=== PATIENT | female | born 1955 | race Hispanic/Latino ===

== ENCOUNTER → 2022-06-14 | Outpatient (CLI) | payer OTHER | END | disposition home or self-care (01) | LOC: RAH 14:08 | PROVIDERS: ATTEND Internal Medicine Critical Care Medicine | DX: I70.213 Atherosclerosis of native arteries of extremities with intermittent claudication, bilateral legs (principal) | CPT/HCPCS: 93925 ==

== ENCOUNTER 2025-01-22 08:07 | Inpatient (IN) | payer OTHER ==
[2025-01-22] VITALS (61 sets, daily range): BP systolic 58–136; BP diastolic 32–78; PULSE 91–140; RESP 5–20; TEMP 97.3; O2SAT 98–100
[~2025-01-22] VITALS: Ht 400 cm; Wt 95.7 kg
[2025-01-22 08:57] LABS: IMMATURE GRANULOCYTE ABSOLUTE 0.06 K/uL (0-1); NUCLEATED RED BLOOD CELLS 0.0 % (0.0-0.19); PLATELET COUNT (AUTO) 456 K/uL (130-400); RED BLOOD CELL COUNT(AUTO) 3.15 MIL/uL (4.00-5.50); RED CELL DISTRIBUTION WIDTH 16.6 % (11.0-15.5); WHITE BLOOD COUNT (AUTO) 9.1 K/uL (4.8-10.8)
[2025-01-22 09:10] LABS: CREATININE 1.7 mg/dL (0.5-1.0); GLOMERULAR FILTR. RATE CALC 32.0 mL/min (>90); GLUCOSE,RANDOM 234.0 mg/dL (70-105); SODIUM SERUM 138.0 mmol/L (136-145); UREA NITROGEN, BLOOD 33.0 mg/dL (7-18)
[2025-01-22 09:14] LABS: ASPARTATE AMINOTRANSFERASE 42.0 U/L (10-37); TOTAL PROTEIN, SERUM 5.0 g/dL (6.0-8.3)
--- NOTE | 2025-01-22 10:00 | HMCIMG ---
EXAM: Chest radiograph 1 view HISTORY: Chest pain COMPARISON: None FINDINGS: No pulmonary consolidations. No pleural effusion or pneumothorax. Enlarged cardiac silhouette. Tortuous calcified aorta. No overt congestion. Degenerative changes. IMPRESSION: No acute cardiopulmonary disease. /[place]ell
--- NOTE | 2025-01-22 10:51 | HMCIMG ---
CT ABDOMEN/PELVIS W/O CONTRAST REASON: gi bleed COMPARISON: None. FINDINGS: Lung bases are clear. There is a small left-sided pleural effusion. There is coronary calcifications suggesting coronary artery disease. There is suggestion of small pericardial effusion. There is a moderate size hiatal hernia. . There are no focal liver lesions. There are normal-appearing kidneys.. Spleen and pancreas appear unremarkable. The gallbladder appears normal as well. There is a feeding gastrostomy tube in place. Bowel loops appear unremarkable. This includes normal appearance of the appendix . There is fecal stasis in the rectal vault. Abutting the right lobe of the bowel in the right lower quadrant and abutting the right psoas muscle there is a a cystic structure measuring 5.9 x 3.9 cm. There is no evidence of free fluid or intraperitoneal air. There are no focal fluid collections. The retroperitoneum appear normal as do pelvic soft tissue structures. Aorta and iliac vessels demonstrate diffuse atherosclerotic changes. The anterior abdominal wall is intact. Osseous structures appear unremarkable. The uterus is surgically absent. IMPRESSION: 1. No acute process seen in CT of abdomen and pelvis without intravenous contrast 2. In the right adnexal region there is a cystic structure measuring 5.9 x 3.9 cm 3. Fecal stasis impaction seen in the rectal vault CT was performed with one or more following dose reduction techniques: automated exposure control, adjustment of the mA and kv according to patient's size, or use of a iterative reconstruction technique.
[2025-01-22] MEDS: NOREPINEPHRIN 4MG/NS 250ML 250 ML IV SCH (11:06)
--- NOTE | 2025-01-22 11:11 | ERN ---
General Chief Complaint: Hematemesis/Vomiting Blood Stated Complaint: COFFEE GROUND EMESIS Time Seen by MD: 08:09 Source: patient History of Present Illness Initial Comments Patient is a 70-year-old female went in to be evaluated for GI bleed. Per has been patient had been evaluated in the past for a similar episode was diagnosed with peptic/gastric ulcers. Patient does has a PEG tube in place but has been states he does not use it. PEG tube was placed two weeks ago. Allergies: Coded Allergies: No Known Drug Allergies (Unverified Allergy, Unknown, 01/22/25) Past Medical History Past Medical History: Anemia, CVA, Diabetes-Type II, Hypertension, Seizure, Vascular Disease Past Surgical History: Unknown ROS Dictation CONSTITUTIONAL: No chills, no fever, no weakness, no diaphoresis, no malaise. HEAD/FACE: No signs of trauma. EENT: No eye pain, no blurred vision, no tearing, no double vision, no ear pain, no ear discharge, no nose pain, no nasal congestion, no throat pain, no throat swelling, no mouth pain. RESPIRATORY: No cough, no orthopnea, no SOB, no stridor, no wheezing. CARDIOVASCULAR: No chest pain, no edema, no palpitations, no syncope. GASTROINTESTINAL/ABDOMINAL: abdominal pain, constipation, no diarrhea, no nausea, no vomiting. GENITOURINARY: No abnormal discharge, no dysuria, no frequent urination, no hematuria. No complaints of pain in the genitals. MUSCULOSKELETAL: No back pain, no gout, no joint pain, no joint swelling, no muscle pain, no muscle stiffness, no neck pain. INTEGUMENTARY: No change in color, no change in hair/nails, no dryness, no lesion, no lumps, no rash. NEUROLOGICAL/PSYCH: No anxiety, not depressed, no emotional problem, no headache, no numbness, no pre-existing deficit, no history of seizures, no tremors, no weakness. HEMATOLOGIC/LYMPHATIC: Not anemic, no history of blood clots, no apparent bleeding, no bruising, glands not swollen. All Systems Negative, Except as Noted. Physical Exam Physical Exam Dictation VITAL SIGNS: Reviewed. GENERAL APPEARANCE: Alert, oriented x3, no acute distress, obese. HEAD AND FACE: Non-traumatic. EYES: PERRL, pink conjunctivas, eyelid no trauma, anterior chamber clear. EARS: Pinnas intact and no signs of trauma or erythema. Ear canals clear and no discharge. TMs no erythema. NOSE: No discharge, no bleeding. OROPHARYNX: Mouth normal, teeth no caries, tongue pink. Pharynx clear, no erythema. Tonsils no exudates, no abscesses noted. Mucous membrane moist. NECK: Supple, non-tender, no thyromegaly, no masses, no JVD, no bruits. BREAST: Deferred. CHEST: No tenderness, no crepitus, no paradoxical movement, no retractions. LUNGS: Clear, well-ventilated, symmetric, no rales, no wheezing, no rhonchi, no stridor, good breath sounds bilaterally. HEART: Regular rate, regular rhythm, no murmur, no gallops. VASCULAR: No peripheral edema. ABDOMEN: Soft, positive bowel sounds, nondistended, no guarding, nontender, no rebound, no masses no hepatomegaly, no splenomegaly, no Hunt's sign, no hernias. PEG tube in place RECTAL: Deferred. GENITAL: Deferred. NEUROLOGICAL: Normal speech, gross motor function intact, gross sensory function intact. MUSCULOSKELETAL: Neck nontender, full range of motion, back nontender, full range of motion. EXTREMITIES: Nontender, full range of motion. SKIN: Color pink, dry, no turgor, no rash, no lacerations, no abrasions, no contusions. LYMPHATICS: Deferred. Results Laboratory and Microbiology Lab and Micro Result Laboratory Tests Test 01/22/25 08:53 White Blood Count 9.1 K/uL (4.8-10.8) Red Blood Count 3.15 MIL/uL (4.00-5.50) L Hemoglobin 9.1 g/dL (12.0-16.0) L Hematocrit 27.3 % (36-48) L Mean Corpuscular Volume 86.7 fL (79-99) Mean Corpuscular Hemoglobin 28.9 pg (27.0-33.0) Mean Corpuscular Hemoglobin Concent 33.3 g/dL (32.0-36.0) Red Cell Distribution Width 16.6 % (11.0-15.5) H Platelet Count 456 K/uL (130-400) H Mean Platelet Volume 10.2 fL (7.5-10.5) Immature Granulocyte % (Auto) 0.7 % (0-1) Neutrophils (%) (Auto) 67.8 % (40.0-77.0) Lymphocytes (%) (Auto) 22.7 % (21.0-51.0) Monocytes (%) (Auto) 7.1 % (3.0-13.0) Eosinophils (%) (Auto) 0.9 % (0.0-8.0) Basophils (%) (Auto) 0.8 % (0.0-5.0) Neutrophils # (Auto) 6.2 K/uL (1.8-7.7) Lymphocytes # (Auto) 2.1 K/uL (1.0-4.8) Monocytes # (Auto) 0.6 K/uL (0.1-1.0) Eosinophils # (Auto) 0.08 K/uL (0.00-0.70) Basophils # (Auto) 0.07 K/uL (0.00-0.20) Absolute Immature Granulocyte (auto 0.06 K/uL (0-1) Nucleated Red Blood Cells 0.0 % (0.0-0.19) Sodium Level 138 mmol/L (136-145) Potassium Level 3.1 mmol/L (3.5-5.1) L Chloride Level 102 mmol/L (101-111) Carbon Dioxide Level 33 mmol/L (21-32) H Blood Urea Nitrogen 33 mg/dL (7-18) H Creatinine 1.7 mg/dL (0.5-1.0) H Glomerular Filtration Rate Calc 32 mL/min (>90) Random Glucose 234 mg/dL (70-105) H Total Calcium 7.6 mg/dL (8.5-10.1) L Total Bilirubin 0.5 mg/dL (0.2-1.0) Aspartate Amino Transf (AST/SGOT) 42 U/L (10-37) H Alanine Aminotransferase (ALT/SGPT) 15 U/L (12-78) Alkaline Phosphatase 153 U/L (50-136) H Total Protein 5.0 g/dL (6.0-8.3) L Albumin 0.9 g/dL (3.5-5.0) L Lipase 16 U/L (16-77) Labs Reviewed?: Yes MDM MDM: Differential diagnosis: GI bleed, peptic ulcer disease, constipation, hypotension, Rationale: Tests considered and ordered secondary to shared decision making include: Previous outside records reviewed: Old ER visits. Risk of complication and/or morbidity or mortality of patient management: None Medications-Per medication reconciliation Need for hospitalization: Patient does meet criteria for hospitalization. Need for emergency major/minor surgery: No There are no social concerns with this patient. Prescription drug management Prescriptions will include symptomatic care Patient's prior external medical records from other ER visits were reviewed by me as indicated. Prior testing and results from previous visits were reviewed. Prior tests were taken into account with medical decision making and resource utilization, independent historian/historians were used to obtain complete medical history. I independently interpreted the test that were performed, results were reviewed by me and considered findings on radiology if ordered. Medical management and examination interpretation discussions were had by me with other qualified healthcare professionals as indicated for the patient's care. Consulted tube room supervisor on the case, patient will be admitted under the care of hospitalist group. ED Course Orders Procedure Category Date Status Time Cbc With Differential LAB 01/22/25 Complete 08:18 Comprehensive LAB 01/22/25 Complete Metabolic Panel 08:18 Urinalysis Profile LAB 01/22/25 Logged 08:18 Occult Blood Stool LAB 01/22/25 Logged Single Only 08:18 Chest 1vw RAD 01/22/25 Resulted 08:18 Lipase LAB 01/22/25 Complete 08:18 Pantoprazole 40mg Inj PHA 01/22/25 Complete (Protonix 40mg Inj 09:00 Pantoprazole 40mg Inj PHA 01/22/25 In Process (Protonix 40mg Inj 09:00 Norepinephrin 4mg/Ns PHA 01/22/25 In Process 250ml (Levophed 4mg 10:00 Ct Abdomen/Pelvis W/O CT 01/22/25 Resulted Contrast 09:48 Potassium Chloride PHA 01/22/25 In Process 10meq/100ml (Potassiu 10:30 Type And Screen BBK 01/22/25 Logged 11:13 Current Medications Medications (Trade) Dose Ordered Sig/Arik Route PRN Reason Start Time Stop Time Status Last Admin Dose Admin Norepinephrine 250 ml @ 0 mls/hr PROTOCOL IV 01/22/25 10:00 02/21/25 09:59 01/22/25 11:06 Pantoprazole Sodium (PROTonix 40MG INJ) 80 mg ONCE ONCE IVP 01/22/25 09:00 01/22/25 09:01 DC 01/22/25 09:02 Pantoprazole Sodium 80 mg/ Sodium Chloride 100 ml @ 10 mls/hr Q10H IV 01/22/25 09:00 02/21/25 08:59 01/22/25 09:35 Potassium Chloride 100 ml @ 100 mls/hr ONCE ONCE IV 01/22/25 10:30 01/22/25 11:29 Vital Signs Date Time Temp Pulse Resp B/P (MAP) Pulse Ox O2 Delivery O2 Flow Rate FiO2 01/22/25 11:06 86/47 01/22/25 10:04 97.7 106 16 91/52 96 Room Air* 0 21 01/22/25 09:20 97.7 109 16 86/42 97 Room Air* 0 21 01/22/25 08:09 97.5 74 16 169/108 96 Room Air 0 Critical Care Note Comments Critical Care Procedure Note Authorized and Performed by: me Total critical care time: Approximately 36 minutes Due to a high probability of clinically significant, life threatening deterioration, the patient required my highest level of preparedness to intervene emergently and I personally spent this critical care time directly and personally managing the patient. This critical care time included obtaining a history; examining the patient; pulse oximetry; ordering and review of studies; arranging urgent treatment with development of a management plan; evaluation of patient's response to treatment; frequent reassessment; and, discussions with other providers. This critical care time was performed to assess and manage the high probability of imminent, life-threatening deterioration that could result in multi-organ failure. It was exclusive of separately billable procedures and treating other patients and teaching time. Please see MDM section and the rest of the note for further information on patient assessment and treatment. DX & DISP Disposition: Inpatient Decision to Admit Time: 11:22 Departure Impression: Primary Impression: GI bleed Additional Impressions: Peptic ulcer disease, Impaction of colon, Hypotension Condition: Stable Referrals: WILLIAMS COLLIER (PCP) JULISA PETERSON MD Jan 22, 2025 11:11
--- NOTE | 2025-01-22 11:35 | NUR ---
RSI DONE AT THIS TIME ON PATIENT DUE TO HEMATEMESIS EPISODE AND LETHARGY NOTED. 11:36 100 MG KETAMINE GIVEN IV PUSH FOLLOWED WITH 10 CC FLUSH AND 50 MG ROCURONIUM GIVEN IV PUSH AND FOLLOWED WITH 10 CC FLUSH. 11:37 PATIENT INTUBATED WITH 7.5 SIZE TUBE AND 25 AT THE LIP. 11:39 PATIENT NOTED TO HAVE PRESSURE WOUNDS TO THE GLUTEAL AREA, PICTURES TAKEN AND WOUND CENTER NOTIFIED.
--- NOTE | 2025-01-22 11:35 | NUR ---
transferred pt care to pedor luis martinez. pt is going to intubated.
--- NOTE | 2025-01-22 11:49 | HP ---
[facility] HISTORY AND PHYSICAL Date of Service: Jan 22, 2025 Time of Service: 11:48 HISTORY OF PRESENT ILLNESS: 70-year-old female with past medical history of diabetes mellitus type 2, hypertension, anemia, history of CVA, history of right below-knee amputation who presented to the hospital secondary to hematemesis. Patient is currently intubated and sedated. The patient's history is mostly obtained from patient's who is present at bedside and from ED provider. The patient was noted to have black colored vomit at home which started yesterday. She has a history of peptic ulcer disease. She also has a PEG tube placed around two weeks ago. Peg tube was placed in [facility]. Per patient is able to swallow better now. denied any fever, chills, shortness for breath, chest pain. History is fairly limited at this time as patient is not able to participate in conversation. Labs were Notable for white count of 9.1, hemoglobin was 9.1, MCV was 86.7, platelet count was 456 K, sodium was 138, potassium was 3.1, bicarb was , creatinine was 1.7, glucose was 234, alk-phos was 153, total protein was 5.0, albumin was 0.9, lipase was negative normal Underwent a CT abdomen pelvis which showed no acute process in the CT abdomen without IV contrast. Patient was noted to have cystic structure in the right adrenal region measuring 5.9 x 3.9 cm. The patient also had fecal impaction noted. In the ED patient had episode of hematemesis and she was intubated for airway protection by ED provider. REVIEW OF SYSTEMS CONSTITUTIONAL: Denies fevers, chills, or night sweats. No unintentional weight loss reported. NEUROLOGICAL: Denies headache, amaurosis fugax, motor weakness, sensory deficit, vertigo/spinning sensation, gait abnormalities, or tremors. ENT: No hearing loss, otalgia, otorrhea, rhinitis, rhinorrhea, hoarseness, or sore throat. CARDIOVASCULAR: Denies any exertional angina, dyspnea on exertion, orthopnea, paroxysmal nocturnal dyspnea, palpitations, life-threatening arrhythmias, claudication. PULMONARY: Denies any shortness of breath, cough, phlegm/sputum, hemoptysis, pleuritic chest pain. GASTROINTESTINAL: Positive for nausea, vomiting, hematemesis. Denied hematochezia, melena GENITOURINARY: Denies frequency, urgency, nocturia, hematuria or incontinence (Storage/Irritative symptoms.) Low urinary stream, straining to void, urinary intermittency or hesitancy, splitting of the voiding stream, terminal dribbling. ENDOCRINOLOGIC: Denies polyuria, polydipsia, polyphagia or heat/cold intolerances. HEMATOLOGIC: Denies thrombophilia/previous clots, or coagulopathy/bleeding disorders. ONCOLOGIC: Denies personal history of malignancy. DERMATOLOGIC: Denies rashes or pruritus. PSYCHIATRIC: Denies any suicidal or homicidal ideation. Denies hallucinations. PAST MEDICAL HISTORY: Diabetes mellitus type 2, hypertension, anemia, history of CVA history of right below-knee amputation PAST SURGICAL HISTORY: Right below-knee amputation History of PEG tube placement PAST SOCIAL HISTORY: Unable to obtain FAMILY HISTORY: Unable to obtain Coded Allergies: No Known Drug Allergies (Unverified Allergy, Unknown, 01/22/25) PHYSICAL EXAM GENERAL APPEARANCE: He is currently intubated and sedated NEUROLOGICAL: Cranial nerves II-XII grossly intact. Motor is 5/5 in bilateral upper and lower extremities proximal to distal. No sensory deficits. HEENT: Face is symmetric. Pupils are equal and reactive. Extraocular movements are intact. NECK: Supple. No JVD. No thyromegaly. No submental, submandibular, pre- /postauricular, occipital or supraclavicular lymphadenopathy. CHEST: Normal chest expansion. No Telemetry. LUNGS: Absence of any rales, rhonchi or any wheezing. CARDIOVASCULAR: Regular. S1 and S2 normal. No appreciable rubs, murmurs or gallops. ABDOMEN: Soft, nontender, and nondistended. There is no rebound, voluntary guarding, or rigidity. Patient has a PEG tube in place : Deferred. No Kamara. EXTREMITIES: Below-knee amputation of the right lower extremity SKIN: No skin breakdown. Vital Sign (Last 24 Hours) 01/22/25 01/22/25 10:04 11:06 Temp 97.7 Pulse 106 Resp 16 B/P (MAP) 86/47 Pulse Ox 96 O2 Delivery Room Air* O2 Flow Rate 0 FiO2 21 LABS: Laboratory: Test 01/22/25 08:53 Range/Units White Blood Count 9.1 4.8-10.8 K/uL Red Blood Count 3.15 L 4.00-5.50 MIL/uL Hemoglobin 9.1 L 12.0-16.0 g/dL Hematocrit 27.3 L 36-48 % Mean Corpuscular Volume 86.7 79-99 fL Mean Corpuscular Hemoglobin 28.9 27.0-33.0 pg Mean Corpuscular Hemoglobin Concent 33.3 32.0-36.0 g/dL Red Cell Distribution Width 16.6 H 11.0-15.5 % Platelet Count 456 H 130-400 K/uL Mean Platelet Volume 10.2 7.5-10.5 fL Immature Granulocyte % (Auto) 0.7 0-1 % Neutrophils (%) (Auto) 67.8 40.0-77.0 % Lymphocytes (%) (Auto) 22.7 21.0-51.0 % Monocytes (%) (Auto) 7.1 3.0-13.0 % Eosinophils (%) (Auto) 0.9 0.0-8.0 % Basophils (%) (Auto) 0.8 0.0-5.0 % Neutrophils # (Auto) 6.2 1.8-7.7 K/uL Lymphocytes # (Auto) 2.1 1.0-4.8 K/uL Monocytes # (Auto) 0.6 0.1-1.0 K/uL Eosinophils # (Auto) 0.08 0.00-0.70 K/uL Basophils # (Auto) 0.07 0.00-0.20 K/uL Absolute Immature Granulocyte (auto 0.06 0-1 K/uL Nucleated Red Blood Cells 0.0 0.0-0.19 % Sodium Level 138 136-145 mmol/L Potassium Level 3.1 L 3.5-5.1 mmol/L Chloride Level 102 101-111 mmol/L Carbon Dioxide Level 33 H 21-32 mmol/L Blood Urea Nitrogen 33 H 7-18 mg/dL Creatinine 1.7 H 0.5-1.0 mg/dL Glomerular Filtration Rate Calc 32 >90 mL/min Random Glucose 234 H 70-105 mg/dL Total Calcium 7.6 L 8.5-10.1 mg/dL Total Bilirubin 0.5 0.2-1.0 mg/dL Aspartate Amino Transf (AST/SGOT) 42 H 10-37 U/L Alanine Aminotransferase (ALT/SGPT) 15 12-78 U/L Alkaline Phosphatase 153 H 50-136 U/L Total Protein 5.0 L 6.0-8.3 g/dL Albumin 0.9 L 3.5-5.0 g/dL Lipase 16 16-77 U/L Current Medications Medications (Trade) Dose Ordered Sig/Arik Route PRN Reason Start Time Stop Time Status Last Admin Dose Admin Norepinephrine 250 ml @ 0 mls/hr PROTOCOL IV 01/22/25 10:00 02/21/25 09:59 01/22/25 11:06 30 MLS/HR Pantoprazole Sodium 80 mg/ Sodium Chloride 100 ml @ 10 mls/hr Q10H IV 01/22/25 09:00 02/21/25 08:59 01/22/25 09:35 10 MLS/HR Pharmacy Profile Note (Pharmacy Communication) 1 each ONCE MISC 01/22/25 12:00 01/29/25 11:59 [facility] / RADIOLOGY: [ ] ASSESSMENT: Hematemesis POA Hemorrhagic shock Acute hypoxic respiratory failure status post intubation for airway protection Peg tube placement Peptic ulcer disease Fecal impaction Obesity BMI 36.6 fecal impaction Knee injury versus underlying CKD Diabetes mellitus type 2 with associated hyperglycemia Severe hypoalbuminemia Hypertension Debility Small pericardial Effusion Left-sided pleural effusion PLAN: - patient to be admitted to ICU -in reference to hematemesis. We will check H&H q.4 hours. Patient to have type and screen. If hemoglobin is less than seven. Patient will be receiving blood transfusion. The patient will continue on Protonix drip and start patient on octreotide drip. Obtain GI consultation - will request critical care consultation. Will follow critical care recommendations regarding ventilator and sedation protocol -patient to be started on NS for gentle hydration -obtain urine sodium, urine creatinine. Assess for proteinuria obtain nephrology consultation -start patient on Rocephin - echocardiogram to assess for pericardial effusion -further orders per hospitalization course. Plan of care was discussed with patient's at bedside. The patient's condition is critical. Prognosis remains guarded. Advanced Care Planning Which of the following were discussed: Hospice care: Yes __ No _x_ Therapeutic options: Yes __ No __ Advance directives: Yes __ No __ Other discussions: Pt is full code Discussed with who?: patient (Patient, family or surrogates) Voluntary nature of this service was explained to the patient? Yes _x_ No __ Amount of time spent: 35 minutes KENA Ibarra MD, MD Jan 22, 2025 11:48
[2025-01-22] MEDS ORDERED: PHARMACY COMMUNICATION MISC SCH ×2 (12:00)
--- NOTE | 2025-01-22 12:11 | HMCIMG ---
EXAM: CR Chest, 2 View. CLINICAL HISTORY: S/P INTUBATION. ET tube position COMPARISON: Radiograph from January 22 at 8:53 AM FINDINGS: Endotracheal tube terminates 1.4 cm above the arminda. LUNGS: There is no mass, infiltrate, or acute pulmonary abnormality. PLEURAL SPACES: No pleural effusion or pneumothorax. MEDIASTINUM: Cardiac size and mediastinal contours within normal limits. Atherosclerosis of the thoracic aorta. BONES: No acute osseous abnormality. IMPRESSION: 1. Endotracheal tube positioned 1.4 cm above the arminda. 2. No acute cardiopulmonary abnormality. /[place]
[2025-01-22] MEDS: MIDAZOLAM 50MG-0.9% NS 50ML 50 ML IV SCH (12:19)
[2025-01-22 12:23] LABS: ABG BASE EXCESS 2.2 mmol/L (-2.0-3.0); ABG HCO3 22.9 mmol/L (21.0-28.0); ABG OXYGEN SATURATION 99.3 % (94.0-98.0); ABG PCO2 23 mmHg (32-45); CARBON MONOXIDE 0.2 % (0.5-1.5); TEMPERATURE, CELSIUS BG 37.0 CELSIUS (35.5-37.0); VENT MODE, BG AC (ROOM AIR)
[2025-01-22 12:29] LABS: GLUCOSE, URINE (UA) 30 mg/dL (NEGATIVE); LEUKOCYTE ESTERASE ,URINE 500 Leu/uL (NEGATIVE); NITRATE,URINE NEGATIVE (NEGATIVE); OCCULT BLOOD,URINE MODERATE (NEGATIVE)
[2025-01-22] MEDS ORDERED: [UNRECOGNIZED DRUG - OTHER] IV SCH (12:30)
[2025-01-22] MEDS ORDERED: OCTREOTIDE ACETATE IV SCH (12:30)
[2025-01-22 12:31] LABS: ADD UA MICROSCOPIC YES; APPEARANCE,URINE CLOUDY (CLEAR)
[2025-01-22 12:32] LABS: CREATININE,URINE RANDOM 70.4 mg/dL (30-135)
--- NOTE | 2025-01-22 12:34 | NUR ---
12:26 CENTRAL LINE INSERTED TO THE RIGHT FEMORAL SIZE 18, [address] PETERSON, POSITIVE BLOOD RETURN TO ALL 3 LUMENS PRESENT. 12:35 ORAL GASTRIC TUBE PLACED SIZE 16F AND 45 AT THE LIP, POSITIVE AUSCULATATION PRESENT TO CHECK PLACEMENT.
[2025-01-22 12:37] LABS: SQUAMOUS EPITHELIAL CELL,UR MOD /HPF (0-2); YEAST,URINE BUDDING MANY /HPF (None Seen)
[2025-01-22] MEDS: 0.9%NACL 1000ML 1,000 ML IV ONE (12:40)
[2025-01-22] MEDS ORDERED: CLOP75TA32 PO (13:23)
[2025-01-22] MEDS ORDERED: LEVE-21 PO (13:23)
[2025-01-22] MEDS ORDERED: ROPI0.2535 PO (13:23)
[2025-01-22] MEDS ORDERED: LISI5TAB21 PO (13:23)
[2025-01-22 13:53] LABS: ABG PH 7.614 (7.350-7.450)
[2025-01-22 13:54] LABS: PO2, ARTERIAL BG 362.1 mmHg (83.0-108.0)
[2025-01-22] MEDS: 0.9%NACL 1000ML 2,000 ML IV ONE (14:22)
[2025-01-22] MEDS ORDERED: VANCOMYCIN PROTOCOL PER PHARMACY IV SCH (15:00)
[2025-01-22] MEDS ORDERED: GLUCAGON 1MG KIT 1 MG ML IM PRN (15:30)
--- NOTE | 2025-01-22 15:39 | CONS ---
[facility] CONSULTATION NOTE Date Patient Seen: Jan 22, 2025 Time of Visit: 14:50 Supervising Physician: JOE RAMOS MD Reason for Consultation: [facility] Primary Care Physician: NANDO HUYNH Outpatient Specialists: [ ] Inpatient Consults: DR RAMOS, DR HEAD, DR SIMENTAL PROBLEM LIST: Septic shock requiring pressors, POA Acute metabolic encephalopathy POA Acute Hypoxic rep failure requiring intubation for airway protection POA Acute complicated cystitis POA Acute on chronic anemia 2/ GI Bleed (Hematemesis) POA Hyperglycemia in the presence of type 2 diabetes mellitus, POA right adnexal region there is a cystic structure measuring 5.9 x 3.9 cm Normocytic anemia Thrombocytosis Hypokalemia Electrolyte derangement (hypokalemia, hypocalcemia) DAVID severe Hypoalbuminemia Malnutrition Transaminitis Elevated TSH suspected myxedema Comorbidities: Uncontrolled type 2 diabetes mellitus Essential hypertension Anemia Prior history of CVA Right lsbph-ybt-ptxs amputation G-tube in situ Bed ridden Recent hospitalization [facility] for hematemesis HPI: This is a 70-year-old chronically ill female with a past medical history of type 2 diabetes mellitus, essential hypertension, anemia, history of prior CVA, right sfvtm-qmm-fwxm amputation, bed ridden, who presented to the ED for evaluation of coffee brown hematemesis. On arrival to the ED patient has a temperature 97.5 heart rate in the 70s respiratory rate of 16 blood pressure 169/108 saturating 96% on room air. Laboratory shows white count of 9.1 hemoglobin of 9.1 hematocrit of 27.3 and platelet count of 456 K. chemistries sodium was 138 potassium of 3.1 chloride of 102 carbon dioxide three three BUN 33 creatinine 1.7 GFR of 32 and glucose of 234 mg/dL. Hemoglobin A1c of 6.4. Procalcitonin of 2.13, TSH is 25.66 alkaline phosphatase of 153 AST 42 total calcium 7.6 albumin of 0.9. For primary RN patient was lethargic and had an episode of hematemesis in the ED. Patient was intubated in ED for airway protection. Chest x-ray shows no acute pulmonary disease. CT abdomen and pelvis without contrast shows no acute process seen CT of the abdomen and pelvis without intravenous contrast. In the right adnexal region there is a cystic structure measuring 5.9 x 3.9 cm. Fecal stasis impaction seen in the rectal vault. PAST MEDICAL HX: see above PAST SURGICAL HX: noncontributory SOCIAL HISTORY: No tobacco, ETOH, or illicit drug use Coded Allergies: No Known Drug Allergies (Unverified Allergy, Unknown, 01/22/25) REVIEW OF SYSTEMS: Unable to obtain due to patient's intubated PHYSICAL EXAM: GENERAL: Critically ill intubated and sedated. HEENT: Sclera non icteric, dry mucosa NECK: Supple, no JVD, trachea midline LUNGS: Clear breath sounds bilaterally. No wheezes HEART: Regular rate and rhythm. Normal S1 and S2, without murmurs ABD: Abdomen soft, nontender. Bowel sounds present EXT: No clubbing cyanosis or edema, history of right BKA NEURO: Intubated and sedated Vital Signs (last 8hr) Date Time Temp Pulse Resp B/P (MAP) Pulse Ox O2 Delivery O2 Flow Rate FiO2 01/22/25 14:24 113/76 01/22/25 14:05 97.9 115 12 113/65 100 Ventilator+ 50 01/22/25 13:15 97.7 123 22 117/83 100 Ventilator+ 50 01/22/25 12:48 50 01/22/25 12:30 97.7 125 20 99/52 96 Room Air* 0 40 Ventilator+ 01/22/25 12:06 97.7 114 20 147/92 99 Ventilator+ 40 01/22/25 11:41 123 100 01/22/25 11:15 97.7 110 16 86/47 96 Room Air* 0 21 01/22/25 11:06 86/47 01/22/25 10:04 97.7 106 16 91/52 96 Room Air* 0 21 01/22/25 09:20 97.7 109 16 86/42 97 Room Air* 0 21 01/22/25 08:09 97.5 74 16 169/108 96 Room Air 0 LABS: Hematology Labs: Test 01/22/25 12:11 01/22/25 08:53 Range/Units Hemoglobin 9.2 L 12.0-16.0 g/dL Hematocrit 27.2 L 36-48 % White Blood Count 9.1 4.8-10.8 K/uL Red Blood Count 3.15 L 4.00-5.50 MIL/uL Mean Corpuscular Volume 86.7 79-99 fL Mean Corpuscular Hemoglobin 28.9 27.0-33.0 pg Mean Corpuscular Hemoglobin Concent 33.3 32.0-36.0 g/dL Red Cell Distribution Width 16.6 H 11.0-15.5 % Platelet Count 456 H 130-400 K/uL Mean Platelet Volume 10.2 7.5-10.5 fL Immature Granulocyte % (Auto) 0.7 0-1 % Neutrophils (%) (Auto) 67.8 40.0-77.0 % Lymphocytes (%) (Auto) 22.7 21.0-51.0 % Monocytes (%) (Auto) 7.1 3.0-13.0 % Eosinophils (%) (Auto) 0.9 0.0-8.0 % Basophils (%) (Auto) 0.8 0.0-5.0 % Neutrophils # (Auto) 6.2 1.8-7.7 K/uL Lymphocytes # (Auto) 2.1 1.0-4.8 K/uL Monocytes # (Auto) 0.6 0.1-1.0 K/uL Eosinophils # (Auto) 0.08 0.00-0.70 K/uL Basophils # (Auto) 0.07 0.00-0.20 K/uL Absolute Immature Granulocyte (auto 0.06 0-1 K/uL Nucleated Red Blood Cells 0.0 0.0-0.19 % Chemistry Labs: Test 01/22/25 12:44 01/22/25 12:11 01/22/25 08:53 Range/Units Ammonia 13 11-32 umol/L Hemoglobin A1c 6.4 H 4.0-6.0 % Estimated Average Glucose (eAG) 137 H 70-126 mg/dL Procalcitonin 2.13 H 0.05-0.5 ng/mL Thyroid Stimulating Hormone (TSH) 25.66 H 0.36-3.74 uIU/mL Sodium Level 138 136-145 mmol/L Potassium Level 3.1 L 3.5-5.1 mmol/L Chloride Level 102 101-111 mmol/L Carbon Dioxide Level 33 H 21-32 mmol/L Blood Urea Nitrogen 33 H 7-18 mg/dL Creatinine 1.7 H 0.5-1.0 mg/dL Glomerular Filtration Rate Calc 32 >90 mL/min Random Glucose 234 H 70-105 mg/dL Total Calcium 7.6 L 8.5-10.1 mg/dL Total Bilirubin 0.5 0.2-1.0 mg/dL Aspartate Amino Transf (AST/SGOT) 42 H 10-37 U/L Alanine Aminotransferase (ALT/SGPT) 15 12-78 U/L Alkaline Phosphatase 153 H 50-136 U/L Total Protein 5.0 L 6.0-8.3 g/dL Albumin 0.9 L 3.5-5.0 g/dL Lipase 16 16-77 U/L DIAGNOSTICS / RADIOLOGY RESULTS: [facility] [address] [place] [address] IMAGING REPORT Signed PATIENT: JUSTIN KLINE MR#: [id number] : 1955 SEX: F AGE: 70 LOCATION: [facility] ORDER 9 STATUS: [facility] REPORT#: [id number] SERVICE 7 REASON: cp ORDERING PHYSICIAN: JULISA PETERSON MD PROCEDURE: CXR1VW - CHEST 1VW EXAM: Chest radiograph 1 view HISTORY: Chest pain COMPARISON: None FINDINGS: No pulmonary consolidations. No pleural effusion or pneumothorax. Enlarged cardiac silhouette. Tortuous calcified aorta. No overt congestion. Degenerative changes. IMPRESSION: No acute cardiopulmonary disease. /[place] DICTATED BY: DESTINY CASTELLANOS MD DATE: 01/22/251058 ELECTRONICALLY SIGNED BY: DESTINY CASTELLANOS MD DATE: 01/22/251058 PLAN CBC CMP Chest x-ray Panculture Flu and COVID Trend lactic acid Protocol CRP Blood cultures Broad-spectrum antibiotic Crystalloids 30 mL/kilogram and 1st 3 hours bolus Target map 65 Consider hydrocortisone 50 mg q.6 hours IV for vasopressor dependent NEURO: Minimize central acting medications as possible. Fall Precautions. Well lighted room through the day and minimize interruptions through the night to prevent acute delirium. PULMONARY: Supplemental 02 as needed Titrate Fio2 to keep Spo2 > or = 90% DuoNebs and CPT as needed IS hourly while awake for pulmonary hygiene Out of bed to chair as tolerated VAP Bundle Vent/BIPAP Settings: Assist-control volume control tidal volume of 400 respiratory rate of 18 FiO2 of 50% and PEEP of five. Maintain plateau pressure less than 30 CARDIOVASCULAR: Follow hemodynamics. Titrate vasopressor to keep MAP >65 or systolic blood pressure >95mmHg Drips: Fentanyl Versed Levophed Vasopressin Protonix Sandostatin LINES: Right femoral central line PICC line pending GI & NUTRITION: Continue nutritional support Aspirations precautions Prokinetic agents and laxatives as needed KIDNEYS & ELECTROLYTES: Strict monitoring of intake and output Daily weights Avoid nephrotoxic agents Monitor electrolytes and replace as needed Goal urine output of 30mL/hr or 0.5mL/kg/hr Urine output: [ ] Fluid Balance: [ ] ENDOCRINE: Maintain blood glucose between 100-180 at all times. Insulin sliding scale for blood glucose management INFECTIOUS DISEASE: Trend temperature. Leonard-culture if febrile. Micro: [ ] Antibiotics: [ ] HEMATOLOGY & COAGULATION: Monitor H&H. Keep Hgb > 7 Transfuse 1 unit of PRBC for Hgb < 7 Transfuse 1 pack of platelets of platelets < 20, 000 Watch for any signs and symptoms of bleeding SKIN: Pressure ulcer prevention per facility protocol Rehab: PT/OT Prophylaxis: GI: Protonix 40 mg b.i.d. DVT: SCDs avoid anticoagulants due to hematemesis Code Status: Full Resuscitation Disposition: [ ICU Other: Total patient care time exceeds 35 minutes excluding all procedures. Case was discussed and seen with my supervising physician. The above plan was formulated and agreed upon. ATTESTATION BY PHYSICIAN I reviewed the documentation, medical decision making, and treatment plan as noted by the mid-level provider above. I agree with the findings and plan of care. Joe Ramos MD, [facility] Jan 22, 2025 15:39
[2025-01-22 16:14] LABS: IMMATURE GRANULOCYTE ABSOLUTE 0.19 K/uL (0-1); NUCLEATED RED BLOOD CELLS 0.0 % (0.0-0.19); PLATELET COUNT (AUTO) 486 K/uL (130-400); RED BLOOD CELL COUNT(AUTO) 2.92 MIL/uL (4.00-5.50); RED CELL DISTRIBUTION WIDTH 16.8 % (11.0-15.5); WHITE BLOOD COUNT (AUTO) 13.8 K/uL (4.8-10.8)
[2025-01-22 16:34] LABS: ASPARTATE AMINOTRANSFERASE 29.0 U/L (10-37); CREATININE 1.8 mg/dL (0.5-1.0); GLOMERULAR FILTR. RATE CALC 30.0 mL/min (>90); GLUCOSE,RANDOM 286.0 mg/dL (70-105); SODIUM SERUM 145.0 mmol/L (136-145); TOTAL PROTEIN, SERUM 4.9 g/dL (6.0-8.3); UREA NITROGEN, BLOOD 34.0 mg/dL (7-18)
[2025-01-22 16:49] LABS: ABG BASE EXCESS -6.0 mmol/L (-2.0-3.0); ABG HCO3 18.0 mmol/L (21.0-28.0); ABG OXYGEN SATURATION 98.6 % (94.0-98.0); ABG PCO2 31 mmHg (32-45); ABG PH 7.390 (7.350-7.450); CARBON MONOXIDE 0.3 % (0.5-1.5); DEVICE COMMENT LR NELLY; PO2, ARTERIAL BG 188.4 mmHg (83.0-108.0); TEMPERATURE, CELSIUS BG 37.0 CELSIUS (35.5-37.0); VENT MODE, BG AC (ROOM AIR)
--- NOTE | 2025-01-22 17:23 | HMCIMG ---
EXAM: CR Chest, 2 View. CLINICAL HISTORY: post intubation CXR COMPARISON: None provided. FINDINGS: LUNGS: Endotracheal tube appears midline above arminda PLEURAL SPACES: No pleural effusion or pneumothorax. MEDIASTINUM: The cardiomediastinal silhouette is within normal limits. BONES: No acute osseous abnormality. MISCELLANEOUS: Question nasogastric tube in the thoracic inlet. IMPRESSION: 1. Endotracheal tube appears midline above arminda 2. Question nasogastric tube in the thoracic inlet. /[place]
[2025-01-22] MEDS: VANCOMYCIN 2GM/500 ML BAG 500 ML IV ONE (17:26)
[2025-01-22] MEDS: NOREPINEPHRINE 16MG/NS 250ML 250 ML IV ONE (17:51)
[2025-01-22] MEDS: 0.9%NACL 1000ML 1,000 ML IV SCH (20:43)
--- NOTE | 2025-01-22 21:02 | HMCIMG ---
EXAM: CR Abdomen, 1 View. CLINICAL HISTORY: NG tube location COMPARISON: None provided. FINDINGS: BOWEL: The bowel gas pattern is within normal limits. PERITONEUM/SOFT TISSUES: No free air evident. No pathologic appearing calcification. BONES: No acute osseous abnormality. MISCELLANEOUS: No nasogastric tube identified. Gastrostomy tube left upper IMPRESSION: 1. No nasogastric tube identified. 2. Gastrostomy tube left upper quadrant /[place]
[2025-01-22] MEDS: MAGNESIUM 2GM PREMIX 50ML 50 ML IV PRN (22:17)
[2025-01-22] MEDS: leveTIRACEtam 500 MG/5 ML SD V 500 MG in 0.9%NACL 100ML 100 ML IV SCH (22:43)
[2025-01-23] VITALS (117 sets, daily range): BP systolic 69–180; BP diastolic 36–117; PULSE 68–101; RESP 4–24; TEMP 97.6–98.5; O2SAT 98–100
[2025-01-23] MEDS: levoTHYROxine VIAL 100MCG IV SCH (06:01)
[2025-01-23 06:34] LABS: CREATININE 2.1 mg/dL (0.5-1.0); GLOMERULAR FILTR. RATE CALC 25.0 mL/min (>90); GLUCOSE,RANDOM 233.0 mg/dL (70-105); SODIUM SERUM 144.0 mmol/L (136-145); UREA NITROGEN, BLOOD 36.0 mg/dL (7-18)
--- NOTE | 2025-01-23 07:43 | HMCSR ---
APPROVED REPORT EXAM: Two-dimensional and M-mode echocardiogram with Doppler and color Doppler. INDICATION ICD: Assess pericardial effusion and ejection fraction 2D Dimensions RVDd3.0 cmLVEF(%)49.3 (>50%)LVED Vol(simp.)20.0 mL IVSd1.9 (0.7-1.1cm)FS(%)23 %LVES Vol(simp.)9.0 mL LVDd2.4 (3.8-5.6cm)LA (2D)2.6 (1.6-4.0cm)LVEF(%, simp.)55 % PWd2.0 (0.7-1.1cm)Ao Root(2D)2.7 (2.0-3.7cm)LA ESV INDEX (BP)22.00 mL/m2 IVSs2.0 cmLVOT diam2.0 (1.8-2.4cm) LVDs1.8 (2.5-4.0cm)IVC diam1.2 cm PWs1.7 cm Deformation Strain Apical 4-7.1 % Apical 2-6.9 % Apical 3-10.1 % Global Strain-8.0 % M-Mode Dimensions EPSS0.8 cm LA (MM)2.3 (1.6-4.0cm) Ao Root(MM)2.9 (2.0-3.7cm) Aortic Valve AoV Vmax2.1 m/Trice Peak GR17.0 mmHgLVOT Vmax2.1 m/s AoV VTI0.2 mAo Mean GR8.4 mmHgLVOT VTI0.22 m YASMEEN (VMAX)3.02 cm2AVA (VTI) 3.6 cm2 Mitral Valve MV E Vmax51.6 cm/sDECEL Time82 ms MV A Vmax69.0 cm/sP 1/2 T19 ms E/A ratio0.7MVA (PHT)11.9 cm2 TDI E/E' Medial6.8E/E' Lateral9.3 Medial E' Peak V7.57 cm/sLateral E' Peak V5.54 cm/s Pulmonary Valve PV Vmax1.3 m/sPV VTI0.14 mPV Mean GR3.5 mmHg PV Peak GR6.5 mmHg Tricuspid Valve TR Vmax1.5 m/sRAP (EST) 3 caRmKFIW09.4 mmHg TR Peak GR9.4 mmHg Left Ventricle Left ventricular cavity is small. GLS -8.0% Severe concentric left ventricular hypertrophy. LVEF is 5 0-55%. The left ventricular diastolic function is normal. Right Ventricle The right ventricle is normal size. The right ventricular systolic function is normal. Atria The left atrium size is normal. The right atrium is small in size. Aortic Valve The aortic valve is normal in structure. No aortic regurgitation is present. There is no aortic valvu lar stenosis. Mitral Valve The mitral valve is normal in structure. There is trace of mitral valve regurgitation noted. There is no mitral valve stenosis. Tricuspid Valve The tricuspid valve is normal in structure. There is trace of tricuspid valve regurgitation noted. Pulmonic Valve Pulmonic valve is not well visualized. There is no pulmonic valvular regurgitation. Great Vessels The aortic root is normal in size. The IVC is normal in size and collapses >50% with inspiration. Pericardium There is no pericardial effusion. Other Information Quality : Technically difficult study due to body habitus, pt intubatedRhythm : Tachycardia Conclusion LVEF is 50-55%. Severe concentric left ventricular hypertrophy. The left ventricular diastolic function is normal. There is no pericardial effusion.
--- NOTE | 2025-01-23 07:58 | HMCIMG ---
EXAMINATION: ULTRASOUND OF THE ABDOMEN (LIMITED) WITH COLOR DOPPLER. CLINICAL HISTORY: Transaminitis. To rule out CBD obstruction. COMPARISON: CT abdomen and pelvis without contrast from the same day. TECHNIQUE: Real-time grayscale ultrasound images of the abdomen. In addition, color Doppler is medically necessary to perform in order to evaluate vascularity and blood flow. FINDINGS: Liver: Normal in caliber, the right hepatic lobe measures 15.4 cm in the craniocaudal dimension. There is increased echogenicity of the hepatic parenchyma. There is no focal hepatic abnormality or intrahepatic biliary ductal dilatation. There is normal spectral Doppler of the main portal vein. Gallbladder: Within normal limits with normal wall thickness (0.22 cm). No hyperemia or pericholecystic free fluid. There are few calculi, the largest measure 1.5 cm. Common bile duct is normal in caliber, measuring 0.28 cm. Pancreas: Obscured by overlying bowel gas. The right kidney is normal in caliber, the right kidney measures 8.2 x 3.3 x 2.9 cm in craniocaudal, AP, and transverse dimensions respectively. There is normal renal cortical thickness, and cortical echogenicity. There is no renal calculus or hydronephrosis. IMPRESSION: Hepatic steatosis. Cholelithiasis. No cholecystitis. /[place]
--- NOTE | 2025-01-23 08:10 | NUR ---
Dr. Calhoun in , patient was prepared for EGD procedure. signed the consent.
--- NOTE | 2025-01-23 09:11 | HMCIMG ---
EXAM: CR Chest, 1 View. CLINICAL HISTORY: intubated,congestion COMPARISON: 01/22 16:55 EDT CR - CHEST 1VW FINDINGS: ET tube 3.7 cm above the arminda. LUNGS: The lungs show no infiltrate or other acute finding. PLEURAL SPACES: No pleural effusion or pneumothorax. MEDIASTINUM: Cardiac size and mediastinal contours within normal limits. BONES: No acute osseous abnormality. IMPRESSION: No acute cardiopulmonary pathology is evident. ET tube 3.7 cm above the arminda. /[place]
[2025-01-23] MEDS ORDERED: COMPOUND IV MISC 1 EACH IVSOLN MISC PRN (10:00)
--- NOTE | 2025-01-23 11:19 | PN ---
[facility] PROGRESS NOTE Date Patient Seen: Jan 23, 2025 Time of Visit: 11:18 Supervising Physician:Rivera RAMOS MD Primary Care Physician: NANDO HUYNH Outpatient Specialists: [ ] Inpatient Consults: DR RAMOS, DR HEAD, DR SIMENTAL PROBLEM LIST: Septic shock requiring pressors, POA Acute metabolic encephalopathy POA Acute Hypoxic rep failure requiring intubation for airway protection POA Acute complicated cystitis POA Acute on chronic anemia 2/ GI Bleed (Hematemesis) POA S/P EGD on 01/23/25 with findings of: Tear in lower 3rd of esophagus Erythematous mucosa in the stomach A gastric tube was found in the stomach Normal duodenal bulb and 2nd portion of the duodenum No specimens collected Hyperglycemia in the presence of type 2 diabetes mellitus, POA right adnexal region there is a cystic structure measuring 5.9 x 3.9 cm Normocytic anemia Thrombocytosis Hypokalemia Electrolyte derangement (hypokalemia, hypocalcemia) DAVID severe Hypoalbuminemia Malnutrition Transaminitis Elevated TSH suspected myxedema Dysphagia Gastrostomy Status POA Comorbidities: Uncontrolled type 2 diabetes mellitus Essential hypertension Anemia Prior history of CVA Right ecswm-joy-aqsm amputation G-tube in situ Bed ridden Recent hospitalization [facility] for hematemesis INTERVAL HISTORY: Patient is off sedation opening her eyes to voice. She is status post EGD with findings of esophageal tear in the lower 3rd of the esophagus with no bleeding. Large clot. No active bleeding. Associated severe esophagitis. LA grade D. Patient continues on IV drips with Omega-Synephrine weaning and Levophed at 0.04 mcg/kg per minute. Currently continues on ventilator. We will start spontaneous breathing trial once patient is more awake. Urine output only 50 mL in the last 24 hours. We will follow Nephrology recommendations. Hemoglobin of 8 0.2/24.1 platelet count of 489 K. Chemistries shows a BUN of 34 creatinine of 2.1 GFR of 25 glucose of 200 mg/dL. ISS adjusted with insulin sliding scale and Lantus subQ. Lactic acid trending down 2.9 this morning. Total calcium of 6.8 with a albumin of 1.01 total protein of 5.1 troponin initially 574.6 and on repeat 6 hours later 407 likely NSTEMI type 2 from demand ischemia given in the presence of septic shock and hypoxemic respiratory failure. ABGs show a pH of 7.38 pCO2 of 35 PO2 of 135.5 and bicarb 20.5 on FiO2 of 30%. I have communicated with the primary RN Alpa and RT of plans for spontaneous breathing trials once patient is more awake. REVIEW OF SYSTEMS: Unable to obtain due to patient's intubated PHYSICAL EXAM: GENERAL: Critically ill intubated and sedated. HEENT: Sclera non icteric, dry mucosa NECK: Supple, no JVD, trachea midline LUNGS: Clear breath sounds bilaterally. No wheezes HEART: Regular rate and rhythm. Normal S1 and S2, without murmurs ABD: Abdomen soft, nontender. Bowel sounds present EXT: No clubbing cyanosis or edema, history of right BKA NEURO: Intubated and sedated Vital Signs (last 8hr) Date Time Temp Pulse Resp B/P (MAP) Pulse Ox O2 Delivery O2 Flow Rate FiO2 01/23/25 09:45 81 30 01/23/25 09:30 111/69 01/23/25 08:14 Mask 10.0 01/23/25 08:14 68 16 102/62 100 Room Air 01/23/25 08:14 Mask 01/23/25 07:53 97.7 01/23/25 07:30 76 127/68 (87) 100 01/23/25 07:15 73 118/65 (82) 100 01/23/25 07:00 78 7 100/60 (73) 100 01/23/25 06:45 79 100 01/23/25 06:40 80 103/59 (74) 100 01/23/25 06:34 79 30 01/23/25 06:25 76 101/59 (73) 100 01/23/25 06:10 80 106/59 (75) 100 01/23/25 05:55 80 5 104/62 (76) 100 01/23/25 05:40 80 14 107/61 (76) 100 01/23/25 05:25 78 14 96/64 (75) 100 01/23/25 05:00 78 14 101/58 (72) 100 01/23/25 04:55 76 14 99/51 (67) 100 01/23/25 04:40 81 14 93/61 (72) 100 01/23/25 04:25 77 14 99/51 (67) 100 01/23/25 04:10 84 17 93/50 (64) 100 01/23/25 04:00 98 Ventilator+ 30 01/23/25 04:00 97.5 83 14 101/59 (73) 100 01/23/25 03:52 80 14 96/43 (60) 100 01/23/25 03:43 74 30 LABS: Hematology Labs: Test 01/23/25 07:36 01/22/25 16:00 Range/Units Hemoglobin 8.4 L 12.0-16.0 g/dL Hematocrit 24.9 L 36-48 % White Blood Count 13.8 #H 4.8-10.8 K/uL Red Blood Count 2.92 L 4.00-5.50 MIL/uL Mean Corpuscular Volume 86.3 79-99 fL Mean Corpuscular Hemoglobin 29.1 27.0-33.0 pg Mean Corpuscular Hemoglobin Concent 33.7 32.0-36.0 g/dL Red Cell Distribution Width 16.8 H 11.0-15.5 % Platelet Count 486 H 130-400 K/uL Mean Platelet Volume 10.6 H 7.5-10.5 fL Immature Granulocyte % (Auto) 1.4 H 0-1 % Neutrophils (%) (Auto) 78.0 H 40.0-77.0 % Lymphocytes (%) (Auto) 14.7 L 21.0-51.0 % Monocytes (%) (Auto) 5.7 3.0-13.0 % Eosinophils (%) (Auto) 0.0 0.0-8.0 % Basophils (%) (Auto) 0.2 0.0-5.0 % Neutrophils # (Auto) 10.7 H 1.8-7.7 K/uL Lymphocytes # (Auto) 2.0 1.0-4.8 K/uL Monocytes # (Auto) 0.8 0.1-1.0 K/uL Eosinophils # (Auto) 0.00 0.00-0.70 K/uL Basophils # (Auto) 0.03 0.00-0.20 K/uL Absolute Immature Granulocyte (auto 0.19 0-1 K/uL Nucleated Red Blood Cells 0.0 0.0-0.19 % Chemistry Labs: Test 01/23/25 06:13 01/23/25 05:50 01/22/25 19:53 01/22/25 16:00 Range/Units Whole Blood Glucose 221 H 70-110 MG/DL Sodium Level 144 136-145 mmol/L Potassium Level 3.4 L 3.5-5.1 mmol/L Chloride Level 110 101-111 mmol/L Carbon Dioxide Level 24 21-32 mmol/L Blood Urea Nitrogen 36 H 7-18 mg/dL Creatinine 2.1 H 0.5-1.0 mg/dL Glomerular Filtration Rate Calc 25 >90 mL/min Random Glucose 233 H 70-105 mg/dL Total Calcium 6.8 L 8.5-10.1 mg/dL Magnesium Level 1.60 L 1.80-2.40 mg/dL Thyroid Stimulating Hormone (TSH) 11.67 #H 0.36-3.74 uIU/mL Free Thyroxine (T4) Direct 0.67 L 0.76-1.46 ng/dL Free Triiodothyronine (T3) pg/mL 0.76 L 2.18-3.98 pg/mL Lactic Acid Level 5.7 H 0.8-2.5 mmol/L Total Bilirubin 0.3 # 0.2-1.0 mg/dL Aspartate Amino Transf (AST/SGOT) 29 10-37 U/L Alanine Aminotransferase (ALT/SGPT) 14 12-78 U/L Alkaline Phosphatase 147 H 50-136 U/L C-Reactive Protein, Quantitative 56.50 H 0.5-3.0 mg/L Total Protein 4.9 L 6.0-8.3 g/dL Albumin 0.9 L 3.5-5.0 g/dL Test 01/22/25 12:44 01/22/25 12:11 01/22/25 08:53 Range/Units Ammonia 13 11-32 umol/L Hemoglobin A1c 6.4 H 4.0-6.0 % Estimated Average Glucose (eAG) 137 H 70-126 mg/dL Procalcitonin 2.13 H 0.05-0.5 ng/mL Lipase 16 16-77 U/L DIAGNOSTICS / RADIOLOGY RESULTS: [[facility] [address] [place] [address] IMAGING REPORT Signed PATIENT: JUSTIN KLINE MR#: [id number] : 1955 SEX: F AGE: 70 LOCATION: 2CH ORDER STATUS: ADM IN REPORT#: [id number] SERVICE REASON: intubated,congestion ORDERING PHYSICIAN: KARL RODRIGUEZ PROCEDURE: CXR1VW - CHEST 1VW EXAM: CR Chest, 1 View. CLINICAL HISTORY: intubated,congestion COMPARISON: 01/22 16:55 EDT CR - CHEST 1VW FINDINGS: ET tube 3.7 cm above the arminda. LUNGS: The lungs show no infiltrate or other acute finding. PLEURAL SPACES: No pleural effusion or pneumothorax. MEDIASTINUM: Cardiac size and mediastinal contours within normal limits. BONES: No acute osseous abnormality. IMPRESSION: No acute cardiopulmonary pathology is evident. ET tube 3.7 cm above the arminda. /[place] DICTATED BY: RADHA BECERRA Jr., MD DATE: 01/23/25 101 ELECTRONICALLY SIGNED BY: RADHA BECERRA Jr., MD DATE: 01/23/25 1010 ] PLAN Daily Sedation vacation and SBT's CBC CMP Chest x-ray Panculture Flu and COVID Trend lactic acid Protocol CRP Blood cultures Broad-spectrum antibiotic Crystalloids 30 mL/kilogram and 1st 3 hours bolus Target map 65 Consider hydrocortisone 50 mg q.6 hours IV for vasopressor dependent NEURO: Minimize central acting medications as possible. Fall Precautions. Well lighted room through the day and minimize interruptions through the night t o prevent acute delirium. PULMONARY: Supplemental 02 as needed Titrate Fio2 to keep Spo2 > or = 90% DuoNebs and CPT as needed IS hourly while awake for pulmonary hygiene Out of bed to chair as tolerated VAP Bundle Vent/BIPAP Settings: Assist-control volume control tidal volume of 400 respiratory rate of 18 FiO2 of 50% and PEEP of five. Maintain plateau pressure less than 30 CARDIOVASCULAR: Follow hemodynamics. Titrate vasopressor to keep MAP >65 or systolic blood pressure >95mmHg Drips: Fentanyl Versed Levophed Vasopressin Protonix Sandostatin LINES: Right femoral central line PICC line pending GI & NUTRITION: Continue nutritional support Aspirations precautions Prokinetic agents and laxatives as needed KIDNEYS & ELECTROLYTES: Strict monitoring of intake and output Daily weights Avoid nephrotoxic agents Monitor electrolytes and replace as needed Goal urine output of 30mL/hr or 0.5mL/kg/hr Urine output: [ ] Fluid Balance: [ ] ENDOCRINE: Maintain blood glucose between 100-180 at all times. Insulin sliding scale for blood glucose management INFECTIOUS DISEASE: Trend temperature. Leonard-culture if febrile. Micro: [ ] Antibiotics: [ ] HEMATOLOGY & COAGULATION: Monitor H&H. Keep Hgb > 7 Transfuse 1 unit of PRBC for Hgb < 7 Transfuse 1 pack of platelets of platelets < 20, 000 Watch for any signs and symptoms of bleeding SKIN: Pressure ulcer prevention per facility protocol Rehab: PT/OT Prophylaxis: GI: Protonix 40 mg b.i.d. DVT: SCDs avoid anticoagulants due to hematemesis Code Status: Full Resuscitation Disposition: [ ICU Other: Total patient care time exceeds 35 minutes excluding all procedures. Case was discussed and seen with my supervising physician. The above plan was formulated and agreed upon. ATTESTATION BY PHYSICIAN I reviewed the documentation, medical decision making, and treatment plan as noted by the mid-level provider above. I agree with the findings and plan of care. Rivera Ramos MD, [facility] Jan 23, 2025 11:19
[2025-01-23] MEDS ORDERED: COMPOUND IV REFRIGERATED 1 EACH IVSOLN MISC PRN ×2 (11:30→14:30)
[2025-01-23 11:35] LABS: IMMATURE GRANULOCYTE ABSOLUTE 0.11 K/uL (0-1); NUCLEATED RED BLOOD CELLS 0.0 % (0.0-0.19); PLATELET COUNT (AUTO) 489 K/uL (130-400); RED BLOOD CELL COUNT(AUTO) 2.75 MIL/uL (4.00-5.50); RED CELL DISTRIBUTION WIDTH 17.6 % (11.0-15.5); WHITE BLOOD COUNT (AUTO) 10.3 K/uL (4.8-10.8)
[2025-01-23 11:55] LABS: ABG BASE EXCESS -4.1 mmol/L (-2.0-3.0); ABG HCO3 20.5 mmol/L (21.0-28.0); ABG OXYGEN SATURATION 98.2 % (94.0-98.0); ABG PCO2 35 mmHg (32-45); ABG PH 7.380 (7.350-7.450); CARBON MONOXIDE 0.1 % (0.5-1.5); DEVICE COMMENT LR RN JEMMA; PO2, ARTERIAL BG 135.5 mmHg (83.0-108.0); TEMPERATURE, CELSIUS BG 37.0 CELSIUS (35.5-37.0)
[2025-01-23 11:55] LABS: ASPARTATE AMINOTRANSFERASE 31.0 U/L (10-37); CREATINE KINASE, TOTAL 57.0 U/L (21-232); CREATININE 2.1 mg/dL (0.5-1.0); GLOMERULAR FILTR. RATE CALC 25.0 mL/min (>90); GLUCOSE,RANDOM 200.0 mg/dL (70-105); SODIUM SERUM 143.0 mmol/L (136-145); TOTAL PROTEIN, SERUM 5.1 g/dL (6.0-8.3); UREA NITROGEN, BLOOD 34.0 mg/dL (7-18)
--- NOTE | 2025-01-23 12:58 | CONS ---
NEPHROLOGY CONSULTATION NOTE Date/Time Patient Seen: Jan 23, 2025 1200 Reason for Consultation: Renal failure, hematemesis HISTORY OF PRESENT ILLNESS: This is a 70-year-old female with past medical history of diabetes mellitus type 2, hypertension, anemia, history of CVA, history of right below-knee amputation She presented to the hospital secondary to hematemesis. Patient is currently intubated and sedated. Most information was obtained from chart review. bedside nurse, and family due to patient's condition The patient was noted to have black colored vomit at home which started yesterday. She has a history of peptic ulcer disease. She also has a PEG tube placed around two weeks ago. Peg tube was placed in [facility]. She was noted to have elevated BUN/creatinine. We are consulted for renal failure Renal function remains elevated Electrolytes are stable. Imaging studies were noted She continues on antibiotics Pending culture results She was seen in the ICU, intubated and sedated Family at the bedside Condition is critical and guarded REVIEW OF SYSTEMS: Difficult to obtain given status of the patient who remains intubated mechanically ventilated PAST MEDICAL HISTORY: Diabetes mellitus type 2, hypertension, anemia, history of CVA PAST SURGICAL HISTORY: Right below-knee amputation Peg tube placement PAST SOCIAL HISTORY: Unable to obtain FAMILY HISTORY: Unable to obtain PHYSICAL EXAM: General: acutely ill, sedated, intubated, and mechanically ventilated HEENT: head is atraumatic, pupils equal and reactive, ET tube in place Neck: supple, no masses, no lymphadenopathy, no thyromegaly, no JVD Lungs: decreased breath sounds bilaterally, symmetrical chest movement Cardio: regular rate, S1 and S2 normal, no rub or gallop Abdomen: soft, non tender, no distension, no organomegaly Extremities: trace edema bilateral lower extremities, no cyanosis or clubbing Skin: no rashes or suspicious lesions Neuro: sedated MEDICATIONS: [ ] Current Medications Medications (Trade) Dose Ordered Sig/Arik Route PRN Reason Start Time Stop Time Status Last Admin Dose Admin Cefepime HCl (MAXipime 2 gm vial) 2 gm Q24H IVPB 01/23/25 12:00 02/02/25 11:59 01/23/25 12:20 2 GM Ceftriaxone Sodium (ROCEphine 1G INJ) 1 gm Q24H IVPB 01/22/25 12:00 01/22/25 16:25 DC 01/22/25 14:18 1 GM Dextrose (D50w) 50 ml AD PRN IV HYPOGLYCEMIA PROTOCOL 01/22/25 15:30 02/21/25 15:29 Fentanyl Citrate 100 ml @ 2.5 mls/hr PROTOCOL IV 01/22/25 12:00 01/22/25 11:55 DC Fentanyl Citrate 100 ml @ 2.5 mls/hr PROTOCOL IV 01/22/25 12:00 01/29/25 11:59 01/23/25 08:49 2.5 MLS/HR Glucagon (Glucagon 1mg Kit) 1 mg AD PRN IM HYPOGLYCEMIA PROTOCOL 01/22/25 15:30 02/21/25 15:29 Insulin Human Regular (humuLIN R 100 UNIT/ML 3ML) INSULIN SLIDING SCAL... ACHS SQ 01/22/25 21:00 02/21/25 20:59 01/23/25 12:20 2 UNIT Levetiracetam (kepPRA 500 MG TABLET) 500 mg BID PO 01/22/25 21:00 01/22/25 22:13 DC Levetiracetam 500 mg/Sodium Chloride 100 ml @ 400 mls/hr Q12H9 IV 01/22/25 22:00 02/21/25 21:59 01/23/25 09:52 400 MLS/HR Levothyroxine Sodium (SYNTHroid VIAL 100MCG) 100 mcg SYN IV 01/23/25 06:30 02/22/25 06:29 Magnesium Sulfate 50 ml @ 0 mls/hr PROTOCOL PRN IV Hypomagnesemia 01/22/25 15:30 02/21/25 15:29 01/23/25 09:56 0 MLS/HR Metronidazole/ Sodium Chloride 100 ml @ 100 mls/hr Q8H6 IVPB 01/22/25 22:00 02/01/25 21:59 01/23/25 06:00 100 MLS/HR Midazolam HCl 50 ml @ 0 mls/hr PROTOCOL IV 01/22/25 12:00 01/29/25 11:59 01/22/25 20:51 1 MLS/HR Norepinephrine 250 ml @ 0 mls/hr PROTOCOL IV 01/22/25 10:00 01/23/25 09:52 DC 01/22/25 14:24 60 MLS/HR Norepinephrine Bitartrate (Norepineph 16 Mg/250ml NS Premix) per protocol PROTOCOL IV 01/23/25 10:00 02/22/25 09:59 Octreotide Acetate 1250 mcg/ Sodium Chloride 250 ml @ 0 mls/hr PROTOCOL IV 01/22/25 12:30 01/22/25 12:17 DC Octreotide Acetate 1250 mcg/ Sodium Chloride 250 ml @ 0 mls/hr PROTOCOL IV 01/22/25 12:30 02/21/25 12:29 01/22/25 12:41 5 MLS/HR Pantoprazole Sodium 80 mg/ Sodium Chloride 100 ml @ 10 mls/hr Q10H IV 01/22/25 09:00 02/21/25 08:59 01/23/25 06:00 10 MLS/HR Pharmacy Profile Note (Pharmacy Communication) 1 each ONCE MISC 01/22/25 12:00 01/22/25 11:53 DC Pharmacy Profile Note (Pharmacy Communication) 1 each ONCE MISC 01/22/25 12:00 01/22/25 11:53 DC Phenylephrine HCl 100 mg/Sodium Chloride 250 ml @ 0 mls/hr AD PRN IV TITRATE 01/22/25 17:00 02/21/25 16:59 01/23/25 09:30 0 MLS/HR Potassium Chloride 100 ml @ 50 mls/hr AD PRN IV POTASSIUM PROTOCOL 01/22/25 15:30 02/21/25 15:29 Potassium Chloride 100 ml @ 100 mls/hr AD PRN IV POTASSIUM PROTOCOL 01/22/25 15:30 02/21/25 15:29 01/23/25 08:18 100 MLS/HR Potassium Chloride (K-Dur/Klor-Con 20meq) 20 meq AD PRN PO POTASSIUM PROTOCOL 01/22/25 15:30 02/21/25 15:29 Potassium Chloride (KCl 10% Elixir 20meq/15ml) 20 meq AD PRN PO POTASSIUM PROTOCOL 01/22/25 15:30 02/21/25 15:29 Propofol (DIPRivan 1000MG/ 100ML) 1,000 mg PROTOCOL PRN IV SEDATION 01/22/25 12:00 01/22/25 11:55 DC Sodium Chloride 1,000 ml @ 150 mls/hr Q6H40M IV 01/22/25 12:00 01/23/25 10:56 DC 01/23/25 02:45 150 MLS/HR Sucralfate (Carafate) 1 gm BID PO 01/23/25 21:00 01/23/25 11:41 DC Sucralfate (Carafate) 1 gm TID PO 01/23/25 14:00 02/22/25 20:59 Vancomycin HCl (Vancomycin 750mg) 750 mg Q24H IVPB 01/23/25 17:00 01/23/25 10:56 DC Vancomycin HCl (Vancomycin Protocol) 1 each AD IV 01/22/25 15:00 01/23/25 10:56 DC Vital Signs (last 8hr) Date Time Temp Pulse Resp B/P (MAP) Pulse Ox O2 Delivery O2 Flow Rate FiO2 01/23/25 11:55 85 154/98 (116) 100 01/23/25 11:45 83 151/102 (118) 100 01/23/25 11:40 83 151/102 (118) 100 01/23/25 11:39 97.5 01/23/25 11:30 83 30 01/23/25 11:30 83 154/105 (121) 100 01/23/25 11:30 98 Ventilator+ 30 01/23/25 11:25 83 154/105 (121) 100 01/23/25 11:15 83 135/83 (100) 100 01/23/25 11:00 82 100 01/23/25 10:45 82 114/67 (83) 98 01/23/25 10:30 82 7 100 01/23/25 10:15 81 11 117/62 (80) 100 01/23/25 10:00 78 7 110/61 (77) 100 01/23/25 09:45 83 110/62 (78) 100 01/23/25 09:45 81 30 01/23/25 09:30 78 8 114/68 (83) 100 01/23/25 09:30 111/69 01/23/25 09:15 81 14 107/68 (81) 100 01/23/25 09:00 80 12 111/69 (83) 100 01/23/25 08:45 86 14 108/70 (83) 100 01/23/25 08:30 78 113/62 (79) 100 01/23/25 08:15 71 106/60 (75) 100 01/23/25 08:14 Mask 10.0 01/23/25 08:14 68 16 102/62 100 Room Air 01/23/25 08:14 Mask 01/23/25 08:00 73 15 102/62 (75) 100 01/23/25 07:53 97.7 01/23/25 07:45 73 12 116/67 (83) 100 01/23/25 07:30 98 Ventilator+ 30 01/23/25 07:30 76 127/68 (87) 100 01/23/25 07:15 73 118/65 (82) 100 01/23/25 07:00 78 7 100/60 (73) 100 01/23/25 06:45 79 100 01/23/25 06:40 80 103/59 (74) 100 01/23/25 06:34 79 30 01/23/25 06:25 76 101/59 (73) 100 01/23/25 06:10 80 106/59 (75) 100 01/23/25 05:55 80 5 104/62 (76) 100 01/23/25 05:40 80 14 107/61 (76) 100 01/23/25 05:25 78 14 96/64 (75) 100 01/23/25 05:00 78 14 101/58 (72) 100 01/23/25 04:55 76 14 99/51 (67) 100 DIAGNOSTICS / RADIOLOGY: [address] [address] [place] [address] IMAGING REPORT Signed PATIENT: JUSTIN KLINE MR#: [id number] : 1955 SEX: F AGE: 70 LOCATION: [facility] ORDER 4 STATUS: ADM IN REPORT#: [id number] SERVICE REASON: intubated,congestion ORDERING PHYSICIAN: KARL RODRIGUEZ PROCEDURE: CXR1VW - CHEST 1VW EXAM: CR Chest, 1 View. CLINICAL HISTORY: intubated,congestion COMPARISON: 01/22 16:55 EDT CR - CHEST 1VW FINDINGS: ET tube 3.7 cm above the arminda. LUNGS: The lungs show no infiltrate or other acute finding. PLEURAL SPACES: No pleural effusion or pneumothorax. MEDIASTINUM: Cardiac size and mediastinal contours within normal limits. BONES: No acute osseous abnormality. IMPRESSION: No acute cardiopulmonary pathology is evident. ET tube 3.7 cm above the arminda. /[place] DICTATED BY: RADHA BECERRA Jr., MD DATE: 01/23/25 1010 ELECTRONICALLY SIGNED BY: RADHA BECERRA Jr., MD DATE: 01/23/25 1010 PATIENT: JUSTIN KLINE MR#: [id number] : 1955 SEX: F AGE: 70 LOCATION: [facility] ORDER 23 STATUS: ADM IN REPORT#: [id number] SERVICE 22 REASON: NG tube location ORDERING PHYSICIAN: KENA HAWLEY MD PROCEDURE: ABD 1VW - ABD 1VW ADDENDUM REPORT ADDENDUM: Results were shared by telephone at 10:10 pm on 01-22-25 and acknowledged by KENA Rivas. /[place] EXAM: CR Abdomen, 1 View. CLINICAL HISTORY: NG tube location COMPARISON: None provided. FINDINGS: BOWEL: The bowel gas pattern is within normal limits. PERITONEUM/SOFT TISSUES: No free air evident. No pathologic appearing calcification. BONES: No acute osseous abnormality. MISCELLANEOUS: No nasogastric tube identified. Gastrostomy tube left upper IMPRESSION: 1. No nasogastric tube identified. 2. Gastrostomy tube left upper quadrant /[place] DICTATED BY: ANA ALSTON MD DATE: 01/22/252210 ELECTRONICALLY SIGNED BY: DATE: EXAM: CR Abdomen, 1 View. CLINICAL HISTORY: NG tube location COMPARISON: None provided. FINDINGS: BOWEL: The bowel gas pattern is within normal limits. PERITONEUM/SOFT TISSUES: No free air evident. No pathologic appearing calcification. BONES: No acute osseous abnormality. MISCELLANEOUS: No nasogastric tube identified. Gastrostomy tube left upper IMPRESSION: 1. No nasogastric tube identified. 2. Gastrostomy tube left upper quadrant /[place] DICTATED BY: ANA ALSTON MD DATE: 01/22/252200 ELECTRONICALLY SIGNED BY: ANA ALSTON MD DATE: 01/22/252200 PATIENT: JUSTIN KLINE MR#: [id number] : 1955 SEX: F AGE: 70 LOCATION: [facility] ORDER 50 STATUS: ADM IN REPORT#: [id number] SERVICE 49 REASON: post intubation CXR ORDERING PHYSICIAN: KARL RODRIGUEZ PROCEDURE: CXR1VW - CHEST 1VW ADDENDUM REPORT ADDENDUM: Results were shared by telephone at 6:33 pm on 01-22-25 and acknowledged by patient's nurse JESSICA Mas. /[place] EXAM: CR Chest, 2 View. CLINICAL HISTORY: post intubation CXR COMPARISON: None provided. FINDINGS: LUNGS: Endotracheal tube appears midline above arminda PLEURAL SPACES: No pleural effusion or pneumothorax. MEDIASTINUM: The cardiomediastinal silhouette is within normal limits. BONES: No acute osseous abnormality. MISCELLANEOUS: Question nasogastric tube in the thoracic inlet. IMPRESSION: 1. Endotracheal tube appears midline above arminda 2. Question nasogastric tube in the thoracic inlet. /[place] DICTATED BY: ANA ALSTON MD DATE: 01/22/251835 ELECTRONICALLY SIGNED BY: DATE: EXAM: CR Chest, 2 View. CLINICAL HISTORY: post intubation CXR COMPARISON: None provided. FINDINGS: LUNGS: Endotracheal tube appears midline above arminda PLEURAL SPACES: No pleural effusion or pneumothorax. MEDIASTINUM: The cardiomediastinal silhouette is within normal limits. BONES: No acute osseous abnormality. MISCELLANEOUS: Question nasogastric tube in the thoracic inlet. IMPRESSION: 1. Endotracheal tube appears midline above arminda 2. Question nasogastric tube in the thoracic inlet. /[place] DICTATED BY: ANA ALSTON MD DATE: 01/22/251821 ELECTRONICALLY SIGNED BY: ANA ALSTON MD DATE: 01/22/251821 PATIENT: JUSTIN KLINE MR#: [id number] : 1955 SEX: F AGE: 70 LOCATION: [facility] ORDER 151 STATUS: ADM IN REPORT#: [id number] SERVICE 150 REASON: transaminitis rule out CBD dilation/obstruction cholangitis ORDERING PHYSICIAN: KARL RODRIGUEZ PROCEDURE: ABDRUQLTD - US ABDOMINAL RUQ\LTD EXAMINATION: ULTRASOUND OF THE ABDOMEN (LIMITED) WITH COLOR DOPPLER. CLINICAL HISTORY: Transaminitis. To rule out CBD obstruction. COMPARISON: CT abdomen and pelvis without contrast from the same day. TECHNIQUE: Real-time grayscale ultrasound images of the abdomen. In addition, color Doppler is medically necessary to perform in order to evaluate vascularity and blood flow. FINDINGS: Liver: Normal in caliber, the right hepatic lobe measures 15.4 cm in the craniocaudal dimension. There is increased echogenicity of the hepatic parenchyma. There is no focal hepatic abnormality or intrahepatic biliary ductal dilatation. There is normal spectral Doppler of the main portal vein. Gallbladder: Within normal limits with normal wall thickness (0.22 cm). No hyperemia or pericholecystic free fluid. There are few calculi, the largest measure 1.5 cm. Common bile duct is normal in caliber, measuring 0.28 cm. Pancreas: Obscured by overlying bowel gas. The right kidney is normal in caliber, the right kidney measures 8.2 x 3.3 x 2.9 cm in craniocaudal, AP, and transverse dimensions respectively. There is normal renal cortical thickness, and cortical echogenicity. There is no renal calculus or hydronephrosis. IMPRESSION: Hepatic steatosis. Cholelithiasis. No cholecystitis. /[place] DICTATED BY: GOVIND HAYES MD DATE: 01/23/25856 ELECTRONICALLY SIGNED BY: GOVIND HAYES MD DATE: 01/23/25856 PATIENT: JUSTIN KLINE MR#: [id number] : 1955 SEX: F AGE: 70 LOCATION: [facility] ORDER 26 STATUS: ADM IN REPORT#: [id number] SERVICE 25 REASON: PERICARDIAL EFFUSION. Please also assess EF ORDERING PHYSICIAN: KENA HAWLEY MD PROCEDURE: ECHO CMP - ECHO 2-D COMPLETE APPROVED REPORT EXAM: Two-dimensional and M-mode echocardiogram with Doppler and color Doppler. INDICATION ICD: Assess pericardial effusion and ejection fraction 2D Dimensions RVDd 3.0 cm LVEF(%) 49.3 (>50%) LVED Vol(simp.) 20.0 mL IVSd 1.9 (0.7-1.1cm) FS(%) 23 % LVES Vol(simp.) 9.0 mL LVDd 2.4 (3.8-5.6cm) LA (2D) 2.6 (1.6-4.0cm) LVEF(%, simp.) 55 % PWd 2.0 (0.7-1.1cm) Ao Root(2D) 2.7 (2.0-3.7cm) LA ESV INDEX (BP) 22.00 mL/m2 IVSs 2.0 cm LVOT diam 2.0 (1.8-2.4cm) LVDs 1.8 (2.5-4.0cm) IVC diam 1.2 cm PWs 1.7 cm Deformation Strain Apical 4 -7.1 % Apical 2 -6.9 % Apical 3 -10.1 % Global Strain -8.0 % M-Mode Dimensions EPSS 0.8 cm LA (MM) 2.3 (1.6-4.0cm) Ao Root(MM) 2.9 (2.0-3.7cm) Aortic Valve AoV Vmax 2.1 m/s Ao Peak GR 17.0 mmHg LVOT Vmax 2.1 m/s AoV VTI 0.2 m Ao Mean GR 8.4 mmHg LVOT VTI 0.22 m YASMEEN (VMAX) 3.02 cm2 YASMEEN (VTI) 3.6 cm2 Mitral Valve MV E Vmax 51.6 cm/s DECEL Time 82 ms MV A Vmax 69.0 cm/s P 1/2 T 19 ms E/A ratio 0.7 MVA (PHT) 11.9 cm2 TDI E/E' Medial 6.8 E/E' Lateral 9.3 Medial E' Peak V 7.57 cm/s Lateral E' Peak V 5.54 cm/s Pulmonary Valve PV Vmax 1.3 m/s PV VTI 0.14 m PV Mean GR 3.5 mmHg PV Peak GR 6.5 mmHg Tricuspid Valve TR Vmax 1.5 m/s RAP (EST) 3 mmHg RVSP 12.4 mmHg TR Peak GR 9.4 mmHg Left Ventricle Left ventricular cavity is small. GLS -8.0% Severe concentric left ventricular hypertrophy. LVEF is 50-55%. The left ventricular diastolic function is normal. Right Ventricle The right ventricle is normal size. The right ventricular systolic function is normal. Atria The left atrium size is normal. The right atrium is small in size. Aortic Valve The aortic valve is normal in structure. No aortic regurgitation is present. There is no aortic valvular stenosis. Mitral Valve The mitral valve is normal in structure. There is trace of mitral valve regurgitation noted. There is no mitral valve stenosis. Tricuspid Valve The tricuspid valve is normal in structure. There is trace of tricuspid valve regurgitation noted. Pulmonic Valve Pulmonic valve is not well visualized. There is no pulmonic valvular regurgit ation. Great Vessels The aortic root is normal in size. The IVC is normal in size and collapses >50% with inspiration. Pericardium There is no pericardial effusion. Other Information Quality : Technically difficult study due to body habitus, pt intubated Rhythm : Tachycardia Conclusion LVEF is 50-55%. Severe concentric left ventricular hypertrophy. The left ventricular diastolic function is normal. There is no pericardial effusion. DICTATED BY: GIULIANA AWAN DO DATE: 01/22/25 1318 ELECTRONICALLY SIGNED BY: GIULIANA AWAN DO DATE: 01/23/25 0743 PATIENT: JUSTIN KLINE MR#: [id number] : 1955 SEX: F AGE: 70 [facility] 1152 STATUS: ADM IN REPORT#: [id number] SERVICE 1151 REASON: S/P INTUBATION. ET tube position ORDERING PHYSICIAN: KENA HAWLEY MD PROCEDURE: CXR1VW - CHEST 1VW EXAM: CR Chest, 2 View. CLINICAL HISTORY: S/P INTUBATION. ET tube position COMPARISON: Radiograph from January 22 at 8:53 AM FINDINGS: Endotracheal tube terminates 1.4 cm above the arminda. LUNGS: There is no mass, infiltrate, or acute pulmonary abnormality. PLEURAL SPACES: No pleural effusion or pneumothorax. MEDIASTINUM: Cardiac size and mediastinal contours within normal limits. Atherosclerosis of the thoracic aorta. BONES: No acute osseous abnormality. IMPRESSION: 1. Endotracheal tube positioned 1.4 cm above the arminda. 2. No acute cardiopulmonary abnormality. /[place] DICTATED BY: RADHA BECERRA Jr., MD DATE: 01/22/251309 ELECTRONICALLY SIGNED BY: RADHA BECERRA Jr., MD DATE: 01/22/251309 PATIENT: JUSTIN KLINE MR#: [id number] : 1955 SEX: F AGE: 70 LOCATION: [facility] ORDER 0949 STATUS: REG ER REPORT#: [id number] SERVICE 0948 REASON: gi bleed ORDERING PHYSICIAN: JULISA PETERSON MD PROCEDURE: ABD PEL WO - CT ABDOMEN/PELVIS W/O CONTRAST CT ABDOMEN/PELVIS W/O CONTRAST REASON: gi bleed COMPARISON: None. FINDINGS: Lung bases are clear. There is a small left-sided pleural effusion. There is coronary calcifications suggesting coronary artery disease. There is suggestion of small pericardial effusion. There is a moderate size hiatal hernia. . There are no focal liver lesions. There are normal-appearing kidneys.. Spleen and pancreas appear unremarkable. The gallbladder appears normal as well. There is a feeding gastrostomy tube in place. Bowel loops appear unremarkable. This includes normal appearance of the appendix . There is fecal stasis in the rectal vault. Abutting the right lobe of the bowel in the right lower quadrant and abutting the right psoas muscle there is a a cystic structure measuring 5.9 x 3.9 cm. There is no evidence of free fluid or intraperitoneal air. There are no focal fluid collections. The retroperitoneum appear normal as do pelvic soft tissue structures. Aorta and iliac vessels demonstrate diffuse atherosclerotic changes. The anterior abdominal wall is intact. Osseous structures appear unremarkable. The uterus is surgically absent. IMPRESSION: 1. No acute process seen in CT of abdomen and pelvis without intravenous contrast 2. In the right adnexal region there is a cystic structure measuring 5.9 x 3.9 cm 3. Fecal stasis impaction seen in the rectal vault CT was performed with one or more following dose reduction techniques: automated exposure control, adjustment of the mA and kv according to patient's size, or use of a iterative reconstruction technique. DICTATED BY: RENA MADDOX MD DATE: 01/22/25 1044 ELECTRONICALLY SIGNED BY: RENA MADDOX MD DATE: 01/22/25 1051 PATIENT: JUSTIN KLINE MR#: [id number] : 1955 SEX: F AGE: 70 LOCATION: [facility] ORDER 8 STATUS: [facility] REPORT#: [id number] SERVICE REASON: gi bleed ORDERING PHYSICIAN: JULISA PETERSON MD PROCEDURE: ABD PEL WO - CT ABDOMEN/PELVIS W/O CONTRAST CT ABDOMEN/PELVIS W/O CONTRAST REASON: gi bleed COMPARISON: None. FINDINGS: Lung bases are clear. There is a small left-sided pleural effusion. There is coronary calcifications suggesting coronary artery disease. There is suggestion of small pericardial effusion. There is a moderate size hiatal hernia. . There are no focal liver lesions. There are normal-appearing kidneys.. Spleen and pancreas appear unremarkable. The gallbladder appears normal as well. There is a feeding gastrostomy tube in place. Bowel loops appear unremarkable. This includes normal appearance of the appendix . There is fecal stasis in the rectal vault. Abutting the right lobe of the bowel in the right lower quadrant and abutting the right psoas muscle there is a a cystic structure measuring 5.9 x 3.9 cm. There is no evidence of free fluid or intraperitoneal air. There are no focal fluid collections. The retroperitoneum appear normal as do pelvic soft tissue structures. Aorta and iliac vessels demonstrate diffuse atherosclerotic changes. The anterior abdominal wall is intact. Osseous structures appear unremarkable. The uterus is surgically absent. IMPRESSION: 1. No acute process seen in CT of abdomen and pelvis without intravenous contrast 2. In the right adnexal region there is a cystic structure measuring 5.9 x 3.9 cm 3. Fecal stasis impaction seen in the rectal vault CT was performed with one or more following dose reduction techniques: automated exposure control, adjustment of the mA and kv according to patient's size, or use of a iterative reconstruction technique. DICTATED BY: RENA MADDOX MD DATE: 01/22/25 1044 ELECTRONICALLY SIGNED BY: RENA MADDOX MD DATE: 01/22/25 105 PATIENT: JUSTIN KLINE MR#: [id number] : 1955 SEX: F AGE: 70 LOCATION: [facility] ORDER 9 STATUS: [facility] REPORT#: [id number] SERVICE 7 REASON: cp ORDERING PHYSICIAN: JULISA PETERSON MD PROCEDURE: CXR1VW - CHEST 1VW EXAM: Chest radiograph 1 view HISTORY: Chest pain COMPARISON: None FINDINGS: No pulmonary consolidations. No pleural effusion or pneumothorax. Enlarged cardiac silhouette. Tortuous calcified aorta. No overt congestion. Degenerative changes. IMPRESSION: No acute cardiopulmonary disease. /[place] DICTATED BY: DESTINY CASTELLANOS MD DATE: 01/22/25 105 ELECTRONICALLY SIGNED BY: DESTINY CASTELLANOS MD DATE: 01/22/25 105 LABORATORY: [ ] Hematology Labs: Test 01/23/25 11:27 Range/Units White Blood Count 10.3 # 4.8-10.8 K/uL Red Blood Count 2.75 L 4.00-5.50 MIL/uL Hemoglobin 8.2 L 12.0-16.0 g/dL Hematocrit 24.1 L 36-48 % Mean Corpuscular Volume 87.6 79-99 fL Mean Corpuscular Hemoglobin 29.8 27.0-33.0 pg Mean Corpuscular Hemoglobin Concent 34.0 32.0-36.0 g/dL Red Cell Distribution Width 17.6 H 11.0-15.5 % Platelet Count 489 H 130-400 K/uL Mean Platelet Volume 10.2 7.5-10.5 fL Immature Granulocyte % (Auto) 1.1 H 0-1 % Neutrophils (%) (Auto) 60.9 40.0-77.0 % Lymphocytes (%) (Auto) 27.3 21.0-51.0 % Monocytes (%) (Auto) 7.8 3.0-13.0 % Eosinophils (%) (Auto) 0.8 0.0-8.0 % Basophils (%) (Auto) 2.1 0.0-5.0 % Neutrophils # (Auto) 6.3 1.8-7.7 K/uL Lymphocytes # (Auto) 2.8 1.0-4.8 K/uL Monocytes # (Auto) 0.8 0.1-1.0 K/uL Eosinophils # (Auto) 0.08 0.00-0.70 K/uL Basophils # (Auto) 0.22 H 0.00-0.20 K/uL Absolute Immature Granulocyte (auto 0.11 0-1 K/uL Nucleated Red Blood Cells 0.0 0.0-0.19 % Chemistry Labs: Test 01/23/25 12:09 01/23/25 11:27 01/23/25 05:50 01/22/25 16:00 Range/Units Whole Blood Glucose 184 H 70-110 MG/DL Sodium Level 143 136-145 mmol/L Potassium Level 3.7 3.5-5.1 mmol/L Chloride Level 111 101-111 mmol/L Carbon Dioxide Level 25 21-32 mmol/L Blood Urea Nitrogen 34 H 7-18 mg/dL Creatinine 2.1 H 0.5-1.0 mg/dL Glomerular Filtration Rate Calc 25 >90 mL/min Random Glucose 200 H 70-105 mg/dL Lactic Acid Level 2.9 H 0.8-2.5 mmol/L Total Calcium 6.8 L 8.5-10.1 mg/dL Total Bilirubin 0.3 0.2-1.0 mg/dL Aspartate Amino Transf (AST/SGOT) 31 10-37 U/L Alanine Aminotransferase (ALT/SGPT) 16 12-78 U/L Alkaline Phosphatase 141 H 50-136 U/L Total Creatine Kinase 57 21-232 U/L Troponin I High Sensitivity 574.6 *H 4-50 ng/L Total Protein 5.1 L 6.0-8.3 g/dL Albumin 1.0 L 3.5-5.0 g/dL Magnesium Level 1.60 L 1.80-2.40 mg/dL Thyroid Stimulating Hormone (TSH) 11.67 #H 0.36-3.74 uIU/mL Free Thyroxine (T4) Direct 0.67 L 0.76-1.46 ng/dL Free Triiodothyronine (T3) pg/mL 0.76 L 2.18-3.98 pg/mL C-Reactive Protein, Quantitative 56.50 H 0.5-3.0 mg/L Test 01/22/25 12:44 01/22/25 12:11 01/22/25 08:53 Range/Units Ammonia 13 11-32 umol/L Hemoglobin A1c 6.4 H 4.0-6.0 % Estimated Average Glucose (eAG) 137 H 70-126 mg/dL Procalcitonin 2.13 H 0.05-0.5 ng/mL Lipase 16 16-77 U/L ASSESSMENT: Acute renal failure Anemia Septic shock requiring pressors, POA Acute metabolic encephalopathy POA Acute Hypoxic rep failure requiring intubation for airway protection POA Acute complicated cystitis POA Acute on chronic anemia 2/ GI Bleed (Hematemesis) POA Hyperglycemia in the presence of type 2 diabetes mellitus, POA right adnexal region there is a cystic structure measuring 5.9 x 3.9 cm Thrombocytosis Hypokalemia Electrolyte derangement (hypokalemia, hypocalcemia) severe Hypoalbuminemia Malnutrition Transaminitis Elevated TSH suspected myxedema Uncontrolled type 2 diabetes mellitus Essential hypertension Anemia Prior history of CVA Right [id number] amputation G-tube in situ Bed ridden Recent hospitalization [facility] for hematemesis PLAN: Labs, diagnostic, radiologic exams reviewed and interpreted by myself and supervising physician. We have reviewed external records in detail Discontinue Vancomycin due to worsening renal function, use alternative antibiotic. Obtain UA and complete renal ultrasound Start thiamine daily Require close monitoring of renal function and electrolytes Order CBC, CMP, complete iron panel, ferritin and electrolytes in am IV iron as needed Continue with antibiotics Renal diabetic diet BiPAP as necessary, for respiratory distress IV pressors as needed Monitor blood pressure adjust medication doses as needed Avoid hypotensive episodes May use Dilaudid 0.5 mg IV every 6 hours as needed for severe pain Monitor blood sugars Strict intake, output, and daily weight should be monitored Please renally adjust medications Avoid nephrotoxic and nonsteroidal drugs Avoid contrast if possible Will continue to monitor renal function, anemia, electrolytes Treatment plan discussed with patient Questions were answered We have discussed with the other team physicians in detail about the care plan We will continue to monitor the patient closely Thank you for allowing us to participate in the care of this patient Total critical care time spent with patient, nursing staff, critical care team over 35 minutes ATTESTATION BY PHYSICIAN I have seen and examined the patient. I reviewed the documentation, medical decision making, and treatment plan as noted by the mid-level provider above. I agree with the findings and plan of care. CHRISTELLE SIMENTAL MD, ELIZABETH FNP Jan 23, 2025 12:58 CHRISTELLE SIMENTAL MD Jan 23, 2025 20:56
[2025-01-23] MEDS ORDERED: PHARMACY COMMUNICATION MISC SCH (13:00)
[2025-01-23] MEDS: SUCRALFATE 1 GM TABLET PO SCH (13:53)
[2025-01-23] MEDS: [UNRECOGNIZED DRUG - OTHER] IV SCH (14:05)
[2025-01-23] MEDS: THIAMINE HCL IV SCH (14:05)
--- NOTE | 2025-01-23 14:20 | NUR ---
pATIENT WASA WAKING UP, MOVING BUT NOT FOLLOWING COMMANDS. pLACED ON cpap AND WILL CONTINUE TO MONITOR.
--- NOTE | 2025-01-23 15:25 | PN ---
[facility] PROGRESS NOTE Date of Service: Jan 23, 2025 Time of Service: 14:48 SUBJECTIVE: 70-year-old female with past medical history of diabetes mellitus type 2, hypertension, anemia, history of CVA, history of right below-knee amputation who presented to the hospital secondary to hematemesis. Patient is currently intubated and sedated. The patient's history is mostly obtained from patient's who is present at bedside and from ED provider. The patient was noted to have black colored vomit at home which started yesterday. She has a history of peptic ulcer disease. She also has a PEG tube placed around two weeks ago. Peg tube was placed in [facility]. Per patient is able to swallow better now. denied any fever, chills, shortness for breath, chest pain. History is fairly limited at this time as patient is not able to participate in conversation. Labs were Notable for white count of 9.1, hemoglobin was 9.1, MCV was 86.7, platelet count was 456 K, sodium was 138, potassium was 3.1, bicarb was , creatinine was 1.7, glucose was 234, alk-phos was 153, total protein was 5.0, albumin was 0.9, lipase was negative normal Underwent a CT abdomen pelvis which showed no acute process in the CT abdomen without IV contrast. Patient was noted to have cystic structure in the right adrenal region measuring 5.9 x 3.9 cm. The patient also had fecal impaction noted. In the ED patient had episode of hematemesis and she was intubated for airway protection by ED provider. 01/23/2025: The patient is examined at the bedside. She was sedated and not responsive during my visit. GI performed EGD in the morning and they have observed no active bleeding. Nurse notified an unstageable wound on sacrum for which Wound consult is placed today. We will be manage as per critical Care recommendations. REVIEW OF SYSTEMS Unable to obtain as patient is sedated PHYSICAL EXAM GENERAL APPEARANCE: He is currently intubated and sedated NEUROLOGICAL: Cranial nerves II-XII grossly intact. Motor is 5/5 in bilateral upper and lower extremities proximal to distal. No sensory deficits. HEENT: Face is symmetric. Pupils are equal and reactive. Extraocular movements are intact. NECK: Supple. No JVD. No thyromegaly. No submental, submandibular, pre- /postauricular, occipital or supraclavicular lymphadenopathy. CHEST: Normal chest expansion. No Telemetry. LUNGS: Absence of any rales, rhonchi or any wheezing. CARDIOVASCULAR: Regular. S1 and S2 normal. No appreciable rubs, murmurs or gallops. ABDOMEN: Soft, nontender, and nondistended. There is no rebound, voluntary guarding, or rigidity. Patient has a PEG tube in place : Deferred. No Kamara. EXTREMITIES: Below-knee amputation of the right lower extremity SKIN: No skin breakdown. Vital Signs (last 8hr) Date Time Temp Pulse Resp B/P (MAP) Pulse Ox O2 Delivery O2 Flow Rate FiO2 01/23/25 14:17 88 30 01/23/25 11:55 85 154/98 (116) 100 01/23/25 11:45 83 151/102 (118) 100 01/23/25 11:40 83 151/102 (118) 100 01/23/25 11:39 97.5 01/23/25 11:30 83 30 01/23/25 11:30 83 154/105 (121) 100 01/23/25 11:30 98 Ventilator+ 30 01/23/25 11:25 83 154/105 (121) 100 01/23/25 11:15 83 135/83 (100) 100 01/23/25 11:00 82 100 01/23/25 10:45 82 114/67 (83) 98 01/23/25 10:30 82 7 100 01/23/25 10:15 81 11 117/62 (80) 100 01/23/25 10:00 78 7 110/61 (77) 100 01/23/25 09:45 83 110/62 (78) 100 01/23/25 09:45 81 30 01/23/25 09:30 78 8 114/68 (83) 100 01/23/25 09:30 111/69 01/23/25 09:15 81 14 107/68 (81) 100 01/23/25 09:00 80 12 111/69 (83) 100 01/23/25 08:45 86 14 108/70 (83) 100 01/23/25 08:30 78 113/62 (79) 100 01/23/25 08:15 71 106/60 (75) 100 01/23/25 08:14 Mask 10.0 01/23/25 08:14 68 16 102/62 100 Room Air 01/23/25 08:14 Mask 01/23/25 08:00 73 15 102/62 (75) 100 01/23/25 07:53 97.7 01/23/25 07:45 73 12 116/67 (83) 100 01/23/25 07:30 98 Ventilator+ 30 01/23/25 07:30 76 127/68 (87) 100 01/23/25 07:15 73 118/65 (82) 100 01/23/25 07:00 78 7 100/60 (73) 100 LABS: Laboratory: Test 01/23/25 12:09 01/23/25 11:53 01/23/25 11:27 01/23/25 05:50 Range/Units Whole Blood Glucose 184 H 70-110 MG/DL Blood Gas Specimen Type Arterial Arterial Blood pH 7.380 7.350-7.450 Arterial Blood Partial Pressure CO2 35 32-45 mmHg Arterial Blood Partial Pressure O2 135.5 H 83.0-108.0 mmHg Arterial Blood HCO3 20.5 L 21.0-28.0 mmol/L Arterial Blood Oxygen Saturation 98.2 H 94.0-98.0 % Arterial Blood Base Excess -4.1 L -2.0-3.0 mmol/L Hemoglobin (Blood Gas) 9.0 L 12.0-16.0 g/dL Sodium (Blood Gas) 139 136-145 MMOL/L Bedside Potassium (Blood Gas) 3.6 3.4-4.5 MMOL/L Bedside Chloride (Blood Gas) 111 H 98-107 MMOL/L Bedside Glucose (Blood Gas) 193 H 65-95 MG/DL Bedside Ionized Calcium (Blood Gas) 1.06 L 1.15-1.33 MMOL/L Bedside Lactic Acid (Blood Gas) 2.14 H 0.36-0.75 MMOL/L Blood Gas Temperature 37.0 35.5-37.0 CELSIUS Blood Gas Respiration Rate 14.0 min. FiO2 30.0 % Blood Gas Tidal Volume 400 ml Blood Gas PEEP 5 cm H2O Blood Gas Specimen Comment LR RN JOJO White Blood Count 10.3 # 4.8-10.8 K/uL Red Blood Count 2.75 L 4.00-5.50 MIL/uL Hemoglobin 8.2 L 12.0-16.0 g/dL Hematocrit 24.1 L 36-48 % Mean Corpuscular Volume 87.6 79-99 fL Mean Corpuscular Hemoglobin 29.8 27.0-33.0 pg Mean Corpuscular Hemoglobin Concent 34.0 32.0-36.0 g/dL Red Cell Distribution Width 17.6 H 11.0-15.5 % Platelet Count 489 H 130-400 K/uL Mean Platelet Volume 10.2 7.5-10.5 fL Immature Granulocyte % (Auto) 1.1 H 0-1 % Neutrophils (%) (Auto) 60.9 40.0-77.0 % Lymphocytes (%) (Auto) 27.3 21.0-51.0 % Monocytes (%) (Auto) 7.8 3.0-13.0 % Eosinophils (%) (Auto) 0.8 0.0-8.0 % Basophils (%) (Auto) 2.1 0.0-5.0 % Neutrophils # (Auto) 6.3 1.8-7.7 K/uL Lymphocytes # (Auto) 2.8 1.0-4.8 K/uL Monocytes # (Auto) 0.8 0.1-1.0 K/uL Eosinophils # (Auto) 0.08 0.00-0.70 K/uL Basophils # (Auto) 0.22 H 0.00-0.20 K/uL Absolute Immature Granulocyte (auto 0.11 0-1 K/uL Nucleated Red Blood Cells 0.0 0.0-0.19 % Sodium Level 143 136-145 mmol/L Potassium Level 3.7 3.5-5.1 mmol/L Chloride Level 111 101-111 mmol/L Carbon Dioxide Level 25 21-32 mmol/L Blood Urea Nitrogen 34 H 7-18 mg/dL Creatinine 2.1 H 0.5-1.0 mg/dL Glomerular Filtration Rate Calc 25 >90 mL/min Random Glucose 200 H 70-105 mg/dL Lactic Acid Level 2.9 H 0.8-2.5 mmol/L Total Calcium 6.8 L 8.5-10.1 mg/dL Total Bilirubin 0.3 0.2-1.0 mg/dL Aspartate Amino Transf (AST/SGOT) 31 10-37 U/L Alanine Aminotransferase (ALT/SGPT) 16 12-78 U/L Alkaline Phosphatase 141 H 50-136 U/L Total Creatine Kinase 57 21-232 U/L Troponin I High Sensitivity 574.6 *H 4-50 ng/L Total Protein 5.1 L 6.0-8.3 g/dL Albumin 1.0 L 3.5-5.0 g/dL Procalcitonin 3.72 H 0.05-0.5 ng/mL Magnesium Level 1.60 L 1.80-2.40 mg/dL Thyroid Stimulating Hormone (TSH) 11.67 #H 0.36-3.74 uIU/mL Free Thyroxine (T4) Direct 0.67 L 0.76-1.46 ng/dL Free Triiodothyronine (T3) pg/mL 0.76 L 2.18-3.98 pg/mL Test 01/22/25 16:48 01/22/25 16:00 01/22/25 12:44 01/22/25 12:11 Range/Units Blood Gas Vent Mode AC ROOM AIR C-Reactive Protein, Quantitative 56.50 H 0.5-3.0 mg/L Ammonia 13 11-32 umol/L Hemoglobin A1c 6.4 H 4.0-6.0 % Estimated Average Glucose (eAG) 137 H 70-126 mg/dL Test 01/22/25 12:01 01/22/25 08:53 Range/Units Urine Color LIGHT-YELLOW YELLOW Urine Appearance CLOUDY H CLEAR Urine pH 6.5 5.0-8.0 Urine Specific [place] 1.017 1.001-1.031 Urine Protein 200 H NEGATIVE mg/dL Urine Glucose (UA) 30 H NEGATIVE mg/dL Urine Ketones NEGATIVE NEGATIVE mg/dL Urine Occult Blood MODERATE H NEGATIVE Urine Nitrate NEGATIVE NEGATIVE Urine Bilirubin NEGATIVE NEGATIVE mg/dL Urine Urobilinogen 0.2 0.2-1.0 mg/dL Urine Leukocyte Esterase 500 H NEGATIVE Sunitha/uL Urine RBC 51-100 H 0-1 /HPF Urine WBC TNTC H 0-1 /HPF Urine Squamous Epithelial Cells MOD 0-2 /HPF Urine Bacteria FEW None Seen /HPF Urine Yeast MANY None Seen /HPF Urine Random Creatinine 70.40 30-135 mg/dL Urine Random Total Protein 410.9 H 0-11.9 mg/dL Urine Random Sodium 53 40-220 mmol/l Lipase 16 16-77 U/L Current Medications Medications (Trade) Dose Ordered Sig/Arik Route PRN Reason Start Time Stop Time Status Last Admin Dose Admin Cefepime HCl (MAXipime 2 gm vial) 2 gm Q24H IVPB 01/23/25 12:00 02/02/25 11:59 01/23/25 12:20 2 GM Ceftriaxone Sodium (ROCEphine 1G INJ) 1 gm Q24H IVPB 01/22/25 12:00 01/22/25 16:25 DC 01/22/25 14:18 1 GM Dextrose (D50w) 50 ml AD PRN IV HYPOGLYCEMIA PROTOCOL 01/22/25 15:30 02/21/25 15:29 Fentanyl Citrate 100 ml @ 2.5 mls/hr PROTOCOL IV 01/22/25 12:00 01/22/25 11:55 DC Fentanyl Citrate 100 ml @ 2.5 mls/hr PROTOCOL IV 01/22/25 12:00 01/29/25 11:59 01/23/25 08:49 2.5 MLS/HR Glucagon (Glucagon 1mg Kit) 1 mg AD PRN IM HYPOGLYCEMIA PROTOCOL 01/22/25 15:30 02/21/25 15:29 Insulin Human Regular (humuLIN R 100 UNIT/ML 3ML) INSULIN SLIDING SCAL... ACHS SQ 01/22/25 21:00 02/21/25 20:59 01/23/25 12:20 2 UNIT Levetiracetam (kepPRA 500 MG TABLET) 500 mg BID PO 01/22/25 21:00 01/22/25 22:13 DC Levetiracetam 500 mg/Sodium Chloride 100 ml @ 400 mls/hr Q12H9 IV 01/22/25 22:00 02/21/25 21:59 01/23/25 09:52 400 MLS/HR Levothyroxine Sodium (SYNTHroid VIAL 100MCG) 100 mcg SYN IV 01/23/25 06:30 02/22/25 06:29 Magnesium Sulfate 50 ml @ 0 mls/hr PROTOCOL PRN IV Hypomagnesemia 01/22/25 15:30 02/21/25 15:29 01/23/25 09:56 0 MLS/HR Metronidazole/ Sodium Chloride 100 ml @ 100 mls/hr Q8H6 IVPB 01/22/25 22:00 02/01/25 21:59 01/23/25 13:52 100 MLS/HR Midazolam HCl 50 ml @ 0 mls/hr PROTOCOL IV 01/22/25 12:00 01/29/25 11:59 01/22/25 20:51 1 MLS/HR Norepinephrine 250 ml @ 0 mls/hr PROTOCOL IV 01/22/25 10:00 01/23/25 09:52 DC 01/22/25 14:24 60 MLS/HR Norepinephrine Bitartrate (Norepineph 16 Mg/250ml NS Premix) per protocol PROTOCOL IV 01/23/25 10:00 02/22/25 09:59 Octreotide Acetate 1250 mcg/ Sodium Chloride 250 ml @ 0 mls/hr PROTOCOL IV 01/22/25 12:30 01/22/25 12:17 DC Octreotide Acetate 1250 mcg/ Sodium Chloride 250 ml @ 0 mls/hr PROTOCOL IV 01/22/25 12:30 02/21/25 12:29 01/22/25 12:41 5 MLS/HR Pantoprazole Sodium 80 mg/ Sodium Chloride 100 ml @ 10 mls/hr Q10H IV 01/22/25 09:00 02/21/25 08:59 01/23/25 06:00 10 MLS/HR Pharmacy Profile Note (Pharmacy Communication) 1 each ONCE MISC 01/22/25 12:00 01/22/25 11:53 DC Pharmacy Profile Note (Pharmacy Communication) 1 each ONCE MISC 01/22/25 12:00 01/22/25 11:53 DC Pharmacy Profile Note (Pharmacy Communication) 1 each ONCE MISC 01/23/25 13:00 01/23/25 13:09 DC Phenylephrine HCl 100 mg/Sodium Chloride 250 ml @ 0 mls/hr AD PRN IV TITRATE 01/22/25 17:00 02/21/25 16:59 01/23/25 09:30 0 MLS/HR Potassium Chloride 100 ml @ 50 mls/hr AD PRN IV POTASSIUM PROTOCOL 01/22/25 15:30 02/21/25 15:29 Potassium Chloride 100 ml @ 100 mls/hr AD PRN IV POTASSIUM PROTOCOL 01/22/25 15:30 02/21/25 15:29 01/23/25 08:18 100 MLS/HR Potassium Chloride (K-Dur/Klor-Con 20meq) 20 meq AD PRN PO POTASSIUM PROTOCOL 01/22/25 15:30 02/21/25 15:29 Potassium Chloride (KCl 10% Elixir 20meq/15ml) 20 meq AD PRN PO POTASSIUM PROTOCOL 01/22/25 15:30 02/21/25 15:29 Propofol (DIPRivan 1000MG/ 100ML) 1,000 mg PROTOCOL PRN IV SEDATION 01/22/25 12:00 01/22/25 11:55 DC Sodium Chloride 1,000 ml @ 150 mls/hr Q6H40M IV 01/22/25 12:00 01/23/25 10:56 DC 01/23/25 02:45 150 MLS/HR Sucralfate (Carafate) 1 gm BID PO 01/23/25 21:00 01/23/25 11:41 DC Sucralfate (Carafate) 1 gm TID PO 01/23/25 14:00 02/22/25 20:59 01/23/25 13:53 1 GM Thiamine HCl 100 mg/Sodium Chloride 50 ml @ 100 mls/hr Q24H IV 01/23/25 14:00 01/25/25 14:29 01/23/25 14:05 100 MLS/HR Vancomycin HCl (Vancomycin 750mg) 750 mg Q24H IVPB 01/23/25 17:00 01/23/25 10:56 DC Vancomycin HCl (Vancomycin Protocol) 1 each AD IV 01/22/25 15:00 01/23/25 10:56 DC DIAGNOSTICS / RADIOLOGY: [ ] ASSESSMENT: Hematemesis POA Hemorrhagic shock Acute hypoxic respiratory failure status post intubation for airway protection Peg tube placement Peptic ulcer disease Unstageable wound on sacrum Fecal impaction Obesity BMI 36.6 fecal impaction Knee injury versus underlying CKD Diabetes mellitus type 2 with associated hyperglycemia Severe hypoalbuminemia Hypertension Debility Small pericardial Effusion Left-sided pleural effusion PLAN: Hematemesis, peptic ulcer disease, POA - patient to be admitted to ICU -in reference to hematemesis. We will check H&H q.4 hours. Patient to have type and screen. If hemoglobin is less than seven. Patient will be receiving blood transfusion. - The patient will continue on Protonix drip and octreotide drip. - EGD done by Gastroenterology and have reported no active bleeding and clots in esophagus. Acute hypoxic respiratory failure status post intubation for airway protection - critical care is on board and we will follow critical care recommendations regarding ventilator and sedation protocol - currently on ACVC, TV 400, RR 18, Fio2 50%, PEEP 5. Hemorrhagic shock - patient currently on phenylephrine drip - weaned off Levophed - continuing midazolam, fentanyl currently. - we will follow critical Care recommendations in managing hemorrhagic shock Unstageable wound on sacrum - we will request wound care Diabetes mellitus type 2 with associated hyperglycemia, Severe hypoalbuminemia, Hypertension, Debility, Small pericardial Effusion, Left-sided pleural effusion - echo showed no pericardial effusion, LVEF of 50-55% - continue insulin sliding scale - continue thiamine supplementation - Continue patient on cefepime, metronidazole for broad coverage - monitor vitals Q8 - monitor a.m. labs - nephrology was consulted and they have recommended to discontinue vancomycin, obtain urine analysis and complete renal ultrasound. GI prophylaxis: Pantoprazole ATTESTATION BY PHYSICIAN I have seen and examined the patient. I reviewed the documentation, medical decision making, and treatment plan as noted by the resident provider above. I agree with the findings and plan of care. Mason Hauser MD, BHAVANI MD Jan 23, 2025 15:25
[2025-01-23] MEDS ORDERED: VANCOMYCIN 750MG VIAL IVPB SCH (17:00)
--- NOTE | 2025-01-23 17:31 | EKG ---
[facility] Test Date: 2025-01-23 Test Time: 17:32:21 Pat Name: JUSTIN KLINE Department: [facility] Room: 217 1 Gender: F Independent Marketing Consultant: JOJO : 1955 Requested By: KARL RODRIGUEZ Order Number: [id number] Reading MD: Jose Landis Measurements Intervals [place] Rate: 99 P: 46 NV: 136 QRS: -9 QRSD: 70 T: 90 QT: 386 QTc: 495 Interpretive Statements Normal sinus rhythm No previous ECG available for comparison Electronically Signed On 01-24-2025 12:53:56 CDT by Jose Landis Please click the below link to view image of tracing.
[2025-01-23] MEDS ORDERED: SUCRALFATE 1 GM TABLET PO SCH (21:00)
[2025-01-23] MEDS: CHLORHEXIDINE GLUCONATE 15 ML MOUTHWASH MM SCH (21:12)
--- NOTE | 2025-01-23 22:02 | HMCIMG ---
EXAMINATION: ULTRASOUND OF THE RETROPERITONEUM. CLINICAL HISTORY: Decreased renal function. COMPARISON: CT abdomen and pelvis without contrast dated 01/22/2025. TECHNIQUE: Real-time grayscale ultrasound images of the kidneys. FINDINGS: The right kidney is smaller in caliber, and the left kidney is normal in caliber, the right kidney measures 7.4 x 3.9 x 3.1 cm and the left kidney measures 8.2 x 3.0 x 3.3 cm in its craniocaudal, AP, and transverse dimensions respectively. There is normal renal cortical thickness and increased cortical echogenicity. There is no renal calculus or hydronephrosis. The urinary bladder is empty. There is Kamara???s bulb. IMPRESSION: Relatively small right kidney. Increased echogenicity of both the kidneys may reflect renal parenchymal disease. Recommend clinical correlation and with laboratory parameters. Kamara???s bulb is in situ. /[place]
[2025-01-23] MEDS: NOREPINEPHRINE 16MG/NS 250ML PREMIX IV SCH (23:50)
[2025-01-24] VITALS (96 sets, daily range): BP systolic 79–132; BP diastolic 37–75; PULSE 87–103; RESP 5–18; TEMP 98.1–98.7; O2SAT 99–100
[2025-01-24] MEDS: ARTIFICAL TEARS SOL 15 ML OU SCH (00:05)
[2025-01-24 04:07] LABS: ABG BASE EXCESS -3.3 mmol/L (-2.0-3.0); ABG HCO3 20.7 mmol/L (21.0-28.0); ABG OXYGEN SATURATION 98.3 % (94.0-98.0); ABG PCO2 32 mmHg (32-45); ABG PH 7.425 (7.350-7.450); CARBON MONOXIDE 0.2 % (0.5-1.5); DEVICE COMMENT LR,RN JAMES; PO2, ARTERIAL BG 129.8 mmHg (83.0-108.0); TEMPERATURE, CELSIUS BG 37.0 CELSIUS (35.5-37.0); VENT MODE, BG AC (ROOM AIR)
[2025-01-24 06:29] LABS: % IRON SATURATION 63.6 % (22-44); IRON, SERUM 28.0 mcg/dL (50-170)
[2025-01-24 07:06] LABS: ASPARTATE AMINOTRANSFERASE 33.0 U/L (10-37); CREATININE 2.4 mg/dL (0.5-1.0); GLOMERULAR FILTR. RATE CALC 21.0 mL/min (>90); GLUCOSE,RANDOM 153.0 mg/dL (70-105); PHOSPHORUS 4.1 mg/dL (2.5-4.9); SODIUM SERUM 144.0 mmol/L (136-145); TOTAL PROTEIN, SERUM 4.6 g/dL (6.0-8.3); UREA NITROGEN, BLOOD 39.0 mg/dL (7-18)
[2025-01-24 07:09] LABS: IMMATURE GRANULOCYTE ABSOLUTE 0.14 K/uL (0-1); NUCLEATED RED BLOOD CELLS 0.0 % (0.0-0.19); PLATELET COUNT (AUTO) 367 K/uL (130-400); RED BLOOD CELL COUNT(AUTO) 2.25 MIL/uL (4.00-5.50); RED CELL DISTRIBUTION WIDTH 17.7 % (11.0-15.5); WHITE BLOOD COUNT (AUTO) 14.4 K/uL (4.8-10.8)
--- NOTE | 2025-01-24 07:52 | PN ---
[facility] PROGRESS NOTE Date Patient Seen: Jan 24, 2025 Time of Visit: 07:52 Supervising Physician: Kartik Suárez MD Primary Care Physician: NANDO HUYNH Outpatient Specialists: [ ] Inpatient Consults: DR RAMOS, DR HEAD, DR SIMENTAL PROBLEM LIST: Septic shock requiring pressors, POA Acute metabolic encephalopathy POA Acute Hypoxic rep failure requiring intubation for airway protection POA Acute complicated cystitis POA Acute on chronic anemia 2/ GI Bleed (Hematemesis) POA S/P EGD on 01/23/25 with findings of: Tear in lower 3rd of esophagus Erythematous mucosa in the stomach A gastric tube was found in the stomach Normal duodenal bulb and 2nd portion of the duodenum No specimens collected Hyperglycemia in the presence of type 2 diabetes mellitus, POA right adnexal region there is a cystic structure measuring 5.9 x 3.9 cm Normocytic anemia Thrombocytosis Hypokalemia Electrolyte derangement (hypokalemia, hypocalcemia) DAVID severe Hypoalbuminemia Malnutrition Transaminitis Elevated TSH suspected myxedema Dysphagia Gastrostomy Status POA Comorbidities: Uncontrolled type 2 diabetes mellitus Essential hypertension Anemia Prior history of CVA Right [id number] amputation G-tube in situ Bed ridden Recent hospitalization [facility] for hematemesis INTERVAL HISTORY: Pt continues intubated on low dose Levophed drip for blood pressure support. HGb 6.6 this morning. 1 unit of PRBC administered, no obvious bleeding from stool or gtube site. we will keep pt intubated today and transfuse 1 unit of PRBC. Poor urine output 140 m in the last 24 hours. Neprhology is following and we will follow their recommendations. ,CR 2.4 and GFR 21, slighty worsened. glucose is improved 153mg/dl. albumin 0.9. Blood cultures no growth x 48 hours. Urine culture COLONY COUNT: >100,000 CFU/ML. on chest XR left lower lobe infiltrate and et tube appears in good position. She continues on broad spectrum ABX coverage. Pt was found to have a rt axillary DVT- No recommendations for heparin gtt given acute anemia from blood loss. Plans for daily sedation vacation and SBT's. REVIEW OF SYSTEMS: Unable to obtain due to patient's intubated PHYSICAL EXAM: GENERAL: Critically ill intubated and sedated. HEENT: Sclera non icteric, dry mucosa NECK: Supple, no JVD, trachea midline LUNGS: Clear breath sounds bilaterally. No wheezes HEART: Regular rate and rhythm. Normal S1 and S2, without murmurs ABD: Abdomen soft, nontender. Bowel sounds present EXT: No clubbing cyanosis or edema, history of right BKA NEURO: Intubated and sedated Vital Signs (last 8hr) Date Time Temp Pulse Resp B/P (MAP) Pulse Ox O2 Delivery O2 Flow Rate FiO2 01/24/25 06:16 99 30 01/24/25 04:10 96 14 110/47 (68) 100 01/24/25 03:55 95 8 99/48 (65) 100 01/24/25 03:45 100 30 01/24/25 03:40 98 14 105/37 (59) 100 01/24/25 03:34 100 Ventilator+ 30 01/24/25 03:25 97 14 95/45 (62) 100 01/24/25 03:10 98.8 97 14 95/52 (66) 100 01/24/25 02:55 95 13 100/50 (67) 100 01/24/25 02:40 97 9 131/48 (75) 100 01/24/25 02:25 94 8 126/55 (78) 100 01/24/25 02:10 92 7 126/57 (80) 100 01/24/25 01:55 94 8 131/52 (78) 100 01/24/25 01:40 96 11 132/53 (79) 100 01/24/25 01:25 100 17 121/75 (90) 100 01/24/25 01:10 97 14 109/67 (81) 100 01/24/25 00:55 97 14 110/51 (70) 100 01/24/25 00:40 98 14 111/60 (77) 100 01/24/25 00:25 98 15 104/49 (67) 100 01/24/25 00:16 103 15 108/58 (75) 100 01/23/25 23:55 101 14 132/61 (84) 100 LABS: Hematology Labs: Test 01/24/25 07:01 Range/Units White Blood Count 14.4 #H 4.8-10.8 K/uL Red Blood Count 2.25 L 4.00-5.50 MIL/uL Hemoglobin 6.6 *L 12.0-16.0 g/dL Hematocrit 19.7 *L 36-48 % Mean Corpuscular Volume 87.6 79-99 fL Mean Corpuscular Hemoglobin 29.3 27.0-33.0 pg Mean Corpuscular Hemoglobin Concent 33.5 32.0-36.0 g/dL Red Cell Distribution Width 17.7 H 11.0-15.5 % Platelet Count 367 130-400 K/uL Mean Platelet Volume 10.5 7.5-10.5 fL Immature Granulocyte % (Auto) 1.0 0-1 % Neutrophils (%) (Auto) 77.1 H 40.0-77.0 % Lymphocytes (%) (Auto) 13.8 L 21.0-51.0 % Monocytes (%) (Auto) 7.1 3.0-13.0 % Eosinophils (%) (Auto) 0.2 0.0-8.0 % Basophils (%) (Auto) 0.8 0.0-5.0 % Neutrophils # (Auto) 11.1 H 1.8-7.7 K/uL Lymphocytes # (Auto) 2.0 1.0-4.8 K/uL Monocytes # (Auto) 1.0 0.1-1.0 K/uL Eosinophils # (Auto) 0.03 0.00-0.70 K/uL Basophils # (Auto) 0.11 0.00-0.20 K/uL Absolute Immature Granulocyte (auto 0.14 0-1 K/uL Nucleated Red Blood Cells 0.0 0.0-0.19 % Chemistry Labs: Test 01/24/25 05:50 01/23/25 17:51 01/23/25 17:01 01/23/25 11:27 Range/Units Sodium Level 144 136-145 mmol/L Potassium Level 3.5 3.5-5.1 mmol/L Chloride Level 113 H 101-111 mmol/L Carbon Dioxide Level 23 21-32 mmol/L Blood Urea Nitrogen 39 H 7-18 mg/dL Creatinine 2.4 H 0.5-1.0 mg/dL Glomerular Filtration Rate Calc 21 >90 mL/min Random Glucose 153 H 70-105 mg/dL Uric Acid 6.8 2.6-7.2 mg/dL Total Calcium 7.0 L 8.5-10.1 mg/dL Phosphorus Level 4.1 2.5-4.9 mg/dL Magnesium Level 2.20 1.80-2.40 mg/dL Iron Level 28 L 50-170 mcg/dL Total Iron Binding Capacity 44 L 250-450 mcg/dL Percent Iron Saturation 63.6 H 22-44 % Ferritin 1612 H 15-150 ng/mL Total Bilirubin 0.3 0.2-1.0 mg/dL Aspartate Amino Transf (AST/SGOT) 33 10-37 U/L Alanine Aminotransferase (ALT/SGPT) 13 12-78 U/L Alkaline Phosphatase 128 50-136 U/L Total Protein 4.6 L 6.0-8.3 g/dL Albumin 0.9 L 3.5-5.0 g/dL Thyroid Stimulating Hormone (TSH) 7.62 #H 0.36-3.74 uIU/mL Troponin I High Sensitivity 507 *H 4-50 ng/L Whole Blood Glucose 149 H 70-110 MG/DL Lactic Acid Level 2.9 H 0.8-2.5 mmol/L Total Creatine Kinase 57 21-232 U/L Procalcitonin 3.72 H 0.05-0.5 ng/mL Test 01/23/25 05:50 01/22/25 16:00 01/22/25 12:44 01/22/25 12:11 Range/Units Free Thyroxine (T4) Direct 0.67 L 0.76-1.46 ng/dL Free Triiodothyronine (T3) pg/mL 0.76 L 2.18-3.98 pg/mL C-Reactive Protein, Quantitative 56.50 H 0.5-3.0 mg/L Ammonia 13 11-32 umol/L Hemoglobin A1c 6.4 H 4.0-6.0 % Estimated Average Glucose (eAG) 137 H 70-126 mg/dL Test 01/22/25 08:53 Range/Units Lipase 16 16-77 U/L DIAGNOSTICS / RADIOLOGY RESULTS: [ ] [place] [id number] [address] IMAGING REPORT Signed PATIENT: JUSTIN KLINE MR#: [id number] : 1955 SEX: F AGE: 70 LOCATION: [facility] ORDER 99 STATUS: ADM IN REPORT#: [id number] SERVICE 0600 REASON: vented pt ORDERING PHYSICIAN: KARL RODRIGUEZ PROCEDURE: CXR1VW - CHEST 1VW EXAM: CR Chest, 1 View. CLINICAL HISTORY: vented pt COMPARISON: None provided. FINDINGS: LUNGS: Endotracheal tube midline above arminda Slight worsening left lower lobe infiltrate PLEURAL SPACES: No evidence of pleural effusion or pneumothorax. MEDIASTINUM: Cardiac size and mediastinal contours within normal limits. BONES: No acute osseous abnormality. IMPRESSION: 1. Endotracheal tube midline above arminda 2. Slight worsening left lower lobe infiltrate /[place] DICTATED BY: ANA ALSTON MD DATE: 01/24/252109 ELECTRONICALLY SIGNED BY: ANA ALSTON MD DATE: 01/24/252109 PLAN avoid anticoagulants due to acute anemia Daily Sedation vacation and SBT's CBC CMP Chest x-ray Panculture Flu and COVID Trend lactic acid Protocol CRP Blood cultures Broad-spectrum antibiotic Crystalloids 30 mL/kilogram and 1st 3 hours bolus Target map 65 Consider hydrocortisone 50 mg q.6 hours IV for vasopressor dependent NEURO: Minimize central acting medications as possible. Fall Precautions. Well lighted room through the day and minimize interruptions through the night to prevent acute delirium. PULMONARY: Supplemental 02 as needed Titrate Fio2 to keep Spo2 > or = 90% DuoNebs and CPT as needed IS hourly while awake for pulmonary hygiene Out of bed to chair as tolerated VAP Bundle Vent/BIPAP Settings: Assist-control volume control tidal volume of 400 respiratory rate of 18 FiO2 of 50% and PEEP of five. Maintain plateau pressure less than 30 CARDIOVASCULAR: Follow hemodynamics. Titrate vasopressor to keep MAP >65 or systolic blood pressure >95mmHg Drips: Fentanyl Versed Levophed Vasopressin Protonix Sandostatin LINES: Right femoral central line PICC line pending GI & NUTRITION: Continue nutritional support Aspirations precautions Prokinetic agents and laxatives as needed KIDNEYS & ELECTROLYTES: Strict monitoring of intake and output Daily weights Avoid nephrotoxic agents Monitor electrolytes and replace as needed Goal urine output of 30mL/hr or 0.5mL/kg/hr Urine output: [ ] Fluid Balance: [ ] ENDOCRINE: Maintain blood glucose between 100-180 at all times. Insulin sliding scale for blood glucose management INFECTIOUS DISEASE: Trend temperature. Leonard-culture if febrile. Micro: [ ] follow urine culture blood culture neg Antibiotics: [ ] cefepime flagyl zyvox HEMATOLOGY & COAGULATION: Monitor H&H. Keep Hgb > 7 Transfuse 1 unit of PRBC for Hgb < 7 Transfuse 1 pack of platelets of platelets < 20, 000 Watch for any signs and symptoms of bleeding SKIN: Pressure ulcer prevention per facility protocol Rehab: PT/OT Prophylaxis: GI: Protonix 40 mg b.i.d. DVT: SCDs avoid anticoagulants due to hematemesis Code Status: Full Resuscitation Disposition: [ ICU Other: Total patient care time exceeds 35 minutes excluding all procedures. Case was discussed and seen with my supervising physician. The above plan was formulated and agreed upon. ATTESTATION BY PHYSICIAN The patient has been seen and evaluated, the case has been discussed with the INSURANCE BILLER, I agree with the clinical findings and plan of care. Kartik Suárez MD, [facility] Jan 24, 2025 07:52
[2025-01-24] MEDS ORDERED: PHARMACY COMMUNICATION MISC SCH (08:00)
[2025-01-24] MEDS ORDERED: BUMETANIDE 1MG/4ML VIAL IVP PRN (08:00)
[2025-01-24] MEDS: LINEZOLID 600 MG/ISO-OSM 300 ML IV SCH (09:15)
[2025-01-24 12:22] LABS: GLUCOSE, URINE (UA) NEGATIVE (NEGATIVE); LEUKOCYTE ESTERASE ,URINE MODERATE Leu/uL (NEGATIVE); NITRATE,URINE NEGATIVE (NEGATIVE); OCCULT BLOOD,URINE MODERATE (NEGATIVE)
[2025-01-24 12:36] LABS: ADD UA MICROSCOPIC YES
[2025-01-24 12:48] LABS: APPEARANCE,URINE TURBID (CLEAR)
[2025-01-24 12:49] LABS: SQUAMOUS EPITHELIAL CELL,UR Few /HPF (0-2); YEAST,URINE BUDDING Few /HPF (None Seen)
--- NOTE | 2025-01-24 13:03 | PN ---
NEPHROLOGY PROGRESS NOTE Date/Time Patient Seen: Jan 24, 2025 SUBJECTIVE: This is a 70-year-old female with past medical history of diabetes mellitus type 2, hypertension, anemia, history of CVA, history of right below-knee amputation She presented to the hospital secondary to hematemesis. Patient is currently intubated and sedated. Most information was obtained from chart review. bedside nurse, and family due to patient's condition The patient was noted to have black colored vomit at home which started yesterday. She has a history of peptic ulcer disease. She also has a PEG tube placed around two weeks ago. Peg tube was placed in [facility]. She was noted to have elevated BUN/creatinine. Continues to require vasopressors to maintain blood pressure. She received one dose of Bumex. Continues on antibiotics We are consulted for renal failure Renal function remains elevated Electrolytes are stable. Iron panel was noted, she received PRBC transfusion earlier today. Imaging studies were noted She continues on antibiotics She was seen in the ICU, intubated and sedated Family at the bedside Condition is critical and guarded REVIEW OF SYSTEMS: Difficult to obtain given status of the patient who remains intubated mechanically ventilated Vital Signs (last 8hr) Date Time Temp Pulse Resp B/P (MAP) Pulse Ox O2 Delivery O2 Flow Rate FiO2 01/24/25 12:00 91 30 01/24/25 10:30 95 14 109/55 (73) 100 01/24/25 10:15 93 14 98/55 (69) 100 01/24/25 10:00 97 14 110/56 (74) 100 01/24/25 09:45 96 14 103/57 (72) 100 01/24/25 09:30 94 10 106/54 (71) 100 01/24/25 09:24 97 30 01/24/25 09:15 99 14 87/43 (58) 100 01/24/25 09:00 93 18 106/55 (72) 100 01/24/25 08:45 93 10 93/46 (62) 100 01/24/25 08:30 93 10 98/55 (69) 100 01/24/25 08:30 93 12 106/53 (70) 100 01/24/25 08:15 95 12 97/50 (66) 100 01/24/25 08:05 94 12 103/55 (71) 100 01/24/25 08:00 94 12 105/54 (71) 100 01/24/25 08:00 98.4 01/24/25 08:00 100 Ventilator+ 30 01/24/25 07:45 94 12 92/52 (65) 100 01/24/25 07:30 96 14 96/51 (66) 100 01/24/25 07:15 98 14 107/55 (72) 100 01/24/25 07:00 95 14 99/55 (70) 99 01/24/25 06:55 94 97/51 (66) 100 01/24/25 06:50 94 5 97/52 (67) 100 01/24/25 06:45 96 96/54 (68) 100 01/24/25 06:40 98 15 90/52 (65) 100 01/24/25 06:25 99 9 82/45 (57) 100 01/24/25 06:23 99 10 86/44 (58) 100 01/24/25 06:16 99 30 01/24/25 05:40 96 16 100/48 (65) 100 01/24/25 05:10 96 14 116/58 (77) 100 PHYSICAL EXAM: General: acutely ill, sedated, intubated, and mechanically ventilated HEENT: head is atraumatic, pupils equal and reactive, ET tube in place Neck: supple, no masses, no lymphadenopathy, no thyromegaly, no JVD Lungs: decreased breath sounds bilaterally, symmetrical chest movement Cardio: regular rate, S1 and S2 normal, no rub or gallop Abdomen: soft, non tender, no distension, no organomegaly Extremities: trace edema bilateral lower extremities, no cyanosis or clubbing Skin: no rashes or suspicious lesions Neuro: sedated Current Medications Medications (Trade) Dose Ordered Sig/Arik Route Start Time Stop Time Status Last Admin Dose Admin Albumin Human 50 ml @ 0 mls/hr Q8H6 IV 01/24/25 14:00 01/24/25 22:00 Artificial Tears (Artificial Tears) 1 DROP OR AD Q8H OU 01/23/25 19:30 02/22/25 19:29 01/24/25 12:13 1 DROP Cefepime HCl (MAXipime 2 gm vial) 2 gm Q24H IVPB 01/23/25 12:00 02/02/25 11:59 01/24/25 12:13 2 GM Ceftriaxone Sodium (ROCEphine 1G INJ) 1 gm Q24H IVPB 01/22/25 12:00 01/22/25 16:25 DC 01/22/25 14:18 1 GM Chlorhexidine Gluconate (Peridex) 15 ml TID MM 01/23/25 21:00 02/06/25 20:59 01/24/25 09:15 15 ML Fentanyl Citrate 100 ml @ 2.5 mls/hr PROTOCOL IV 01/22/25 12:00 01/22/25 11:55 DC Fentanyl Citrate 100 ml @ 2.5 mls/hr PROTOCOL IV 01/22/25 12:00 01/29/25 11:59 01/24/25 06:59 2.5 MLS/HR Insulin Human Regular (humuLIN R 100 UNIT/ML 3ML) INSULIN SLIDING SCAL... ACHS SQ 01/22/25 21:00 02/21/25 20:59 01/23/25 12:20 2 UNIT Levetiracetam (kepPRA 500 MG TABLET) 500 mg BID PO 01/22/25 21:00 01/22/25 22:13 DC Levetiracetam 500 mg/Sodium Chloride 100 ml @ 400 mls/hr Q12H9 IV 01/22/25 22:00 02/21/25 21:59 01/24/25 09:17 400 MLS/HR Levothyroxine Sodium (SYNTHroid VIAL 100MCG) 100 mcg SYN IV 01/23/25 06:30 02/22/25 06:29 01/24/25 05:34 100 MCG Linezolid 300 ml @ 150 mls/hr Q12H IV 01/24/25 08:00 02/03/25 07:59 01/24/25 09:15 150 MLS/HR Metronidazole/ Sodium Chloride 100 ml @ 100 mls/hr Q8H6 IVPB 01/22/25 22:00 02/01/25 21:59 01/24/25 05:34 100 MLS/HR Midazolam HCl 50 ml @ 0 mls/hr PROTOCOL IV 01/22/25 12:00 01/29/25 11:59 01/22/25 20:51 1 MLS/HR Norepinephrine 250 ml @ 0 mls/hr PROTOCOL IV 01/22/25 10:00 01/23/25 09:52 DC 01/22/25 14:24 60 MLS/HR Norepinephrine Bitartrate (Norepineph 16 Mg/250ml NS Premix) per protocol PROTOCOL IV 01/23/25 10:00 02/22/25 09:59 01/23/25 23:50 16 MG Octreotide Acetate 1250 mcg/ Sodium Chloride 250 ml @ 0 mls/hr PROTOCOL IV 01/22/25 12:30 01/22/25 12:17 DC Octreotide Acetate 1250 mcg/ Sodium Chloride 250 ml @ 0 mls/hr PROTOCOL IV 01/22/25 12:30 01/24/25 09:23 DC 01/22/25 12:41 5 MLS/HR Pantoprazole Sodium (PROTonix 40MG INJ) 40 mg BID IVP 01/24/25 21:00 02/23/25 20:59 Pantoprazole Sodium 80 mg/ Sodium Chloride 100 ml @ 10 mls/hr Q10H IV 01/22/25 09:00 01/24/25 09:23 DC 01/24/25 09:17 10 MLS/HR Pharmacy Profile Note (Pharmacy Communication) 1 each ONCE MISC 01/22/25 12:00 01/22/25 11:53 DC Pharmacy Profile Note (Pharmacy Communication) 1 each ONCE MISC 01/22/25 12:00 01/22/25 11:53 DC Pharmacy Profile Note (Pharmacy Communication) 1 each ONCE MISC 01/23/25 13:00 01/23/25 13:09 DC Pharmacy Profile Note (Pharmacy Communication) 1 each ONCE MISC 01/24/25 08:00 01/24/25 07:51 DC Sodium Chloride 1,000 ml @ 150 mls/hr Q6H40M IV 01/22/25 12:00 01/23/25 10:56 DC 01/23/25 02:45 150 MLS/HR Sucralfate (Carafate) 1 gm BID PO 01/23/25 21:00 01/23/25 11:41 DC Sucralfate (Carafate) 1 gm TID PO 01/23/25 14:00 02/22/25 20:59 01/24/25 09:15 1 GM Thiamine HCl 100 mg/Sodium Chloride 50 ml @ 100 mls/hr Q24H IV 01/23/25 14:00 01/25/25 14:29 01/23/25 14:05 100 MLS/HR Vancomycin HCl (Vancomycin 750mg) 750 mg Q24H IVPB 01/23/25 17:00 01/23/25 10:56 DC Vancomycin HCl (Vancomycin Protocol) 1 each AD IV 01/22/25 15:00 01/23/25 10:56 DC LABORATORY: [ ] Hematology Labs: Test 01/24/25 07:01 Range/Units White Blood Count 14.4 #H 4.8-10.8 K/uL Red Blood Count 2.25 L 4.00-5.50 MIL/uL Hemoglobin 6.6 *L 12.0-16.0 g/dL Hematocrit 19.7 *L 36-48 % Mean Corpuscular Volume 87.6 79-99 fL Mean Corpuscular Hemoglobin 29.3 27.0-33.0 pg Mean Corpuscular Hemoglobin Concent 33.5 32.0-36.0 g/dL Red Cell Distribution Width 17.7 H 11.0-15.5 % Platelet Count 367 130-400 K/uL Mean Platelet Volume 10.5 7.5-10.5 fL Immature Granulocyte % (Auto) 1.0 0-1 % Neutrophils (%) (Auto) 77.1 H 40.0-77.0 % Lymphocytes (%) (Auto) 13.8 L 21.0-51.0 % Monocytes (%) (Auto) 7.1 3.0-13.0 % Eosinophils (%) (Auto) 0.2 0.0-8.0 % Basophils (%) (Auto) 0.8 0.0-5.0 % Neutrophils # (Auto) 11.1 H 1.8-7.7 K/uL Lymphocytes # (Auto) 2.0 1.0-4.8 K/uL Monocytes # (Auto) 1.0 0.1-1.0 K/uL Eosinophils # (Auto) 0.03 0.00-0.70 K/uL Basophils # (Auto) 0.11 0.00-0.20 K/uL Absolute Immature Granulocyte (auto 0.14 0-1 K/uL Nucleated Red Blood Cells 0.0 0.0-0.19 % Chemistry Labs: Test 01/24/25 12:10 01/24/25 07:36 01/24/25 05:50 01/23/25 17:51 Range/Units Whole Blood Glucose 154 H 70-110 MG/DL Lactic Acid Level 1.4 0.8-2.5 mmol/L Sodium Level 144 136-145 mmol/L Potassium Level 3.5 3.5-5.1 mmol/L Chloride Level 113 H 101-111 mmol/L Carbon Dioxide Level 23 21-32 mmol/L Blood Urea Nitrogen 39 H 7-18 mg/dL Creatinine 2.4 H 0.5-1.0 mg/dL Glomerular Filtration Rate Calc 21 >90 mL/min Random Glucose 153 H 70-105 mg/dL Uric Acid 6.8 2.6-7.2 mg/dL Total Calcium 7.0 L 8.5-10.1 mg/dL Phosphorus Level 4.1 2.5-4.9 mg/dL Magnesium Level 2.20 1.80-2.40 mg/dL Iron Level 28 L 50-170 mcg/dL Total Iron Binding Capacity 44 L 250-450 mcg/dL Percent Iron Saturation 63.6 H 22-44 % Ferritin 1612 H 15-150 ng/mL Total Bilirubin 0.3 0.2-1.0 mg/dL Aspartate Amino Transf (AST/SGOT) 33 10-37 U/L Alanine Aminotransferase (ALT/SGPT) 13 12-78 U/L Alkaline Phosphatase 128 50-136 U/L Total Protein 4.6 L 6.0-8.3 g/dL Albumin 0.9 L 3.5-5.0 g/dL Thyroid Stimulating Hormone (TSH) 7.62 #H 0.36-3.74 uIU/mL Troponin I High Sensitivity 507 *H 4-50 ng/L Test 01/23/25 11:27 01/23/25 05:50 01/22/25 16:00 Range/Units Total Creatine Kinase 57 21-232 U/L Procalcitonin 3.72 H 0.05-0.5 ng/mL Free Thyroxine (T4) Direct 0.67 L 0.76-1.46 ng/dL Free Triiodothyronine (T3) pg/mL 0.76 L 2.18-3.98 pg/mL C-Reactive Protein, Quantitative 56.50 H 0.5-3.0 mg/L DIAGNOSTICS / RADIOLOGY: [place] [id number] [address] IMAGING REPORT Signed PATIENT: JUSTIN KLINE MR#: [id number] : 1955 SEX: F AGE: 70 LOCATION: 2CH ORDER 1301 STATUS: ADM IN REPORT#: [id number] SERVICE 1258 REASON: Decreased renal function ORDERING PHYSICIAN: SAUMYA ANTONIO PROCEDURE: RENAL - US RENAL SONOGRAM EXAMINATION: ULTRASOUND OF THE RETROPERITONEUM. CLINICAL HISTORY: Decreased renal function. COMPARISON: CT abdomen and pelvis without contrast dated 01/22/2025. TECHNIQUE: Real-time grayscale ultrasound images of the kidneys. FINDINGS: The right kidney is smaller in caliber, and the left kidney is normal in caliber, the right kidney measures 7.4 x 3.9 x 3.1 cm and the left kidney measures 8.2 x 3.0 x 3.3 cm in its craniocaudal, AP, and transverse dimensions respectively. There is normal renal cortical thickness and increased cortical echogenicity. There is no renal calculus or hydronephrosis. The urinary bladder is empty. There is Kamara???s bulb. IMPRESSION: Relatively small right kidney. Increased echogenicity of both the kidneys may reflect renal parenchymal disease. Recommend clinical correlation and with laboratory parameters. Kamara???s bulb is in situ. /[place] DICTATED BY: RADHA BECERRA Jr., MD DATE: 01/23/252300 ELECTRONICALLY SIGNED BY: RADHA BECERRA Jr., MD DATE: 01/23/252300 PATIENT: JUSTIN KLINE MR#: [id number] : 1955 SEX: F AGE: 70 LOCATION: 2CH ORDER 0745 STATUS: ADM IN REPORT#: [id number] SERVICE 0743 REASON: intubated,congestion ORDERING PHYSICIAN: KARL RODRIGUEZ PROCEDURE: CXR1VW - CHEST 1VW EXAM: CR Chest, 1 View. CLINICAL HISTORY: intubated,congestion COMPARISON: 01/22 16:55 EDT CR - CHEST 1VW FINDINGS: ET tube 3.7 cm above the arminda. LUNGS: The lungs show no infiltrate or other acute finding. PLEURAL SPACES: No pleural effusion or pneumothorax. MEDIASTINUM: Cardiac size and mediastinal contours within normal limits. BONES: No acute osseous abnormality. IMPRESSION: No acute cardiopulmonary pathology is evident. ET tube 3.7 cm above the arminda. /[place] DICTATED BY: RADHA BECERRA Jr., MD DATE: 01/23/25 1010 ELECTRONICALLY SIGNED BY: RADHA BECERRA Jr., MD DATE: 01/23/25 101 PATIENT: JUSTIN KLINE MR#: [id number] : 1955 SEX: F AGE: 70 LOCATION: [facility] ORDER 23 STATUS: ADM IN REPORT#: [id number] SERVICE 22 REASON: NG tube location ORDERING PHYSICIAN: KENA HAWLEY MD PROCEDURE: ABD 1VW - ABD 1VW ADDENDUM REPORT ADDENDUM: Results were shared by telephone at 10:10 pm on 01-22-25 and acknowledged by KENA Rivas. /[place] EXAM: CR Abdomen, 1 View. CLINICAL HISTORY: NG tube location COMPARISON: None provided. FINDINGS: BOWEL: The bowel gas pattern is within normal limits. PERITONEUM/SOFT TISSUES: No free air evident. No pathologic appearing calcification. BONES: No acute osseous abnormality. MISCELLANEOUS: No nasogastric tube identified. Gastrostomy tube left upper IMPRESSION: 1. No nasogastric tube identified. 2. Gastrostomy tube left upper quadrant /[place] DICTATED BY: ANA ALSTON MD DATE: 09/27/25 2211 ELECTRONICALLY SIGNED BY: DATE: EXAM: CR Abdomen, 1 View. CLINICAL HISTORY: NG tube location COMPARISON: None provided. FINDINGS: BOWEL: The bowel gas pattern is within normal limits. PERITONEUM/SOFT TISSUES: No free air evident. No pathologic appearing calcification. BONES: No acute osseous abnormality. MISCELLANEOUS: No nasogastric tube identified. Gastrostomy tube left upper IMPRESSION: 1. No nasogastric tube identified. 2. Gastrostomy tube left upper quadrant /[place] DICTATED BY: ANA ALSTON MD DATE: 01/22/252200 ELECTRONICALLY SIGNED BY: ANA ALSTON MD DATE: 01/22/252200 PATIENT: JUSTIN KLINE MR#: [id number] : 1955 SEX: F AGE: 70 LOCATION: [facility] ORDER 50 STATUS: ADM IN REPORT#: [id number] SERVICE 49 REASON: post intubation CXR ORDERING PHYSICIAN: KARL RODRIGUEZ PROCEDURE: CXR1VW - CHEST 1VW ADDENDUM REPORT ADDENDUM: Results were shared by telephone at 6:33 pm on 01-22-25 and acknowledged by patient's nurse JESSICA Mas. /[place] EXAM: CR Chest, 2 View. CLINICAL HISTORY: post intubation CXR COMPARISON: None provided. FINDINGS: LUNGS: Endotracheal tube appears midline above arminda PLEURAL SPACES: No pleural effusion or pneumothorax. MEDIASTINUM: The cardiomediastinal silhouette is within normal limits. BONES: No acute osseous abnormality. MISCELLANEOUS: Question nasogastric tube in the thoracic inlet. IMPRESSION: 1. Endotracheal tube appears midline above arminda 2. Question nasogastric tube in the thoracic inlet. /[place] DICTATED BY: ANA ALSTON MD DATE: 01/22/251835 ELECTRONICALLY SIGNED BY: DATE: EXAM: CR Chest, 2 View. CLINICAL HISTORY: post intubation CXR COMPARISON: None provided. FINDINGS: LUNGS: Endotracheal tube appears midline above arminda PLEURAL SPACES: No pleural effusion or pneumothorax. MEDIASTINUM: The cardiomediastinal silhouette is within normal limits. BONES: No acute osseous abnormality. MISCELLANEOUS: Question nasogastric tube in the thoracic inlet. IMPRESSION: 1. Endotracheal tube appears midline above arminda 2. Question nasogastric tube in the thoracic inlet. /[place] DICTATED BY: ANA ALSTON MD DATE: 01/22/251821 ELECTRONICALLY SIGNED BY: ANA ALSTON MD DATE: 01/22/251821 PATIENT: JUSTIN KLINE MR#: [id number] : 1955 SEX: F AGE: 70 LOCATION: [facility] ORDER 151 STATUS: ADM IN REPORT#: [id number] SERVICE 1509 REASON: transaminitis rule out CBD dilation/obstruction cholangitis ORDERING PHYSICIAN: KARL RODRIGUEZ PROCEDURE: ABDRUQLTD - US ABDOMINAL RUQ\LTD EXAMINATION: ULTRASOUND OF THE ABDOMEN (LIMITED) WITH COLOR DOPPLER. CLINICAL HISTORY: Transaminitis. To rule out CBD obstruction. COMPARISON: CT abdomen and pelvis without contrast from the same day. TECHNIQUE: Real-time grayscale ultrasound images of the abdomen. In addition, color Doppler is medically necessary to perform in order to evaluate vascularity and blood flow. FINDINGS: Liver: Normal in caliber, the right hepatic lobe measures 15.4 cm in the craniocaudal dimension. There is increased echogenicity of the hepatic parenchyma. There is no focal hepatic abnormality or intrahepatic biliary ductal dilatation. There is normal spectral Doppler of the main portal vein. Gallbladder: Within normal limits with normal wall thickness (0.22 cm). No hyperemia or pericholecystic free fluid. There are few calculi, the largest measure 1.5 cm. Common bile duct is normal in caliber, measuring 0.28 cm. Pancreas: Obscured by overlying bowel gas. The right kidney is normal in caliber, the right kidney measures 8.2 x 3.3 x 2.9 cm in craniocaudal, AP, and transverse dimensions respectively. There is normal renal cortical thickness, and cortical echogenicity. There is no renal calculus or hydronephrosis. IMPRESSION: Hepatic steatosis. Cholelithiasis. No cholecystitis. /[place] DICTATED BY: GOVIND HAYES MD DATE: 01/23/25856 ELECTRONICALLY SIGNED BY: GOVIND HAYES MD DATE: 01/23/25856 PATIENT: JUSTIN KLINE MR#: [id number] : 1955 SEX: F AGE: 70 LOCATION: [facility] ORDER 26 STATUS: ADM IN REPORT#: [id number] SERVICE 25 REASON: PERICARDIAL EFFUSION. Please also assess EF ORDERING PHYSICIAN: KENA HAWLEY MD PROCEDURE: ECHO [facility] - ECHO 2-D COMPLETE APPROVED REPORT EXAM: Two-dimensional and M-mode echocardiogram with Doppler and color Doppler. INDICATION ICD: Assess pericardial effusion and ejection fraction 2D Dimensions RVDd 3.0 cm LVEF(%) 49.3 (>50%) LVED Vol(simp.) 20.0 mL IVSd 1.9 (0.7-1.1cm) FS(%) 23 % LVES Vol(simp.) 9.0 mL LVDd 2.4 (3.8-5.6cm) LA (2D) 2.6 (1.6-4.0cm) LVEF(%, simp.) 55 % PWd 2.0 (0.7-1.1cm) Ao Root(2D) 2.7 (2.0-3.7cm) LA ESV INDEX (BP) 22.00 mL/m2 IVSs 2.0 cm LVOT diam 2.0 (1.8-2.4cm) LVDs 1.8 (2.5-4.0cm) IVC diam 1.2 cm PWs 1.7 cm Deformation Strain Apical 4 -7.1 % Apical 2 -6.9 % Apical 3 -10.1 % Global Strain -8.0 % M-Mode Dimensions EPSS 0.8 cm LA (MM) 2.3 (1.6-4.0cm) Ao Root(MM) 2.9 (2.0-3.7cm) Aortic Valve AoV Vmax 2.1 m/s Ao Peak GR 17.0 mmHg LVOT Vmax 2.1 m/s AoV VTI 0.2 m Ao Mean GR 8.4 mmHg LVOT VTI 0.22 m YASMEEN (VMAX) 3.02 cm2 YASMEEN (VTI) 3.6 cm2 Mitral Valve MV E Vmax 51.6 cm/s DECEL Time 82 ms MV A Vmax 69.0 cm/s P 1/2 T 19 ms E/A ratio 0.7 MVA (PHT) 11.9 cm2 TDI E/E' Medial 6.8 E/E' Lateral 9.3 Medial E' Peak V 7.57 cm/s Lateral E' Peak V 5.54 cm/s Pulmonary Valve PV Vmax 1.3 m/s PV VTI 0.14 m PV Mean GR 3.5 mmHg PV Peak GR 6.5 mmHg Tricuspid Valve TR Vmax 1.5 m/s RAP (EST) 3 mmHg RVSP 12.4 mmHg TR Peak GR 9.4 mmHg Left Ventricle Left ventricular cavity is small. GLS -8.0% Severe concentric left ventricular hypertrophy. LVEF is 50-55%. The left ventricular diastolic function is normal. Right Ventricle The right ventricle is normal size. The right ventricular systolic function is normal. Atria The left atrium size is normal. The right atrium is small in size. Aortic Valve The aortic valve is normal in structure. No aortic regurgitation is present. There is no aortic valvular stenosis. Mitral Valve The mitral valve is normal in structure. There is trace of mitral valve regurgitation noted. There is no mitral valve stenosis. Tricuspid Valve The tricuspid valve is normal in structure. There is trace of tricuspid valve regurgitation noted. Pulmonic Valve Pulmonic valve is not well visualized. There is no pulmonic valvular regurgitation. Great Vessels The aortic root is normal in size. The IVC is normal in size and collapses >50% with inspiration. Pericardium There is no pericardial effusion. Other Information Quality : Technically difficult study due to body habitus, pt intubated Rhythm : Tachycardia Conclusion LVEF is 50-55%. Severe concentric left ventricular hypertrophy. The left ventricular diastolic function is normal. There is no pericardial effusion. DICTATED BY: GIULIANA AWAN DO DATE: 01/22/251317 ELECTRONICALLY SIGNED BY: GIULIANA AWAN DO DATE: 01/23/25 0743 PATIENT: JUSTIN KLINE MR#: [id number] : 1955 SEX: F AGE: 70 [facility] 115 STATUS: ADM IN REPORT#: [id number] SERVICE 115 REASON: S/P INTUBATION. ET tube position ORDERING PHYSICIAN: KENA HAWLEY MD PROCEDURE: CXR1VW - CHEST 1VW EXAM: CR Chest, 2 View. CLINICAL HISTORY: S/P INTUBATION. ET tube position COMPARISON: Radiograph from January 22 at 8:53 AM FINDINGS: Endotracheal tube terminates 1.4 cm above the arminda. LUNGS: There is no mass, infiltrate, or acute pulmonary abnormality. PLEURAL SPACES: No pleural effusion or pneumothorax. MEDIASTINUM: Cardiac size and mediastinal contours within normal limits. Atherosclerosis of the thoracic aorta. BONES: No acute osseous abnormality. IMPRESSION: 1. Endotracheal tube positioned 1.4 cm above the arminda. 2. No acute cardiopulmonary abnormality. /[place] DICTATED BY: RADHA BECERRA Jr., MD DATE: 01/22/251309 ELECTRONICALLY SIGNED BY: RADHA BECERRA Jr., MD DATE: 01/22/251309 PATIENT: JUSTIN KLINE MR#: [id number] : 1955 SEX: F AGE: 70 LOCATION: [facility] ORDER 8 STATUS: REG ER REPORT#: [id number] SERVICE 0948 REASON: gi bleed ORDERING PHYSICIAN: JULISA PETERSON MD PROCEDURE: ABD PEL WO - CT ABDOMEN/PELVIS W/O CONTRAST CT ABDOMEN/PELVIS W/O CONTRAST REASON: gi bleed COMPARISON: None. FINDINGS: Lung bases are clear. There is a small left-sided pleural effusion. There is coronary calcifications suggesting coronary artery disease. There is suggestion of small pericardial effusion. There is a moderate size hiatal hernia. . There are no focal liver lesions. There are normal-appearing kidneys.. Spleen and pancreas appear unremarkable. The gallbladder appears normal as well. There is a feeding gastrostomy tube in place. Bowel loops appear unremarkable. This includes normal appearance of the appendix . There is fecal stasis in the rectal vault. Abutting the right lobe of the bowel in the right lower quadrant and abutting the right psoas muscle there is a a cystic structure measuring 5.9 x 3.9 cm. There is no evidence of free fluid or intraperitoneal air. There are no focal fluid collections. The retroperitoneum appear normal as do pelvic soft tissue structures. Aorta and iliac vessels demonstrate diffuse atherosclerotic changes. The anterior abdominal wall is intact. Osseous structures appear unremarkable. The uterus is surgically absent. IMPRESSION: 1. No acute process seen in CT of abdomen and pelvis without intravenous contrast 2. In the right adnexal region there is a cystic structure measuring 5.9 x 3.9 cm 3. Fecal stasis impaction seen in the rectal vault CT was performed with one or more following dose reduction techniques: automated exposure control, adjustment of the mA and kv according to patient's size, or use of a iterative reconstruction technique. DICTATED BY: RENA MADDOX MD DATE: 01/22/25 1044 ELECTRONICALLY SIGNED BY: RENA MADDOX MD DATE: 01/22/25 1051 PATIENT: JUSTIN KLINE MR#: [id number] : 1955 SEX: F AGE: 70 LOCATION: [facility] ORDER 8 STATUS: REG REPORT#: [id number] SERVICE REASON: gi bleed ORDERING PHYSICIAN: JULISA PETERSON MD PROCEDURE: ABD PEL WO - CT ABDOMEN/PELVIS W/O CONTRAST CT ABDOMEN/PELVIS W/O CONTRAST REASON: gi bleed COMPARISON: None. FINDINGS: Lung bases are clear. There is a small left-sided pleural effusion. There is coronary calcifications suggesting coronary artery disease. There is suggestion of small pericardial effusion. There is a moderate size hiatal hernia. . There are no focal liver lesions. There are normal-appearing kidneys.. Spleen and pancreas appear unremarkable. The gallbladder appears normal as well. There is a feeding gastrostomy tube in place. Bowel loops appear unremarkable. This includes normal appearance of the appendix . There is fecal stasis in the rectal vault. Abutting the right lobe of the bowel in the right lower quadrant and abutting the right psoas muscle there is a a cystic structure measuring 5.9 x 3.9 cm. There is no evidence of free fluid or intraperitoneal air. There are no focal fluid collections. The retroperitoneum appear normal as do pelvic soft tissue structures. Aorta and iliac vessels demonstrate diffuse atherosclerotic changes. The anterior abdominal wall is intact. Osseous structures appear unremarkable. The uterus is surgically absent. IMPRESSION: 1. No acute process seen in CT of abdomen and pelvis without intravenous contrast 2. In the right adnexal region there is a cystic structure measuring 5.9 x 3.9 cm 3. Fecal stasis impaction seen in the rectal vault CT was performed with one or more following dose reduction techniques: automated exposure control, adjustment of the mA and kv according to patient's size, or use of a iterative reconstruction technique. DICTATED BY: RENA MADDOX MD DATE: 01/22/25 104 ELECTRONICALLY SIGNED BY: RENA MADDOX MD DATE: 01/22/25 105 PATIENT: JUSTIN KLINE MR#: [id number] : 1955 SEX: F AGE: 70 LOCATION: [facility] ORDER 9 STATUS: [facility] REPORT#: [id number] SERVICE 7 REASON: cp ORDERING PHYSICIAN: JULISA PETERSON MD PROCEDURE: CXR1VW - CHEST 1VW EXAM: Chest radiograph 1 view HISTORY: Chest pain COMPARISON: None FINDINGS: No pulmonary consolidations. No pleural effusion or pneumothorax. Enlarged cardiac silhouette. Tortuous calcified aorta. No overt congestion. Degenerative changes. IMPRESSION: No acute cardiopulmonary disease. /[place] DICTATED BY: DESTINY CASTELLANOS MD DATE: 01/22/251058 ELECTRONICALLY SIGNED BY: DESTINY CASTELLANOS MD DATE: 01/22/25 105 ASSESSMENT: Acute renal failure Anemia Septic shock requiring pressors, POA Acute metabolic encephalopathy POA Acute Hypoxic rep failure requiring intubation for airway protection POA Acute complicated cystitis POA Acute on chronic anemia 2/ GI Bleed (Hematemesis) POA Hyperglycemia in the presence of type 2 diabetes mellitus, POA right adnexal region there is a cystic structure measuring 5.9 x 3.9 cm Thrombocytosis Hypokalemia Electrolyte derangement (hypokalemia, hypocalcemia) severe Hypoalbuminemia Malnutrition Transaminitis Elevated TSH suspected myxedema Uncontrolled type 2 diabetes mellitus Essential hypertension Anemia Prior history of CVA Right [id number] amputation G-tube in situ Bed ridden Recent hospitalization [facility] for hematemesis PLAN: Labs, diagnostic, radiologic exams reviewed and interpreted by myself and supervising physician. We have reviewed external records in detail Require close monitoring of renal function and electrolytes Order CBC, CMP, and electrolytes in am Continue with antibiotics Renal diabetic diet BiPAP as necessary, for respiratory distress IV pressors as needed Monitor blood pressure adjust medication doses as needed Avoid hypotensive episodes May use Dilaudid 0.5 mg IV every 6 hours as needed for severe pain Monitor blood sugars Strict intake, output, and daily weight should be monitored Please renally adjust medications Avoid nephrotoxic and nonsteroidal drugs Avoid contrast if possible Will continue to monitor renal function, anemia, electrolytes Treatment plan discussed with patient Questions were answered We have discussed with the other team physicians in detail about the care plan We will continue to monitor the patient closely Total critical care time spent with patient, nursing staff, critical care team over 35 minutes ATTESTATION BY PHYSICIAN I have seen and examined the patient. I reviewed the documentation, medical decision making, and treatment plan as noted by the mid-level provider above. I agree with the findings and plan of care. CHRISTELLE SIMENTAL MD, [facility] Jan 24, 2025 13:03
[2025-01-24] MEDS: ALBUMIN (HUMAN) 25% 50 ML IV SCH (13:27)
[2025-01-24] MEDS: BUMETANIDE 1MG/4ML VIAL IVP PRN (13:28)
--- NOTE | 2025-01-24 15:03 | NUR ---
SPEECH TRIGGER COMPLETED / INTUBATION Pt IS A 70 Y.O. FEMALE ADMITTED SECONDARY TO HEMATEMESIS AND HEMORRHAGIC SHOCK. Pt HAS A PAST MEDICAL HISTORY SIGNIFICANT FOR CVA; DM TYPE 2; HTN; ANEMIA; R BELOW KNEE AMPUTATION; PEG TUBE PLACEMENT 2 WEEKS AGO AT [facility]. PER H&P REPORT, PATIENT/FAMILY REPORTING PATIENT ABLE TO SWALLOW BETTER NOW. HIGHLY RECOMMEND REPEATING MBSS PRIOR TO ANY ORAL INTAKE. Pt CURRENTLY INTUBATED AND ON PEG TUBE FEEDINGS. PLEASE REQUEST SPEECH THERAPY SERVICES FOR SKILLED BEDSIDE SWALLOW EVALUATION 24 HOURS POST EXTUBATION IF PATIENT/FAMILY WANT TO FEED PATIENT BY MOUTH. SUPERVISOR BRAKE REPAIR COORDINATED WITH NURSE MADDEN. ALL QUESTIONS ANSWERED AT THIS TIME. Addendum: 01/24/[address] [facility]ALF RIVERA Amended: Links added.
--- NOTE | 2025-01-24 15:54 | NUR ---
NURSING NOTE 1420: DR. ZAMORA MADE AWARE OF PRELIMINARY REPORT RELAYED BY [facility], PATIENT APPEARS TO HAVE SUBCLAVIAN, AXILLARY, AND BASILLIC VEIN DVT. ORDERED TO INQUIRE WITH GI FOR CLEARANCE ON ANTICOAGULATION . 1445: PER GI SERVICE DR. DIEHL / ELECTRICAL SUPERVISOR RACHID; WAIT 48 HOURS BEFORE STARTING ANY ANTICOAGULATION CONTINUE TO MONITOR H&H AND PROTONIX DRIP. INCREASE CARAFATE TO 1GRAM QID. 1530: KARL RODRIGUEZ NP WITH [facility] UPDATED ON PATIENT CONDITION. RESPIRATORY... CPAP TRIALS ATTEMPTED FROM [id number] PATIENT DID NOT TOLERATE.
--- NOTE | 2025-01-24 16:01 | NUR ---
DCP:HOME SW spoke with Marcial Wilhelm [phone]. Pt does have a hospital bed, lift, walker, and wheelchair at home. As per she previously had a nurse from [facility] however when she started to go into the hospitals the services "stopped". Pt does require assistance in completing ADLs and or daughter have been the ones to assist. PCP is Antony Boyer and uses [facility] for any RX needs. At [place] pt will want to go home and family can assist with transportation. Addendum: 01/24/25 at 1606 by PATTI SHORE SS Amended: Links added.
--- NOTE | 2025-01-24 16:13 | CONS ---
GASTROENTEROLOGY CONSULTATION NOTE Date of Consultation: Jan 24, 2025 Time of Consultation: 16:03 History of Present Illness: [70 yo female patient with past medical history for seizures, hypertension, CVA, BKA, who presented to ER with hematemesis. Patient had [facility] and had had an EGD in December [facility] d/t hematemesis where she was found to have Grade D esophagitis. We were consulted for Hematemesis. Patient underwent an EGD on 01/23/25 and was found to have a non-bleeding tear was found in the lower third of esophagus. Large clot. No active bleeding. LA Grade D esophagitis. Diffuse moderately erythematous mucosa without bleeding in the stomach. A gastric tube was found in gastric body. Patient's WBC of 14.4, hemoglobin of 6.6, patient received 1 unit of PRBC and hemoglobin trended up to 7.1, hematocrit 21.7, platelets 367. Chemistry significant for chloride of 113, BUN 39, creatinine 2.4, glucose 153, calcium 7.0, iron 28, TIBC 44, 63.6% saturation, ferritin 1612. Total bilirubin, AST, ALT, alkaline phosphatase are normal. Total protein of 4.6, albumin 0.9. TSH 7.62. Troponin 507. Patient was found to have DVTs of the upper extremities. We were consulted for anticoagulant recommendations. Review of Systems: Unable to completed d/t patient's status Past Medical History: Diabetes mellitus type 2, hypertension, anemia, history of CVA history of right below-knee amputation PAST SURGICAL HISTORY: Right below-knee amputation History of PEG tube placement PAST SOCIAL HISTORY: Unable to obtain FAMILY HISTORY: Unable to obtain Coded Allergies: No Known Drug Allergies (Unverified Allergy, Unknown, 01/22/25) Coded Allergies: No Known Drug Allergies (Unverified Allergy, Unknown, 01/22/25) Physical Exam: GEN: Intubated and sedated HEENT:Oral pharyngeal mucosa is moist and within normal limits. CHEST: Lung auscultation revealed normal breath sounds bilaterally. CARDIAC:Heart sounds are regular. ABD: Soft, non-tender and not distended. Peg tube in place. EXT: Right BKA NEURO: Intubated and sedated. Vital Sign (Last 24 Hours) 01/23/25 01/24/25 01/24/25 01/24/25 08:14 12:00 12:45 15:38 Pulse 95 Resp 14 B/P (MAP) 106/56 (73) Pulse Ox 100 O2 Delivery Ventilator+ O2 Flow Rate 10.0 FiO2 30 Intake & Output (last 24hrs) 01/23/25 01/23/25 01/24/25 15:00 23:00 07:00 Intake Total 628.3 ml 609.5 ml 272.9 ml Output Total 100 ml 20 ml 20 ml Balance 528.3 ml 589.5 ml 252.9 ml Laboratory: [ ] Laboratory: Test 01/24/25 14:43 01/24/25 12:10 01/24/25 11:50 01/24/25 07:36 Range/Units Hemoglobin 7.1 L 12.0-16.0 g/dL Hematocrit 21.7 L 36-48 % Whole Blood Glucose 154 H 70-110 MG/DL Urine Color YELLOW YELLOW Urine Appearance TURBID H CLEAR Urine pH 5.5 5.0-8.0 Urine Specific [place] 1.024 1.001-1.031 Urine Protein >=300 H NEGATIVE mg/dL Urine Glucose (UA) NEGATIVE NEGATIVE mg/dL Urine Ketones 5 H NEGATIVE mg/dL Urine Occult Blood MODERATE H NEGATIVE Urine Nitrate NEGATIVE NEGATIVE Urine Bilirubin NEGATIVE NEGATIVE mg/dL Urine Urobilinogen 0.2 0.2-1.0 mg/dL Urine Leukocyte Esterase MODERATE H NEGATIVE Sunitha/uL Urine RBC 6-10 H 0-1 /HPF Urine WBC TNTC H 0-1 /HPF Urine Squamous Epithelial Cells Few 0-2 /HPF Urine Bacteria Rare None Seen /HPF Urine Yeast Few H None Seen /HPF Urine Random Sodium 43 40-220 mmol/l Urine Random Potassium 36 25-125 mmol/L Urine Random Chloride 40 L 110-250 mmol/L Lactic Acid Level 1.4 0.8-2.5 mmol/L Test 01/24/25 07:01 01/24/25 05:50 01/24/25 04:05 01/23/25 17:51 Range/Units White Blood Count 14.4 #H 4.8-10.8 K/uL Red Blood Count 2.25 L 4.00-5.50 MIL/uL Mean Corpuscular Volume 87.6 79-99 fL Mean Corpuscular Hemoglobin 29.3 27.0-33.0 pg Mean Corpuscular Hemoglobin Concent 33.5 32.0-36.0 g/dL Red Cell Distribution Width 17.7 H 11.0-15.5 % Platelet Count 367 130-400 K/uL Mean Platelet Volume 10.5 7.5-10.5 fL Immature Granulocyte % (Auto) 1.0 0-1 % Neutrophils (%) (Auto) 77.1 H 40.0-77.0 % Lymphocytes (%) (Auto) 13.8 L 21.0-51.0 % Monocytes (%) (Auto) 7.1 3.0-13.0 % Eosinophils (%) (Auto) 0.2 0.0-8.0 % Basophils (%) (Auto) 0.8 0.0-5.0 % Neutrophils # (Auto) 11.1 H 1.8-7.7 K/uL Lymphocytes # (Auto) 2.0 1.0-4.8 K/uL Monocytes # (Auto) 1.0 0.1-1.0 K/uL Eosinophils # (Auto) 0.03 0.00-0.70 K/uL Basophils # (Auto) 0.11 0.00-0.20 K/uL Absolute Immature Granulocyte (auto 0.14 0-1 K/uL Nucleated Red Blood Cells 0.0 0.0-0.19 % Sodium Level 144 136-145 mmol/L Potassium Level 3.5 3.5-5.1 mmol/L Chloride Level 113 H 101-111 mmol/L Carbon Dioxide Level 23 21-32 mmol/L Blood Urea Nitrogen 39 H 7-18 mg/dL Creatinine 2.4 H 0.5-1.0 mg/dL Glomerular Filtration Rate Calc 21 >90 mL/min Random Glucose 153 H 70-105 mg/dL Uric Acid 6.8 2.6-7.2 mg/dL Total Calcium 7.0 L 8.5-10.1 mg/dL Phosphorus Level 4.1 2.5-4.9 mg/dL Magnesium Level 2.20 1.80-2.40 mg/dL Iron Level 28 L 50-170 mcg/dL Total Iron Binding Capacity 44 L 250-450 mcg/dL Percent Iron Saturation 63.6 H 22-44 % Ferritin 1612 H 15-150 ng/mL Total Bilirubin 0.3 0.2-1.0 mg/dL Aspartate Amino Transf (AST/SGOT) 33 10-37 U/L Alanine Aminotransferase (ALT/SGPT) 13 12-78 U/L Alkaline Phosphatase 128 50-136 U/L Total Protein 4.6 L 6.0-8.3 g/dL Albumin 0.9 L 3.5-5.0 g/dL Thyroid Stimulating Hormone (TSH) 7.62 #H 0.36-3.74 uIU/mL Blood Gas Specimen Type Arterial Arterial Blood pH 7.425 7.350-7.450 Arterial Blood Partial Pressure CO2 32 32-45 mmHg Arterial Blood Partial Pressure O2 129.8 H 83.0-108.0 mmHg Arterial Blood HCO3 20.7 L 21.0-28.0 mmol/L Arterial Blood Oxygen Saturation 98.3 H 94.0-98.0 % Arterial Blood Base Excess -3.3 L -2.0-3.0 mmol/L Hemoglobin (Blood Gas) 7.6 L 12.0-16.0 g/dL Sodium (Blood Gas) 140 136-145 MMOL/L Bedside Potassium (Blood Gas) 3.4 3.4-4.5 MMOL/L Bedside Chloride (Blood Gas) 113 H 98-107 MMOL/L Bedside Glucose (Blood Gas) 154 H 65-95 MG/DL Bedside Ionized Calcium (Blood Gas) 1.10 L 1.15-1.33 MMOL/L Bedside Lactic Acid (Blood Gas) 1.41 H 0.36-0.75 MMOL/L Blood Gas Temperature 37.0 35.5-37.0 CELSIUS Blood Gas Respiration Rate 14.0 min. Blood Gas Vent Mode AC ROOM AIR FiO2 30.0 % Blood Gas Tidal Volume 400 ml Blood Gas PEEP 5 cm H2O Blood Gas Specimen Comment LR,TONY PEREZ Troponin I High Sensitivity 507 *H 4-50 ng/L Test 01/23/25 11:27 01/23/25 05:50 Range/Units Total Creatine Kinase 57 21-232 U/L Procalcitonin 3.72 H 0.05-0.5 ng/mL Free Thyroxine (T4) Direct 0.67 L 0.76-1.46 ng/dL Free Triiodothyronine (T3) pg/mL 0.76 L 2.18-3.98 pg/mL Current Medications Medications (Trade) Dose Ordered Sig/Arik Route PRN Reason Start Time Stop Time Status Last Admin Dose Admin Albumin Human 50 ml @ 0 mls/hr Q8H6 IV 01/24/25 14:00 01/24/25 22:00 01/24/25 13:27 50 MLS/HR Artificial Tears (Artificial Tears) 1 DROP OR AD Q8H OU 01/23/25 19:30 02/22/25 19:29 01/24/25 12:13 1 DROP Bumetanide (Bumex 1mg Vial) 1 mg ONCE PRN IVP AFTER TRANSFUSION 01/24/25 08:00 01/24/25 09:23 DC Bumetanide (Bumex 1mg Vial) 2 mg ONCE PRN IVP AFTER TRANSFUSION 01/24/25 14:00 01/24/25 14:00 DC 01/24/25 13:28 2 MG Cefepime HCl (MAXipime 2 gm vial) 2 gm Q24H IVPB 01/23/25 12:00 02/02/25 11:59 01/24/25 12:13 2 GM Ceftriaxone Sodium (ROCEphine 1G INJ) 1 gm Q24H IVPB 01/22/25 12:00 01/22/25 16:25 DC 01/22/25 14:18 1 GM Chlorhexidine Gluconate (Peridex) 15 ml TID MM 01/23/25 21:00 02/06/25 20:59 01/24/25 13:28 15 ML Dextrose (D50w) 50 ml AD PRN IV HYPOGLYCEMIA PROTOCOL 01/22/25 15:30 02/21/25 15:29 Fentanyl Citrate 100 ml @ 2.5 mls/hr PROTOCOL IV 01/22/25 12:00 01/22/25 11:55 DC Fentanyl Citrate 100 ml @ 2.5 mls/hr PROTOCOL IV 01/22/25 12:00 01/29/25 11:59 01/24/25 06:59 2.5 MLS/HR Glucagon (Glucagon 1mg Kit) 1 mg AD PRN IM HYPOGLYCEMIA PROTOCOL 01/22/25 15:30 02/21/25 15:29 Insulin Human Regular (humuLIN R 100 UNIT/ML 3ML) INSULIN SLIDING SCAL... ACHS SQ 01/22/25 21:00 02/21/25 20:59 01/23/25 12:20 2 UNIT Levetiracetam (kepPRA 500 MG TABLET) 500 mg BID PO 01/22/25 21:00 01/22/25 22:13 DC Levetiracetam 500 mg/Sodium Chloride 100 ml @ 400 mls/hr Q12H9 IV 01/22/25 22:00 02/21/25 21:59 01/24/25 09:17 400 MLS/HR Levothyroxine Sodium (SYNTHroid VIAL 100MCG) 100 mcg SYN IV 01/23/25 06:30 02/22/25 06:29 01/24/25 05:34 100 MCG Linezolid 300 ml @ 150 mls/hr Q12H IV 01/24/25 08:00 02/03/25 07:59 01/24/25 09:15 150 MLS/HR Magnesium Sulfate 50 ml @ 0 mls/hr PROTOCOL PRN IV Hypomagnesemia 01/22/25 15:30 02/21/25 15:29 01/23/25 09:56 0 MLS/HR Metronidazole/ Sodium Chloride 100 ml @ 100 mls/hr Q8H6 IVPB 01/22/25 22:00 02/01/25 21:59 01/24/25 13:27 100 MLS/HR Midazolam HCl 50 ml @ 0 mls/hr PROTOCOL IV 01/22/25 12:00 01/29/25 11:59 01/22/25 20:51 1 MLS/HR Norepinephrine 250 ml @ 0 mls/hr PROTOCOL IV 01/22/25 10:00 01/23/25 09:52 DC 01/22/25 14:24 60 MLS/HR Norepinephrine Bitartrate (Norepineph 16 Mg/250ml NS Premix) per protocol PROTOCOL IV 01/23/25 10:00 02/22/25 09:59 01/23/25 23:50 16 MG Octreotide Acetate 1250 mcg/ Sodium Chloride 250 ml @ 0 mls/hr PROTOCOL IV 01/22/25 12:30 01/22/25 12:17 DC Octreotide Acetate 1250 mcg/ Sodium Chloride 250 ml @ 0 mls/hr PROTOCOL IV 01/22/25 12:30 01/24/25 09:23 DC 01/22/25 12:41 5 MLS/HR Pantoprazole Sodium (PROTonix 40MG INJ) 40 mg BID IVP 01/24/25 21:00 01/24/25 15:02 DC Pantoprazole Sodium 80 mg/ Sodium Chloride 100 ml @ 10 mls/hr Q10H IV 01/22/25 09:00 01/24/25 09:23 DC 01/24/25 09:17 10 MLS/HR Pantoprazole Sodium 80 mg/ Sodium Chloride 100 ml @ 10 mls/hr Q10H IV 01/24/25 15:00 02/23/25 14:59 01/24/25 15:30 10 MLS/HR Pharmacy Profile Note (Pharmacy Communication) 1 each ONCE MISC 01/22/25 12:00 01/22/25 11:53 DC Pharmacy Profile Note (Pharmacy Communication) 1 each ONCE MISC 01/22/25 12:00 01/22/25 11:53 DC Pharmacy Profile Note (Pharmacy Communication) 1 each ONCE MISC 01/23/25 13:00 01/23/25 13:09 DC Pharmacy Profile Note (Pharmacy Communication) 1 each ONCE MISC 01/24/25 08:00 01/24/25 07:51 DC Phenylephrine HCl 100 mg/Sodium Chloride 250 ml @ 0 mls/hr AD PRN IV TITRATE 01/22/25 17:00 02/21/25 16:59 01/23/25 09:30 0 MLS/HR Potassium Chloride 100 ml @ 50 mls/hr AD PRN IV POTASSIUM PROTOCOL 01/22/25 15:30 01/24/25 07:50 DC Potassium Chloride 100 ml @ 100 mls/hr AD PRN IV POTASSIUM PROTOCOL 01/22/25 15:30 02/21/25 15:29 01/23/25 08:18 100 MLS/HR Potassium Chloride (K-Dur/Klor-Con 20meq) 20 meq AD PRN PO POTASSIUM PROTOCOL 01/22/25 15:30 02/21/25 15:29 Potassium Chloride (KCl 10% Elixir 20meq/15ml) 20 meq AD PRN PO POTASSIUM PROTOCOL 01/22/25 15:30 02/21/25 15:29 Propofol (DIPRivan 1000MG/ 100ML) 1,000 mg PROTOCOL PRN IV SEDATION 01/22/25 12:00 01/22/25 11:55 DC Sodium Chloride 1,000 ml @ 150 mls/hr Q6H40M IV 01/22/25 12:00 01/23/25 10:56 DC 01/23/25 02:45 150 MLS/HR Sucralfate (Carafate) 1 gm BID PO 01/23/25 21:00 01/23/25 11:41 DC Sucralfate (Carafate) 1 gm QID PO 01/24/25 17:00 02/23/25 16:59 Sucralfate (Carafate) 1 gm TID PO 01/23/25 14:00 01/24/25 15:02 DC 01/24/25 13:28 1 GM Thiamine HCl 100 mg/Sodium Chloride 50 ml @ 100 mls/hr Q24H IV 01/23/25 14:00 01/25/25 14:29 01/24/25 13:28 100 MLS/HR Vancomycin HCl (Vancomycin 750mg) 750 mg Q24H IVPB 01/23/25 17:00 01/23/25 10:56 DC Vancomycin HCl (Vancomycin Protocol) 1 each AD IV 01/22/25 15:00 01/23/25 10:56 DC Diagnostics / Radiology: [COPY/PASTE HERE IF NO REPORTS PLEASE DELETE SECTION] Assessment: [Acute blood loss anemia LA grade D esophageal varices Esophageal tear ] Plan: Case discussed with Dr. Branch [Recommend trending hgb every 6 hours and transfuse as needed to goal HGB>7 Protonix drip for the next 48 hours, then protonix 40mg IV bid. Carafate 1 gram po qid. Recommend anticoagulant therapy after 48 hours of PPI. Please call with questions, concerns, and change in clinical status and any s/s of any overt GI bleeding. Thank you for this consult. ] HORACIO RASHID NP Jan 24, 2025 16:13
--- NOTE | 2025-01-24 16:42 | NUR ---
NURSING NOTE DR. JAVIER BENSON ROUND ON PATIENT. NO HEPARIN DRIP.
[2025-01-24] MEDS: SUCRALFATE 1 GM TABLET PO SCH (17:20)
--- NOTE | 2025-01-24 17:30 | NUR ---
NURSING NOTE PER ASSISTANT LIBRARIAN, PENDING ARRIVAL OF [facility] FOR GI BLEED SCAN. WILL CALL WHEN AVAILABLE.
--- NOTE | 2025-01-24 18:04 | PN ---
[facility] PROGRESS NOTE Date of Service: Jan 24, 2025 Time of Service: 17:42 SUBJECTIVE: 70-year-old female with past medical history of diabetes mellitus type 2, hypertension, anemia, history of CVA, history of right below-knee amputation who presented to the hospital secondary to hematemesis. Patient is currently intubated and sedated. The patient's history is mostly obtained from patient's who is present at bedside and from ED provider. The patient was noted to have black colored vomit at home which started yesterday. She has a history of peptic ulcer disease. She also has a PEG tube placed around two weeks ago. Peg tube was placed in [facility]. Per patient is able to swallow better now. denied any fever, chills, shortness for breath, chest pain. History is fairly limited at this time as patient is not able to participate in conversation. Labs were Notable for white count of 9.1, hemoglobin was 9.1, MCV was 86.7, platelet count was 456 K, sodium was 138, potassium was 3.1, bicarb was , creatinine was 1.7, glucose was 234, alk-phos was 153, total protein was 5.0, albumin was 0.9, lipase was negative normal Underwent a CT abdomen pelvis which showed no acute process in the CT abdomen without IV contrast. Patient was noted to have cystic structure in the right adrenal region measuring 5.9 x 3.9 cm. The patient also had fecal impaction noted. In the ED patient had episode of hematemesis and she was intubated for airway protection by ED provider. 01/23/2025: The patient is examined at the bedside. She was sedated and not responsive during my visit. GI performed EGD in the morning and they have observed no active bleeding. Nurse notified an unstageable wound on sacrum for which Wound consult is placed today. We will be manage as per critical Care recommendations. 01/24/2025: The patient is examined at the bedside. She was sedated and not responsive during my visit. Her arms are swollen. Her vitals are normal except for blood pressure is 97/51. Her labs are in the normal range except for Hb is 6.6, chloride is 113, BUN is 39, creatinine is 2.4, iron is 28, TIBC is 44, % saturation is 63.6, TSH is 7.62. Her urine culture grew 10,000-50,000 CFU. Identification and susceptibility are in process. Blood culture show no growth after 48 hours. Renal ultrasound show renal parenchymal disease. As her hemoglobin is low she received a blood transfusion. After the transfusion her hemoglobin is 7.1. We ordered a bilateral upper limb doppler which showed evidence of DVT. Gastroenterology was consulted to give recommendations on starting anticoagulation. GI recommended high dose Protonix drip for 48 hours and carafate 1gm PO QID, after 48 hours start heparin drip. IR was called to ask about the option of placing an SVC filter, and they recommended mechanical thrombectomy. The patient is not a good candidate for an SVC filter. A urinalysis, urine electrolytes, urine protein were ordered today. Urinalysis showed turbid urine, protein >300, ketones 5, moderate occult blood, moderate leukocyte esterase, RBC 6 to 10, WBC is TNTC, protein 410.9, sodium is 43, potassium is 36, chloride is 40. REVIEW OF SYSTEMS Unable to obtain as patient is sedated PHYSICAL EXAM GENERAL APPEARANCE: He is currently intubated and sedated NEUROLOGICAL: Cranial nerves II-XII grossly intact. Motor is 5/5 in bilateral upper and lower extremities proximal to distal. No sensory deficits. HEENT: Face is symmetric. Pupils are equal and reactive. Extraocular movements are intact. NECK: Supple. No JVD. No thyromegaly. No submental, submandibular, pre- /postauricular, occipital or supraclavicular lymphadenopathy. CHEST: Normal chest expansion. No Telemetry. LUNGS: Absence of any rales, rhonchi or any wheezing. CARDIOVASCULAR: Regular. S1 and S2 normal. No appreciable rubs, murmurs or gallops. ABDOMEN: Soft, nontender, and nondistended. There is no rebound, voluntary g uarding, or rigidity. Patient has a PEG tube in place : Deferred. No Kamara. EXTREMITIES: Below-knee amputation of the right lower extremity SKIN: No skin breakdown. Vital Signs (last 8hr) Date Time Temp Pulse Resp B/P (MAP) Pulse Ox O2 Delivery O2 Flow Rate FiO2 01/24/25 16:15 94 14 97/51 (66) 100 01/24/25 16:00 98.2 01/24/25 16:00 94 12 96/51 (66) 100 01/24/25 16:00 100 Ventilator+ 30 01/24/25 15:45 94 12 85/47 (60) 100 01/24/25 15:38 95 30 01/24/25 15:30 94 12 79/49 (59) 100 01/24/25 15:15 96 14 100/53 (69) 100 01/24/25 15:00 96 14 119/60 (79) 100 01/24/25 14:45 96 30 01/24/25 14:45 100 14 130/64 (86) 100 01/24/25 14:30 95 14 107/57 (74) 100 01/24/25 14:15 95 14 100/55 (70) 100 01/24/25 14:00 97 14 113/65 (81) 100 01/24/25 13:45 97 14 123/56 (78) 100 01/24/25 13:30 96 14 121/60 (80) 100 01/24/25 13:15 93 14 111/55 (73) 100 01/24/25 13:00 93 14 107/53 (71) 100 01/24/25 12:45 94 14 106/56 (73) 100 01/24/25 12:30 95 14 113/54 (73) 100 01/24/25 12:15 93 14 106/56 (73) 100 01/24/25 12:00 91 30 01/24/25 12:00 98.4 01/24/25 12:00 93 14 112/63 (79) 100 01/24/25 12:00 100 Ventilator+ 30 01/24/25 11:45 92 14 115/58 (77) 100 01/24/25 11:30 91 14 110/54 (72) 100 01/24/25 11:15 93 14 106/55 (72) 100 01/24/25 11:00 94 14 112/57 (75) 100 01/24/25 10:45 93 14 96/53 (67) 100 01/24/25 10:30 95 14 109/55 (73) 100 01/24/25 10:15 93 14 98/55 (69) 100 01/24/25 10:00 97 14 110/56 (74) 100 01/24/25 09:45 96 14 103/57 (72) 100 LABS: Laboratory: Test 01/24/25 16:02 01/24/25 14:43 01/24/25 11:50 01/24/25 07:36 Range/Units Whole Blood Glucose 169 H 70-110 MG/DL Hemoglobin 7.1 L 12.0-16.0 g/dL Hematocrit 21.7 L 36-48 % Urine Color YELLOW YELLOW Urine Appearance TURBID H CLEAR Urine pH 5.5 5.0-8.0 Urine Specific [place] 1.024 1.001-1.031 Urine Protein >=300 H NEGATIVE mg/dL Urine Glucose (UA) NEGATIVE NEGATIVE mg/dL Urine Ketones 5 H NEGATIVE mg/dL Urine Occult Blood MODERATE H NEGATIVE Urine Nitrate NEGATIVE NEGATIVE Urine Bilirubin NEGATIVE NEGATIVE mg/dL Urine Urobilinogen 0.2 0.2-1.0 mg/dL Urine Leukocyte Esterase MODERATE H NEGATIVE Sunitha/uL Urine RBC 6-10 H 0-1 /HPF Urine WBC TNTC H 0-1 /HPF Urine Squamous Epithelial Cells Few 0-2 /HPF Urine Bacteria Rare None Seen /HPF Urine Yeast Few H None Seen /HPF Urine Random Sodium 43 40-220 mmol/l Urine Random Potassium 36 25-125 mmol/L Urine Random Chloride 40 L 110-250 mmol/L Lactic Acid Level 1.4 0.8-2.5 mmol/L Test 01/24/25 07:01 01/24/25 05:50 01/24/25 04:05 01/23/25 17:51 Range/Units White Blood Count 14.4 #H 4.8-10.8 K/uL Red Blood Count 2.25 L 4.00-5.50 MIL/uL Mean Corpuscular Volume 87.6 79-99 fL Mean Corpuscular Hemoglobin 29.3 27.0-33.0 pg Mean Corpuscular Hemoglobin Concent 33.5 32.0-36.0 g/dL Red Cell Distribution Width 17.7 H 11.0-15.5 % Platelet Count 367 130-400 K/uL Mean Platelet Volume 10.5 7.5-10.5 fL Immature Granulocyte % (Auto) 1.0 0-1 % Neutrophils (%) (Auto) 77.1 H 40.0-77.0 % Lymphocytes (%) (Auto) 13.8 L 21.0-51.0 % Monocytes (%) (Auto) 7.1 3.0-13.0 % Eosinophils (%) (Auto) 0.2 0.0-8.0 % Basophils (%) (Auto) 0.8 0.0-5.0 % Neutrophils # (Auto) 11.1 H 1.8-7.7 K/uL Lymphocytes # (Auto) 2.0 1.0-4.8 K/uL Monocytes # (Auto) 1.0 0.1-1.0 K/uL Eosinophils # (Auto) 0.03 0.00-0.70 K/uL Basophils # (Auto) 0.11 0.00-0.20 K/uL Absolute Immature Granulocyte (auto 0.14 0-1 K/uL Nucleated Red Blood Cells 0.0 0.0-0.19 % Sodium Level 144 136-145 mmol/L Potassium Level 3.5 3.5-5.1 mmol/L Chloride Level 113 H 101-111 mmol/L Carbon Dioxide Level 23 21-32 mmol/L Blood Urea Nitrogen 39 H 7-18 mg/dL Creatinine 2.4 H 0.5-1.0 mg/dL Glomerular Filtration Rate Calc 21 >90 mL/min Random Glucose 153 H 70-105 mg/dL Uric Acid 6.8 2.6-7.2 mg/dL Total Calcium 7.0 L 8.5-10.1 mg/dL Phosphorus Level 4.1 2.5-4.9 mg/dL Magnesium Level 2.20 1.80-2.40 mg/dL Iron Level 28 L 50-170 mcg/dL Total Iron Binding Capacity 44 L 250-450 mcg/dL Percent Iron Saturation 63.6 H 22-44 % Ferritin 1612 H 15-150 ng/mL Total Bilirubin 0.3 0.2-1.0 mg/dL Aspartate Amino Transf (AST/SGOT) 33 10-37 U/L Alanine Aminotransferase (ALT/SGPT) 13 12-78 U/L Alkaline Phosphatase 128 50-136 U/L Total Protein 4.6 L 6.0-8.3 g/dL Albumin 0.9 L 3.5-5.0 g/dL Thyroid Stimulating Hormone (TSH) 7.62 #H 0.36-3.74 uIU/mL Blood Gas Specimen Type Arterial Arterial Blood pH 7.425 7.350-7.450 Arterial Blood Partial Pressure CO2 32 32-45 mmHg Arterial Blood Partial Pressure O2 129.8 H 83.0-108.0 mmHg Arterial Blood HCO3 20.7 L 21.0-28.0 mmol/L Arterial Blood Oxygen Saturation 98.3 H 94.0-98.0 % Arterial Blood Base Excess -3.3 L -2.0-3.0 mmol/L Hemoglobin (Blood Gas) 7.6 L 12.0-16.0 g/dL Sodium (Blood Gas) 140 136-145 MMOL/L Bedside Potassium (Blood Gas) 3.4 3.4-4.5 MMOL/L Bedside Chloride (Blood Gas) 113 H 98-107 MMOL/L Bedside Glucose (Blood Gas) 154 H 65-95 MG/DL Bedside Ionized Calcium (Blood Gas) 1.10 L 1.15-1.33 MMOL/L Bedside Lactic Acid (Blood Gas) 1.41 H 0.36-0.75 MMOL/L Blood Gas Temperature 37.0 35.5-37.0 CELSIUS Blood Gas Respiration Rate 14.0 min. Blood Gas Vent Mode AC ROOM AIR FiO2 30.0 % Blood Gas Tidal Volume 400 ml Blood Gas PEEP 5 cm H2O Blood Gas Specimen Comment LR,RN ANA Troponin I High Sensitivity 507 *H 4-50 ng/L Test 01/23/25 11:27 01/23/25 05:50 Range/Units Total Creatine Kinase 57 21-232 U/L Procalcitonin 3.72 H 0.05-0.5 ng/mL Free Thyroxine (T4) Direct 0.67 L 0.76-1.46 ng/dL Free Triiodothyronine (T3) pg/mL 0.76 L 2.18-3.98 pg/mL Current Medications Medications (Trade) Dose Ordered Sig/Arik Route PRN Reason Start Time Stop Time Status Last Admin Dose Admin Albumin Human 50 ml @ 0 mls/hr Q8H6 IV 01/24/25 14:00 01/24/25 22:00 01/24/25 13:27 50 MLS/HR Artificial Tears (Artificial Tears) 1 DROP OR AD Q8H OU 01/23/25 19:30 02/22/25 19:29 01/24/25 12:13 1 DROP Bumetanide (Bumex 1mg Vial) 1 mg ONCE PRN IVP AFTER TRANSFUSION 01/24/25 08:00 01/24/25 09:23 DC Bumetanide (Bumex 1mg Vial) 2 mg ONCE PRN IVP AFTER TRANSFUSION 01/24/25 14:00 01/24/25 14:00 DC 01/24/25 13:28 2 MG Cefepime HCl (MAXipime 2 gm vial) 2 gm Q24H IVPB 01/23/25 12:00 02/02/25 11:59 01/24/25 12:13 2 GM Ceftriaxone Sodium (ROCEphine 1G INJ) 1 gm Q24H IVPB 01/22/25 12:00 01/22/25 16:25 DC 01/22/25 14:18 1 GM Chlorhexidine Gluconate (Peridex) 15 ml TID MM 01/23/25 21:00 02/06/25 20:59 01/24/25 13:28 15 ML Dextrose (D50w) 50 ml AD PRN IV HYPOGLYCEMIA PROTOCOL 01/22/25 15:30 02/21/25 15:29 Fentanyl Citrate 100 ml @ 2.5 mls/hr PROTOCOL IV 01/22/25 12:00 01/22/25 11:55 DC Fentanyl Citrate 100 ml @ 2.5 mls/hr PROTOCOL IV 01/22/25 12:00 01/29/25 11:59 01/24/25 06:59 2.5 MLS/HR Glucagon (Glucagon 1mg Kit) 1 mg AD PRN IM HYPOGLYCEMIA PROTOCOL 01/22/25 15:30 02/21/25 15:29 Insulin Human Regular (humuLIN R 100 UNIT/ML 3ML) INSULIN SLIDING SCAL... ACHS SQ 01/22/25 21:00 02/21/25 20:59 01/23/25 12:20 2 UNIT Levetiracetam (kepPRA 500 MG TABLET) 500 mg BID PO 01/22/25 21:00 01/22/25 22:13 DC Levetiracetam 500 mg/Sodium Chloride 100 ml @ 400 mls/hr Q12H9 IV 01/22/25 22:00 02/21/25 21:59 01/24/25 09:17 400 MLS/HR Levothyroxine Sodium (SYNTHroid VIAL 100MCG) 100 mcg SYN IV 01/23/25 06:30 02/22/25 06:29 01/24/25 05:34 100 MCG Linezolid 300 ml @ 150 mls/hr Q12H IV 01/24/25 08:00 02/03/25 07:59 01/24/25 09:15 150 MLS/HR Magnesium Sulfate 50 ml @ 0 mls/hr PROTOCOL PRN IV Hypomagnesemia 01/22/25 15:30 02/21/25 15:29 01/23/25 09:56 0 MLS/HR Metronidazole/ Sodium Chloride 100 ml @ 100 mls/hr Q8H6 IVPB 01/22/25 22:00 02/01/25 21:59 01/24/25 13:27 100 MLS/HR Midazolam HCl 50 ml @ 0 mls/hr PROTOCOL IV 01/22/25 12:00 01/29/25 11:59 01/22/25 20:51 1 MLS/HR Norepinephrine 250 ml @ 0 mls/hr PROTOCOL IV 01/22/25 10:00 01/23/25 09:52 DC 01/22/25 14:24 60 MLS/HR Norepinephrine Bitartrate (Norepineph 16 Mg/250ml NS Premix) per protocol PROTOCOL IV 01/23/25 10:00 02/22/25 09:59 01/23/25 23:50 16 MG Octreotide Acetate 1250 mcg/ Sodium Chloride 250 ml @ 0 mls/hr PROTOCOL IV 01/22/25 12:30 01/22/25 12:17 DC Octreotide Acetate 1250 mcg/ Sodium Chloride 250 ml @ 0 mls/hr PROTOCOL IV 01/22/25 12:30 01/24/25 09:23 DC 01/22/25 12:41 5 MLS/HR Pantoprazole Sodium (PROTonix 40MG INJ) 40 mg BID IVP 01/24/25 21:00 01/24/25 15:02 DC Pantoprazole Sodium 80 mg/ Sodium Chloride 100 ml @ 10 mls/hr Q10H IV 01/22/25 09:00 01/24/25 09:23 DC 01/24/25 09:17 10 MLS/HR Pantoprazole Sodium 80 mg/ Sodium Chloride 100 ml @ 10 mls/hr Q10H IV 01/24/25 15:00 02/23/25 14:59 01/24/25 15:30 10 MLS/HR Pharmacy Profile Note (Pharmacy Communication) 1 each ONCE MISC 01/22/25 12:00 01/22/25 11:53 DC Pharmacy Profile Note (Pharmacy Communication) 1 each ONCE MISC 01/22/25 12:00 01/22/25 11:53 DC Pharmacy Profile Note (Pharmacy Communication) 1 each ONCE MISC 01/23/25 13:00 01/23/25 13:09 DC Pharmacy Profile Note (Pharmacy Communication) 1 each ONCE MISC 01/24/25 08:00 01/24/25 07:51 DC Phenylephrine HCl 100 mg/Sodium Chloride 250 ml @ 0 mls/hr AD PRN IV TITRATE 01/22/25 17:00 02/21/25 16:59 01/23/25 09:30 0 MLS/HR Potassium Chloride 100 ml @ 50 mls/hr AD PRN IV POTASSIUM PROTOCOL 01/22/25 15:30 01/24/25 07:50 DC Potassium Chloride 100 ml @ 100 mls/hr AD PRN IV POTASSIUM PROTOCOL 01/22/25 15:30 02/21/25 15:29 01/23/25 08:18 100 MLS/HR Potassium Chloride (K-Dur/Klor-Con 20meq) 20 meq AD PRN PO POTASSIUM PROTOCOL 01/22/25 15:30 02/21/25 15:29 Potassium Chloride (KCl 10% Elixir 20meq/15ml) 20 meq AD PRN PO POTASSIUM PROTOCOL 01/22/25 15:30 02/21/25 15:29 Propofol (DIPRivan 1000MG/ 100ML) 1,000 mg PROTOCOL PRN IV SEDATION 01/22/25 12:00 01/22/25 11:55 DC Sodium Bicarbonate (Sodium Bicarbonate) 650 mg BID PO 01/24/25 21:00 02/23/25 20:59 Sodium Chloride 1,000 ml @ 150 mls/hr Q6H40M IV 01/22/25 12:00 01/23/25 10:56 DC 01/23/25 02:45 150 MLS/HR Sucralfate (Carafate) 1 gm BID PO 01/23/25 21:00 01/23/25 11:41 DC Sucralfate (Carafate) 1 gm QID PO 01/24/25 17:00 02/23/25 16:59 01/24/25 17:20 1 GM Sucralfate (Carafate) 1 gm TID PO 01/23/25 14:00 01/24/25 15:02 DC 01/24/25 13:28 1 GM Thiamine HCl 100 mg/Sodium Chloride 50 ml @ 100 mls/hr Q24H IV 01/23/25 14:00 01/25/25 14:29 01/24/25 13:28 100 MLS/HR Vancomycin HCl (Vancomycin 750mg) 750 mg Q24H IVPB 01/23/25 17:00 01/23/25 10:56 DC Vancomycin HCl (Vancomycin Protocol) 1 each AD IV 01/22/25 15:00 01/23/25 10:56 DC DIAGNOSTICS / RADIOLOGY: [ ] ASSESSMENT: Hematemesis POA Hemorrhagic shock Acute hypoxic respiratory failure status post intubation for airway protection Peg tube placement Peptic ulcer disease DVT of bilateral upper limbs Unstageable wound on sacrum Fecal impaction Obesity BMI 36.6 fecal impaction Knee injury versus underlying CKD Diabetes mellitus type 2 with associated hyperglycemia Severe hypoalbuminemia Hypertension Debility Small pericardial Effusion Left-sided pleural effusion PLAN: Hematemesis, peptic ulcer disease, POA - patient to be admitted to ICU -in reference to hematemesis. We will check H&H q.4 hours. Patient to have type and screen. If hemoglobin is less than seven. Patient will be receiving blood transfusion. - The patient will continue on Protonix drip and octreotide drip. - EGD done by Gastroenterology and have reported no active bleeding and clots in esophagus. Acute hypoxic respiratory failure status post intubation for airway protection - critical care is on board and we will follow critical care recommendations regarding ventilator and sedation protocol - currently on ACVC, TV 400, RR 18, Fio2 50%, PEEP 5. Hemorrhagic shock - patient currently on phenylephrine drip - weaned off Levophed - continuing midazolam, fentanyl currently. - we will follow critical Care recommendations in managing hemorrhagic shock DVT of bilateral upper limbs -US doppler of both upper limbs, results howed evidence of DVT. -Consulted gastroenterology for anticoagulation recommendations. They r ecommended to give high dose Protonix drip for 48 hours and carafate 1gm PO QID and after 48 hours start heparin drip. -Patient is not a candidate for SVC filter. Unstageable wound on sacrum - we will request wound care Diabetes mellitus type 2 with associated hyperglycemia, Severe hypoalbuminemia, Hypertension, Debility, Small pericardial Effusion, Left-sided pleural effusion - echo showed no pericardial effusion, LVEF of 50-55% - continue insulin sliding scale - continue thiamine supplementation - Continue patient on cefepime, metronidazole for broad coverage - monitor vitals Q8 - monitor a.m. labs - nephrology was consulted and they have recommended to discontinue vancomycin, obtain urine analysis and complete renal ultrasound. -Repeated urinalysis, urine electrolytes, urine protein today. Urinalysis showed turbid urine, protein >300, ketones 5, moderate occult blood, moderate leukocyte esterase, RBC 6 to 10, WBC is TNTC, protein 410.9, sodium is 43, potassium is 36, chloride is 40. - We also albumin. GI prophylaxis: Pantoprazole ATTESTATION BY PHYSICIAN I have seen and examined the patient. I reviewed the documentation, medical decision making, and treatment plan as noted by the resident provider above. I agree with the findings and plan of care. Mason Hauser MD, AKSHAY MD Jan 24, 2025 18:04 KIRSTEN KRUSE MD Jan 24, 2025 18:39
--- NOTE | 2025-01-24 20:10 | HMCIMG ---
EXAM: CR Chest, 1 View. CLINICAL HISTORY: vented pt COMPARISON: None provided. FINDINGS: LUNGS: Endotracheal tube midline above arminda Slight worsening left lower lobe infiltrate PLEURAL SPACES: No evidence of pleural effusion or pneumothorax. MEDIASTINUM: Cardiac size and mediastinal contours within normal limits. BONES: No acute osseous abnormality. IMPRESSION: 1. Endotracheal tube midline above arminda 2. Slight worsening left lower lobe infiltrate /Jai
[2025-01-24] MEDS: SODIUM BICARBONATE 650 MG TAB PO SCH (20:34)
[2025-01-25] VITALS (91 sets, daily range): BP systolic 74–165; BP diastolic 44–77; PULSE 58–128; RESP 8–24; TEMP 97.2–98.1; O2SAT 100
[2025-01-25 03:38] LABS: ABG BASE EXCESS -4.4 mmol/L (-2.0-3.0); ABG HCO3 19.7 mmol/L (21.0-28.0); ABG OXYGEN SATURATION 98.1 % (94.0-98.0); ABG PCO2 32 mmHg (32-45); ABG PH 7.412 (7.350-7.450); CARBON MONOXIDE 0.3 % (0.5-1.5); DEVICE COMMENT JAMES RN ,RR; PO2, ARTERIAL BG 134.3 mmHg (83.0-108.0); TEMPERATURE, CELSIUS BG 37.0 CELSIUS (35.5-37.0); VENT MODE, BG AC VC (ROOM AIR)
[2025-01-25 04:58] LABS: ASPARTATE AMINOTRANSFERASE 25.0 U/L (10-37); CREATININE 2.6 mg/dL (0.5-1.0); GLOMERULAR FILTR. RATE CALC 20.0 mL/min (>90); GLUCOSE,RANDOM 263.0 mg/dL (70-105); PHOSPHORUS 4.4 mg/dL (2.5-4.9); SODIUM SERUM 144.0 mmol/L (136-145); TOTAL PROTEIN, SERUM 4.4 g/dL (6.0-8.3); UREA NITROGEN, BLOOD 40.0 mg/dL (7-18)
[2025-01-25 05:44] LABS: IMMATURE GRANULOCYTE ABSOLUTE 0.15 K/uL (0-1); NUCLEATED RED BLOOD CELLS 0.2 % (0.0-0.19); PLATELET COUNT (AUTO) 273 K/uL (130-400); RED BLOOD CELL COUNT(AUTO) 1.95 MIL/uL (4.00-5.50); RED CELL DISTRIBUTION WIDTH 17.1 % (11.0-15.5); WHITE BLOOD COUNT (AUTO) 11.2 K/uL (4.8-10.8)
--- NOTE | 2025-01-25 06:23 | HMCIMG ---
EXAMINATION: SPECTRAL DOPPLER ULTRASOUND EXAMINATION OF THE BILATERAL UPPER EXTREMITY VEINS. CLINICAL HISTORY: Swelling. COMPARISON: None. TECHNIQUE: Grayscale, color, and spectral Doppler images of the bilateral upper extremity veins are submitted. FINDINGS: Right: The cephalic and brachial veins are patent. These veins show normal flow with physiological changes of phasicity and augmentation. There is thrombosis in the subclavian, axillary, and basilic veins. Left: The internal jugular, subclavian, axillary, basilic, brachial veins are patent. These veins show normal flow with physiological changes of phasicity and augmentation. IMPRESSION: Deep vein thrombosis in the right subclavian and axillary veins. Right basilic vein thrombosis. The sales facilitator informed the patient's nurse at the time of the exam. /Jai
--- NOTE | 2025-01-25 07:04 | NUR ---
NURSING NOTE: DR. KRUSE MADE AWARE OF H&H LEVEL TRANSFUSE 1 PRBC.
--- NOTE | 2025-01-25 07:08 | NUR ---
[employer] INQUIRED ABOUT PENDING GI BLEED SCAN, THEY WILL CALL WHEN READY FOR PATIENT.
[2025-01-25 08:04] LABS: INR 1.24 (0.85-1.15)
--- NOTE | 2025-01-25 08:05 | PN ---
GASTROENTEROLOGY PROGRESS NOTE Date of Visit: Jan 25, 2025 Time of Visit: 08:05 Events / Notes: [v[70 yo female patient with past medical history for seizures, hypertension, CVA, BKA, who presented to ER with hematemesis. Patient had had EGD with peg tube placement in November 2024 at [facility] and had had an EGD in December at [facility] d/t hematemesis where she was found to have Grade D esophagitis. We were consulted for Hematemesis. Patient underwent an EGD on 01/23/25 and was found to have a non-bleeding tear was found in the lower third of esophagus. Large clot. No active bleeding. LA Grade D esophagitis. Diffuse moderately erythematous mucosa without bleeding in the stomach. A gastric tube was found in gastric body. Patient's WBC of 14.4, hemoglobin of 6.6, patient received 1 unit of PRBC and hemoglobin trended up to 7.1, hematocrit 21.7, platelets 367. Chemistry significant for chloride of 113, BUN 39, creatinine 2.4, glucose 153, calcium 7.0, iron 28, TIBC 44, 63.6% saturation, ferritin 1612. Total bilirubin, AST, ALT, alkaline phosphatase are normal. Total protein of 4.6, albumin 0.9. TSH 7.62. Troponin 507. Patient was found to have DVTs of the upper extremities. We were consulted for anticoagulant recommendations. 01/25/25: HGB trending down to 5.9 this am. Patient's nurse reports patient is having hematochezia. Hemoglobin trended up to 7.4 after 1 unit of RBCs transfused. WBCs at 11.2, platelets 273. Potassium 3.2, chloride 112, carbon dioxide 19, BUN 40, creatinine 2.6. Calcium 7.3, glucose 263, albumin 1.2, total protein 4.4. GI bleed scan showed no evidence of gastrointestinal hemorrhage during the examination acquisition. Plan for EGD and colonoscopy in am. Patient remains intubated. Review of Systems: Unable to completed d/t patient's status Physical Exam: GEN: Intubated and sedated HEENT:Oral pharyngeal mucosa is moist and within normal limits. CHEST: Lung auscultation revealed normal breath sounds bilaterally. CARDIAC:Heart sounds are regular. ABD: Soft, non-tender and not distended. Peg tube in place. EXT: Right BKA NEURO: Intubated and sedated. Vital Signs (last 8hr) Date Time Temp Pulse Resp B/P (MAP) Pulse Ox O2 Delivery O2 Flow Rate FiO2 01/25/25 06:24 80 30 01/25/25 03:38 80 30 01/25/25 00:24 85 30 Laboratory: [ ] Laboratory: Test 01/25/25 07:45 01/25/25 05:20 01/25/25 04:16 01/25/25 03:37 Range/Units Prothrombin Time 12.9 H 9.6-11.6 SEC Prothromb Time International Ratio 1.24 H 0.85-1.15 White Blood Count 11.2 H 4.8-10.8 K/uL Red Blood Count 1.95 L 4.00-5.50 MIL/uL Hemoglobin 5.9 *L 12.0-16.0 g/dL Hematocrit 17.0 #*L 36-48 % Mean Corpuscular Volume 87.2 79-99 fL Mean Corpuscular Hemoglobin 30.3 27.0-33.0 pg Mean Corpuscular Hemoglobin Concent 34.7 32.0-36.0 g/dL Red Cell Distribution Width 17.1 H 11.0-15.5 % Platelet Count 273 # 130-400 K/uL Mean Platelet Volume 10.5 7.5-10.5 fL Immature Granulocyte % (Auto) 1.3 H 0-1 % Neutrophils (%) (Auto) 70.9 40.0-77.0 % Lymphocytes (%) (Auto) 18.3 L 21.0-51.0 % Monocytes (%) (Auto) 7.4 3.0-13.0 % Eosinophils (%) (Auto) 1.3 0.0-8.0 % Basophils (%) (Auto) 0.8 0.0-5.0 % Neutrophils # (Auto) 7.9 H 1.8-7.7 K/uL Lymphocytes # (Auto) 2.1 1.0-4.8 K/uL Monocytes # (Auto) 0.8 0.1-1.0 K/uL Eosinophils # (Auto) 0.15 0.00-0.70 K/uL Basophils # (Auto) 0.09 0.00-0.20 K/uL Absolute Immature Granulocyte (auto 0.15 0-1 K/uL Nucleated Red Blood Cells 0.2 H 0.0-0.19 % Sodium Level 144 136-145 mmol/L Potassium Level 3.2 L 3.5-5.1 mmol/L Chloride Level 112 H 101-111 mmol/L Carbon Dioxide Level 19 L 21-32 mmol/L Blood Urea Nitrogen 40 H 7-18 mg/dL Creatinine 2.6 H 0.5-1.0 mg/dL Glomerular Filtration Rate Calc 20 >90 mL/min Random Glucose 263 #H 70-105 mg/dL Total Calcium 7.3 L 8.5-10.1 mg/dL Phosphorus Level 4.4 2.5-4.9 mg/dL Magnesium Level 2.20 1.80-2.40 mg/dL Total Bilirubin 0.3 0.2-1.0 mg/dL Aspartate Amino Transf (AST/SGOT) 25 10-37 U/L Alanine Aminotransferase (ALT/SGPT) 9 L 12-78 U/L Alkaline Phosphatase 96 50-136 U/L Total Protein 4.4 L 6.0-8.3 g/dL Albumin 1.2 #L 3.5-5.0 g/dL Thyroid Stimulating Hormone (TSH) 5.06 #H 0.36-3.74 uIU/mL Blood Gas Specimen Type Arterial Arterial Blood pH 7.412 7.350-7.450 Arterial Blood Partial Pressure CO2 32 32-45 mmHg Arterial Blood Partial Pressure O2 134.3 H 83.0-108.0 mmHg Arterial Blood HCO3 19.7 L 21.0-28.0 mmol/L Arterial Blood Oxygen Saturation 98.1 H 94.0-98.0 % Arterial Blood Base Excess -4.4 L -2.0-3.0 mmol/L Hemoglobin (Blood Gas) 6.9 *L 12.0-16.0 g/dL Sodium (Blood Gas) 139 136-145 MMOL/L Bedside Potassium (Blood Gas) 3.1 L 3.4-4.5 MMOL/L Bedside Chloride (Blood Gas) 112 H 98-107 MMOL/L Bedside Glucose (Blood Gas) 256 H 65-95 MG/DL Bedside Ionized Calcium (Blood Gas) 1.13 L 1.15-1.33 MMOL/L Bedside Lactic Acid (Blood Gas) 1.22 H 0.36-0.75 MMOL/L Blood Gas Temperature 37.0 35.5-37.0 CELSIUS Blood Gas Respiration Rate 14.0 min. Blood Gas Vent Mode AC VC ROOM AIR FiO2 30.0 % Blood Gas Tidal Volume 400 ml Blood Gas PEEP 5 cm H2O Blood Gas Specimen Comment ANA RN ,RR Test 01/24/25 22:25 01/24/25 11:50 01/24/25 07:36 01/24/25 05:50 Range/Units Whole Blood Glucose 231 H 70-110 MG/DL Urine Color YELLOW YELLOW Urine Appearance TURBID H CLEAR Urine pH 5.5 5.0-8.0 Urine Specific [place] 1.024 1.001-1.031 Urine Protein >=300 H NEGATIVE mg/dL Urine Glucose (UA) NEGATIVE NEGATIVE mg/dL Urine Ketones 5 H NEGATIVE mg/dL Urine Occult Blood MODERATE H NEGATIVE Urine Nitrate NEGATIVE NEGATIVE Urine Bilirubin NEGATIVE NEGATIVE mg/dL Urine Urobilinogen 0.2 0.2-1.0 mg/dL Urine Leukocyte Esterase MODERATE H NEGATIVE Sunitha/uL Urine RBC 6-10 H 0-1 /HPF Urine WBC TNTC H 0-1 /HPF Urine Squamous Epithelial Cells Few 0-2 /HPF Urine Bacteria Rare None Seen /HPF Urine Yeast Few H None Seen /HPF Urine Random Sodium 43 40-220 mmol/l Urine Random Potassium 36 25-125 mmol/L Urine Random Chloride 40 L 110-250 mmol/L Lactic Acid Level 1.4 0.8-2.5 mmol/L Uric Acid 6.8 2.6-7.2 mg/dL Iron Level 28 L 50-170 mcg/dL Total Iron Binding Capacity 44 L 250-450 mcg/dL Percent Iron Saturation 63.6 H 22-44 % Ferritin 1612 H 15-150 ng/mL Test 01/23/25 17:51 01/23/25 11:27 Range/Units Troponin I High Sensitivity 507 *H 4-50 ng/L Total Creatine Kinase 57 21-232 U/L Procalcitonin 3.72 H 0.05-0.5 ng/mL Current Medications Medications (Trade) Dose Ordered Sig/Arik Route PRN Reason Start Time Stop Time Status Last Admin Dose Admin Albumin Human 50 ml @ 0 mls/hr Q8H6 IV 01/24/25 14:00 01/24/25 22:00 DC 01/24/25 20:45 1,200 MLS/HR Artificial Tears (Artificial Tears) 1 DROP OR AD Q8H OU 01/23/25 19:30 02/22/25 19:29 01/25/25 04:27 1 DROP Bumetanide (Bumex 1mg Vial) 1 mg ONCE PRN IVP AFTER TRANSFUSION 01/24/25 08:00 01/24/25 09:23 DC Bumetanide (Bumex 1mg Vial) 2 mg ONCE PRN IVP AFTER TRANSFUSION 01/24/25 14:00 01/24/25 14:00 DC 01/24/25 13:28 2 MG Cefepime HCl (MAXipime 2 gm vial) 2 gm Q24H IVPB 01/23/25 12:00 02/02/25 11:59 01/24/25 12:13 2 GM Ceftriaxone Sodium (ROCEphine 1G INJ) 1 gm Q24H IVPB 01/22/25 12:00 01/22/25 16:25 DC 01/22/25 14:18 1 GM Chlorhexidine Gluconate (Peridex) 15 ml TID MM 01/23/25 21:00 02/06/25 20:59 01/24/25 20:34 15 ML Dextrose (D50w) 50 ml AD PRN IV HYPOGLYCEMIA PROTOCOL 01/22/25 15:30 02/21/25 15:29 Fentanyl Citrate 100 ml @ 2.5 mls/hr PROTOCOL IV 01/22/25 12:00 01/22/25 11:55 DC Fentanyl Citrate 100 ml @ 2.5 mls/hr PROTOCOL IV 01/22/25 12:00 01/29/25 11:59 01/25/25 07:15 2.5 MLS/HR Glucagon (Glucagon 1mg Kit) 1 mg AD PRN IM HYPOGLYCEMIA PROTOCOL 01/22/25 15:30 02/21/25 15:29 Insulin Human Regular (humuLIN R 100 UNIT/ML 3ML) INSULIN SLIDING SCAL... ACHS SQ 01/22/25 21:00 02/21/25 20:59 01/24/25 23:13 4 UNIT Levetiracetam (kepPRA 500 MG TABLET) 500 mg BID PO 01/22/25 21:00 01/22/25 22:13 DC Levetiracetam 500 mg/Sodium Chloride 100 ml @ 400 mls/hr Q12H9 IV 01/22/25 22:00 02/21/25 21:59 01/24/25 20:45 400 MLS/HR Levothyroxine Sodium (SYNTHroid VIAL 100MCG) 100 mcg SYN IV 01/23/25 06:30 02/22/25 06:29 01/25/25 07:14 100 MCG Linezolid 300 ml @ 150 mls/hr Q12H IV 01/24/25 08:00 02/03/25 07:59 01/24/25 20:34 150 MLS/HR Magnesium Sulfate 50 ml @ 0 mls/hr PROTOCOL PRN IV Hypomagnesemia 01/22/25 15:30 02/21/25 15:29 01/23/25 09:56 0 MLS/HR Metronidazole/ Sodium Chloride 100 ml @ 100 mls/hr Q8H6 IVPB 01/22/25 22:00 02/01/25 21:59 01/25/25 07:14 100 MLS/HR Midazolam HCl 50 ml @ 0 mls/hr PROTOCOL IV 01/22/25 12:00 01/29/25 11:59 01/24/25 20:38 2 MLS/HR Norepinephrine 250 ml @ 0 mls/hr PROTOCOL IV 01/22/25 10:00 01/23/25 09:52 DC 01/22/25 14:24 60 MLS/HR Norepinephrine Bitartrate (Norepineph 16 Mg/250ml NS Premix) per protocol PROTOCOL IV 01/23/25 10:00 02/22/25 09:59 01/23/25 23:50 16 MG Octreotide Acetate 1250 mcg/ Sodium Chloride 250 ml @ 0 mls/hr PROTOCOL IV 01/22/25 12:30 01/22/25 12:17 DC Octreotide Acetate 1250 mcg/ Sodium Chloride 250 ml @ 0 mls/hr PROTOCOL IV 01/22/25 12:30 01/24/25 09:23 DC 01/22/25 12:41 5 MLS/HR Pantoprazole Sodium (PROTonix 40MG INJ) 40 mg BID IVP 01/24/25 21:00 01/24/25 15:02 DC Pantoprazole Sodium 80 mg/ Sodium Chloride 100 ml @ 10 mls/hr Q10H IV 01/22/25 09:00 01/24/25 09:23 DC 01/24/25 09:17 10 MLS/HR Pantoprazole Sodium 80 mg/ Sodium Chloride 100 ml @ 10 mls/hr Q10H IV 01/24/25 15:00 02/23/25 14:59 01/25/25 02:03 10 MLS/HR Pharmacy Profile Note (Pharmacy Communication) 1 each ONCE MISC 01/22/25 12:00 01/22/25 11:53 DC Pharmacy Profile Note (Pharmacy Communication) 1 each ONCE MISC 01/22/25 12:00 01/22/25 11:53 DC Pharmacy Profile Note (Pharmacy Communication) 1 each ONCE MISC 01/23/25 13:00 01/23/25 13:09 DC Pharmacy Profile Note (Pharmacy Communication) 1 each ONCE MISC 01/24/25 08:00 01/24/25 07:51 DC Phenylephrine HCl 100 mg/Sodium Chloride 250 ml @ 0 mls/hr AD PRN IV TITRATE 01/22/25 17:00 02/21/25 16:59 01/23/25 09:30 0 MLS/HR Potassium Chloride 100 ml @ 50 mls/hr AD PRN IV POTASSIUM PROTOCOL 01/22/25 15:30 01/24/25 07:50 DC Potassium Chloride 100 ml @ 100 mls/hr AD PRN IV POTASSIUM PROTOCOL 01/22/25 15:30 02/21/25 15:29 01/23/25 08:18 100 MLS/HR Potassium Chloride (K-Dur/Klor-Con 20meq) 20 meq AD PRN PO POTASSIUM PROTOCOL 01/22/25 15:30 02/21/25 15:29 Potassium Chloride (KCl 10% Elixir 20meq/15ml) 20 meq AD PRN PO POTASSIUM PROTOCOL 01/22/25 15:30 02/21/25 15:29 Propofol (DIPRivan 1000MG/ 100ML) 1,000 mg PROTOCOL PRN IV SEDATION 01/22/25 12:00 01/22/25 11:55 DC Sodium Bicarbonate (Sodium Bicarbonate) 650 mg BID PO 01/24/25 21:00 02/23/25 20:59 01/24/25 20:34 650 MG Sodium Chloride 1,000 ml @ 150 mls/hr Q6H40M IV 01/22/25 12:00 01/23/25 10:56 DC 01/23/25 02:45 150 MLS/HR Sucralfate (Carafate) 1 gm BID PO 01/23/25 21:00 01/23/25 11:41 DC Sucralfate (Carafate) 1 gm QID PO 01/24/25 17:00 02/23/25 16:59 01/24/25 20:34 1 GM Sucralfate (Carafate) 1 gm TID PO 01/23/25 14:00 01/24/25 15:02 DC 01/24/25 13:28 1 GM Thiamine HCl 100 mg/Sodium Chloride 50 ml @ 100 mls/hr Q24H IV 01/23/25 14:00 01/25/25 14:29 01/24/25 13:28 100 MLS/HR Vancomycin HCl (Vancomycin 750mg) 750 mg Q24H IVPB 01/23/25 17:00 01/23/25 10:56 DC Vancomycin HCl (Vancomycin Protocol) 1 each AD IV 01/22/25 15:00 01/23/25 10:56 DC Diagnostics / Radiology: [COPY/PASTE HERE IF NO REPORTS PLEASE DELETE SECTION] Assessment: [Acute blood loss anemia LA grade D esophageal varices Esophageal tear ] Plan: Case discussed with Dr. Branch [Recommend trending hgb every 6 hours and transfuse as needed to goal HGB>7 Protonix drip for the next 48 hours, then protonix 40mg IV bid. Carafate 1 gram po qid. Hold anticoagulant therapy for now. Plan for EGD and Colonoscopy in AM. Please call with questions, concerns, and change in clinical status and any s/s of any overt GI bleeding. Thank you for this consult. ] HORACIO RASHID NP Jan 25, 2025 08:05
--- NOTE | 2025-01-25 12:58 | CONS ---
CONSULT REASON FOR CONSULT: Acute blood loss anemia, DVT HISTORY HPI: Patient is a 70 year old female with a past medical history of diabetes mellitus type II, HTN, anemia, and hx of CVA, hx of right BKA who preseted tot [facility] secondary to hematemesis. Patient has a history of peptic ulcer disease. She had a PEG tube placed around two weeks ago at [facility]. CT abdomen demonstrates no acute process. In the ED patient was intubated for airway protection after an episode of hematemesis. Endoscopy from 01/23/25 demonstrates a non-bleeding tear and large clot with Grade D esophageal varices. Bilateral upper limb Doppler demonstrates deep vein thrombosis in the right subclavian and axillary veins. Right basilic vein thrombosis. 01/24: Patient was seen with at bedside. and daughter (over phone) stated the patient's baseline has deteriorated past few months and mention history of seizures well controlled on Levetiracetam. When asked about why PEG tube was placed, family stated the patient was unable to swallow and was no longer speaking. Currently, patient is continued on sedation, low dose norepinephrine, and mechanical ventilation with TV 394, RR 14, FiO2 29. Hgb has dropped to 5.9 from 7.1 and had received one unit yesterday. Iron low at 28, TIBC at 44. Patient is not a good candidate for SVC filter. Bleeding scan demonstrates no GI hemorrhage. Patient is currently on Protonix and Carafate. Blood smear demonstrates microcytic hypochromic anemia. We will transfuse one unit PRBC and start IV Iron. After iron patient can receive Procrit. PMH: Diabetes mellitus type 2, hypertension, anemia, history of CVA history of right below-knee amputation, seizures. PSH: Right below-knee amputation History of PEG tube placement SH: Unable to obtain FH: Unable to obtain ALLERGIES: Coded Allergies: No Known Drug Allergies (Unverified Allergy, Unknown, 01/22/25) CURRENT MEDS: Current Medications Medications (Trade) Dose Ordered Sig/Arik Route PRN Reason Start Time Stop Time Status Last Admin Sucralfate (Carafate) 1 gm QID PO 01/24/25 17:00 02/23/25 16:59 01/25/25 09:26 Pantoprazole Sodium 80 mg/ Sodium Chloride 100 ml @ 10 mls/hr Q10H IV 01/24/25 15:00 02/23/25 14:59 01/25/25 02:03 Sodium Bicarbonate (Sodium Bicarbonate) 650 mg BID PO 01/24/25 21:00 02/23/25 20:59 01/25/25 09:26 Vasopressin 40 units/Sodium Chloride 40 ml @ 0 mls/hr PROTOCOL IV 01/25/25 09:30 02/24/25 09:29 Polyethylene Glycol/ Electrolytes (Golytely/Colyte Soln) 4,000 ml ONCE ONCE PO 01/25/25 14:00 01/25/25 14:01 PHYSICAL EXAM VITALS: Vital Signs Date Time Temp Pulse Resp B/P (MAP) Pulse Ox O2 Delivery O2 Flow Rate FiO2 01/25/25 09:45 71 30 01/25/25 08:00 97.9 01/25/25 06:55 14 132/60 (84) 100 01/25/25 03:26 Ventilator+ 01/23/25 08:14 10.0 GENERAL: No ALERT, No ORIENTED, No APPEARS-NO ACUTE DISTRESS CARDIOVASCULAR: REGULAR RATE, REGULAR RHYTHM DIAGNOSTIC STUDIES PATIENT: JUSTIN KLINE MR#: [id number] : 1955 SEX: F AGE: 70 LOCATION: 2CH ORDER 1510 STATUS: ADM IN REPORT#: [id number] SERVICE 1508 REASON: HGB drop, assess for possible GI bleed ORDERING PHYSICIAN: KIRSTEN KRUSE MD PROCEDURE: GIBLEED - NM GI BLOOD LOSS IMAG Examination NM radiolabeled red blood cell study History Gastrointestinal bleeding Technique After IV administration of Tc-99m labeled red autologous blood cells, anterior projection images of the abdomen and pelvis were obtained dynamically for one hour. Findings Following administration of radiolabeled red blood cells, there is normal activity seen in cardiovascular and genitourinary structures, the liver and spleen. There is no evidence for extravasation of radiolabeled red blood cells during the examination. IMPRESSION: No evidence of gastrointestinal hemorrhage during the course of examination acquisition. /[place] DICTATED BY: RADHA BECERRA Jr., MD DATE: 01/25/255 ELECTRONICALLY SIGNED BY: RADHA BECERRA Jr., MD DATE: 01/25/25 1458 PATIENT: JUSTIN KLINE MR#: [id number] : 1955 SEX: F AGE: 70 LOCATION: 2[facility] ORDER 1143 STATUS: ADM IN REPORT#: [id number] SERVICE 1131 REASON: new onset swelling in her arms ORDERING PHYSICIAN: KIRSTEN KRUSE MD PROCEDURE: VENOUS ALCIDES - US VENOUS DOPPLER BILATERAL EXAMINATION: SPECTRAL DOPPLER ULTRASOUND EXAMINATION OF THE BILATERAL UPPER EXTREMITY VEINS. CLINICAL HISTORY: Swelling. COMPARISON: None. TECHNIQUE: Grayscale, color, and spectral Doppler images of the bilateral upper extremity veins are submitted. FINDINGS: Right: The cephalic and brachial veins are patent. These veins show normal flow with physiological changes of phasicity and augmentation. There is thrombosis in the subclavian, axillary, and basilic veins. Left: The internal jugular, subclavian, axillary, basilic, brachial veins are patent. These veins show normal flow with physiological changes of phasicity and augmentation. IMPRESSION: Deep vein thrombosis in the right subclavian and axillary veins. Right basilic vein thrombosis. The inspector structural bonding informed the patient's nurse at the time of the exam. /[place] DICTATED BY: GOVIND HAYES MD DATE: 01/25/25722 ELECTRONICALLY SIGNED BY: GOVIND HAYES MD DATE: 01/25/25722 PATIENT: JUSTIN KLINE MR#: [id number] : 1955 SEX: F AGE: 70 LOCATION: 2[facility] ORDER 2300 STATUS: ADM IN REPORT#: [id number] SERVICE 0600 REASON: vented pt ORDERING PHYSICIAN: KARL RODRIGUEZ PROCEDURE: CXR1VW - CHEST 1VW EXAM: CR Chest, 1 View. CLINICAL HISTORY: vented pt COMPARISON: None provided. FINDINGS: LUNGS: Endotracheal tube midline above arminda Slight worsening left lower lobe infiltrate PLEURAL SPACES: No evidence of pleural effusion or pneumothorax. MEDIASTINUM: Cardiac size and mediastinal contours within normal limits. BONES: No acute osseous abnormality. IMPRESSION: 1. Endotracheal tube midline above arminda 2. Slight worsening left lower lobe infiltrate /[place] DICTATED BY: ANA ALSTON MD DATE: 01/24/252109 ELECTRONICALLY SIGNED BY: ANA ALSTON MD DATE: 01/24/252109 PATIENT: JUSTIN KLINE MR#: [id number] : 1955 SEX: F AGE: 70 LOCATION: [facility] ORDER 1301 STATUS: ADM IN REPORT#: [id number] SERVICE 1258 REASON: Decreased renal function ORDERING PHYSICIAN: SAUMYA ANTONIO PROCEDURE: RENAL - US RENAL SONOGRAM EXAMINATION: ULTRASOUND OF THE RETROPERITONEUM. CLINICAL HISTORY: Decreased renal function. COMPARISON: CT abdomen and pelvis without contrast dated 01/22/2025. TECHNIQUE: Real-time grayscale ultrasound images of the kidneys. FINDINGS: The right kidney is smaller in caliber, and the left kidney is normal in caliber, the right kidney measures 7.4 x 3.9 x 3.1 cm and the left kidney measures 8.2 x 3.0 x 3.3 cm in its craniocaudal, AP, and transverse dimensions respectively. There is normal renal cortical thickness and increased cortical echogenicity. There is no renal calculus or hydronephrosis. The urinary bladder is empty. There is Kamara???s bulb. IMPRESSION: Relatively small right kidney. Increased echogenicity of both the kidneys may reflect renal parenchymal disease. Recommend clinical correlation and with laboratory parameters. Kamara???s bulb is in situ. /[place] DICTATED BY: RADHA BECERRA Jr., MD DATE: 01/23/252300 ELECTRONICALLY SIGNED BY: RADHA BECERRA Jr., MD DATE: 01/23/252300 PATIENT: JUSTIN KLINE MR#: [id number] : 1955 SEX: F AGE: 70 LOCATION: 2[facility] ORDER 23 STATUS: ADM IN REPORT#: [id number] SERVICE 22 REASON: NG tube location ORDERING PHYSICIAN: KENA HAWLEY MD PROCEDURE: ABD 1VW - ABD 1VW ADDENDUM REPORT ADDENDUM: Results were shared by telephone at 10:10 pm on 01-22-25 and acknowledged by KENA Rivas. /[place] EXAM: CR Abdomen, 1 View. CLINICAL HISTORY: NG tube location COMPARISON: None provided. FINDINGS: BOWEL: The bowel gas pattern is within normal limits. PERITONEUM/SOFT TISSUES: No free air evident. No pathologic appearing calcification. BONES: No acute osseous abnormality. MISCELLANEOUS: No nasogastric tube identified. Gastrostomy tube left upper IMPRESSION: 1. No nasogastric tube identified. 2. Gastrostomy tube left upper quadrant /[place] DICTATED BY: ANA ALSTON MD DATE: 01/22/252210 ELECTRONICALLY SIGNED BY: DATE: EXAM: CR Abdomen, 1 View. CLINICAL HISTORY: NG tube location COMPARISON: None provided. FINDINGS: BOWEL: The bowel gas pattern is within normal limits. PERITONEUM/SOFT TISSUES: No free air evident. No pathologic appearing calcification. BONES: No acute osseous abnormality. MISCELLANEOUS: No nasogastric tube identified. Gastrostomy tube left upper IMPRESSION: 1. No nasogastric tube identified. 2. Gastrostomy tube left upper quadrant /[place] DICTATED BY: ANA ALSTON MD DATE: 01/22/252200 ELECTRONICALLY SIGNED BY: ANA ALSTON MD DATE: 01/22/252200 PATIENT: JUSTIN KLINE MR#: [id number] : 1955 SEX: F AGE: 70 LOCATION: 2CH ORDER 1512 STATUS: ADM IN REPORT#: [id number] SERVICE 1509 REASON: transaminitis rule out CBD dilation/obstruction cholangitis ORDERING PHYSICIAN: KARL RODRIGUEZ PROCEDURE: ABDRUQLTD - US ABDOMINAL RUQ\LTD EXAMINATION: ULTRASOUND OF THE ABDOMEN (LIMITED) WITH COLOR DOPPLER. CLINICAL HISTORY: Transaminitis. To rule out CBD obstruction. COMPARISON: CT abdomen and pelvis without contrast from the same day. TECHNIQUE: Real-time grayscale ultrasound images of the abdomen. In addition, color Doppler is medically necessary to perform in order to evaluate vascularity and blood flow. FINDINGS: Liver: Normal in caliber, the right hepatic lobe measures 15.4 cm in the craniocaudal dimension. There is increased echogenicity of the hepatic parenchyma. There is no focal hepatic abnormality or intrahepatic biliary ductal dilatation. There is normal spectral Doppler of the main portal vein. Gallbladder: Within normal limits with normal wall thickness (0.22 cm). No hyperemia or pericholecystic free fluid. There are few calculi, the largest measure 1.5 cm. Common bile duct is normal in caliber, measuring 0.28 cm. Pancreas: Obscured by overlying bowel gas. The right kidney is normal in caliber, the right kidney measures 8.2 x 3.3 x 2.9 cm in craniocaudal, AP, and transverse dimensions respectively. There is normal renal cortical thickness, and cortical echogenicity. There is no renal calculus or hydronephrosis. IMPRESSION: Hepatic steatosis. Cholelithiasis. No cholecystitis. /[place] DICTATED BY: GOVIND HAYES MD DATE: 01/23/25856 ELECTRONICALLY SIGNED BY: GOVIND HAYES MD DATE: 01/23/25856 PATIENT: JUSTIN KLINE MR#: [id number] : 1955 SEX: F AGE: 70 LOCATION: 2CH ORDER 1227 STATUS: ADM IN REPORT#: [id number] SERVICE 1226 REASON: PERICARDIAL EFFUSION. Please also assess EF ORDERING PHYSICIAN: KENA HAWLEY MD PROCEDURE: ECHO [facility] - ECHO 2-D COMPLETE APPROVED REPORT EXAM: Two-dimensional and M-mode echocardiogram with Doppler and color Doppler. INDICATION ICD: Assess pericardial effusion and ejection fraction 2D Dimensions RVDd 3.0 cm LVEF(%) 49.3 (>50%) LVED Vol(simp.) 20.0 mL IVSd 1.9 (0.7-1.1cm) FS(%) 23 % LVES Vol(simp.) 9.0 mL LVDd 2.4 (3.8-5.6cm) LA (2D) 2.6 (1.6-4.0cm) LVEF(%, simp.) 55 % PWd 2.0 (0.7-1.1cm) Ao Root(2D) 2.7 (2.0-3.7cm) LA ESV INDEX (BP) 22.00 mL/m2 IVSs 2.0 cm LVOT diam 2.0 (1.8-2.4cm) LVDs 1.8 (2.5-4.0cm) IVC diam 1.2 cm PWs 1.7 cm Deformation Strain Apical 4 -7.1 % Apical 2 -6.9 % Apical 3 -10.1 % Global Strain -8.0 % M-Mode Dimensions EPSS 0.8 cm LA (MM) 2.3 (1.6-4.0cm) Ao Root(MM) 2.9 (2.0-3.7cm) Aortic Valve AoV Vmax 2.1 m/s Ao Peak GR 17.0 mmHg LVOT Vmax 2.1 m/s AoV VTI 0.2 m Ao Mean GR 8.4 mmHg LVOT VTI 0.22 m YASMEEN (VMAX) 3.02 cm2 YASMEEN (VTI) 3.6 cm2 Mitral Valve MV E Vmax 51.6 cm/s DECEL Time 82 ms MV A Vmax 69.0 cm/s P 1/2 T 19 ms E/A ratio 0.7 MVA (PHT) 11.9 cm2 TDI E/E' Medial 6.8 E/E' Lateral 9.3 Medial E' Peak V 7.57 cm/s Lateral E' Peak V 5.54 cm/s Pulmonary Valve PV Vmax 1.3 m/s PV VTI 0.14 m PV Mean GR 3.5 mmHg PV Peak GR 6.5 mmHg Tricuspid Valve TR Vmax 1.5 m/s RAP (EST) 3 mmHg RVSP 12.4 mmHg TR Peak GR 9.4 mmHg Left Ventricle Left ventricular cavity is small. GLS -8.0% Severe concentric left ventricular hypertrophy. LVEF is 50-55%. The left ventricular diastolic function is normal. Right Ventricle The right ventricle is normal size. The right ventricular systolic function is normal. Atria The left atrium size is normal. The right atrium is small in size. Aortic Valve The aortic valve is normal in structure. No aortic regurgitation is present. There is no aortic valvular stenosis. Mitral Valve The mitral valve is normal in structure. There is trace of mitral valve regurgitation noted. There is no mitral valve stenosis. Tricuspid Valve The tricuspid valve is normal in structure. There is trace of tricuspid valve regurgitation noted. Pulmonic Valve Pulmonic valve is not well visualized. There is no pulmonic valvular regurgitation. Great Vessels The aortic root is normal in size. The IVC is normal in size and collapses >50% with inspiration. Pericardium There is no pericardial effusion. Other Information Quality : Technically difficult study due to body habitus, pt intubated Rhythm : Tachycardia Conclusion LVEF is 50-55%. Severe concentric left ventricular hypertrophy. The left ventricular diastolic function is normal. There is no pericardial effusion. DICTATED BY: GIULIANA AWAN DO DATE: 01/22/25 1318 ELECTRONICALLY SIGNED BY: GIULIANA AWAN DO DATE: 01/23/25 0743 PATIENT: JUSTIN KLINE MR#: [id number] : 1955 SEX: F AGE: 70 LOCATION: [facility] ORDER 8 STATUS: REG ER REPORT#: [id number] SERVICE REASON: gi bleed ORDERING PHYSICIAN: JULISA PETERSON MD PROCEDURE: ABD PEL WO - CT ABDOMEN/PELVIS W/O CONTRAST CT ABDOMEN/PELVIS W/O CONTRAST REASON: gi bleed COMPARISON: None. FINDINGS: Lung bases are clear. There is a small left-sided pleural effusion. There is coronary calcifications suggesting coronary artery disease. There is suggestion of small pericardial effusion. There is a moderate size hiatal hernia. . There are no focal liver lesions. There are normal-appearing kidneys.. Spleen and pancreas appear unremarkable. The gallbladder appears normal as well. There is a feeding gastrostomy tube in place. Bowel loops appear unremarkable. This includes normal appearance of the appendix . There is fecal stasis in the rectal vault. Abutting the right lobe of the bowel in the right lower quadrant and abutting the right psoas muscle there is a a cystic structure measuring 5.9 x 3.9 cm. There is no evidence of free fluid or intraperitoneal air. There are no focal fluid collections. The retroperitoneum appear normal as do pelvic soft tissue structures. Aorta and iliac vessels demonstrate diffuse atherosclerotic changes. The anterior abdominal wall is intact. Osseous structures appear unremarkable. The uterus is surgically absent. IMPRESSION: 1. No acute process seen in CT of abdomen and pelvis without intravenous contrast 2. In the right adnexal region there is a cystic structure measuring 5.9 x 3.9 cm 3. Fecal stasis impaction seen in the rectal vault CT was performed with one or more following dose reduction techniques: automated exposure control, adjustment of the mA and kv according to patient's size, or use of a iterative reconstruction technique. DICTATED BY: RENA MADDOX MD DATE: 01/22/25 1044 ELECTRONICALLY SIGNED BY: RENA MADDOX MD DATE: 01/22/25 1051 IMPRESSION Acute blood loss anemia LA grade D esophageal varices Esophageal tear Deep vein thrombosis in the right subclavian and axillary veins. Right basilic v ein thrombosis. PLAN Recommend trending hgb every 6 hours and transfuse as needed to goal HGB>7 Protonix drip for the next 48 hours, then Protonix 40mg IV bid. Carafate 1 gram p.o. qid. Hold anticoagulant therapy for now Not a candidate for SVC filter Transfuse 1 unit PRBC Start on IV iron FLACA GERARD MD Jan 25, 2025 12:57
--- NOTE | 2025-01-25 13:59 | HMCIMG ---
Examination NM radiolabeled red blood cell study History Gastrointestinal bleeding Technique After IV administration of Tc-99m labeled red autologous blood cells, anterior projection images of the abdomen and pelvis were obtained dynamically for one hour. Findings Following administration of radiolabeled red blood cells, there is normal activity seen in cardiovascular and genitourinary structures, the liver and spleen. There is no evidence for extravasation of radiolabeled red blood cells during the examination. IMPRESSION: No evidence of gastrointestinal hemorrhage during the course of examination acquisition. /[place]
--- NOTE | 2025-01-25 14:02 | PN ---
NEPHROLOGY PROGRESS NOTE Date/Time Patient Seen: Jan 25, 2025 SUBJECTIVE: This is a 70-year-old female with past medical history of diabetes mellitus type 2, hypertension, anemia, history of CVA, history of right below-knee amputation She presented to the hospital secondary to hematemesis. Patient is currently intubated and sedated. Most information was obtained from chart review. bedside nurse, and family due to patient's condition The patient was noted to have black colored vomit at home which started yesterday. She has a history of peptic ulcer disease. She also has a PEG tube placed around two weeks ago. Peg tube was placed in [facility]. She was noted to have elevated BUN/creatinine. Continues to require vasopressors to maintain blood pressure. Continues on antibiotics We are consulted for renal failure Renal function remains elevated Electrolytes are stable. Iron panel was noted,S/p PRBC Pending NM bleeding scan Imaging studies were noted She continues on antibiotics She was seen in the ICU, intubated and sedated Family at the bedside Condition is critical and guarded REVIEW OF SYSTEMS: Difficult to obtain given status of the patient who remains intubated mechanically ventilated Vital Signs (last 8hr) Date Time Temp Pulse Resp B/P (MAP) Pulse Ox O2 Delivery O2 Flow Rate FiO2 01/25/25 09:45 71 30 01/25/25 08:00 97.9 01/25/25 06:55 74 14 132/60 (84) 100 01/25/25 06:40 74 15 121/67 (85) 100 01/25/25 06:25 76 14 122/52 (75) 100 01/25/25 06:24 80 30 01/25/25 06:18 78 15 131/61 (84) 100 PHYSICAL EXAM: General: acutely ill, sedated, intubated, and mechanically ventilated HEENT: head is atraumatic, pupils equal and reactive, ET tube in place Neck: supple, no masses, no lymphadenopathy, no thyromegaly, no JVD Lungs: decreased breath sounds bilaterally, symmetrical chest movement Cardio: regular rate, S1 and S2 normal, no rub or gallop Abdomen: soft, non tender, no distension, no organomegaly Extremities: trace edema bilateral lower extremities, no cyanosis or clubbing Skin: no rashes or suspicious lesions Neuro: sedated Current Medications Medications (Trade) Dose Ordered Sig/Arik Route Start Time Stop Time Status Last Admin Dose Admin Albumin Human 50 ml @ 0 mls/hr Q8H6 IV 01/24/25 14:00 01/24/25 22:00 Artificial Tears (Artificial Tears) 1 DROP OR AD Q8H OU 01/23/25 19:30 02/22/25 19:29 01/24/25 12:13 1 DROP Cefepime HCl (MAXipime 2 gm vial) 2 gm Q24H IVPB 01/23/25 12:00 02/02/25 11:59 01/24/25 12:13 2 GM Ceftriaxone Sodium (ROCEphine 1G INJ) 1 gm Q24H IVPB 01/22/25 12:00 01/22/25 16:25 DC 01/22/25 14:18 1 GM Chlorhexidine Gluconate (Peridex) 15 ml TID MM 01/23/25 21:00 02/06/25 20:59 01/24/25 09:15 15 ML Fentanyl Citrate 100 ml @ 2.5 mls/hr PROTOCOL IV 01/22/25 12:00 01/22/25 11:55 DC Fentanyl Citrate 100 ml @ 2.5 mls/hr PROTOCOL IV 01/22/25 12:00 01/29/25 11:59 01/24/25 06:59 2.5 MLS/HR Insulin Human Regular (humuLIN R 100 UNIT/ML 3ML) INSULIN SLIDING SCAL... ACHS SQ 01/22/25 21:00 02/21/25 20:59 01/23/25 12:20 2 UNIT Levetiracetam (kepPRA 500 MG TABLET) 500 mg BID PO 01/22/25 21:00 01/22/25 22:13 DC Levetiracetam 500 mg/Sodium Chloride 100 ml @ 400 mls/hr Q12H9 IV 01/22/25 22:00 02/21/25 21:59 01/24/25 09:17 400 MLS/HR Levothyroxine Sodium (SYNTHroid VIAL 100MCG) 100 mcg SYN IV 01/23/25 06:30 02/22/25 06:29 01/24/25 05:34 100 MCG Linezolid 300 ml @ 150 mls/hr Q12H IV 01/24/25 08:00 02/03/25 07:59 01/24/25 09:15 150 MLS/HR Metronidazole/ Sodium Chloride 100 ml @ 100 mls/hr Q8H6 IVPB 01/22/25 22:00 02/01/25 21:59 01/24/25 05:34 100 MLS/HR Midazolam HCl 50 ml @ 0 mls/hr PROTOCOL IV 01/22/25 12:00 01/29/25 11:59 01/22/25 20:51 1 MLS/HR Norepinephrine 250 ml @ 0 mls/hr PROTOCOL IV 01/22/25 10:00 01/23/25 09:52 DC 01/22/25 14:24 60 MLS/HR Norepinephrine Bitartrate (Norepineph 16 Mg/250ml NS Premix) per protocol PROTOCOL IV 01/23/25 10:00 02/22/25 09:59 01/23/25 23:50 16 MG Octreotide Acetate 1250 mcg/ Sodium Chloride 250 ml @ 0 mls/hr PROTOCOL IV 01/22/25 12:30 01/22/25 12:17 DC Octreotide Acetate 1250 mcg/ Sodium Chloride 250 ml @ 0 mls/hr PROTOCOL IV 01/22/25 12:30 01/24/25 09:23 DC 01/22/25 12:41 5 MLS/HR Pantoprazole Sodium (PROTonix 40MG INJ) 40 mg BID IVP 01/24/25 21:00 02/23/25 20:59 Pantoprazole Sodium 80 mg/ Sodium Chloride 100 ml @ 10 mls/hr Q10H IV 01/22/25 09:00 01/24/25 09:23 DC 01/24/25 09:17 10 MLS/HR Pharmacy Profile Note (Pharmacy Communication) 1 each ONCE MISC 01/22/25 12:00 01/22/25 11:53 DC Pharmacy Profile Note (Pharmacy Communication) 1 each ONCE MISC 01/22/25 12:00 01/22/25 11:53 DC Pharmacy Profile Note (Pharmacy Communication) 1 each ONCE MISC 01/23/25 13:00 01/23/25 13:09 DC Pharmacy Profile Note (Pharmacy Communication) 1 each ONCE MISC 01/24/25 08:00 01/24/25 07:51 DC Sodium Chloride 1,000 ml @ 150 mls/hr Q6H40M IV 01/22/25 12:00 01/23/25 10:56 DC 01/23/25 02:45 150 MLS/HR Sucralfate (Carafate) 1 gm BID PO 01/23/25 21:00 01/23/25 11:41 DC Sucralfate (Carafate) 1 gm TID PO 01/23/25 14:00 02/22/25 20:59 01/24/25 09:15 1 GM Thiamine HCl 100 mg/Sodium Chloride 50 ml @ 100 mls/hr Q24H IV 01/23/25 14:00 01/25/25 14:29 01/23/25 14:05 100 MLS/HR Vancomycin HCl (Vancomycin 750mg) 750 mg Q24H IVPB 01/23/25 17:00 01/23/25 10:56 DC Vancomycin HCl (Vancomycin Protocol) 1 each AD IV 01/22/25 15:00 01/23/25 10:56 DC LABORATORY: [ ] Hematology Labs: Test 01/25/25 05:20 Range/Units White Blood Count 11.2 H 4.8-10.8 K/uL Red Blood Count 1.95 L 4.00-5.50 MIL/uL Hemoglobin 5.9 *L 12.0-16.0 g/dL Hematocrit 17.0 #*L 36-48 % Mean Corpuscular Volume 87.2 79-99 fL Mean Corpuscular Hemoglobin 30.3 27.0-33.0 pg Mean Corpuscular Hemoglobin Concent 34.7 32.0-36.0 g/dL Red Cell Distribution Width 17.1 H 11.0-15.5 % Platelet Count 273 # 130-400 K/uL Mean Platelet Volume 10.5 7.5-10.5 fL Immature Granulocyte % (Auto) 1.3 H 0-1 % Neutrophils (%) (Auto) 70.9 40.0-77.0 % Lymphocytes (%) (Auto) 18.3 L 21.0-51.0 % Monocytes (%) (Auto) 7.4 3.0-13.0 % Eosinophils (%) (Auto) 1.3 0.0-8.0 % Basophils (%) (Auto) 0.8 0.0-5.0 % Neutrophils # (Auto) 7.9 H 1.8-7.7 K/uL Lymphocytes # (Auto) 2.1 1.0-4.8 K/uL Monocytes # (Auto) 0.8 0.1-1.0 K/uL Eosinophils # (Auto) 0.15 0.00-0.70 K/uL Basophils # (Auto) 0.09 0.00-0.20 K/uL Absolute Immature Granulocyte (auto 0.15 0-1 K/uL Nucleated Red Blood Cells 0.2 H 0.0-0.19 % Chemistry Labs: Test 01/25/25 13:46 01/25/25 04:16 01/24/25 07:36 01/24/25 05:50 Range/Units Whole Blood Glucose 241 H 70-110 MG/DL Sodium Level 144 136-145 mmol/L Potassium Level 3.2 L 3.5-5.1 mmol/L Chloride Level 112 H 101-111 mmol/L Carbon Dioxide Level 19 L 21-32 mmol/L Blood Urea Nitrogen 40 H 7-18 mg/dL Creatinine 2.6 H 0.5-1.0 mg/dL Glomerular Filtration Rate Calc 20 >90 mL/min Random Glucose 263 #H 70-105 mg/dL Total Calcium 7.3 L 8.5-10.1 mg/dL Phosphorus Level 4.4 2.5-4.9 mg/dL Magnesium Level 2.20 1.80-2.40 mg/dL Total Bilirubin 0.3 0.2-1.0 mg/dL Aspartate Amino Transf (AST/SGOT) 25 10-37 U/L Alanine Aminotransferase (ALT/SGPT) 9 L 12-78 U/L Alkaline Phosphatase 96 50-136 U/L Total Protein 4.4 L 6.0-8.3 g/dL Albumin 1.2 #L 3.5-5.0 g/dL Thyroid Stimulating Hormone (TSH) 5.06 #H 0.36-3.74 uIU/mL Lactic Acid Level 1.4 0.8-2.5 mmol/L Uric Acid 6.8 2.6-7.2 mg/dL Iron Level 28 L 50-170 mcg/dL Total Iron Binding Capacity 44 L 250-450 mcg/dL Percent Iron Saturation 63.6 H 22-44 % Ferritin 1612 H 15-150 ng/mL Test 01/23/25 17:51 Range/Units Troponin I High Sensitivity 507 *H 4-50 ng/L Coagulation Labs: Test 01/25/25 07:45 Range/Units Prothrombin Time 12.9 H 9.6-11.6 SEC Prothromb Time International Ratio 1.24 H 0.85-1.15 Activated Partial Thromboplast Time 36.2 H 26.3-35.5 SEC DIAGNOSTICS / RADIOLOGY: [facility] [address] [place] [address] IMAGING REPORT Signed PATIENT: JUSTIN KLINE MR#: [id number] : 1955 SEX: F AGE: 70 LOCATION: 2[facility] ORDER 1143 STATUS: ADM IN REPORT#: [id number] SERVICE 1131 REASON: new onset swelling in her arms ORDERING PHYSICIAN: KIRSTEN KRUSE MD PROCEDURE: VENOUS ALCIDES - US VENOUS DOPPLER BILATERAL EXAMINATION: SPECTRAL DOPPLER ULTRASOUND EXAMINATION OF THE BILATERAL UPPER EXTREMITY VEINS. CLINICAL HISTORY: Swelling. COMPARISON: None. TECHNIQUE: Grayscale, color, and spectral Doppler images of the bilateral upper extremity veins are submitted. FINDINGS: Right: The cephalic and brachial veins are patent. These veins show normal flow with physiological changes of phasicity and augmentation. There is thrombosis in the subclavian, axillary, and basilic veins. Left: The internal jugular, subclavian, axillary, basilic, brachial veins are patent. These veins show normal flow with physiological changes of phasicity and augmentation. IMPRESSION: Deep vein thrombosis in the right subclavian and axillary veins. Right basilic vein thrombosis. The space technologist informed the patient's nurse at the time of the exam. /[place] DICTATED BY: GOVIND HAYES MD DATE: 01/25/25722 ELECTRONICALLY SIGNED BY: GOVIND HAYES MD DATE: 01/25/25722 PATIENT: JUSTIN KLINE MR#: [id number] : 1955 SEX: F AGE: 70 LOCATION: 2[facility] ORDER 2300 STATUS: ADM IN REPORT#: [id number] SERVICE 0600 REASON: vented pt ORDERING PHYSICIAN: KARL RODRIGUEZ PROCEDURE: CXR1VW - CHEST 1VW EXAM: CR Chest, 1 View. CLINICAL HISTORY: vented pt COMPARISON: None provided. FINDINGS: LUNGS: Endotracheal tube midline above arminda Slight worsening left lower lobe infiltrate PLEURAL SPACES: No evidence of pleural effusion or pneumothorax. MEDIASTINUM: Cardiac size and mediastinal contours within normal limits. BONES: No acute osseous abnormality. IMPRESSION: 1. Endotracheal tube midline above arminda 2. Slight worsening left lower lobe infiltrate /[place] DICTATED BY: ANA ALSTON MD DATE: 01/24/252109 ELECTRONICALLY SIGNED BY: ANA ALSTON MD DATE: 01/24/252109 PATIENT: JUSTIN KLNIE MR#: [id number] : 1955 SEX: F AGE: 70 LOCATION: [facility] ORDER 1301 STATUS: ADM IN REPORT#: [id number] SERVICE 1258 REASON: Decreased renal function ORDERING PHYSICIAN: SAUMYA ANTONIO PROCEDURE: RENAL - US RENAL SONOGRAM EXAMINATION: ULTRASOUND OF THE RETROPERITONEUM. CLINICAL HISTORY: Decreased renal function. COMPARISON: CT abdomen and pelvis without contrast dated 01/22/2025. TECHNIQUE: Real-time grayscale ultrasound images of the kidneys. FINDINGS: The right kidney is smaller in caliber, and the left kidney is normal in caliber, the right kidney measures 7.4 x 3.9 x 3.1 cm and the left kidney measures 8.2 x 3.0 x 3.3 cm in its craniocaudal, AP, and transverse dimensions respectively. There is normal renal cortical thickness and increased cortical echogenicity. There is no renal calculus or hydronephrosis. The urinary bladder is empty. There is Kamara???s bulb. IMPRESSION: Relatively small right kidney. Increased echogenicity of both the kidneys may reflect renal parenchymal disease. Recommend clinical correlation and with laboratory parameters. Kamara???s bulb is in situ. /[place] DICTATED BY: RADHA BECERRA Jr., MD DATE: 01/23/252300 ELECTRONICALLY SIGNED BY: RADHA BECERRA Jr., MD DATE: 01/23/252300 PATIENT: JUSTIN KLINE MR#: [id number] : 1955 SEX: F AGE: 70 LOCATION: 2[facility] ORDER 0745 STATUS: ADM IN REPORT#: [id number] SERVICE REASON: intubated,congestion ORDERING PHYSICIAN: KARL RODRIGUEZ PROCEDURE: CXR1VW - CHEST 1VW EXAM: CR Chest, 1 View. CLINICAL HISTORY: intubated,congestion COMPARISON: 01/22 16:55 EDT CR - CHEST 1VW FINDINGS: ET tube 3.7 cm above the arminda. LUNGS: The lungs show no infiltrate or other acute finding. PLEURAL SPACES: No pleural effusion or pneumothorax. MEDIASTINUM: Cardiac size and mediastinal contours within normal limits. BONES: No acute osseous abnormality. IMPRESSION: No acute cardiopulmonary pathology is evident. ET tube 3.7 cm above the arminda. /[place] DICTATED BY: RADHA BECERRA Jr., MD DATE: 01/23/250 ELECTRONICALLY SIGNED BY: RADAH BECERRA Jr., MD DATE: 01/23/25 101 PATIENT: JUSTIN KLINE MR#: [id number] : 1955 SEX: F AGE: 70 LOCATION: 2[facility] ORDER 23 STATUS: ADM IN REPORT#: [id number] SERVICE 22 REASON: NG tube location ORDERING PHYSICIAN: KENA HAWLEY MD PROCEDURE: ABD 1VW - ABD 1VW ADDENDUM REPORT ADDENDUM: Results were shared by telephone at 10:10 pm on 01-22-[address]MAMACHEN [facility]. /[place]astern EXAM: CR Abdomen, 1 View. CLINICAL HISTORY: NG tube location COMPARISON: None provided. FINDINGS: BOWEL: The bowel gas pattern is within normal limits. PERITONEUM/SOFT TISSUES: No free air evident. No pathologic appearing calcification. BONES: No acute osseous abnormality. MISCELLANEOUS: No nasogastric tube identified. Gastrostomy tube left upper IMPRESSION: 1. No nasogastric tube identified. 2. Gastrostomy tube left upper quadrant /[place] DICTATED BY: ANA ALSTON MD DATE: 01/22/252210 ELECTRONICALLY SIGNED BY: DATE: EXAM: CR Abdomen, 1 View. CLINICAL HISTORY: NG tube location COMPARISON: None provided. FINDINGS: BOWEL: The bowel gas pattern is within normal limits. PERITONEUM/SOFT TISSUES: No free air evident. No pathologic appearing calcification. BONES: No acute osseous abnormality. MISCELLANEOUS: No nasogastric tube identified. Gastrostomy tube left upper IMPRESSION: 1. No nasogastric tube identified. 2. Gastrostomy tube left upper quadrant /[place] DICTATED BY: ANA ALSTON MD DATE: 01/22/252200 ELECTRONICALLY SIGNED BY: ANA ALSTON MD DATE: 01/22/252200 PATIENT: JUSTIN KLINE MR#: [id number] : 1955 SEX: F AGE: 70 LOCATION: 2CH ORDER 50 STATUS: ADM IN REPORT#: [id number] SERVICE 49 REASON: post intubation CXR ORDERING PHYSICIAN: KARL RODRIGUEZ PROCEDURE: CXR1VW - CHEST 1VW ADDENDUM REPORT ADDENDUM: Results were shared by telephone at 6:33 pm on 01-22-25 and acknowledged by patient's nurse JESSICA Mas. /[place] EXAM: CR Chest, 2 View. CLINICAL HISTORY: post intubation CXR COMPARISON: None provided. FINDINGS: LUNGS: Endotracheal tube appears midline above arminda PLEURAL SPACES: No pleural effusion or pneumothorax. MEDIASTINUM: The cardiomediastinal silhouette is within normal limits. BONES: No acute osseous abnormality. MISCELLANEOUS: Question nasogastric tube in the thoracic inlet. IMPRESSION: 1. Endotracheal tube appears midline above arminda 2. Question nasogastric tube in the thoracic inlet. /[place] DICTATED BY: ANA ALSTON MD DATE: 01/22/251835 ELECTRONICALLY SIGNED BY: DATE: EXAM: CR Chest, 2 View. CLINICAL HISTORY: post intubation CXR COMPARISON: None provided. FINDINGS: LUNGS: Endotracheal tube appears midline above arminda PLEURAL SPACES: No pleural effusion or pneumothorax. MEDIASTINUM: The cardiomediastinal silhouette is within normal limits. BONES: No acute osseous abnormality. MISCELLANEOUS: Question nasogastric tube in the thoracic inlet. IMPRESSION: 1. Endotracheal tube appears midline above arminda 2. Question nasogastric tube in the thoracic inlet. /[place] DICTATED BY: ANA ALSTON MD DATE: 01/22/251821 ELECTRONICALLY SIGNED BY: ANA ALSTON MD DATE: 01/22/251821 PATIENT: JUSTIN KLINE MR#: [id number] : 1955 SEX: F AGE: 70 LOCATION: [facility] ORDER 1512 STATUS: ADM IN REPORT#: [id number] SERVICE 1509 REASON: transaminitis rule out CBD dilation/obstruction cholangitis ORDERING PHYSICIAN: KARL RODRIGUEZ PROCEDURE: ABDRUQLTD - US ABDOMINAL RUQ\LTD EXAMINATION: ULTRASOUND OF THE ABDOMEN (LIMITED) WITH COLOR DOPPLER. CLINICAL HISTORY: Transaminitis. To rule out CBD obstruction. COMPARISON: CT abdomen and pelvis without contrast from the same day. TECHNIQUE: Real-time grayscale ultrasound images of the abdomen. In addition, color Doppler is medically necessary to perform in order to evaluate vascularity and blood flow. FINDINGS: Liver: Normal in caliber, the right hepatic lobe measures 15.4 cm in the craniocaudal dimension. There is increased echogenicity of the hepatic parenchyma. There is no focal hepatic abnormality or intrahepatic biliary ductal dilatation. There is normal spectral Doppler of the main portal vein. Gallbladder: Within normal limits with normal wall thickness (0.22 cm). No hyperemia or pericholecystic free fluid. There are few calculi, the largest measure 1.5 cm. Common bile duct is normal in caliber, measuring 0.28 cm. Pancreas: Obscured by overlying bowel gas. The right kidney is normal in caliber, the right kidney measures 8.2 x 3.3 x 2.9 cm in craniocaudal, AP, and transverse dimensions respectively. There is normal renal cortical thickness, and cortical echogenicity. There is no renal calculus or hydronephrosis. IMPRESSION: Hepatic steatosis. Cholelithiasis. No cholecystitis. /[place] DICTATED BY: GOVIND HAYES MD DATE: 01/23/25856 ELECTRONICALLY SIGNED BY: GOVIND HAYES MD DATE: 01/23/25856 PATIENT: JUSTIN KLINE MR#: [id number] : 1955 SEX: F AGE: 70 LOCATION: [facility] ORDER 26 STATUS: ADM IN REPORT#: [id number] SERVICE 25 REASON: PERICARDIAL EFFUSION. Please also assess EF ORDERING PHYSICIAN: KENA HAWLEY MD PROCEDURE: ECHO CMP - ECHO 2-D COMPLETE APPROVED REPORT EXAM: Two-dimensional and M-mode echocardiogram with Doppler and color Doppler. INDICATION ICD: Assess pericardial effusion and ejection fraction 2D Dimensions RVDd 3.0 cm LVEF(%) 49.3 (>50%) LVED Vol(simp.) 20.0 mL IVSd 1.9 (0.7-1.1cm) FS(%) 23 % LVES Vol(simp.) 9.0 mL LVDd 2.4 (3.8-5.6cm) LA (2D) 2.6 (1.6-4.0cm) LVEF(%, simp.) 55 % PWd 2.0 (0.7-1.1cm) Ao Root(2D) 2.7 (2.0-3.7cm) LA ESV INDEX (BP) 22.00 mL/m2 IVSs 2.0 cm LVOT diam 2.0 (1.8-2.4cm) LVDs 1.8 (2.5-4.0cm) IVC diam 1.2 cm PWs 1.7 cm Deformation Strain Apical 4 -7.1 % Apical 2 -6.9 % Apical 3 -10.1 % Global Strain -8.0 % M-Mode Dimensions EPSS 0.8 cm LA (MM) 2.3 (1.6-4.0cm) Ao Root(MM) 2.9 (2.0-3.7cm) Aortic Valve AoV Vmax 2.1 m/s Ao Peak GR 17.0 mmHg LVOT Vmax 2.1 m/s AoV VTI 0.2 m Ao Mean GR 8.4 mmHg LVOT VTI 0.22 m YASMEEN (VMAX) 3.02 cm2 YASMEEN (VTI) 3.6 cm2 Mitral Valve MV E Vmax 51.6 cm/s DECEL Time 82 ms MV A Vmax 69.0 cm/s P 1/2 T 19 ms E/A ratio 0.7 MVA (PHT) 11.9 cm2 TDI E/E' Medial 6.8 E/E' Lateral 9.3 Medial E' Peak V 7.57 cm/s Lateral E' Peak V 5.54 cm/s Pulmonary Valve PV Vmax 1.3 m/s PV VTI 0.14 m PV Mean GR 3.5 mmHg PV Peak GR 6.5 mmHg Tricuspid Valve TR Vmax 1.5 m/s RAP (EST) 3 mmHg RVSP 12.4 mmHg TR Peak GR 9.4 mmHg Left Ventricle Left ventricular cavity is small. GLS -8.0% Severe concentric left ventricular hypertrophy. LVEF is 50-55%. The left ventricular diastolic function is normal. Right Ventricle The right ventricle is normal size. The right ventricular systolic function is normal. Atria The left atrium size is normal. The right atrium is small in size. Aortic Valve The aortic valve is normal in structure. No aortic regurgitation is present. There is no aortic valvular stenosis. Mitral Valve The mitral valve is normal in structure. There is trace of mitral valve r egurgitation noted. There is no mitral valve stenosis. Tricuspid Valve The tricuspid valve is normal in structure. There is trace of tricuspid valve regurgitation noted. Pulmonic Valve Pulmonic valve is not well visualized. There is no pulmonic valvular regurgitation. Great Vessels The aortic root is normal in size. The IVC is normal in size and collapses >50% with inspiration. Pericardium There is no pericardial effusion. Other Information Quality : Technically difficult study due to body habitus, pt intubated Rhythm : Tachycardia Conclusion LVEF is 50-55%. Severe concentric left ventricular hypertrophy. The left ventricular diastolic function is normal. There is no pericardial effusion. DICTATED BY: GIULIANA AWAN DO DATE: 01/22/25 1318 ELECTRONICALLY SIGNED BY: GIULIANA AWAN DO DATE: 01/23/25 0743 PATIENT: JUSTIN KLINE MR#: [id number] : 1955 SEX: F AGE: 70 LOCATION: [facility] ORDER 1152 STATUS: ADM IN REPORT#: [id number] SERVICE 1151 REASON: S/P INTUBATION. ET tube position ORDERING PHYSICIAN: KENA HAWLEY MD PROCEDURE: CXR1VW - CHEST 1VW EXAM: CR Chest, 2 View. CLINICAL HISTORY: S/P INTUBATION. ET tube position COMPARISON: Radiograph from January 22 at 8:53 AM FINDINGS: Endotracheal tube terminates 1.4 cm above the arminda. LUNGS: There is no mass, infiltrate, or acute pulmonary abnormality. PLEURAL SPACES: No pleural effusion or pneumothorax. MEDIASTINUM: Cardiac size and mediastinal contours within normal limits. Atherosclerosis of the thoracic aorta. BONES: No acute osseous abnormality. IMPRESSION: 1. Endotracheal tube positioned 1.4 cm above the arminda. 2. No acute cardiopulmonary abnormality. /[place] DICTATED BY: RADHA BECERRA Jr., MD DATE: 01/22/251309 ELECTRONICALLY SIGNED BY: RADHA BECERRA Jr., MD DATE: 01/22/251309 PATIENT: JUSTIN KLINE MR#: [id number] : 1955 SEX: F AGE: 70 LOCATION: [facility] ORDER 8 STATUS: REG REPORT#: [id number] SERVICE 7 REASON: gi bleed ORDERING PHYSICIAN: JULISA PETERSON MD PROCEDURE: ABD PEL WO - CT ABDOMEN/PELVIS W/O CONTRAST CT ABDOMEN/PELVIS W/O CONTRAST REASON: gi bleed COMPARISON: None. FINDINGS: Lung bases are clear. There is a small left-sided pleural effusion. There is coronary calcifications suggesting coronary artery disease. There is suggestion of small pericardial effusion. There is a moderate size hiatal hernia. . There are no focal liver lesions. There are normal-appearing kidneys.. Spleen and pancreas appear unremarkable. The gallbladder appears normal as well. There is a feeding gastrostomy tube in place. Bowel loops appear unremarkable. This includes normal appearance of the appendix . There is fecal stasis in the rectal vault. Abutting the right lobe of the bowel in the right lower quadrant and abutting the right psoas muscle there is a a cystic structure measuring 5.9 x 3.9 cm. There is no evidence of free fluid or intraperitoneal air. There are no focal fluid collections. The retroperitoneum appear normal as do pelvic soft tissue structures. Aorta and iliac vessels demonstrate diffuse atherosclerotic changes. The anterior abdominal wall is intact. Osseous structures appear unremarkable. The uterus is surgically absent. IMPRESSION: 1. No acute process seen in CT of abdomen and pelvis without intravenous contrast 2. In the right adnexal region there is a cystic structure measuring 5.9 x 3.9 cm 3. Fecal stasis impaction seen in the rectal vault CT was performed with one or more following dose reduction techniques: automated exposure control, adjustment of the mA and kv according to patient's size, or use of a iterative reconstruction technique. DICTATED BY: RENA MADDOX MD DATE: 01/22/251043 ELECTRONICALLY SIGNED BY: RENA MADDOX MD DATE: 01/22/25 105 PATIENT: JUSTIN KLINE MR#: [id number] : 1955 SEX: F AGE: 70 LOCATION: [facility] ORDER 8 STATUS: [facility] REPORT#: [id number] SERVICE REASON: gi bleed ORDERING PHYSICIAN: JULISA PETERSON MD PROCEDURE: ABD PEL WO - CT ABDOMEN/PELVIS W/O CONTRAST CT ABDOMEN/PELVIS W/O CONTRAST REASON: gi bleed COMPARISON: None. FINDINGS: Lung bases are clear. There is a small left-sided pleural effusion. There is coronary calcifications suggesting coronary artery disease. There is suggestion of small pericardial effusion. There is a moderate size hiatal hernia. . There are no focal liver lesions. There are normal-appearing kidneys.. Spleen and pancreas appear unremarkable. The gallbladder appears normal as well. There is a feeding gastrostomy tube in place. Bowel loops appear unremarkable. This includes normal appearance of the appendix . There is fecal stasis in the rectal vault. Abutting the right lobe of the bowel in the right lower quadrant and abutting the right psoas muscle there is a a cystic structure measuring 5.9 x 3.9 cm. There is no evidence of free fluid or intraperitoneal air. There are no focal fluid collections. The retroperitoneum appear normal as do pelvic soft tissue structures. Aorta and iliac vessels demonstrate diffuse atherosclerotic changes. The anterior abdominal wall is intact. Osseous structures appear unremarkable. The uterus is surgically absent. IMPRESSION: 1. No acute process seen in CT of abdomen and pelvis without intravenous contrast 2. In the right adnexal region there is a cystic structure measuring 5.9 x 3.9 cm 3. Fecal stasis impaction seen in the rectal vault CT was performed with one or more following dose reduction techniques: automated exposure control, adjustment of the mA and kv according to patient's size, or use of a iterative reconstruction technique. DICTATED BY: RENA MADDOX MD DATE: 01/22/251043 ELECTRONICALLY SIGNED BY: RENA MADDOX MD DATE: 01/22/25 105 PATIENT: JUSTIN KLINE MR#: [id number] : 1955 SEX: F AGE: 70 LOCATION: [facility] ORDER 9 STATUS: REG ER REPORT#: [id number] SERVICE 7 REASON: cp ORDERING PHYSICIAN: JULISA PETERSON MD PROCEDURE: CXR1VW - CHEST 1VW EXAM: Chest radiograph 1 view HISTORY: Chest pain COMPARISON: None FINDINGS: No pulmonary consolidations. No pleural effusion or pneumothorax. Enlarged cardiac silhouette. Tortuous calcified aorta. No overt congestion. Degenerative changes. IMPRESSION: No acute cardiopulmonary disease. /[place] DICTATED BY: DESTINY CASTELLANOS MD DATE: 01/22/251058 ELECTRONICALLY SIGNED BY: DESTINY CASTELLANOS MD DATE: 01/22/251058 ASSESSMENT: Acute renal failure Anemia Septic shock requiring pressors, POA Acute metabolic encephalopathy POA Acute Hypoxic rep failure requiring intubation for airway protection POA Acute complicated cystitis POA Acute on chronic anemia 2/ GI Bleed (Hematemesis) POA Hyperglycemia in the presence of type 2 diabetes mellitus, POA right adnexal region there is a cystic structure measuring 5.9 x 3.9 cm Thrombocytosis Hypokalemia Electrolyte derangement (hypokalemia, hypocalcemia) severe Hypoalbuminemia Malnutrition Transaminitis Elevated TSH suspected myxedema Uncontrolled type 2 diabetes mellitus Essential hypertension Anemia Prior history of CVA Right [id number] amputation G-tube in situ Bed ridden Recent hospitalization [facility] for hematemesis PLAN: Labs, diagnostic, radiologic exams reviewed and interpreted by myself and supervising physician. We have reviewed external records in detail Pending NM bleeding scan Require close monitoring of renal function and electrolytes Order CBC, CMP, and electrolytes in am Continue with antibiotics Continue mechanical ventilation and sedation Continue with IV pressors Monitor blood pressure adjust medication doses as needed Avoid hypotensive episodes May use Dilaudid 0.5 mg IV every 6 hours as needed for severe pain Monitor blood sugars Strict intake, output, and daily weight should be monitored Please renally adjust medications Avoid nephrotoxic and nonsteroidal drugs Avoid contrast if possible Will continue to monitor renal function, anemia, electrolytes Treatment plan discussed with patient Questions were answered We have discussed with the other team physicians in detail about the care plan We will continue to monitor the patient closely Total critical care time spent with patient, nursing staff, critical care team over 35 minutes ATTESTATION BY PHYSICIAN I have seen and examined the patient. I reviewed the documentation, medical decision making, and treatment plan as noted by the mid-level provider above. I agree with the findings and plan of care. CHRISTELLE SIMENTAL MD, [facility] Jan 25, 2025 14:02
--- NOTE | 2025-01-25 15:54 | NUR ---
[facility] Consult: Patient assessed by wound healing team. See wound assessment. Assessment and recommendations for medihoney dressing provided to primary nurse. Unable to provide education for wound care treatment, pressure ulcer prevention to patient d/t intubated/sedated, no family at bedside. Addendum: 01/26/25 at 1616 by IVANIA ANDREW RN RN/JOHNNY Amended: Links added.
--- NOTE | 2025-01-25 16:04 | HMCIMG ---
CHEST 1VW REASON: picc placement COMPARISON: Prior chest radiograph from 01/25/2025 at 1534 is available. FINDINGS: Single view of the chest was obtained. Lungs are clear. Heart size is normal. There is uncoiling atherosclerotic change of thoracic ureter. There is no pulmonary vascular congestion. Mediastinum and bony thorax appear unremarkable. There is a right-sided PIC catheter tip in superior vena cava at the cavoatrial junction. Endotracheal tube is in satisfactory position. IMPRESSION: 1. Support lines are in satisfactory position.. 2. No evidence of airspace consolidation or pulmonary venous congestion.
[2025-01-25] MEDS: PEG 3350/NA SULF,BICARB,CL/KCL 4000 ML SOLN PO ONE (16:12)
--- NOTE | 2025-01-25 16:42 | NUR ---
NURSING NOTE RIGHT UPPER ARM PICC LINE INSERTED BY PICC LINE NURSE MELLO WITH RGV PICCS. DR. FABIANA ROSENBERG, LINE WAS D/C PER MD ORDER. Addendum: 01/25/25 at 1720 by MARYANNE TRUONG RN RN NURSING NOTE RIGHT UPPER ARM PICC LINE INSERTED BY PICC LINE NURSE MELLO WITH RGV PICCS. DR. FABIANA ROSENBERG, LINE WAS D/C PER MD ORDER. PATIENT TOLERATED WELL. CARE ONGOING.
--- NOTE | 2025-01-25 17:14 | CONS ---
CONSULTATION NOTE Date of Service: Jan 25, 2025 Reason for Consultation: [ coccyx wound/left buttock wound ] Requesting Physician: [ Vikas ] HISTORY OF PRESENT ILLNESS: Patient is evaluated at bedside in room 217 for initial wound care evaluation. The patient is a 70-year-old female with past medical history of diabetes mellitus type 2, hypertension, anemia, history of CVA, history of right below- knee amputation who presented to the hospital secondary to hematemesis. Patient is currently intubated and sedated. The patient's history is mostly obtained from medical records. The patient was noted to have black colored vomit at home which started day before admission. She has a history of peptic ulcer disease. She also has a PEG tube placed around two weeks ago. Peg tube was placed in [facility]. Labs were Notable for white count of 9.1, hemoglobin was 9.1, MCV was 86.7, platelet count was 456 K, sodium was 138, potassium was 3.1, bicarb was , creatinine was 1.7, glucose was 234, alk-phos was 153, total protein was 5.0, albumin was 0.9, lipase was negative normal. Patient underwent a CT abdomen pelvis which showed no acute process in the CT abdomen without IV contrast. Patient was noted to have cystic structure in the right adrenal region measuring 5.9 x 3.9 cm. The patient also had fecal impaction noted. In the ED patient had episode of hematemesis and she was in tubated for airway protection by ED provider. REVIEW OF SYSTEMS Unable to complete patient is intubated and sedated PAST MEDICAL HISTORY: Diabetes mellitus type 2, hypertension, anemia, history of CVA history of right below-knee amputation PAST SURGICAL HISTORY: Right below-knee amputation History of PEG tube placement PAST SOCIAL HISTORY: Unable to obtain FAMILY HISTORY: Unable to obtain Coded Allergies: No Known Drug Allergies (Unverified Allergy, Unknown, 01/22/25) Coded Allergies: No Known Drug Allergies (Unverified Allergy, Unknown, 01/22/25) PHYSICAL EXAM EYES: Anicteric. Pupils equal and reactive. HENT: No oral thrush seen, moist Oral mucosa NECK: Supple, no JVD or thyromegaly. LUNGS: decreased breath sounds CARDIOVASCULAR: S1, S2 regular. No murmur heard. ABDOMEN: Soft, non tender, bowel sounds present, no organomegaly CENTRAL NERVOUS SYSTEM: intubated and sedated SKIN: Unstageable ulcer to left buttock noted with 100% slough with periwound erythema and unstageable ulcer to coccyx noted with 100% slough and periwound erythema LYMPHATICS: No peripheral lymphadenopathy MUSCULOSKELETAL: Right BKA EXTREMITIES: No cyanosis or clubbing BACK: No deformity GENITOURINARY: No dysuria or hematuria Vital Sign (Last 24 Hours) 01/23/25 01/25/25 01/25/25 01/25/25 08:14 12:00 14:15 15:01 Temp 98.1 Pulse 68 Resp 14 B/P (MAP) 106/52 (70) Pulse Ox 100 O2 Delivery Ventilator+ O2 Flow Rate 10.0 FiO2 30 Intake & Output (last 24hrs) 01/24/25 01/24/25 01/25/25 15:00 23:00 07:00 Intake Total 106.3 ml 241.5 ml 256.0 ml Balance 106.3 ml 241.5 ml 256.0 ml LABS: Laboratory: Test 01/25/25 16:19 01/25/25 16:17 01/25/25 14:07 01/25/25 07:45 Range/Units Vancomycin Level Trough 15.5 10.0-20.0 UG/ML Whole Blood Glucose 212 H 70-110 MG/DL Hemoglobin 7.4 #L 12.0-16.0 g/dL Hematocrit 22.1 #L 36-48 % Prothrombin Time 12.9 H 9.6-11.6 SEC Prothromb Time International Ratio 1.24 H 0.85-1.15 Activated Partial Thromboplast Time 36.2 H 26.3-35.5 SEC Test 01/25/25 05:20 01/25/25 04:16 01/25/25 03:37 01/24/25 11:50 Range/Units White Blood Count 11.2 H 4.8-10.8 K/uL Red Blood Count 1.95 L 4.00-5.50 MIL/uL Mean Corpuscular Volume 87.2 79-99 fL Mean Corpuscular Hemoglobin 30.3 27.0-33.0 pg Mean Corpuscular Hemoglobin Concent 34.7 32.0-36.0 g/dL Red Cell Distribution Width 17.1 H 11.0-15.5 % Platelet Count 273 # 130-400 K/uL Mean Platelet Volume 10.5 7.5-10.5 fL Immature Granulocyte % (Auto) 1.3 H 0-1 % Neutrophils (%) (Auto) 70.9 40.0-77.0 % Lymphocytes (%) (Auto) 18.3 L 21.0-51.0 % Monocytes (%) (Auto) 7.4 3.0-13.0 % Eosinophils (%) (Auto) 1.3 0.0-8.0 % Basophils (%) (Auto) 0.8 0.0-5.0 % Neutrophils # (Auto) 7.9 H 1.8-7.7 K/uL Lymphocytes # (Auto) 2.1 1.0-4.8 K/uL Monocytes # (Auto) 0.8 0.1-1.0 K/uL Eosinophils # (Auto) 0.15 0.00-0.70 K/uL Basophils # (Auto) 0.09 0.00-0.20 K/uL Absolute Immature Granulocyte (auto 0.15 0-1 K/uL Nucleated Red Blood Cells 0.2 H 0.0-0.19 % Sodium Level 144 136-145 mmol/L Potassium Level 3.2 L 3.5-5.1 mmol/L Chloride Level 112 H 101-111 mmol/L Carbon Dioxide Level 19 L 21-32 mmol/L Blood Urea Nitrogen 40 H 7-18 mg/dL Creatinine 2.6 H 0.5-1.0 mg/dL Glomerular Filtration Rate Calc 20 >90 mL/min Random Glucose 263 #H 70-105 mg/dL Total Calcium 7.3 L 8.5-10.1 mg/dL Phosphorus Level 4.4 2.5-4.9 mg/dL Magnesium Level 2.20 1.80-2.40 mg/dL Total Bilirubin 0.3 0.2-1.0 mg/dL Aspartate Amino Transf (AST/SGOT) 25 10-37 U/L Alanine Aminotransferase (ALT/SGPT) 9 L 12-78 U/L Alkaline Phosphatase 96 50-136 U/L Total Protein 4.4 L 6.0-8.3 g/dL Albumin 1.2 #L 3.5-5.0 g/dL Thyroid Stimulating Hormone (TSH) 5.06 #H 0.36-3.74 uIU/mL Blood Gas Specimen Type Arterial Arterial Blood pH 7.412 7.350-7.450 Arterial Blood Partial Pressure CO2 32 32-45 mmHg Arterial Blood Partial Pressure O2 134.3 H 83.0-108.0 mmHg Arterial Blood HCO3 19.7 L 21.0-28.0 mmol/L Arterial Blood Oxygen Saturation 98.1 H 94.0-98.0 % Arterial Blood Base Excess -4.4 L -2.0-3.0 mmol/L Hemoglobin (Blood Gas) 6.9 *L 12.0-16.0 g/dL Sodium (Blood Gas) 139 136-145 MMOL/L Bedside Potassium (Blood Gas) 3.1 L 3.4-4.5 MMOL/L Bedside Chloride (Blood Gas) 112 H 98-107 MMOL/L Bedside Glucose (Blood Gas) 256 H 65-95 MG/DL Bedside Ionized Calcium (Blood Gas) 1.13 L 1.15-1.33 MMOL/L Bedside Lactic Acid (Blood Gas) 1.22 H 0.36-0.75 MMOL/L Blood Gas Temperature 37.0 35.5-37.0 CELSIUS Blood Gas Respiration Rate 14.0 min. Blood Gas Vent Mode AC VC ROOM AIR FiO2 30.0 % Blood Gas Tidal Volume 400 ml Blood Gas PEEP 5 cm H2O Blood Gas Specimen Comment ANA RN ,RR Urine Color YELLOW YELLOW Urine Appearance TURBID H CLEAR Urine pH 5.5 5.0-8.0 Urine Specific [place] 1.024 1.001-1.031 Urine Protein >=300 H NEGATIVE mg/dL Urine Glucose (UA) NEGATIVE NEGATIVE mg/dL Urine Ketones 5 H NEGATIVE mg/dL Urine Occult Blood MODERATE H NEGATIVE Urine Nitrate NEGATIVE NEGATIVE Urine Bilirubin NEGATIVE NEGATIVE mg/dL Urine Urobilinogen 0.2 0.2-1.0 mg/dL Urine Leukocyte Esterase MODERATE H NEGATIVE Sunitha/uL Urine RBC 6-10 H 0-1 /HPF Urine WBC TNTC H 0-1 /HPF Urine Squamous Epithelial Cells Few 0-2 /HPF Urine Bacteria Rare None Seen /HPF Urine Yeast Few H None Seen /HPF Urine Random Sodium 43 40-220 mmol/l Urine Random Potassium 36 25-125 mmol/L Urine Random Chloride 40 L 110-250 mmol/L Test 01/24/25 07:36 01/24/25 05:50 01/23/25 17:51 Range/Units Lactic Acid Level 1.4 0.8-2.5 mmol/L Uric Acid 6.8 2.6-7.2 mg/dL Iron Level 28 L 50-170 mcg/dL Total Iron Binding Capacity 44 L 250-450 mcg/dL Percent Iron Saturation 63.6 H 22-44 % Ferritin 1612 H 15-150 ng/mL Troponin I High Sensitivity 507 *H 4-50 ng/L PROBLEM LIST : Medical Problems: Unstageable ulcer to coccyx Unstageable ulcer to left buttock PLAN: Wound care for coccyx and left buttock-Cleanse with normal saline, pat dry, apply medihoney, cover with allevyn, change daily and prn Keep wounds clean and dry Offloading/reposition q 2 hours Comorbidities per primary care team Further Management per hospital course. Thank You for the consult and allowing us to participate in the care of this patient. ATTESTATION BY PHYSICIAN I have seen and examined the patient. I reviewed the documentation, medical decision making, and treatment plan as noted by the mid-level provider above. I agree with the findings and plan of care. KRISTIN HERRERA MD, MICHELLE A NP Jan 25, 2025 17:13 KRISTIN HERRERA MD Feb 04, 2025 12:50
--- NOTE | 2025-01-25 17:37 | PN ---
[facility] PROGRESS NOTE Date of Service: Jan 25, 2025 Time of Service: 17:30 SUBJECTIVE: 70-year-old female with past medical history of diabetes mellitus type 2, hypertension, anemia, history of CVA, history of right below-knee amputation who presented to the hospital secondary to hematemesis. Patient is currently intubated and sedated. The patient's history is mostly obtained from patient's who is present at bedside and from ED provider. The patient was noted to have black colored vomit at home which started yesterday. She has a history of peptic ulcer disease. She also has a PEG tube placed around two weeks ago. Peg tube was placed in [facility]. Per patient is able to swallow better now. denied any fever, chills, shortness for breath, chest pain. History is fairly limited at this time as patient is not able to participate in conversation. Labs were Notable for white count of 9.1, hemoglobin was 9.1, MCV was 86.7, platelet count was 456 K, sodium was 138, potassium was 3.1, bicarb was , creatinine was 1.7, glucose was 234, alk-phos was 153, total protein was 5.0, albumin was 0.9, lipase was negative normal Underwent a CT abdomen pelvis which showed no acute process in the CT abdomen without IV contrast. Patient was noted to have cystic structure in the right adrenal region measuring 5.9 x 3.9 cm. The patient also had fecal impaction noted. In the ED patient had episode of hematemesis and she was intubated for airway protection by ED provider. 01/23/2025: The patient is examined at the bedside. She was sedated and not responsive during my visit. GI performed EGD in the morning and they have observed no active bleeding. Nurse notified an unstageable wound on sacrum for which Wound consult is placed today. We will be manage as per critical Care recommendations. 01/24/2025: The patient is examined at the bedside. She was sedated and not responsive during my visit. Her arms are swollen. Her vitals are normal except for blood pressure is 97/51. Her labs are in the normal range except for Hb is 6.6, chloride is 113, BUN is 39, creatinine is 2.4, iron is 28, TIBC is 44, % saturation is 63.6, TSH is 7.62. Her urine culture grew 10,000-50,000 CFU. Identification and susceptibility are in process. Blood culture show no growth after 48 hours. Renal ultrasound show renal parenchymal disease. As her hemoglobin is low she received a blood transfusion. After the transfusion her hemoglobin is 7.1. We ordered a bilateral upper limb doppler which showed evidence of DVT. Gastroenterology was consulted to give recommendations on starting anticoagulation. GI recommended high dose Protonix drip for 48 hours and carafate 1gm PO QID, after 48 hours start heparin drip. IR was called to ask about the option of placing an SVC filter, and they recommended mechanical thrombectomy. The patient is not a good candidate for an SVC filter. A urinalysis, urine electrolytes, urine protein were ordered today. Urinalysis showed turbid urine, protein >300, ketones 5, moderate occult blood, moderate leukocyte esterase, RBC 6 to 10, WBC is TNTC, protein 410.9, sodium is 43, potassium is 36, chloride is 40. 01/25/2025: The patient is examined at the bedside. She was sedated and not responsive during my visit. Her arms are swollen. Her vitals are normal. Her labs are in the normal range except for Hb is 5.9, WBC is 11.2, Cl is 112, potassium is 3.2, CO2 is 19, BUN is 40 creatinine is 2.6. As her hemoglobin is low we gave a transfusion and the repeat Hb is 7.4. Gastroenterology will do EGD and colonoscopy tomorrow morning. Hematology is consulted and they recommended same management. Wound care recommended to cleanse with normal saline, pat dry, apply medihoney, cover with allevyn, change daily and prnKeep wounds clean and dry , Offloading/reposition q 2 hours. Bleeding scan showed no evidence of gastrointestinal hemorrhage. REVIEW OF SYSTEMS Unable to obtain as patient is sedated PHYSICAL EXAM GENERAL APPEARANCE: He is currently intubated and sedated NEUROLOGICAL: Cranial nerves II-XII grossly intact. Motor is 5/5 in bilateral upper and lower extremities proximal to distal. No sensory deficits. HEENT: Face is symmetric. Pupils are equal and reactive. Extraocular movements are intact. NECK: Supple. No JVD. No thyromegaly. No submental, submandibular, pre- /postauricular, occipital or supraclavicular lymphadenopathy. CHEST: Normal chest expansion. No Telemetry. LUNGS: Absence of any rales, rhonchi or any wheezing. CARDIOVASCULAR: Regular. S1 and S2 normal. No appreciable rubs, murmurs or gallops. ABDOMEN: Soft, nontender, and nondistended. There is no rebound, voluntary guarding, or rigidity. Patient has a PEG tube in place : Deferred. No Kamara. EXTREMITIES: Below-knee amputation of the right lower extremity SKIN: No skin breakdown. Vital Signs (last 8hr) Date Time Temp Pulse Resp B/P (MAP) Pulse Ox O2 Delivery O2 Flow Rate FiO2 01/25/25 16:00 97.9 01/25/25 15:01 68 30 01/25/25 14:15 71 14 106/52 (70) 100 01/25/25 14:00 64 14 98/52 (67) 100 01/25/25 13:45 65 14 115/60 (78) 100 01/25/25 13:30 65 14 105/53 (70) 100 01/25/25 13:15 68 14 106/57 (73) 100 01/25/25 13:10 68 14 106/57 (73) 100 01/25/25 13:00 70 14 96/51 (66) 100 01/25/25 12:30 72 15 120/56 (77) 100 01/25/25 12:00 98.1 01/25/25 12:00 100 Ventilator+ 30 01/25/25 11:00 71 14 129/72 (91) 100 01/25/25 10:45 95 17 125/61 (82) 100 01/25/25 10:30 128 14 121/54 (76) 100 01/25/25 10:15 106 14 125/56 (79) 100 01/25/25 09:55 122 14 128/62 (84) 100 01/25/25 09:45 71 30 01/25/25 09:45 110 14 146/69 (94) 100 LABS: Laboratory: Test 01/25/25 16:19 01/25/25 16:17 01/25/25 14:07 01/25/25 07:45 Range/Units Vancomycin Level Trough 15.5 10.0-20.0 UG/ML Whole Blood Glucose 212 H 70-110 MG/DL Hemoglobin 7.4 #L 12.0-16.0 g/dL Hematocrit 22.1 #L 36-48 % Prothrombin Time 12.9 H 9.6-11.6 SEC Prothromb Time International Ratio 1.24 H 0.85-1.15 Activated Partial Thromboplast Time 36.2 H 26.3-35.5 SEC Test 01/25/25 05:20 01/25/25 04:16 01/25/25 03:37 01/24/25 11:50 Range/Units White Blood Count 11.2 H 4.8-10.8 K/uL Red Blood Count 1.95 L 4.00-5.50 MIL/uL Mean Corpuscular Volume 87.2 79-99 fL Mean Corpuscular Hemoglobin 30.3 27.0-33.0 pg Mean Corpuscular Hemoglobin Concent 34.7 32.0-36.0 g/dL Red Cell Distribution Width 17.1 H 11.0-15.5 % Platelet Count 273 # 130-400 K/uL Mean Platelet Volume 10.5 7.5-10.5 fL Immature Granulocyte % (Auto) 1.3 H 0-1 % Neutrophils (%) (Auto) 70.9 40.0-77.0 % Lymphocytes (%) (Auto) 18.3 L 21.0-51.0 % Monocytes (%) (Auto) 7.4 3.0-13.0 % Eosinophils (%) (Auto) 1.3 0.0-8.0 % Basophils (%) (Auto) 0.8 0.0-5.0 % Neutrophils # (Auto) 7.9 H 1.8-7.7 K/uL Lymphocytes # (Auto) 2.1 1.0-4.8 K/uL Monocytes # (Auto) 0.8 0.1-1.0 K/uL Eosinophils # (Auto) 0.15 0.00-0.70 K/uL Basophils # (Auto) 0.09 0.00-0.20 K/uL Absolute Immature Granulocyte (auto 0.15 0-1 K/uL Nucleated Red Blood Cells 0.2 H 0.0-0.19 % Sodium Level 144 136-145 mmol/L Potassium Level 3.2 L 3.5-5.1 mmol/L Chloride Level 112 H 101-111 mmol/L Carbon Dioxide Level 19 L 21-32 mmol/L Blood Urea Nitrogen 40 H 7-18 mg/dL Creatinine 2.6 H 0.5-1.0 mg/dL Glomerular Filtration Rate Calc 20 >90 mL/min Random Glucose 263 #H 70-105 mg/dL Total Calcium 7.3 L 8.5-10.1 mg/dL Phosphorus Level 4.4 2.5-4.9 mg/dL Magnesium Level 2.20 1.80-2.40 mg/dL Total Bilirubin 0.3 0.2-1.0 mg/dL Aspartate Amino Transf (AST/SGOT) 25 10-37 U/L Alanine Aminotransferase (ALT/SGPT) 9 L 12-78 U/L Alkaline Phosphatase 96 50-136 U/L Total Protein 4.4 L 6.0-8.3 g/dL Albumin 1.2 #L 3.5-5.0 g/dL Thyroid Stimulating Hormone (TSH) 5.06 #H 0.36-3.74 uIU/mL Blood Gas Specimen Type Arterial Arterial Blood pH 7.412 7.350-7.450 Arterial Blood Partial Pressure CO2 32 32-45 mmHg Arterial Blood Partial Pressure O2 134.3 H 83.0-108.0 mmHg Arterial Blood HCO3 19.7 L 21.0-28.0 mmol/L Arterial Blood Oxygen Saturation 98.1 H 94.0-98.0 % Arterial Blood Base Excess -4.4 L -2.0-3.0 mmol/L Hemoglobin (Blood Gas) 6.9 *L 12.0-16.0 g/dL Sodium (Blood Gas) 139 136-145 MMOL/L Bedside Potassium (Blood Gas) 3.1 L 3.4-4.5 MMOL/L Bedside Chloride (Blood Gas) 112 H 98-107 MMOL/L Bedside Glucose (Blood Gas) 256 H 65-95 MG/DL Bedside Ionized Calcium (Blood Gas) 1.13 L 1.15-1.33 MMOL/L Bedside Lactic Acid (Blood Gas) 1.22 H 0.36-0.75 MMOL/L Blood Gas Temperature 37.0 35.5-37.0 CELSIUS Blood Gas Respiration Rate 14.0 min. Blood Gas Vent Mode AC VC ROOM AIR FiO2 30.0 % Blood Gas Tidal Volume 400 ml Blood Gas PEEP 5 cm H2O Blood Gas Specimen Comment ANA RN ,RR Urine Color YELLOW YELLOW Urine Appearance TURBID H CLEAR Urine pH 5.5 5.0-8.0 Urine Specific [place] 1.024 1.001-1.031 Urine Protein >=300 H NEGATIVE mg/dL Urine Glucose (UA) NEGATIVE NEGATIVE mg/dL Urine Ketones 5 H NEGATIVE mg/dL Urine Occult Blood MODERATE H NEGATIVE Urine Nitrate NEGATIVE NEGATIVE Urine Bilirubin NEGATIVE NEGATIVE mg/dL Urine Urobilinogen 0.2 0.2-1.0 mg/dL Urine Leukocyte Esterase MODERATE H NEGATIVE Sunitha/uL Urine RBC 6-10 H 0-1 /HPF Urine WBC TNTC H 0-1 /HPF Urine Squamous Epithelial Cells Few 0-2 /HPF Urine Bacteria Rare None Seen /HPF Urine Yeast Few H None Seen /HPF Urine Random Sodium 43 40-220 mmol/l Urine Random Potassium 36 25-125 mmol/L Urine Random Chloride 40 L 110-250 mmol/L Test 01/24/25 07:36 01/24/25 05:50 01/23/25 17:51 Range/Units Lactic Acid Level 1.4 0.8-2.5 mmol/L Uric Acid 6.8 2.6-7.2 mg/dL Iron Level 28 L 50-170 mcg/dL Total Iron Binding Capacity 44 L 250-450 mcg/dL Percent Iron Saturation 63.6 H 22-44 % Ferritin 1612 H 15-150 ng/mL Troponin I High Sensitivity 507 *H 4-50 ng/L Current Medications Medications (Trade) Dose Ordered Sig/Arik Route PRN Reason Start Time Stop Time Status Last Admin Dose Admin Albumin Human 50 ml @ 0 mls/hr Q8H6 IV 01/24/25 14:00 01/24/25 22:00 DC 01/24/25 20:45 1,200 MLS/HR Artificial Tears (Artificial Tears) 1 DROP OR AD Q8H OU 01/23/25 19:30 02/22/25 19:29 01/25/25 13:53 1 DROP Bumetanide (Bumex 1mg Vial) 1 mg ONCE PRN IVP AFTER TRANSFUSION 01/24/25 08:00 01/24/25 09:23 DC Bumetanide (Bumex 1mg Vial) 2 mg ONCE PRN IVP AFTER TRANSFUSION 01/24/25 14:00 01/24/25 14:00 DC 01/24/25 13:28 2 MG Cefepime HCl (MAXipime 2 gm vial) 2 gm Q24H IVPB 01/23/25 12:00 02/02/25 11:59 01/25/25 13:53 2 GM Ceftriaxone Sodium (ROCEphine 1G INJ) 1 gm Q24H IVPB 01/22/25 12:00 01/22/25 16:25 DC 01/22/25 14:18 1 GM Chlorhexidine Gluconate (Peridex) 15 ml TID MM 01/23/25 21:00 02/06/25 20:59 01/25/25 09:25 15 ML Dextrose (D50w) 50 ml AD PRN IV HYPOGLYCEMIA PROTOCOL 01/22/25 15:30 02/21/25 15:29 Fentanyl Citrate 100 ml @ 2.5 mls/hr PROTOCOL IV 01/22/25 12:00 01/22/25 11:55 DC Fentanyl Citrate 100 ml @ 2.5 mls/hr PROTOCOL IV 01/22/25 12:00 01/29/25 11:59 01/25/25 17:04 2.5 MLS/HR Glucagon (Glucagon 1mg Kit) 1 mg AD PRN IM HYPOGLYCEMIA PROTOCOL 01/22/25 15:30 02/21/25 15:29 Insulin Human Regular (humuLIN R 100 UNIT/ML 3ML) INSULIN SLIDING SCAL... ACHS SQ 01/22/25 21:00 02/21/25 20:59 01/25/25 16:29 3 UNIT Leptospermum Honey ([facility]) 1 APPLICATION DAILY TP 01/26/25 09:00 02/25/25 08:59 Levetiracetam (kepPRA 500 MG TABLET) 500 mg BID PO 01/22/25 21:00 01/22/25 22:13 DC Levetiracetam 500 mg/Sodium Chloride 100 ml @ 400 mls/hr Q12H9 IV 01/22/25 22:00 02/21/25 21:59 01/25/25 09:35 400 MLS/HR Levothyroxine Sodium (SYNTHroid VIAL 100MCG) 100 mcg SYN IV 01/23/25 06:30 02/22/25 06:29 01/25/25 07:14 100 MCG Linezolid 300 ml @ 150 mls/hr Q12H IV 01/24/25 08:00 02/03/25 07:59 01/25/25 09:26 150 MLS/HR Magnesium Sulfate 50 ml @ 0 mls/hr PROTOCOL PRN IV Hypomagnesemia 01/22/25 15:30 02/21/25 15:29 01/23/25 09:56 0 MLS/HR Metronidazole/ Sodium Chloride 100 ml @ 100 mls/hr Q8H6 IVPB 01/22/25 22:00 02/01/25 21:59 01/25/25 13:53 100 MLS/HR Midazolam HCl 50 ml @ 0 mls/hr PROTOCOL IV 01/22/25 12:00 01/29/25 11:59 01/24/25 20:38 2 MLS/HR Norepinephrine 250 ml @ 0 mls/hr PROTOCOL IV 01/22/25 10:00 01/23/25 09:52 DC 01/22/25 14:24 60 MLS/HR Norepinephrine Bitartrate (Norepineph 16 Mg/250ml NS Premix) per protocol PROTOCOL IV 01/23/25 10:00 02/22/25 09:59 01/23/25 23:50 16 MG Octreotide Acetate 1250 mcg/ Sodium Chloride 250 ml @ 0 mls/hr PROTOCOL IV 01/22/25 12:30 01/22/25 12:17 DC Octreotide Acetate 1250 mcg/ Sodium Chloride 250 ml @ 0 mls/hr PROTOCOL IV 01/22/25 12:30 01/24/25 09:23 DC 01/22/25 12:41 5 MLS/HR Pantoprazole Sodium (PROTonix 40MG INJ) 40 mg BID IVP 01/24/25 21:00 01/24/25 15:02 DC Pantoprazole Sodium 80 mg/ Sodium Chloride 100 ml @ 10 mls/hr Q10H IV 01/22/25 09:00 01/24/25 09:23 DC 01/24/25 09:17 10 MLS/HR Pantoprazole Sodium 80 mg/ Sodium Chloride 100 ml @ 10 mls/hr Q10H IV 01/24/25 15:00 02/23/25 14:59 01/25/25 13:52 10 MLS/HR Pharmacy Profile Note (Pharmacy Communication) 1 each ONCE MISC 01/22/25 12:00 01/22/25 11:53 DC Pharmacy Profile Note (Pharmacy Communication) 1 each ONCE MISC 01/22/25 12:00 01/22/25 11:53 DC Pharmacy Profile Note (Pharmacy Communication) 1 each ONCE MISC 01/23/25 13:00 01/23/25 13:09 DC Pharmacy Profile Note (Pharmacy Communication) 1 each ONCE MISC 01/24/25 08:00 01/24/25 07:51 DC Phenylephrine HCl 100 mg/Sodium Chloride 250 ml @ 0 mls/hr AD PRN IV TITRATE 01/22/25 17:00 02/21/25 16:59 01/23/25 09:30 0 MLS/HR Potassium Chloride 100 ml @ 50 mls/hr AD PRN IV POTASSIUM PROTOCOL 01/22/25 15:30 01/24/25 07:50 DC Potassium Chloride 100 ml @ 100 mls/hr AD PRN IV POTASSIUM PROTOCOL 01/22/25 15:30 02/21/25 15:29 01/23/25 08:18 100 MLS/HR Potassium Chloride (K-Dur/Klor-Con 20meq) 20 meq AD PRN PO POTASSIUM PROTOCOL 01/22/25 15:30 02/21/25 15:29 Potassium Chloride (KCl 10% Elixir 20meq/15ml) 20 meq AD PRN PO POTASSIUM PROTOCOL 01/22/25 15:30 02/21/25 15:29 Propofol (DIPRivan 1000MG/ 100ML) 1,000 mg PROTOCOL PRN IV SEDATION 01/22/25 12:00 01/22/25 11:55 DC Sodium Bicarbonate (Sodium Bicarbonate) 650 mg BID PO 01/24/25 21:00 02/23/25 20:59 01/25/25 09:26 650 MG Sodium Chloride 1,000 ml @ 150 mls/hr Q6H40M IV 01/22/25 12:00 01/23/25 10:56 DC 01/23/25 02:45 150 MLS/HR Sucralfate (Carafate) 1 gm BID PO 01/23/25 21:00 01/23/25 11:41 DC Sucralfate (Carafate) 1 gm QID PO 01/24/25 17:00 02/23/25 16:59 01/25/25 16:11 1 GM Sucralfate (Carafate) 1 gm TID PO 01/23/25 14:00 01/24/25 15:02 DC 01/24/25 13:28 1 GM Thiamine HCl 100 mg/Sodium Chloride 50 ml @ 100 mls/hr Q24H IV 01/23/25 14:00 01/25/25 14:29 DC 01/25/25 13:53 100 MLS/HR Vancomycin HCl (Vancomycin 750mg) 750 mg Q24H IVPB 01/23/25 17:00 01/23/25 10:56 DC Vancomycin HCl (Vancomycin Protocol) 1 each AD IV 01/22/25 15:00 01/23/25 10:56 DC Vasopressin 40 units/Sodium Chloride 40 ml @ 0 mls/hr PROTOCOL IV 01/25/25 09:30 02/24/25 09:29 Wound Care/ Dressing Products (Venelex Ointment) BID TP 01/25/25 21:00 01/25/25 15:58 DC DIAGNOSTICS / RADIOLOGY: [address] [address] IMAGING REPORT Signed PATIENT: JUSTIN KLINE MR#: [id number] : 1955 SEX: F AGE: 70 LOCATION: H ORDER 09 STATUS: ADM IN REPORT#: [id number] SERVICE [id number] REASON: HGB drop, assess for possible GI bleed ORDERING PHYSICIAN: KIRSTEN KRUSE MD PROCEDURE: GIBLEED - NM GI BLOOD LOSS IMAG Examination NM radiolabeled red blood cell study History Gastrointestinal bleeding Technique After IV administration of Tc-99m labeled red autologous blood cells, anterior projection images of the abdomen and pelvis were obtained dynamically for one hour. Findings Following administration of radiolabeled red blood cells, there is normal activity seen in cardiovascular and genitourinary structures, the liver and spleen. There is no evidence for extravasation of radiolabeled red blood cells during the examination. IMPRESSION: No evidence of gastrointestinal hemorrhage during the course of examination acquisition. /[place] DICTATED BY: RADHA BECERRA Jr., MD DATE: 01/25/251457 ELECTRONICALLY SIGNED BY: RADHA BECERRA Jr., MD DATE: 01/25/25 1457 [place] [address] [id number] IMAGING REPORT Signed PATIENT: JUSTIN KLINE MR#: [id number] : 1955 SEX: F AGE: 70 LOCATION: 2CH ORDER 1143 STATUS: ADM IN REPORT#: [id number] SERVICE 1131 REASON: new onset swelling in her arms ORDERING PHYSICIAN: KIRSTEN KRUSE MD PROCEDURE: VENOUS ALCIDES - US VENOUS DOPPLER BILATERAL EXAMINATION: SPECTRAL DOPPLER ULTRASOUND EXAMINATION OF THE BILATERAL UPPER EXTREMITY VEINS. CLINICAL HISTORY: Swelling. COMPARISON: None. TECHNIQUE: Grayscale, color, and spectral Doppler images of the bilateral upper extremity veins are submitted. FINDINGS: Right: The cephalic and brachial veins are patent. These veins show normal flow with physiological changes of phasicity and augmentation. There is thrombosis in the subclavian, axillary, and basilic veins. Left: The internal jugular, subclavian, axillary, basilic, brachial veins are patent. These veins show normal flow with physiological changes of phasicity and augmentation. IMPRESSION: Deep vein thrombosis in the right subclavian and axillary veins. Right basilic vein thrombosis. The professor of music informed the patient's nurse at the time of the exam. /[place] DICTATED BY: GOVIND HAYES MD DATE: 01/25/25722 ELECTRONICALLY SIGNED BY: GOVIND HAYES MD DATE: 01/25/[address] [id number] IMAGING REPORT Signed PATIENT: JUSTIN KLINE MR#: [id number] : 1955 SEX: F AGE: 70 LOCATION: 2CH ORDER 1539 STATUS: ADM IN REPORT#: [id number] SERVICE 153 REASON: picc placement ORDERING PHYSICIAN: RERE BLAIR PROCEDURE: CXR1VW - CHEST 1VW CHEST 1VW REASON: picc placement COMPARISON: Prior chest radiograph from 01/25/2025 at 1534 is available. FINDINGS: Single view of the chest was obtained. Lungs are clear. Heart size is normal. There is uncoiling atherosclerotic change of thoracic ureter. There is no pulmonary vascular congestion. Mediastinum and bony thorax appear unremarkable. There is a right-sided PIC catheter tip in superior vena cava at the cavoatrial junction. Endotracheal tube is in satisfactory position. IMPRESSION: 1. Support lines are in satisfactory position.. 2. No evidence of airspace consolidation or pulmonary venous congestion. DICTATED BY: RENA MADDOX MD DATE: 01/25/25 1558 ELECTRONICALLY SIGNED BY: RENA MADDOX MD DATE: 01/25/25 1604 ASSESSMENT: Hematemesis POA Hemorrhagic shock Acute hypoxic respiratory failure status post intubation for airway protection Peg tube placement Peptic ulcer disease DVT of bilateral upper limbs Starvation ketoacidosis Unstageable wound on sacrum Fecal impaction Obesity BMI 36.6 fecal impaction Knee injury versus underlying CKD Diabetes mellitus type 2 with associated hyperglycemia Severe hypoalbuminemia Hypertension Debility Small pericardial Effusion Left-sided pleural effusion PLAN: Hematemesis, peptic ulcer disease, POA - patient to be admitted to ICU -in reference to hematemesis. We will check H&H q.4 hours. Patient to have type and screen. If hemoglobin is less than seven. Patient will be receiving blood transfusion. - The patient will continue on Protonix drip and octreotide drip. - EGD done by Gastroenterology and have reported no active bleeding and clots in esophagus. - Today her hemoglobin is 5.9, we gave 1 PRBC. Repeat Hb is 7.4. -GI wanted to do another EGD and colonoscopy tomorrow. -Bleeding scan showed no evidence of gastrointestinal hemorrhage. Acute hypoxic respiratory failure status post intubation for airway protection - critical care is on board and we will follow critical care recommendations regarding ventilator and sedation protocol - currently on ACVC, TV 400, RR 18, Fio2 50%, PEEP 5. Hemorrhagic shock - patient currently on phenylephrine drip - weaned off Levophed - continuing midazolam, fentanyl currently. - we will follow critical Care recommendations in managing hemorrhagic shock DVT of bilateral upper limbs -US doppler of both upper limbs, results showed evidence of DVT. -Consulted gastroenterology for anticoagulation recommendations. They recommended to give high dose Protonix drip for 48 hours and carafate 1gm PO QID and after 48 hours start heparin drip. -Patient is not a candidate for SVC filter. Starvation ketoacidosis Her urinalysis showed ketones in the urine. Unstageable wound on sacrum - we will request wound care -Wound care recommended to cleanse with normal saline, pat dry, apply medihoney, cover with allevyn, change daily and prnKeep wounds clean and dry , Offloading/reposition q 2 hours Diabetes mellitus type 2 with associated hyperglycemia, Severe hypoalbuminemia, Hypertension, Debility, Small pericardial Effusion, Left-sided pleural effusion - echo showed no pericardial effusion, LVEF of 50-55% - continue insulin sliding scale - continue thiamine supplementation - Continue patient on cefepime, metronidazole for broad coverage - monitor vitals Q8 - monitor a.m. labs - nephrology was consulted and they have recommended to discontinue vancomycin, obtain urine analysis and complete renal ultrasound. -Repeated urinalysis, urine electrolytes, urine protein today. Urinalysis showed turbid urine, protein >300, ketones 5, moderate occult blood, moderate leukocyte esterase, RBC 6 to 10, WBC is TNTC, protein 410.9, sodium is 43, potassium is 36, chloride is 40. - We also albumin. GI prophylaxis: Pantoprazole ATTESTATION BY PHYSICIAN I have seen and examined the patient. I reviewed the documentation, medical decision making, and treatment plan as noted by the resident provider above. I agree with the findings and plan of care. Mason Hauser MD, AKSHAY MD Jan 25, 2025 17:37
--- NOTE | 2025-01-25 18:37 | PN ---
[facility] PROGRESS NOTE Date Patient Seen: Today, December Supervising Physician: Dr Ailyn Monsalve Room 217 [facility] Assessment: Septic shock on pressors Acute metabolic encephalopathy Acute hypoxemic respiratory failure (intubated) Acute complicated cystitis GI bleed with hematemesis Acute on chronic anemia Type II diabetes mellitus with hyperglycemia Dysphagia with G-tube Interval/Exam: Patient seen and examined, all labs and imaging have been reviewed, currently on vent, FiO2 30%, peep of 5 Sedated on fentanyl and Versed Intubated, sedated. On levo and vasopressin, Sandostatin/Protonix drips. Hgb 5.9, transfusion pending. Oliguric. Colonoscopy prep planned. Discussion with family at bedside Plan: Continue antibiotics Transfuse PRBCs Maintain pressors Prep for colonoscopy Monitor renal function Critical Care Time: 65 minutes septic shock, intubated, multiple drips, severe anemia. excluding all procedures. Physical Exam: General: Intubated, sedated. Neuro: Non-responsive, sluggish pupils. HEENT: ETT in place, moist mucosa. CV: Tachycardic, thready pulses. Respiratory: Coarse breath sounds, ventilated. Abdomen: Soft, non-distended, G-tube in place. : Kamara with scant output. Extremities: Cool, mottled. Skin: Pale, poor cap refill. Lines/Tubes: ETT, central line, Kamara, OG tube. REVIEW OF SYSTEMS: 12 point ROS reviewed , only + as per above PLAN GI & NUTRITION: Continue nutritional support Aspirations precautions Prokinetic agents and laxatives as needed KIDNEYS & ELECTROLYTES: Strict monitoring of intake and output NEURO: Minimize central acting medications as possible. Fall Precautions. Well lighted room through the day and minimize interruptions through the night to prevent acute delirium. PULMONARY: Supplemental 02 as needed Titrate Fio2 to keep Spo2 > or = 90% DuoNebs and CPT as needed CARDIOVASCULAR: Follow hemodynamics. Titrate vasopressor to keep MAP >65 or systolic blood pressure >95mmHg ENDOCRINE: Maintain blood glucose between 100-180 at all times. Insulin sliding scale for blood glucose management RENAL: Avoid nephrotoxic agents INFECTIOUS DISEASE: Trend temperature. Leonard-culture if febrile. HEMATOLOGY & COAGULATION: Monitor H&H. Keep Hgb > 7 Transfuse 1 unit of PRBC for Hgb < 7 Watch for any signs and symptoms of bleeding SKIN: Pressure ulcer prevention per facility protocol ATTESTATION BY PHYSICIAN The patient has been seen and evaluated, the case has been discussed with the PA, I agree with the clinical findings and plan of care. Vitals/Labs Vital Signs Date Time Temp Pulse Resp B/P (MAP) Pulse Ox O2 Delivery O2 Flow Rate FiO2 01/25/25 17:45 66 18 110/58 (75) 100 01/25/25 16:00 97.9 01/25/25 16:00 Ventilator+ 30 01/23/25 08:14 10.0 Laboratory Tests 01/25/25 04:16 01/25/25 05:20 01/25/25 14:07 Medications Current Medications Pantoprazole Sodium 80 mg ONCE ONCE IVP Last administered on 01/22/25at 09:02; Start 01/22/25 at 09:00; Stop 01/22/25 at 09:01; Status DC Pantoprazole Sodium 80 mg/ Sodium Chloride 100 ml @ 10 mls/hr Q10H IV Last administered on 01/24/25at 09:17; Start 01/22/25 at 09:00; Stop 01/24/25 at 09:23; Status DC Norepinephrine 250 ml @ 0 mls/hr PROTOCOL IV Last administered on 01/22/25at 14:24; Start 01/22/25 at 10:00; Stop 01/23/25 at 09:52; Status DC Potassium Chloride 100 ml @ 100 mls/hr ONCE ONCE IV Last administered on 01/22/25at 14:20; Start 01/22/25 at 10:30; Stop 01/22/25 at 11:29; Status DC Ketamine HCl 50 mg STK-MED ONCE .ROUTE; Start 01/22/25 at 11:28; Stop 01/22/25 at 11:29; Status DC Rocuronium [place] 50 mg STK-MED ONCE .ROUTE; Start 01/22/25 at 11:29; Stop 01/22/25 at 11:29; Status DC Sodium Chloride 1,000 ml @ 999 mls/hr Q1H1M ONCE IV Last administered on 01/22/25at 12:40; Start 01/22/25 at 11:30; Stop 01/22/25 at 12:30; Status DC Fentanyl Citrate 100 mcg ONCE ONCE IVP; Start 01/22/25 at 12:00; Stop 01/22/25 at 11:55; Status DC Pharmacy Profile Note 1 each ONCE MISC; Start 01/22/25 at 12:00; Stop 01/22/25 at 11:53; Status DC Rocuronium [place] 50 mg ONCE ONCE IV Last administered on 01/22/25at 12:01; Start 01/22/25 at 12:00; Stop 01/22/25 at 12:01; Status DC Ceftriaxone Sodium 1 gm Q24H IVPB Last administered on 01/22/25at 14:18; Start 01/22/25 at 12:00; Stop 01/22/25 at 16:25; Status DC Sodium Chloride 1,000 ml @ 150 mls/hr Q6H40M IV Last administered on 01/23/25at 02:45; Start 01/22/25 at 12:00; Stop 01/23/25 at 10:56; Status DC Fentanyl Citrate 100 ml @ 2.5 mls/hr PROTOCOL IV Last administered on 01/25/25at 17:04; Start 01/22/25 at 12:00; Stop 01/29/25 at 11:59 Propofol 1,000 mg PROTOCOL PRN IV; Start 01/22/25 at 12:00; Stop 01/22/25 at 11:55; Status DC Midazolam HCl 50 ml @ 0 mls/hr PROTOCOL IV Last administered on 01/24/25at 20:38; Start 01/22/25 at 12:00; Stop 01/29/25 at 11:59 Fentanyl Citrate 100 ml @ 2.5 mls/hr PROTOCOL IV; Start 01/22/25 at 12:00; Stop 01/22/25 at 11:55; Status DC Pharmacy Profile Note 1 each ONCE MISC; Start 01/22/25 at 12:00; Stop 01/22/25 at 11:53; Status DC Ketamine HCl 100 mg ONCE ONCE IV Last administered on 01/22/25at 12:02; Start 01/22/25 at 12:00; Stop 01/22/25 at 12:01; Status DC Octreotide Acetate 1250 mcg/ Sodium Chloride 250 ml @ 0 mls/hr PROTOCOL IV; Start 01/22/25 at 12:30; Stop 01/22/25 at 12:17; Status DC Octreotide Acetate 1250 mcg/ Sodium Chloride 250 ml @ 0 mls/hr PROTOCOL IV Last administered on 01/22/25at 12:41; Start 01/22/25 at 12:30; Stop 01/24/25 at 09:23; Status DC Sodium Chloride 2,000 ml @ 666.667 mls/hr ONCE ONCE IV Last administered on 01/22/25at 14:22; Start 01/22/25 at 14:00; Stop 01/22/25 at 16:59; Status DC Vancomycin HCl 1 each AD IV; Start 01/22/25 at 15:00; Stop 01/23/25 at 10:56; Status DC Cefepime HCl 2 gm Q24H IVPB Last administered on 01/25/25at 13:53; Start 01/23/25 at 12:00; Stop 02/02/25 at 11:59 Metronidazole/ Sodium Chloride 100 ml @ 100 mls/hr Q8H6 IVPB Last administered on 01/25/25at 13:53; Start 01/22/25 at 22:00; Stop 02/01/25 at 21:59 Levothyroxine Sodium 100 mcg SYN IV Last administered on 01/25/25at 07:14; Start 01/23/25 at 06:30; Stop 02/22/25 at 06:29 Levetiracetam 500 mg BID PO; Start 01/22/25 at 21:00; Stop 01/22/25 at 22:13; Status DC Potassium Chloride 100 ml @ 100 mls/hr AD PRN IV Last administered on 01/23/25at 08:18; Start 01/22/25 at 15:30; Stop 02/21/25 at 15:29 Potassium Chloride 20 meq AD PRN PO; Start 01/22/25 at 15:30; Stop 02/21/25 at 15:29 Potassium Chloride 20 meq AD PRN PO; Start 01/22/25 at 15:30; Stop 02/21/25 at 15:29 Potassium Chloride 100 ml @ 50 mls/hr AD PRN IV; Start 01/22/25 at 15:30; Stop 01/24/25 at 07:50; Status DC Magnesium Sulfate 50 ml @ 0 mls/hr PROTOCOL PRN IV Last administered on 01/23/25at 09:56; Start 01/22/25 at 15:30; Stop 02/21/25 at 15:29 Dextrose 50 ml AD PRN IV; Start 01/22/25 at 15:30; Stop 02/21/25 at 15:29 Glucagon 1 mg AD PRN IM; Start 01/22/25 at 15:30; Stop 02/21/25 at 15:29 Vancomycin HCl 500 ml @ 250 mls/hr ONCE ONCE IV Last administered on 01/22/25at 17:26; Start 01/22/25 at 17:00; Stop 01/22/25 at 18:59; Status DC Vancomycin HCl 750 mg Q24H IVPB; Start 01/23/25 at 17:00; Stop 01/23/25 at 10:56; Status DC Phenylephrine HCl 100 mg/Sodium Chloride 250 ml @ 0 mls/hr AD PRN IV Last administered on 01/23/25at 09:30; Start 01/22/25 at 17:00; Stop 02/21/25 at 16:59 Norepinephrine Bitartrate 250 ml @ As Directed STK-MED ONCE IV Last administered on 01/22/25at 17:51; Start 01/22/25 at 17:24; Stop 01/22/25 at 17:24; Status DC Insulin Human Regular INSULIN SLIDING SCAL... ACHS SQ Last administered on 01/25/25at 16:29; Start 01/22/25 at 21:00; Stop 02/21/25 at 20:59 Levetiracetam 500 mg/Sodium Chloride 100 ml @ 400 mls/hr Q12H9 IV Last administered on 01/25/25at 09:35; Start 01/22/25 at 22:00; Stop 02/21/25 at 21:59 Norepinephrine Bitartrate per protocol PROTOCOL IV Last administered on 01/23/25at 23:50; Start 01/23/25 at 10:00; Stop 02/22/25 at 09:59 Sucralfate 1 gm BID PO; Start 01/23/25 at 21:00; Stop 01/23/25 at 11:41; Status DC Sucralfate 1 gm TID PO Last administered on 01/24/25at 13:28; Start 01/23/25 at 14:00; Stop 01/24/25 at 15:02; Status DC Pharmacy Profile Note 1 each ONCE MISC; Start 01/23/25 at 13:00; Stop 01/23/25 at 13:09; Status DC Thiamine HCl 100 mg/Sodium Chloride 50 ml @ 100 mls/hr Q24H IV Last administered on 01/25/25at 13:53; Start 01/23/25 at 14:00; Stop 01/25/25 at 14:29; Status DC Chlorhexidine Gluconate 15 ml TID MM Last administered on 01/25/25at 09:25; Start 01/23/25 at 21:00; Stop 02/06/25 at 20:59 Artificial Tears 1 DROP OR AD Q8H OU Last administered on 01/25/25at 13:53; Start 01/23/25 at 19:30; Stop 02/22/25 at 19:29 Bumetanide 1 mg ONCE PRN IVP; Start 01/24/25 at 08:00; Stop 01/24/25 at 09:23; Status DC Pharmacy Profile Note 1 each [place] [facility] [place] Start 01/24/25 at 08:00; Stop 01/24/25 at 07:51; Status DC Linezolid 300 ml @ 150 mls/hr Q12H IV Last administered on 01/25/25at 09:26; Start 01/24/25 at 08:00; Stop 02/03/25 at 07:59 Bumetanide 2 mg ONCE PRN IVP Last administered on 01/24/25at 13:28; Start 01/24/25 at 14:00; Stop 01/24/25 at 14:00; Status DC Pantoprazole Sodium 40 mg BID IVP; Start 01/24/25 at 21:00; Stop 01/24/25 at 15:02; Status DC Albumin Human 50 ml @ 0 mls/hr Q8H6 IV Last administered on 01/24/25at 20:45; Start 01/24/25 at 14:00; Stop 01/24/25 at 22:00; Status DC Sucralfate 1 gm QID PO Last administered on 01/25/25at 16:11; Start 01/24/25 at 17:00; Stop 02/23/25 at 16:59 Pantoprazole Sodium 80 mg/ Sodium Chloride 100 ml @ 10 mls/hr Q10H IV Last administered on 01/25/25at 13:52; Start 01/24/25 at 15:00; Stop 02/23/25 at 14:59 Sodium Bicarbonate 650 mg BID PO Last administered on 01/25/25at 09:26; Start 01/24/25 at 21:00; Stop 02/23/25 at 20:59 Vasopressin 40 units/Sodium Chloride 40 ml @ 0 mls/hr PROTOCOL IV; Start 01/25/25 at 09:30; Stop 02/24/25 at 09:29 Polyethylene Glycol/ Electrolytes 4,000 ml ONCE ONCE PO Last administered on 01/25/25at 16:12; Start 01/25/25 at 14:00; Stop 01/25/25 at 14:01; Status DC Wound Care/ Dressing Products BID TP; Start 01/25/25 at 21:00; Stop 01/25/25 at 15:58; Status DC Leptospermum Honey 1 APPLICATION DAILY TP; Start 01/26/25 at 09:00; Stop 02/25/25 at 08:59 RERE BLAIR Jan 25, 2025 18:37
--- NOTE | 2025-01-25 19:39 | HMCIMG ---
EXAM: XR Chest, 2 Views. CLINICAL HISTORY: 70-year-old female, ventilated. COMPARISON: 01/24/2025. FINDINGS: LUNGS: Atelectasis lung bases. PLEURAL SPACES: Left pleural effusion, similar to prior XR chest from 01/24/2025 at 4:48 am. HEART: The heart size is normal. BONES: No acute osseous abnormality. IMPRESSION: 1. Left pleural effusion, similar to prior XR chest from 01/24/2025 at 4:48 am. 2. Atelectasis lung bases. /[place]
[2025-01-25 19:45] LABS: INFLUENZA TYPE A Negative For Type A (NEGATIVE); INFLUENZA TYPE B Negative For Type B (NEGATIVE)
--- NOTE | 2025-01-25 20:10 | HMCIMG ---
EXAM: XR Chest, 1 View. CLINICAL HISTORY: 70 year old female PICC placement right upper extremity. COMPARISON: None provided. FINDINGS: LUNGS: The lungs are clear. No consolidation. PLEURAL SPACES: No pleural effusion or pneumothorax. HEART: The heart size is enlarged. BONES: No acute osseous abnormality. LINES AND TUBES: PICC line with tip in the SVC. Endotracheal tube with tip in the arminda. VASCULATURE: Atherosclerotic aorta, similar to prior. IMPRESSION: 1. No acute cardiopulmonary pathology. 2. PICC line with tip in the SVC and endotracheal tube with tip in the arminda. /[place]
[2025-01-25 20:45] LABS: COVID19 (SARS ANTIGEN RAPID) PRESUMPTIVE NEGATIVE (NEGATIVE)
[2025-01-25] MEDS ORDERED: BALSAM PERU/CASTOR OIL 60 GM TUBE TP SCH (21:00)
[2025-01-26] VITALS (88 sets, daily range): BP systolic 69–156; BP diastolic 29–76; PULSE 57–113; RESP 11–23; TEMP 96.4–97.8; O2SAT 100
[2025-01-26 03:17] LABS: ABG BASE EXCESS -5.2 mmol/L (-2.0-3.0); ABG HCO3 17.9 mmol/L (21.0-28.0); ABG OXYGEN SATURATION 98.2 % (94.0-98.0); ABG PCO2 27 mmHg (32-45); ABG PH 7.442 (7.350-7.450); CARBON MONOXIDE 0.3 % (0.5-1.5); DEVICE COMMENT AC; PO2, ARTERIAL BG 120.3 mmHg (83.0-108.0); TEMPERATURE, CELSIUS BG 37.0 CELSIUS (35.5-37.0); VENT MODE, BG LR (ROOM AIR)
[2025-01-26 05:40] LABS: NUCLEATED RED BLOOD CELLS 0.5 % (0.0-0.19); PLATELET COUNT (AUTO) 287.0 K/uL (130-400); RED BLOOD CELL COUNT(AUTO) 2.93 MIL/uL (4.00-5.50); RED CELL DISTRIBUTION WIDTH 17.0 % (11.0-15.5); WHITE BLOOD COUNT (AUTO) 10.2 K/uL (4.8-10.8)
[2025-01-26 05:57] LABS: ASPARTATE AMINOTRANSFERASE 22.0 U/L (10-37); CREATININE 2.5 mg/dL (0.5-1.0); GLOMERULAR FILTR. RATE CALC 20.0 mL/min (>90); GLUCOSE,RANDOM 124.0 mg/dL (70-105); PHOSPHORUS 3.1 mg/dL (2.5-4.9); SODIUM SERUM 145.0 mmol/L (136-145); TOTAL PROTEIN, SERUM 4.6 g/dL (6.0-8.3); UREA NITROGEN, BLOOD 37.0 mg/dL (7-18)
[2025-01-26] MEDS: PoTASSium chloRIDE 20MEQ ER 20 MEQ ERTAB PO PRN (06:19)
--- NOTE | 2025-01-26 08:45 | NUR ---
ORDERED PO MEDICATIONS HELD. PT TO UNDERGO EGD AND COLONOSCOPY TODAY.
[2025-01-26] MEDS: HONEY 1 APPL/ML TUBE TP SCH (09:01)
--- NOTE | 2025-01-26 09:45 | PN ---
[facility] PROGRESS NOTE Date Patient Seen: Jan 26, 2025 Time of Visit: 09:42 Supervising Physician: Dr Ailyn Monsalve Primary Care Physician: NANDO HUYNH Outpatient Specialists: [ ] Inpatient Consults: DR RAMOS, DR HEAD, DR SIMENTAL PROBLEM LIST: Room 217 [facility] Assessment: Septic shock on pressors Acute metabolic encephalopathy Acute hypoxemic respiratory failure (intubated) Acute complicated cystitis GI bleed with hematemesis Acute on chronic anemia Type II diabetes mellitus with hyperglycemia Dysphagia with G-tube Deep vein thrombosis in the right subclavian and axillary veins and Right basilic vein thrombosis. INTERVAL HISTORY: Patient seen and examined, all labs and imaging have been reviewed Patient remains intubated, FiO2 is 30%, peep of 5, pending ABG Patient remains on levo at 0.07, plan is to keep her intubated as EGD and colonoscopy are scheduled for this morning Patient's potassium is 2.6 currently being covered, her urine output was 450 out overnight, nephrology is also following this patient has a history of hemodialysis in the past Nursing reports ESBL to urine, currently on Zyvox, Maxipime and Flagyl No family members at bedside, pending discussion later Plan: Vent management, ABG, chest x-ray We are monitoring hemoglobin and transfusing Bowel prep yesterday, going for EGD and colonoscopy today with GI. We will follow postprocedure Continue antibiotics, follow ID recs, following cultures Pending discussion with family members US - Deep vein thrombosis in the right subclavian and axillary veins and Right basilic vein thrombosis. holding antiplatelet therapy due to the bleed. Her hemoglobin is 8.7, no transfusion overnight but nursing reports continued red stools Total critical care time 57 minutes, patient remains critically ill, continues on pressor support as long of with vent management, and continues with GI bleed. REVIEW OF SYSTEMS: Unable to obtain due to patient's intubated PHYSICAL EXAM: GENERAL: Critically ill intubated and sedated. HEENT: Sclera non icteric, dry mucosa NECK: Supple, no JVD, trachea midline LUNGS: Clear breath sounds bilaterally. No wheezes HEART: Regular rate and rhythm. Normal S1 and S2, without murmurs ABD: Abdomen soft, nontender. Bowel sounds present EXT: No clubbing cyanosis or edema, history of right BKA NEURO: Intubated and sedated Vital Signs (last 8hr) Date Time Temp Pulse Resp B/P (MAP) Pulse Ox O2 Delivery O2 Flow Rate FiO2 01/26/25 06:39 72 30 01/26/25 05:08 100 Ventilator+ 30 01/26/25 04:00 97.0 01/26/25 03:42 72 30 01/26/25 02:00 72 102/46 (64) 100 30 01/26/25 01:45 71 109/43 (65) 100 30 LABS: Hematology Labs: Test 01/26/25 05:07 01/25/25 05:20 Range/Units White Blood Count 10.2 4.8-10.8 K/uL Red Blood Count 2.93 #L 4.00-5.50 MIL/uL Hemoglobin 8.7 L 12.0-16.0 g/dL Hematocrit 25.5 L 36-48 % Mean Corpuscular Volume 87.0 79-99 fL Mean Corpuscular Hemoglobin 29.7 27.0-33.0 pg Mean Corpuscular Hemoglobin Concent 34.1 32.0-36.0 g/dL Red Cell Distribution Width 17.0 H 11.0-15.5 % Platelet Count 287 130-400 K/uL Mean Platelet Volume 10.8 H 7.5-10.5 fL Nucleated Red Blood Cells 0.5 H 0.0-0.19 % Immature Granulocyte % (Auto) 1.3 H 0-1 % Neutrophils (%) (Auto) 70.9 40.0-77.0 % Lymphocytes (%) (Auto) 18.3 L 21.0-51.0 % Monocytes (%) (Auto) 7.4 3.0-13.0 % Eosinophils (%) (Auto) 1.3 0.0-8.0 % Basophils (%) (Auto) 0.8 0.0-5.0 % Neutrophils # (Auto) 7.9 H 1.8-7.7 K/uL Lymphocytes # (Auto) 2.1 1.0-4.8 K/uL Monocytes # (Auto) 0.8 0.1-1.0 K/uL Eosinophils # (Auto) 0.15 0.00-0.70 K/uL Basophils # (Auto) 0.09 0.00-0.20 K/uL Absolute Immature Granulocyte (auto 0.15 0-1 K/uL Chemistry Labs: Test 01/26/25 05:07 01/26/25 00:54 01/25/25 04:16 Range/Units Sodium Level 145 136-145 mmol/L Potassium Level 2.6 *L 3.5-5.1 mmol/L Chloride Level 112 H 101-111 mmol/L Carbon Dioxide Level 19 L 21-32 mmol/L Blood Urea Nitrogen 37 H 7-18 mg/dL Creatinine 2.5 H 0.5-1.0 mg/dL Glomerular Filtration Rate Calc 20 >90 mL/min Random Glucose 124 H 70-105 mg/dL Total Calcium 7.1 L 8.5-10.1 mg/dL Phosphorus Level 3.1 2.5-4.9 mg/dL Magnesium Level 1.80 1.80-2.40 mg/dL Total Bilirubin 0.3 0.2-1.0 mg/dL Aspartate Amino Transf (AST/SGOT) 22 10-37 U/L Alanine Aminotransferase (ALT/SGPT) 10 L 12-78 U/L Alkaline Phosphatase 107 50-136 U/L Total Protein 4.6 L 6.0-8.3 g/dL Albumin 1.1 L 3.5-5.0 g/dL Whole Blood Glucose 125 H 70-110 MG/DL Thyroid Stimulating Hormone (TSH) 5.06 #H 0.36-3.74 uIU/mL Coagulation Labs: Test 01/25/25 07:45 Range/Units Prothrombin Time 12.9 H 9.6-11.6 SEC Prothromb Time International Ratio 1.24 H 0.85-1.15 Activated Partial Thromboplast Time 36.2 H 26.3-35.5 SEC DIAGNOSTICS / RADIOLOGY RESULTS: [ ] PLAN NEURO: Minimize central acting medications as possible. Fall Precautions. Well lighted room through the day and minimize interruptions through the night to prevent acute delirium. PULMONARY: Supplemental 02 as needed Titrate Fio2 to keep Spo2 > or = 90% DuoNebs and CPT as needed IS hourly while awake for pulmonary hygiene Out of bed to chair as tolerated VAP Bundle Vent/BIPAP Settings: Assist-control volume control tidal volume of 400 respiratory rate of 18 FiO2 of 50% and PEEP of five. Maintain plateau pressure less than 30 CARDIOVASCULAR: Follow hemodynamics. Titrate vasopressor to keep MAP >65 or systolic blood pressure >95mmHg Drips: Fentanyl Versed Levophed Vasopressin Protonix Sandostatin LINES: Right femoral central line PICC line pending GI & NUTRITION: Continue nutritional support Aspirations precautions Prokinetic agents and laxatives as needed KIDNEYS & ELECTROLYTES: Strict monitoring of intake and output Daily weights Avoid nephrotoxic agents Monitor electrolytes and replace as needed Goal urine output of 30mL/hr or 0.5mL/kg/hr Urine output: [ ] Fluid Balance: [ ] ENDOCRINE: Maintain blood glucose between 100-180 at all times. Insulin sliding scale for blood glucose management INFECTIOUS DISEASE: Trend temperature. Leonard-culture if febrile. Micro: [ ] follow urine culture blood culture neg Antibiotics: [ ] cefepime flagyl zyvox HEMATOLOGY & COAGULATION: Monitor H&H. Keep Hgb > 7 Transfuse 1 unit of PRBC for Hgb < 7 Transfuse 1 pack of platelets of platelets < 20, 000 Watch for any signs and symptoms of bleeding SKIN: Pressure ulcer prevention per facility protocol Rehab: PT/OT Prophylaxis: GI: Protonix 40 mg b.i.d. DVT: SCDs avoid anticoagulants due to hematemesis Code Status: Full Resuscitation Disposition: [ ICU Other: Total patient care time exceeds 35 minutes excluding all procedures. Case was discussed and seen with my supervising physician. The above plan was formulated and agreed upon. RERE BLAIR Jan 26, 2025 09:45
[2025-01-26] MEDS: ZOSYN 3.375GM +NS 50ML IV SCH (12:19)
--- NOTE | 2025-01-26 12:41 | PN ---
NEPHROLOGY PROGRESS NOTE Date/Time Patient Seen: Jan 26, 2025 SUBJECTIVE: This is a 70-year-old female with past medical history of diabetes mellitus type 2, hypertension, anemia, history of CVA, history of right below-knee amputation, chronic kidney disease with prior history of dialysis She presented to the hospital secondary to hematemesis. Patient is currently intubated and sedated. Most information was obtained from chart review. bedside nurse, and family due to patient's condition The patient was noted to have black colored vomit at home which started yesterday. She has a history of peptic ulcer disease. She also has a PEG tube placed around two weeks ago. Peg tube was placed in [facility]. She was noted to have elevated BUN/creatinine. Continues to require vasopressors to maintain blood pressure. Continues on antibiotics We are consulted for renal failure Renal function remains elevated Electrolytes show hyperkalemia Iron panel was noted,S/p PRBC NM bleeding scan was negative GI workup is ongoing pending colonoscopy/EGD today Imaging studies were noted She continues on antibiotics She was seen in the ICU, intubated and sedated Family at the bedside Condition is critical and guarded REVIEW OF SYSTEMS: Difficult to obtain given status of the patient who remains intubated mechanically ventilated Vital Signs (last 8hr) Date Time Temp Pulse Resp B/P (MAP) Pulse Ox O2 Delivery O2 Flow Rate FiO2 01/26/25 13:45 63 14 117/54 (75) 100 01/26/25 13:44 66 14 98/50 (66) 100 01/26/25 13:30 67 14 86/44 (58) 100 01/26/25 13:15 73 14 97/55 (69) 100 01/26/25 13:00 66 14 105/57 (73) 100 01/26/25 12:45 68 15 114/57 (76) 100 01/26/25 12:30 68 14 113/62 (79) 100 01/26/25 12:15 72 14 102/55 (71) 100 01/26/25 12:09 67 30 01/26/25 12:00 100 Ventilator+ 30 01/26/25 12:00 97.9 01/26/25 12:00 67 14 100/57 (71) 100 01/26/25 11:45 69 14 103/59 (74) 99 01/26/25 11:30 70 14 107/57 (74) 100 01/26/25 11:15 70 14 131/71 (91) 100 01/26/25 11:00 70 14 141/68 (92) 100 01/26/25 10:45 71 14 145/75 (98) 100 01/26/25 10:30 74 16 108/64 (79) 100 01/26/25 10:19 85 30 01/26/25 10:15 73 18 130/66 (87) 100 01/26/25 10:00 92 15 135/60 (85) 100 01/26/25 09:45 73 14 129/70 (89) 100 01/26/25 09:30 73 16 126/67 (86) 100 01/26/25 09:15 75 14 103/49 (67) 100 01/26/25 09:00 73 18 101/55 (70) 100 01/26/25 08:45 72 14 79/46 (57) 100 01/26/25 08:30 73 14 87/48 (61) 100 01/26/25 08:15 79 17 133/70 (91) 100 01/26/25 08:00 86 14 87/51 (63) 100 01/26/25 08:00 97.0 01/26/25 08:00 100 Ventilator+ 30 01/26/25 07:45 72 14 126/65 (85) 100 01/26/25 07:30 73 16 104/62 (76) 100 01/26/25 07:15 79 14 75/45 (55) 100 01/26/25 07:00 97.0 74 14 98/49 (65) 100 30 PHYSICAL EXAM: General: acutely ill, sedated, intubated, and mechanically ventilated HEENT: head is atraumatic, pupils equal and reactive, ET tube in place Neck: supple, no masses, no lymphadenopathy, no thyromegaly, no JVD Lungs: decreased breath sounds bilaterally, symmetrical chest movement Cardio: regular rate, S1 and S2 normal, no rub or gallop Abdomen: soft, non tender, no distension, no organomegaly Extremities: trace edema bilateral lower extremities, no cyanosis or clubbing Skin: no rashes or suspicious lesions Neuro: sedated Current Medications Medications (Trade) Dose Ordered Sig/Arik Route Start Time Stop Time Status Last Admin Dose Admin Albumin Human 50 ml @ 0 mls/hr Q8H6 IV 01/24/25 14:00 01/24/25 22:00 Artificial Tears (Artificial Tears) 1 DROP OR AD Q8H OU 01/23/25 19:30 02/22/25 19:29 01/24/25 12:13 1 DROP Cefepime HCl (MAXipime 2 gm vial) 2 gm Q24H IVPB 01/23/25 12:00 02/02/25 11:59 01/24/25 12:13 2 GM Ceftriaxone Sodium (ROCEphine 1G INJ) 1 gm Q24H IVPB 01/22/25 12:00 01/22/25 16:25 DC 01/22/25 14:18 1 GM Chlorhexidine Gluconate (Peridex) 15 ml TID MM 01/23/25 21:00 02/06/25 20:59 01/24/25 09:15 15 ML Fentanyl Citrate 100 ml @ 2.5 mls/hr PROTOCOL IV 01/22/25 12:00 01/22/25 11:55 DC Fentanyl Citrate 100 ml @ 2.5 mls/hr PROTOCOL IV 01/22/25 12:00 01/29/25 11:59 01/24/25 06:59 2.5 MLS/HR Insulin Human Regular (humuLIN R 100 UNIT/ML 3ML) INSULIN SLIDING SCAL... ACHS SQ 01/22/25 21:00 02/21/25 20:59 01/23/25 12:20 2 UNIT Levetiracetam (kepPRA 500 MG TABLET) 500 mg BID PO 01/22/25 21:00 01/22/25 22:13 DC Levetiracetam 500 mg/Sodium Chloride 100 ml @ 400 mls/hr Q12H9 IV 01/22/25 22:00 02/21/25 21:59 01/24/25 09:17 400 MLS/HR Levothyroxine Sodium (SYNTHroid VIAL 100MCG) 100 mcg SYN IV 01/23/25 06:30 02/22/25 06:29 01/24/25 05:34 100 MCG Linezolid 300 ml @ 150 mls/hr Q12H IV 01/24/25 08:00 02/03/25 07:59 01/24/25 09:15 150 MLS/HR Metronidazole/ Sodium Chloride 100 ml @ 100 mls/hr Q8H6 IVPB 01/22/25 22:00 02/01/25 21:59 01/24/25 05:34 100 MLS/HR Midazolam HCl 50 ml @ 0 mls/hr PROTOCOL IV 01/22/25 12:00 01/29/25 11:59 01/22/25 20:51 1 MLS/HR Norepinephrine 250 ml @ 0 mls/hr PROTOCOL IV 01/22/25 10:00 01/23/25 09:52 DC 01/22/25 14:24 60 MLS/HR Norepinephrine Bitartrate (Norepineph 16 Mg/250ml NS Premix) per protocol PROTOCOL IV 01/23/25 10:00 02/22/25 09:59 01/23/25 23:50 16 MG Octreotide Acetate 1250 mcg/ Sodium Chloride 250 ml @ 0 mls/hr PROTOCOL IV 01/22/25 12:30 01/22/25 12:17 DC Octreotide Acetate 1250 mcg/ Sodium Chloride 250 ml @ 0 mls/hr PROTOCOL IV 01/22/25 12:30 01/24/25 09:23 DC 01/22/25 12:41 5 MLS/HR Pantoprazole Sodium (PROTonix 40MG INJ) 40 mg BID IVP 01/24/25 21:00 02/23/25 20:59 Pantoprazole Sodium 80 mg/ Sodium Chloride 100 ml @ 10 mls/hr Q10H IV 01/22/25 09:00 01/24/25 09:23 DC 01/24/25 09:17 10 MLS/HR Pharmacy Profile Note (Pharmacy Communication) 1 each ONCE MISC 01/22/25 12:00 01/22/25 11:53 DC Pharmacy Profile Note (Pharmacy Communication) 1 each ONCE MISC 01/22/25 12:00 01/22/25 11:53 DC Pharmacy Profile Note (Pharmacy Communication) 1 each ONCE MISC 01/23/25 13:00 01/23/25 13:09 DC Pharmacy Profile Note (Pharmacy Communication) 1 each ONCE MISC 01/24/25 08:00 01/24/25 07:51 DC Sodium Chloride 1,000 ml @ 150 mls/hr Q6H40M IV 01/22/25 12:00 01/23/25 10:56 DC 01/23/25 02:45 150 MLS/HR Sucralfate (Carafate) 1 gm BID PO 01/23/25 21:00 01/23/25 11:41 DC Sucralfate (Carafate) 1 gm TID PO 01/23/25 14:00 02/22/25 20:59 01/24/25 09:15 1 GM Thiamine HCl 100 mg/Sodium Chloride 50 ml @ 100 mls/hr Q24H IV 01/23/25 14:00 01/25/25 14:29 01/23/25 14:05 100 MLS/HR Vancomycin HCl (Vancomycin 750mg) 750 mg Q24H IVPB 01/23/25 17:00 01/23/25 10:56 DC Vancomycin HCl (Vancomycin Protocol) 1 each AD IV 01/22/25 15:00 01/23/25 10:56 DC LABORATORY: [ ] Hematology Labs: Test 01/26/25 09:20 01/26/25 05:07 01/25/25 05:20 Range/Units Hemoglobin 8.6 L 12.0-16.0 g/dL Hematocrit 25.7 L 36-48 % White Blood Count 10.2 4.8-10.8 K/uL Red Blood Count 2.93 #L 4.00-5.50 MIL/uL Mean Corpuscular Volume 87.0 79-99 fL Mean Corpuscular Hemoglobin 29.7 27.0-33.0 pg Mean Corpuscular Hemoglobin Concent 34.1 32.0-36.0 g/dL Red Cell Distribution Width 17.0 H 11.0-15.5 % Platelet Count 287 130-400 K/uL Mean Platelet Volume 10.8 H 7.5-10.5 fL Nucleated Red Blood Cells 0.5 H 0.0-0.19 % Immature Granulocyte % (Auto) 1.3 H 0-1 % Neutrophils (%) (Auto) 70.9 40.0-77.0 % Lymphocytes (%) (Auto) 18.3 L 21.0-51.0 % Monocytes (%) (Auto) 7.4 3.0-13.0 % Eosinophils (%) (Auto) 1.3 0.0-8.0 % Basophils (%) (Auto) 0.8 0.0-5.0 % Neutrophils # (Auto) 7.9 H 1.8-7.7 K/uL Lymphocytes # (Auto) 2.1 1.0-4.8 K/uL Monocytes # (Auto) 0.8 0.1-1.0 K/uL Eosinophils # (Auto) 0.15 0.00-0.70 K/uL Basophils # (Auto) 0.09 0.00-0.20 K/uL Absolute Immature Granulocyte (auto 0.15 0-1 K/uL Chemistry Labs: Test 01/26/25 10:49 01/26/25 10:33 01/26/25 05:07 01/25/25 04:16 Range/Units Potassium Level 2.8 *L 3.5-5.1 mmol/L Whole Blood Glucose 119 H 70-110 MG/DL Sodium Level 145 136-145 mmol/L Chloride Level 112 H 101-111 mmol/L Carbon Dioxide Level 19 L 21-32 mmol/L Blood Urea Nitrogen 37 H 7-18 mg/dL Creatinine 2.5 H 0.5-1.0 mg/dL Glomerular Filtration Rate Calc 20 >90 mL/min Random Glucose 124 H 70-105 mg/dL Total Calcium 7.1 L 8.5-10.1 mg/dL Phosphorus Level 3.1 2.5-4.9 mg/dL Magnesium Level 1.80 1.80-2.40 mg/dL Total Bilirubin 0.3 0.2-1.0 mg/dL Aspartate Amino Transf (AST/SGOT) 22 10-37 U/L Alanine Aminotransferase (ALT/SGPT) 10 L 12-78 U/L Alkaline Phosphatase 107 50-136 U/L Total Protein 4.6 L 6.0-8.3 g/dL Albumin 1.1 L 3.5-5.0 g/dL Thyroid Stimulating Hormone (TSH) 5.06 #H 0.36-3.74 uIU/mL Coagulation Labs: Test 01/25/25 07:45 Range/Units Prothrombin Time 12.9 H 9.6-11.6 SEC Prothromb Time International Ratio 1.24 H 0.85-1.15 Activated Partial Thromboplast Time 36.2 H 26.3-35.5 SEC [facility] / RADIOLOGY: [place] [address] [place] [id number] IMAGING REPORT Signed PATIENT: JUSTIN KLINE MR#: [id number] : 1955 SEX: F AGE: 70 LOCATION: 2CH ORDER 1539 STATUS: ADM IN REPORT#: [id number] SERVICE 153 REASON: picc placement ORDERING PHYSICIAN: RERE BLAIR PROCEDURE: CXR1VW - CHEST 1VW CHEST 1VW REASON: picc placement COMPARISON: Prior chest radiograph from 01/25/2025 at 1534 is available. FINDINGS: Single view of the chest was obtained. Lungs are clear. Heart size is normal. There is uncoiling atherosclerotic change of thoracic ureter. There is no pulmonary vascular congestion. Mediastinum and bony thorax appear unremarkable. There is a right-sided PIC catheter tip in superior vena cava at the cavoatrial junction. Endotracheal tube is in satisfactory position. IMPRESSION: 1. Support lines are in satisfactory position.. 2. No evidence of airspace consolidation or pulmonary venous congestion. DICTATED BY: RENA MADDOX MD DATE: 01/25/25 155 ELECTRONICALLY SIGNED BY: RENA MADDOX MD DATE: 01/25/25 160 PATIENT: JUSTIN KLINE MR#: [id number] : 1955 SEX: F AGE: 70 LOCATION: 2CH ORDER 1529 STATUS: ADM IN REPORT#: [id number] SERVICE 152 REASON: PICC placement ORDERING PHYSICIAN: RERE BLAIR PROCEDURE: CXR1VW - CHEST 1VW EXAM: XR Chest, 1 View. CLINICAL HISTORY: 70 year old female PICC placement right upper extremity. COMPARISON: None provided. FINDINGS: LUNGS: The lungs are clear. No consolidation. PLEURAL SPACES: No pleural effusion or pneumothorax. HEART: The heart size is enlarged. BONES: No acute osseous abnormality. LINES AND TUBES: PICC line with tip in the SVC. Endotracheal tube with tip in the arminda. VASCULATURE: Atherosclerotic aorta, similar to prior. IMPRESSION: 1. No acute cardiopulmonary pathology. 2. PICC line with tip in the SVC and endotracheal tube with tip in the arminda. /[place] DICTATED BY: TOM SANCHEZ MD DATE: 01/25/252108 ELECTRONICALLY SIGNED BY: TOM SANCHEZ MD DATE: 01/25/252108 PATIENT: JUSTIN KLINE MR#: [id number] : 1955 SEX: F AGE: 70 LOCATION: 2CH ORDER 2300 STATUS: ADM IN REPORT#: [id number] SERVICE 0600 REASON: vented pt ORDERING PHYSICIAN: KARL RODRIGUEZ PROCEDURE: CXR1VW - CHEST 1VW EXAM: XR Chest, 2 Views. CLINICAL HISTORY: 70-year-old female, ventilated. COMPARISON: 01/24/2025. FINDINGS: LUNGS: Atelectasis lung bases. PLEURAL SPACES: Left pleural effusion, similar to prior XR chest from 01/24/2025 at 4:48 am. HEART: The heart size is normal. BONES: No acute osseous abnormality. IMPRESSION: 1. Left pleural effusion, similar to prior XR chest from 01/24/2025 at 4:48 am. 2. Atelectasis lung bases. /[facility] DICTATED BY: TOM SANCHEZ MD DATE: 01/25/252038 ELECTRONICALLY SIGNED BY: TOM SANCHEZ MD DATE: 01/25/252038 PATIENT: JUSTIN KLINE MR#: [id number] : 1955 SEX: F AGE: 70 LOCATION: 2CH ORDER 1510 STATUS: ADM IN REPORT#: [id number] SERVICE 1508 REASON: HGB drop, assess for possible GI bleed ORDERING PHYSICIAN: KIRSTEN KRUSE MD PROCEDURE: GIBLEED - NM GI BLOOD LOSS IMAG Examination NM radiolabeled red blood cell study History Gastrointestinal bleeding Technique After IV administration of Tc-99m labeled red autologous blood cells, anterior projection images of the abdomen and pelvis were obtained dynamically for one hour. Findings Following administration of radiolabeled red blood cells, there is normal activity seen in cardiovascular and genitourinary structures, the liver and spleen. There is no evidence for extravasation of radiolabeled red blood cells during the examination. IMPRESSION: No evidence of gastrointestinal hemorrhage during the course of examination acquisition. /[place] DICTATED BY: RADHA BECERRA Jr., MD DATE: 01/25/251457 ELECTRONICALLY SIGNED BY: RADHA BECERRA Jr., MD DATE: 01/25/251457 PATIENT: JUSTIN KLINE MR#: [id number] : 1955 SEX: F AGE: 70 LOCATION: [facility] ORDER 1143 STATUS: ADM IN REPORT#: [id number] SERVICE 1131 REASON: new onset swelling in her arms ORDERING PHYSICIAN: KIRSTEN KRUSE MD PROCEDURE: VENOUS ALCIDES - US VENOUS DOPPLER BILATERAL EXAMINATION: SPECTRAL DOPPLER ULTRASOUND EXAMINATION OF THE BILATERAL UPPER EXTREMITY VEINS. CLINICAL HISTORY: Swelling. COMPARISON: None. TECHNIQUE: Grayscale, color, and spectral Doppler images of the bilateral upper extremity veins are submitted. FINDINGS: Right: The cephalic and brachial veins are patent. These veins show normal flow with physiological changes of phasicity and augmentation. There is thrombosis in the subclavian, axillary, and basilic veins. Left: The internal jugular, subclavian, axillary, basilic, brachial veins are patent. These veins show normal flow with physiological changes of phasicity and augmentation. IMPRESSION: Deep vein thrombosis in the right subclavian and axillary veins. Right basilic vein thrombosis. The enrobing machine operator informed the patient's nurse at the time of the exam. /[place] DICTATED BY: GOVIND HAYES MD DATE: 01/25/25722 ELECTRONICALLY SIGNED BY: GOVIND HAYES MD DATE: 01/25/25722 PATIENT: JUSTIN KLINE MR#: [id number] : 1955 SEX: F AGE: 70 LOCATION: 2CH ORDER 2300 STATUS: ADM IN REPORT#: [id number] SERVICE 0600 REASON: vented pt ORDERING PHYSICIAN: KARL RODRIGUEZ PROCEDURE: CXR1VW - CHEST 1VW EXAM: CR Chest, 1 View. CLINICAL HISTORY: vented pt COMPARISON: None provided. FINDINGS: LUNGS: Endotracheal tube midline above arminda Slight worsening left lower lobe infiltrate PLEURAL SPACES: No evidence of pleural effusion or pneumothorax. MEDIASTINUM: Cardiac size and mediastinal contours within normal limits. BONES: No acute osseous abnormality. IMPRESSION: 1. Endotracheal tube midline above arminda 2. Slight worsening left lower lobe infiltrate /[place] DICTATED BY: ANA ALSTON MD DATE: 01/24/252109 ELECTRONICALLY SIGNED BY: ANA ASLTON MD DATE: 01/24/252109 PATIENT: JUSTIN KLINE MR#: [id number] : 1955 SEX: F AGE: 70 LOCATION: 2CH ORDER 1301 STATUS: ADM IN REPORT#: [id number] SERVICE 1258 REASON: Decreased renal function ORDERING PHYSICIAN: SAUMYA ANTONIO PROCEDURE: RENAL - US RENAL SONOGRAM EXAMINATION: ULTRASOUND OF THE RETROPERITONEUM. CLINICAL HISTORY: Decreased renal function. COMPARISON: CT abdomen and pelvis without contrast dated 01/22/2025. TECHNIQUE: Real-time grayscale ultrasound images of the kidneys. FINDINGS: The right kidney is smaller in caliber, and the left kidney is normal in caliber, the right kidney measures 7.4 x 3.9 x 3.1 cm and the left kidney measures 8.2 x 3.0 x 3.3 cm in its craniocaudal, AP, and transverse dimensions respectively. There is normal renal cortical thickness and increased cortical echogenicity. There is no renal calculus or hydronephrosis. The urinary bladder is empty. There is Kamara???s bulb. IMPRESSION: Relatively small right kidney. Increased echogenicity of both the kidneys may reflect renal parenchymal disease. Recommend clinical correlation and with laboratory parameters. Kamara???s bulb is in situ. /[facility] DICTATED BY: RADHA BECERRA Jr., MD DATE: 01/23/252300 ELECTRONICALLY SIGNED BY: RADHA BECERRA Jr., MD DATE: 01/23/252300 PATIENT: JUSTIN KLINE MR#: [id number] : 1955 SEX: F AGE: 70 LOCATION: 2CH ORDER STATUS: ADM IN REPORT#: [id number] SERVICE REASON: intubated,congestion ORDERING PHYSICIAN: KARL RODRIGUEZ PROCEDURE: CXR1VW - CHEST 1VW EXAM: CR Chest, 1 View. CLINICAL HISTORY: intubated,congestion COMPARISON: 01/22 16:55 EDT CR - CHEST 1VW FINDINGS: ET tube 3.7 cm above the arminda. LUNGS: The lungs show no infiltrate or other acute finding. PLEURAL SPACES: No pleural effusion or pneumothorax. MEDIASTINUM: Cardiac size and mediastinal contours within normal limits. BONES: No acute osseous abnormality. IMPRESSION: No acute cardiopulmonary pathology is evident. ET tube 3.7 cm above the arminda. /[facility] DICTATED BY: RADHA BECERRA Jr., MD DATE: 01/23/250 ELECTRONICALLY SIGNED BY: RADHA BECERRA Jr., MD DATE: 01/23/251009 PATIENT: JUSTIN KLINE MR#: [id number] : 1955 SEX: F AGE: 70 LOCATION: 2CH ORDER 23 STATUS: ADM IN REPORT#: [id number] SERVICE 22 REASON: NG tube location ORDERING PHYSICIAN: KENA HAWLEY MD PROCEDURE: ABD 1VW - ABD 1VW ADDENDUM REPORT ADDENDUM: Results were shared by telephone at 10:10 pm on 01-22-25 and acknowledged by KENA Rivas. /[place] EXAM: CR Abdomen, 1 View. CLINICAL HISTORY: NG tube location COMPARISON: None provided. FINDINGS: BOWEL: The bowel gas pattern is within normal limits. PERITONEUM/SOFT TISSUES: No free air evident. No pathologic appearing calcification. BONES: No acute osseous abnormality. MISCELLANEOUS: No nasogastric tube identified. Gastrostomy tube left upper IMPRESSION: 1. No nasogastric tube identified. 2. Gastrostomy tube left upper quadrant /[place] DICTATED BY: ANA ALSTON MD DATE: 01/22/252210 ELECTRONICALLY SIGNED BY: DATE: EXAM: CR Abdomen, 1 View. CLINICAL HISTORY: NG tube location COMPARISON: None provided. FINDINGS: BOWEL: The bowel gas pattern is within normal limits. PERITONEUM/SOFT TISSUES: No free air evident. No pathologic appearing calcification. BONES: No acute osseous abnormality. MISCELLANEOUS: No nasogastric tube identified. Gastrostomy tube left upper IMPRESSION: 1. No nasogastric tube identified. 2. Gastrostomy tube left upper quadrant /[place] DICTATED BY: ANA ALSTON MD DATE: 01/22/252200 ELECTRONICALLY SIGNED BY: ANA ALSTON MD DATE: 01/22/252200 PATIENT: JUSTIN KLINE MR#: [id number] : 1955 SEX: F AGE: 70 LOCATION: 2CH ORDER 50 STATUS: ADM IN REPORT#: [id number] SERVICE 49 REASON: post intubation CXR ORDERING PHYSICIAN: KARL RODRIGUEZ PROCEDURE: CXR1VW - CHEST 1VW ADDENDUM REPORT ADDENDUM: Results were shared by telephone at 6:33 pm on 01-22-25 and acknowledged by patient's nurse JESSICA. /[place] EXAM: CR Chest, 2 View. CLINICAL HISTORY: post intubation CXR COMPARISON: None provided. FINDINGS: LUNGS: Endotracheal tube appears midline above arminda PLEURAL SPACES: No pleural effusion or pneumothorax. MEDIASTINUM: The cardiomediastinal silhouette is within normal limits. BONES: No acute osseous abnormality. MISCELLANEOUS: Question nasogastric tube in the thoracic inlet. IMPRESSION: 1. Endotracheal tube appears midline above arminda 2. Question nasogastric tube in the thoracic inlet. /[place] DICTATED BY: ANA ALSTON MD DATE: 01/22/251835 ELECTRONICALLY SIGNED BY: DATE: EXAM: CR Chest, 2 View. CLINICAL HISTORY: post intubation CXR COMPARISON: None provided. FINDINGS: LUNGS: Endotracheal tube appears midline above arminda PLEURAL SPACES: No pleural effusion or pneumothorax. MEDIASTINUM: The cardiomediastinal silhouette is within normal limits. BONES: No acute osseous abnormality. MISCELLANEOUS: Question nasogastric tube in the thoracic inlet. IMPRESSION: 1. Endotracheal tube appears midline above arminda 2. Question nasogastric tube in the thoracic inlet. /[facility] DICTATED BY: ANA ALSTON MD DATE: 01/22/251821 ELECTRONICALLY SIGNED BY: ANA ALSTON MD DATE: 01/22/251821 PATIENT: JUSTIN KLINE MR#: [id number] : 1955 SEX: F AGE: 70 LOCATION: 2CH ORDER 151 STATUS: ADM IN REPORT#: [id number] SERVICE 1509 REASON: transaminitis rule out CBD dilation/obstruction cholangitis ORDERING PHYSICIAN: KARL RODRIGUEZ PROCEDURE: ABDRUQLTD - US ABDOMINAL RUQ\LTD EXAMINATION: ULTRASOUND OF THE ABDOMEN (LIMITED) WITH COLOR DOPPLER. CLINICAL HISTORY: Transaminitis. To rule out CBD obstruction. COMPARISON: CT abdomen and pelvis without contrast from the same day. TECHNIQUE: Real-time grayscale ultrasound images of the abdomen. In addition, color Doppler is medically necessary to perform in order to evaluate vascularity and blood flow. FINDINGS: Liver: Normal in caliber, the right hepatic lobe measures 15.4 cm in the craniocaudal dimension. There is increased echogenicity of the hepatic parenchyma. There is no focal hepatic abnormality or intrahepatic biliary ductal dilatation. There is normal spectral Doppler of the main portal vein. Gallbladder: Within normal limits with normal wall thickness (0.22 cm). No hyperemia or pericholecystic free fluid. There are few calculi, the largest measure 1.5 cm. Common bile duct is normal in caliber, measuring 0.28 cm. Pancreas: Obscured by overlying bowel gas. The right kidney is normal in caliber, the right kidney measures 8.2 x 3.3 x 2.9 cm in craniocaudal, AP, and transverse dimensions respectively. There is normal renal cortical thickness, and cortical echogenicity. There is no renal calculus or hydronephrosis. IMPRESSION: Hepatic steatosis. Cholelithiasis. No cholecystitis. /[place] DICTATED BY: GOVIND HAYES MD DATE: 01/23/25856 ELECTRONICALLY SIGNED BY: GOVIND HAYES MD DATE: 01/23/25856 PATIENT: JUSTIN KLINE MR#: [id number] : 1955 SEX: F AGE: 70 LOCATION: 2CH ORDER 26 STATUS: ADM IN REPORT#: [id number] SERVICE 25 REASON: PERICARDIAL EFFUSION. Please also assess EF ORDERING PHYSICIAN: KENA HAWLEY MD PROCEDURE: ECHO CMP - ECHO 2-D COMPLETE APPROVED REPORT EXAM: Two-dimensional and M-mode echocardiogram with Doppler and color Doppler. INDICATION ICD: Assess pericardial effusion and ejection fraction 2D Dimensions RVDd 3.0 cm LVEF(%) 49.3 (>50%) LVED Vol(simp.) 20.0 mL IVSd 1.9 (0.7-1.1cm) FS(%) 23 % LVES Vol(simp.) 9.0 mL LVDd 2.4 (3.8-5.6cm) LA (2D) 2.6 (1.6-4.0cm) LVEF(%, simp.) 55 % PWd 2.0 (0.7-1.1cm) Ao Root(2D) 2.7 (2.0-3.7cm) LA ESV INDEX (BP) 22.00 mL/m2 IVSs 2.0 cm LVOT diam 2.0 (1.8-2.4cm) LVDs 1.8 (2.5-4.0cm) IVC diam 1.2 cm PWs 1.7 cm Deformation Strain Apical 4 -7.1 % Apical 2 -6.9 % Apical 3 -10.1 % Global Strain -8.0 % M-Mode Dimensions EPSS 0.8 cm LA (MM) 2.3 (1.6-4.0cm) Ao Root(MM) 2.9 (2.0-3.7cm) Aortic Valve AoV Vmax 2.1 m/s Ao Peak GR 17.0 mmHg LVOT Vmax 2.1 m/s AoV VTI 0.2 m Ao Mean GR 8.4 mmHg LVOT VTI 0.22 m YASMEEN (VMAX) 3.02 cm2 YASMEEN (VTI) 3.6 cm2 Mitral Valve MV E Vmax 51.6 cm/s DECEL Time 82 ms MV A Vmax 69.0 cm/s P 1/2 T 19 ms E/A ratio 0.7 MVA (PHT) 11.9 cm2 TDI E/E' Medial 6.8 E/E' Lateral 9.3 Medial E' Peak V 7.57 cm/s Lateral E' Peak V 5.54 cm/s Pulmonary Valve PV Vmax 1.3 m/s PV VTI 0.14 m PV Mean GR 3.5 mmHg PV Peak GR 6.5 mmHg Tricuspid Valve TR Vmax 1.5 m/s RAP (EST) 3 mmHg RVSP 12.4 mmHg TR Peak GR 9.4 mmHg Left Ventricle Left ventricular cavity is small. GLS -8.0% Severe concentric left ventricular hypertrophy. LVEF is 50-55%. The left ventricular diastolic function is normal. Right Ventricle The right ventricle is normal size. The right ventricular systolic function is normal. Atria The left atrium size is normal. The right atrium is small in size. Aortic Valve The aortic valve is normal in structure. No aortic regurgitation is present. There is no aortic valvular stenosis. Mitral Valve The mitral valve is normal in structure. There is trace of mitral valve regurgitation noted. There is no mitral valve stenosis. Tricuspid Valve The tricuspid valve is normal in structure. There is trace of tricuspid valve regurgitation noted. Pulmonic Valve Pulmonic valve is not well visualized. There is no pulmonic valvular regurgitation. Great Vessels The aortic root is normal in size. The IVC is normal in size and collapses >50% with inspiration. Pericardium There is no pericardial effusion. Other Information Quality : Technically difficult study due to body habitus, pt intubated Rhythm : Tachycardia Conclusion LVEF is 50-55%. Severe concentric left ventricular hypertrophy. The left ventricular diastolic function is normal. There is no pericardial effusion. DICTATED BY: GIULIANA AWAN DO DATE: 01/22/25 1318 ELECTRONICALLY SIGNED BY: GIULIANA AWAN DO DATE: 01/23/25 0743 PATIENT: JUSTIN KLINE MR#: [id number] : 1955 SEX: F AGE: 70 LOCATION: [facility] ORDER 1152 STATUS: ADM IN REPORT#: [id number] SERVICE 1151 REASON: S/P INTUBATION. ET tube position ORDERING PHYSICIAN: KENA HAWLEY MD PROCEDURE: CXR1VW - CHEST 1VW EXAM: CR Chest, 2 View. CLINICAL HISTORY: S/P INTUBATION. ET tube position COMPARISON: Radiograph from January 22 at 8:53 AM FINDINGS: Endotracheal tube terminates 1.4 cm above the arminda. LUNGS: There is no mass, infiltrate, or acute pulmonary abnormality. PLEURAL SPACES: No pleural effusion or pneumothorax. MEDIASTINUM: Cardiac size and mediastinal contours within normal limits. Atherosclerosis of the thoracic aorta. BONES: No acute osseous abnormality. IMPRESSION: 1. Endotracheal tube positioned 1.4 cm above the arminad. 2. No acute cardiopulmonary abnormality. /[place] DICTATED BY: RADHA BECERRA Jr., MD DATE: 01/22/251309 ELECTRONICALLY SIGNED BY: RADHA BECERRA Jr., MD DATE: 01/22/251309 PATIENT: JUSTIN KLINE MR#: [id number] : 1955 SEX: F AGE: 70 LOCATION: [facility] ORDER 8 STATUS: [facility] REPORT#: [id number] SERVICE 7 REASON: gi bleed ORDERING PHYSICIAN: JULISA PETERSON MD PROCEDURE: ABD PEL WO - CT ABDOMEN/PELVIS W/O CONTRAST CT ABDOMEN/PELVIS W/O CONTRAST REASON: gi bleed COMPARISON: None. FINDINGS: Lung bases are clear. There is a small left-sided pleural effusion. There is coronary calcifications suggesting coronary artery disease. There is suggestion of small pericardial effusion. There is a moderate size hiatal hernia. . There are no focal liver lesions. There are normal-appearing kidneys.. Spleen and pancreas appear unremarkable. The gallbladder appears normal as well. There is a feeding gastrostomy tube in place. Bowel loops appear unremarkable. This includes normal appearance of the appendix . There is fecal stasis in the rectal vault. Abutting the right lobe of the bowel in the right lower quadrant and abutting the right psoas muscle there is a a cystic structure measuring 5.9 x 3.9 cm. There is no evidence of free fluid or intraperitoneal air. There are no focal fluid collections. The retroperitoneum appear normal as do pelvic soft tissue structures. Aorta and iliac vessels demonstrate diffuse atherosclerotic changes. The anterior abdominal wall is intact. Osseous structures appear unremarkable. The uterus is surgically absent. IMPRESSION: 1. No acute process seen in CT of abdomen and pelvis without intravenous contrast 2. In the right adnexal region there is a cystic structure measuring 5.9 x 3.9 cm 3. Fecal stasis impaction seen in the rectal vault CT was performed with one or more following dose reduction techniques: automated exposure control, adjustment of the mA and kv according to patient's size, or use of a iterative reconstruction technique. DICTATED BY: RENA MADDOX MD DATE: 01/22/25 1044 ELECTRONICALLY SIGNED BY: RENA MADDOX MD DATE: 01/22/25 1051 PATIENT: JUSTIN KLINE MR#: [id number] : 1955 SEX: F AGE: 70 LOCATION: [facility] ORDER 8 STATUS: [facility] REPORT#: [id number] SERVICE REASON: gi bleed ORDERING PHYSICIAN: JULISA PETERSON MD PROCEDURE: ABD PEL WO - CT ABDOMEN/PELVIS W/O CONTRAST CT ABDOMEN/PELVIS W/O CONTRAST REASON: gi bleed COMPARISON: None. FINDINGS: Lung bases are clear. There is a small left-sided pleural effusion. There is coronary calcifications suggesting coronary artery disease. There is suggestion of small pericardial effusion. There is a moderate size hiatal hernia. . There are no focal liver lesions. There are normal-appearing kidneys.. Spleen and pancreas appear unremarkable. The gallbladder appears normal as well. There is a feeding gastrostomy tube in place. Bowel loops appear unremarkable. This includes normal appearance of the appendix . There is fecal stasis in the rectal vault. Abutting the right lobe of the bowel in the right lower quadrant and abutting the right psoas muscle there is a a cystic structure measuring 5.9 x 3.9 cm. There is no evidence of free fluid or intraperitoneal air. There are no focal fluid collections. The retroperitoneum appear normal as do pelvic soft tissue structures. Aorta and iliac vessels demonstrate diffuse atherosclerotic changes. The anterior abdominal wall is intact. Osseous structures appear unremarkable. The uterus is surgically absent. IMPRESSION: 1. No acute process seen in CT of abdomen and pelvis without intravenous contrast 2. In the right adnexal region there is a cystic structure measuring 5.9 x 3.9 cm 3. Fecal stasis impaction seen in the rectal vault CT was performed with one or more following dose reduction techniques: automated exposure control, adjustment of the mA and kv according to patient's size, or use of a iterative reconstruction technique. DICTATED BY: RENA MADDOX MD DATE: 01/22/251043 ELECTRONICALLY SIGNED BY: RENA MADDOX MD DATE: 01/22/25 105 PATIENT: JUSTIN KLINE MR#: [id number] : 1955 SEX: F AGE: 70 LOCATION: [facility] ORDER 9 STATUS: [facility] REPORT#: [id number] SERVICE 7 REASON: cp ORDERING PHYSICIAN: JULISA PETERSON MD PROCEDURE: CXR1VW - CHEST 1VW EXAM: Chest radiograph 1 view HISTORY: Chest pain COMPARISON: None FINDINGS: No pulmonary consolidations. No pleural effusion or pneumothorax. Enlarged cardiac silhouette. Tortuous calcified aorta. No overt congestion. Degenerative changes. IMPRESSION: No acute cardiopulmonary disease. /[place] DICTATED BY: DESTINY CASTELLANOS MD DATE: 01/22/251058 ELECTRONICALLY SIGNED BY: DESTINY CASTELLANOS MD DATE: 01/22/251058 ASSESSMENT: Acute renal failure Anemia Septic shock requiring pressors, POA Acute metabolic encephalopathy POA Acute Hypoxic rep failure requiring intubation for airway protection POA Acute complicated cystitis POA Acute on chronic anemia 2/ GI Bleed (Hematemesis) POA Hyperglycemia in the presence of type 2 diabetes mellitus, POA right adnexal region there is a cystic structure measuring 5.9 x 3.9 cm Thrombocytosis Hypokalemia Electrolyte derangement (hypokalemia, hypocalcemia) severe Hypoalbuminemia Malnutrition Transaminitis Elevated TSH suspected myxedema Uncontrolled type 2 diabetes mellitus Essential hypertension Anemia Prior history of CVA Right [id number] amputation G-tube in situ Bed ridden Recent hospitalization [facility] for hematemesis PLAN: Labs, diagnostic, radiologic exams reviewed and interpreted by myself and supervising physician. We have reviewed external records in detail GI workup is ongoing Potassium replacement with low-dose protocol was ordered Require close monitoring of renal function and electrolytes Order CBC, CMP, and electrolytes in am Continue with antibiotics Continue mechanical ventilation and sedation Continue with IV pressors Monitor blood pressure adjust medication doses as needed Avoid hypotensive episodes May use Dilaudid 0.5 mg IV every 6 hours as needed for severe pain Monitor blood sugars Strict intake, output, and daily weight should be monitored Please renally adjust medications Avoid nephrotoxic and nonsteroidal drugs Avoid contrast if possible Will continue to monitor renal function, anemia, electrolytes Treatment plan discussed with patient Questions were answered We have discussed with the other team physicians in detail about the care plan We will continue to monitor the patient closely Total critical care time spent with patient, nursing staff, critical care team over 35 minutes ATTESTATION BY PHYSICIAN I have seen and examined the patient. I reviewed the documentation, medical decision making, and treatment plan as noted by the mid-level provider above. I agree with the findings and plan of care. CHRISTELLE SIMENTAL MD, [facility] Jan 26, 2025 12:41
--- NOTE | 2025-01-26 17:25 | PN ---
[facility] PROGRESS NOTE Date of Service: Jan 26, 2025 Time of Service: 17:12 SUBJECTIVE: 70-year-old female with past medical history of diabetes mellitus type 2, hypertension, anemia, history of CVA, history of right below-knee amputation who presented to the hospital secondary to hematemesis. Patient is currently intubated and sedated. The patient's history is mostly obtained from patient's who is present at bedside and from ED provider. The patient was noted to have black colored vomit at home which started yesterday. She has a history of peptic ulcer disease. She also has a PEG tube placed around two weeks ago. Peg tube was placed in [facility]. Per patient is able to swallow better now. denied any fever, chills, shortness for breath, chest pain. History is fairly limited at this time as patient is not able to participate in conversation. Labs were Notable for white count of 9.1, hemoglobin was 9.1, MCV was 86.7, platelet count was 456 K, sodium was 138, potassium was 3.1, bicarb was , creatinine was 1.7, glucose was 234, alk-phos was 153, total protein was 5.0, albumin was 0.9, lipase was negative normal Underwent a CT abdomen pelvis which showed no acute process in the CT abdomen without IV contrast. Patient was noted to have cystic structure in the right adrenal region measuring 5.9 x 3.9 cm. The patient also had fecal impaction noted. In the ED patient had episode of hematemesis and she was intubated for airway protection by ED provider. 01/23/2025: The patient is examined at the bedside. She was sedated and not responsive during my visit. GI performed EGD in the morning and they have observed no active bleeding. Nurse notified an unstageable wound on sacrum for which Wound consult is placed today. We will be manage as per critical Care recommendations. 01/24/2025: The patient is examined at the bedside. She was sedated and not responsive during my visit. Her arms are swollen. Her vitals are normal except for blood pressure is 97/51. Her labs are in the normal range except for Hb is 6.6, chloride is 113, BUN is 39, creatinine is 2.4, iron is 28, TIBC is 44, % saturation is 63.6, TSH is 7.62. Her urine culture grew 10,000-50,000 CFU. Identification and susceptibility are in process. Blood culture show no growth after 48 hours. Renal ultrasound show renal parenchymal disease. As her hemoglobin is low she received a blood transfusion. After the transfusion her hemoglobin is 7.1. We ordered a bilateral upper limb doppler which showed evidence of DVT. Gastroenterology was consulted to give recommendations on starting anticoagulation. GI recommended high dose Protonix drip for 48 hours and carafate 1gm PO QID, after 48 hours start heparin drip. IR was called to ask about the option of placing an SVC filter, and they recommended mechanical thrombectomy. The patient is not a good candidate for an SVC filter. A urinalysis, urine electrolytes, urine protein were ordered today. Urinalysis showed turbid urine, protein >300, ketones 5, moderate occult blood, moderate leukocyte esterase, RBC 6 to 10, WBC is TNTC, protein 410.9, sodium is 43, potassium is 36, chloride is 40. 01/25/2025: The patient is examined at the bedside. She was sedated and not responsive during my visit. Her arms are swollen. Her vitals are normal. Her labs are in the normal range except for Hb is 5.9, WBC is 11.2, Cl is 112, potassium is 3.2, CO2 is 19, BUN is 40 creatinine is 2.6. As her hemoglobin is low we gave a t ransfusion and the repeat Hb is 7.4. Gastroenterology will do EGD and colonoscopy tomorrow morning. Hematology is consulted and they recommended same management. Wound care recommended to cleanse with normal saline, pat dry, apply medihoney, cover with allevyn, change daily and prnKeep wounds clean and dry , Offloading/reposition q 2 hours. Bleeding scan showed no evidence of gastrointestinal hemorrhage. 01/26/2025: The patient is examined at the bedside. She was sedated and not responsive during my visit. Her arms are swollen. Her vitals are normal except for blood pressure which is 96/45. Her labs are in the normal range except for Hb is 8.7, K is 2.8, Cl is 112, CO2 is 19, BUN is 37, creatinine is 2.5, Albumin is 1.1. She is scheduled for an EGD and colonoscopy today. We replaced the potassium and the repeat potassium levels are 2.8 and 3.1. REVIEW OF SYSTEMS Unable to obtain as patient is sedated PHYSICAL EXAM GENERAL APPEARANCE: He is currently intubated and sedated NEUROLOGICAL: Cranial nerves II-XII grossly intact. Motor is 5/5 in bilateral upper and lower extremities proximal to distal. No sensory deficits. HEENT: Face is symmetric. Pupils are equal and reactive. Extraocular movements are intact. NECK: Supple. No JVD. No thyromegaly. No submental, submandibular, pre- /postauricular, occipital or supraclavicular lymphadenopathy. CHEST: Normal chest expansion. No Telemetry. LUNGS: Absence of any rales, rhonchi or any wheezing. CARDIOVASCULAR: Regular. S1 and S2 normal. No appreciable rubs, murmurs or gallops. ABDOMEN: Soft, nontender, and nondistended. There is no rebound, voluntary guarding, or rigidity. Patient has a PEG tube in place : Deferred. No Kamara. EXTREMITIES: Below-knee amputation of the right lower extremity SKIN: No skin breakdown. Vital Signs (last 8hr) Date Time Temp Pulse Resp B/P (MAP) Pulse Ox O2 Delivery O2 Flow Rate FiO2 01/26/25 16:30 73 15 96/45 (62) 100 01/26/25 16:15 67 15 87/43 (58) 100 01/26/25 16:00 100 Ventilator+ 30 01/26/25 16:00 72 14 114/47 (69) 99 01/26/25 16:00 97.9 01/26/25 15:45 72 14 95/51 (66) 96 01/26/25 15:30 71 14 134/67 (89) 100 01/26/25 15:15 70 18 115/67 (83) 100 01/26/25 15:00 66 15 90/49 (63) 100 01/26/25 14:46 96 30 01/26/25 14:45 72 14 111/56 (74) 100 01/26/25 14:30 77 14 106/57 (73) 100 01/26/25 14:15 63 14 84/48 (60) 100 01/26/25 14:00 65 14 117/54 (75) 100 01/26/25 13:45 63 14 117/54 (75) 100 01/26/25 13:44 66 14 98/50 (66) 100 10/1/25 13:30 67 14 86/44 (58) 100 01/26/25 13:15 73 14 97/55 (69) 100 01/26/25 13:00 66 14 105/57 (73) 100 01/26/25 12:45 68 15 114/57 (76) 100 01/26/25 12:30 68 14 113/62 (79) 100 01/26/25 12:15 72 14 102/55 (71) 100 01/26/25 12:09 67 30 01/26/25 12:00 100 Ventilator+ 30 01/26/25 12:00 97.9 01/26/25 12:00 67 14 100/57 (71) 100 01/26/25 11:45 69 14 103/59 (74) 99 01/26/25 11:30 70 14 107/57 (74) 100 01/26/25 11:15 70 14 131/71 (91) 100 01/26/25 11:00 70 14 141/68 (92) 100 01/26/25 10:45 71 14 145/75 (98) 100 01/26/25 10:30 74 16 108/64 (79) 100 01/26/25 10:19 85 30 01/26/25 10:15 73 18 130/66 (87) 100 01/26/25 10:00 92 15 135/60 (85) 100 01/26/25 09:45 73 14 129/70 (89) 100 01/26/25 09:30 73 16 126/67 (86) 100 01/26/25 09:15 75 14 103/49 (67) 100 LABS: Laboratory: Test 01/26/25 14:45 01/26/25 13:17 01/26/25 10:33 01/26/25 05:07 Range/Units Hemoglobin 8.2 L 12.0-16.0 g/dL Hematocrit 24.2 L 36-48 % Potassium Level 3.1 L 3.5-5.1 mmol/L Whole Blood Glucose 119 H 70-110 MG/DL White Blood Count 10.2 4.8-10.8 K/uL Red Blood Count 2.93 #L 4.00-5.50 MIL/uL Mean Corpuscular Volume 87.0 79-99 fL Mean Corpuscular Hemoglobin 29.7 27.0-33.0 pg Mean Corpuscular Hemoglobin Concent 34.1 32.0-36.0 g/dL Red Cell Distribution Width 17.0 H 11.0-15.5 % Platelet Count 287 130-400 K/uL Mean Platelet Volume 10.8 H 7.5-10.5 fL Nucleated Red Blood Cells 0.5 H 0.0-0.19 % Sodium Level 145 136-145 mmol/L Chloride Level 112 H 101-111 mmol/L Carbon Dioxide Level 19 L 21-32 mmol/L Blood Urea Nitrogen 37 H 7-18 mg/dL Creatinine 2.5 H 0.5-1.0 mg/dL Glomerular Filtration Rate Calc 20 >90 mL/min Random Glucose 124 H 70-105 mg/dL Total Calcium 7.1 L 8.5-10.1 mg/dL Phosphorus Level 3.1 2.5-4.9 mg/dL Magnesium Level 1.80 1.80-2.40 mg/dL Total Bilirubin 0.3 0.2-1.0 mg/dL Aspartate Amino Transf (AST/SGOT) 22 10-37 U/L Alanine Aminotransferase (ALT/SGPT) 10 L 12-78 U/L Alkaline Phosphatase 107 50-136 U/L Total Protein 4.6 L 6.0-8.3 g/dL Albumin 1.1 L 3.5-5.0 g/dL Test 01/26/25 03:16 01/25/25 19:06 01/25/25 16:19 01/25/25 07:45 Range/Units Blood Gas Specimen Type Arterial Arterial Blood pH 7.442 7.350-7.450 Arterial Blood Partial Pressure CO2 27 L 32-45 mmHg Arterial Blood Partial Pressure O2 120.3 H 83.0-108.0 mmHg Arterial Blood HCO3 17.9 L 21.0-28.0 mmol/L Arterial Blood Oxygen Saturation 98.2 H 94.0-98.0 % Arterial Blood Base Excess -5.2 L -2.0-3.0 mmol/L Hemoglobin (Blood Gas) 9.9 L 12.0-16.0 g/dL Sodium (Blood Gas) 139 136-145 MMOL/L Bedside Potassium (Blood Gas) 2.8 *L 3.4-4.5 MMOL/L Bedside Chloride (Blood Gas) 113 H 98-107 MMOL/L Bedside Glucose (Blood Gas) 129 H 65-95 MG/DL Bedside Ionized Calcium (Blood Gas) 1.15 1.15-1.33 MMOL/L Bedside Lactic Acid (Blood Gas) 1.79 H 0.36-0.75 MMOL/L Blood Gas Temperature 37.0 35.5-37.0 CELSIUS Blood Gas Respiration Rate 14.0 min. Blood Gas Vent Mode LR ROOM AIR FiO2 30.0 % Blood Gas Tidal Volume 400 ml Blood Gas PEEP 5 cm H2O Blood Gas Specimen Comment AC Influenza Type A Antigen Negative For Type A NEGATIVE Influenza Type B Antigen Negative For Type B NEGATIVE SARS-CoV-2 Antigen (Rapid) PRESUMPTIVE NEGATIVE NEGATIVE Vancomycin Level Trough 15.5 10.0-20.0 UG/ML Prothrombin Time 12.9 H 9.6-11.6 SEC Prothromb Time International Ratio 1.24 H 0.85-1.15 Activated Partial Thromboplast Time 36.2 H 26.3-35.5 SEC Test 01/25/25 05:20 01/25/25 04:16 Range/Units Immature Granulocyte % (Auto) 1.3 H 0-1 % Neutrophils (%) (Auto) 70.9 40.0-77.0 % Lymphocytes (%) (Auto) 18.3 L 21.0-51.0 % Monocytes (%) (Auto) 7.4 3.0-13.0 % Eosinophils (%) (Auto) 1.3 0.0-8.0 % Basophils (%) (Auto) 0.8 0.0-5.0 % Neutrophils # (Auto) 7.9 H 1.8-7.7 K/uL Lymphocytes # (Auto) 2.1 1.0-4.8 K/uL Monocytes # (Auto) 0.8 0.1-1.0 K/uL Eosinophils # (Auto) 0.15 0.00-0.70 K/uL Basophils # (Auto) 0.09 0.00-0.20 K/uL Absolute Immature Granulocyte (auto 0.15 0-1 K/uL Thyroid Stimulating Hormone (TSH) 5.06 #H 0.36-3.74 uIU/mL Current Medications Medications (Trade) Dose Ordered Sig/Arik Route PRN Reason Start Time Stop Time Status Last Admin Dose Admin Albumin Human 50 ml @ 0 mls/hr Q8H6 IV 01/24/25 14:00 01/24/25 22:00 DC 01/24/25 20:45 1,200 MLS/HR Artificial Tears (Artificial Tears) 1 DROP OR AD Q8H OU 01/23/25 19:30 02/22/25 19:29 01/26/25 10:34 1 DROP Bumetanide (Bumex 1mg Vial) 1 mg ONCE PRN IVP AFTER TRANSFUSION 01/24/25 08:00 01/24/25 09:23 DC Bumetanide (Bumex 1mg Vial) 2 mg ONCE PRN IVP AFTER TRANSFUSION 01/24/25 14:00 01/24/25 14:00 DC 01/24/25 13:28 2 MG Cefepime HCl (MAXipime 2 gm vial) 2 gm Q24H IVPB 01/23/25 12:00 01/26/25 12:05 DC 01/26/25 11:38 2 GM Ceftriaxone Sodium (ROCEphine 1G INJ) 1 gm Q24H IVPB 01/22/25 12:00 01/22/25 16:25 DC 01/22/25 14:18 1 GM Chlorhexidine Gluconate (Peridex) 15 ml TID MM 01/23/25 21:00 02/06/25 20:59 01/26/25 14:23 15 ML Dextrose (D50w) 50 ml AD PRN IV HYPOGLYCEMIA PROTOCOL 01/22/25 15:30 02/21/25 15:29 Fentanyl Citrate 100 ml @ 2.5 mls/hr PROTOCOL IV 01/22/25 12:00 01/22/25 11:55 DC Fentanyl Citrate 100 ml @ 2.5 mls/hr PROTOCOL IV 01/22/25 12:00 01/29/25 11:59 01/26/25 15:59 2.5 MLS/HR Glucagon (Glucagon 1mg Kit) 1 mg AD PRN IM HYPOGLYCEMIA PROTOCOL 01/22/25 15:30 02/21/25 15:29 Insulin Human Regular (humuLIN R 100 UNIT/ML 3ML) INSULIN SLIDING SCAL... ACHS SQ 01/22/25 21:00 01/25/25 20:51 DC 01/25/25 16:29 3 UNIT Insulin Human Regular (humuLIN R 100 UNIT/ML 3ML) INSULIN SLIDING SCAL... Q6H6 SQ 01/26/25 10:00 02/25/25 09:59 Leptospermum Honey (Arias) 1 APPLICATION DAILY TP 01/26/25 09:00 02/25/25 08:59 01/26/25 09:01 1 APPL Levetiracetam (kepPRA 500 MG TABLET) 500 mg BID PO 01/22/25 21:00 01/22/25 22:13 DC Levetiracetam 500 mg/Sodium Chloride 100 ml @ 400 mls/hr Q12H9 IV 01/22/25 22:00 02/21/25 21:59 01/26/25 08:57 400 MLS/HR Levothyroxine Sodium (SYNTHroid VIAL 100MCG) 100 mcg SYN IV 01/23/25 06:30 02/22/25 06:29 01/26/25 06:16 100 MCG Linezolid 300 ml @ 150 mls/hr Q12H IV 01/24/25 08:00 02/03/25 07:59 01/26/25 08:50 150 MLS/HR Magnesium Sulfate 50 ml @ 0 mls/hr PROTOCOL PRN IV Hypomagnesemia 01/22/25 15:30 02/21/25 15:29 01/23/25 09:56 0 MLS/HR Metronidazole/ Sodium Chloride 100 ml @ 100 mls/hr Q8H6 IVPB 01/22/25 22:00 01/26/25 12:05 DC 01/26/25 06:13 100 MLS/HR Midazolam HCl 50 ml @ 0 mls/hr PROTOCOL IV 01/22/25 12:00 01/29/25 11:59 01/26/25 16:00 10 MLS/HR Norepinephrine 250 ml @ 0 mls/hr PROTOCOL IV 01/22/25 10:00 01/23/25 09:52 DC 01/22/25 14:24 60 MLS/HR Norepinephrine Bitartrate (Norepineph 16 Mg/250ml NS Premix) per protocol PROTOCOL IV 01/23/25 10:00 02/22/25 09:59 01/23/25 23:50 16 MG Octreotide Acetate 1250 mcg/ Sodium Chloride 250 ml @ 0 mls/hr PROTOCOL IV 01/22/25 12:30 01/22/25 12:17 DC Octreotide Acetate 1250 mcg/ Sodium Chloride 250 ml @ 0 mls/hr PROTOCOL IV 01/22/25 12:30 01/24/25 09:23 DC 01/22/25 12:41 5 MLS/HR Pantoprazole Sodium (PROTonix 40MG INJ) 40 mg BID IVP 01/24/25 21:00 01/24/25 15:02 DC Pantoprazole Sodium 80 mg/ Sodium Chloride 100 ml @ 10 mls/hr Q10H IV 01/22/25 09:00 01/24/25 09:23 DC 01/24/25 09:17 10 MLS/HR Pantoprazole Sodium 80 mg/ Sodium Chloride 100 ml @ 10 mls/hr Q10H IV 01/24/25 15:00 02/23/25 14:59 01/26/25 17:04 10 MLS/HR Pharmacy Profile Note (Pharmacy Communication) 1 each ONCE MISC 01/22/25 12:00 01/22/25 11:53 DC Pharmacy Profile Note (Pharmacy Communication) 1 each ONCE MISC 01/22/25 12:00 01/22/25 11:53 DC Pharmacy Profile Note (Pharmacy Communication) 1 each ONCE MISC 01/23/25 13:00 01/23/25 13:09 DC Pharmacy Profile Note (Pharmacy Communication) 1 each ONCE MISC 01/24/25 08:00 01/24/25 07:51 DC Phenylephrine HCl 100 mg/Sodium Chloride 250 ml @ 0 mls/hr AD PRN IV TITRATE 01/22/25 17:00 02/21/25 16:59 01/23/25 09:30 0 MLS/HR Piperacillin Sod/ Tazobactam Sod (Zosyn 3.375gm+NS 50ml) 3.375 gm Q8H IV 01/26/25 12:30 02/05/25 12:29 01/26/25 12:19 3.375 GM Potassium Chloride 100 ml @ 50 mls/hr AD PRN IV POTASSIUM PROTOCOL 01/22/25 15:30 01/24/25 07:50 DC Potassium Chloride 100 ml @ 100 mls/hr AD PRN IV POTASSIUM PROTOCOL 01/22/25 15:30 02/21/25 15:29 01/26/25 11:07 100 MLS/HR Potassium Chloride (K-Dur/Klor-Con 20meq) 20 meq AD PRN PO POTASSIUM PROTOCOL 01/22/25 15:30 02/21/25 15:29 01/26/25 06:19 20 MEQ Potassium Chloride (KCl 10% Elixir 20meq/15ml) 20 meq AD PRN PO POTASSIUM PROTOCOL 01/22/25 15:30 02/21/25 15:29 Propofol (DIPRivan 1000MG/ 100ML) 1,000 mg PROTOCOL PRN IV SEDATION 01/22/25 12:00 01/22/25 11:55 DC Sodium Bicarbonate (Sodium Bicarbonate) 650 mg BID PO 01/24/25 21:00 02/23/25 20:59 01/25/25 21:19 650 MG Sodium Chloride 1,000 ml @ 150 mls/hr Q6H40M IV 01/22/25 12:00 01/23/25 10:56 DC 01/23/25 02:45 150 MLS/HR Sucralfate (Carafate) 1 gm BID PO 01/23/25 21:00 01/23/25 11:41 DC Sucralfate (Carafate) 1 gm QID PO 01/24/25 17:00 02/23/25 16:59 01/25/25 21:19 1 GM Sucralfate (Carafate) 1 gm TID PO 01/23/25 14:00 01/24/25 15:02 DC 01/24/25 13:28 1 GM Thiamine HCl 100 mg/Sodium Chloride 50 ml @ 100 mls/hr Q24H IV 01/23/25 14:00 01/25/25 14:29 DC 01/25/25 13:53 100 MLS/HR Vancomycin HCl (Vancomycin 750mg) 750 mg Q24H IVPB 01/23/25 17:00 01/23/25 10:56 DC Vancomycin HCl (Vancomycin Protocol) 1 each AD IV 01/22/25 15:00 01/23/25 10:56 DC Vasopressin 40 units/Sodium Chloride 40 ml @ 0 mls/hr PROTOCOL IV 01/25/25 09:30 02/24/25 09:29 Wound Care/ Dressing Products (Venelex Ointment) BID TP 01/25/25 21:00 01/25/25 15:58 DC DIAGNOSTICS / RADIOLOGY: [place] [id number] IMAGING REPORT Signed PATIENT: JUSTIN KLINE MR#: [id number] : 1955 SEX: F AGE: 70 LOCATION: 2CH ORDER 38 STATUS: ADM IN REPORT#: [id number] SERVICE 38 REASON: picc placement ORDERING PHYSICIAN: RERE BLAIR PROCEDURE: CXR1VW - CHEST 1VW CHEST 1VW REASON: picc placement COMPARISON: Prior chest radiograph from 01/25/2025 at 1534 is available. FINDINGS: Single view of the chest was obtained. Lungs are clear. Heart size is normal. There is uncoiling atherosclerotic change of thoracic ureter. There is no pulmonary vascular congestion. Mediastinum and bony thorax appear unremarkable. There is a right-sided PIC catheter tip in superior vena cava at the cavoatrial junction. Endotracheal tube is in satisfactory position. IMPRESSION: 1. Support lines are in satisfactory position.. 2. No evidence of airspace consolidation or pulmonary venous congestion. DICTATED BY: RENA MADDOX MD DATE: 01/25/251557 ELECTRONICALLY SIGNED BY: RENA MADDOX MD DATE: 01/25/25 1604 ASSESSMENT: Hematemesis POA Hemorrhagic shock Acute hypoxic respiratory failure status post intubation for airway protection Peg tube placement Peptic ulcer disease DVT of bilateral upper limbs Starvation ketoacidosis Hypokalemia Unstageable wound on sacrum Fecal impaction Obesity BMI 36.6 fecal impaction Knee injury versus underlying CKD Diabetes mellitus type 2 with associated hyperglycemia Severe hypoalbuminemia Hypertension Debility Small pericardial Effusion Left-sided pleural effusion PLAN: Hematemesis, peptic ulcer disease, POA - patient to be admitted to ICU -in reference to hematemesis. We will check H&H q.4 hours. Patient to have type and screen. If hemoglobin is less than seven. Patient will be receiving blood transfusion. - The patient will continue on Protonix drip and octreotide drip. - EGD done by Gastroenterology and have reported no active bleeding and clots in esophagus. - On 01/25/2025 her hemoglobin is 5.9, we gave 1 PRBC. Repeat Hb is 7.4. -GI wanted to do another EGD and colonoscopy today. -Bleeding scan showed no evidence of gastrointestinal hemorrhage. - Today her hemoglobin is 8.7 Acute hypoxic respiratory failure status post intubation for airway protection - critical care is on board and we will follow critical care recommendations regarding ventilator and sedation protocol - currently on ACVC, TV 400, RR 18, Fio2 50%, PEEP 5. Hemorrhagic shock - patient currently on phenylephrine drip - weaned off Levophed - continuing midazolam, fentanyl currently. - we will follow critical Care recommendations in managing hemorrhagic shock DVT of bilateral upper limbs -US doppler of both upper limbs, results showed evidence of DVT. -Consulted gastroenterology for anticoagulation recommendations. They recommended to give high dose Protonix drip for 48 hours and carafate 1gm PO QID and after 48 hours start heparin drip. -Patient is not a candidate for SVC filter. Starvation ketoacidosis Her urinalysis showed ketones in the urine. Unstageable wound on sacrum - we will request wound care -Wound care recommended to cleanse with normal saline, pat dry, apply medihoney, cover with allevyn, change daily and prnKeep wounds clean and dry , Offloading/reposition q 2 hours Hypokalemia Today her blood work showed that potassium is 2.6. We replaced the potassium. Repeat potassium levels are 2.8 and 3.1. Will repeat her labs tomorrow. Diabetes mellitus type 2 with associated hyperglycemia, Severe hypoalbuminemia, Hypertension, Debility, Small pericardial Effusion, Left-sided pleural effusion - echo showed no pericardial effusion, LVEF of 50-55% - continue insulin sliding scale - continue thiamine supplementation - Continue patient on cefepime, metronidazole for broad coverage - monitor vitals Q8 - monitor a.m. labs - nephrology was consulted and they have recommended to discontinue vancomycin, obtain urine analysis and complete renal ultrasound. -Repeated urinalysis, urine electrolytes, urine protein today. Urinalysis showed turbid urine, protein >300, ketones 5, moderate occult blood, moderate leukocyte esterase, RBC 6 to 10, WBC is TNTC, protein 410.9, sodium is 43, potassium is 36, chloride is 40. - We also albumin. GI prophylaxis: Pantoprazole ATTESTATION BY PHYSICIAN I have seen and examined the patient. I reviewed the documentation, medical decision making, and treatment plan as noted by the resident provider above. I agree with the findings and plan of care. Saul Bales IV, MD, AKSHAY MD Jan 26, 2025 17:25
--- NOTE | 2025-01-26 20:22 | HMCIMG ---
EXAM: XR Chest, 3 Views. CLINICAL HISTORY: 70-year-old female ventilated patient. COMPARISON: Prior exam from 01/25/2025 at 3:39 PM. FINDINGS: LUNGS: Minimal pulmonary congestion, new compared to the prior exam. PLEURAL SPACES: No pleural effusion or pneumothorax. HEART: Moderate cardiomegaly, somewhat more pronounced compared to the prior exam. BONES: No acute osseous abnormality. VASCULATURE: Atherosclerotic aorta. LINES AND TUBES: Endotracheal tube tip at the arm[place]. Recommendation for withdrawal of 1 to 2 cm. IMPRESSION: 1. Endotracheal tube tip at the arm[place]. Recommend withdrawal of 1 to 2 cm. 2. Moderate cardiomegaly, somewhat more pronounced compared to the prior exam. 3. Atherosclerotic aorta. 4. Minimal pulmonary congestion, new compared to the prior XR chest from 01/25/2025 at 3:39 PM. /[place]
[2025-01-27] VITALS (101 sets, daily range): BP systolic 68–182; BP diastolic 42–76; PULSE 65–116; RESP 14–30; TEMP 96.4–97.9; O2SAT 100
[2025-01-27 05:39] LABS: IMMATURE GRANULOCYTE ABSOLUTE 0.12 K/uL (0-1); NUCLEATED RED BLOOD CELLS 0.6 % (0.0-0.19); PLATELET COUNT (AUTO) 290 K/uL (130-400); RED BLOOD CELL COUNT(AUTO) 2.94 MIL/uL (4.00-5.50); RED CELL DISTRIBUTION WIDTH 17.2 % (11.0-15.5); WHITE BLOOD COUNT (AUTO) 10.8 K/uL (4.8-10.8)
[2025-01-27 05:55] LABS: ASPARTATE AMINOTRANSFERASE 17.0 U/L (10-37); CREATININE 2.5 mg/dL (0.5-1.0); GLOMERULAR FILTR. RATE CALC 20.0 mL/min (>90); GLUCOSE,RANDOM 178.0 mg/dL (70-105); PHOSPHORUS 3.1 mg/dL (2.5-4.9); SODIUM SERUM 146.0 mmol/L (136-145); TOTAL PROTEIN, SERUM 4.5 g/dL (6.0-8.3); UREA NITROGEN, BLOOD 33.0 mg/dL (7-18)
--- NOTE | 2025-01-27 10:28 | PN ---
[facility] PROGRESS NOTE Date Patient Seen: Jan 27, 2025 Time of Visit: 10:14 Supervising Physician: Dr Marshall Rick Primary Care Physician: NANDO HUYNH Outpatient Specialists: [ ] Inpatient Consults: DR RAMOS, DR HEAD, DR SIMENTAL Assessment: Sepsis, with severe septic shock Acute complicated cystitis - ESBL to urine Acute hypoxemic respiratory failure (intubated) Deep vein thrombosis in the right subclavian and axillary veins and Right basilic vein thrombosis. ESBL to urine UGIB with hematemesis Acute on chronic anemia 2nd to above Type II diabetes mellitus with hyperglycemia Dysphagia with G-tube Acute on chronic kidney disease INTERVAL HISTORY: Patient seen and examined, all labs and imaging have been reviewed Patient remains intubated, FiO2 is at 30%, peep of 5, patient is status post the EGD and colonoscopy which did not reveal any acute findings So the plan is to go ahead and start waking the patient up and start spontaneous breathing trials She is on low-dose levo Potassium remains low, currently being replaced Urine positive for ESBL, antibiotics were adjusted No family members at bedside Hemoglobin holding stable, US - Deep vein thrombosis in the right subclavian and axillary veins and Right basilic vein thrombosis. holding antiplatelet therapy due to the bleed. Her hemoglobin is 8.7, no transfusion overnight but nursing reports continued red stools Plan: Vent management, ABG, chest x-ray , spontaneous breathing trials Following hemoglobin and transfusing as needed Following GI recs Following cultures, antibiotics Will Start on DVT tx Total critical care time 49 minutes, patient remains critically ill, continues on pressor support as long of with vent management. REVIEW OF SYSTEMS: Unable to obtain due to patient's intubated PHYSICAL EXAM: GENERAL: Critically ill intubated and sedated. HEENT: Sclera non icteric, dry mucosa NECK: Supple, no JVD, trachea midline LUNGS: Clear breath sounds bilaterally. No wheezes HEART: Regular rate and rhythm. Normal S1 and S2, without murmurs ABD: Abdomen soft, nontender. Bowel sounds present EXT: No clubbing cyanosis or edema, history of right BKA NEURO: Intubated and sedated Vital Signs (last 8hr) Date Time Temp Pulse Resp B/P (MAP) Pulse Ox O2 Delivery O2 Flow Rate FiO2 01/27/25 09:30 74 30 01/27/25 06:45 78 30 01/27/25 06:15 79 17 101/56 (71) 100 01/27/25 06:00 80 17 110/56 (74) 100 01/27/25 05:47 30 01/27/25 05:45 81 16 106/57 (73) 100 01/27/25 05:30 82 15 101/51 (68) 100 01/27/25 05:15 83 16 112/60 (77) 100 01/27/25 05:00 85 14 90/52 (65) 100 01/27/25 04:45 89 16 142/71 (94) 100 01/27/25 04:30 86 15 126/60 (82) 100 01/27/25 04:15 86 17 182/68 (106) 100 01/27/25 04:00 69 14 68/43 (51) 100 01/27/25 04:00 97.9 01/27/25 04:00 100 Ventilator+ 30 01/27/25 03:45 78 17 115/58 (77) 100 01/27/25 03:42 78 30 01/27/25 03:30 78 14 111/58 (75) 100 01/27/25 03:15 78 14 115/54 (74) 100 01/27/25 03:00 78 18 102/49 (66) 100 01/27/25 02:45 78 15 103/51 (68) 100 01/27/25 02:30 79 17 115/62 (79) 100 01/27/25 02:15 80 16 113/59 (77) 100 LABS: Hematology Labs: Test 01/27/25 05:16 Range/Units White Blood Count 10.8 4.8-10.8 K/uL Red Blood Count 2.94 L 4.00-5.50 MIL/uL Hemoglobin 8.7 L 12.0-16.0 g/dL Hematocrit 25.6 L 36-48 % Mean Corpuscular Volume 87.1 79-99 fL Mean Corpuscular Hemoglobin 29.6 27.0-33.0 pg Mean Corpuscular Hemoglobin Concent 34.0 32.0-36.0 g/dL Red Cell Distribution Width 17.2 H 11.0-15.5 % Platelet Count 290 130-400 K/uL Mean Platelet Volume 10.7 H 7.5-10.5 fL Immature Granulocyte % (Auto) 1.1 H 0-1 % Neutrophils (%) (Auto) 63.2 40.0-77.0 % Lymphocytes (%) (Auto) 23.9 21.0-51.0 % Monocytes (%) (Auto) 8.2 3.0-13.0 % Eosinophils (%) (Auto) 2.6 0.0-8.0 % Basophils (%) (Auto) 1.0 0.0-5.0 % Neutrophils # (Auto) 6.8 1.8-7.7 K/uL Lymphocytes # (Auto) 2.6 1.0-4.8 K/uL Monocytes # (Auto) 0.9 0.1-1.0 K/uL Eosinophils # (Auto) 0.28 0.00-0.70 K/uL Basophils # (Auto) 0.11 0.00-0.20 K/uL Absolute Immature Granulocyte (auto 0.12 0-1 K/uL Nucleated Red Blood Cells 0.6 H 0.0-0.19 % Chemistry Labs: Test 01/27/25 05:37 01/27/25 05:16 Range/Units Whole Blood Glucose 162 H 70-110 MG/DL Sodium Level 146 H 136-145 mmol/L Potassium Level 2.9 *L 3.5-5.1 mmol/L Chloride Level 112 H 101-111 mmol/L Carbon Dioxide Level 18 L 21-32 mmol/L Blood Urea Nitrogen 33 H 7-18 mg/dL Creatinine 2.5 H 0.5-1.0 mg/dL Glomerular Filtration Rate Calc 20 >90 mL/min Random Glucose 178 H 70-105 mg/dL Total Calcium 7.3 L 8.5-10.1 mg/dL Phosphorus Level 3.1 2.5-4.9 mg/dL Magnesium Level 1.90 1.80-2.40 mg/dL Total Bilirubin 0.4 0.2-1.0 mg/dL Aspartate Amino Transf (AST/SGOT) 17 10-37 U/L Alanine Aminotransferase (ALT/SGPT) 7 L 12-78 U/L Alkaline Phosphatase 148 H 50-136 U/L C-Reactive Protein, Quantitative 223.10 H 0.5-3.0 mg/L Total Protein 4.5 L 6.0-8.3 g/dL Albumin 1.0 L 3.5-5.0 g/dL DIAGNOSTICS / RADIOLOGY RESULTS: [ ] PLAN NEURO: Minimize central acting medications as possible. Fall Precautions. Well lighted room through the day and minimize interruptions through the night to prevent acute delirium. PULMONARY: Supplemental 02 as needed Titrate Fio2 to keep Spo2 > or = 90% DuoNebs and CPT as needed IS hourly while awake for pulmonary hygiene Out of bed to chair as tolerated VAP Bundle Vent/BIPAP Settings: Assist-control volume control tidal volume of 400 respiratory rate of 18 FiO2 of 50% and PEEP of five. Maintain plateau pressure less than 30 CARDIOVASCULAR: Follow hemodynamics. Titrate vasopressor to keep MAP >65 or systolic blood pressure >95mmHg Drips: Fentanyl Versed Levophed Vasopressin Protonix Sandostatin LINES: Right femoral central line PICC line pending GI & NUTRITION: Continue nutritional support Aspirations precautions Prokinetic agents and laxatives as needed KIDNEYS & ELECTROLYTES: Strict monitoring of intake and output Daily weights Avoid nephrotoxic agents Monitor electrolytes and replace as needed Goal urine output of 30mL/hr or 0.5mL/kg/hr Urine output: [ ] Fluid Balance: [ ] ENDOCRINE: Maintain blood glucose between 100-180 at all times. Insulin sliding scale for blood glucose management INFECTIOUS DISEASE: Trend temperature. Leonard-culture if febrile. Micro: [ ] follow urine culture blood culture neg Antibiotics: [ ] cefepime flagyl zyvox HEMATOLOGY & COAGULATION: Monitor H&H. Keep Hgb > 7 Transfuse 1 unit of PRBC for Hgb < 7 Transfuse 1 pack of platelets of platelets < 20, 000 Watch for any signs and symptoms of bleeding SKIN: Pressure ulcer prevention per facility protocol Rehab: PT/OT Prophylaxis: GI: Protonix 40 mg b.i.d. DVT: SCDs avoid anticoagulants due to hematemesis Code Status: Full Resuscitation Disposition: [ ICU Case was discussed and seen with my supervising physician. The above plan was formulated and agreed upon. RERE BLAIR Jan 27, 2025 10:28
--- NOTE | 2025-01-27 14:04 | PN ---
GASTROENTEROLOGY PROGRESS NOTE Date of Visit: Jan 27, 2025 Time of Visit: 14:03 Events / Notes: [v[70 yo female patient with past medical history for seizures, hypertension, CVA, BKA, who presented to ER with hematemesis. Patient had had EGD with peg tube placement in November 2024 at [facility] and had had an EGD in December at [facility] d/t hematemesis where she was found to have Grade D esophagitis. We were consulted for Hematemesis. Patient underwent an EGD on 01/23/25 and was found to have a non-bleeding tear was found in the lower third of esophagus. Large clot. No active bleeding. LA Grade D esophagitis. Diffuse moderately erythematous mucosa without bleeding in the stomach. A gastric tube was found in gastric body. Patient's WBC of 14.4, hemoglobin of 6.6, patient received 1 unit of PRBC and hemoglobin trended up to 7.1, hematocrit 21.7, platelets 367. Chemistry significant for chloride of 113, BUN 39, creatinine 2.4, glucose 153, calcium 7.0, iron 28, TIBC 44, 63.6% saturation, ferritin 1612. Total bilirubin, AST, ALT, alkaline phosphatase are normal. Total protein of 4.6, albumin 0.9. TSH 7.62. Troponin 507. Patient was found to have DVTs of the upper extremities. We were consulted for anticoagulant recommendations. 01/25/25: HGB trending down to 5.9 this am. Patient's nurse reports patient is having hematochezia. Hemoglobin trended up to 7.4 after 1 unit of RBCs transfused. WBCs at 11.2, platelets 273. Potassium 3.2, chloride 112, carbon dioxide 19, BUN 40, creatinine 2.6. Calcium 7.3, glucose 263, albumin 1.2, total protein 4.4. GI bleed scan showed no evidence of gastrointestinal hemorrhage during the examination acquisition. Plan for EGD and colonoscopy in am. Patient remains intubated. 01/27/25: Patient underwent an EGD and colonoscopy on 01/26/2025 and was found to have many superficial esophageal ulcers with no stigmata of recent bleeding were found. Clotted blood was found in the gastric fundus around 1 L of blood- tinged fluid suctioned from stomach revealing healthy gas gastric mucosa. There is evidence of an intact gastrostomy with a patent G-tube present in the gastric body this was characterized by ulceration. Normal examined duodenum. Colonoscopy findings show the perianal and digital rectal exams were normal. Normal mucosa was found in the entire colon. Old melena type blood found. Patient remains intubated and sedated. No family at bedside. Review of Systems: Unable to completed d/t patient's intubation status Physical Exam: GEN: Intubated and sedated CHEST: Lung auscultation revealed normal breath sounds bilaterally. CARDIAC:Heart sounds are regular. ABD: Soft, non-tender and not distended. Peg tube in place. EXT: Right BKA NEURO: Intubated and sedated. Vital Signs (last 8hr) Date Time Temp Pulse Resp B/P (MAP) Pulse Ox O2 Delivery O2 Flow Rate FiO2 01/27/25 12:00 97.5 01/27/25 12:00 100 Ventilator+ 30 01/27/25 11:53 69 30 01/27/25 11:15 71 14 94/49 (64) 100 01/27/25 11:00 73 14 89/46 (60) 100 01/27/25 10:45 76 14 91/49 (63) 100 01/27/25 10:30 80 19 148/70 (96) 100 01/27/25 10:15 79 17 139/66 (90) 100 01/27/25 10:00 30 01/27/25 10:00 74 17 100 01/27/25 09:45 74 17 100 01/27/25 09:30 74 30 01/27/25 09:30 74 17 100 01/27/25 09:15 74 17 100 01/27/25 09:00 75 15 141/67 (91) 100 01/27/25 08:45 71 15 109/57 (74) 100 01/27/25 08:30 71 15 131/57 (81) 100 01/27/25 08:15 70 15 125/56 (79) 100 01/27/25 08:00 97.9 01/27/25 08:00 71 16 132/60 (84) 100 01/27/25 08:00 100 Ventilator+ 30 01/27/25 07:45 70 14 124/63 (83) 100 01/27/25 07:30 67 14 109/55 (73) 100 01/27/25 07:15 66 22 122/64 (83) 100 01/27/25 07:00 73 15 106/57 (73) 100 01/27/25 06:45 78 30 01/27/25 06:15 79 17 101/56 (71) 100 Laboratory: [ ] Laboratory: Test 01/27/25 12:40 01/27/25 11:12 01/27/25 05:16 01/26/25 03:16 Range/Units Whole Blood Glucose 186 H 70-110 MG/DL Potassium Level 3.2 L 3.5-5.1 mmol/L Magnesium Level 2.00 1.80-2.40 mg/dL White Blood Count 10.8 4.8-10.8 K/uL Red Blood Count 2.94 L 4.00-5.50 MIL/uL Hemoglobin 8.7 L 12.0-16.0 g/dL Hematocrit 25.6 L 36-48 % Mean Corpuscular Volume 87.1 79-99 fL Mean Corpuscular Hemoglobin 29.6 27.0-33.0 pg Mean Corpuscular Hemoglobin Concent 34.0 32.0-36.0 g/dL Red Cell Distribution Width 17.2 H 11.0-15.5 % Platelet Count 290 130-400 K/uL Mean Platelet Volume 10.7 H 7.5-10.5 fL Immature Granulocyte % (Auto) 1.1 H 0-1 % Neutrophils (%) (Auto) 63.2 40.0-77.0 % Lymphocytes (%) (Auto) 23.9 21.0-51.0 % Monocytes (%) (Auto) 8.2 3.0-13.0 % Eosinophils (%) (Auto) 2.6 0.0-8.0 % Basophils (%) (Auto) 1.0 0.0-5.0 % Neutrophils # (Auto) 6.8 1.8-7.7 K/uL Lymphocytes # (Auto) 2.6 1.0-4.8 K/uL Monocytes # (Auto) 0.9 0.1-1.0 K/uL Eosinophils # (Auto) 0.28 0.00-0.70 K/uL Basophils # (Auto) 0.11 0.00-0.20 K/uL Absolute Immature Granulocyte (auto 0.12 0-1 K/uL Nucleated Red Blood Cells 0.6 H 0.0-0.19 % Sodium Level 146 H 136-145 mmol/L Chloride Level 112 H 101-111 mmol/L Carbon Dioxide Level 18 L 21-32 mmol/L Blood Urea Nitrogen 33 H 7-18 mg/dL Creatinine 2.5 H 0.5-1.0 mg/dL Glomerular Filtration Rate Calc 20 >90 mL/min Random Glucose 178 H 70-105 mg/dL Total Calcium 7.3 L 8.5-10.1 mg/dL Phosphorus Level 3.1 2.5-4.9 mg/dL Total Bilirubin 0.4 0.2-1.0 mg/dL Aspartate Amino Transf (AST/SGOT) 17 10-37 U/L Alanine Aminotransferase (ALT/SGPT) 7 L 12-78 U/L Alkaline Phosphatase 148 H 50-136 U/L C-Reactive Protein, Quantitative 223.10 H 0.5-3.0 mg/L Total Protein 4.5 L 6.0-8.3 g/dL Albumin 1.0 L 3.5-5.0 g/dL Blood Gas Specimen Type Arterial Arterial Blood pH 7.442 7.350-7.450 Arterial Blood Partial Pressure CO2 27 L 32-45 mmHg Arterial Blood Partial Pressure O2 120.3 H 83.0-108.0 mmHg Arterial Blood HCO3 17.9 L 21.0-28.0 mmol/L Arterial Blood Oxygen Saturation 98.2 H 94.0-98.0 % Arterial Blood Base Excess -5.2 L -2.0-3.0 mmol/L Hemoglobin (Blood Gas) 9.9 L 12.0-16.0 g/dL Sodium (Blood Gas) 139 136-145 MMOL/L Bedside Potassium (Blood Gas) 2.8 *L 3.4-4.5 MMOL/L Bedside Chloride (Blood Gas) 113 H 98-107 MMOL/L Bedside Glucose (Blood Gas) 129 H 65-95 MG/DL Bedside Ionized Calcium (Blood Gas) 1.15 1.15-1.33 MMOL/L Bedside Lactic Acid (Blood Gas) 1.79 H 0.36-0.75 MMOL/L Blood Gas Temperature 37.0 35.5-37.0 CELSIUS Blood Gas Respiration Rate 14.0 min. Blood Gas Vent Mode LR ROOM AIR FiO2 30.0 % Blood Gas Tidal Volume 400 ml Blood Gas PEEP 5 cm H2O Blood Gas Specimen Comment AC Test 01/25/25 19:06 01/25/25 16:19 Range/Units Influenza Type A Antigen Negative For Type A NEGATIVE Influenza Type B Antigen Negative For Type B NEGATIVE SARS-CoV-2 Antigen (Rapid) PRESUMPTIVE NEGATIVE NEGATIVE Vancomycin Level Trough 15.5 10.0-20.0 UG/ML Current Medications Medications (Trade) Dose Ordered Sig/Arik Route PRN Reason Start Time Stop Time Status Last Admin Dose Admin Albumin Human 50 ml @ 0 mls/hr Q8H6 IV 01/24/25 14:00 01/24/25 22:00 DC 01/24/25 20:45 1,200 MLS/HR Artificial Tears (Artificial Tears) 1 DROP OR AD Q8H OU 01/23/25 19:30 02/22/25 19:29 01/27/25 08:50 1 DROP Bumetanide (Bumex 1mg Vial) 1 mg ONCE PRN IVP AFTER TRANSFUSION 01/24/25 08:00 01/24/25 09:23 DC Bumetanide (Bumex 1mg Vial) 2 mg ONCE PRN IVP AFTER TRANSFUSION 01/24/25 14:00 01/24/25 14:00 DC 01/24/25 13:28 2 MG Cefepime HCl (MAXipime 2 gm vial) 2 gm Q24H IVPB 01/23/25 12:00 01/26/25 12:05 DC 01/26/25 11:38 2 GM Ceftriaxone Sodium (ROCEphine 1G INJ) 1 gm Q24H IVPB 01/22/25 12:00 01/22/25 16:25 DC 01/22/25 14:18 1 GM Chlorhexidine Gluconate (Peridex) 15 ml TID MM 01/23/25 21:00 02/06/25 20:59 01/27/25 08:47 15 ML Dextrose (D50w) 50 ml AD PRN IV HYPOGLYCEMIA PROTOCOL 01/22/25 15:30 02/21/25 15:29 Fentanyl Citrate 100 ml @ 2.5 mls/hr PROTOCOL IV 01/22/25 12:00 01/22/25 11:55 DC Fentanyl Citrate 100 ml @ 2.5 mls/hr PROTOCOL IV 01/22/25 12:00 01/29/25 11:59 01/27/25 05:34 2.5 MLS/HR Glucagon (Glucagon 1mg Kit) 1 mg AD PRN IM HYPOGLYCEMIA PROTOCOL 01/22/25 15:30 02/21/25 15:29 Insulin Human Regular (humuLIN R 100 UNIT/ML 3ML) INSULIN SLIDING SCAL... ACHS SQ 01/22/25 21:00 01/25/25 20:51 DC 01/25/25 16:29 3 UNIT Insulin Human Regular (humuLIN R 100 UNIT/ML 3ML) INSULIN SLIDING SCAL... Q6H6 SQ 01/26/25 10:00 02/25/25 09:59 Leptospermum Honey (Medihoney) 1 APPLICATION DAILY TP 01/26/25 09:00 02/25/25 08:59 01/27/25 08:50 1 APPL Levetiracetam (kepPRA 500 MG TABLET) 500 mg BID PO 01/22/25 21:00 01/22/25 22:13 DC Levetiracetam 500 mg/Sodium Chloride 100 ml @ 400 mls/hr Q12H9 IV 01/22/25 22:00 02/21/25 21:59 01/27/25 08:47 400 MLS/HR Levothyroxine Sodium (SYNTHroid VIAL 100MCG) 100 mcg SYN IV 01/23/25 06:30 02/22/25 06:29 01/27/25 06:09 100 MCG Linezolid 300 ml @ 150 mls/hr Q12H IV 01/24/25 08:00 02/03/25 07:59 01/27/25 08:46 150 MLS/HR Magnesium Sulfate 50 ml @ 0 mls/hr PROTOCOL PRN IV Hypomagnesemia 01/22/25 15:30 02/21/25 15:29 01/27/25 02:59 25 MLS/HR Metronidazole/ Sodium Chloride 100 ml @ 100 mls/hr Q8H6 IVPB 01/22/25 22:00 01/26/25 12:05 DC 01/26/25 06:13 100 MLS/HR Midazolam HCl 50 ml @ 0 mls/hr PROTOCOL IV 01/22/25 12:00 01/29/25 11:59 01/27/25 09:10 5 MLS/HR Norepinephrine 250 ml @ 0 mls/hr PROTOCOL IV 01/22/25 10:00 01/23/25 09:52 DC 01/22/25 14:24 60 MLS/HR Norepinephrine Bitartrate (Norepineph 16 Mg/250ml NS Premix) per protocol PROTOCOL IV 01/23/25 10:00 02/22/25 09:59 01/27/25 00:30 16 MG Octreotide Acetate 1250 mcg/ Sodium Chloride 250 ml @ 0 mls/hr PROTOCOL IV 01/22/25 12:30 01/22/25 12:17 DC Octreotide Acetate 1250 mcg/ Sodium Chloride 250 ml @ 0 mls/hr PROTOCOL IV 01/22/25 12:30 01/24/25 09:23 DC 01/22/25 12:41 5 MLS/HR Pantoprazole Sodium (PROTonix 40MG INJ) 40 mg BID IVP 01/24/25 21:00 01/24/25 15:02 DC Pantoprazole Sodium 80 mg/ Sodium Chloride 100 ml @ 10 mls/hr Q10H IV 01/22/25 09:00 01/24/25 09:23 DC 01/24/25 09:17 10 MLS/HR Pantoprazole Sodium 80 mg/ Sodium Chloride 100 ml @ 10 mls/hr Q10H IV 01/24/25 15:00 02/23/25 14:59 01/27/25 03:57 10 MLS/HR Pharmacy Profile Note (Pharmacy Communication) 1 each ONCE MISC 01/22/25 12:00 01/22/25 11:53 DC Pharmacy Profile Note (Pharmacy Communication) 1 each ONCE MISC 01/22/25 12:00 01/22/25 11:53 DC Pharmacy Profile Note (Pharmacy Communication) 1 each ONCE MISC 01/23/25 13:00 01/23/25 13:09 DC Pharmacy Profile Note (Pharmacy Communication) 1 each ONCE MISC 01/24/25 08:00 01/24/25 07:51 DC Phenylephrine HCl 100 mg/Sodium Chloride 250 ml @ 0 mls/hr AD PRN IV TITRATE 01/22/25 17:00 02/21/25 16:59 01/23/25 09:30 0 MLS/HR Piperacillin Sod/ Tazobactam Sod (Zosyn 3.375gm+NS 50ml) 3.375 gm Q8H IV 01/26/25 12:30 02/05/25 12:29 01/27/25 12:44 3.375 GM Potassium Chloride 100 ml @ 50 mls/hr AD PRN IV POTASSIUM PROTOCOL 01/22/25 15:30 01/24/25 07:50 DC Potassium Chloride 100 ml @ 100 mls/hr AD PRN IV POTASSIUM PROTOCOL 01/22/25 15:30 02/21/25 15:29 01/27/25 12:44 100 MLS/HR Potassium Chloride (K-Dur/Klor-Con 20meq) 20 meq AD PRN PO POTASSIUM PROTOCOL 01/22/25 15:30 02/21/25 15:29 01/26/25 06:19 20 MEQ Potassium Chloride (KCl 10% Elixir 20meq/15ml) 20 meq AD PRN PO POTASSIUM PROTOCOL 01/22/25 15:30 02/21/25 15:29 Propofol (DIPRivan 1000MG/ 100ML) 1,000 mg PROTOCOL PRN IV SEDATION 01/22/25 12:00 01/22/25 11:55 DC Sodium Bicarbonate (Sodium Bicarbonate) 650 mg BID PO 01/24/25 21:00 02/23/25 20:59 01/27/25 08:47 650 MG Sodium Chloride 1,000 ml @ 150 mls/hr Q6H40M IV 01/22/25 12:00 01/23/25 10:56 DC 01/23/25 02:45 150 MLS/HR Sucralfate (Carafate) 1 gm BID PO 01/23/25 21:00 01/23/25 11:41 DC Sucralfate (Carafate) 1 gm QID PO 01/24/25 17:00 02/23/25 16:59 01/27/25 08:47 1 GM Sucralfate (Carafate) 1 gm TID PO 01/23/25 14:00 01/24/25 15:02 DC 01/24/25 13:28 1 GM Thiamine HCl 100 mg/Sodium Chloride 50 ml @ 100 mls/hr Q24H IV 01/23/25 14:00 01/25/25 14:29 DC 01/25/25 13:53 100 MLS/HR Vancomycin HCl (Vancomycin 750mg) 750 mg Q24H IVPB 01/23/25 17:00 01/23/25 10:56 DC Vancomycin HCl (Vancomycin Protocol) 1 each AD IV 01/22/25 15:00 01/23/25 10:56 DC Vasopressin 40 units/Sodium Chloride 40 ml @ 0 mls/hr PROTOCOL IV 01/25/25 09:30 02/24/25 09:29 Wound Care/ Dressing Products (Venelex Ointment) BID TP 01/25/25 21:00 01/25/25 15:58 DC Diagnostics / Radiology: [COPY/PASTE HERE IF NO REPORTS PLEASE DELETE SECTION] Assessment: [Acute blood loss anemia LA grade D esophageal varices Esophageal tear ] Plan: Case discussed with Dr. Branch [Recommend trending hgb every 6 hours and transfuse as needed to goal HGB>7 Continue Protonix drip for the next 48 hours, then protonix 40mg IV bid. Carafate 1 gram via peg tube qid. Please call with questions, concerns, and change in clinical status and any s/s of any overt GI bleeding. Thank you for this consult. ] HORACIO RASHID NP Jan 27, 2025 14:04
--- NOTE | 2025-01-27 16:10 | PN ---
[facility] PROGRESS NOTE Date of Service: Jan 27, 2025 Time of Service: 15:56 SUBJECTIVE: 70-year-old female with past medical history of diabetes mellitus type 2, hypertension, anemia, history of CVA, history of right below-knee amputation who presented to the hospital secondary to hematemesis. Patient is currently intubated and sedated. The patient's history is mostly obtained from patient's who is present at bedside and from ED provider. The patient was noted to have black colored vomit at home which started yesterday. She has a history of peptic ulcer disease. She also has a PEG tube placed around two weeks ago. Peg tube was placed in [facility]. Per patient is able to swallow better now. denied any fever, chills, shortness for breath, chest pain. History is fairly limited at this time as patient is not able to participate in conversation. Labs were Notable for white count of 9.1, hemoglobin was 9.1, MCV was 86.7, platelet count was 456 K, sodium was 138, potassium was 3.1, bicarb was , creatinine was 1.7, glucose was 234, alk-phos was 153, total protein was 5.0, albumin was 0.9, lipase was negative normal Underwent a CT abdomen pelvis which showed no acute process in the CT abdomen without IV contrast. Patient was noted to have cystic structure in the right adrenal region measuring 5.9 x 3.9 cm. The patient also had fecal impaction noted. In the ED patient had episode of hematemesis and she was intubated for airway protection by ED provider. 01/23/2025: The patient is examined at the bedside. She was sedated and not responsive during my visit. GI performed EGD in the morning and they have observed no active bleeding. Nurse notified an unstageable wound on sacrum for which Wound consult is placed today. We will be manage as per critical Care recommendations. 01/24/2025: The patient is examined at the bedside. She was sedated and not responsive during my visit. Her arms are swollen. Her vitals are normal except for blood pressure is 97/51. Her labs are in the normal range except for Hb is 6.6, chloride is 113, BUN is 39, creatinine is 2.4, iron is 28, TIBC is 44, % saturation is 63.6, TSH is 7.62. Her urine culture grew 10,000-50,000 CFU. Identification and susceptibility are in process. Blood culture show no growth after 48 hours. Renal ultrasound show renal parenchymal disease. As her hemoglobin is low she received a blood transfusion. After the transfusion her hemoglobin is 7.1. We ordered a bilateral upper limb doppler which showed evidence of DVT. Gastroenterology was consulted to give recommendations on starting anticoagulation. GI recommended high dose Protonix drip for 48 hours and carafate 1gm PO QID, after 48 hours start heparin drip. IR was called to ask about the option of placing an SVC filter, and they recommended mechanical thrombectomy. The patient is not a good candidate for an SVC filter. A urinalysis, urine electrolytes, urine protein were ordered today. Urinalysis showed turbid urine, protein >300, ketones 5, moderate occult blood, moderate leukocyte esterase, RBC 6 to 10, WBC is TNTC, protein 410.9, sodium is 43, potassium is 36, chloride is 40. 01/25/2025: The patient is examined at the bedside. She was sedated and not responsive during my visit. Her arms are swollen. Her vitals are normal. Her labs are in the normal range except for Hb is 5.9, WBC is 11.2, Cl is 112, potassium is 3.2, CO2 is 19, BUN is 40 creatinine is 2.6. As her hemoglobin is low we gave a t ransfusion and the repeat Hb is 7.4. Gastroenterology will do EGD and colonoscopy tomorrow morning. Hematology is consulted and they recommended same management. Wound care recommended to cleanse with normal saline, pat dry, apply medihoney, cover with allevyn, change daily and prnKeep wounds clean and dry , Offloading/reposition q 2 hours. Bleeding scan showed no evidence of gastrointestinal hemorrhage. 01/26/2025: The patient is examined at the bedside. She was sedated and not responsive during my visit. Her arms are swollen. Her vitals are normal except for blood pressure which is 96/45. Her labs are in the normal range except for Hb is 8.7, K is 2.8, Cl is 112, CO2 is 19, BUN is 37, creatinine is 2.5, Albumin is 1.1. She is scheduled for an EGD and colonoscopy today. We replaced the potassium and the repeat potassium levels are 2.8 and 3.1. 01/27/2025: Patient is examined at the bedside. She was sedated and not responsive during my visit. Her arms are swollen. Her vitals are normal except for blood pressure which is 94/49. Her labs are in the normal range except for hemoglobin is 8.7, potassium is 2.9, chloride is 112, BUN is 33, creatinine is 2.5, albumin is 1, CRP is 223.1. Urine culture showed ESBL which is sensitive to Zosyn, meropenem and levofloxacin. She underwent endoscopy and colonoscopy yesterday which showed no evidence of bleeding. Gastroenterology recommended to follow within 1 week after discharge. Chest x-ray showed minimal pulmonary congestion. The nurse told us that she will try waking up the patient, extubate her and try spontaneous breathing trial. REVIEW OF SYSTEMS Unable to obtain as patient is sedated PHYSICAL EXAM GENERAL APPEARANCE: He is currently intubated and sedated NEUROLOGICAL: Cranial nerves II-XII grossly intact. Motor is 5/5 in bilateral upper and lower extremities proximal to distal. No sensory deficits. HEENT: Face is symmetric. Pupils are equal and reactive. Extraocular movements are intact. NECK: Supple. No JVD. No thyromegaly. No submental, submandibular, pre- /postauricular, occipital or supraclavicular lymphadenopathy. CHEST: Normal chest expansion. No Telemetry. LUNGS: Absence of any rales, rhonchi or any wheezing. CARDIOVASCULAR: Regular. S1 and S2 normal. No appreciable rubs, murmurs or gallops. ABDOMEN: Soft, nontender, and nondistended. There is no rebound, voluntary guarding, or rigidity. Patient has a PEG tube in place : Deferred. No Kamara. EXTREMITIES: Below-knee amputation of the right lower extremity SKIN: No skin breakdown. Vital Signs (last 8hr) Date Time Temp Pulse Resp B/P (MAP) Pulse Ox O2 Delivery O2 Flow Rate FiO2 01/27/25 15:01 79 30 01/27/25 12:00 97.5 01/27/25 12:00 100 Ventilator+ 30 01/27/25 11:53 69 30 01/27/25 11:15 71 14 94/49 (64) 100 01/27/25 11:00 73 14 89/46 (60) 100 01/27/25 10:45 76 14 91/49 (63) 100 01/27/25 10:30 80 19 148/70 (96) 100 01/27/25 10:15 79 17 139/66 (90) 100 01/27/25 10:00 30 01/27/25 10:00 74 17 100 01/27/25 09:45 74 17 100 01/27/25 09:30 74 30 01/27/25 09:30 74 17 100 01/27/25 09:15 74 17 100 01/27/25 09:00 75 15 141/67 (91) 100 01/27/25 08:45 71 15 109/57 (74) 100 01/27/25 08:30 71 15 131/57 (81) 100 01/27/25 08:15 70 15 125/56 (79) 100 01/27/25 08:00 97.9 01/27/25 08:00 71 16 132/60 (84) 100 01/27/25 08:00 100 Ventilator+ 30 LABS: Laboratory: Test 01/27/25 12:40 01/27/25 11:12 01/27/25 05:16 01/26/25 03:16 Range/Units Whole Blood Glucose 186 H 70-110 MG/DL Potassium Level 3.2 L 3.5-5.1 mmol/L Magnesium Level 2.00 1.80-2.40 mg/dL White Blood Count 10.8 4.8-10.8 K/uL Red Blood Count 2.94 L 4.00-5.50 MIL/uL Hemoglobin 8.7 L 12.0-16.0 g/dL Hematocrit 25.6 L 36-48 % Mean Corpuscular Volume 87.1 79-99 fL Mean Corpuscular Hemoglobin 29.6 27.0-33.0 pg Mean Corpuscular Hemoglobin Concent 34.0 32.0-36.0 g/dL Red Cell Distribution Width 17.2 H 11.0-15.5 % Platelet Count 290 130-400 K/uL Mean Platelet Volume 10.7 H 7.5-10.5 fL Immature Granulocyte % (Auto) 1.1 H 0-1 % Neutrophils (%) (Auto) 63.2 40.0-77.0 % Lymphocytes (%) (Auto) 23.9 21.0-51.0 % Monocytes (%) (Auto) 8.2 3.0-13.0 % Eosinophils (%) (Auto) 2.6 0.0-8.0 % Basophils (%) (Auto) 1.0 0.0-5.0 % Neutrophils # (Auto) 6.8 1.8-7.7 K/uL Lymphocytes # (Auto) 2.6 1.0-4.8 K/uL Monocytes # (Auto) 0.9 0.1-1.0 K/uL Eosinophils # (Auto) 0.28 0.00-0.70 K/uL Basophils # (Auto) 0.11 0.00-0.20 K/uL Absolute Immature Granulocyte (auto 0.12 0-1 K/uL Nucleated Red Blood Cells 0.6 H 0.0-0.19 % Sodium Level 146 H 136-145 mmol/L Chloride Level 112 H 101-111 mmol/L Carbon Dioxide Level 18 L 21-32 mmol/L Blood Urea Nitrogen 33 H 7-18 mg/dL Creatinine 2.5 H 0.5-1.0 mg/dL Glomerular Filtration Rate Calc 20 >90 mL/min Random Glucose 178 H 70-105 mg/dL Total Calcium 7.3 L 8.5-10.1 mg/dL Phosphorus Level 3.1 2.5-4.9 mg/dL Total Bilirubin 0.4 0.2-1.0 mg/dL Aspartate Amino Transf (AST/SGOT) 17 10-37 U/L Alanine Aminotransferase (ALT/SGPT) 7 L 12-78 U/L Alkaline Phosphatase 148 H 50-136 U/L C-Reactive Protein, Quantitative 223.10 H 0.5-3.0 mg/L Total Protein 4.5 L 6.0-8.3 g/dL Albumin 1.0 L 3.5-5.0 g/dL Blood Gas Specimen Type Arterial Arterial Blood pH 7.442 7.350-7.450 Arterial Blood Partial Pressure CO2 27 L 32-45 mmHg Arterial Blood Partial Pressure O2 120.3 H 83.0-108.0 mmHg Arterial Blood HCO3 17.9 L 21.0-28.0 mmol/L Arterial Blood Oxygen Saturation 98.2 H 94.0-98.0 % Arterial Blood Base Excess -5.2 L -2.0-3.0 mmol/L Hemoglobin (Blood Gas) 9.9 L 12.0-16.0 g/dL Sodium (Blood Gas) 139 136-145 MMOL/L Bedside Potassium (Blood Gas) 2.8 *L 3.4-4.5 MMOL/L Bedside Chloride (Blood Gas) 113 H 98-107 MMOL/L Bedside Glucose (Blood Gas) 129 H 65-95 MG/DL Bedside Ionized Calcium (Blood Gas) 1.15 1.15-1.33 MMOL/L Bedside Lactic Acid (Blood Gas) 1.79 H 0.36-0.75 MMOL/L Blood Gas Temperature 37.0 35.5-37.0 CELSIUS Blood Gas Respiration Rate 14.0 min. Blood Gas Vent Mode LR ROOM AIR FiO2 30.0 % Blood Gas Tidal Volume 400 ml Blood Gas PEEP 5 cm H2O Blood Gas Specimen Comment AC Test 01/25/25 19:06 01/25/25 16:19 Range/Units Influenza Type A Antigen Negative For Type A NEGATIVE Influenza Type B Antigen Negative For Type B NEGATIVE SARS-CoV-2 Antigen (Rapid) PRESUMPTIVE NEGATIVE NEGATIVE Vancomycin Level Trough 15.5 10.0-20.0 UG/ML Current Medications Medications (Trade) Dose Ordered Sig/Arik Route PRN Reason Start Time Stop Time Status Last Admin Dose Admin Albumin Human 50 ml @ 0 mls/hr Q8H6 IV 01/24/25 14:00 01/24/25 22:00 DC 01/24/25 20:45 1,200 MLS/HR Artificial Tears (Artificial Tears) 1 DROP OR AD Q8H OU 01/23/25 19:30 02/22/25 19:29 01/27/25 08:50 1 DROP Bumetanide (Bumex 1mg Vial) 1 mg ONCE PRN IVP AFTER TRANSFUSION 01/24/25 08:00 01/24/25 09:23 DC Bumetanide (Bumex 1mg Vial) 2 mg ONCE PRN IVP AFTER TRANSFUSION 01/24/25 14:00 01/24/25 14:00 DC 01/24/25 13:28 2 MG Cefepime HCl (MAXipime 2 gm vial) 2 gm Q24H IVPB 01/23/25 12:00 01/26/25 12:05 DC 01/26/25 11:38 2 GM Ceftriaxone Sodium (ROCEphine 1G INJ) 1 gm Q24H IVPB 01/22/25 12:00 01/22/25 16:25 DC 01/22/25 14:18 1 GM Chlorhexidine Gluconate (Peridex) 15 ml TID MM 01/23/25 21:00 02/06/25 20:59 01/27/25 14:35 15 ML Dexmedetomidine/ Sodium Chloride (PRECEdex 400MCG/ 100ML-NS) 400 mcg PROTOCOL IV 01/27/25 15:30 02/26/25 15:29 Dextrose (D50w) 50 ml AD PRN IV HYPOGLYCEMIA PROTOCOL 01/22/25 15:30 02/21/25 15:29 Fentanyl Citrate 100 ml @ 2.5 mls/hr PROTOCOL IV 01/22/25 12:00 01/22/25 11:55 DC Fentanyl Citrate 100 ml @ 2.5 mls/hr PROTOCOL IV 01/22/25 12:00 01/27/25 15:35 DC 01/27/25 05:34 2.5 MLS/HR Glucagon (Glucagon 1mg Kit) 1 mg AD PRN IM HYPOGLYCEMIA PROTOCOL 01/22/25 15:30 02/21/25 15:29 Heparin Sodium (Porcine) (HEParin 5,000 UNIT VIAL) *calculation based on ACTUAL B... AD PRN IV HEPARIN PROTOCOL 01/27/25 16:30 02/26/25 16:29 Heparin Sodium/ Dextrose 250 ml @ 0 mls/hr Q6H IV 01/27/25 16:30 02/26/25 16:29 Insulin Human Regular (humuLIN R 100 UNIT/ML 3ML) INSULIN SLIDING SCAL... ACHS SQ 01/22/25 21:00 01/25/25 20:51 DC 01/25/25 16:29 3 UNIT Insulin Human Regular (humuLIN R 100 UNIT/ML 3ML) INSULIN SLIDING SCAL... Q6H6 SQ 01/26/25 10:00 02/25/25 09:59 Leptospermum Honey (Medihoney) 1 APPLICATION DAILY TP 01/26/25 09:00 02/25/25 08:59 01/27/25 08:50 1 APPL Levetiracetam (kepPRA 500 MG TABLET) 500 mg BID PO 01/22/25 21:00 01/22/25 22:13 DC Levetiracetam 500 mg/Sodium Chloride 100 ml @ 400 mls/hr Q12H9 IV 01/22/25 22:00 02/21/25 21:59 01/27/25 08:47 400 MLS/HR Levothyroxine Sodium (SYNTHroid VIAL 100MCG) 100 mcg SYN IV 01/23/25 06:30 02/22/25 06:29 01/27/25 06:09 100 MCG Linezolid 300 ml @ 150 mls/hr Q12H IV 01/24/25 08:00 02/03/25 07:59 01/27/25 08:46 150 MLS/HR Magnesium Sulfate 50 ml @ 0 mls/hr PROTOCOL PRN IV Hypomagnesemia 01/22/25 15:30 02/21/25 15:29 01/27/25 02:59 25 MLS/HR Metronidazole/ Sodium Chloride 100 ml @ 100 mls/hr Q8H6 IVPB 01/22/25 22:00 01/26/25 12:05 DC 01/26/25 06:13 100 MLS/HR Midazolam HCl 50 ml @ 0 mls/hr PROTOCOL IV 01/22/25 12:00 01/27/25 15:35 DC 01/27/25 09:10 5 MLS/HR Norepinephrine 250 ml @ 0 mls/hr PROTOCOL IV 01/22/25 10:00 01/23/25 09:52 DC 01/22/25 14:24 60 MLS/HR Norepinephrine Bitartrate (Norepineph 16 Mg/250ml NS Premix) per protocol PROTOCOL IV 01/23/25 10:00 02/22/25 09:59 01/27/25 00:30 16 MG Octreotide Acetate 1250 mcg/ Sodium Chloride 250 ml @ 0 mls/hr PROTOCOL IV 01/22/25 12:30 01/22/25 12:17 DC Octreotide Acetate 1250 mcg/ Sodium Chloride 250 ml @ 0 mls/hr PROTOCOL IV 01/22/25 12:30 01/24/25 09:23 DC 01/22/25 12:41 5 MLS/HR Pantoprazole Sodium (PROTonix 40MG INJ) 40 mg BID IVP 01/24/25 21:00 01/24/25 15:02 DC Pantoprazole Sodium 80 mg/ Sodium Chloride 100 ml @ 10 mls/hr Q10H IV 01/22/25 09:00 01/24/25 09:23 DC 01/24/25 09:17 10 MLS/HR Pantoprazole Sodium 80 mg/ Sodium Chloride 100 ml @ 10 mls/hr Q10H IV 01/24/25 15:00 02/23/25 14:59 01/27/25 14:35 10 MLS/HR Pharmacy Profile Note (Pharmacy Communication) 1 each ONCE MISC 01/22/25 12:00 01/22/25 11:53 DC Pharmacy Profile Note (Pharmacy Communication) 1 each ONCE MISC 01/22/25 12:00 01/22/25 11:53 DC Pharmacy Profile Note (Pharmacy Communication) 1 each ONCE MISC 01/23/25 13:00 01/23/25 13:09 DC Pharmacy Profile Note (Pharmacy Communication) 1 each ONCE [facility] [place] 01/24/25 08:00 01/24/25 07:51 DC Phenylephrine HCl 100 mg/Sodium Chloride 250 ml @ 0 mls/hr AD PRN IV TITRATE 01/22/25 17:00 02/21/25 16:59 01/23/25 09:30 0 MLS/HR Piperacillin Sod/ Tazobactam Sod (Zosyn 3.375gm+NS 50ml) 3.375 gm Q8H IV 01/26/25 12:30 02/05/25 12:29 01/27/25 12:44 3.375 GM Potassium Chloride 100 ml @ 50 mls/hr AD PRN IV POTASSIUM PROTOCOL 01/22/25 15:30 01/24/25 07:50 DC Potassium Chloride 100 ml @ 100 mls/hr AD PRN IV POTASSIUM PROTOCOL 01/22/25 15:30 02/21/25 15:29 01/27/25 12:44 100 MLS/HR Potassium Chloride (K-Dur/Klor-Con 20meq) 20 meq AD PRN PO POTASSIUM PROTOCOL 01/22/25 15:30 02/21/25 15:29 01/26/25 06:19 20 MEQ Potassium Chloride (KCl 10% Elixir 20meq/15ml) 20 meq AD PRN PO POTASSIUM PROTOCOL 01/22/25 15:30 02/21/25 15:29 Propofol (DIPRivan 1000MG/ 100ML) 1,000 mg PROTOCOL PRN IV SEDATION 01/22/25 12:00 01/22/25 11:55 DC Sodium Bicarbonate (Sodium Bicarbonate) 650 mg BID PO 01/24/25 21:00 02/23/25 20:59 01/27/25 08:47 650 MG Sodium Chloride 1,000 ml @ 150 mls/hr Q6H40M IV 01/22/25 12:00 01/23/25 10:56 DC 01/23/25 02:45 150 MLS/HR Sucralfate (Carafate) 1 gm BID PO 01/23/25 21:00 01/23/25 11:41 DC Sucralfate (Carafate) 1 gm QID PO 01/24/25 17:00 02/23/25 16:59 01/27/25 14:40 1 GM Sucralfate (Carafate) 1 gm TID PO 01/23/25 14:00 01/24/25 15:02 DC 01/24/25 13:28 1 GM Thiamine HCl 100 mg/Sodium Chloride 50 ml @ 100 mls/hr Q24H IV 01/23/25 14:00 01/25/25 14:29 DC 01/25/25 13:53 100 MLS/HR Vancomycin HCl (Vancomycin 750mg) 750 mg Q24H IVPB 01/23/25 17:00 01/23/25 10:56 DC Vancomycin HCl (Vancomycin Protocol) 1 each AD IV 01/22/25 15:00 01/23/25 10:56 DC Vasopressin 40 units/Sodium Chloride 40 ml @ 0 mls/hr PROTOCOL IV 01/25/25 09:30 02/24/25 09:29 Wound Care/ Dressing Products (Venelex Ointment) BID TP 01/25/25 21:00 01/25/25 15:58 DC DIAGNOSTICS / RADIOLOGY: [place] [address] IMAGING REPORT Signed PATIENT: JUSTIN KLINE MR#: [id number] : 1955 SEX: F AGE: 70 LOCATION: 2CH ORDER 2300 STATUS: ADM IN REPORT#: [id number] SERVICE 0600 REASON: vented pt ORDERING PHYSICIAN: KARL RORDIGUEZ PROCEDURE: CXR1VW - CHEST 1VW EXAM: XR Chest, 3 Views. CLINICAL HISTORY: 70-year-old female ventilated patient. COMPARISON: Prior exam from 01/25/2025 at 3:39 PM. FINDINGS: LUNGS: Minimal pulmonary congestion, new compared to the prior exam. PLEURAL SPACES: No pleural effusion or pneumothorax. HEART: Moderate cardiomegaly, somewhat more pronounced compared to the prior exam. BONES: No acute osseous abnormality. VASCULATURE: Atherosclerotic aorta. LINES AND TUBES: Endotracheal tube tip at the arminda. Recommendation for withdrawal of 1 to 2 cm. IMPRESSION: 1. Endotracheal tube tip at the arminda. Recommend withdrawal of 1 to 2 cm. 2. Moderate cardiomegaly, somewhat more pronounced compared to the prior exam. 3. Atherosclerotic aorta. 4. Minimal pulmonary congestion, new compared to the prior XR chest from 01/25/2025 at 3:39 PM. /[facility] DICTATED BY: TOM SANCHEZ MD DATE: 01/26/252120 ELECTRONICALLY SIGNED BY: TOM SANCHEZ MD DATE: 01/26/252120 ASSESSMENT: Hematemesis POA Hemorrhagic shock Acute hypoxic respiratory failure status post intubation for airway protection Peg tube placement Peptic ulcer disease DVT of bilateral upper limbs Starvation ketoacidosis Hypokalemia Unstageable wound on sacrum Fecal impaction Obesity BMI 36.6 fecal impaction Knee injury versus underlying CKD Diabetes mellitus type 2 with associated hyperglycemia Severe hypoalbuminemia Hypertension Debility Small pericardial Effusion Left-sided pleural effusion PLAN: Hematemesis, peptic ulcer disease, POA - patient to be admitted to ICU -in reference to hematemesis. We will check H&H q.4 hours. Patient to have type and screen. If hemoglobin is less than seven. Patient will be receiving blood transfusion. - The patient will continue on Protonix drip and octreotide drip. - EGD done by Gastroenterology and have reported no active bleeding and clots in esophagus. - On 01/25/2025 her hemoglobin is 5.9, we gave 1 PRBC. Repeat Hb is 7.4. -GI wanted to do another EGD and colonoscopy showed no evidence of bleeding. -Bleeding scan showed no evidence of gastrointestinal hemorrhage. -gastroenterology recommended follow with them in 1 week after discharge. - Today her hemoglobin is 8.7 Acute hypoxic respiratory failure status post intubation for airway protection - critical care is on board and we will follow critical care recommendations regarding ventilator and sedation protocol - currently on ACVC, TV 400, RR 18, Fio2 50%, PEEP 5. -Nurse told us that she will try to wake up the patient, extubate her and try spontaneous breathing trial. Hemorrhagic shock - patient currently on phenylephrine drip - weaned off Levophed - continuing midazolam, fentanyl currently. - we will follow critical Care recommendations in managing hemorrhagic shock DVT of bilateral upper limbs -US doppler of both upper limbs, results showed evidence of DVT. -Consulted gastroenterology for anticoagulation recommendations. They recommended to give high dose Protonix drip for 48 hours and carafate 1gm PO QID and after 48 hours start heparin drip. -Patient is not a candidate for SVC filter. Starvation ketoacidosis Her urinalysis showed ketones in the urine. Unstageable wound on sacrum - we will request wound care -Wound care recommended to cleanse with normal saline, pat dry, apply medihoney, cover with allevyn, change daily and prnKeep wounds clean and dry , Offloading/reposition q 2 hours Hypokalemia Today her blood work showed that potassium is 2.9. We replaced the potassium. Repeat potassium levels are 3.2. Will repeat her labs tomorrow. Diabetes mellitus type 2 with associated hyperglycemia, Severe hypoalbuminemia, Hypertension, Debility, Small pericardial Effusion, Left-sided pleural effusion - echo showed no pericardial effusion, LVEF of 50-55% - continue insulin sliding scale - continue thiamine supplementation - Continue patient on cefepime, metronidazole for broad coverage - monitor vitals Q8 - monitor a.m. labs - nephrology was consulted and they have recommended to discontinue vancomycin, obtain urine analysis and complete renal ultrasound. -Repeated urinalysis, urine electrolytes, urine protein today. Urinalysis showed turbid urine, protein >300, ketones 5, moderate occult blood, moderate leukocyte esterase, RBC 6 to 10, WBC is TNTC, protein 410.9, sodium is 43, potassium is 36, chloride is 40. - We also albumin. GI prophylaxis: Pantoprazole ATTESTATION BY PHYSICIAN I have seen and examined the patient. I reviewed the documentation, medical decision making, and treatment plan as noted by the resident provider above. I agree with the findings and plan of care. Jhonatan Bales IV, MD, AKSHAY MD Jan 27, 2025 16:09
[2025-01-28] VITALS (106 sets, daily range): BP systolic 64–166; BP diastolic 34–79; PULSE 70–101; RESP 4–39; TEMP 96.8–97.8; O2SAT 99–100
[2025-01-28 05:41] LABS: NUCLEATED RED BLOOD CELLS 0.5 % (0.0-0.19); PLATELET COUNT (AUTO) 276 K/uL (130-400); RED BLOOD CELL COUNT(AUTO) 2.80 MIL/uL (4.00-5.50); RED CELL DISTRIBUTION WIDTH 18.8 % (11.0-15.5); WHITE BLOOD COUNT (AUTO) 12.9 K/uL (4.8-10.8)
[2025-01-28 05:57] LABS: INR 2.51 (0.85-1.15)
[2025-01-28 06:06] LABS: ASPARTATE AMINOTRANSFERASE 16.0 U/L (10-37); CREATININE 2.5 mg/dL (0.5-1.0); GLOMERULAR FILTR. RATE CALC 20.0 mL/min (>90); GLUCOSE,RANDOM 236.0 mg/dL (70-105); SODIUM SERUM 143.0 mmol/L (136-145); TOTAL PROTEIN, SERUM 4.4 g/dL (6.0-8.3); UREA NITROGEN, BLOOD 33.0 mg/dL (7-18)
[2025-01-28 09:09] LABS: ABG BASE EXCESS -7.8 mmol/L (-2.0-3.0); ABG HCO3 16.0 mmol/L (21.0-28.0); ABG OXYGEN SATURATION 98.3 % (94.0-98.0); ABG PCO2 29 mmHg (32-45); ABG PH 7.363 (7.350-7.450); DEVICE COMMENT LR SYLVIA, RN; PO2, ARTERIAL BG 120.6 mmHg (83.0-108.0); TEMPERATURE, CELSIUS BG 37.0 CELSIUS (35.5-37.0); VENT MODE, BG AC (ROOM AIR)
[2025-01-28] MEDS: SODIUM BICARB 50MEQ 50ML VIAL IV ONE (09:25)
--- NOTE | 2025-01-28 10:17 | PN ---
[facility] PROGRESS NOTE Date of Service: Jan 28, 2025 Time of Service: 10:11 SUBJECTIVE: 70-year-old female with past medical history of diabetes mellitus type 2, hypertension, anemia, history of CVA, history of right below-knee amputation who presented to the hospital secondary to hematemesis. Patient is currently intubated and sedated. The patient's history is mostly obtained from patient's who is present at bedside and from ED provider. The patient was noted to have black colored vomit at home which started yesterday. She has a history of peptic ulcer disease. She also has a PEG tube placed around two weeks ago. Peg tube was placed in [facility] [place]. Per patient is able to swallow better now. denied any fever, chills, shortness for breath, chest pain. History is fairly limited at this time as patient is not able to participate in conversation. Labs were Notable for white count of 9.1, hemoglobin was 9.1, MCV was 86.7, platelet count was 456 K, sodium was 138, potassium was 3.1, bicarb was , creatinine was 1.7, glucose was 234, alk-phos was 153, total protein was 5.0, albumin was 0.9, lipase was negative normal Underwent a CT abdomen pelvis which showed no acute process in the CT abdomen without IV contrast. Patient was noted to have cystic structure in the right adrenal region measuring 5.9 x 3.9 cm. The patient also had fecal impaction noted. In the ED patient had episode of hematemesis and she was intubated for airway protection by ED provider. 01/23/2025: The patient is examined at the bedside. She was sedated and not responsive during my visit. GI performed EGD in the morning and they have observed no active bleeding. Nurse notified an unstageable wound on sacrum for which Wound consult is placed today. We will be manage as per critical Care recommendations. 01/24/2025: The patient is examined at the bedside. She was sedated and not responsive during my visit. Her arms are swollen. Her vitals are normal except for blood pressure is 97/51. Her labs are in the normal range except for Hb is 6.6, chloride is 113, BUN is 39, creatinine is 2.4, iron is 28, TIBC is 44, % saturation is 63.6, TSH is 7.62. Her urine culture grew 10,000-50,000 CFU. Identification and susceptibility are in process. Blood culture show no growth after 48 hours. Renal ultrasound show renal parenchymal disease. As her hemoglobin is low she received a blood transfusion. After the transfusion her hemoglobin is 7.1. We ordered a bilateral upper limb doppler which showed evidence of DVT. Gastroenterology was consulted to give recommendations on starting anticoagulation. GI recommended high dose Protonix drip for 48 hours and carafate 1gm PO QID, after 48 hours start heparin drip. IR was called to ask about the option of placing an SVC filter, and they recommended mechanical thrombectomy. The patient is not a good candidate for an SVC filter. A urinalysis, urine electrolytes, urine protein were ordered today. Urinalysis showed turbid urine, protein >300, ketones 5, moderate occult blood, moderate leukocyte esterase, RBC 6 to 10, WBC is TNTC, protein 410.9, sodium is 43, potassium is 36, chloride is 40. 01/25/2025: The patient is examined at the bedside. She was sedated and not responsive during my visit. Her arms are swollen. Her vitals are normal. Her labs are in the normal range except for Hb is 5.9, WBC is 11.2, Cl is 112, potassium is 3.2, CO2 is 19, BUN is 40 creatinine is 2.6. As her hemoglobin is low we gave a t ransfusion and the repeat Hb is 7.4. Gastroenterology will do EGD and colonoscopy tomorrow morning. Hematology is consulted and they recommended same management. Wound care recommended to cleanse with normal saline, pat dry, apply medihoney, cover with allevyn, change daily and prnKeep wounds clean and dry , Offloading/reposition q 2 hours. Bleeding scan showed no evidence of gastrointestinal hemorrhage. 01/26/2025: The patient is examined at the bedside. She was sedated and not responsive during my visit. Her arms are swollen. Her vitals are normal except for blood pressure which is 96/45. Her labs are in the normal range except for Hb is 8.7, K is 2.8, Cl is 112, CO2 is 19, BUN is 37, creatinine is 2.5, Albumin is 1.1. She is scheduled for an EGD and colonoscopy today. We replaced the potassium and the repeat potassium levels are 2.8 and 3.1. 01/27/2025: Patient is examined at the bedside. She was sedated and not responsive during my visit. Her arms are swollen. Her vitals are normal except for blood pressure which is 94/49. Her labs are in the normal range except for hemoglobin is 8.7, potassium is 2.9, chloride is 112, BUN is 33, creatinine is 2.5, albumin is 1, CRP is 223.1. Urine culture showed ESBL which is sensitive to Zosyn, meropenem and levofloxacin. She underwent endoscopy and colonoscopy yesterday which showed no evidence of bleeding. Gastroenterology recommended to follow within 1 week after discharge. Chest x-ray showed minimal pulmonary congestion. The nurse told us that she will try waking up the patient, extubate her and try spontaneous breathing trial. 01/28/2025: Patient is seen and examined at the bedside. She was sedated and not responsive during my visit. Her vital signs are in the normal range except for blood pressure is 97/55. Labs are in the normal range except for hemoglobin is 8.3, WBCs 12.9, potassium is 3.2, chloride is 100, bicarb is 16, BUN is 33, creatinine is 2.5, glucose is 181, ALP is 154. Yesterday the nurse tried to extubate her but she could not extubate as she is not waking up and she can't not protect her airway. She is currently on heparin drip. Critical care stopped her Protonix drip as she is fluid overloaded and they started protonix 40 mg b.i.d. We will continue to follow recommendations from critical Care and Gastroenterology. REVIEW OF SYSTEMS Unable to obtain as patient is sedated PHYSICAL EXAM GENERAL APPEARANCE: He is currently intubated and sedated NEUROLOGICAL: Cranial nerves II-XII grossly intact. Motor is 5/5 in bilateral upper and lower extremities proximal to distal. No sensory deficits. HEENT: Face is symmetric. Pupils are equal and reactive. Extraocular movements are intact. NECK: Supple. No JVD. No thyromegaly. No submental, submandibular, pre- /postauricular, occipital or supraclavicular lymphadenopathy. CHEST: Normal chest expansion. No Telemetry. LUNGS: Absence of any rales, rhonchi or any wheezing. CARDIOVASCULAR: Regular. S1 and S2 normal. No appreciable rubs, murmurs or gallops. ABDOMEN: Soft, nontender, and nondistended. There is no rebound, voluntary guarding, or rigidity. Patient has a PEG tube in place : Deferred. No Kamara. EXTREMITIES: Below-knee amputation of the right lower extremity SKIN: No skin breakdown. Vital Signs (last 8hr) Date Time Temp Pulse Resp B/P (MAP) Pulse Ox O2 Delivery O2 Flow Rate FiO2 01/28/25 09:20 70 30 01/28/25 08:00 100 Ventilator+ 30 01/28/25 08:00 71 14 97/55 (69) 100 01/28/25 07:45 72 16 119/64 (82) 100 01/28/25 07:30 73 16 113/62 (79) 100 01/28/25 07:15 72 16 124/66 (85) 100 01/28/25 07:00 74 16 116/59 (78) 100 01/28/25 06:45 74 15 116/59 (78) 100 01/28/25 06:42 75 30 01/28/25 05:40 76 15 117/57 (77) 100 01/28/25 05:25 77 15 105/56 (72) 100 01/28/25 05:10 78 14 106/56 (73) 100 01/28/25 05:06 80 14 118/57 (77) 100 01/28/25 05:02 86 30 104/79 (87) 100 01/28/25 04:56 75 39 86/48 (61) 100 01/28/25 04:40 78 14 100/54 (69) 100 01/28/25 04:25 78 16 105/52 (69) 100 01/28/25 04:10 80 17 81/47 (58) 100 01/28/25 04:00 30 01/28/25 04:00 100 Ventilator+ 30 01/28/25 04:00 97.0 01/28/25 03:55 82 15 112/55 (74) 100 01/28/25 03:40 83 14 100/52 (68) 100 01/28/25 03:25 84 18 115/58 (77) 100 01/28/25 03:10 86 16 113/60 (77) 100 01/28/25 02:55 87 14 121/63 (82) 100 01/28/25 02:52 88 30 01/28/25 02:40 86 14 113/52 (72) 100 01/28/25 02:25 89 21 127/58 (81) 100 LABS: Laboratory: Test 01/28/25 09:07 01/28/25 06:58 01/28/25 06:18 01/28/25 05:16 Range/Units Blood Gas Specimen Type Arterial Arterial Blood pH 7.363 7.350-7.450 Arterial Blood Partial Pressure CO2 29 L 32-45 mmHg Arterial Blood Partial Pressure O2 120.6 H 83.0-108.0 mmHg Arterial Blood HCO3 16.0 L 21.0-28.0 mmol/L Arterial Blood Oxygen Saturation 98.3 H 94.0-98.0 % Arterial Blood Base Excess -7.8 L -2.0-3.0 mmol/L Blood Gas Temperature 37.0 35.5-37.0 CELSIUS Blood Gas Respiration Rate 14.0 min. Blood Gas Vent Mode AC ROOM AIR FiO2 30.0 % Blood Gas Tidal Volume 400 ml Blood Gas PEEP 5 cm H2O Blood Gas Specimen Comment LR DES, RN Activated Partial Thromboplast Time > 139.0 *H 26.3-35.5 SEC Whole Blood Glucose 181 H 70-110 MG/DL White Blood Count 12.9 H 4.8-10.8 K/uL Red Blood Count 2.80 L 4.00-5.50 MIL/uL Hemoglobin 8.3 L 12.0-16.0 g/dL Hematocrit 24.4 L 36-48 % Mean Corpuscular Volume 87.1 79-99 fL Mean Corpuscular Hemoglobin 29.6 27.0-33.0 pg Mean Corpuscular Hemoglobin Concent 34.0 32.0-36.0 g/dL Red Cell Distribution Width 18.8 H 11.0-15.5 % Platelet Count 276 130-400 K/uL Mean Platelet Volume 11.2 H 7.5-10.5 fL Nucleated Red Blood Cells 0.5 H 0.0-0.19 % Red Blood Cell Morphology See comments Prothrombin Time 24.3 H 9.6-11.6 SEC Prothromb Time International Ratio 2.51 H 0.85-1.15 Sodium Level 143 136-145 mmol/L Potassium Level 3.2 L 3.5-5.1 mmol/L Chloride Level 113 H 101-111 mmol/L Carbon Dioxide Level 16 L 21-32 mmol/L Blood Urea Nitrogen 33 H 7-18 mg/dL Creatinine 2.5 H 0.5-1.0 mg/dL Glomerular Filtration Rate Calc 20 >90 mL/min Random Glucose 236 H 70-105 mg/dL Total Calcium 7.5 L 8.5-10.1 mg/dL Total Bilirubin 0.4 0.2-1.0 mg/dL Aspartate Amino Transf (AST/SGOT) 16 10-37 U/L Alanine Aminotransferase (ALT/SGPT) 6 L 12-78 U/L Alkaline Phosphatase 154 H 50-136 U/L Total Protein 4.4 L 6.0-8.3 g/dL Albumin 0.8 L 3.5-5.0 g/dL Test 01/27/25 11:12 01/27/25 05:16 Range/Units Magnesium Level 2.00 1.80-2.40 mg/dL Immature Granulocyte % (Auto) 1.1 H 0-1 % Neutrophils (%) (Auto) 63.2 40.0-77.0 % Lymphocytes (%) (Auto) 23.9 21.0-51.0 % Monocytes (%) (Auto) 8.2 3.0-13.0 % Eosinophils (%) (Auto) 2.6 0.0-8.0 % Basophils (%) (Auto) 1.0 0.0-5.0 % Neutrophils # (Auto) 6.8 1.8-7.7 K/uL Lymphocytes # (Auto) 2.6 1.0-4.8 K/uL Monocytes # (Auto) 0.9 0.1-1.0 K/uL Eosinophils # (Auto) 0.28 0.00-0.70 K/uL Basophils # (Auto) 0.11 0.00-0.20 K/uL Absolute Immature Granulocyte (auto 0.12 0-1 K/uL Phosphorus Level 3.1 2.5-4.9 mg/dL C-Reactive Protein, Quantitative 223.10 H 0.5-3.0 mg/L Current Medications Medications (Trade) Dose Ordered Sig/Arik Route PRN Reason Start Time Stop Time Status Last Admin Dose Admin Albumin Human 50 ml @ 0 mls/hr Q8H6 IV 01/24/25 14:00 01/24/25 22:00 DC 01/24/25 20:45 1,200 MLS/HR Artificial Tears (Artificial Tears) 1 DROP OR AD Q8H OU 01/23/25 19:30 02/22/25 19:29 01/28/25 04:57 1 DROP Bumetanide (Bumex 1mg Vial) 1 mg ONCE PRN IVP AFTER TRANSFUSION 01/24/25 08:00 01/24/25 09:23 DC Bumetanide (Bumex 1mg Vial) 2 mg ONCE PRN IVP AFTER TRANSFUSION 01/24/25 14:00 01/24/25 14:00 DC 01/24/25 13:28 2 MG Cefepime HCl (MAXipime 2 gm vial) 2 gm Q24H IVPB 01/23/25 12:00 01/26/25 12:05 DC 01/26/25 11:38 2 GM Ceftriaxone Sodium (ROCEphine 1G INJ) 1 gm Q24H IVPB 01/22/25 12:00 01/22/25 16:25 DC 01/22/25 14:18 1 GM Chlorhexidine Gluconate (Peridex) 15 ml TID MM 01/23/25 21:00 02/06/25 20:59 01/28/25 09:16 15 ML Dexmedetomidine/ Sodium Chloride (PRECEdex 400MCG/ 100ML-NS) 400 mcg PROTOCOL IV 01/27/25 15:30 02/26/25 15:29 Dextrose (D50w) 50 ml AD PRN IV HYPOGLYCEMIA PROTOCOL 01/22/25 15:30 02/21/25 15:29 Fentanyl Citrate 100 ml @ 2.5 mls/hr PROTOCOL IV 01/22/25 12:00 01/22/25 11:55 DC Fentanyl Citrate 100 ml @ 2.5 mls/hr PROTOCOL IV 01/22/25 12:00 01/27/25 15:35 DC 01/27/25 05:34 2.5 MLS/HR Glucagon (Glucagon 1mg Kit) 1 mg AD PRN IM HYPOGLYCEMIA PROTOCOL 01/22/25 15:30 02/21/25 15:29 Heparin Sodium (Porcine) (HEParin 5,000 UNIT VIAL) *calculation based on ACTUAL B... AD PRN IV HEPARIN PROTOCOL 01/27/25 16:30 02/26/25 16:29 Heparin Sodium/ Dextrose 250 ml @ 0 mls/hr Q6H IV 01/27/25 16:30 02/26/25 16:29 01/27/25 16:52 14.92 MLS/HR Insulin Human Regular (humuLIN R 100 UNIT/ML 3ML) INSULIN SLIDING SCAL... ACHS SQ 01/22/25 21:00 01/25/25 20:51 DC 01/25/25 16:29 3 UNIT Insulin Human Regular (humuLIN R 100 UNIT/ML 3ML) INSULIN SLIDING SCAL... Q6H6 SQ 01/26/25 10:00 02/25/25 09:59 01/28/25 06:24 2 UNIT Leptospermum Honey (Vontufort totten) 1 APPLICATION DAILY TP 01/26/25 09:00 02/25/25 08:59 01/28/25 09:21 1 APPL Levetiracetam (kepPRA 500 MG TABLET) 500 mg BID PO 01/22/25 21:00 01/22/25 22:13 DC Levetiracetam 500 mg/Sodium Chloride 100 ml @ 400 mls/hr Q12H9 IV 01/22/25 22:00 02/21/25 21:59 01/28/25 09:17 400 MLS/HR Levothyroxine Sodium (SYNTHroid VIAL 100MCG) 100 mcg SYN IV 01/23/25 06:30 02/22/25 06:29 01/28/25 06:09 100 MCG Linezolid 300 ml @ 150 mls/hr Q12H IV 01/24/25 08:00 02/03/25 07:59 01/28/25 09:16 150 MLS/HR Magnesium Sulfate 50 ml @ 0 mls/hr PROTOCOL PRN IV Hypomagnesemia 01/22/25 15:30 02/21/25 15:29 01/27/25 02:59 25 MLS/HR Metronidazole/ Sodium Chloride 100 ml @ 100 mls/hr Q8H6 IVPB 01/22/25 22:00 01/26/25 12:05 DC 01/26/25 06:13 100 MLS/HR Midazolam HCl 50 ml @ 0 mls/hr PROTOCOL IV 01/22/25 12:00 01/27/25 15:35 DC 01/27/25 09:10 5 MLS/HR Norepinephrine 250 ml @ 0 mls/hr PROTOCOL IV 01/22/25 10:00 01/23/25 09:52 DC 01/22/25 14:24 60 MLS/HR Norepinephrine Bitartrate (Norepineph 16 Mg/250ml NS Premix) per protocol PROTOCOL IV 01/23/25 10:00 02/22/25 09:59 01/27/25 00:30 16 MG Octreotide Acetate 1250 mcg/ Sodium Chloride 250 ml @ 0 mls/hr PROTOCOL IV 01/22/25 12:30 01/22/25 12:17 DC Octreotide Acetate 1250 mcg/ Sodium Chloride 250 ml @ 0 mls/hr PROTOCOL IV 01/22/25 12:30 01/24/25 09:23 DC 01/22/25 12:41 5 MLS/HR Pantoprazole Sodium (PROTonix 40MG INJ) 40 mg BID IVP 01/24/25 21:00 01/24/25 15:02 DC Pantoprazole Sodium 80 mg/ Sodium Chloride 100 ml @ 10 mls/hr Q10H IV 01/22/25 09:00 01/24/25 09:23 DC 01/24/25 09:17 10 MLS/HR Pantoprazole Sodium 80 mg/ Sodium Chloride 100 ml @ 10 mls/hr Q10H IV 01/24/25 15:00 02/23/25 14:59 01/28/25 00:06 10 MLS/HR Pharmacy Profile Note (Pharmacy Communication) 1 each ONCE MISC 01/22/25 12:00 01/22/25 11:53 DC Pharmacy Profile Note (Pharmacy Communication) 1 each ONCE MISC 01/22/25 12:00 01/22/25 11:53 DC Pharmacy Profile Note (Pharmacy Communication) 1 each ONCE MISC 01/23/25 13:00 01/23/25 13:09 DC Pharmacy Profile Note (Pharmacy Communication) 1 each ONCE MISC 01/24/25 08:00 01/24/25 07:51 DC Phenylephrine HCl 100 mg/Sodium Chloride 250 ml @ 0 mls/hr AD PRN IV TITRATE 01/22/25 17:00 02/21/25 16:59 01/23/25 09:30 0 MLS/HR Piperacillin Sod/ Tazobactam Sod (Zosyn 3.375gm+NS 50ml) 3.375 gm Q8H IV 01/26/25 12:30 02/05/25 12:29 01/28/25 04:56 3.375 GM Potassium Chloride 100 ml @ 50 mls/hr AD PRN IV POTASSIUM PROTOCOL 01/22/25 15:30 01/24/25 07:50 DC Potassium Chloride 100 ml @ 100 mls/hr AD PRN IV POTASSIUM PROTOCOL 01/22/25 15:30 02/21/25 15:29 01/27/25 12:44 100 MLS/HR Potassium Chloride (K-Dur/Klor-Con 20meq) 20 meq AD PRN PO POTASSIUM PROTOCOL 01/22/25 15:30 02/21/25 15:29 01/26/25 06:19 20 MEQ Potassium Chloride (KCl 10% Elixir 20meq/15ml) 20 meq AD PRN PO POTASSIUM PROTOCOL 01/22/25 15:30 02/21/25 15:29 Propofol (DIPRivan 1000MG/ 100ML) 1,000 mg PROTOCOL PRN IV SEDATION 01/22/25 12:00 01/22/25 11:55 DC Sodium Bicarbonate (Sodium Bicarbonate) 650 mg BID PO 01/24/25 21:00 02/23/25 20:59 01/28/25 09:17 650 MG Sodium Chloride 1,000 ml @ 150 mls/hr Q6H40M IV 01/22/25 12:00 01/23/25 10:56 DC 01/23/25 02:45 150 MLS/HR Sucralfate (Carafate) 1 gm BID PO 01/23/25 21:00 01/23/25 11:41 DC Sucralfate (Carafate) 1 gm QID PO 01/24/25 17:00 02/23/25 16:59 01/28/25 09:17 1 GM Sucralfate (Carafate) 1 gm TID PO 01/23/25 14:00 01/24/25 15:02 DC 01/24/25 13:28 1 GM Thiamine HCl 100 mg/Sodium Chloride 50 ml @ 100 mls/hr Q24H IV 01/23/25 14:00 01/25/25 14:29 DC 01/25/25 13:53 100 MLS/HR Vancomycin HCl (Vancomycin 750mg) 750 mg Q24H IVPB 01/23/25 17:00 01/23/25 10:56 DC Vancomycin HCl (Vancomycin Protocol) 1 each AD IV 01/22/25 15:00 01/23/25 10:56 DC Vasopressin 40 units/Sodium Chloride 40 ml @ 0 mls/hr PROTOCOL IV 01/25/25 09:30 02/24/25 09:29 Wound Care/ Dressing Products (Venelex Ointment) BID TP 01/25/25 21:00 01/25/25 15:58 DC DIAGNOSTICS / RADIOLOGY: [address] [place] [id number] IMAGING REPORT Signed PATIENT: JUSTIN KLINE MR#: [id number] : 1955 SEX: F AGE: 70 LOCATION: 2CH ORDER 230 STATUS: ADM IN REPORT#: [id number] SERVICE [id number] REASON: vented pt ORDERING PHYSICIAN: KARL RODRIGUEZ PROCEDURE: CXR1VW - CHEST 1VW EXAM: XR Chest, 3 Views. CLINICAL HISTORY: 70-year-old female ventilated patient. COMPARISON: Prior exam from 01/25/2025 at 3:39 PM. FINDINGS: LUNGS: Minimal pulmonary congestion, new compared to the prior exam. PLEURAL SPACES: No pleural effusion or pneumothorax. HEART: Moderate cardiomegaly, somewhat more pronounced compared to the prior exam. BONES: No acute osseous abnormality. VASCULATURE: Atherosclerotic aorta. LINES AND TUBES: Endotracheal tube tip at the arminda. Recommendation for withdrawal of 1 to 2 cm. IMPRESSION: 1. Endotracheal tube tip at the arminda. Recommend withdrawal of 1 to 2 cm. 2. Moderate cardiomegaly, somewhat more pronounced compared to the prior exam. 3. Atherosclerotic aorta. 4. Minimal pulmonary congestion, new compared to the prior XR chest from 01/25/2025 at 3:39 PM. /[place] DICTATED BY: TOM SANCHEZ MD DATE: 01/26/252120 ELECTRONICALLY SIGNED BY: TOM SANCHEZ MD DATE: 01/26/252120 ASSESSMENT: Hematemesis POA Hemorrhagic shock Acute hypoxic respiratory failure status post intubation for airway protection Peg tube placement Peptic ulcer disease DVT of bilateral upper limbs Starvation ketoacidosis Hypokalemia Unstageable wound on sacrum Fecal impaction Obesity BMI 36.6 fecal impaction Knee injury versus underlying CKD Diabetes mellitus type 2 with associated hyperglycemia Severe hypoalbuminemia Hypertension Debility Small pericardial Effusion Left-sided pleural effusion PLAN: Hematemesis, peptic ulcer disease, POA - patient to be admitted to ICU -in reference to hematemesis. We will check H&H q.4 hours. Patient to have type and screen. If hemoglobin is less than seven. Patient will be receiving blood transfusion. - The patient will continue on Protonix drip and octreotide drip. - EGD done by Gastroenterology and have reported no active bleeding and clots in esophagus. - On 01/25/2025 her hemoglobin is 5.9, we gave 1 PRBC. Repeat Hb is 7.4. -GI wanted to do another EGD and colonoscopy showed no evidence of bleeding. -Bleeding scan showed no evidence of gastrointestinal hemorrhage. -gastroenterology recommended follow with them in 1 week after discharge. - Today her hemoglobin is 8.3 -Critical care stopped her Protonix drip as she is fluid overloaded and they started protonix 40 mg b.i.d. -We will continue to follow recommendations from critical Care and Gastroenterology. Acute hypoxic respiratory failure status post intubation for airway protection - critical care is on board and we will follow critical care recommendations regarding ventilator and sedation protocol - currently on ACVC, TV 400, RR 18, Fio2 50%, PEEP 5. -Nurse told us that she will try to wake up the patient, extubate her and try spontaneous breathing trial. -Yesterday the nurse tried to extubate her but she could not extubate as she is not waking up and she can't not protect her airway. Hemorrhagic shock - patient currently on phenylephrine drip - weaned off Levophed - continuing midazolam, fentanyl currently. - we will follow critical Care recommendations in managing hemorrhagic shock DVT of bilateral upper limbs -US doppler of both upper limbs, results showed evidence of DVT. -Consulted gastroenterology for anticoagulation recommendations. They recommended to give high dose Protonix drip for 48 hours and carafate 1gm PO QID and after 48 hours start heparin drip. -Patient is not a candidate for SVC filter. -She is currently on heparin drip. Starvation ketoacidosis Today her blood work show that sodium is 143, potassium is 3.2, chloride is 113, bicarbonate is 16. Anion gap is 14. Her urinalysis showed ketones in the urine. Unstageable wound on sacrum - we will request wound care -Wound care recommended to cleanse with normal saline, pat dry, apply medihoney, cover with allevyn, change daily and prnKeep wounds clean and dry , Offloading/reposition q 2 hours Hypokalemia Today her blood work showed that potassium is 3.2. We replaced the potassium. Will repeat her labs tomorrow. Diabetes mellitus type 2 with associated hyperglycemia, Severe hypoalbuminemia, Hypertension, Debility, Small pericardial Effusion, Left-sided pleural effusion - echo showed no pericardial effusion, LVEF of 50-55% - continue insulin sliding scale - continue thiamine supplementation - Continue patient on cefepime, metronidazole for broad coverage - monitor vitals Q8 - monitor a.m. labs - nephrology was consulted and they have recommended to discontinue vancomycin, obtain urine analysis and complete renal ultrasound. -Repeated urinalysis, urine electrolytes, urine protein on 01/24/2025. Urinalysis showed turbid urine, protein >300, ketones 5, moderate occult blood, moderate leukocyte esterase, RBC 6 to 10, WBC is TNTC, protein 410.9, sodium is 43, potassium is 36, chloride is 40. - We also albumin. GI prophylaxis: Pantoprazole ATTESTATION BY PHYSICIAN I have seen and examined the patient. I reviewed the documentation, medical decision making, and treatment plan as noted by the resident provider above. I agree with the findings and plan of care. Saul Bales IV, MD, AKSHAY MD Jan 28, 2025 10:16
--- NOTE | 2025-01-28 11:12 | HMCIMG ---
CHEST 1VW REASON: pp COMPARISON: Prior study from 01/26/2025 is available. FINDINGS: Single view of the chest was obtained. Lungs are clear. There is groundglass appearance suggesting of left-sided pleural effusion. Heart size is normal. There is uncoiling atherosclerotic change of thoracic aorta. There is no pulmonary vascular congestion. The endotracheal tube is in satisfactory position. Mediastinum and bony thorax appear unremarkable. IMPRESSION: 1. No evidence of airspace consolidation or pulmonary venous congestion 2. There is suggestion of a left-sided [id number] pleural effusion 3. Endotracheal tube in satisfactory position..
--- NOTE | 2025-01-28 12:38 | PN ---
[facility] PROGRESS NOTE Date Patient Seen: Jan 28, 2025 Time of Visit: 12:35 Supervising Physician: Dr Marshall Rick Primary Care Physician: NANDO HUYNH Outpatient Specialists: [ ] Inpatient Consults: DR RAMOS, DR HEAD, DR SIMENTAL Assessment: Sepsis, with severe septic shock Acute complicated cystitis - ESBL to urine Acute hypoxemic respiratory failure (intubated) Deep vein thrombosis in the right subclavian and axillary veins and Right basilic vein thrombosis. UGIB with hematemesis Acute on chronic anemia 2nd to above Type II diabetes mellitus with hyperglycemia Dysphagia with G-tube Acute on chronic kidney disease INTERVAL HISTORY: Patient seen and examined, all labs and imaging have been reviewed Patient remains intubated, were weaning patient from her sedation, then we will start spontaneous breathing trials ABG revealed a metabolic acidosis, patient was given bicarb, pending repeat Discussion with family members at bedside. Patient remains on low-dose levo Heparin drip Chest x-ray greatly improved No longer on a Protonix drip, now Protonix 40 b.i.d. Afebrile Plan: Vent management, ABG, chest x-ray , spontaneous breathing trials Following hemoglobin and transfusing as needed Following GI recs Following cultures, antibiotics Heparin drip for DVTs Total critical care time 52 minutes, patient remains critically ill, continues on pressor support aa long of with vent management. REVIEW OF SYSTEMS: Unable to obtain due to patient's intubated PHYSICAL EXAM: GENERAL: Critically ill intubated and sedated. HEENT: Sclera non icteric, dry mucosa NECK: Supple, no JVD, trachea midline LUNGS: Clear breath sounds bilaterally. No wheezes HEART: Regular rate and rhythm. Normal S1 and S2, without murmurs ABD: Abdomen soft, nontender. Bowel sounds present EXT: No clubbing cyanosis or edema, history of right BKA NEURO: Intubated and sedated Vital Signs (last 8hr) Date Time Temp Pulse Resp B/P (MAP) Pulse Ox O2 Delivery O2 Flow Rate FiO2 01/28/25 09:55 30 01/28/25 09:20 70 30 01/28/25 08:00 97.5 01/28/25 08:00 100 Ventilator+ 30 01/28/25 08:00 71 14 97/55 (69) 100 01/28/25 07:45 72 16 119/64 (82) 100 01/28/25 07:30 73 16 113/62 (79) 100 01/28/25 07:15 72 16 124/66 (85) 100 01/28/25 07:00 74 16 116/59 (78) 100 01/28/25 06:45 74 15 116/59 (78) 100 01/28/25 06:42 75 30 01/28/25 05:40 76 15 117/57 (77) 100 01/28/25 05:25 77 15 105/56 (72) 100 01/28/25 05:10 78 14 106/56 (73) 100 01/28/25 05:06 80 14 118/57 (77) 100 01/28/25 05:02 86 30 104/79 (87) 100 01/28/25 04:56 75 39 86/48 (61) 100 01/28/25 04:40 78 14 100/54 (69) 100 LABS: Hematology Labs: Test 01/28/25 05:16 01/27/25 05:16 Range/Units White Blood Count 12.9 H 4.8-10.8 K/uL Red Blood Count 2.80 L 4.00-5.50 MIL/uL Hemoglobin 8.3 L 12.0-16.0 g/dL Hematocrit 24.4 L 36-48 % Mean Corpuscular Volume 87.1 79-99 fL Mean Corpuscular Hemoglobin 29.6 27.0-33.0 pg Mean Corpuscular Hemoglobin Concent 34.0 32.0-36.0 g/dL Red Cell Distribution Width 18.8 H 11.0-15.5 % Platelet Count 276 130-400 K/uL Mean Platelet Volume 11.2 H 7.5-10.5 fL Nucleated Red Blood Cells 0.5 H 0.0-0.19 % Red Blood Cell Morphology See comments Immature Granulocyte % (Auto) 1.1 H 0-1 % Neutrophils (%) (Auto) 63.2 40.0-77.0 % Lymphocytes (%) (Auto) 23.9 21.0-51.0 % Monocytes (%) (Auto) 8.2 3.0-13.0 % Eosinophils (%) (Auto) 2.6 0.0-8.0 % Basophils (%) (Auto) 1.0 0.0-5.0 % Neutrophils # (Auto) 6.8 1.8-7.7 K/uL Lymphocytes # (Auto) 2.6 1.0-4.8 K/uL Monocytes # (Auto) 0.9 0.1-1.0 K/uL Eosinophils # (Auto) 0.28 0.00-0.70 K/uL Basophils # (Auto) 0.11 0.00-0.20 K/uL Absolute Immature Granulocyte (auto 0.12 0-1 K/uL Chemistry Labs: Test 01/28/25 06:18 01/28/25 05:16 01/27/25 11:12 01/27/25 05:16 Range/Units Whole Blood Glucose 181 H 70-110 MG/DL Sodium Level 143 136-145 mmol/L Potassium Level 3.2 L 3.5-5.1 mmol/L Chloride Level 113 H 101-111 mmol/L Carbon Dioxide Level 16 L 21-32 mmol/L Blood Urea Nitrogen 33 H 7-18 mg/dL Creatinine 2.5 H 0.5-1.0 mg/dL Glomerular Filtration Rate Calc 20 >90 mL/min Random Glucose 236 H 70-105 mg/dL Total Calcium 7.5 L 8.5-10.1 mg/dL Total Bilirubin 0.4 0.2-1.0 mg/dL Aspartate Amino Transf (AST/SGOT) 16 10-37 U/L Alanine Aminotransferase (ALT/SGPT) 6 L 12-78 U/L Alkaline Phosphatase 154 H 50-136 U/L Total Protein 4.4 L 6.0-8.3 g/dL Albumin 0.8 L 3.5-5.0 g/dL Magnesium Level 2.00 1.80-2.40 mg/dL Phosphorus Level 3.1 2.5-4.9 mg/dL C-Reactive Protein, Quantitative 223.10 H 0.5-3.0 mg/L Coagulation Labs: Test 01/28/25 06:58 01/28/25 05:16 Range/Units Activated Partial Thromboplast Time > 139.0 *H 26.3-35.5 SEC Prothrombin Time 24.3 H 9.6-11.6 SEC Prothromb Time International Ratio 2.51 H 0.85-1.15 DIAGNOSTICS / RADIOLOGY RESULTS: [ ] PLAN NEURO: Minimize central acting medications as possible. Fall Precautions. Well lighted room through the day and minimize interruptions through the night to prevent acute delirium. PULMONARY: Supplemental 02 as needed Titrate Fio2 to keep Spo2 > or = 90% DuoNebs and CPT as needed IS hourly while awake for pulmonary hygiene Out of bed to chair as tolerated VAP Bundle Vent/BIPAP Settings: Assist-control volume control tidal volume of 400 respiratory rate of 18 FiO2 of 50% and PEEP of five. Maintain plateau pressure less than 30 CARDIOVASCULAR: Follow hemodynamics. Titrate vasopressor to keep MAP >65 or systolic blood pressure >95mmHg Drips: Fentanyl Versed Levophed Vasopressin Protonix Sandostatin LINES: Right femoral central line PICC line pending GI & NUTRITION: Continue nutritional support Aspirations precautions Prokinetic agents and laxatives as needed KIDNEYS & ELECTROLYTES: Strict monitoring of intake and output Daily weights Avoid nephrotoxic agents Monitor electrolytes and replace as needed Goal urine output of 30mL/hr or 0.5mL/kg/hr Urine output: [ ] Fluid Balance: [ ] ENDOCRINE: Maintain blood glucose between 100-180 at all times. Insulin sliding scale for blood glucose management INFECTIOUS DISEASE: Trend temperature. Leonard-culture if febrile. Micro: [ ] follow urine culture blood culture neg Antibiotics: [ ] cefepime flagyl zyvox HEMATOLOGY & COAGULATION: Monitor H&H. Keep Hgb > 7 Transfuse 1 unit of PRBC for Hgb < 7 Transfuse 1 pack of platelets of platelets < 20, 000 Watch for any signs and symptoms of bleeding SKIN: Pressure ulcer prevention per facility protocol Rehab: PT/OT Prophylaxis: GI: Protonix 40 mg b.i.d. DVT: SCDs avoid anticoagulants due to hematemesis Code Status: Full Resuscitation Disposition: [ ICU Case was discussed and seen with my supervising physician. The above plan was formulated and agreed upon. RERE BLAIR Jan 28, 2025 12:38
--- NOTE | 2025-01-28 13:49 | PN ---
NEPHROLOGY PROGRESS NOTE Date/Time Patient Seen: Jan 28, 2025 SUBJECTIVE: This is a 70-year-old female with past medical history of diabetes mellitus type 2, hypertension, anemia, history of CVA, history of right below-knee amputation, chronic kidney disease with prior history of dialysis She presented to the hospital secondary to hematemesis. Patient is currently intubated and sedated. Most information was obtained from chart review. bedside nurse, and family due to patient's condition The patient was noted to have black colored vomit at home which started yesterday. She has a history of peptic ulcer disease. She also has a PEG tube placed around two weeks ago. Peg tube was placed in [facility]. She was noted to have elevated BUN/creatinine. Continues to require vasopressors to maintain blood pressure. Continues on antibiotics We are consulted for renal failure Renal function remains elevated Electrolytes show hyperkalemia Iron panel was noted,S/p PRBC NM bleeding scan was negative GI workup is ongoing Imaging studies were noted She continues on antibiotics She was seen in the ICU, intubated and sedated Family at the bedside Condition is critical and guarded REVIEW OF SYSTEMS: Difficult to obtain given status of the patient who remains intubated mechanically ventilated Vital Signs (last 8hr) Date Time Temp Pulse Resp B/P (MAP) Pulse Ox O2 Delivery O2 Flow Rate FiO2 01/28/25 09:55 30 01/28/25 09:20 70 30 01/28/25 08:00 97.5 01/28/25 08:00 100 Ventilator+ 30 01/28/25 08:00 71 14 97/55 (69) 100 01/28/25 07:45 72 16 119/64 (82) 100 01/28/25 07:30 73 16 113/62 (79) 100 01/28/25 07:15 72 16 124/66 (85) 100 01/28/25 07:00 74 16 116/59 (78) 100 01/28/25 06:45 74 15 116/59 (78) 100 01/28/25 06:42 75 30 PHYSICAL EXAM: General: acutely ill, sedated, intubated, and mechanically ventilated HEENT: head is atraumatic, pupils equal and reactive, ET tube in place Neck: supple, no masses, no lymphadenopathy, no thyromegaly, no JVD Lungs: decreased breath sounds bilaterally, symmetrical chest movement Cardio: regular rate, S1 and S2 normal, no rub or gallop Abdomen: soft, non tender, no distension, no organomegaly Extremities: trace edema bilateral lower extremities, no cyanosis or clubbing Skin: no rashes or suspicious lesions Neuro: sedated Current Medications Medications (Trade) Dose Ordered Sig/Arik Route Start Time Stop Time Status Last Admin Dose Admin Albumin Human 50 ml @ 0 mls/hr Q8H6 IV 01/24/25 14:00 01/24/25 22:00 Artificial Tears (Artificial Tears) 1 DROP OR AD Q8H OU 01/23/25 19:30 02/22/25 19:29 01/24/25 12:13 1 DROP Cefepime HCl (MAXipime 2 gm vial) 2 gm Q24H IVPB 01/23/25 12:00 02/02/25 11:59 01/24/25 12:13 2 GM Ceftriaxone Sodium (ROCEphine 1G INJ) 1 gm Q24H IVPB 01/22/25 12:00 01/22/25 16:25 DC 01/22/25 14:18 1 GM Chlorhexidine Gluconate (Peridex) 15 ml TID MM 01/23/25 21:00 02/06/25 20:59 01/24/25 09:15 15 ML Fentanyl Citrate 100 ml @ 2.5 mls/hr PROTOCOL IV 01/22/25 12:00 01/22/25 11:55 DC Fentanyl Citrate 100 ml @ 2.5 mls/hr PROTOCOL IV 01/22/25 12:00 01/29/25 11:59 01/24/25 06:59 2.5 MLS/HR Insulin Human Regular (humuLIN R 100 UNIT/ML 3ML) INSULIN SLIDING SCAL... ACHS SQ 01/22/25 21:00 02/21/25 20:59 01/23/25 12:20 2 UNIT Levetiracetam (kepPRA 500 MG TABLET) 500 mg BID PO 01/22/25 21:00 01/22/25 22:13 DC Levetiracetam 500 mg/Sodium Chloride 100 ml @ 400 mls/hr Q12H9 IV 01/22/25 22:00 02/21/25 21:59 01/24/25 09:17 400 MLS/HR Levothyroxine Sodium (SYNTHroid VIAL 100MCG) 100 mcg SYN IV 01/23/25 06:30 02/22/25 06:29 01/24/25 05:34 100 MCG Linezolid 300 ml @ 150 mls/hr Q12H IV 01/24/25 08:00 02/03/25 07:59 01/24/25 09:15 150 MLS/HR Metronidazole/ Sodium Chloride 100 ml @ 100 mls/hr Q8H6 IVPB 01/22/25 22:00 02/01/25 21:59 01/24/25 05:34 100 MLS/HR Midazolam HCl 50 ml @ 0 mls/hr PROTOCOL IV 01/22/25 12:00 01/29/25 11:59 01/22/25 20:51 1 MLS/HR Norepinephrine 250 ml @ 0 mls/hr PROTOCOL IV 01/22/25 10:00 01/23/25 09:52 DC 01/22/25 14:24 60 MLS/HR Norepinephrine Bitartrate (Norepineph 16 Mg/250ml NS Premix) per protocol PROTOCOL IV 01/23/25 10:00 02/22/25 09:59 01/23/25 23:50 16 MG Octreotide Acetate 1250 mcg/ Sodium Chloride 250 ml @ 0 mls/hr PROTOCOL IV 01/22/25 12:30 01/22/25 12:17 DC Octreotide Acetate 1250 mcg/ Sodium Chloride 250 ml @ 0 mls/hr PROTOCOL IV 01/22/25 12:30 01/24/25 09:23 DC 01/22/25 12:41 5 MLS/HR Pantoprazole Sodium (PROTonix 40MG INJ) 40 mg BID IVP 01/24/25 21:00 02/23/25 20:59 Pantoprazole Sodium 80 mg/ Sodium Chloride 100 ml @ 10 mls/hr Q10H IV 01/22/25 09:00 01/24/25 09:23 DC 01/24/25 09:17 10 MLS/HR Pharmacy Profile Note (Pharmacy Communication) 1 each ONCE MISC 01/22/25 12:00 01/22/25 11:53 DC Pharmacy Profile Note (Pharmacy Communication) 1 each ONCE MISC 01/22/25 12:00 01/22/25 11:53 DC Pharmacy Profile Note (Pharmacy Communication) 1 each ONCE MISC 01/23/25 13:00 01/23/25 13:09 DC Pharmacy Profile Note (Pharmacy Communication) 1 each ONCE MISC 01/24/25 08:00 01/24/25 07:51 DC Sodium Chloride 1,000 ml @ 150 mls/hr Q6H40M IV 01/22/25 12:00 01/23/25 10:56 DC 01/23/25 02:45 150 MLS/HR Sucralfate (Carafate) 1 gm BID PO 01/23/25 21:00 01/23/25 11:41 DC Sucralfate (Carafate) 1 gm TID PO 01/23/25 14:00 02/22/25 20:59 01/24/25 09:15 1 GM Thiamine HCl 100 mg/Sodium Chloride 50 ml @ 100 mls/hr Q24H IV 01/23/25 14:00 01/25/25 14:29 01/23/25 14:05 100 MLS/HR Vancomycin HCl (Vancomycin 750mg) 750 mg Q24H IVPB 01/23/25 17:00 01/23/25 10:56 DC Vancomycin HCl (Vancomycin Protocol) 1 each AD IV 01/22/25 15:00 01/23/25 10:56 DC LABORATORY: [ ] Hematology Labs: Test 01/28/25 05:16 01/27/25 05:16 Range/Units White Blood Count 12.9 H 4.8-10.8 K/uL Red Blood Count 2.80 L 4.00-5.50 MIL/uL Hemoglobin 8.3 L 12.0-16.0 g/dL Hematocrit 24.4 L 36-48 % Mean Corpuscular Volume 87.1 79-99 fL Mean Corpuscular Hemoglobin 29.6 27.0-33.0 pg Mean Corpuscular Hemoglobin Concent 34.0 32.0-36.0 g/dL Red Cell Distribution Width 18.8 H 11.0-15.5 % Platelet Count 276 130-400 K/uL Mean Platelet Volume 11.2 H 7.5-10.5 fL Nucleated Red Blood Cells 0.5 H 0.0-0.19 % Red Blood Cell Morphology See comments Immature Granulocyte % (Auto) 1.1 H 0-1 % Neutrophils (%) (Auto) 63.2 40.0-77.0 % Lymphocytes (%) (Auto) 23.9 21.0-51.0 % Monocytes (%) (Auto) 8.2 3.0-13.0 % Eosinophils (%) (Auto) 2.6 0.0-8.0 % Basophils (%) (Auto) 1.0 0.0-5.0 % Neutrophils # (Auto) 6.8 1.8-7.7 K/uL Lymphocytes # (Auto) 2.6 1.0-4.8 K/uL Monocytes # (Auto) 0.9 0.1-1.0 K/uL Eosinophils # (Auto) 0.28 0.00-0.70 K/uL Basophils # (Auto) 0.11 0.00-0.20 K/uL Absolute Immature Granulocyte (auto 0.12 0-1 K/uL Chemistry Labs: Test 01/28/25 13:13 01/28/25 05:16 01/27/25 11:12 01/27/25 05:16 Range/Units Whole Blood Glucose 201 H 70-110 MG/DL Sodium Level 143 136-145 mmol/L Potassium Level 3.2 L 3.5-5.1 mmol/L Chloride Level 113 H 101-111 mmol/L Carbon Dioxide Level 16 L 21-32 mmol/L Blood Urea Nitrogen 33 H 7-18 mg/dL Creatinine 2.5 H 0.5-1.0 mg/dL Glomerular Filtration Rate Calc 20 >90 mL/min Random Glucose 236 H 70-105 mg/dL Total Calcium 7.5 L 8.5-10.1 mg/dL Total Bilirubin 0.4 0.2-1.0 mg/dL Aspartate Amino Transf (AST/SGOT) 16 10-37 U/L Alanine Aminotransferase (ALT/SGPT) 6 L 12-78 U/L Alkaline Phosphatase 154 H 50-136 U/L Total Protein 4.4 L 6.0-8.3 g/dL Albumin 0.8 L 3.5-5.0 g/dL Magnesium Level 2.00 1.80-2.40 mg/dL Phosphorus Level 3.1 2.5-4.9 mg/dL C-Reactive Protein, Quantitative 223.10 H 0.5-3.0 mg/L Coagulation Labs: Test 01/28/25 06:58 01/28/25 05:16 Range/Units Activated Partial Thromboplast Time > 139.0 *H 26.3-35.5 SEC Prothrombin Time 24.3 H 9.6-11.6 SEC Prothromb Time International Ratio 2.51 H 0.85-1.15 DIAGNOSTICS / RADIOLOGY: [place] [id number] [address] [facility] [address] [place] [address] IMAGING REPORT Signed PATIENT: JUSTIN KLINE MR#: [id number] : 1955 SEX: F AGE: 70 LOCATION: 2CH ORDER 1539 STATUS: ADM IN REPORT#: [id number] SERVICE 153 REASON: picc placement ORDERING PHYSICIAN: RERE BLAIR PROCEDURE: CXR1VW - CHEST 1VW CHEST 1VW REASON: picc placement COMPARISON: Prior chest radiograph from 01/25/2025 at 1534 is available. FINDINGS: Single view of the chest was obtained. Lungs are clear. Heart size is normal. There is uncoiling atherosclerotic change of thoracic ureter. There is no pulmonary vascular congestion. Mediastinum and bony thorax appear unremarkable. There is a right-sided PIC catheter tip in superior vena cava at the cavoatrial junction. Endotracheal tube is in satisfactory position. IMPRESSION: 1. Support lines are in satisfactory position.. 2. No evidence of airspace consolidation or pulmonary venous congestion. DICTATED BY: RENA MADDOX MD DATE: 01/25/25 1558 ELECTRONICALLY SIGNED BY: RENA MADDOX MD DATE: 01/25/25 1604 PATIENT: JUSTIN KLINE MR#: [id number] : 1955 SEX: F AGE: 70 LOCATION: 2CH ORDER 1529 STATUS: ADM IN REPORT#: [id number] SERVICE 152 REASON: PICC placement ORDERING PHYSICIAN: RERE BLAIR PROCEDURE: CXR1VW - CHEST 1VW EXAM: XR Chest, 1 View. CLINICAL HISTORY: 70 year old female PICC placement right upper extremity. COMPARISON: None provided. FINDINGS: LUNGS: The lungs are clear. No consolidation. PLEURAL SPACES: No pleural effusion or pneumothorax. HEART: The heart size is enlarged. BONES: No acute osseous abnormality. LINES AND TUBES: PICC line with tip in the SVC. Endotracheal tube with tip in the arminda. VASCULATURE: Atherosclerotic aorta, similar to prior. IMPRESSION: 1. No acute cardiopulmonary pathology. 2. PICC line with tip in the SVC and endotracheal tube with tip in the arminda. /[place] DICTATED BY: TOM SANCHEZ MD DATE: 01/25/252108 ELECTRONICALLY SIGNED BY: TOM SANCHEZ MD DATE: 01/25/252108 PATIENT: JUSTIN KLINE MR#: [id number] : 1955 SEX: F AGE: 70 LOCATION: 2CH ORDER 2300 STATUS: ADM IN REPORT#: [id number] SERVICE 06 REASON: vented pt ORDERING PHYSICIAN: KARL RODRIGUEZ PROCEDURE: CXR1VW - CHEST 1VW EXAM: XR Chest, 2 Views. CLINICAL HISTORY: 70-year-old female, ventilated. COMPARISON: 01/24/2025. FINDINGS: LUNGS: Atelectasis lung bases. PLEURAL SPACES: Left pleural effusion, similar to prior XR chest from 01/24/2025 at 4:48 am. HEART: The heart size is normal. BONES: No acute osseous abnormality. IMPRESSION: 1. Left pleural effusion, similar to prior XR chest from 01/24/2025 at 4:48 am. 2. Atelectasis lung bases. /[place] DICTATED BY: TOM SANCHEZ MD DATE: 01/25/252038 ELECTRONICALLY SIGNED BY: TOM SANCHEZ MD DATE: 01/25/252038 PATIENT: JUSTIN KLINE MR#: [id number] : 1955 SEX: F AGE: 70 LOCATION: 2CH ORDER 1510 STATUS: ADM IN REPORT#: [id number] SERVICE 1508 REASON: HGB drop, assess for possible GI bleed ORDERING PHYSICIAN: KIRSTEN KRUSE MD PROCEDURE: GIBLEED - NM GI BLOOD LOSS IMAG Examination NM radiolabeled red blood cell study History Gastrointestinal bleeding Technique After IV administration of Tc-99m labeled red autologous blood cells, anterior projection images of the abdomen and pelvis were obtained dynamically for one hour. Findings Following administration of radiolabeled red blood cells, there is normal activity seen in cardiovascular and genitourinary structures, the liver and spleen. There is no evidence for extravasation of radiolabeled red blood cells during the examination. IMPRESSION: No evidence of gastrointestinal hemorrhage during the course of examination acquisition. /[place] DICTATED BY: RADHA BECERRA Jr., MD DATE: 01/25/251457 ELECTRONICALLY SIGNED BY: RADHA BECERRA Jr., MD DATE: 01/25/251457 PATIENT: JUSTIN KLINE MR#: [id number] : 1955 SEX: F AGE: 70 LOCATION: 2CH ORDER 1143 STATUS: ADM IN REPORT#: [id number] SERVICE 1131 REASON: new onset swelling in her arms ORDERING PHYSICIAN: KIRSTEN KRUSE MD PROCEDURE: VENOUS ALCIDES - US VENOUS DOPPLER BILATERAL EXAMINATION: SPECTRAL DOPPLER ULTRASOUND EXAMINATION OF THE BILATERAL UPPER EXTREMITY VEINS. CLINICAL HISTORY: Swelling. COMPARISON: None. TECHNIQUE: Grayscale, color, and spectral Doppler images of the bilateral upper extremity veins are submitted. FINDINGS: Right: The cephalic and brachial veins are patent. These veins show normal flow with physiological changes of phasicity and augmentation. There is thrombosis in the subclavian, axillary, and basilic veins. Left: The internal jugular, subclavian, axillary, basilic, brachial veins are patent. These veins show normal flow with physiological changes of phasicity and augmentation. IMPRESSION: Deep vein thrombosis in the right subclavian and axillary veins. Right basilic vein thrombosis. The taker off drying kiln informed the patient's nurse at the time of the exam. /[place] DICTATED BY: GOVIND HAYES MD DATE: 01/25/25722 ELECTRONICALLY SIGNED BY: GOVIND HAYES MD DATE: 01/25/25722 PATIENT: JUSTIN KLINE MR#: [id number] : 1955 SEX: F AGE: 70 LOCATION: 2CH ORDER 2300 STATUS: ADM IN REPORT#: [id number] SERVICE 06 REASON: vented pt ORDERING PHYSICIAN: KARL RODRIGUEZ PROCEDURE: CXR1VW - CHEST 1VW EXAM: CR Chest, 1 View. CLINICAL HISTORY: vented pt COMPARISON: None provided. FINDINGS: LUNGS: Endotracheal tube midline above arminda Slight worsening left lower lobe infiltrate PLEURAL SPACES: No evidence of pleural effusion or pneumothorax. MEDIASTINUM: Cardiac size and mediastinal contours within normal limits. BONES: No acute osseous abnormality. IMPRESSION: 1. Endotracheal tube midline above arminda 2. Slight worsening left lower lobe infiltrate /[place] DICTATED BY: ANA ALSTON MD DATE: 01/24/252109 ELECTRONICALLY SIGNED BY: ANA ALSTON MD DATE: 01/24/252109 PATIENT: JUSTIN KLINE MR#: [id number] : 1955 SEX: F AGE: 70 LOCATION: 2CH ORDER 1301 STATUS: ADM IN REPORT#: [id number] SERVICE 1258 REASON: Decreased renal function ORDERING PHYSICIAN: SAUMYA ANTONIO PROCEDURE: RENAL - US RENAL SONOGRAM EXAMINATION: ULTRASOUND OF THE RETROPERITONEUM. CLINICAL HISTORY: Decreased renal function. COMPARISON: CT abdomen and pelvis without contrast dated 01/22/2025. TECHNIQUE: Real-time grayscale ultrasound images of the kidneys. FINDINGS: The right kidney is smaller in caliber, and the left kidney is normal in caliber, the right kidney measures 7.4 x 3.9 x 3.1 cm and the left kidney measures 8.2 x 3.0 x 3.3 cm in its craniocaudal, AP, and transverse dimensions respectively. There is normal renal cortical thickness and increased cortical echogenicity. There is no renal calculus or hydronephrosis. The urinary bladder is empty. There is Kamara???s bulb. IMPRESSION: Relatively small right kidney. Increased echogenicity of both the kidneys may reflect renal parenchymal disease. Recommend clinical correlation and with laboratory parameters. Kamara???s bulb is in situ. /[place] DICTATED BY: RADHA BECERRA Jr., MD DATE: 01/23/252300 ELECTRONICALLY SIGNED BY: RADHA BECERRA Jr., MD DATE: 01/23/252300 PATIENT: JUSTIN KLINE MR#: [id number] : 1955 SEX: F AGE: 70 LOCATION: [facility] ORDER STATUS: ADM IN REPORT#: [id number] SERVICE 0743 REASON: intubated,congestion ORDERING PHYSICIAN: KARL RODRIGUEZ PROCEDURE: CXR1VW - CHEST 1VW EXAM: CR Chest, 1 View. CLINICAL HISTORY: intubated,congestion COMPARISON: 01/22 16:55 EDT CR - CHEST 1VW FINDINGS: ET tube 3.7 cm above the arminda. LUNGS: The lungs show no infiltrate or other acute finding. PLEURAL SPACES: No pleural effusion or pneumothorax. MEDIASTINUM: Cardiac size and mediastinal contours within normal limits. BONES: No acute osseous abnormality. IMPRESSION: No acute cardiopulmonary pathology is evident. ET tube 3.7 cm above the arminda. /[place] DICTATED BY: RADHA BECERRA Jr., MD DATE: 01/23/25 1010 ELECTRONICALLY SIGNED BY: RADHA BECERRA Jr., MD DATE: 01/23/25 1010 PATIENT: JUSTIN KLINE MR#: [id number] : 1955 SEX: F AGE: 70 LOCATION: 2CH ORDER 23 STATUS: ADM IN REPORT#: [id number] SERVICE 22 REASON: NG tube location ORDERING PHYSICIAN: KENA HAWLEY MD PROCEDURE: ABD 1VW - ABD 1VW ADDENDUM REPORT ADDENDUM: Results were shared by telephone at 10:10 pm on 01-22-25 and acknowledged by KENA Rivas. /[place] EXAM: CR Abdomen, 1 View. CLINICAL HISTORY: NG tube location COMPARISON: None provided. FINDINGS: BOWEL: The bowel gas pattern is within normal limits. PERITONEUM/SOFT TISSUES: No free air evident. No pathologic appearing calcification. BONES: No acute osseous abnormality. MISCELLANEOUS: No nasogastric tube identified. Gastrostomy tube left upper IMPRESSION: 1. No nasogastric tube identified. 2. Gastrostomy tube left upper quadrant /[place] DICTATED BY: ANA ALSTON MD DATE: 01/22/252210 ELECTRONICALLY SIGNED BY: DATE: EXAM: CR Abdomen, 1 View. CLINICAL HISTORY: NG tube location COMPARISON: None provided. FINDINGS: BOWEL: The bowel gas pattern is within normal limits. PERITONEUM/SOFT TISSUES: No free air evident. No pathologic appearing calcification. BONES: No acute osseous abnormality. MISCELLANEOUS: No nasogastric tube identified. Gastrostomy tube left upper IMPRESSION: 1. No nasogastric tube identified. 2. Gastrostomy tube left upper quadrant /[place] DICTATED BY: ANA ALSTON MD DATE: 01/22/252200 ELECTRONICALLY SIGNED BY: ANA ALSTON MD DATE: 01/22/252200 PATIENT: JUSTIN KLINE MR#: [id number] : 1955 SEX: F AGE: 70 LOCATION: 2CH ORDER 50 STATUS: ADM IN REPORT#: [id number] SERVICE 49 REASON: post intubation CXR ORDERING PHYSICIAN: KARL RODRIGUEZ PROCEDURE: CXR1VW - CHEST 1VW ADDENDUM REPORT ADDENDUM: Results were shared by telephone at 6:33 pm on 01-22-25 and acknowledged by patient's nurse JESSICA Mas. /[place] EXAM: CR Chest, 2 View. CLINICAL HISTORY: post intubation CXR COMPARISON: None provided. FINDINGS: LUNGS: Endotracheal tube appears midline above arminda PLEURAL SPACES: No pleural effusion or pneumothorax. MEDIASTINUM: The cardiomediastinal silhouette is within normal limits. BONES: No acute osseous abnormality. MISCELLANEOUS: Question nasogastric tube in the thoracic inlet. IMPRESSION: 1. Endotracheal tube appears midline above arminda 2. Question nasogastric tube in the thoracic inlet. /[place] DICTATED BY: ANA ALSTON MD DATE: 01/22/251835 ELECTRONICALLY SIGNED BY: DATE: EXAM: CR Chest, 2 View. CLINICAL HISTORY: post intubation CXR COMPARISON: None provided. FINDINGS: LUNGS: Endotracheal tube appears midline above arminda PLEURAL SPACES: No pleural effusion or pneumothorax. MEDIASTINUM: The cardiomediastinal silhouette is within normal limits. BONES: No acute osseous abnormality. MISCELLANEOUS: Question nasogastric tube in the thoracic inlet. IMPRESSION: 1. Endotracheal tube appears midline above arminda 2. Question nasogastric tube in the thoracic inlet. /[place] DICTATED BY: ANA ALSTON MD DATE: 01/22/251821 ELECTRONICALLY SIGNED BY: ANA ALSTON MD DATE: 01/22/251821 PATIENT: JUSTIN KLINE MR#: [id number] : 1955 SEX: F AGE: 70 LOCATION: 2CH ORDER 11 STATUS: ADM IN REPORT#: [id number] SERVICE 150 REASON: transaminitis rule out CBD dilation/obstruction cholangitis ORDERING PHYSICIAN: KARL RODRIGUEZ PROCEDURE: ABDRUQLTD - US ABDOMINAL RUQ\LTD EXAMINATION: ULTRASOUND OF THE ABDOMEN (LIMITED) WITH COLOR DOPPLER. CLINICAL HISTORY: Transaminitis. To rule out CBD obstruction. COMPARISON: CT abdomen and pelvis without contrast from the same day. TECHNIQUE: Real-time grayscale ultrasound images of the abdomen. In addition, color Doppler is medically necessary to perform in order to evaluate vascularity and blood flow. FINDINGS: Liver: Normal in caliber, the right hepatic lobe measures 15.4 cm in the craniocaudal dimension. There is increased echogenicity of the hepatic parenchyma. There is no focal hepatic abnormality or intrahepatic biliary ductal dilatation. There is normal spectral Doppler of the main portal vein. Gallbladder: Within normal limits with normal wall thickness (0.22 cm). No hyperemia or pericholecystic free fluid. There are few calculi, the largest measure 1.5 cm. Common bile duct is normal in caliber, measuring 0.28 cm. Pancreas: Obscured by overlying bowel gas. The right kidney is normal in caliber, the right kidney measures 8.2 x 3.3 x 2.9 cm in craniocaudal, AP, and transverse dimensions respectively. There is normal renal cortical thickness, and cortical echogenicity. There is no renal calculus or hydronephrosis. IMPRESSION: Hepatic steatosis. Cholelithiasis. No cholecystitis. /[place] DICTATED BY: GOVIND HAYES MD DATE: 01/23/25856 ELECTRONICALLY SIGNED BY: GOVIDN HAYES MD DATE: 01/23/25856 PATIENT: JUSTIN KLINE MR#: [id number] : 1955 SEX: F AGE: 70 LOCATION: 2CH ORDER 1227 STATUS: ADM IN REPORT#: [id number] SERVICE 1226 REASON: PERICARDIAL EFFUSION. Please also assess EF ORDERING PHYSICIAN: KENA HAWLEY MD PROCEDURE: ECHO [facility] - ECHO 2-D COMPLETE APPROVED REPORT EXAM: Two-dimensional and M-mode echocardiogram with Doppler and color Doppler. INDICATION ICD: Assess pericardial effusion and ejection fraction 2D Dimensions RVDd 3.0 cm LVEF(%) 49.3 (>50%) LVED Vol(simp.) 20.0 mL IVSd 1.9 (0.7-1.1cm) FS(%) 23 % LVES Vol(simp.) 9.0 mL LVDd 2.4 (3.8-5.6cm) LA (2D) 2.6 (1.6-4.0cm) LVEF(%, simp.) 55 % PWd 2.0 (0.7-1.1cm) Ao Root(2D) 2.7 (2.0-3.7cm) LA ESV INDEX (BP) 22.00 mL/m2 IVSs 2.0 cm LVOT diam 2.0 (1.8-2.4cm) LVDs 1.8 (2.5-4.0cm) IVC diam 1.2 cm PWs 1.7 cm Deformation Strain Apical 4 -7.1 % Apical 2 -6.9 % Apical 3 -10.1 % Global Strain -8.0 % M-Mode Dimensions EPSS 0.8 cm LA (MM) 2.3 (1.6-4.0cm) Ao Root(MM) 2.9 (2.0-3.7cm) Aortic Valve AoV Vmax 2.1 m/s Ao Peak GR 17.0 mmHg LVOT Vmax 2.1 m/s AoV VTI 0.2 m Ao Mean GR 8.4 mmHg LVOT VTI 0.22 m YASMEEN (VMAX) 3.02 cm2 YASMEEN (VTI) 3.6 cm2 Mitral Valve MV E Vmax 51.6 cm/s DECEL Time 82 ms MV A Vmax 69.0 cm/s P 1/2 T 19 ms E/A ratio 0.7 MVA (PHT) 11.9 cm2 TDI E/E' Medial 6.8 E/E' Lateral 9.3 Medial E' Peak V 7.57 cm/s Lateral E' Peak V 5.54 cm/s Pulmonary Valve PV Vmax 1.3 m/s PV VTI 0.14 m PV Mean GR 3.5 mmHg PV Peak GR 6.5 mmHg Tricuspid Valve TR Vmax 1.5 m/s RAP (EST) 3 mmHg RVSP 12.4 mmHg TR Peak GR 9.4 mmHg Left Ventricle Left ventricular cavity is small. GLS -8.0% Severe concentric left ventricular hypertrophy. LVEF is 50-55%. The left ventricular diastolic function is normal. Right Ventricle The right ventricle is normal size. The right ventricular systolic function is normal. Atria The left atrium size is normal. The right atrium is small in size. Aortic Valve The aortic valve is normal in structure. No aortic regurgitation is present. There is no aortic valvular stenosis. Mitral Valve The mitral valve is normal in structure. There is trace of mitral valve regurgitation noted. There is no mitral valve stenosis. Tricuspid Valve The tricuspid valve is normal in structure. There is trace of tricuspid valve regurgitation noted. Pulmonic Valve Pulmonic valve is not well visualized. There is no pulmonic valvular regurgitation. Great Vessels The aortic root is normal in size. The IVC is normal in size and collapses >50% with inspiration. Pericardium There is no pericardial effusion. Other Information Quality : Technically difficult study due to body habitus, pt intubated Rhythm : Tachycardia Conclusion LVEF is 50-55%. Severe concentric left ventricular hypertrophy. The left ventricular diastolic function is normal. There is no pericardial effusion. DICTATED BY: GIULIANA AWAN DO DATE: 01/22/25 1318 ELECTRONICALLY SIGNED BY: GIULIANA AWAN DO DATE: 01/23/25 0767 PATIENT: JUSTIN KLINE MR#: [id number] : 1955 SEX: F AGE: 70 LOCATION: [facility] ORDER 1152 STATUS: ADM IN REPORT#: [id number] SERVICE 1151 REASON: S/P INTUBATION. ET tube position ORDERING PHYSICIAN: KENA HAWLEY MD PROCEDURE: CXR1VW - CHEST 1VW EXAM: CR Chest, 2 View. CLINICAL HISTORY: S/P INTUBATION. ET tube position COMPARISON: Radiograph from January 22 at 8:53 AM FINDINGS: Endotracheal tube terminates 1.4 cm above the arminda. LUNGS: There is no mass, infiltrate, or acute pulmonary abnormality. PLEURAL SPACES: No pleural effusion or pneumothorax. MEDIASTINUM: Cardiac size and mediastinal contours within normal limits. Atherosclerosis of the thoracic aorta. BONES: No acute osseous abnormality. IMPRESSION: 1. Endotracheal tube positioned 1.4 cm above the arminda. 2. No acute cardiopulmonary abnormality. /[place] DICTATED BY: RADHA BECERRA Jr., MD DATE: 01/22/251309 ELECTRONICALLY SIGNED BY: RADHA BECERRA Jr., MD DATE: 01/22/251309 PATIENT: JUSTIN KLINE MR#: [id number] : 1955 SEX: F AGE: 70 LOCATION: [facility] ORDER 8 STATUS: [facility] REPORT#: [id number] SERVICE 7 REASON: gi bleed ORDERING PHYSICIAN: JULISA PETERSON MD PROCEDURE: ABD PEL WO - CT ABDOMEN/PELVIS W/O CONTRAST CT ABDOMEN/PELVIS W/O CONTRAST REASON: gi bleed COMPARISON: None. FINDINGS: Lung bases are clear. There is a small left-sided pleural effusion. There is coronary calcifications suggesting coronary artery disease. There is suggestion of small pericardial effusion. There is a moderate size hiatal hernia. . There are no focal liver lesions. There are normal-appearing kidneys.. Spleen and pancreas appear unremarkable. The gallbladder appears normal as well. There is a feeding gastrostomy tube in place. Bowel loops appear unremarkable. This includes normal appearance of the appendix . There is fecal stasis in the rectal vault. Abutting the right lobe of the bowel in the right lower quadrant and abutting the right psoas muscle there is a a cystic structure measuring 5.9 x 3.9 cm. There is no evidence of free fluid or intraperitoneal air. There are no focal fluid collections. The retroperitoneum appear normal as do pelvic soft tissue structures. Aorta and iliac vessels demonstrate diffuse atherosclerotic changes. The anterior abdominal wall is intact. Osseous structures appear unremarkable. The uterus is surgically absent. IMPRESSION: 1. No acute process seen in CT of abdomen and pelvis without intravenous contrast 2. In the right adnexal region there is a cystic structure measuring 5.9 x 3.9 cm 3. Fecal stasis impaction seen in the rectal vault CT was performed with one or more following dose reduction techniques: automated exposure control, adjustment of the mA and kv according to patient's size, or use of a iterative reconstruction technique. DICTATED BY: RENA MADDOX MD DATE: 01/22/25 1044 ELECTRONICALLY SIGNED BY: RENA MADDOX MD DATE: 01/22/25 1051 PATIENT: JUSTIN KLINE MR#: [id number] : 1955 SEX: F AGE: 70 LOCATION: [facility] ORDER STATUS: [facility] REPORT#: [id number] SERVICE 0948 REASON: gi bleed ORDERING PHYSICIAN: JULISA PETERSON MD PROCEDURE: ABD PEL WO - CT ABDOMEN/PELVIS W/O CONTRAST CT ABDOMEN/PELVIS W/O CONTRAST REASON: gi bleed COMPARISON: None. FINDINGS: Lung bases are clear. There is a small left-sided pleural effusion. There is coronary calcifications suggesting coronary artery disease. There is suggestion of small pericardial effusion. There is a moderate size hiatal hernia. . There are no focal liver lesions. There are normal-appearing kidneys.. Spleen and pancreas appear unremarkable. The gallbladder appears normal as well. There is a feeding gastrostomy tube in place. Bowel loops appear unremarkable. This includes normal appearance of the appendix . There is fecal stasis in the rectal vault. Abutting the right lobe of the bowel in the right lower quadrant and abutting the right psoas muscle there is a a cystic structure measuring 5.9 x 3.9 cm. There is no evidence of free fluid or intraperitoneal air. There are no focal fluid collections. The retroperitoneum appear normal as do pelvic soft tissue structures. Aorta and iliac vessels demonstrate diffuse atherosclerotic changes. The anterior abdominal wall is intact. Osseous structures appear unremarkable. The uterus is surgically absent. IMPRESSION: 1. No acute process seen in CT of abdomen and pelvis without intravenous contrast 2. In the right adnexal region there is a cystic structure measuring 5.9 x 3.9 cm 3. Fecal stasis impaction seen in the rectal vault CT was performed with one or more following dose reduction techniques: automated exposure control, adjustment of the mA and kv according to patient's size, or use of a iterative reconstruction technique. DICTATED BY: RENA MADDOX MD DATE: 01/22/251043 ELECTRONICALLY SIGNED BY: RENA MADDOX MD DATE: 01/22/251050 PATIENT: JUSTIN KLINE MR#: [id number] : 1955 SEX: F AGE: 70 LOCATION: [facility] ORDER 9 STATUS: [facility] REPORT#: [id number] SERVICE 7 REASON: cp ORDERING PHYSICIAN: JULISA PETERSON MD PROCEDURE: CXR1VW - CHEST 1VW EXAM: Chest radiograph 1 view HISTORY: Chest pain COMPARISON: None FINDINGS: No pulmonary consolidations. No pleural effusion or pneumothorax. Enlarged cardiac silhouette. Tortuous calcified aorta. No overt congestion. Degenerative changes. IMPRESSION: No acute cardiopulmonary disease. /[place] DICTATED BY: DESTINY CASTELLANOS MD DATE: 01/22/251058 ELECTRONICALLY SIGNED BY: DESTINY CASTELLANOS MD DATE: 01/22/251058 ASSESSMENT: Acute renal failure Anemia Septic shock requiring pressors, POA Acute metabolic encephalopathy POA Acute Hypoxic rep failure requiring intubation for airway protection POA Acute complicated cystitis POA Acute on chronic anemia 2/ GI Bleed (Hematemesis) POA Hyperglycemia in the presence of type 2 diabetes mellitus, POA right adnexal region there is a cystic structure measuring 5.9 x 3.9 cm Thrombocytosis Hypokalemia Electrolyte derangement (hypokalemia, hypocalcemia) severe Hypoalbuminemia Malnutrition Transaminitis Elevated TSH suspected myxedema Uncontrolled type 2 diabetes mellitus Essential hypertension Anemia Prior history of CVA Right [id number] amputation G-tube in situ Bed ridden Recent hospitalization [facility] for hematemesis PLAN: Labs, diagnostic, radiologic exams reviewed and interpreted by myself and supervising physician. We have reviewed external records in detail Require close monitoring of renal function and electrolytes Order CBC, CMP, and electrolytes in am Continue with antibiotics Continue mechanical ventilation and sedation Continue with IV pressors Monitor blood pressure adjust medication doses as needed Avoid hypotensive episodes May use Dilaudid 0.5 mg IV every 6 hours as needed for severe pain Monitor blood sugars Strict intake, output, and daily weight should be monitored Please renally adjust medications Avoid nephrotoxic and nonsteroidal drugs Avoid contrast if possible Will continue to monitor renal function, anemia, electrolytes Treatment plan discussed with patient Questions were answered We have discussed with the other team physicians in detail about the care plan We will continue to monitor the patient closely Total critical care time spent with patient, nursing staff, critical care team over 35 minutes ATTESTATION BY PHYSICIAN I have seen and examined the patient. I reviewed the documentation, medical decision making, and treatment plan as noted by the mid-level provider above. I agree with the findings and plan of care. CHRISTELLE SIMENTAL MD, [facility] Jan 28, 2025 13:49
--- NOTE | 2025-01-28 14:20 | NUR ---
[facility] Follow-up: Patient re-assessed by wound healing team. Wound care dressing done by primary nurse in AM with no changes in wound status. Recommendations provided. Addendum: 01/28/25 at 1620 by IVANIA ANDREW RN RN/ Amended: Links added.
--- NOTE | 2025-01-28 17:09 | PN ---
PROGRESS NOTE Date of Service: Jan 28, 2025 Time of Service: 17:09 SUBJECTIVE: Patient evaluated at bedside in room 217 for wound care follow up. Patient is intubated at this time. REVIEW OF SYSTEMS Unable to complete patient is intubated and sedated PHYSICAL EXAM EYES: Anicteric. Pupils equal and reactive. HENT: No oral thrush seen, moist Oral mucosa NECK: Supple, no JVD or thyromegaly. LUNGS: decreased breath sounds CARDIOVASCULAR: S1, S2 regular. No murmur heard. ABDOMEN: Soft, non tender, bowel sounds present, no organomegaly CENTRAL NERVOUS SYSTEM: intubated and sedated SKIN: Unstageable ulcer to left buttock noted with 100% slough with periwound erythema and unstageable ulcer to coccyx noted with 100% slough and periwound erythema LYMPHATICS: No peripheral lymphadenopathy MUSCULOSKELETAL: Right BKA EXTREMITIES: No cyanosis or clubbing BACK: No deformity GENITOURINARY: No dysuria or hematuria Vital Signs (last 8hr) Date Time Temp Pulse Resp B/P (MAP) Pulse Ox O2 Delivery O2 Flow Rate FiO2 01/28/25 14:43 97.9 01/28/25 14:30 85 10 117/56 (76) 100 01/28/25 14:15 85 14 105/51 (69) 100 01/28/25 14:00 89 7 108/51 (70) 100 01/28/25 13:55 74 30 01/28/25 13:47 30 01/28/25 13:45 89 7 101/52 (68) 100 01/28/25 13:30 88 8 117/58 (77) 100 01/28/25 13:15 87 5 101/59 (73) 100 01/28/25 13:00 89 4 111/62 (78) 100 01/28/25 12:45 95 16 84/45 (58) 100 01/28/25 12:30 93 7 101/49 (66) 100 01/28/25 12:15 91 19 128/68 (88) 100 01/28/25 12:00 100 Ventilator+ 30 01/28/25 12:00 92 21 130/71 (90) 100 01/28/25 11:45 91 20 109/69 (82) 100 01/28/25 11:30 89 16 86/53 (64) 100 01/28/25 11:15 95 15 122/63 (82) 100 01/28/25 11:00 95 15 122/63 (82) 100 01/28/25 10:45 95 16 106/56 (73) 100 01/28/25 10:30 91 18 109/62 (78) 100 01/28/25 10:15 100 14 113/65 (81) 100 01/28/25 10:00 101 15 152/73 (99) 100 01/28/25 09:55 30 01/28/25 09:45 96 18 100 01/28/25 09:30 76 17 156/75 (102) 01/28/25 09:20 70 30 01/28/25 09:15 86 20 100 LABS: Laboratory: Test 01/28/25 13:13 01/28/25 09:07 01/28/25 06:58 01/28/25 05:16 Range/Units Whole Blood Glucose 201 H 70-110 MG/DL Blood Gas Specimen Type Arterial Arterial Blood pH 7.363 7.350-7.450 Arterial Blood Partial Pressure CO2 29 L 32-45 mmHg Arterial Blood Partial Pressure O2 120.6 H 83.0-108.0 mmHg Arterial Blood HCO3 16.0 L 21.0-28.0 mmol/L Arterial Blood Oxygen Saturation 98.3 H 94.0-98.0 % Arterial Blood Base Excess -7.8 L -2.0-3.0 mmol/L Blood Gas Temperature 37.0 35.5-37.0 CELSIUS Blood Gas Respiration Rate 14.0 min. Blood Gas Vent Mode AC ROOM AIR FiO2 30.0 % Blood Gas Tidal Volume 400 ml Blood Gas PEEP 5 cm H2O Blood Gas Specimen Comment LR DES, RN Activated Partial Thromboplast Time > 139.0 *H 26.3-35.5 SEC White Blood Count 12.9 H 4.8-10.8 K/uL Red Blood Count 2.80 L 4.00-5.50 MIL/uL Hemoglobin 8.3 L 12.0-16.0 g/dL Hematocrit 24.4 L 36-48 % Mean Corpuscular Volume 87.1 79-99 fL Mean Corpuscular Hemoglobin 29.6 27.0-33.0 pg Mean Corpuscular Hemoglobin Concent 34.0 32.0-36.0 g/dL Red Cell Distribution Width 18.8 H 11.0-15.5 % Platelet Count 276 130-400 K/uL Mean Platelet Volume 11.2 H 7.5-10.5 fL Nucleated Red Blood Cells 0.5 H 0.0-0.19 % Red Blood Cell Morphology See comments Prothrombin Time 24.3 H 9.6-11.6 SEC Prothromb Time International Ratio 2.51 H 0.85-1.15 Sodium Level 143 136-145 mmol/L Potassium Level 3.2 L 3.5-5.1 mmol/L Chloride Level 113 H 101-111 mmol/L Carbon Dioxide Level 16 L 21-32 mmol/L Blood Urea Nitrogen 33 H 7-18 mg/dL Creatinine 2.5 H 0.5-1.0 mg/dL Glomerular Filtration Rate Calc 20 >90 mL/min Random Glucose 236 H 70-105 mg/dL Total Calcium 7.5 L 8.5-10.1 mg/dL Total Bilirubin 0.4 0.2-1.0 mg/dL Aspartate Amino Transf (AST/SGOT) 16 10-37 U/L Alanine Aminotransferase (ALT/SGPT) 6 L 12-78 U/L Alkaline Phosphatase 154 H 50-136 U/L Total Protein 4.4 L 6.0-8.3 g/dL Albumin 0.8 L 3.5-5.0 g/dL Test 01/27/25 11:12 01/27/25 05:16 Range/Units Magnesium Level 2.00 1.80-2.40 mg/dL Immature Granulocyte % (Auto) 1.1 H 0-1 % Neutrophils (%) (Auto) 63.2 40.0-77.0 % Lymphocytes (%) (Auto) 23.9 21.0-51.0 % Monocytes (%) (Auto) 8.2 3.0-13.0 % Eosinophils (%) (Auto) 2.6 0.0-8.0 % Basophils (%) (Auto) 1.0 0.0-5.0 % Neutrophils # (Auto) 6.8 1.8-7.7 K/uL Lymphocytes # (Auto) 2.6 1.0-4.8 K/uL Monocytes # (Auto) 0.9 0.1-1.0 K/uL Eosinophils # (Auto) 0.28 0.00-0.70 K/uL Basophils # (Auto) 0.11 0.00-0.20 K/uL Absolute Immature Granulocyte (auto 0.12 0-1 K/uL Phosphorus Level 3.1 2.5-4.9 mg/dL C-Reactive Protein, Quantitative 223.10 H 0.5-3.0 mg/L PROBLEM LIST : Medical Problems: Unstageable ulcer to coccyx Unstageable ulcer to left buttock PLAN: Wound care for coccyx and left buttock-Cleanse with normal saline, pat dry, apply medihoney, cover with allevyn, change daily and prn Keep wounds clean and dry Offloading/reposition q 2 hours Comorbidities per primary care team Further Management per hospital course. Thank You for the consult and allowing us to participate in the care of this patient. ATTESTATION BY PHYSICIAN I have seen and examined the patient. I reviewed the documentation, medical decision making, and treatment plan as noted by the mid-level provider above. I agree with the findings and plan of care. KRISTIN HERRERA MD, MICHELLE A NP Jan 28, 2025 17:09 KRISTIN HERRERA MD Feb 04, 2025 12:36
[2025-01-28] MEDS: PoTASSium chl 10% ELIXIR 20MEQ 20 MEQ/15 ML UDCUP PO PRN (20:57)
--- NOTE | 2025-01-28 21:13 | PN ---
NEPHROLOGY NOTE SUBJECTIVE: The patient has multiple problems including renal failure, respiratory failure. The patient is hypotensive, on pressors; anemic, and electrolyte problems. The patient is mechanically ventilated, unable to get any other systemic review. She has multiple comorbidities as described. Peripheral vascular disease, right below-knee amputation has been done. The patient is in ICU, critically ill, with multiple other comorbidities as detailed. The patient has GI bleeding, hemorrhagic shock, previous PEG tube placement, peptic ulcer disease, underlying diabetes, hypertension, debility, and other comorbidities. All the other systemic review is unchanged. The patient has been on Protonix, octreotide drip and we are unable to get any other history from the patient. REVIEW OF SYSTEMS: As above multiple review. CONSTITUTIONAL: Intubated, mechanically ventilated, no fever or chills. HEENT: Revealed intubated, mechanically ventilated. RESPIRATORY: Respiratory failure. Multiple electrolyte problems are present. PHYSICAL EXAMINATION: GENERAL: Pale, critically ill, intubated, mechanically ventilated. VITAL SIGNS: Blood pressure is 107/57, pulse 82, respiratory rate is 14. HEENT: Head is atraumatic, normocephalic. Pupils are round and reactive. Sclerae are anicteric. Conjunctivae not pale. Oral mucosa is not dry. NECK: Supple. No masses or bruits. Thyroid is palpable. Neck has no bruits. CHEST: Shows equal thoracic percussion, note being resonant in all areas. CARDIAC: Regular rhythm. No rubs. No S3 or S4. BACK: No tenderness or back deformities. LABORATORY DATA: Labs have been reviewed with low potassium of 2.9, elevated creatinine of 2.5, BUN of 35. IMAGING STUDIES: X-rays reviewed. Old records have been reviewed and imaging studies are personally reviewed. PROBLEMS: 1. The patient has acute renal failure. 2. Multiple electrolyte problems 3. Respiratory failure. 4. Mechanically ventilated. 5. The patient intubated with multiple other comorbidities 6. Hematemesis, gastrointestinal bleeding, hemorrhagic shock 7. Deep vein thrombosis of upper extremities. 8. Below-knee amputation. 9. Diabetes. 10. Other electrolytes problems. PLAN: 1. The patient is in ICU and remains on Protonix. 2. Octreotide. 3. Follow up on mechanical ventilation. 4. Follow up on electrolytes. Intake, output, weight will be monitored. The patient remains on IV phenylephrine drip, sedative, mechanical ventilation. We have reviewed the lab and imaging studies personally. Discussed with other team members and followup labs have been ordered with potassium check and potassium replacement. Overall condition remains guarded, seen several time. I thank you for this patient. CONDITION: Critical, guarded. TID: [id number] RECEIPT: [id number]
[2025-01-28 23:38] LABS: CREATININE 2.5 mg/dL (0.5-1.0); GLOMERULAR FILTR. RATE CALC 20.0 mL/min (>90); GLUCOSE,RANDOM 216.0 mg/dL (70-105); SODIUM SERUM 146.0 mmol/L (136-145); UREA NITROGEN, BLOOD 30.0 mg/dL (7-18)
[2025-01-29] VITALS (100 sets, daily range): BP systolic 66–188; BP diastolic 39–91; PULSE 16–98; RESP 7–83; TEMP 96.2–98.8; O2SAT 99–100
[2025-01-29 05:37] LABS: IMMATURE GRANULOCYTE ABSOLUTE 0.09 K/uL (0-1); NUCLEATED RED BLOOD CELLS 0.5 % (0.0-0.19); PLATELET COUNT (AUTO) 218 K/uL (130-400); RED BLOOD CELL COUNT(AUTO) 2.61 MIL/uL (4.00-5.50); RED CELL DISTRIBUTION WIDTH 18.5 % (11.0-15.5); WHITE BLOOD COUNT (AUTO) 9.4 K/uL (4.8-10.8)
[2025-01-29 05:56] LABS: ASPARTATE AMINOTRANSFERASE 16 U/L (10-37); CREATININE 2.5 mg/dL (0.5-1.0); GLOMERULAR FILTR. RATE CALC 20 mL/min (>90); GLUCOSE,RANDOM 211 mg/dL (70-105); SODIUM SERUM 146 mmol/L (136-145); TOTAL PROTEIN, SERUM 3.9 g/dL (6.0-8.3); UREA NITROGEN, BLOOD 33 mg/dL (7-18)
[2025-01-29 09:29] LABS: ASPARTATE AMINOTRANSFERASE 18.0 U/L (10-37); CREATININE 2.5 mg/dL (0.5-1.0); GLOMERULAR FILTR. RATE CALC 20.0 mL/min (>90); GLUCOSE,RANDOM 194.0 mg/dL (70-105); SODIUM SERUM 147.0 mmol/L (136-145); TOTAL PROTEIN, SERUM 4.2 g/dL (6.0-8.3); UREA NITROGEN, BLOOD 31.0 mg/dL (7-18)
--- NOTE | 2025-01-29 09:32 | PN ---
NEPHROLOGY PROGRESS NOTE Date/Time Patient Seen: Jan 29, 2025 SUBJECTIVE: This is a 70-year-old female with past medical history of diabetes mellitus type 2, hypertension, anemia, history of CVA, history of right below-knee amputation, chronic kidney disease with prior history of dialysis She presented to the hospital secondary to hematemesis. Patient is currently intubated and sedated. Most information was obtained from chart review. bedside nurse, and family due to patient's condition The patient was noted to have black colored vomit at home which started yesterday. She has a history of peptic ulcer disease. She was noted to have elevated BUN/creatinine. Continues to require vasopressors to maintain blood pressure. Continues on antibiotics We are consulted for renal failure Renal function remains elevated Electrolytes show hypokalemia Iron panel was noted,S/p PRBC GI workup is ongoing Imaging studies were noted She continues on antibiotics She was seen in the ICU, intubated, sedation has been discontinued Family at the bedside Condition is critical and guarded REVIEW OF SYSTEMS: Difficult to obtain given status of the patient who remains intubated mechanically ventilated Vital Signs (last 8hr) Date Time Temp Pulse Resp B/P (MAP) Pulse Ox O2 Delivery O2 Flow Rate FiO2 01/29/25 09:09 78 30 01/29/25 08:00 100 Ventilator+ 30 01/29/25 08:00 30 01/29/25 06:55 73 15 115/56 (75) 100 01/29/25 06:45 73 30 01/29/25 06:40 74 14 114/56 (75) 100 01/29/25 06:25 73 14 117/59 (78) 100 01/29/25 06:10 73 17 100/54 (69) 100 01/29/25 05:55 76 14 82/49 (60) 100 01/29/25 05:40 80 15 77/39 (52) 100 01/29/25 05:25 77 14 94/53 (67) 100 01/29/25 05:10 80 14 84/51 (62) 100 01/29/25 04:55 83 14 68/42 (51) 100 01/29/25 04:40 84 15 66/40 (49) 100 01/29/25 04:33 83 15 68/39 (49) 01/29/25 03:55 98.8 77 14 101/50 (67) 100 01/29/25 03:40 78 14 104/54 (71) 100 01/29/25 03:36 30 01/29/25 03:35 100 Ventilator+ 30 01/29/25 03:25 77 14 112/54 (73) 100 01/29/25 03:10 78 14 109/54 (72) 100 01/29/25 02:55 80 14 107/58 (74) 100 01/29/25 02:53 79 30 01/29/25 02:40 79 14 107/52 (70) 100 01/29/25 02:25 80 14 109/55 (73) 100 01/29/25 02:10 82 14 124/59 (80) 100 01/29/25 01:56 80 20 188/91 (123) 100 01/29/25 01:40 75 15 127/62 (83) 100 PHYSICAL EXAM: General: acutely ill, sedated, intubated, and mechanically ventilated HEENT: head is atraumatic, pupils equal and reactive, ET tube in place Neck: supple, no masses, no lymphadenopathy, no thyromegaly, no JVD Lungs: decreased breath sounds bilaterally, symmetrical chest movement Cardio: regular rate, S1 and S2 normal, no rub or gallop Abdomen: soft, non tender, no distension, no organomegaly Extremities: trace edema bilateral lower extremities, no cyanosis or clubbing Skin: no rashes or suspicious lesions Neuro: sedated Current Medications Medications (Trade) Dose Ordered Sig/Arik Route Start Time Stop Time Status Last Admin Dose Admin Albumin Human 50 ml @ 0 mls/hr Q8H6 IV 01/24/25 14:00 01/24/25 22:00 Artificial Tears (Artificial Tears) 1 DROP OR AD Q8H OU 01/23/25 19:30 02/22/25 19:29 01/24/25 12:13 1 DROP Cefepime HCl (MAXipime 2 gm vial) 2 gm Q24H IVPB 01/23/25 12:00 02/02/25 11:59 01/24/25 12:13 2 GM Ceftriaxone Sodium (ROCEphine 1G INJ) 1 gm Q24H IVPB 01/22/25 12:00 01/22/25 16:25 DC 01/22/25 14:18 1 GM Chlorhexidine Gluconate (Peridex) 15 ml TID MM 01/23/25 21:00 02/06/25 20:59 01/24/25 09:15 15 ML Fentanyl Citrate 100 ml @ 2.5 mls/hr PROTOCOL IV 01/22/25 12:00 01/22/25 11:55 DC Fentanyl Citrate 100 ml @ 2.5 mls/hr PROTOCOL IV 01/22/25 12:00 01/29/25 11:59 01/24/25 06:59 2.5 MLS/HR Insulin Human Regular (humuLIN R 100 UNIT/ML 3ML) INSULIN SLIDING SCAL... ACHS SQ 01/22/25 21:00 02/21/25 20:59 01/23/25 12:20 2 UNIT Levetiracetam (kepPRA 500 MG TABLET) 500 mg BID PO 01/22/25 21:00 01/22/25 22:13 DC Levetiracetam 500 mg/Sodium Chloride 100 ml @ 400 mls/hr Q12H9 IV 01/22/25 22:00 02/21/25 21:59 01/24/25 09:17 400 MLS/HR Levothyroxine Sodium (SYNTHroid VIAL 100MCG) 100 mcg SYN IV 01/23/25 06:30 02/22/25 06:29 01/24/25 05:34 100 MCG Linezolid 300 ml @ 150 mls/hr Q12H IV 01/24/25 08:00 02/03/25 07:59 01/24/25 09:15 150 MLS/HR Metronidazole/ Sodium Chloride 100 ml @ 100 mls/hr Q8H6 IVPB 01/22/25 22:00 02/01/25 21:59 01/24/25 05:34 100 MLS/HR Midazolam HCl 50 ml @ 0 mls/hr PROTOCOL IV 01/22/25 12:00 01/29/25 11:59 01/22/25 20:51 1 MLS/HR Norepinephrine 250 ml @ 0 mls/hr PROTOCOL IV 01/22/25 10:00 01/23/25 09:52 DC 01/22/25 14:24 60 MLS/HR Norepinephrine Bitartrate (Norepineph 16 Mg/250ml NS Premix) per protocol PROTOCOL IV 01/23/25 10:00 02/22/25 09:59 01/23/25 23:50 16 MG Octreotide Acetate 1250 mcg/ Sodium Chloride 250 ml @ 0 mls/hr PROTOCOL IV 01/22/25 12:30 01/22/25 12:17 DC Octreotide Acetate 1250 mcg/ Sodium Chloride 250 ml @ 0 mls/hr PROTOCOL IV 01/22/25 12:30 01/24/25 09:23 DC 01/22/25 12:41 5 MLS/HR Pantoprazole Sodium (PROTonix 40MG INJ) 40 mg BID IVP 01/24/25 21:00 02/23/25 20:59 Pantoprazole Sodium 80 mg/ Sodium Chloride 100 ml @ 10 mls/hr Q10H IV 01/22/25 09:00 01/24/25 09:23 DC 01/24/25 09:17 10 MLS/HR Pharmacy Profile Note (Pharmacy Communication) 1 each ONCE MISC 01/22/25 12:00 01/22/25 11:53 DC Pharmacy Profile Note (Pharmacy Communication) 1 each ONCE MISC 01/22/25 12:00 01/22/25 11:53 DC Pharmacy Profile Note (Pharmacy Communication) 1 each ONCE MISC 01/23/25 13:00 01/23/25 13:09 DC Pharmacy Profile Note (Pharmacy Communication) 1 each ONCE MISC 01/24/25 08:00 01/24/25 07:51 DC Sodium Chloride 1,000 ml @ 150 mls/hr Q6H40M IV 01/22/25 12:00 01/23/25 10:56 DC 01/23/25 02:45 150 MLS/HR Sucralfate (Carafate) 1 gm BID PO 01/23/25 21:00 01/23/25 11:41 DC Sucralfate (Carafate) 1 gm TID PO 01/23/25 14:00 02/22/25 20:59 01/24/25 09:15 1 GM Thiamine HCl 100 mg/Sodium Chloride 50 ml @ 100 mls/hr Q24H IV 01/23/25 14:00 01/25/25 14:29 01/23/25 14:05 100 MLS/HR Vancomycin HCl (Vancomycin 750mg) 750 mg Q24H IVPB 01/23/25 17:00 01/23/25 10:56 DC Vancomycin HCl (Vancomycin Protocol) 1 each AD IV 01/22/25 15:00 01/23/25 10:56 DC LABORATORY: [ ] Hematology Labs: Test 01/29/25 05:31 01/28/25 05:16 Range/Units White Blood Count 9.4 4.8-10.8 K/uL Red Blood Count 2.61 L 4.00-5.50 MIL/uL Hemoglobin 7.7 L 12.0-16.0 g/dL Hematocrit 22.0 L 36-48 % Mean Corpuscular Volume 84.3 79-99 fL Mean Corpuscular Hemoglobin 29.5 27.0-33.0 pg Mean Corpuscular Hemoglobin Concent 35.0 32.0-36.0 g/dL Red Cell Distribution Width 18.5 H 11.0-15.5 % Platelet Count 218 130-400 K/uL Mean Platelet Volume 10.8 H 7.5-10.5 fL Immature Granulocyte % (Auto) 1.0 0-1 % Neutrophils (%) (Auto) 66.0 40.0-77.0 % Lymphocytes (%) (Auto) 24.4 21.0-51.0 % Monocytes (%) (Auto) 5.1 3.0-13.0 % Eosinophils (%) (Auto) 2.6 0.0-8.0 % Basophils (%) (Auto) 0.9 0.0-5.0 % Neutrophils # (Auto) 6.2 1.8-7.7 K/uL Lymphocytes # (Auto) 2.3 1.0-4.8 K/uL Monocytes # (Auto) 0.5 0.1-1.0 K/uL Eosinophils # (Auto) 0.24 0.00-0.70 K/uL Basophils # (Auto) 0.08 0.00-0.20 K/uL Absolute Immature Granulocyte (auto 0.09 0-1 K/uL Nucleated Red Blood Cells 0.5 H 0.0-0.19 % Red Blood Cell Morphology See comments Chemistry Labs: Test 01/29/25 08:48 01/29/25 05:40 01/29/25 05:31 Range/Units Sodium Level 147 H 136-145 mmol/L Potassium Level 3.1 L 3.5-5.1 mmol/L Chloride Level 113 H 101-111 mmol/L Carbon Dioxide Level 20 L 21-32 mmol/L Blood Urea Nitrogen 31 H 7-18 mg/dL Creatinine 2.5 H 0.5-1.0 mg/dL Glomerular Filtration Rate Calc 20 >90 mL/min Random Glucose 194 H 70-105 mg/dL Total Calcium 7.1 L 8.5-10.1 mg/dL Total Bilirubin 0.6 0.2-1.0 mg/dL Aspartate Amino Transf (AST/SGOT) 18 10-37 U/L Alanine Aminotransferase (ALT/SGPT) 6 L 12-78 U/L Alkaline Phosphatase 220 H 50-136 U/L Total Protein 4.2 L 6.0-8.3 g/dL Albumin 0.8 L 3.5-5.0 g/dL Whole Blood Glucose 184 H 70-110 MG/DL Magnesium Level 1.70 L 1.80-2.40 mg/dL Coagulation Labs: Test 01/28/25 23:22 01/28/25 05:16 Range/Units Activated Partial Thromboplast Time > 139.0 *H 26.3-35.5 SEC Prothrombin Time 24.3 H 9.6-11.6 SEC Prothromb Time International Ratio 2.51 H 0.85-1.15 DIAGNOSTICS / RADIOLOGY: [facility] [address] [place] [address] IMAGING REPORT Signed PATIENT: JUSTIN KLINE MR#: [id number] : 1955 SEX: F AGE: 70 LOCATION: [facility] ORDER 0834 STATUS: ADM IN REPORT#: [id number] SERVICE 0833 REASON: pp ORDERING PHYSICIAN: RERE BLAIR PROCEDURE: CXR1VW - CHEST 1VW CHEST 1VW REASON: pp COMPARISON: Prior study from 01/26/2025 is available. FINDINGS: Single view of the chest was obtained. Lungs are clear. There is groundglass appearance suggesting of left-sided pleural effusion. Heart size is normal. There is uncoiling atherosclerotic change of thoracic aorta. There is no pulmonary vascular congestion. The endotracheal tube is in satisfactory position. Mediastinum and bony thorax appear unremarkable. IMPRESSION: 1. No evidence of airspace consolidation or pulmonary venous congestion 2. There is suggestion of a left-sided [id number] pleural effusion 3. Endotracheal tube in satisfactory position.. DICTATED BY: RENA MADDOX MD DATE: 01/28/251106 ELECTRONICALLY SIGNED BY: RENA MADDOX MD DATE: 01/28/25 111 PATIENT: JUSTIN KLINE MR#: [id number] : 1955 SEX: F AGE: 70 LOCATION: [facility] ORDER 2300 STATUS: ADM IN REPORT#: [id number] SERVICE 0600 REASON: vented pt ORDERING PHYSICIAN: KARL RODRIGUEZ PROCEDURE: CXR1VW - CHEST 1VW EXAM: XR Chest, 3 Views. CLINICAL HISTORY: 70-year-old female ventilated patient. COMPARISON: Prior exam from 01/25/2025 at 3:39 PM. FINDINGS: LUNGS: Minimal pulmonary congestion, new compared to the prior exam. PLEURAL SPACES: No pleural effusion or pneumothorax. HEART: Moderate cardiomegaly, somewhat more pronounced compared to the prior exam. BONES: No acute osseous abnormality. VASCULATURE: Atherosclerotic aorta. LINES AND TUBES: Endotracheal tube tip at the arminda. Recommendation for withdrawal of 1 to 2 cm. IMPRESSION: 1. Endotracheal tube tip at the arminda. Recommend withdrawal of 1 to 2 cm. 2. Moderate cardiomegaly, somewhat more pronounced compared to the prior exam. 3. Atherosclerotic aorta. 4. Minimal pulmonary congestion, new compared to the prior XR chest from 01/25/2025 at 3:39 PM. /[place] DICTATED BY: TOM SANCHEZ MD DATE: 01/26/252120 ELECTRONICALLY SIGNED BY: TOM SANCHEZ MD DATE: 01/26/252120 PATIENT: JUSTIN KLINE MR#: [id number] : 1955 SEX: F AGE: 70 LOCATION: [facility] ORDER 153 STATUS: ADM IN REPORT#: [id number] SERVICE 1539 REASON: picc placement ORDERING PHYSICIAN: RERE BLAIR PROCEDURE: CXR1VW - CHEST 1VW CHEST 1VW REASON: picc placement COMPARISON: Prior chest radiograph from 01/25/2025 at 1534 is available. FINDINGS: Single view of the chest was obtained. Lungs are clear. Heart size is normal. There is uncoiling atherosclerotic change of thoracic ureter. There is no pulmonary vascular congestion. Mediastinum and bony thorax appear unremarkable. There is a right-sided PIC catheter tip in superior vena cava at the cavoatrial junction. Endotracheal tube is in satisfactory position. IMPRESSION: 1. Support lines are in satisfactory position.. 2. No evidence of airspace consolidation or pulmonary venous congestion. DICTATED BY: RENA MADDOX MD DATE: 01/25/251557 ELECTRONICALLY SIGNED BY: RENA MADDOX MD DATE: 01/25/251603 PATIENT: JUSTIN KLINE MR#: [id number] : 1955 SEX: F AGE: 70 LOCATION: [facility] ORDER 28 STATUS: ADM IN REPORT#: [id number] SERVICE 152 REASON: PICC placement ORDERING PHYSICIAN: RERE BLAIR PROCEDURE: CXR1VW - CHEST 1VW EXAM: XR Chest, 1 View. CLINICAL HISTORY: 70 year old female PICC placement right upper extremity. COMPARISON: None provided. FINDINGS: LUNGS: The lungs are clear. No consolidation. PLEURAL SPACES: No pleural effusion or pneumothorax. HEART: The heart size is enlarged. BONES: No acute osseous abnormality. LINES AND TUBES: PICC line with tip in the SVC. Endotracheal tube with tip in the arminda. VASCULATURE: Atherosclerotic aorta, similar to prior. IMPRESSION: 1. No acute cardiopulmonary pathology. 2. PICC line with tip in the SVC and endotracheal tube with tip in the arminda. /[place] DICTATED BY: TOM SANCHEZ MD DATE: 01/25/252108 ELECTRONICALLY SIGNED BY: TOM SANCHEZ MD DATE: 01/25/252108 PATIENT: JUSTIN KLINE MR#: [id number] : 1955 SEX: F AGE: 70 LOCATION: [facility] ORDER 2300 STATUS: ADM IN REPORT#: [id number] SERVICE 0600 REASON: vented pt ORDERING PHYSICIAN: KARL RODRIGUEZ PROCEDURE: CXR1VW - CHEST 1VW EXAM: XR Chest, 2 Views. CLINICAL HISTORY: 70-year-old female, ventilated. COMPARISON: 01/24/2025. FINDINGS: LUNGS: Atelectasis lung bases. PLEURAL SPACES: Left pleural effusion, similar to prior XR chest from 01/24/2025 at 4:48 am. HEART: The heart size is normal. BONES: No acute osseous abnormality. IMPRESSION: 1. Left pleural effusion, similar to prior XR chest from 01/24/2025 at 4:48 am. 2. Atelectasis lung bases. /[place] DICTATED BY: TOM SANCHEZ MD DATE: 01/25/252038 ELECTRONICALLY SIGNED BY: TOM SANCHEZ MD DATE: 01/25/252038 PATIENT: JUSTIN KLINE MR#: [id number] : 1955 SEX: F AGE: 70 LOCATION: [facility] ORDER 1510 STATUS: ADM IN REPORT#: [id number] SERVICE 1508 REASON: HGB drop, assess for possible GI bleed ORDERING PHYSICIAN: KIRSTEN KRUSE MD PROCEDURE: GIBLEED - NM GI BLOOD LOSS IMAG Examination NM radiolabeled red blood cell study History Gastrointestinal bleeding Technique After IV administration of Tc-99m labeled red autologous blood cells, anterior projection images of the abdomen and pelvis were obtained dynamically for one hour. Findings Following administration of radiolabeled red blood cells, there is normal activity seen in cardiovascular and genitourinary structures, the liver and spleen. There is no evidence for extravasation of radiolabeled red blood cells during the examination. IMPRESSION: No evidence of gastrointestinal hemorrhage during the course of examination acquisition. /[place] DICTATED BY: RADHA BECERRA Jr., MD DATE: 01/25/251457 ELECTRONICALLY SIGNED BY: RADHA BECERRA Jr., MD DATE: 01/25/251457 PATIENT: JUSTIN KLINE MR#: [id number] : 1955 SEX: F AGE: 70 LOCATION: [facility] ORDER 1143 STATUS: ADM IN REPORT#: [id number] SERVICE 1131 REASON: new onset swelling in her arms ORDERING PHYSICIAN: KIRSTEN KRUSE MD PROCEDURE: VENOUS ALCIDES - US VENOUS DOPPLER BILATERAL EXAMINATION: SPECTRAL DOPPLER ULTRASOUND EXAMINATION OF THE BILATERAL UPPER EXTREMITY VEINS. CLINICAL HISTORY: Swelling. COMPARISON: None. TECHNIQUE: Grayscale, color, and spectral Doppler images of the bilateral upper extremity veins are submitted. FINDINGS: Right: The cephalic and brachial veins are patent. These veins show normal flow with physiological changes of phasicity and augmentation. There is thrombosis in the subclavian, axillary, and basilic veins. Left: The internal jugular, subclavian, axillary, basilic, brachial veins are patent. These veins show normal flow with physiological changes of phasicity and augmentation. IMPRESSION: Deep vein thrombosis in the right subclavian and axillary veins. Right basilic vein thrombosis. The windows support engineer informed the patient's nurse at the time of the exam. /[place] DICTATED BY: GOVIND HAYES MD DATE: 01/25/25722 ELECTRONICALLY SIGNED BY: GOVIND HAYES MD DATE: 01/25/25722 PATIENT: JUSTIN KLINE MR#: [id number] : 1955 SEX: F AGE: 70 LOCATION: [facility] ORDER 2300 STATUS: ADM IN REPORT#: [id number] SERVICE 0600 REASON: vented pt ORDERING PHYSICIAN: KARL RODRIGUEZ PROCEDURE: CXR1VW - CHEST 1VW EXAM: CR Chest, 1 View. CLINICAL HISTORY: vented pt COMPARISON: None provided. FINDINGS: LUNGS: Endotracheal tube midline above arminda Slight worsening left lower lobe infiltrate PLEURAL SPACES: No evidence of pleural effusion or pneumothorax. MEDIASTINUM: Cardiac size and mediastinal contours within normal limits. BONES: No acute osseous abnormality. IMPRESSION: 1. Endotracheal tube midline above arminda 2. Slight worsening left lower lobe infiltrate /[place] DICTATED BY: ANA ALSTON MD DATE: 01/24/252109 ELECTRONICALLY SIGNED BY: ANA ALSTON MD DATE: 01/24/252109 PATIENT: JUSTIN KLINE MR#: [id number] : 1955 SEX: F AGE: 70 LOCATION: [facility] ORDER 1301 STATUS: ADM IN REPORT#: [id number] SERVICE 1258 REASON: Decreased renal function ORDERING PHYSICIAN: SAUMYA ANOTNIO PROCEDURE: RENAL - US RENAL SONOGRAM EXAMINATION: ULTRASOUND OF THE RETROPERITONEUM. CLINICAL HISTORY: Decreased renal function. COMPARISON: CT abdomen and pelvis without contrast dated 01/22/2025. TECHNIQUE: Real-time grayscale ultrasound images of the kidneys. FINDINGS: The right kidney is smaller in caliber, and the left kidney is normal in caliber, the right kidney measures 7.4 x 3.9 x 3.1 cm and the left kidney measures 8.2 x 3.0 x 3.3 cm in its craniocaudal, AP, and transverse dimensions respectively. There is normal renal cortical thickness and increased cortical echogenicity. There is no renal calculus or hydronephrosis. The urinary bladder is empty. There is Kamara???s bulb. IMPRESSION: Relatively small right kidney. Increased echogenicity of both the kidneys may reflect renal parenchymal disease. Recommend clinical correlation and with laboratory parameters. Kamara???s bulb is in situ. /[place] DICTATED BY: RADHA BECERRA Jr., MD DATE: 01/23/252300 ELECTRONICALLY SIGNED BY: RADHA BECERRA Jr., MD DATE: 01/23/252300 PATIENT: JUSTIN KLINE MR#: [id number] : 1955 SEX: F AGE: 70 LOCATION: [facility] ORDER 0745 STATUS: ADM IN REPORT#: [id number] SERVICE REASON: intubated,congestion ORDERING PHYSICIAN: KARL RODRIGUEZ PROCEDURE: CXR1VW - CHEST 1VW EXAM: CR Chest, 1 View. CLINICAL HISTORY: intubated,congestion COMPARISON: 01/22 16:55 EDT CR - CHEST 1VW FINDINGS: ET tube 3.7 cm above the arminda. LUNGS: The lungs show no infiltrate or other acute finding. PLEURAL SPACES: No pleural effusion or pneumothorax. MEDIASTINUM: Cardiac size and mediastinal contours within normal limits. BONES: No acute osseous abnormality. IMPRESSION: No acute cardiopulmonary pathology is evident. ET tube 3.7 cm above the arminda. /[place] DICTATED BY: RADHA BECERRA Jr., MD DATE: 01/23/25 1010 ELECTRONICALLY SIGNED BY: RADHA BECERRA Jr., MD DATE: 01/23/251009 PATIENT: JUSTIN KLINE MR#: [id number] : 1955 SEX: F AGE: 70 LOCATION: [facility] ORDER 23 STATUS: ADM IN REPORT#: [id number] SERVICE 22 REASON: NG tube location ORDERING PHYSICIAN: KENA HAWLEY MD PROCEDURE: ABD 1VW - ABD 1VW ADDENDUM REPORT ADDENDUM: Results were shared by telephone at 10:10 pm on 01-22-[address]. /[place] EXAM: CR Abdomen, 1 View. CLINICAL HISTORY: NG tube location COMPARISON: None provided. FINDINGS: BOWEL: The bowel gas pattern is within normal limits. PERITONEUM/SOFT TISSUES: No free air evident. No pathologic appearing calcification. BONES: No acute osseous abnormality. MISCELLANEOUS: No nasogastric tube identified. Gastrostomy tube left upper IMPRESSION: 1. No nasogastric tube identified. 2. Gastrostomy tube left upper quadrant /[place] DICTATED BY: ANA ALSTON MD DATE: 01/22/252210 ELECTRONICALLY SIGNED BY: DATE: EXAM: CR Abdomen, 1 View. CLINICAL HISTORY: NG tube location COMPARISON: None provided. FINDINGS: BOWEL: The bowel gas pattern is within normal limits. PERITONEUM/SOFT TISSUES: No free air evident. No pathologic appearing calcification. BONES: No acute osseous abnormality. MISCELLANEOUS: No nasogastric tube identified. Gastrostomy tube left upper IMPRESSION: 1. No nasogastric tube identified. 2. Gastrostomy tube left upper quadrant /[place] DICTATED BY: ANA ALSTON MD DATE: 01/22/252200 ELECTRONICALLY SIGNED BY: ANA ALSTON MD DATE: 01/22/252200 PATIENT: JUSTIN KLINE MR#: [id number] : 1955 SEX: F AGE: 70 LOCATION: [facility] ORDER 50 STATUS: ADM IN REPORT#: [id number] SERVICE 49 REASON: post intubation CXR ORDERING PHYSICIAN: KARL RODRIGUEZ PROCEDURE: CXR1VW - CHEST 1VW ADDENDUM REPORT ADDENDUM: Results were shared by telephone at 6:33 pm on 01-22-25 and acknowledged by patient's nurse JESSICA Mas. /[place] EXAM: CR Chest, 2 View. CLINICAL HISTORY: post intubation CXR COMPARISON: None provided. FINDINGS: LUNGS: Endotracheal tube appears midline above arminda PLEURAL SPACES: No pleural effusion or pneumothorax. MEDIASTINUM: The cardiomediastinal silhouette is within normal limits. BONES: No acute osseous abnormality. MISCELLANEOUS: Question nasogastric tube in the thoracic inlet. IMPRESSION: 1. Endotracheal tube appears midline above arminda 2. Question nasogastric tube in the thoracic inlet. /[place] DICTATED BY: ANA ALSTON MD DATE: 01/22/251835 ELECTRONICALLY SIGNED BY: DATE: EXAM: CR Chest, 2 View. CLINICAL HISTORY: post intubation CXR COMPARISON: None provided. FINDINGS: LUNGS: Endotracheal tube appears midline above arminda PLEURAL SPACES: No pleural effusion or pneumothorax. MEDIASTINUM: The cardiomediastinal silhouette is within normal limits. BONES: No acute osseous abnormality. MISCELLANEOUS: Question nasogastric tube in the thoracic inlet. IMPRESSION: 1. Endotracheal tube appears midline above arminda 2. Question nasogastric tube in the thoracic inlet. /[place] DICTATED BY: ANA ALSTON MD DATE: 01/22/251821 ELECTRONICALLY SIGNED BY: ANA ALSTON MD DATE: 01/22/251821 PATIENT: JUSTIN KLINE MR#: [id number] : 1955 SEX: F AGE: 70 LOCATION: [facility] ORDER 151 STATUS: ADM IN REPORT#: [id number] SERVICE 1509 REASON: transaminitis rule out CBD dilation/obstruction cholangitis ORDERING PHYSICIAN: KARL RODRIGUEZ PROCEDURE: ABDRUQLTD - US ABDOMINAL RUQ\LTD EXAMINATION: ULTRASOUND OF THE ABDOMEN (LIMITED) WITH COLOR DOPPLER. CLINICAL HISTORY: Transaminitis. To rule out CBD obstruction. COMPARISON: CT abdomen and pelvis without contrast from the same day. TECHNIQUE: Real-time grayscale ultrasound images of the abdomen. In addition, color Doppler is medically necessary to perform in order to evaluate vascularity and blood flow. FINDINGS: Liver: Normal in caliber, the right hepatic lobe measures 15.4 cm in the craniocaudal dimension. There is increased echogenicity of the hepatic parenchyma. There is no focal hepatic abnormality or intrahepatic biliary ductal dilatation. There is normal spectral Doppler of the main portal vein. Gallbladder: Within normal limits with normal wall thickness (0.22 cm). No hyperemia or pericholecystic free fluid. There are few calculi, the largest measure 1.5 cm. Common bile duct is normal in caliber, measuring 0.28 cm. Pancreas: Obscured by overlying bowel gas. The right kidney is normal in caliber, the right kidney measures 8.2 x 3.3 x 2.9 cm in craniocaudal, AP, and transverse dimensions respectively. There is normal renal cortical thickness, and cortical echogenicity. There is no renal calculus or hydronephrosis. IMPRESSION: Hepatic steatosis. Cholelithiasis. No cholecystitis. /[place] DICTATED BY: GOVIND HAYES MD DATE: 01/23/25856 ELECTRONICALLY SIGNED BY: GOVIND HAYES MD DATE: 01/23/25856 PATIENT: JUSTIN KLINE MR#: [id number] : 1955 SEX: F AGE: 70 LOCATION: [facility] ORDER 26 STATUS: ADM IN REPORT#: [id number] SERVICE 122 REASON: PERICARDIAL EFFUSION. Please also assess EF ORDERING PHYSICIAN: KENA HAWLEY MD PROCEDURE: ECHO CMP - ECHO 2-D COMPLETE APPROVED REPORT EXAM: Two-dimensional and M-mode echocardiogram with Doppler and color Doppler. INDICATION ICD: Assess pericardial effusion and ejection fraction 2D Dimensions RVDd 3.0 cm LVEF(%) 49.3 (>50%) LVED Vol(simp.) 20.0 mL IVSd 1.9 (0.7-1.1cm) FS(%) 23 % LVES Vol(simp.) 9.0 mL LVDd 2.4 (3.8-5.6cm) LA (2D) 2.6 (1.6-4.0cm) LVEF(%, simp.) 55 % PWd 2.0 (0.7-1.1cm) Ao Root(2D) 2.7 (2.0-3.7cm) LA ESV INDEX (BP) 22.00 mL/m2 IVSs 2.0 cm LVOT diam 2.0 (1.8-2.4cm) LVDs 1.8 (2.5-4.0cm) IVC diam 1.2 cm PWs 1.7 cm Deformation Strain Apical 4 -7.1 % Apical 2 -6.9 % Apical 3 -10.1 % Global Strain -8.0 % M-Mode Dimensions EPSS 0.8 cm LA (MM) 2.3 (1.6-4.0cm) Ao Root(MM) 2.9 (2.0-3.7cm) Aortic Valve AoV Vmax 2.1 m/s Ao Peak GR 17.0 mmHg LVOT Vmax 2.1 m/s AoV VTI 0.2 m Ao Mean GR 8.4 mmHg LVOT VTI 0.22 m YASMEEN (VMAX) 3.02 cm2 YASMEEN (VTI) 3.6 cm2 Mitral Valve MV E Vmax 51.6 cm/s DECEL Time 82 ms MV A Vmax 69.0 cm/s P 1/2 T 19 ms E/A ratio 0.7 MVA (PHT) 11.9 cm2 TDI E/E' Medial 6.8 E/E' Lateral 9.3 Medial E' Peak V 7.57 cm/s Lateral E' Peak V 5.54 cm/s Pulmonary Valve PV Vmax 1.3 m/s PV VTI 0.14 m PV Mean GR 3.5 mmHg PV Peak GR 6.5 mmHg Tricuspid Valve TR Vmax 1.5 m/s RAP (EST) 3 mmHg RVSP 12.4 mmHg TR Peak GR 9.4 mmHg Left Ventricle Left ventricular cavity is small. GLS -8.0% Severe concentric left ventricular hypertrophy. LVEF is 50-55%. The left ventricular diastolic function is normal. Right Ventricle The right ventricle is normal size. The right ventricular systolic function is normal. Atria The left atrium size is normal. The right atrium is small in size. Aortic Valve The aortic valve is normal in structure. No aortic regurgitation is present. There is no aortic valvular stenosis. Mitral Valve The mitral valve is normal in structure. There is trace of mitral valve regurgitation noted. There is no mitral valve stenosis. Tricuspid Valve The tricuspid valve is normal in structure. There is trace of tricuspid valve regurgitation noted. Pulmonic Valve Pulmonic valve is not well visualized. There is no pulmonic valvular regurgitation. Great Vessels The aortic root is normal in size. The IVC is normal in size and collapses >50% with inspiration. Pericardium There is no pericardial effusion. Other Information Quality : Technically difficult study due to body habitus, pt intubated Rhythm : Tachycardia Conclusion LVEF is 50-55%. Severe concentric left ventricular hypertrophy. The left ventricular diastolic function is normal. There is no pericardial effusion. DICTATED BY: GIULIANA AWAN DO DATE: 01/22/25 1318 ELECTRONICALLY SIGNED BY: GIULIANA AWAN DO DATE: 01/23/25 0743 PATIENT: JUSTIN KLINE MR#: [id number] : 1955 SEX: F AGE: 70 LOCATION: [facility] ORDER 1152 STATUS: ADM IN REPORT#: [id number] SERVICE 1151 REASON: S/P INTUBATION. ET tube position ORDERING PHYSICIAN: KENA HAWLEY MD PROCEDURE: CXR1VW - CHEST 1VW EXAM: CR Chest, 2 View. CLINICAL HISTORY: S/P INTUBATION. ET tube position COMPARISON: Radiograph from January 22 at 8:53 AM FINDINGS: Endotracheal tube terminates 1.4 cm above the arminda. LUNGS: There is no mass, infiltrate, or acute pulmonary abnormality. PLEURAL SPACES: No pleural effusion or pneumothorax. MEDIASTINUM: Cardiac size and mediastinal contours within normal limits. Atherosclerosis of the thoracic aorta. BONES: No acute osseous abnormality. IMPRESSION: 1. Endotracheal tube positioned 1.4 cm above the arminda. 2. No acute cardiopulmonary abnormality. /[place] DICTATED BY: RADHA BECERRA Jr., MD DATE: 01/22/251309 ELECTRONICALLY SIGNED BY: RADHA BECERRA Jr., MD DATE: 01/22/251309 PATIENT: JUSTIN KLINE MR#: [id number] : 1955 SEX: F AGE: 70 LOCATION: [facility] ORDER 8 STATUS: REG REPORT#: [id number] SERVICE REASON: gi bleed ORDERING PHYSICIAN: JULISA PETERSON MD PROCEDURE: ABD PEL WO - CT ABDOMEN/PELVIS W/O CONTRAST CT ABDOMEN/PELVIS W/O CONTRAST REASON: gi bleed COMPARISON: None. FINDINGS: Lung bases are clear. There is a small left-sided pleural effusion. There is coronary calcifications suggesting coronary artery disease. There is suggestion of small pericardial effusion. There is a moderate size hiatal hernia. . There are no focal liver lesions. There are normal-appearing kidneys.. Spleen and pancreas appear unremarkable. The gallbladder appears normal as well. There is a feeding gastrostomy tube in place. Bowel loops appear unremarkable. This includes normal appearance of the appendix . There is fecal stasis in the rectal vault. Abutting the right lobe of the bowel in the right lower quadrant and abutting the right psoas muscle there is a a cystic structure measuring 5.9 x 3.9 cm. There is no evidence of free fluid or intraperitoneal air. There are no focal fluid collections. The retroperitoneum appear normal as do pelvic soft tissue structures. Aorta and iliac vessels demonstrate diffuse atherosclerotic changes. The anterior abdominal wall is intact. Osseous structures appear unremarkable. The uterus is surgically absent. IMPRESSION: 1. No acute process seen in CT of abdomen and pelvis without intravenous contrast 2. In the right adnexal region there is a cystic structure measuring 5.9 x 3.9 cm 3. Fecal stasis impaction seen in the rectal vault CT was performed with one or more following dose reduction techniques: automated exposure control, adjustment of the mA and kv according to patient's size, or use of a iterative reconstruction technique. DICTATED BY: RENA MADDOX MD DATE: 09/27/25 1044 ELECTRONICALLY SIGNED BY: RENA MADDOX MD DATE: 01/22/25 105 PATIENT: JUSTIN KLINE MR#: [id number] : 1955 SEX: F AGE: 70 LOCATION: [facility] ORDER 8 STATUS: REG ER REPORT#: [id number] SERVICE 7 REASON: gi bleed ORDERING PHYSICIAN: JULISA PETERSON MD PROCEDURE: ABD PEL WO - CT ABDOMEN/PELVIS W/O CONTRAST CT ABDOMEN/PELVIS W/O CONTRAST REASON: gi bleed COMPARISON: None. FINDINGS: Lung bases are clear. There is a small left-sided pleural effusion. There is coronary calcifications suggesting coronary artery disease. There is suggestion of small pericardial effusion. There is a moderate size hiatal hernia. . There are no focal liver lesions. There are normal-appearing kidneys.. Spleen and pancreas appear unremarkable. The gallbladder appears normal as well. There is a feeding gastrostomy tube in place. Bowel loops appear unremarkable. This includes normal appearance of the appendix . There is fecal stasis in the rectal vault. Abutting the right lobe of the bowel in the right lower quadrant and abutting the right psoas muscle there is a a cystic structure measuring 5.9 x 3.9 cm. There is no evidence of free fluid or intraperitoneal air. There are no focal fluid collections. The retroperitoneum appear normal as do pelvic soft tissue structures. Aorta and iliac vessels demonstrate diffuse atherosclerotic changes. The anterior abdominal wall is intact. Osseous structures appear unremarkable. The uterus is surgically absent. IMPRESSION: 1. No acute process seen in CT of abdomen and pelvis without intravenous contrast 2. In the right adnexal region there is a cystic structure measuring 5.9 x 3.9 cm 3. Fecal stasis impaction seen in the rectal vault CT was performed with one or more following dose reduction techniques: automated exposure control, adjustment of the mA and kv according to patient's size, or use of a iterative reconstruction technique. DICTATED BY: RENA MADDOX MD DATE: 01/22/251043 ELECTRONICALLY SIGNED BY: RENA MADDOX MD DATE: 01/22/251050 PATIENT: JUSTIN KLINE MR#: [id number] : 1955 SEX: F AGE: 70 LOCATION: [facility] ORDER 9 STATUS: REG ER REPORT#: [id number] SERVICE 7 REASON: cp ORDERING PHYSICIAN: JULISA PETERSON MD PROCEDURE: CXR1VW - CHEST 1VW EXAM: Chest radiograph 1 view HISTORY: Chest pain COMPARISON: None FINDINGS: No pulmonary consolidations. No pleural effusion or pneumothorax. Enlarged cardiac silhouette. Tortuous calcified aorta. No overt congestion. Degenerative changes. IMPRESSION: No acute cardiopulmonary disease. /[place] DICTATED BY: DESTINY CASTELLANOS MD DATE: 01/22/251058 ELECTRONICALLY SIGNED BY: DESTINY CASTELLANOS MD DATE: 01/22/251058 ASSESSMENT: Acute renal failure Anemia Septic shock requiring pressors, POA Acute metabolic encephalopathy POA Acute Hypoxic rep failure requiring intubation for airway protection POA Acute complicated cystitis POA Acute on chronic anemia 2/ GI Bleed (Hematemesis) POA Hyperglycemia in the presence of type 2 diabetes mellitus, POA right adnexal region there is a cystic structure measuring 5.9 x 3.9 cm Thrombocytosis Hypokalemia Electrolyte derangement (hypokalemia, hypocalcemia) severe Hypoalbuminemia Malnutrition Transaminitis Elevated TSH suspected myxedema Uncontrolled type 2 diabetes mellitus Essential hypertension Anemia Prior history of CVA Right ilztz-nvs-nobi amputation G-tube in situ Bed ridden Recent hospitalization [facility] for hematemesis PLAN: Labs, diagnostic, radiologic exams reviewed and interpreted by myself and supervising physician. We have reviewed external records in detail Potassium replacement has been ordered Require close monitoring of renal function and electrolytes Order CBC, CMP, and electrolytes in am Continue with antibiotics Continue mechanical ventilation and sedation Continue with IV pressors Monitor blood pressure adjust medication doses as needed Avoid hypotensive episodes May use Dilaudid 0.5 mg IV every 6 hours as needed for severe pain Monitor blood sugars Strict intake, output, and daily weight should be monitored Please renally adjust medications Avoid nephrotoxic and nonsteroidal drugs Avoid contrast if possible Will continue to monitor renal function, anemia, electrolytes Treatment plan discussed with patient Questions were answered We have discussed with the other team physicians in detail about the care plan We will continue to monitor the patient closely Total critical care time spent with patient, nursing staff, critical care team over 35 minutes ATTESTATION BY PHYSICIAN I have seen and examined the patient. I reviewed the documentation, medical decision making, and treatment plan as noted by the mid-level provider above. I agree with the findings and plan of care. CHRISTELLE SIMENTAL MD, [facility] Jan 29, 2025 09:32
--- NOTE | 2025-01-29 10:15 | HMCIMG ---
CHEST 1VW REASON: intubated COMPARISON: Prior chest radiograph from 01/28/2025 is available. FINDINGS: Single view of the chest was obtained. They demonstrate mild cardiomegaly. There is uncoiling atherosclerotic change of thoracic aorta. The lung hassan demonstrate there is an infiltrate in the left lower lung with left-sided pleural effusion which appears to be worsening. The remaining lung hassan are clear. Endotracheal tube is unchanged in satisfactory position. There is mild elevation of the right hemidiaphragm.. Mediastinum and bony thorax appear unremarkable. The bony thorax demonstrate mild osteopenia.. IMPRESSION: 1. There is infiltrate annual in the left lower lung with left-sided pleural effusion 2. Mild cardiomegaly 3. Endotracheal tube in satisfactory position..
--- NOTE | 2025-01-29 12:07 | PN ---
[facility] PROGRESS NOTE Date Patient Seen: Jan 29, 2025 Time of Visit: 12:05 Supervising Physician: Dr Marshall Rick Primary Care Physician: NANDO HUYNH Outpatient Specialists: [ ] Inpatient Consults: DR RAMOS, DR HEAD, DR SIMENTAL Assessment: Sepsis, with severe septic shock Acute complicated cystitis - ESBL to urine Acute hypoxemic respiratory failure (intubated) Deep vein thrombosis in the right subclavian and axillary veins and Right basilic vein thrombosis. UGIB with hematemesis Acute on chronic anemia 2nd to above Type II diabetes mellitus with hyperglycemia Dysphagia with G-tube Acute on chronic kidney disease INTERVAL HISTORY: Patient seen and examined, all labs and imaging have been reviewed, patient remains intubated, she is opening her eyes but not tracking Patient's white count has improved to 9.4, her hemoglobin down to 7.7 and her platelets at 218, potassium is 3.1 in his being covered, Her chest x-ray reveals a small left pleural effusion She has had approximately 400 out in urine overnight. Vent AC mode 400/30%/peep of 5 She remains on low-dose levo, Heparin drip We have resumed feedings, trickle feedings now we will continue to monitor Nursing reports no acute events overnight. Patient afebrile Plan: Vent management, ABG, chest x-ray , spontaneous breathing trials, when able Following hemoglobin and transfusing as needed Following GI recs Following cultures, antibiotics Heparin drip for DVTs Total critical care time 49 minutes, patient remains critically ill, continues on pressor support aa long of with vent management. REVIEW OF SYSTEMS: Unable to obtain due to patient's intubated PHYSICAL EXAM: GENERAL: Critically ill intubated and sedated. HEENT: Sclera non icteric, dry mucosa NECK: Supple, no JVD, trachea midline LUNGS: Clear breath sounds bilaterally. No wheezes HEART: Regular rate and rhythm. Normal S1 and S2, without murmurs ABD: Abdomen soft, nontender. Bowel sounds present EXT: No clubbing cyanosis or edema, history of right BKA NEURO: Intubated and sedated Vital Signs (last 8hr) Date Time Temp Pulse Resp B/P (MAP) Pulse Ox O2 Delivery O2 Flow Rate FiO2 01/29/25 12:02 76 30 01/29/25 09:15 82 14 103/58 (73) 100 01/29/25 09:09 78 30 01/29/25 09:00 83 14 111/61 (78) 100 01/29/25 08:45 78 14 121/56 (77) 100 01/29/25 08:30 76 18 129/64 (85) 100 01/29/25 08:15 80 14 119/63 (81) 100 01/29/25 08:00 100 Ventilator+ 30 01/29/25 08:00 79 16 115/60 (78) 100 01/29/25 08:00 96.3 01/29/25 08:00 30 01/29/25 07:45 78 14 119/63 (81) 100 01/29/25 07:30 75 14 125/61 (82) 100 01/29/25 07:00 77 14 124/57 (79) 100 01/29/25 06:55 73 15 115/56 (75) 100 01/29/25 06:45 73 30 01/29/25 06:40 74 14 114/56 (75) 100 01/29/25 06:25 73 14 117/59 (78) 100 01/29/25 06:10 73 17 100/54 (69) 100 01/29/25 05:55 76 14 82/49 (60) 100 01/29/25 05:40 80 15 77/39 (52) 100 01/29/25 05:25 77 14 94/53 (67) 100 01/29/25 05:10 80 14 84/51 (62) 100 01/29/25 04:55 83 14 68/42 (51) 100 01/29/25 04:40 84 15 66/40 (49) 100 01/29/25 04:33 83 15 68/39 (49) LABS: Hematology Labs: Test 01/29/25 05:31 01/28/25 05:16 Range/Units White Blood Count 9.4 4.8-10.8 K/uL Red Blood Count 2.61 L 4.00-5.50 MIL/uL Hemoglobin 7.7 L 12.0-16.0 g/dL Hematocrit 22.0 L 36-48 % Mean Corpuscular Volume 84.3 79-99 fL Mean Corpuscular Hemoglobin 29.5 27.0-33.0 pg Mean Corpuscular Hemoglobin Concent 35.0 32.0-36.0 g/dL Red Cell Distribution Width 18.5 H 11.0-15.5 % Platelet Count 218 130-400 K/uL Mean Platelet Volume 10.8 H 7.5-10.5 fL Immature Granulocyte % (Auto) 1.0 0-1 % Neutrophils (%) (Auto) 66.0 40.0-77.0 % Lymphocytes (%) (Auto) 24.4 21.0-51.0 % Monocytes (%) (Auto) 5.1 3.0-13.0 % Eosinophils (%) (Auto) 2.6 0.0-8.0 % Basophils (%) (Auto) 0.9 0.0-5.0 % Neutrophils # (Auto) 6.2 1.8-7.7 K/uL Lymphocytes # (Auto) 2.3 1.0-4.8 K/uL Monocytes # (Auto) 0.5 0.1-1.0 K/uL Eosinophils # (Auto) 0.24 0.00-0.70 K/uL Basophils # (Auto) 0.08 0.00-0.20 K/uL Absolute Immature Granulocyte (auto 0.09 0-1 K/uL Nucleated Red Blood Cells 0.5 H 0.0-0.19 % Red Blood Cell Morphology See comments Chemistry Labs: Test 01/29/25 11:44 01/29/25 08:48 01/29/25 05:31 Range/Units Whole Blood Glucose 167 H 70-110 MG/DL Sodium Level 147 H 136-145 mmol/L Potassium Level 3.1 L 3.5-5.1 mmol/L Chloride Level 113 H 101-111 mmol/L Carbon Dioxide Level 20 L 21-32 mmol/L Blood Urea Nitrogen 31 H 7-18 mg/dL Creatinine 2.5 H 0.5-1.0 mg/dL Glomerular Filtration Rate Calc 20 >90 mL/min Random Glucose 194 H 70-105 mg/dL Total Calcium 7.1 L 8.5-10.1 mg/dL Total Bilirubin 0.6 0.2-1.0 mg/dL Aspartate Amino Transf (AST/SGOT) 18 10-37 U/L Alanine Aminotransferase (ALT/SGPT) 6 L 12-78 U/L Alkaline Phosphatase 220 H 50-136 U/L Total Protein 4.2 L 6.0-8.3 g/dL Albumin 0.8 L 3.5-5.0 g/dL Magnesium Level 1.70 L 1.80-2.40 mg/dL Coagulation Labs: Test 01/29/25 08:48 01/28/25 05:16 Range/Units Activated Partial Thromboplast Time > 139.0 *H 26.3-35.5 SEC Prothrombin Time 24.3 H 9.6-11.6 SEC Prothromb Time International Ratio 2.51 H 0.85-1.15 DIAGNOSTICS / RADIOLOGY RESULTS: [ ] PLAN NEURO: Minimize central acting medications as possible. Fall Precautions. Well lighted room through the day and minimize interruptions through the night to prevent acute delirium. PULMONARY: Supplemental 02 as needed Titrate Fio2 to keep Spo2 > or = 90% DuoNebs and CPT as needed IS hourly while awake for pulmonary hygiene Out of bed to chair as tolerated VAP Bundle Vent/BIPAP Settings: Assist-control volume control tidal volume of 400 respiratory rate of 18 FiO2 of 50% and PEEP of five. Maintain plateau pressure less than 30 CARDIOVASCULAR: Follow hemodynamics. Titrate vasopressor to keep MAP >65 or systolic blood pressure >95mmHg Drips: Fentanyl Versed Levophed Vasopressin Protonix Sandostatin LINES: Right femoral central line PICC line pending GI & NUTRITION: Continue nutritional support Aspirations precautions Prokinetic agents and laxatives as needed KIDNEYS & ELECTROLYTES: Strict monitoring of intake and output Daily weights Avoid nephrotoxic agents Monitor electrolytes and replace as needed Goal urine output of 30mL/hr or 0.5mL/kg/hr Urine output: [ ] Fluid Balance: [ ] ENDOCRINE: Maintain blood glucose between 100-180 at all times. Insulin sliding scale for blood glucose management INFECTIOUS DISEASE: Trend temperature. Leonard-culture if febrile. Micro: [ ] follow urine culture blood culture neg Antibiotics: [ ] cefepime flagyl zyvox HEMATOLOGY & COAGULATION: Monitor H&H. Keep Hgb > 7 Transfuse 1 unit of PRBC for Hgb < 7 Transfuse 1 pack of platelets of platelets < 20, 000 Watch for any signs and symptoms of bleeding SKIN: Pressure ulcer prevention per facility protocol Rehab: PT/OT Prophylaxis: GI: Protonix 40 mg b.i.d. DVT: SCDs avoid anticoagulants due to hematemesis Code Status: Full Resuscitation Disposition: [ ICU Case was discussed and seen with my supervising physician. The above plan was formulated and agreed upon. RERE BLAIR Jan 29, 2025 12:07
--- NOTE | 2025-01-29 14:00 | NUR ---
DR. SIMENTAL ROUND ON PATIENT, KEEP PATIENT POTASSIUM ABOVE 3.0 GOAL
--- NOTE | 2025-01-29 15:06 | PN ---
[facility] PROGRESS NOTE Date of Service: Jan 29, 2025 Time of Service: 15:03 SUBJECTIVE: 70-year-old female with past medical history of diabetes mellitus type 2, hypertension, anemia, history of CVA, history of right below-knee amputation who presented to the hospital secondary to hematemesis. Patient is currently intubated and sedated. The patient's history is mostly obtained from patient's who is present at bedside and from ED provider. The patient was noted to have black colored vomit at home which started yesterday. She has a history of peptic ulcer disease. She also has a PEG tube placed around two weeks ago. Peg tube was placed in [facility]. Per patient is able to swallow better now. denied any fever, chills, shortness for breath, chest pain. History is fairly limited at this time as patient is not able to participate in conversation. Labs were Notable for white count of 9.1, hemoglobin was 9.1, MCV was 86.7, platelet count was 456 K, sodium was 138, potassium was 3.1, bicarb was , creatinine was 1.7, glucose was 234, alk-phos was 153, total protein was 5.0, albumin was 0.9, lipase was negative normal Underwent a CT abdomen pelvis which showed no acute process in the CT abdomen without IV contrast. Patient was noted to have cystic structure in the right adrenal region measuring 5.9 x 3.9 cm. The patient also had fecal impaction noted. In the ED patient had episode of hematemesis and she was intubated for airway protection by ED provider. 01/23/2025: The patient is examined at the bedside. She was sedated and not responsive during my visit. GI performed EGD in the morning and they have observed no active bleeding. Nurse notified an unstageable wound on sacrum for which Wound consult is placed today. We will be manage as per critical Care recommendations. 01/24/2025: The patient is examined at the bedside. She was sedated and not responsive during my visit. Her arms are swollen. Her vitals are normal except for blood pressure is 97/51. Her labs are in the normal range except for Hb is 6.6, chloride is 113, BUN is 39, creatinine is 2.4, iron is 28, TIBC is 44, % saturation is 63.6, TSH is 7.62. Her urine culture grew 10,000-50,000 CFU. Identification and susceptibility are in process. Blood culture show no growth after 48 hours. Renal ultrasound show renal parenchymal disease. As her hemoglobin is low she received a blood transfusion. After the transfusion her hemoglobin is 7.1. We ordered a bilateral upper limb doppler which showed evidence of DVT. Gastroenterology was consulted to give recommendations on starting anticoagulation. GI recommended high dose Protonix drip for 48 hours and carafate 1gm PO QID, after 48 hours start heparin drip. IR was called to ask about the option of placing an SVC filter, and they recommended mechanical thrombectomy. The patient is not a good candidate for an SVC filter. A urinalysis, urine electrolytes, urine protein were ordered today. Urinalysis showed turbid urine, protein >300, ketones 5, moderate occult blood, moderate leukocyte esterase, RBC 6 to 10, WBC is TNTC, protein 410.9, sodium is 43, potassium is 36, chloride is 40. 01/25/2025: The patient is examined at the bedside. She was sedated and not responsive during my visit. Her arms are swollen. Her vitals are normal. Her labs are in the normal range except for Hb is 5.9, WBC is 11.2, Cl is 112, potassium is 3.2, CO2 is 19, BUN is 40 creatinine is 2.6. As her hemoglobin is low we gave a t ransfusion and the repeat Hb is 7.4. Gastroenterology will do EGD and colonoscopy tomorrow morning. Hematology is consulted and they recommended same management. Wound care recommended to cleanse with normal saline, pat dry, apply medihoney, cover with allevyn, change daily and prnKeep wounds clean and dry , Offloading/reposition q 2 hours. Bleeding scan showed no evidence of gastrointestinal hemorrhage. 01/26/2025: The patient is examined at the bedside. She was sedated and not responsive during my visit. Her arms are swollen. Her vitals are normal except for blood pressure which is 96/45. Her labs are in the normal range except for Hb is 8.7, K is 2.8, Cl is 112, CO2 is 19, BUN is 37, creatinine is 2.5, Albumin is 1.1. She is scheduled for an EGD and colonoscopy today. We replaced the potassium and the repeat potassium levels are 2.8 and 3.1. 01/27/2025: Patient is examined at the bedside. She was sedated and not responsive during my visit. Her arms are swollen. Her vitals are normal except for blood pressure which is 94/49. Her labs are in the normal range except for hemoglobin is 8.7, potassium is 2.9, chloride is 112, BUN is 33, creatinine is 2.5, albumin is 1, CRP is 223.1. Urine culture showed ESBL which is sensitive to Zosyn, meropenem and levofloxacin. She underwent endoscopy and colonoscopy yesterday which showed no evidence of bleeding. Gastroenterology recommended to follow within 1 week after discharge. Chest x-ray showed minimal pulmonary congestion. The nurse told us that she will try waking up the patient, extubate her and try spontaneous breathing trial. 01/28/2025: Patient is seen and examined at the bedside. She was sedated and not responsive during my visit. Her vital signs are in the normal range except for blood pressure is 97/55. Labs are in the normal range except for hemoglobin is 8.3, WBCs 12.9, potassium is 3.2, chloride is 100, bicarb is 16, BUN is 33, creatinine is 2.5, glucose is 181, ALP is 154. Yesterday the nurse tried to extubate her but she could not extubate as she is not waking up and she can't not protect her airway. She is currently on heparin drip. Critical care stopped her Protonix drip as she is fluid overloaded and they started protonix 40 mg b.i.d. We will continue to follow recommendations from critical Care and Gastroenterology. 01/29/2025: Patient is seen and examined at the bedside. She was sedated and not responsive during my visit. Her vital signs are in the normal range except for blood pressure is 90/48. Labs are in the normal range except for hemoglobin 7.7, potassium 2.9, sodium 146, chloride 113, bicarbonate 20, BUN 33, creatinine 2.5. Chest x-ray showed that there is an infiltrate in the left lower lung with a left-sided pleural effusion. She is currently on heparin drip and Protonix 40 mg b.i.d. We will continue to follow recommendations from critical Care and Gastroenterology. REVIEW OF SYSTEMS Unable to obtain as patient is sedated PHYSICAL EXAM GENERAL APPEARANCE: He is currently intubated and sedated NEUROLOGICAL: Cranial nerves II-XII grossly intact. Motor is 5/5 in bilateral upper and lower extremities proximal to distal. No sensory deficits. HEENT: Face is symmetric. Pupils are equal and reactive. Extraocular movements are intact. NECK: Supple. No JVD. No thyromegaly. No submental, submandibular, pre- /postauricular, occipital or supraclavicular lymphadenopathy. CHEST: Normal chest expansion. No Telemetry. LUNGS: Absence of any rales, rhonchi or any wheezing. CARDIOVASCULAR: Regular. S1 and S2 normal. No appreciable rubs, murmurs or gallops. ABDOMEN: Soft, nontender, and nondistended. There is no rebound, voluntary guarding, or rigidity. Patient has a PEG tube in place : Deferred. No Kamara. EXTREMITIES: Below-knee amputation of the right lower extremity SKIN: No skin breakdown. Vital Signs (last 8hr) Date Time Temp Pulse Resp B/P (MAP) Pulse Ox O2 Delivery O2 Flow Rate FiO2 01/29/25 14:15 81 14 90/48 (62) 100 01/29/25 14:00 79 14 88/47 (61) 100 01/29/25 13:45 80 14 92/50 (64) 100 01/29/25 13:30 81 14 89/48 (62) 100 01/29/25 13:15 80 14 86/50 (62) 100 01/29/25 13:00 79 14 94/48 (63) 100 01/29/25 12:45 78 14 103/55 (71) 100 01/29/25 12:15 80 14 107/56 (73) 100 01/29/25 12:02 76 30 01/29/25 12:00 97.0 01/29/25 12:00 79 14 104/51 (68) 100 01/29/25 12:00 30 01/29/25 12:00 100 Ventilator+ 30 01/29/25 11:45 76 14 98/51 (67) 100 01/29/25 11:30 78 15 107/70 (82) 100 01/29/25 11:15 76 15 122/67 (85) 100 01/29/25 11:00 75 21 118/60 (79) 100 01/29/25 10:45 76 16 120/68 (85) 100 01/29/25 10:30 74 14 119/65 (83) 100 01/29/25 10:15 75 14 111/61 (78) 100 01/29/25 10:00 76 14 125/65 (85) 100 01/29/25 09:45 75 14 102/54 (70) 100 01/29/25 09:30 77 14 102/59 (73) 100 01/29/25 09:15 82 14 103/58 (73) 100 01/29/25 09:09 78 30 01/29/25 09:00 83 14 111/61 (78) 100 01/29/25 08:45 78 14 121/56 (77) 100 01/29/25 08:30 76 18 129/64 (85) 100 01/29/25 08:15 80 14 119/63 (81) 100 01/29/25 08:00 100 Ventilator+ 30 01/29/25 08:00 79 16 115/60 (78) 100 01/29/25 08:00 96.3 01/29/25 08:00 30 01/29/25 07:45 78 14 119/63 (81) 100 01/29/25 07:30 75 14 125/61 (82) 100 LABS: Laboratory: Test 01/29/25 11:44 01/29/25 08:48 01/29/25 05:31 01/28/25 09:07 Range/Units Whole Blood Glucose 167 H 70-110 MG/DL Activated Partial Thromboplast Time > 139.0 *H 26.3-35.5 SEC Sodium Level 147 H 136-145 mmol/L Potassium Level 3.1 L 3.5-5.1 mmol/L Chloride Level 113 H 101-111 mmol/L Carbon Dioxide Level 20 L 21-32 mmol/L Blood Urea Nitrogen 31 H 7-18 mg/dL Creatinine 2.5 H 0.5-1.0 mg/dL Glomerular Filtration Rate Calc 20 >90 mL/min Random Glucose 194 H 70-105 mg/dL Total Calcium 7.1 L 8.5-10.1 mg/dL Total Bilirubin 0.6 0.2-1.0 mg/dL Aspartate Amino Transf (AST/SGOT) 18 10-37 U/L Alanine Aminotransferase (ALT/SGPT) 6 L 12-78 U/L Alkaline Phosphatase 220 H 50-136 U/L Total Protein 4.2 L 6.0-8.3 g/dL Albumin 0.8 L 3.5-5.0 g/dL White Blood Count 9.4 4.8-10.8 K/uL Red Blood Count 2.61 L 4.00-5.50 MIL/uL Hemoglobin 7.7 L 12.0-16.0 g/dL Hematocrit 22.0 L 36-48 % Mean Corpuscular Volume 84.3 79-99 fL Mean Corpuscular Hemoglobin 29.5 27.0-33.0 pg Mean Corpuscular Hemoglobin Concent 35.0 32.0-36.0 g/dL Red Cell Distribution Width 18.5 H 11.0-15.5 % Platelet Count 218 130-400 K/uL Mean Platelet Volume 10.8 H 7.5-10.5 fL Immature Granulocyte % (Auto) 1.0 0-1 % Neutrophils (%) (Auto) 66.0 40.0-77.0 % Lymphocytes (%) (Auto) 24.4 21.0-51.0 % Monocytes (%) (Auto) 5.1 3.0-13.0 % Eosinophils (%) (Auto) 2.6 0.0-8.0 % Basophils (%) (Auto) 0.9 0.0-5.0 % Neutrophils # (Auto) 6.2 1.8-7.7 K/uL Lymphocytes # (Auto) 2.3 1.0-4.8 K/uL Monocytes # (Auto) 0.5 0.1-1.0 K/uL Eosinophils # (Auto) 0.24 0.00-0.70 K/uL Basophils # (Auto) 0.08 0.00-0.20 K/uL Absolute Immature Granulocyte (auto 0.09 0-1 K/uL Nucleated Red Blood Cells 0.5 H 0.0-0.19 % Magnesium Level 1.70 L 1.80-2.40 mg/dL Blood Gas Specimen Type Arterial Arterial Blood pH 7.363 7.350-7.450 Arterial Blood Partial Pressure CO2 29 L 32-45 mmHg Arterial Blood Partial Pressure O2 120.6 H 83.0-108.0 mmHg Arterial Blood HCO3 16.0 L 21.0-28.0 mmol/L Arterial Blood Oxygen Saturation 98.3 H 94.0-98.0 % Arterial Blood Base Excess -7.8 L -2.0-3.0 mmol/L Blood Gas Temperature 37.0 35.5-37.0 CELSIUS Blood Gas Respiration Rate 14.0 min. Blood Gas Vent Mode AC ROOM AIR FiO2 30.0 % Blood Gas Tidal Volume 400 ml Blood Gas PEEP 5 cm H2O Blood Gas Specimen Comment LR TONY NUNES Test 01/28/25 05:16 Range/Units Red Blood Cell Morphology See comments Prothrombin Time 24.3 H 9.6-11.6 SEC Prothromb Time International Ratio 2.51 H 0.85-1.15 Current Medications Medications (Trade) Dose Ordered Sig/Arik Route PRN Reason Start Time Stop Time Status Last Admin Dose Admin Albumin Human 50 ml @ 0 mls/hr Q8H6 IV 01/24/25 14:00 01/24/25 22:00 DC 01/24/25 20:45 1,200 MLS/HR Artificial Tears (Artificial Tears) 1 DROP OR AD Q8H OU 01/23/25 19:30 02/22/25 19:29 01/29/25 12:00 1 DROP Bumetanide (Bumex 1mg Vial) 1 mg ONCE PRN IVP AFTER TRANSFUSION 01/24/25 08:00 01/24/25 09:23 DC Bumetanide (Bumex 1mg Vial) 2 mg ONCE PRN IVP AFTER TRANSFUSION 01/24/25 14:00 01/24/25 14:00 DC 01/24/25 13:28 2 MG Cefepime HCl (MAXipime 2 gm vial) 2 gm Q24H IVPB 01/23/25 12:00 01/26/25 12:05 DC 01/26/25 11:38 2 GM Ceftriaxone Sodium (ROCEphine 1G INJ) 1 gm Q24H IVPB 01/22/25 12:00 01/22/25 16:25 DC 01/22/25 14:18 1 GM Chlorhexidine Gluconate (Peridex) 15 ml TID MM 01/23/25 21:00 02/06/25 20:59 01/29/25 14:30 15 ML Dexmedetomidine/ Sodium Chloride (PRECEdex 400MCG/ 100ML-NS) 400 mcg PROTOCOL IV 01/27/25 15:30 02/26/25 15:29 Dextrose (D50w) 50 ml AD PRN IV HYPOGLYCEMIA PROTOCOL 01/22/25 15:30 02/21/25 15:29 Fentanyl Citrate 100 ml @ 2.5 mls/hr PROTOCOL IV 01/22/25 12:00 01/22/25 11:55 DC Fentanyl Citrate 100 ml @ 2.5 mls/hr PROTOCOL IV 01/22/25 12:00 01/27/25 15:35 DC 01/27/25 05:34 2.5 MLS/HR Glucagon (Glucagon 1mg Kit) 1 mg AD PRN IM HYPOGLYCEMIA PROTOCOL 01/22/25 15:30 02/21/25 15:29 Heparin Sodium (Porcine) (HEParin 5,000 UNIT VIAL) *calculation based on ACTUAL B... AD PRN IV HEPARIN PROTOCOL 01/27/25 16:30 02/26/25 16:29 Heparin Sodium/ Dextrose 250 ml @ 0 mls/hr Q6H IV 01/27/25 16:30 02/26/25 16:29 01/28/25 12:38 11.39 MLS/HR Insulin Human Regular (humuLIN R 100 UNIT/ML 3ML) INSULIN SLIDING SCAL... ACHS SQ 01/22/25 21:00 01/25/25 20:51 DC 01/25/25 16:29 3 UNIT Insulin Human Regular (humuLIN R 100 UNIT/ML 3ML) INSULIN SLIDING SCAL... Q6H6 SQ 01/26/25 10:00 02/25/25 09:59 01/29/25 05:43 2 UNIT Leptospermum Honey ([facility]) 1 APPLICATION DAILY TP 01/26/25 09:00 02/25/25 08:59 01/29/25 08:37 1 APPL Levetiracetam (kepPRA 500 MG TABLET) 500 mg BID PO 01/22/25 21:00 01/22/25 22:13 DC Levetiracetam 500 mg/Sodium Chloride 100 ml @ 400 mls/hr Q12H9 IV 01/22/25 22:00 02/21/25 21:59 01/29/25 08:35 400 MLS/HR Levothyroxine Sodium (SYNTHroid VIAL 100MCG) 100 mcg SYN IV 01/23/25 06:30 02/22/25 06:29 01/29/25 05:38 100 MCG Linezolid 300 ml @ 150 mls/hr Q12H IV 01/24/25 08:00 02/03/25 07:59 01/29/25 08:36 150 MLS/HR Magnesium Sulfate 50 ml @ 0 mls/hr PROTOCOL PRN IV Hypomagnesemia 01/22/25 15:30 02/21/25 15:29 01/29/25 08:35 25 MLS/HR Metronidazole/ Sodium Chloride 100 ml @ 100 mls/hr Q8H6 IVPB 01/22/25 22:00 01/26/25 12:05 DC 01/26/25 06:13 100 MLS/HR Midazolam HCl 50 ml @ 0 mls/hr PROTOCOL IV 01/22/25 12:00 01/27/25 15:35 DC 01/27/25 09:10 5 MLS/HR Norepinephrine 250 ml @ 0 mls/hr PROTOCOL IV 01/22/25 10:00 01/23/25 09:52 DC 01/22/25 14:24 60 MLS/HR Norepinephrine Bitartrate (Norepineph 16 Mg/250ml NS Premix) per protocol PROTOCOL IV 01/23/25 10:00 02/22/25 09:59 01/28/25 17:15 16 MG Octreotide Acetate 1250 mcg/ Sodium Chloride 250 ml @ 0 mls/hr PROTOCOL IV 01/22/25 12:30 01/22/25 12:17 DC Octreotide Acetate 1250 mcg/ Sodium Chloride 250 ml @ 0 mls/hr PROTOCOL IV 01/22/25 12:30 01/24/25 09:23 DC 01/22/25 12:41 5 MLS/HR Pantoprazole Sodium (PROTonix 40MG INJ) 40 mg BID IVP 01/24/25 21:00 01/24/25 15:02 DC Pantoprazole Sodium (PROTonix 40MG INJ) 40 mg BID IVP 01/28/25 21:00 02/27/25 20:59 01/29/25 08:34 40 MG Pantoprazole Sodium 80 mg/ Sodium Chloride 100 ml @ 10 mls/hr Q10H IV 01/22/25 09:00 01/24/25 09:23 DC 01/24/25 09:17 10 MLS/HR Pantoprazole Sodium 80 mg/ Sodium Chloride 100 ml @ 10 mls/hr Q10H IV 01/24/25 15:00 01/28/25 13:39 DC 01/28/25 00:06 10 MLS/HR Pharmacy Profile Note (Pharmacy Communication) 1 each ONCE MISC 01/22/25 12:00 01/22/25 11:53 DC Pharmacy Profile Note (Pharmacy Communication) 1 each ONCE MISC 01/22/25 12:00 01/22/25 11:53 DC Pharmacy Profile Note (Pharmacy Communication) 1 each ONCE MISC 01/23/25 13:00 01/23/25 13:09 DC Pharmacy Profile Note (Pharmacy Communication) 1 each ONCE MISC 01/24/25 08:00 01/24/25 07:51 DC Phenylephrine HCl 100 mg/Sodium Chloride 250 ml @ 0 mls/hr AD PRN IV TITRATE 01/22/25 17:00 02/21/25 16:59 01/23/25 09:30 0 MLS/HR Piperacillin Sod/ Tazobactam Sod (Zosyn 3.375gm+NS 50ml) 3.375 gm Q8H IV 01/26/25 12:30 02/05/25 12:29 01/29/25 14:30 3.375 GM Potassium Chloride 100 ml @ 50 mls/hr AD PRN IV POTASSIUM PROTOCOL 01/22/25 15:30 01/24/25 07:50 DC Potassium Chloride 100 ml @ 100 mls/hr AD PRN IV POTASSIUM PROTOCOL 01/22/25 15:30 02/21/25 15:29 01/27/25 12:44 100 MLS/HR Potassium Chloride (K-Dur/Klor-Con 20meq) 20 meq AD PRN PO POTASSIUM PROTOCOL 01/22/25 15:30 02/21/25 15:29 01/26/25 06:19 20 MEQ Potassium Chloride (KCl 10% Elixir 20meq/15ml) 20 meq AD PRN PO POTASSIUM PROTOCOL 01/22/25 15:30 02/21/25 15:29 01/29/25 08:35 20 MEQ Propofol (DIPRivan 1000MG/ 100ML) 1,000 mg PROTOCOL PRN IV SEDATION 01/22/25 12:00 01/22/25 11:55 DC Sodium Bicarbonate (Sodium Bicarbonate) 650 mg BID PO 01/24/25 21:00 02/23/25 20:59 01/29/25 08:35 650 MG Sodium Chloride 1,000 ml @ 150 mls/hr Q6H40M IV 01/22/25 12:00 01/23/25 10:56 DC 01/23/25 02:45 150 MLS/HR Sucralfate (Carafate) 1 gm BID PO 01/23/25 21:00 01/23/25 11:41 DC Sucralfate (Carafate) 1 gm QID PO 01/24/25 17:00 02/23/25 16:59 01/29/25 14:30 1 GM Sucralfate (Carafate) 1 gm TID PO 01/23/25 14:00 01/24/25 15:02 DC 01/24/25 13:28 1 GM Thiamine HCl 100 mg/Sodium Chloride 50 ml @ 100 mls/hr Q24H IV 01/23/25 14:00 01/25/25 14:29 DC 01/25/25 13:53 100 MLS/HR Vancomycin HCl (Vancomycin 750mg) 750 mg Q24H IVPB 01/23/25 17:00 01/23/25 10:56 DC Vancomycin HCl (Vancomycin Protocol) 1 each AD IV 01/22/25 15:00 01/23/25 10:56 DC Vasopressin 40 units/Sodium Chloride 40 ml @ 0 mls/hr PROTOCOL IV 01/25/25 09:30 02/24/25 09:29 Wound Care/ Dressing Products (Venelex Ointment) BID TP 01/25/25 21:00 01/25/25 15:58 DC DIAGNOSTICS / RADIOLOGY: [place] [address] IMAGING REPORT Signed PATIENT: JUSTIN KLINE MR#: [id number] : 1955 SEX: F AGE: 70 LOCATION: 2CH ORDER 0 STATUS: ADM IN REPORT#: [id number] SERVICE 9 REASON: intubated ORDERING PHYSICIAN: MISTI DAY APRN PROCEDURE: CXR1VW - CHEST 1VW CHEST 1VW REASON: intubated COMPARISON: Prior chest radiograph from 01/28/2025 is available. FINDINGS: Single view of the chest was obtained. They demonstrate mild cardiomegaly. There is uncoiling atherosclerotic change of thoracic aorta. The lung hassan demonstrate there is an infiltrate in the left lower lung with left-sided pleural effusion which appears to be worsening. The remaining lung hassan are clear. Endotracheal tube is unchanged in satisfactory position. There is mild elevation of the right hemidiaphragm.. Mediastinum and bony thorax appear unremarkable. The bony thorax demonstrate mild osteopenia.. IMPRESSION: 1. There is infiltrate annual in the left lower lung with left-sided pleural effusion 2. Mild cardiomegaly 3. Endotracheal tube in satisfactory position.. DICTATED BY: RENA MADDOX MD DATE: 01/29/25 1011 ELECTRONICALLY SIGNED BY: RENA MADDOX MD DATE: 01/29/25 1015 ASSESSMENT: Hematemesis POA Hemorrhagic shock Acute hypoxic respiratory failure status post intubation for airway protection Peg tube placement Peptic ulcer disease DVT of bilateral upper limbs Starvation ketoacidosis Hypokalemia Unstageable wound on sacrum Fecal impaction Obesity BMI 36.6 fecal impaction Knee injury versus underlying CKD Diabetes mellitus type 2 with associated hyperglycemia Severe hypoalbuminemia Hypertension Debility Small pericardial Effusion Left-sided pleural effusion PLAN: Hematemesis, peptic ulcer disease, POA - patient to be admitted to ICU -in reference to hematemesis. We will check H&H q.4 hours. Patient to have type and screen. If hemoglobin is less than seven. Patient will be receiving blood transfusion. - The patient will continue on Protonix drip and octreotide drip. - EGD done by Gastroenterology and have reported no active bleeding and clots in esophagus. - On 01/25/2025 her hemoglobin is 5.9, we gave 1 PRBC. Repeat Hb is 7.4. -GI wanted to do another EGD and colonoscopy showed no evidence of bleeding. -Bleeding scan showed no evidence of gastrointestinal hemorrhage. -gastroenterology recommended follow with them in 1 week after discharge. - Today her hemoglobin is 7.7 -Critical care stopped her Protonix drip as she is fluid overloaded and they started protonix 40 mg b.i.d. -We will continue to follow recommendations from critical Care and G astroenterology. Acute hypoxic respiratory failure status post intubation for airway protection - critical care is on board and we will follow critical care recommendations regarding ventilator and sedation protocol - currently on ACVC, TV 400, RR 18, Fio2 50%, PEEP 5. -On 01/27/2025, nurse told us that she will try to wake up the patient, extubate her and try spontaneous breathing trial. -The nurse tried to extubate her but she could not extubate as she is not waking up and she can't not protect her airway. Hemorrhagic shock - patient currently on phenylephrine drip - weaned off Levophed - continuing midazolam, fentanyl currently. - we will follow critical Care recommendations in managing hemorrhagic shock DVT of bilateral upper limbs -US doppler of both upper limbs, results showed evidence of DVT. -Consulted gastroenterology for anticoagulation recommendations. They recommended to give high dose Protonix drip for 48 hours and carafate 1gm PO QID and after 48 hours start heparin drip. -Patient is not a candidate for SVC filter. -She is currently on heparin drip. Starvation ketoacidosis Today her blood work show that sodium is 146, potassium is 2.9, chloride is 113, bicarbonate is 20. Anion gap is 10. Her urinalysis showed ketones in the urine. Unstageable wound on sacrum - we will request wound care -Wound care recommended to cleanse with normal saline, pat dry, apply medihoney, cover with allevyn, change daily and prnKeep wounds clean and dry , Offloading/reposition q 2 hours Hypokalemia Today her blood work showed that potassium is 2.9. We replaced the potassium. Potassium level after replacement is 3.1. Will repeat her labs tomorrow. Diabetes mellitus type 2 with associated hyperglycemia, Severe hypoalbuminemia, Hypertension, Debility, Small pericardial Effusion, Left-sided pleural effusion - echo showed no pericardial effusion, LVEF of 50-55% - continue insulin sliding scale - continue thiamine supplementation - Continue patient on cefepime, metronidazole for broad coverage - monitor vitals Q8 - monitor a.m. labs - nephrology was consulted and they have recommended to discontinue vancomycin, obtain urine analysis and complete renal ultrasound. -Repeated urinalysis, urine electrolytes, urine protein on 01/24/2025. Urinalysis showed turbid urine, protein >300, ketones 5, moderate occult blood, moderate leukocyte esterase, RBC 6 to 10, WBC is TNTC, protein 410.9, sodium is 43, potassium is 36, chloride is 40. - We also albumin. GI prophylaxis: Pantoprazole ATTESTATION BY PHYSICIAN I have seen and examined the patient. I reviewed the documentation, medical decision making, and treatment plan as noted by the resident provider above. I agree with the findings and plan of care. Saul Bales IV, MD, AKSHAY MD Jan 29, 2025 15:06
[2025-01-30] VITALS (105 sets, daily range): BP systolic 82–144; BP diastolic 48–77; PULSE 84–103; RESP 11–32; TEMP 97.1–98.2; O2SAT 100
[2025-01-30 03:40] LABS: IMMATURE GRANULOCYTE ABSOLUTE 0.10 K/uL (0-1); NUCLEATED RED BLOOD CELLS 0.5 % (0.0-0.19); PLATELET COUNT (AUTO) 267 K/uL (130-400); RED BLOOD CELL COUNT(AUTO) 2.75 MIL/uL (4.00-5.50); RED CELL DISTRIBUTION WIDTH 19.5 % (11.0-15.5); WHITE BLOOD COUNT (AUTO) 8.4 K/uL (4.8-10.8)
[2025-01-30 04:09] LABS: ASPARTATE AMINOTRANSFERASE 24.0 U/L (10-37); CREATININE 2.5 mg/dL (0.5-1.0); GLOMERULAR FILTR. RATE CALC 20.0 mL/min (>90); GLUCOSE,RANDOM 201.0 mg/dL (70-105); PHOSPHORUS 2.5 mg/dL (2.5-4.9); SODIUM SERUM 146.0 mmol/L (136-145); TOTAL PROTEIN, SERUM 4.4 g/dL (6.0-8.3); UREA NITROGEN, BLOOD 31.0 mg/dL (7-18)
--- NOTE | 2025-01-30 09:52 | HMCIMG ---
EXAM: CR Chest, 2 View. CLINICAL HISTORY: congestion,intubated COMPARISON: Yesterday FINDINGS: LUNGS: Endotracheal tube adequately positioned above level arminda. Left retrocardiac opacity could be due to pleural effusion/atelectasis. Pulmonary vascular congestion. PLEURAL SPACES: Small right pleural effusion. MEDIASTINUM: Cardiomegaly. BONES: No acute osseous abnormality. IMPRESSION: 1. Endotracheal tube adequately positioned above the arminda. 2. Left retrocardiac opacity, possibly due to pleural effusion or atelectasis. 3. Pulmonary vascular congestion. 4. Small right pleural effusion. 5. Cardiomegaly. /[place]
--- NOTE | 2025-01-30 10:20 | PN ---
NEPHROLOGY PROGRESS NOTE Date/Time Patient Seen: Jan 30, 2025 SUBJECTIVE: This is a 70-year-old female with past medical history of diabetes mellitus type 2, hypertension, anemia, history of CVA, history of right below-knee amputation, chronic kidney disease with prior history of dialysis She presented to the hospital secondary to hematemesis. Patient is currently intubated and sedated. Most information was obtained from chart review. bedside nurse, and family due to patient's condition The patient was noted to have black colored vomit at home which started yesterday. She has a history of peptic ulcer disease. She was noted to have elevated BUN/creatinine. Continues to require vasopressors to maintain blood pressure. Continues on heparin drip Continues on antibiotics We are consulted for renal failure Renal function remains elevated Electrolytes are stable Iron panel was noted,S/p PRBC Imaging studies were noted She was seen in the ICU, intubated Family at the bedside Condition is critical and guarded REVIEW OF SYSTEMS: Difficult to obtain given status of the patient who remains intubated mechanically ventilated Vital Signs (last 8hr) Date Time Temp Pulse Resp B/P (MAP) Pulse Ox O2 Delivery O2 Flow Rate FiO2 01/30/25 09:27 100 30 01/30/25 08:25 100 16 113/48 (69) 100 01/30/25 08:10 98 15 120/57 (78) 100 01/30/25 08:00 97.7 01/30/25 07:55 97 13 115/61 (79) 100 01/30/25 07:40 86 14 104/57 (73) 100 01/30/25 07:30 100 Ventilator+ 30 01/30/25 07:25 85 14 111/59 (76) 100 01/30/25 07:10 84 14 106/55 (72) 100 01/30/25 06:59 100 30 01/30/25 05:45 94 14 104/55 (71) 100 01/30/25 05:30 91 14 108/56 (73) 100 01/30/25 05:25 91 14 108/56 (73) 100 01/30/25 05:15 90 15 109/58 (75) 100 01/30/25 05:00 90 14 107/57 (74) 100 01/30/25 04:45 92 15 107/55 (72) 100 01/30/25 04:30 93 16 105/56 (72) 100 01/30/25 04:15 93 16 101/54 (70) 100 01/30/25 04:00 100 Ventilator+ 30 01/30/25 04:00 30 01/30/25 04:00 97.9 01/30/25 04:00 92 17 96/50 (65) 100 01/30/25 03:45 97 21 122/62 (82) 100 01/30/25 03:30 98 14 120/64 (82) 100 01/30/25 03:15 101 16 110/57 (74) 100 01/30/25 03:08 98 30 01/30/25 03:00 98 14 121/57 (78) 100 01/30/25 02:45 99 21 110/56 (74) 100 01/30/25 02:30 100 14 119/61 (80) 100 PHYSICAL EXAM: General: acutely ill, sedated, intubated, and mechanically ventilated HEENT: head is atraumatic, pupils equal and reactive, ET tube in place Neck: supple, no masses, no lymphadenopathy, no thyromegaly, no JVD Lungs: decreased breath sounds bilaterally, symmetrical chest movement Cardio: regular rate, S1 and S2 normal, no rub or gallop Abdomen: soft, non tender, no distension, no organomegaly Extremities: trace edema bilateral lower extremities, no cyanosis or clubbing Skin: no rashes or suspicious lesions Neuro: sedated Current Medications Medications (Trade) Dose Ordered Sig/Arik Route Start Time Stop Time Status Last Admin Dose Admin Albumin Human 50 ml @ 0 mls/hr Q8H6 IV 01/24/25 14:00 01/24/25 22:00 Artificial Tears (Artificial Tears) 1 DROP OR AD Q8H OU 01/23/25 19:30 02/22/25 19:29 01/24/25 12:13 1 DROP Cefepime HCl (MAXipime 2 gm vial) 2 gm Q24H IVPB 01/23/25 12:00 02/02/25 11:59 01/24/25 12:13 2 GM Ceftriaxone Sodium (ROCEphine 1G INJ) 1 gm Q24H IVPB 01/22/25 12:00 01/22/25 16:25 DC 01/22/25 14:18 1 GM Chlorhexidine Gluconate (Peridex) 15 ml TID MM 01/23/25 21:00 02/06/25 20:59 01/24/25 09:15 15 ML Fentanyl Citrate 100 ml @ 2.5 mls/hr PROTOCOL IV 01/22/25 12:00 01/22/25 11:55 DC Fentanyl Citrate 100 ml @ 2.5 mls/hr PROTOCOL IV 01/22/25 12:00 01/29/25 11:59 01/24/25 06:59 2.5 MLS/HR Insulin Human Regular (humuLIN R 100 UNIT/ML 3ML) INSULIN SLIDING SCAL... ACHS SQ 01/22/25 21:00 02/21/25 20:59 01/23/25 12:20 2 UNIT Levetiracetam (kepPRA 500 MG TABLET) 500 mg BID PO 01/22/25 21:00 01/22/25 22:13 DC Levetiracetam 500 mg/Sodium Chloride 100 ml @ 400 mls/hr Q12H9 IV 01/22/25 22:00 02/21/25 21:59 01/24/25 09:17 400 MLS/HR Levothyroxine Sodium (SYNTHroid VIAL 100MCG) 100 mcg SYN IV 01/23/25 06:30 02/22/25 06:29 01/24/25 05:34 100 MCG Linezolid 300 ml @ 150 mls/hr Q12H IV 01/24/25 08:00 02/03/25 07:59 01/24/25 09:15 150 MLS/HR Metronidazole/ Sodium Chloride 100 ml @ 100 mls/hr Q8H6 IVPB 01/22/25 22:00 02/01/25 21:59 01/24/25 05:34 100 MLS/HR Midazolam HCl 50 ml @ 0 mls/hr PROTOCOL IV 01/22/25 12:00 01/29/25 11:59 01/22/25 20:51 1 MLS/HR Norepinephrine 250 ml @ 0 mls/hr PROTOCOL IV 01/22/25 10:00 01/23/25 09:52 DC 01/22/25 14:24 60 MLS/HR Norepinephrine Bitartrate (Norepineph 16 Mg/250ml NS Premix) per protocol PROTOCOL IV 01/23/25 10:00 02/22/25 09:59 01/23/25 23:50 16 MG Octreotide Acetate 1250 mcg/ Sodium Chloride 250 ml @ 0 mls/hr PROTOCOL IV 01/22/25 12:30 01/22/25 12:17 DC Octreotide Acetate 1250 mcg/ Sodium Chloride 250 ml @ 0 mls/hr PROTOCOL IV 01/22/25 12:30 01/24/25 09:23 DC 01/22/25 12:41 5 MLS/HR Pantoprazole Sodium (PROTonix 40MG INJ) 40 mg BID IVP 01/24/25 21:00 02/23/25 20:59 Pantoprazole Sodium 80 mg/ Sodium Chloride 100 ml @ 10 mls/hr Q10H IV 01/22/25 09:00 01/24/25 09:23 DC 01/24/25 09:17 10 MLS/HR Pharmacy Profile Note (Pharmacy Communication) 1 each ONCE MISC 01/22/25 12:00 01/22/25 11:53 DC Pharmacy Profile Note (Pharmacy Communication) 1 each ONCE MISC 01/22/25 12:00 01/22/25 11:53 DC Pharmacy Profile Note (Pharmacy Communication) 1 each ONCE MISC 01/23/25 13:00 01/23/25 13:09 DC Pharmacy Profile Note (Pharmacy Communication) 1 each ONCE MISC 01/24/25 08:00 01/24/25 07:51 DC Sodium Chloride 1,000 ml @ 150 mls/hr Q6H40M IV 01/22/25 12:00 01/23/25 10:56 DC 01/23/25 02:45 150 MLS/HR Sucralfate (Carafate) 1 gm BID PO 01/23/25 21:00 01/23/25 11:41 DC Sucralfate (Carafate) 1 gm TID PO 01/23/25 14:00 02/22/25 20:59 01/24/25 09:15 1 GM Thiamine HCl 100 mg/Sodium Chloride 50 ml @ 100 mls/hr Q24H IV 01/23/25 14:00 01/25/25 14:29 01/23/25 14:05 100 MLS/HR Vancomycin HCl (Vancomycin 750mg) 750 mg Q24H IVPB 01/23/25 17:00 01/23/25 10:56 DC Vancomycin HCl (Vancomycin Protocol) 1 each AD IV 01/22/25 15:00 01/23/25 10:56 DC LABORATORY: [ ] Hematology Labs: Test 01/30/25 03:17 Range/Units White Blood Count 8.4 4.8-10.8 K/uL Red Blood Count 2.75 L 4.00-5.50 MIL/uL Hemoglobin 8.0 L 12.0-16.0 g/dL Hematocrit 23.9 L 36-48 % Mean Corpuscular Volume 86.9 79-99 fL Mean Corpuscular Hemoglobin 29.1 27.0-33.0 pg Mean Corpuscular Hemoglobin Concent 33.5 32.0-36.0 g/dL Red Cell Distribution Width 19.5 H 11.0-15.5 % Platelet Count 267 130-400 K/uL Mean Platelet Volume 11.2 H 7.5-10.5 fL Immature Granulocyte % (Auto) 1.2 H 0-1 % Neutrophils (%) (Auto) 70.5 40.0-77.0 % Lymphocytes (%) (Auto) 22.8 21.0-51.0 % Monocytes (%) (Auto) 3.1 3.0-13.0 % Eosinophils (%) (Auto) 1.6 0.0-8.0 % Basophils (%) (Auto) 0.8 0.0-5.0 % Neutrophils # (Auto) 5.9 1.8-7.7 K/uL Lymphocytes # (Auto) 1.9 1.0-4.8 K/uL Monocytes # (Auto) 0.3 0.1-1.0 K/uL Eosinophils # (Auto) 0.13 0.00-0.70 K/uL Basophils # (Auto) 0.07 0.00-0.20 K/uL Absolute Immature Granulocyte (auto 0.10 0-1 K/uL Nucleated Red Blood Cells 0.5 H 0.0-0.19 % Chemistry Labs: Test 01/30/25 05:50 01/30/25 03:17 Range/Units Whole Blood Glucose 176 H 70-110 MG/DL Sodium Level 146 H 136-145 mmol/L Potassium Level 3.7 3.5-5.1 mmol/L Chloride Level 112 H 101-111 mmol/L Carbon Dioxide Level 20 L 21-32 mmol/L Blood Urea Nitrogen 31 H 7-18 mg/dL Creatinine 2.5 H 0.5-1.0 mg/dL Glomerular Filtration Rate Calc 20 >90 mL/min Random Glucose 201 H 70-105 mg/dL Total Calcium 7.5 L 8.5-10.1 mg/dL Phosphorus Level 2.5 2.5-4.9 mg/dL Magnesium Level 2.00 1.80-2.40 mg/dL Total Bilirubin 0.5 0.2-1.0 mg/dL Aspartate Amino Transf (AST/SGOT) 24 10-37 U/L Alanine Aminotransferase (ALT/SGPT) 9 L 12-78 U/L Alkaline Phosphatase 321 #H 50-136 U/L Total Protein 4.4 L 6.0-8.3 g/dL Albumin 0.8 L 3.5-5.0 g/dL Coagulation Labs: Test 01/30/25 03:17 Range/Units Activated Partial Thromboplast Time 74.0 #H 26.3-35.5 [facility] / RADIOLOGY: [place] [address] IMAGING REPORT Signed PATIENT: JUSTIN KLINE MR#: [id number] : 1955 SEX: F AGE: 70 LOCATION: 2[facility] ORDER 7 STATUS: ADM IN REPORT#: [id number] SERVICE 5 REASON: congestion,intubated ORDERING PHYSICIAN: RERE BLAIR PROCEDURE: CXR1VW - CHEST 1VW EXAM: CR Chest, 2 View. CLINICAL HISTORY: congestion,intubated COMPARISON: Yesterday FINDINGS: LUNGS: Endotracheal tube adequately positioned above level arminda. Left retrocardiac opacity could be due to pleural effusion/atelectasis. Pulmonary vascular congestion. PLEURAL SPACES: Small right pleural effusion. MEDIASTINUM: Cardiomegaly. BONES: No acute osseous abnormality. IMPRESSION: 1. Endotracheal tube adequately positioned above the arminda. 2. Left retrocardiac opacity, possibly due to pleural effusion or atelectasis. 3. Pulmonary vascular congestion. 4. Small right pleural effusion. 5. Cardiomegaly. /[place] DICTATED BY: KIMBERLEE FABIAN MD DATE: 01/30/251050 ELECTRONICALLY SIGNED BY: KIMBERLEE FABIAN MD DATE: 01/30/251050 PATIENT: JUSTIN KLINE MR#: [id number] : 1955 SEX: F AGE: 70 LOCATION: [facility] ORDER 0521 STATUS: ADM IN REPORT#: [id number] SERVICE 0520 REASON: intubated ORDERING PHYSICIAN: MISTI DAY APRN PROCEDURE: CXR1VW - CHEST 1VW CHEST 1VW REASON: intubated COMPARISON: Prior chest radiograph from 01/28/2025 is available. FINDINGS: Single view of the chest was obtained. They demonstrate mild cardiomegaly. There is uncoiling atherosclerotic change of thoracic aorta. The lung hassan demonstrate there is an infiltrate in the left lower lung with left-sided pleural effusion which appears to be worsening. The remaining lung hassan are clear. Endotracheal tube is unchanged in satisfactory position. There is mild elevation of the right hemidiaphragm.. Mediastinum and bony thorax appear unremarkable. The bony thorax demonstrate mild osteopenia.. IMPRESSION: 1. There is infiltrate annual in the left lower lung with left-sided pleural effusion 2. Mild cardiomegaly 3. Endotracheal tube in satisfactory position.. DICTATED BY: RENA MADDOX MD DATE: 01/29/25 101 ELECTRONICALLY SIGNED BY: RENA MADDOX MD DATE: 01/29/25 101 PATIENT: JUSTIN KLINE MR#: [id number] : 1955 SEX: F AGE: 70 LOCATION: [facility] ORDER 0834 STATUS: ADM IN REPORT#: [id number] SERVICE 0833 REASON: pp ORDERING PHYSICIAN: RERE BLAIR PROCEDURE: CXR1VW - CHEST 1VW CHEST 1VW REASON: pp COMPARISON: Prior study from 01/26/2025 is available. FINDINGS: Single view of the chest was obtained. Lungs are clear. There is groundglass appearance suggesting of left-sided pleural effusion. Heart size is normal. There is uncoiling atherosclerotic change of thoracic aorta. There is no pulmonary vascular congestion. The endotracheal tube is in satisfactory position. Mediastinum and bony thorax appear unremarkable. IMPRESSION: 1. No evidence of airspace consolidation or pulmonary venous congestion 2. There is suggestion of a left-sided [id number] pleural effusion 3. Endotracheal tube in satisfactory position.. DICTATED BY: RENA MADDOX MD DATE: 01/28/251106 ELECTRONICALLY SIGNED BY: RENA MADDOX MD DATE: 01/28/251111 PATIENT: JUSTIN KLINE MR#: [id number] : 1955 SEX: F AGE: 70 LOCATION: [facility] ORDER 99 STATUS: ADM IN REPORT#: [id number] SERVICE 06 REASON: vented pt ORDERING PHYSICIAN: KARL RODRIGUEZ PROCEDURE: CXR1VW - CHEST 1VW EXAM: XR Chest, 3 Views. CLINICAL HISTORY: 70-year-old female ventilated patient. COMPARISON: Prior exam from 01/25/2025 at 3:39 PM. FINDINGS: LUNGS: Minimal pulmonary congestion, new compared to the prior exam. PLEURAL SPACES: No pleural effusion or pneumothorax. HEART: Moderate cardiomegaly, somewhat more pronounced compared to the prior exam. BONES: No acute osseous abnormality. VASCULATURE: Atherosclerotic aorta. LINES AND TUBES: Endotracheal tube tip at the arminda. Recommendation for withdrawal of 1 to 2 cm. IMPRESSION: 1. Endotracheal tube tip at the arminda. Recommend withdrawal of 1 to 2 cm. 2. Moderate cardiomegaly, somewhat more pronounced compared to the prior exam. 3. Atherosclerotic aorta. 4. Minimal pulmonary congestion, new compared to the prior XR chest from 01/25/2025 at 3:39 PM. /[place] DICTATED BY: TOM SANCHEZ MD DATE: 01/26/252120 ELECTRONICALLY SIGNED BY: TOM SANCHEZ MD DATE: 01/26/252120 PATIENT: JUSTIN KLINE MR#: [id number] : 1955 SEX: F AGE: 70 LOCATION: 2[facility] ORDER 1539 STATUS: ADM IN REPORT#: [id number] SERVICE 153 REASON: picc placement ORDERING PHYSICIAN: RERE BLAIR PROCEDURE: CXR1VW - CHEST 1VW CHEST 1VW REASON: picc placement COMPARISON: Prior chest radiograph from 01/25/2025 at 1534 is available. FINDINGS: Single view of the chest was obtained. Lungs are clear. Heart size is normal. There is uncoiling atherosclerotic change of thoracic ureter. There is no pulmonary vascular congestion. Mediastinum and bony thorax appear unremarkable. There is a right-sided PIC catheter tip in superior vena cava at the cavoatrial junction. Endotracheal tube is in satisfactory position. IMPRESSION: 1. Support lines are in satisfactory position.. 2. No evidence of airspace consolidation or pulmonary venous congestion. DICTATED BY: RENA MADDOX MD DATE: 01/25/251557 ELECTRONICALLY SIGNED BY: RENA MADDOX MD DATE: 01/25/25 160 PATIENT: JUSTIN KLINE MR#: [id number] : 1955 SEX: F AGE: 70 LOCATION: 2[facility] ORDER 1529 STATUS: ADM IN REPORT#: [id number] SERVICE 152 REASON: PICC placement ORDERING PHYSICIAN: RERE BLAIR PROCEDURE: CXR1VW - CHEST 1VW EXAM: XR Chest, 1 View. CLINICAL HISTORY: 70 year old female PICC placement right upper extremity. COMPARISON: None provided. FINDINGS: LUNGS: The lungs are clear. No consolidation. PLEURAL SPACES: No pleural effusion or pneumothorax. HEART: The heart size is enlarged. BONES: No acute osseous abnormality. LINES AND TUBES: PICC line with tip in the SVC. Endotracheal tube with tip in the arminda. VASCULATURE: Atherosclerotic aorta, similar to prior. IMPRESSION: 1. No acute cardiopulmonary pathology. 2. PICC line with tip in the SVC and endotracheal tube with tip in the arminda. /[place] DICTATED BY: TOM SANCHEZ MD DATE: 01/25/252108 ELECTRONICALLY SIGNED BY: TOM SANCHEZ MD DATE: 01/25/252108 PATIENT: JUSTIN KLINE MR#: [id number] : 1955 SEX: F AGE: 70 LOCATION: [facility] ORDER 2300 STATUS: ADM IN REPORT#: [id number] SERVICE 0600 REASON: vented pt ORDERING PHYSICIAN: KARL RODRIGUEZ PROCEDURE: CXR1VW - CHEST 1VW EXAM: XR Chest, 2 Views. CLINICAL HISTORY: 70-year-old female, ventilated. COMPARISON: 01/24/2025. FINDINGS: LUNGS: Atelectasis lung bases. PLEURAL SPACES: Left pleural effusion, similar to prior XR chest from 01/24/2025 at 4:48 am. HEART: The heart size is normal. BONES: No acute osseous abnormality. IMPRESSION: 1. Left pleural effusion, similar to prior XR chest from 01/24/2025 at 4:48 am. 2. Atelectasis lung bases. /[place] DICTATED BY: TOM SANCHEZ MD DATE: 01/25/252038 ELECTRONICALLY SIGNED BY: TOM SANCHEZ MD DATE: 01/25/252038 PATIENT: JUSTIN KLINE MR#: [id number] : 1955 SEX: F AGE: 70 LOCATION: [facility] ORDER 1510 STATUS: ADM IN REPORT#: [id number] SERVICE 1508 REASON: HGB drop, assess for possible GI bleed ORDERING PHYSICIAN: KIRSTEN KRUSE MD PROCEDURE: GIBLEED - NM GI BLOOD LOSS IMAG Examination NM radiolabeled red blood cell study History Gastrointestinal bleeding Technique After IV administration of Tc-99m labeled red autologous blood cells, anterior projection images of the abdomen and pelvis were obtained dynamically for one hour. Findings Following administration of radiolabeled red blood cells, there is normal activity seen in cardiovascular and genitourinary structures, the liver and spleen. There is no evidence for extravasation of radiolabeled red blood cells during the examination. IMPRESSION: No evidence of gastrointestinal hemorrhage during the course of examination acquisition. /[place] DICTATED BY: RADHA BECERRA Jr., MD DATE: 01/25/251457 ELECTRONICALLY SIGNED BY: RADHA BECERRA Jr., MD DATE: 01/25/251457 PATIENT: JUSTIN KLINE MR#: [id number] : 1955 SEX: F AGE: 70 LOCATION: [facility] ORDER 1143 STATUS: ADM IN REPORT#: [id number] SERVICE 1131 REASON: new onset swelling in her arms ORDERING PHYSICIAN: KIRSTEN KRUSE MD PROCEDURE: VENOUS ALCIDES - US VENOUS DOPPLER BILATERAL EXAMINATION: SPECTRAL DOPPLER ULTRASOUND EXAMINATION OF THE BILATERAL UPPER EXTREMITY VEINS. CLINICAL HISTORY: Swelling. COMPARISON: None. TECHNIQUE: Grayscale, color, and spectral Doppler images of the bilateral upper extremity veins are submitted. FINDINGS: Right: The cephalic and brachial veins are patent. These veins show normal flow with physiological changes of phasicity and augmentation. There is thrombosis in the subclavian, axillary, and basilic veins. Left: The internal jugular, subclavian, axillary, basilic, brachial veins are patent. These veins show normal flow with physiological changes of phasicity and augmentation. IMPRESSION: Deep vein thrombosis in the right subclavian and axillary veins. Right basilic vein thrombosis. The retail and restaurant associate informed the patient's nurse at the time of the exam. /[place] DICTATED BY: GOVIND HAYES MD DATE: 01/25/25722 ELECTRONICALLY SIGNED BY: GOVIND HAYES MD DATE: 01/25/25722 PATIENT: JUSTIN KLINE MR#: [id number] : 1955 SEX: F AGE: 70 LOCATION: 2[facility] ORDER 2300 STATUS: ADM IN REPORT#: [id number] SERVICE 0600 REASON: vented pt ORDERING PHYSICIAN: KARL RODRIGUEZ PROCEDURE: CXR1VW - CHEST 1VW EXAM: CR Chest, 1 View. CLINICAL HISTORY: vented pt COMPARISON: None provided. FINDINGS: LUNGS: Endotracheal tube midline above arminda Slight worsening left lower lobe infiltrate PLEURAL SPACES: No evidence of pleural effusion or pneumothorax. MEDIASTINUM: Cardiac size and mediastinal contours within normal limits. BONES: No acute osseous abnormality. IMPRESSION: 1. Endotracheal tube midline above arminda 2. Slight worsening left lower lobe infiltrate /[place] DICTATED BY: ANA ALSOTN MD DATE: 01/24/252109 ELECTRONICALLY SIGNED BY: ANA ALSTON MD DATE: 01/24/252109 PATIENT: JUSTIN KLINE MR#: [id number] : 1955 SEX: F AGE: 70 LOCATION: 2[facility] ORDER 1301 STATUS: ADM IN REPORT#: [id number] SERVICE 1258 REASON: Decreased renal function ORDERING PHYSICIAN: SAUMYA ANTONIO PROCEDURE: RENAL - US RENAL SONOGRAM EXAMINATION: ULTRASOUND OF THE RETROPERITONEUM. CLINICAL HISTORY: Decreased renal function. COMPARISON: CT abdomen and pelvis without contrast dated 01/22/2025. TECHNIQUE: Real-time grayscale ultrasound images of the kidneys. FINDINGS: The right kidney is smaller in caliber, and the left kidney is normal in caliber, the right kidney measures 7.4 x 3.9 x 3.1 cm and the left kidney measures 8.2 x 3.0 x 3.3 cm in its craniocaudal, AP, and transverse dimensions respectively. There is normal renal cortical thickness and increased cortical echogenicity. There is no renal calculus or hydronephrosis. The urinary bladder is empty. There is Kamara???s bulb. IMPRESSION: Relatively small right kidney. Increased echogenicity of both the kidneys may reflect renal parenchymal disease. Recommend clinical correlation and with laboratory parameters. Kamara???s bulb is in situ. /[place] DICTATED BY: RADHA BECERRA Jr., MD DATE: 01/23/252300 ELECTRONICALLY SIGNED BY: RADHA BECERRA Jr., MD DATE: 01/23/252300 PATIENT: JUSTIN KLINE MR#: [id number] : 1955 SEX: F AGE: 70 LOCATION: 2[facility] ORDER STATUS: ADM IN REPORT#: [id number] SERVICE 2 REASON: intubated,congestion ORDERING PHYSICIAN: KARL RODRIGUEZ PROCEDURE: CXR1VW - CHEST 1VW EXAM: CR Chest, 1 View. CLINICAL HISTORY: intubated,congestion COMPARISON: 01/22 16:55 EDT CR - CHEST 1VW FINDINGS: ET tube 3.7 cm above the arminda. LUNGS: The lungs show no infiltrate or other acute finding. PLEURAL SPACES: No pleural effusion or pneumothorax. MEDIASTINUM: Cardiac size and mediastinal contours within normal limits. BONES: No acute osseous abnormality. IMPRESSION: No acute cardiopulmonary pathology is evident. ET tube 3.7 cm above the arminda. /[place] DICTATED BY: RADHA BECERRA Jr., MD DATE: 01/23/251009 ELECTRONICALLY SIGNED BY: RADHA BECERRA Jr., MD DATE: 01/23/251009 PATIENT: JUSTIN KLINE MR#: [id number] : 1955 SEX: F AGE: 70 LOCATION: 2[facility] ORDER 23 STATUS: ADM IN REPORT#: [id number] SERVICE 22 REASON: NG tube location ORDERING PHYSICIAN: KENA HAWLEY MD PROCEDURE: ABD 1VW - ABD 1VW ADDENDUM REPORT ADDENDUM: Results were shared by telephone at 10:10 pm on 01-22-25 and acknowledged by KENA Rivas. /[place] EXAM: CR Abdomen, 1 View. CLINICAL HISTORY: NG tube location COMPARISON: None provided. FINDINGS: BOWEL: The bowel gas pattern is within normal limits. PERITONEUM/SOFT TISSUES: No free air evident. No pathologic appearing calcification. BONES: No acute osseous abnormality. MISCELLANEOUS: No nasogastric tube identified. Gastrostomy tube left upper IMPRESSION: 1. No nasogastric tube identified. 2. Gastrostomy tube left upper quadrant /[place] DICTATED BY: ANA ALSTON MD DATE: 01/22/252210 ELECTRONICALLY SIGNED BY: DATE: EXAM: CR Abdomen, 1 View. CLINICAL HISTORY: NG tube location COMPARISON: None provided. FINDINGS: BOWEL: The bowel gas pattern is within normal limits. PERITONEUM/SOFT TISSUES: No free air evident. No pathologic appearing calcification. BONES: No acute osseous abnormality. MISCELLANEOUS: No nasogastric tube identified. Gastrostomy tube left upper IMPRESSION: 1. No nasogastric tube identified. 2. Gastrostomy tube left upper quadrant /[place] DICTATED BY: ANA ALSTON MD DATE: 01/22/252200 ELECTRONICALLY SIGNED BY: ANA ALSTON MD DATE: 01/22/252200 PATIENT: JUSTIN KLINE MR#: [id number] : 1955 SEX: F AGE: 70 LOCATION: 2[facility] ORDER 50 STATUS: ADM IN REPORT#: [id number] SERVICE 49 REASON: post intubation CXR ORDERING PHYSICIAN: KARL RODRIGUEZ PROCEDURE: CXR1VW - CHEST 1VW ADDENDUM REPORT ADDENDUM: Results were shared by telephone at 6:33 pm on 01-22-25 and acknowledged by patient's nurse JESSICA. /[place] EXAM: CR Chest, 2 View. CLINICAL HISTORY: post intubation CXR COMPARISON: None provided. FINDINGS: LUNGS: Endotracheal tube appears midline above arminda PLEURAL SPACES: No pleural effusion or pneumothorax. MEDIASTINUM: The cardiomediastinal silhouette is within normal limits. BONES: No acute osseous abnormality. MISCELLANEOUS: Question nasogastric tube in the thoracic inlet. IMPRESSION: 1. Endotracheal tube appears midline above arminda 2. Question nasogastric tube in the thoracic inlet. /[place] DICTATED BY: ANA ALSTON MD DATE: 01/22/251835 ELECTRONICALLY SIGNED BY: DATE: EXAM: CR Chest, 2 View. CLINICAL HISTORY: post intubation CXR COMPARISON: None provided. FINDINGS: LUNGS: Endotracheal tube appears midline above arminda PLEURAL SPACES: No pleural effusion or pneumothorax. MEDIASTINUM: The cardiomediastinal silhouette is within normal limits. BONES: No acute osseous abnormality. MISCELLANEOUS: Question nasogastric tube in the thoracic inlet. IMPRESSION: 1. Endotracheal tube appears midline above arminda 2. Question nasogastric tube in the thoracic inlet. /[place] DICTATED BY: ANA ALSTON MD DATE: 01/22/251821 ELECTRONICALLY SIGNED BY: ANA ALSTON MD DATE: 01/22/251821 PATIENT: JUSTIN KLINE MR#: [id number] : 1955 SEX: F AGE: 70 LOCATION: [facility] ORDER 1512 STATUS: ADM IN REPORT#: [id number] SERVICE 1509 REASON: transaminitis rule out CBD dilation/obstruction cholangitis ORDERING PHYSICIAN: KARL RODRIGUEZ PROCEDURE: ABDRUQLTD - US ABDOMINAL RUQ\LTD EXAMINATION: ULTRASOUND OF THE ABDOMEN (LIMITED) WITH COLOR DOPPLER. CLINICAL HISTORY: Transaminitis. To rule out CBD obstruction. COMPARISON: CT abdomen and pelvis without contrast from the same day. TECHNIQUE: Real-time grayscale ultrasound images of the abdomen. In addition, color Doppler is medically necessary to perform in order to evaluate vascularity and blood flow. FINDINGS: Liver: Normal in caliber, the right hepatic lobe measures 15.4 cm in the craniocaudal dimension. There is increased echogenicity of the hepatic parenchyma. There is no focal hepatic abnormality or intrahepatic biliary ductal dilatation. There is normal spectral Doppler of the main portal vein. Gallbladder: Within normal limits with normal wall thickness (0.22 cm). No hyperemia or pericholecystic free fluid. There are few calculi, the largest measure 1.5 cm. Common bile duct is normal in caliber, measuring 0.28 cm. Pancreas: Obscured by overlying bowel gas. The right kidney is normal in caliber, the right kidney measures 8.2 x 3.3 x 2.9 cm in craniocaudal, AP, and transverse dimensions respectively. There is normal renal cortical thickness, and cortical echogenicity. There is no renal calculus or hydronephrosis. IMPRESSION: Hepatic steatosis. Cholelithiasis. No cholecystitis. /[place] DICTATED BY: GOVIND HAYES MD DATE: 01/23/25856 ELECTRONICALLY SIGNED BY: GOVIND HAYES MD DATE: 01/23/25856 PATIENT: JUSTIN KLINE MR#: [id number] : 1955 SEX: F AGE: 70 LOCATION: 2CH ORDER 26 STATUS: ADM IN REPORT#: [id number] SERVICE 25 REASON: PERICARDIAL EFFUSION. Please also assess EF ORDERING PHYSICIAN: KENA HAWLEY MD PROCEDURE: ECHO CMP - ECHO 2-D COMPLETE APPROVED REPORT EXAM: Two-dimensional and M-mode echocardiogram with Doppler and color Doppler. INDICATION ICD: Assess pericardial effusion and ejection fraction 2D Dimensions RVDd 3.0 cm LVEF(%) 49.3 (>50%) LVED Vol(simp.) 20.0 mL IVSd 1.9 (0.7-1.1cm) FS(%) 23 % LVES Vol(simp.) 9.0 mL LVDd 2.4 (3.8-5.6cm) LA (2D) 2.6 (1.6-4.0cm) LVEF(%, simp.) 55 % PWd 2.0 (0.7-1.1cm) Ao Root(2D) 2.7 (2.0-3.7cm) LA ESV INDEX (BP) 22.00 mL/m2 IVSs 2.0 cm LVOT diam 2.0 (1.8-2.4cm) LVDs 1.8 (2.5-4.0cm) IVC diam 1.2 cm PWs 1.7 cm Deformation Strain Apical 4 -7.1 % Apical 2 -6.9 % Apical 3 -10.1 % Global Strain -8.0 % M-Mode Dimensions EPSS 0.8 cm LA (MM) 2.3 (1.6-4.0cm) Ao Root(MM) 2.9 (2.0-3.7cm) Aortic Valve AoV Vmax 2.1 m/s Ao Peak GR 17.0 mmHg LVOT Vmax 2.1 m/s AoV VTI 0.2 m Ao Mean GR 8.4 mmHg LVOT VTI 0.22 m YASMEEN (VMAX) 3.02 cm2 YASMEEN (VTI) 3.6 cm2 Mitral Valve MV E Vmax 51.6 cm/s DECEL Time 82 ms MV A Vmax 69.0 cm/s P 1/2 T 19 ms E/A ratio 0.7 MVA (PHT) 11.9 cm2 TDI E/E' Medial 6.8 E/E' Lateral 9.3 Medial E' Peak V 7.57 cm/s Lateral E' Peak V 5.54 cm/s Pulmonary Valve PV Vmax 1.3 m/s PV VTI 0.14 m PV Mean GR 3.5 mmHg PV Peak GR 6.5 mmHg Tricuspid Valve TR Vmax 1.5 m/s RAP (EST) 3 mmHg RVSP 12.4 mmHg TR Peak GR 9.4 mmHg Left Ventricle Left ventricular cavity is small. GLS -8.0% Severe concentric left ventricular hypertrophy. LVEF is 50-55%. The left ventricular diastolic function is normal. Right Ventricle The right ventricle is normal size. The right ventricular systolic function is normal. Atria The left atrium size is normal. The right atrium is small in size. Aortic Valve The aortic valve is normal in structure. No aortic regurgitation is present. There is no aortic valvular stenosis. Mitral Valve The mitral valve is normal in structure. There is trace of mitral valve regurgitation noted. There is no mitral valve stenosis. Tricuspid Valve The tricuspid valve is normal in structure. There is trace of tricuspid valve regurgitation noted. Pulmonic Valve Pulmonic valve is not well visualized. There is no pulmonic valvular regurgitation. Great Vessels The aortic root is normal in size. The IVC is normal in size and collapses >50% with inspiration. Pericardium There is no pericardial effusion. Other Information Quality : Technically difficult study due to body habitus, pt intubated Rhythm : Tachycardia Conclusion LVEF is 50-55%. Severe concentric left ventricular hypertrophy. The left ventricular diastolic function is normal. There is no pericardial effusion. DICTATED BY: GIULIANA AWAN DO DATE: 01/22/25 1318 ELECTRONICALLY SIGNED BY: GIULIANA AWAN DO DATE: 01/23/25 0743 PATIENT: JUSTIN KLINE MR#: [id number] : 1955 SEX: F AGE: 70 LOCATION: [facility] ORDER 1152 STATUS: ADM IN REPORT#: [id number] SERVICE 1151 REASON: S/P INTUBATION. ET tube position ORDERING PHYSICIAN: KENA HAWLEY MD PROCEDURE: CXR1VW - CHEST 1VW EXAM: CR Chest, 2 View. CLINICAL HISTORY: S/P INTUBATION. ET tube position COMPARISON: Radiograph from January 22 at 8:53 AM FINDINGS: Endotracheal tube terminates 1.4 cm above the arminda. LUNGS: There is no mass, infiltrate, or acute pulmonary abnormality. PLEURAL SPACES: No pleural effusion or pneumothorax. MEDIASTINUM: Cardiac size and mediastinal contours within normal limits. Atherosclerosis of the thoracic aorta. BONES: No acute osseous abnormality. IMPRESSION: 1. Endotracheal tube positioned 1.4 cm above the arminda. 2. No acute cardiopulmonary abnormality. /[place] DICTATED BY: RADHA BECERRA Jr., MD DATE: 01/22/251309 ELECTRONICALLY SIGNED BY: RADHA BECERRA Jr., MD DATE: 01/22/251309 PATIENT: JUSTIN KLINE MR#: [id number] : 1955 SEX: F AGE: 70 LOCATION: [facility] ORDER 8 STATUS: REG REPORT#: [id number] SERVICE 7 REASON: gi bleed ORDERING PHYSICIAN: JULISA PETERSON MD PROCEDURE: ABD PEL WO - CT ABDOMEN/PELVIS W/O CONTRAST CT ABDOMEN/PELVIS W/O CONTRAST REASON: gi bleed COMPARISON: None. FINDINGS: Lung bases are clear. There is a small left-sided pleural effusion. There is coronary calcifications suggesting coronary artery disease. There is suggestion of small pericardial effusion. There is a moderate size hiatal hernia. . There are no focal liver lesions. There are normal-appearing kidneys.. Spleen and pancreas appear unremarkable. The gallbladder appears normal as well. There is a feeding gastrostomy tube in place. Bowel loops appear unremarkable. This includes normal appearance of the appendix . There is fecal stasis in the rectal vault. Abutting the right lobe of the bowel in the right lower quadrant and abutting the right psoas muscle there is a a cystic structure measuring 5.9 x 3.9 cm. There is no evidence of free fluid or intraperitoneal air. There are no focal fluid collections. The retroperitoneum appear normal as do pelvic soft tissue structures. Aorta and iliac vessels demonstrate diffuse atherosclerotic changes. The anterior abdominal wall is intact. Osseous structures appear unremarkable. The uterus is surgically absent. IMPRESSION: 1. No acute process seen in CT of abdomen and pelvis without intravenous contrast 2. In the right adnexal region there is a cystic structure measuring 5.9 x 3.9 cm 3. Fecal stasis impaction seen in the rectal vault CT was performed with one or more following dose reduction techniques: automated exposure control, adjustment of the mA and kv according to patient's size, or use of a iterative reconstruction technique. DICTATED BY: RENA MADDOX MD DATE: 01/22/25 1044 ELECTRONICALLY SIGNED BY: RENA MADDOX MD DATE: 01/22/25 1051 PATIENT: JUSTIN KLINE MR#: [id number] : 1955 SEX: F AGE: 70 LOCATION: [facility] ORDER 8 STATUS: [facility] REPORT#: [id number] SERVICE REASON: gi bleed ORDERING PHYSICIAN: JULISA PETERSON MD PROCEDURE: ABD PEL WO - CT ABDOMEN/PELVIS W/O CONTRAST CT ABDOMEN/PELVIS W/O CONTRAST REASON: gi bleed COMPARISON: None. FINDINGS: Lung bases are clear. There is a small left-sided pleural effusion. There is coronary calcifications suggesting coronary artery disease. There is suggestion of small pericardial effusion. There is a moderate size hiatal hernia. . There are no focal liver lesions. There are normal-appearing kidneys.. Spleen and pancreas appear unremarkable. The gallbladder appears normal as well. There is a feeding gastrostomy tube in place. Bowel loops appear unremarkable. This includes normal appearance of the appendix . There is fecal stasis in the rectal vault. Abutting the right lobe of the bowel in the right lower quadrant and abutting the right psoas muscle there is a a cystic structure measuring 5.9 x 3.9 cm. There is no evidence of free fluid or intraperitoneal air. There are no focal fluid collections. The retroperitoneum appear normal as do pelvic soft tissue structures. Aorta and iliac vessels demonstrate diffuse atherosclerotic changes. The anterior abdominal wall is intact. Osseous structures appear unremarkable. The uterus is surgically absent. IMPRESSION: 1. No acute process seen in CT of abdomen and pelvis without intravenous contrast 2. In the right adnexal region there is a cystic structure measuring 5.9 x 3.9 cm 3. Fecal stasis impaction seen in the rectal vault CT was performed with one or more following dose reduction techniques: automated exposure control, adjustment of the mA and kv according to patient's size, or use of a iterative reconstruction technique. DICTATED BY: RENA MADDOX MD DATE: 01/22/251043 ELECTRONICALLY SIGNED BY: RENA MADDOX MD DATE: 01/22/251050 PATIENT: JUSTIN KLINE MR#: [id number] : 1955 SEX: F AGE: 70 LOCATION: [facility] ORDER 9 STATUS: REG ER REPORT#: [id number] SERVICE 7 REASON: cp ORDERING PHYSICIAN: JULISA PETERSON MD PROCEDURE: CXR1VW - CHEST 1VW EXAM: Chest radiograph 1 view HISTORY: Chest pain COMPARISON: None FINDINGS: No pulmonary consolidations. No pleural effusion or pneumothorax. Enlarged cardiac silhouette. Tortuous calcified aorta. No overt congestion. Degenerative changes. IMPRESSION: No acute cardiopulmonary disease. /[place] DICTATED BY: DESTINY CASTELLANOS MD DATE: 01/22/251058 ELECTRONICALLY SIGNED BY: DESTINY CASTELLANOS MD DATE: 01/22/251058 ASSESSMENT: Acute renal failure Anemia Septic shock requiring pressors, POA Acute metabolic encephalopathy POA Acute Hypoxic rep failure requiring intubation for airway protection POA Acute complicated cystitis POA Acute on chronic anemia 2/ GI Bleed (Hematemesis) POA Hyperglycemia in the presence of type 2 diabetes mellitus, POA right adnexal region there is a cystic structure measuring 5.9 x 3.9 cm Thrombocytosis Hypokalemia Electrolyte derangement (hypokalemia, hypocalcemia) severe Hypoalbuminemia Malnutrition Transaminitis Elevated TSH suspected myxedema Uncontrolled type 2 diabetes mellitus Essential hypertension Anemia Prior history of CVA Right [id number]-[id number]-eibm amputation G-tube in situ Bed ridden Recent hospitalization [facility] for hematemesis PLAN: Labs, diagnostic, radiologic exams reviewed and interpreted by myself and supervising physician. We have reviewed external records in detail Require close monitoring of renal function and electrolytes Order CBC, CMP, and electrolytes in am Continue with antibiotics Continue mechanical ventilation and sedation Continue with IV pressors Monitor blood pressure adjust medication doses as needed Avoid hypotensive episodes May use Dilaudid 0.5 mg IV every 6 hours as needed for severe pain Monitor blood sugars Strict intake, output, and daily weight should be monitored Please renally adjust medications Avoid nephrotoxic and nonsteroidal drugs Avoid contrast if possible Will continue to monitor renal function, anemia, electrolytes Treatment plan discussed with patient Questions were answered We have discussed with the other team physicians in detail about the care plan We will continue to monitor the patient closely Total critical care time spent with patient, nursing staff, critical care team over 35 minutes ATTESTATION BY PHYSICIAN I have seen and examined the patient. I reviewed the documentation, medical decision making, and treatment plan as noted by the mid-level provider above. I agree with the findings and plan of care. CHRISTELLE SIMENTAL MD, [facility] Jan 30, 2025 10:20
--- NOTE | 2025-01-30 11:29 | PN ---
[facility] PROGRESS NOTE Date Patient Seen: Jan 30, 2025 Time of Visit: 11:27 Supervising Physician: Dr Marshall Rick Primary Care Physician: NANDO HUYNH Outpatient Specialists: [ ] Inpatient Consults: DR RAMOS, DR HEAD, DR SIMENTAL Assessment: Hemorrhagic shock and septic shock Acute complicated cystitis - ESBL to urine Acute hypoxemic respiratory failure (intubated) Deep vein thrombosis in the right subclavian and axillary veins and Right basilic vein thrombosis. UGIB with hematemesis Acute on chronic anemia 2nd to above Type II diabetes mellitus with hyperglycemia Dysphagia with G-tube Acute on chronic kidney disease Unstageable wound on sacrum Right BKA INTERVAL HISTORY: Patient seen and examined, all labs and imaging have been reviewed, Patient remains intubated, FiO2 30%, peep of 5, good saturations we are pending an ABG this morning Chest x-ray significantly improved Patient opens her eyes to pain stimuli but is not tracking or following commands Urine output minimal 50 cc this morning hemoglobin is 8, platelets 267, Continues on the heparin drip, currently at goal Low-dose levo Plan: Vent management, ABG, chest x-ray , spontaneous breathing trials, when able Following hemoglobin and transfusing as needed Following GI recs Following cultures, antibiotics Heparin drip for DVTs Total critical care time 48 minutes, patient remains critically ill, continues on pressor support along of with vent management. REVIEW OF SYSTEMS: Unable to obtain due to patient's intubated PHYSICAL EXAM: GENERAL: Critically ill intubated and sedated. HEENT: Sclera non icteric, dry mucosa NECK: Supple, no JVD, trachea midline LUNGS: Clear breath sounds bilaterally. No wheezes HEART: Regular rate and rhythm. Normal S1 and S2, without murmurs ABD: Abdomen soft, nontender. Bowel sounds present EXT: No clubbing cyanosis or edema, history of right BKA NEURO: Intubated and sedated Vital Signs (last 8hr) Date Time Temp Pulse Resp B/P (MAP) Pulse Ox O2 Delivery O2 Flow Rate FiO2 01/30/25 09:27 100 30 01/30/25 08:25 100 16 113/48 (69) 100 01/30/25 08:10 98 15 120/57 (78) 100 01/30/25 08:00 97.7 01/30/25 07:55 97 13 115/61 (79) 100 01/30/25 07:40 86 14 104/57 (73) 100 01/30/25 07:30 100 Ventilator+ 30 01/30/25 07:25 85 14 111/59 (76) 100 01/30/25 07:10 84 14 106/55 (72) 100 01/30/25 06:59 100 30 01/30/25 05:45 94 14 104/55 (71) 100 01/30/25 05:30 91 14 108/56 (73) 100 01/30/25 05:25 91 14 108/56 (73) 100 01/30/25 05:15 90 15 109/58 (75) 100 01/30/25 05:00 90 14 107/57 (74) 100 01/30/25 04:45 92 15 107/55 (72) 100 01/30/25 04:30 93 16 105/56 (72) 100 01/30/25 04:15 93 16 101/54 (70) 100 01/30/25 04:00 100 Ventilator+ 30 01/30/25 04:00 30 01/30/25 04:00 97.9 01/30/25 04:00 92 17 96/50 (65) 100 01/30/25 03:45 97 21 122/62 (82) 100 01/30/25 03:30 98 14 120/64 (82) 100 LABS: Hematology Labs: Test 01/30/25 03:17 Range/Units White Blood Count 8.4 4.8-10.8 K/uL Red Blood Count 2.75 L 4.00-5.50 MIL/uL Hemoglobin 8.0 L 12.0-16.0 g/dL Hematocrit 23.9 L 36-48 % Mean Corpuscular Volume 86.9 79-99 fL Mean Corpuscular Hemoglobin 29.1 27.0-33.0 pg Mean Corpuscular Hemoglobin Concent 33.5 32.0-36.0 g/dL Red Cell Distribution Width 19.5 H 11.0-15.5 % Platelet Count 267 130-400 K/uL Mean Platelet Volume 11.2 H 7.5-10.5 fL Immature Granulocyte % (Auto) 1.2 H 0-1 % Neutrophils (%) (Auto) 70.5 40.0-77.0 % Lymphocytes (%) (Auto) 22.8 21.0-51.0 % Monocytes (%) (Auto) 3.1 3.0-13.0 % Eosinophils (%) (Auto) 1.6 0.0-8.0 % Basophils (%) (Auto) 0.8 0.0-5.0 % Neutrophils # (Auto) 5.9 1.8-7.7 K/uL Lymphocytes # (Auto) 1.9 1.0-4.8 K/uL Monocytes # (Auto) 0.3 0.1-1.0 K/uL Eosinophils # (Auto) 0.13 0.00-0.70 K/uL Basophils # (Auto) 0.07 0.00-0.20 K/uL Absolute Immature Granulocyte (auto 0.10 0-1 K/uL Nucleated Red Blood Cells 0.5 H 0.0-0.19 % Chemistry Labs: Test 01/30/25 05:50 01/30/25 03:17 Range/Units Whole Blood Glucose 176 H 70-110 MG/DL Sodium Level 146 H 136-145 mmol/L Potassium Level 3.7 3.5-5.1 mmol/L Chloride Level 112 H 101-111 mmol/L Carbon Dioxide Level 20 L 21-32 mmol/L Blood Urea Nitrogen 31 H 7-18 mg/dL Creatinine 2.5 H 0.5-1.0 mg/dL Glomerular Filtration Rate Calc 20 >90 mL/min Random Glucose 201 H 70-105 mg/dL Total Calcium 7.5 L 8.5-10.1 mg/dL Phosphorus Level 2.5 2.5-4.9 mg/dL Magnesium Level 2.00 1.80-2.40 mg/dL Total Bilirubin 0.5 0.2-1.0 mg/dL Aspartate Amino Transf (AST/SGOT) 24 10-37 U/L Alanine Aminotransferase (ALT/SGPT) 9 L 12-78 U/L Alkaline Phosphatase 321 #H 50-136 U/L Total Protein 4.4 L 6.0-8.3 g/dL Albumin 0.8 L 3.5-5.0 g/dL Coagulation Labs: Test 01/30/25 03:17 Range/Units Activated Partial Thromboplast Time 74.0 #H 26.3-35.5 SEC DIAGNOSTICS / RADIOLOGY RESULTS: [ ] PLAN NEURO: Minimize central acting medications as possible. Fall Precautions. Well lighted room through the day and minimize interruptions through the night to prevent acute delirium. PULMONARY: Supplemental 02 as needed Titrate Fio2 to keep Spo2 > or = 90% DuoNebs and CPT as needed IS hourly while awake for pulmonary hygiene Out of bed to chair as tolerated VAP Bundle Vent/BIPAP Settings: Assist-control volume control tidal volume of 400 respiratory rate of 18 FiO2 of 50% and PEEP of five. Maintain plateau pressure less than 30 CARDIOVASCULAR: Follow hemodynamics. Titrate vasopressor to keep MAP >65 or systolic blood pressure >95mmHg Drips: Fentanyl Versed Levophed Vasopressin Protonix Sandostatin LINES: Right femoral central line PICC line pending GI & NUTRITION: Continue nutritional support Aspirations precautions Prokinetic agents and laxatives as needed KIDNEYS & ELECTROLYTES: Strict monitoring of intake and output Daily weights Avoid nephrotoxic agents Monitor electrolytes and replace as needed Goal urine output of 30mL/hr or 0.5mL/kg/hr Urine output: [ ] Fluid Balance: [ ] ENDOCRINE: Maintain blood glucose between 100-180 at all times. Insulin sliding scale for blood glucose management INFECTIOUS DISEASE: Trend temperature. Leonard-culture if febrile. Micro: [ ] follow urine culture blood culture neg Antibiotics: [ ] cefepime flagyl zyvox HEMATOLOGY & COAGULATION: Monitor H&H. Keep Hgb > 7 Transfuse 1 unit of PRBC for Hgb < 7 Transfuse 1 pack of platelets of platelets < 20, 000 Watch for any signs and symptoms of bleeding SKIN: Pressure ulcer prevention per facility protocol Rehab: PT/OT Prophylaxis: GI: Protonix 40 mg b.i.d. DVT: SCDs avoid anticoagulants due to hematemesis Code Status: Full Resuscitation Disposition: [ ICU Case was discussed and seen with my supervising physician. The above plan was formulated and agreed upon. RERE BLAIR Jan 30, 2025 11:29
[2025-01-30 12:12] LABS: ASPARTATE AMINOTRANSFERASE 30.0 U/L (10-37); CREATININE 2.7 mg/dL (0.5-1.0); GLOMERULAR FILTR. RATE CALC 19.0 mL/min (>90); GLUCOSE,RANDOM 225.0 mg/dL (70-105); SODIUM SERUM 146.0 mmol/L (136-145); TOTAL PROTEIN, SERUM 4.9 g/dL (6.0-8.3); UREA NITROGEN, BLOOD 31.0 mg/dL (7-18)
--- NOTE | 2025-01-30 14:12 | PN ---
[facility] PROGRESS NOTE Date of Service: Jan 30, 2025 Time of Service: 14:02 SUBJECTIVE: 70-year-old female with past medical history of diabetes mellitus type 2, hypertension, anemia, history of CVA, history of right below-knee amputation who presented to the hospital secondary to hematemesis. Patient is currently intubated and sedated. The patient's history is mostly obtained from patient's who is present at bedside and from ED provider. The patient was noted to have black colored vomit at home which started yesterday. She has a history of peptic ulcer disease. She also has a PEG tube placed around two weeks ago. Peg tube was placed in [facility]. Per patient is able to swallow better now. denied any fever, chills, shortness for breath, chest pain. History is fairly limited at this time as patient is not able to participate in conversation. Labs were Notable for white count of 9.1, hemoglobin was 9.1, MCV was 86.7, platelet count was 456 K, sodium was 138, potassium was 3.1, bicarb was , creatinine was 1.7, glucose was 234, alk-phos was 153, total protein was 5.0, albumin was 0.9, lipase was negative normal Underwent a CT abdomen pelvis which showed no acute process in the CT abdomen without IV contrast. Patient was noted to have cystic structure in the right adrenal region measuring 5.9 x 3.9 cm. The patient also had fecal impaction noted. In the ED patient had episode of hematemesis and she was intubated for airway protection by ED provider. 01/23/2025: The patient is examined at the bedside. She was sedated and not responsive during my visit. GI performed EGD in the morning and they have observed no active bleeding. Nurse notified an unstageable wound on sacrum for which Wound consult is placed today. We will be manage as per critical Care recommendations. 01/24/2025: The patient is examined at the bedside. She was sedated and not responsive during my visit. Her arms are swollen. Her vitals are normal except for blood pressure is 97/51. Her labs are in the normal range except for Hb is 6.6, chloride is 113, BUN is 39, creatinine is 2.4, iron is 28, TIBC is 44, % saturation is 63.6, TSH is 7.62. Her urine culture grew 10,000-50,000 CFU. Identification and susceptibility are in process. Blood culture show no growth after 48 hours. Renal ultrasound show renal parenchymal disease. As her hemoglobin is low she received a blood transfusion. After the transfusion her hemoglobin is 7.1. We ordered a bilateral upper limb doppler which showed evidence of DVT. Gastroenterology was consulted to give recommendations on starting anticoagulation. GI recommended high dose Protonix drip for 48 hours and carafate 1gm PO QID, after 48 hours start heparin drip. IR was called to ask about the option of placing an SVC filter, and they recommended mechanical thrombectomy. The patient is not a good candidate for an SVC filter. A urinalysis, urine electrolytes, urine protein were ordered today. Urinalysis showed turbid urine, protein >300, ketones 5, moderate occult blood, moderate leukocyte esterase, RBC 6 to 10, WBC is TNTC, protein 410.9, sodium is 43, potassium is 36, chloride is 40. 01/25/2025: The patient is examined at the bedside. She was sedated and not responsive during my visit. Her arms are swollen. Her vitals are normal. Her labs are in the normal range except for Hb is 5.9, WBC is 11.2, Cl is 112, potassium is 3.2, CO2 is 19, BUN is 40 creatinine is 2.6. As her hemoglobin is low we gave a t ransfusion and the repeat Hb is 7.4. Gastroenterology will do EGD and colonoscopy tomorrow morning. Hematology is consulted and they recommended same management. Wound care recommended to cleanse with normal saline, pat dry, apply medihoney, cover with allevyn, change daily and prnKeep wounds clean and dry , Offloading/reposition q 2 hours. Bleeding scan showed no evidence of gastrointestinal hemorrhage. 01/26/2025: The patient is examined at the bedside. She was sedated and not responsive during my visit. Her arms are swollen. Her vitals are normal except for blood pressure which is 96/45. Her labs are in the normal range except for Hb is 8.7, K is 2.8, Cl is 112, CO2 is 19, BUN is 37, creatinine is 2.5, Albumin is 1.1. She is scheduled for an EGD and colonoscopy today. We replaced the potassium and the repeat potassium levels are 2.8 and 3.1. 01/27/2025: Patient is examined at the bedside. She was sedated and not responsive during my visit. Her arms are swollen. Her vitals are normal except for blood pressure which is 94/49. Her labs are in the normal range except for hemoglobin is 8.7, potassium is 2.9, chloride is 112, BUN is 33, creatinine is 2.5, albumin is 1, CRP is 223.1. Urine culture showed ESBL which is sensitive to Zosyn, meropenem and levofloxacin. She underwent endoscopy and colonoscopy yesterday which showed no evidence of bleeding. Gastroenterology recommended to follow within 1 week after discharge. Chest x-ray showed minimal pulmonary congestion. The nurse told us that she will try waking up the patient, extubate her and try spontaneous breathing trial. 01/28/2025: Patient is seen and examined at the bedside. She was sedated and not responsive during my visit. Her vital signs are in the normal range except for blood pressure is 97/55. Labs are in the normal range except for hemoglobin is 8.3, WBCs 12.9, potassium is 3.2, chloride is 100, bicarb is 16, BUN is 33, creatinine is 2.5, glucose is 181, ALP is 154. Yesterday the nurse tried to extubate her but she could not extubate as she is not waking up and she can't not protect her airway. She is currently on heparin drip. Critical care stopped her Protonix drip as she is fluid overloaded and they started protonix 40 mg b.i.d. We will continue to follow recommendations from critical Care and Gastroenterology. 01/29/2025: Patient is seen and examined at the bedside. She was sedated and not responsive during my visit. Her vital signs are in the normal range except for blood pressure is 90/48. Labs are in the normal range except for hemoglobin 7.7, potassium 2.9, sodium 146, chloride 113, bicarbonate 20, BUN 33, creatinine 2.5. Chest x-ray showed that there is an infiltrate in the left lower lung with a left-sided pleural effusion. She is currently on heparin drip and Protonix 40 mg b.i.d. We will continue to follow recommendations from critical Care and Gastroenterology. 01/30/2025: She was evaluated at the bedside this morning. As per nurse she passed black tarry stool this morning. She is sedated and intubated at pain sitting tidal volume 400 mL/minute, FiO2 100%, peep 5 and RR 14. She is on pressor support with Levophed 0.05. The remarkable lab is for hemoglobin 8, ALP 321, albumin 0.8, creatinine 2.5, chloride 112, bicarbonate 20. She is continued on linezolid, Zosyn, levothyroxine, levetiracetam, Protonix, Levophed. Heparin drip held for temporarily because of supratherapeutic APTT. We will continue to follow recommendations from critical Care and Gastroenterology. REVIEW OF SYSTEMS Unable to obtain as patient is sedated PHYSICAL EXAM GENERAL APPEARANCE: He is currently intubated and sedated NEUROLOGICAL: Cranial nerves II-XII grossly intact. Motor is 5/5 in bilateral upper and lower extremities proximal to distal. No sensory deficits. HEENT: Face is symmetric. Pupils are equal and reactive. Extraocular movements are intact. NECK: Supple. No JVD. No thyromegaly. No submental, submandibular, pre- /postauricular, occipital or supraclavicular lymphadenopathy. CHEST: Normal chest expansion. No Telemetry. LUNGS: Absence of any rales, rhonchi or any wheezing. CARDIOVASCULAR: Regular. S1 and S2 normal. No appreciable rubs, murmurs or gallops. ABDOMEN: Soft, nontender, and nondistended. There is no rebound, voluntary gu arding, or rigidity. Patient has a PEG tube in place : Deferred. No Kamara. EXTREMITIES: Below-knee amputation of the right lower extremity SKIN: No skin breakdown. Vital Signs (last 8hr) Date Time Temp Pulse Resp B/P (MAP) Pulse Ox O2 Delivery O2 Flow Rate FiO2 01/30/25 12:06 100 30 01/30/25 09:27 100 30 01/30/25 08:25 100 16 113/48 (69) 100 01/30/25 08:10 98 15 120/57 (78) 100 01/30/25 08:00 97.7 01/30/25 07:55 97 13 115/61 (79) 100 01/30/25 07:40 86 14 104/57 (73) 100 01/30/25 07:30 100 Ventilator+ 30 01/30/25 07:25 85 14 111/59 (76) 100 01/30/25 07:10 84 14 106/55 (72) 100 01/30/25 06:59 100 30 LABS: Laboratory: Test 01/30/25 12:55 01/30/25 11:41 01/30/25 03:17 Range/Units Whole Blood Glucose 186 H 70-110 MG/DL Activated Partial Thromboplast Time 58.9 H 26.3-35.5 SEC Sodium Level 146 H 136-145 mmol/L Potassium Level 3.6 3.5-5.1 mmol/L Chloride Level 112 H 101-111 mmol/L Carbon Dioxide Level 20 L 21-32 mmol/L Blood Urea Nitrogen 31 H 7-18 mg/dL Creatinine 2.7 H 0.5-1.0 mg/dL Glomerular Filtration Rate Calc 19 >90 mL/min Random Glucose 225 H 70-105 mg/dL Total Calcium 8.0 L 8.5-10.1 mg/dL Total Bilirubin 0.5 0.2-1.0 mg/dL Aspartate Amino Transf (AST/SGOT) 30 10-37 U/L Alanine Aminotransferase (ALT/SGPT) 9 L 12-78 U/L Alkaline Phosphatase 393 H 50-136 U/L Total Protein 4.9 L 6.0-8.3 g/dL Albumin 0.9 L 3.5-5.0 g/dL White Blood Count 8.4 4.8-10.8 K/uL Red Blood Count 2.75 L 4.00-5.50 MIL/uL Hemoglobin 8.0 L 12.0-16.0 g/dL Hematocrit 23.9 L 36-48 % Mean Corpuscular Volume 86.9 79-99 fL Mean Corpuscular Hemoglobin 29.1 27.0-33.0 pg Mean Corpuscular Hemoglobin Concent 33.5 32.0-36.0 g/dL Red Cell Distribution Width 19.5 H 11.0-15.5 % Platelet Count 267 130-400 K/uL Mean Platelet Volume 11.2 H 7.5-10.5 fL Immature Granulocyte % (Auto) 1.2 H 0-1 % Neutrophils (%) (Auto) 70.5 40.0-77.0 % Lymphocytes (%) (Auto) 22.8 21.0-51.0 % Monocytes (%) (Auto) 3.1 3.0-13.0 % Eosinophils (%) (Auto) 1.6 0.0-8.0 % Basophils (%) (Auto) 0.8 0.0-5.0 % Neutrophils # (Auto) 5.9 1.8-7.7 K/uL Lymphocytes # (Auto) 1.9 1.0-4.8 K/uL Monocytes # (Auto) 0.3 0.1-1.0 K/uL Eosinophils # (Auto) 0.13 0.00-0.70 K/uL Basophils # (Auto) 0.07 0.00-0.20 K/uL Absolute Immature Granulocyte (auto 0.10 0-1 K/uL Nucleated Red Blood Cells 0.5 H 0.0-0.19 % Phosphorus Level 2.5 2.5-4.9 mg/dL Magnesium Level 2.00 1.80-2.40 mg/dL Current Medications Medications (Trade) Dose Ordered Sig/Arik Route PRN Reason Start Time Stop Time Status Last Admin Dose Admin Albumin Human 50 ml @ 0 mls/hr Q8H6 IV 01/24/25 14:00 01/24/25 22:00 DC 01/24/25 20:45 1,200 MLS/HR Artificial Tears (Artificial Tears) 1 DROP OR AD Q8H OU 01/23/25 19:30 02/22/25 19:29 01/30/25 13:57 1 DROP Bumetanide (Bumex 1mg Vial) 1 mg ONCE PRN IVP AFTER TRANSFUSION 01/24/25 08:00 01/24/25 09:23 DC Bumetanide (Bumex 1mg Vial) 2 mg ONCE PRN IVP AFTER TRANSFUSION 01/24/25 14:00 01/24/25 14:00 DC 01/24/25 13:28 2 MG Cefepime HCl (MAXipime 2 gm vial) 2 gm Q24H IVPB 01/23/25 12:00 01/26/25 12:05 DC 01/26/25 11:38 2 GM Ceftriaxone Sodium (ROCEphine 1G INJ) 1 gm Q24H IVPB 01/22/25 12:00 01/22/25 16:25 DC 01/22/25 14:18 1 GM Chlorhexidine Gluconate (Peridex) 15 ml TID MM 01/23/25 21:00 02/06/25 20:59 01/30/25 13:57 15 ML Dexmedetomidine/ Sodium Chloride (PRECEdex 400MCG/ 100ML-NS) 400 mcg PROTOCOL IV 01/27/25 15:30 02/26/25 15:29 Dextrose (D50w) 50 ml AD PRN IV HYPOGLYCEMIA PROTOCOL 01/22/25 15:30 02/21/25 15:29 Fentanyl Citrate 100 ml @ 2.5 mls/hr PROTOCOL IV 01/22/25 12:00 01/22/25 11:55 DC Fentanyl Citrate 100 ml @ 2.5 mls/hr PROTOCOL IV 01/22/25 12:00 01/27/25 15:35 DC 01/27/25 05:34 2.5 MLS/HR Glucagon (Glucagon 1mg Kit) 1 mg AD PRN IM HYPOGLYCEMIA PROTOCOL 01/22/25 15:30 02/21/25 15:29 Heparin Sodium (Porcine) (HEParin 5,000 UNIT VIAL) *calculation based on ACTUAL B... AD PRN IV HEPARIN PROTOCOL 01/27/25 16:30 02/26/25 16:29 Heparin Sodium/ Dextrose 250 ml @ 0 mls/hr Q6H IV 01/27/25 16:30 02/26/25 16:29 01/28/25 12:38 11.39 MLS/HR Insulin Human Regular (humuLIN R 100 UNIT/ML 3ML) INSULIN SLIDING SCAL... ACHS SQ 01/22/25 21:00 01/25/25 20:51 DC 01/25/25 16:29 3 UNIT Insulin Human Regular (humuLIN R 100 UNIT/ML 3ML) INSULIN SLIDING SCAL... Q6H6 SQ 01/26/25 10:00 02/25/25 09:59 01/30/25 13:42 2 UNIT Leptospermum Honey (Ramenhoney) 1 APPLICATION DAILY TP 01/26/25 09:00 02/25/25 08:59 01/30/25 09:33 1 APPL Levetiracetam (kepPRA 500 MG TABLET) 500 mg BID PO 01/22/25 21:00 01/22/25 22:13 DC Levetiracetam 500 mg/Sodium Chloride 100 ml @ 400 mls/hr Q12H9 IV 01/22/25 22:00 02/21/25 21:59 01/30/25 13:38 400 MLS/HR Levothyroxine Sodium (SYNTHroid VIAL 100MCG) 100 mcg SYN IV 01/23/25 06:30 02/22/25 06:29 01/30/25 05:53 100 MCG Linezolid 300 ml @ 150 mls/hr Q12H IV 01/24/25 08:00 02/03/25 07:59 01/30/25 09:32 150 MLS/HR Magnesium Sulfate 50 ml @ 0 mls/hr PROTOCOL PRN IV Hypomagnesemia 01/22/25 15:30 02/21/25 15:29 01/29/25 08:35 25 MLS/HR Metronidazole/ Sodium Chloride 100 ml @ 100 mls/hr Q8H6 IVPB 01/22/25 22:00 01/26/25 12:05 DC 01/26/25 06:13 100 MLS/HR Midazolam HCl 50 ml @ 0 mls/hr PROTOCOL IV 01/22/25 12:00 01/27/25 15:35 DC 01/27/25 09:10 5 MLS/HR Norepinephrine 250 ml @ 0 mls/hr PROTOCOL IV 01/22/25 10:00 01/23/25 09:52 DC 01/22/25 14:24 60 MLS/HR Norepinephrine Bitartrate (Norepineph 16 Mg/250ml NS Premix) per protocol PROTOCOL IV 01/23/25 10:00 02/22/25 09:59 01/28/25 17:15 16 MG Octreotide Acetate 1250 mcg/ Sodium Chloride 250 ml @ 0 mls/hr PROTOCOL IV 01/22/25 12:30 01/22/25 12:17 DC Octreotide Acetate 1250 mcg/ Sodium Chloride 250 ml @ 0 mls/hr PROTOCOL IV 01/22/25 12:30 01/24/25 09:23 DC 01/22/25 12:41 5 MLS/HR Pantoprazole Sodium (PROTonix 40MG INJ) 40 mg BID IVP 01/24/25 21:00 01/24/25 15:02 DC Pantoprazole Sodium (PROTonix 40MG INJ) 40 mg BID IVP 01/28/25 21:00 02/27/25 20:59 01/30/25 09:32 40 MG Pantoprazole Sodium 80 mg/ Sodium Chloride 100 ml @ 10 mls/hr Q10H IV 01/22/25 09:00 01/24/25 09:23 DC 01/24/25 09:17 10 MLS/HR Pantoprazole Sodium 80 mg/ Sodium Chloride 100 ml @ 10 mls/hr Q10H IV 01/24/25 15:00 01/28/25 13:39 DC 01/28/25 00:06 10 MLS/HR Pharmacy Profile Note (Pharmacy Communication) 1 each ONCE MISC 01/22/25 12:00 01/22/25 11:53 DC Pharmacy Profile Note (Pharmacy Communication) 1 each ONCE MISC 01/22/25 12:00 01/22/25 11:53 DC Pharmacy Profile Note (Pharmacy Communication) 1 each ONCE MISC 01/23/25 13:00 01/23/25 13:09 DC Pharmacy Profile Note (Pharmacy Communication) 1 each ONCE MISC 01/24/25 08:00 01/24/25 07:51 DC Phenylephrine HCl 100 mg/Sodium Chloride 250 ml @ 0 mls/hr AD PRN IV TITRATE 01/22/25 17:00 02/21/25 16:59 01/23/25 09:30 0 MLS/HR Piperacillin Sod/ Tazobactam Sod (Zosyn 3.375gm+NS 50ml) 3.375 gm Q8H IV 01/26/25 12:30 02/05/25 12:29 01/30/25 13:40 3.375 GM Potassium Chloride 100 ml @ 50 mls/hr AD PRN IV POTASSIUM PROTOCOL 01/22/25 15:30 01/24/25 07:50 DC Potassium Chloride 100 ml @ 100 mls/hr AD PRN IV POTASSIUM PROTOCOL 01/22/25 15:30 02/21/25 15:29 01/27/25 12:44 100 MLS/HR Potassium Chloride (K-Dur/Klor-Con 20meq) 20 meq AD PRN PO POTASSIUM PROTOCOL 01/22/25 15:30 02/21/25 15:29 01/26/25 06:19 20 MEQ Potassium Chloride (KCl 10% Elixir 20meq/15ml) 20 meq AD PRN PO POTASSIUM PROTOCOL 01/22/25 15:30 02/21/25 15:01/29/25 08:35 20 MEQ Propofol (DIPRivan 1000MG/ 100ML) 1,000 mg PROTOCOL PRN IV SEDATION 01/22/25 12:00 01/22/25 11:55 DC Sodium Bicarbonate (Sodium Bicarbonate) 650 mg BID PO 01/24/25 21:00 02/23/25 20:59 01/30/25 09:33 650 MG Sodium Chloride 1,000 ml @ 150 mls/hr Q6H40M IV 01/22/25 12:00 01/23/25 10:56 DC 01/23/25 02:45 150 MLS/HR Sucralfate (Carafate) 1 gm BID PO 01/23/25 21:00 01/23/25 11:41 DC Sucralfate (Carafate) 1 gm QID PO 01/24/25 17:00 02/23/25 16:59 01/30/25 13:43 1 GM Sucralfate (Carafate) 1 gm TID PO 01/23/25 14:00 01/24/25 15:02 DC 01/24/25 13:28 1 GM Thiamine HCl 100 mg/Sodium Chloride 50 ml @ 100 mls/hr Q24H IV 01/23/25 14:00 01/25/25 14:29 DC 01/25/25 13:53 100 MLS/HR Vancomycin HCl (Vancomycin 750mg) 750 mg Q24H IVPB 01/23/25 17:00 01/23/25 10:56 DC Vancomycin HCl (Vancomycin Protocol) 1 each AD IV 01/22/25 15:00 01/23/25 10:56 DC Vasopressin 40 units/Sodium Chloride 40 ml @ 0 mls/hr PROTOCOL IV 01/25/25 09:30 02/24/25 09:29 Wound Care/ Dressing Products (Venelex Ointment) BID TP 01/25/25 21:00 01/25/25 15:58 DC DIAGNOSTICS / RADIOLOGY: [ ] ASSESSMENT: Hematemesis POA Hemorrhagic shock Acute hypoxic respiratory failure status post intubation for airway protection Peg tube placement Peptic ulcer disease DVT of bilateral upper limbs Starvation ketoacidosis Hypokalemia Unstageable wound on sacrum Fecal impaction Obesity BMI 36.6 fecal impaction Knee injury versus underlying CKD Diabetes mellitus type 2 with associated hyperglycemia Severe hypoalbuminemia Hypertension Debility Small pericardial Effusion Left-sided pleural effusion PLAN: Hematemesis, peptic ulcer disease, POA - patient to be admitted to ICU -in reference to hematemesis. We will check H&H q.4 hours. Patient to have type and screen. If hemoglobin is less than seven. Patient will be receiving blood transfusion. - The patient will continue on Protonix drip and octreotide drip. - EGD done by Gastroenterology and have reported no active bleeding and clots in esophagus. - On 01/25/2025 her hemoglobin is 5.9, we gave 1 PRBC. Repeat Hb is 7.4. -GI wanted to do another EGD and colonoscopy showed no evidence of bleeding. -Bleeding scan showed no evidence of gastrointestinal hemorrhage. -gastroenterology recommended follow with them in 1 week after discharge. - Today her hemoglobin is 8 -Critical care stopped her Protonix drip as she is fluid overloaded and they started protonix 40 mg b.i.d. -We will continue to follow recommendations from critical Care and Gastroenterology. Acute hypoxic respiratory failure status post intubation for airway protection - critical care is on board and we will follow critical care recommendations regarding ventilator and sedation protocol - currently on ACVC, TV 400, RR 18, Fio2 50%, PEEP 5. -On 01/27/2025, nurse told us that she will try to wake up the patient, extubate her and try spontaneous breathing trial. -The nurse tried to extubate her but she could not extubate as she is not waking up and she can't not protect her airway. Hemorrhagic shock - ON LEVOPHED AT 0.05 - continuing midazolam, fentanyl currently. - we will follow critical Care recommendations in managing hemorrhagic shock DVT of bilateral upper limbs -US doppler of both upper limbs, results showed evidence of DVT. -Consulted gastroenterology for anticoagulation recommendations. They recommended to give high dose Protonix drip for 48 hours and carafate 1gm PO QID and after 48 hours start heparin drip. -Patient is not a candidate for SVC filter. -for supratherapeutic aPTT, heparin drip was held temporarily Starvation ketoacidosis Today her blood work show that sodium is 146, potassium is 2.9, chloride is 113, bicarbonate is 20. Anion gap is 10. Her urinalysis showed ketones in the urine. Unstageable wound on sacrum - we will request wound care -Wound care recommended to cleanse with normal saline, pat dry, apply medihoney, cover with allevyn, change daily and prnKeep wounds clean and dry , Offloading/reposition q 2 hours Hypokalemia Today her blood work showed that potassium is 3.7. Will repeat her labs tomorrow. Diabetes mellitus type 2 with associated hyperglycemia, Severe hypoalbuminemia, Hypertension, Debility, Small pericardial Effusion, Left-sided pleural effusion - echo showed no pericardial effusion, LVEF of 50-55% - continue insulin sliding scale - continue thiamine supplementation - Continue patient on cefepime, metronidazole for broad coverage - monitor vitals Q8 - monitor a.m. labs - nephrology was consulted and they have recommended to discontinue vancomycin, obtain urine analysis and complete renal ultrasound. -Repeated urinalysis, urine electrolytes, urine protein on 01/24/2025. Urinalysis showed turbid urine, protein >300, ketones 5, moderate occult blood, moderate leukocyte esterase, RBC 6 to 10, WBC is TNTC, protein 410.9, sodium is 43, potassium is 36, chloride is 40. GI prophylaxis: Pantoprazole ATTESTATION BY PHYSICIAN I have seen and examined the patient. I reviewed the documentation, medical decision making, and treatment plan as noted by the resident provider above. I agree with the findings and plan of care. Saul Bales IV, MD, SUNIL MD Jan 30, 2025 14:12
[2025-01-30 14:18] LABS: ABG BASE EXCESS -5.9 mmol/L (-2.0-3.0); ABG HCO3 17.9 mmol/L (21.0-28.0); ABG OXYGEN SATURATION 98.0 % (94.0-98.0); ABG PCO2 29 mmHg (32-45); ABG PH 7.406 (7.350-7.450); CARBON MONOXIDE 0.3 % (0.5-1.5); DEVICE COMMENT RN JEMMA; PO2, ARTERIAL BG 125.9 mmHg (83.0-108.0); TEMPERATURE, CELSIUS BG 37.0 CELSIUS (35.5-37.0); VENT MODE, BG CPAP 5,10 (ROOM AIR)
--- NOTE | 2025-01-30 15:00 | NUR ---
Dr. Rick through the director biomedical engineering was made aware that patient is very oliguric, has showed her the urine output and also made aware that patient remained unresponsive to verbal stimuli but has a response to painful stimuli but not following commands.
--- NOTE | 2025-01-30 16:00 | NUR ---
Dr. Rick was notified again of the K level of 3.4 from the latest ABG and also made aware of the patient's oliguria in urine. No ordrs were given.
[2025-01-30 20:28] LABS: INR 1.44 (0.85-1.15)
--- NOTE | 2025-01-30 21:30 | HMCIMG ---
EXAM: CR Chest, 2 View. CLINICAL HISTORY: picc line placement COMPARISON: Radiograph dated January 30, 8:07 AM Findings: AP view of the chest is submitted. Endotracheal tube is in satisfactory position, tip terminates 4.4 cm above the arminda. Left PICC terminates overlying the SVC. Relatively unchanged left perihilar and left basilar airspace disease, and a small left pleural effusion. The right lung remains relatively clear. There is no pneumothorax. Heart size and pulmonary vessels appear within normal limits. IMPRESSION: 1. Left PICC terminates in the SVC. No pneumothorax. 2. Unchanged left perihilar and left basilar airspace disease with small left pleural effusion. /Jai
[2025-01-31] VITALS (59 sets, daily range): BP systolic 92–128; BP diastolic 44–69; PULSE 78–101; RESP 14–26; TEMP 97–97.8; O2SAT 97–100
[2025-01-31 03:24] LABS: IMMATURE GRANULOCYTE ABSOLUTE 0.05 K/uL (0-1); NUCLEATED RED BLOOD CELLS 1.0 % (0.0-0.19); PLATELET COUNT (AUTO) 193 K/uL (130-400); RED BLOOD CELL COUNT(AUTO) 2.54 MIL/uL (4.00-5.50); RED CELL DISTRIBUTION WIDTH 19.4 % (11.0-15.5); WHITE BLOOD COUNT (AUTO) 7.6 K/uL (4.8-10.8)
[2025-01-31 03:39] LABS: INR 1.48 (0.85-1.15)
[2025-01-31 03:40] LABS: ASPARTATE AMINOTRANSFERASE 32.0 U/L (10-37); CREATININE 2.8 mg/dL (0.5-1.0); GLOMERULAR FILTR. RATE CALC 18.0 mL/min (>90); GLUCOSE,RANDOM 280.0 mg/dL (70-105); SODIUM SERUM 144.0 mmol/L (136-145); TOTAL PROTEIN, SERUM 4.4 g/dL (6.0-8.3); UREA NITROGEN, BLOOD 31.0 mg/dL (7-18)
--- NOTE | 2025-01-31 08:44 | PN ---
GASTROENTEROLOGY PROGRESS NOTE Date of Visit: Jan 31, 2025 Time of Visit: 08:35 Events / Notes: [v[70 yo female patient with past medical history for seizures, hypertension, CVA, BKA, who presented to ER with hematemesis. Patient had had EGD with peg tube placement in November 2024 at [facility] AT THE [facility] and had had an EGD in December at [facility]S AT THE [facility] d/t hematemesis where she was found to have Grade D esophagitis. We were consulted for Hematemesis. Patient underwent an EGD on 01/23/25 and was found to have a non-bleeding tear was found in the lower third of esophagus. Large clot. No active bleeding. LA Grade D esophagitis. Diffuse moderately erythematous mucosa without bleeding in the stomach. A gastric tube was found in gastric body. Patient's WBC of 14.4, hemoglobin of 6.6, patient received 1 unit of PRBC and hemoglobin trended up to 7.1, hematocrit 21.7, platelets 367. Chemistry significant for chloride of 113, BUN 39, creatinine 2.4, glucose 153, calcium 7.0, iron 28, TIBC 44, 63.6% saturation, ferritin 1612. Total bilirubin, AST, ALT, alkaline phosphatase are normal. Total protein of 4.6, albumin 0.9. TSH 7.62. Troponin 507. Patient was found to have DVTs of the upper extremities. We were consulted for anticoagulant recommendations. 01/25/25: HGB trending down to 5.9 this am. Patient's nurse reports patient is having hematochezia. Hemoglobin trended up to 7.4 after 1 unit of RBCs transfused. WBCs at 11.2, platelets 273. Potassium 3.2, chloride 112, carbon dioxide 19, BUN 40, creatinine 2.6. Calcium 7.3, glucose 263, albumin 1.2, total protein 4.4. GI bleed scan showed no evidence of gastrointestinal hemorrhage during the examination acquisition. Plan for EGD and colonoscopy in am. Patient remains intubated. 01/27/25: Patient underwent an EGD and colonoscopy on 01/26/2025 and was found to have many superficial esophageal ulcers with no stigmata of recent bleeding were found. Clotted blood was found in the gastric fundus around 1 L of blood- tinged fluid suctioned from stomach revealing healthy gas gastric mucosa. There is evidence of an intact gastrostomy with a patent G-tube present in the gastric body this was characterized by ulceration. Normal examined duodenum. Colonoscopy findings show the perianal and digital rectal exams were normal. Normal mucosa was found in the entire colon. Old melena type blood found. Patient remains intubated and sedated. No family at bedside. 01/31/25: Patient remains intubated and sedated. FiO2 at 30 %. Patient's heparin has been held since 01/28/2025. Patient continues on pressors, Zosyn and linezolid. Patient's WBC of 7.6, hemoglobin 7.6, hematocrit 22.7 and platelets of 193. Chemistries significant for potassium of 3.2, carbon dioxide of 18, BUN of 31, creatinine 2.8, calcium 7.8, ALT 11 alkaline phosphatase of 451. Total bilirubin 0.4 AST 32, glucose of 280. Patient's total protein of 4.4 and albumin of 0.7. PT of 15.1, INR 1.48. Review of Systems: Unable to completed d/t patient's intubation status Physical Exam: GEN: Intubated and sedated CHEST: Lung auscultation revealed normal breath sounds bilaterally. CARDIAC:Heart sounds are regular. ABD: Soft, non-tender and not distended. Peg tube in place. EXT: Right BKA NEURO: Intubated and sedated. Vital Signs (last 8hr) Date Time Temp Pulse Resp B/P (MAP) Pulse Ox O2 Delivery O2 Flow Rate FiO2 01/31/25 06:22 98 30 01/31/25 04:30 94 15 97/48 (64) 100 01/31/25 04:15 97 14 94/50 (65) 100 01/31/25 04:00 97.9 96 16 101/49 (66) 100 01/31/25 04:00 30 01/31/25 04:00 100 Ventilator+ 30 01/31/25 03:54 100 30 01/31/25 03:45 93 15 96/48 (64) 100 01/31/25 03:30 96 16 98/47 (64) 100 01/31/25 03:15 91 17 101/49 (66) 100 01/31/25 03:00 99 14 104/60 (75) 100 01/31/25 02:45 99 16 110/59 (76) 100 01/31/25 02:30 97 15 111/58 (75) 100 01/31/25 02:15 99 17 109/63 (78) 100 01/31/25 02:00 97 16 109/56 (73) 100 01/31/25 01:45 101 17 109/57 (74) 100 01/31/25 01:30 97 16 109/51 (70) 100 01/31/25 01:19 94 30 01/31/25 01:15 97 16 113/62 (79) 100 01/31/25 01:00 93 15 110/58 (75) 100 30 01/31/25 00:45 96 15 100/49 (66) 100 Laboratory: [ ] Laboratory: Test 01/31/25 05:57 01/31/25 03:14 01/30/25 14:16 01/30/25 03:17 Range/Units Whole Blood Glucose 253 H 70-110 MG/DL White Blood Count 7.6 4.8-10.8 K/uL Red Blood Count 2.54 L 4.00-5.50 MIL/uL Hemoglobin 7.6 L 12.0-16.0 g/dL Hematocrit 22.7 L 36-48 % Mean Corpuscular Volume 89.4 79-99 fL Mean Corpuscular Hemoglobin 29.9 27.0-33.0 pg Mean Corpuscular Hemoglobin Concent 33.5 32.0-36.0 g/dL Red Cell Distribution Width 19.4 H 11.0-15.5 % Platelet Count 193 # 130-400 K/uL Mean Platelet Volume 11.1 H 7.5-10.5 fL Immature Granulocyte % (Auto) 0.7 0-1 % Neutrophils (%) (Auto) 70.6 40.0-77.0 % Lymphocytes (%) (Auto) 21.1 21.0-51.0 % Monocytes (%) (Auto) 4.7 3.0-13.0 % Eosinophils (%) (Auto) 2.2 0.0-8.0 % Basophils (%) (Auto) 0.7 0.0-5.0 % Neutrophils # (Auto) 5.4 1.8-7.7 K/uL Lymphocytes # (Auto) 1.6 1.0-4.8 K/uL Monocytes # (Auto) 0.4 0.1-1.0 K/uL Eosinophils # (Auto) 0.17 0.00-0.70 K/uL Basophils # (Auto) 0.05 0.00-0.20 K/uL Absolute Immature Granulocyte (auto 0.05 0-1 K/uL Nucleated Red Blood Cells 1.0 H 0.0-0.19 % Prothrombin Time 15.1 H 9.6-11.6 SEC Prothromb Time International Ratio 1.48 H 0.85-1.15 Activated Partial Thromboplast Time 63.4 H 26.3-35.5 SEC Sodium Level 144 136-145 mmol/L Potassium Level 3.2 L 3.5-5.1 mmol/L Chloride Level 111 101-111 mmol/L Carbon Dioxide Level 18 L 21-32 mmol/L Blood Urea Nitrogen 31 H 7-18 mg/dL Creatinine 2.8 H 0.5-1.0 mg/dL Glomerular Filtration Rate Calc 18 >90 mL/min Random Glucose 280 H 70-105 mg/dL Total Calcium 7.8 L 8.5-10.1 mg/dL Total Bilirubin 0.4 0.2-1.0 mg/dL Aspartate Amino Transf (AST/SGOT) 32 10-37 U/L Alanine Aminotransferase (ALT/SGPT) 11 #L 12-78 U/L Alkaline Phosphatase 451 H 50-136 U/L Total Protein 4.4 L 6.0-8.3 g/dL Albumin 0.7 #L 3.5-5.0 g/dL Blood Gas Specimen Type Arterial Arterial Blood pH 7.406 7.350-7.450 Arterial Blood Partial Pressure CO2 29 L 32-45 mmHg Arterial Blood Partial Pressure O2 125.9 H 83.0-108.0 mmHg Arterial Blood HCO3 17.9 L 21.0-28.0 mmol/L Arterial Blood Oxygen Saturation 98.0 94.0-98.0 % Arterial Blood Base Excess -5.9 L -2.0-3.0 mmol/L Hemoglobin (Blood Gas) 9.2 L 12.0-16.0 g/dL Sodium (Blood Gas) 140 136-145 MMOL/L Bedside Potassium (Blood Gas) 3.4 3.4-4.5 MMOL/L Bedside Chloride (Blood Gas) 113 H 98-107 MMOL/L Bedside Glucose (Blood Gas) 219 H 65-95 MG/DL Bedside Ionized Calcium (Blood Gas) 1.16 1.15-1.33 MMOL/L Bedside Lactic Acid (Blood Gas) 2.56 H 0.36-0.75 MMOL/L Blood Gas Temperature 37.0 35.5-37.0 CELSIUS Blood Gas Vent Mode CPAP 5,10 ROOM AIR FiO2 30.0 % Blood Gas PEEP 5 cm H2O Blood Gas Specimen Comment RN JOJO Phosphorus Level 2.5 2.5-4.9 mg/dL Magnesium Level 2.00 1.80-2.40 mg/dL Current Medications Medications (Trade) Dose Ordered Sig/Arik Route PRN Reason Start Time Stop Time Status Last Admin Dose Admin Albumin Human 50 ml @ 0 mls/hr Q8H6 IV 01/24/25 14:00 01/24/25 22:00 DC 01/24/25 20:45 1,200 MLS/HR Artificial Tears (Artificial Tears) 1 DROP OR AD Q8H OU 01/23/25 19:30 02/22/25 19:29 01/31/25 02:36 1 DROP Bumetanide (Bumex 1mg Vial) 1 mg ONCE PRN IVP AFTER TRANSFUSION 01/24/25 08:00 01/24/25 09:23 DC Bumetanide (Bumex 1mg Vial) 2 mg ONCE PRN IVP AFTER TRANSFUSION 01/24/25 14:00 01/24/25 14:00 DC 01/24/25 13:28 2 MG Cefepime HCl (MAXipime 2 gm vial) 2 gm Q24H IVPB 01/23/25 12:00 01/26/25 12:05 DC 01/26/25 11:38 2 GM Ceftriaxone Sodium (ROCEphine 1G INJ) 1 gm Q24H IVPB 01/22/25 12:00 01/22/25 16:25 DC 01/22/25 14:18 1 GM Chlorhexidine Gluconate (Peridex) 15 ml TID MM 01/23/25 21:00 02/06/25 20:59 01/30/25 20:18 15 ML Dexmedetomidine/ Sodium Chloride (PRECEdex 400MCG/ 100ML-NS) 400 mcg PROTOCOL IV 01/27/25 15:30 02/26/25 15:29 Dextrose (D50w) 50 ml AD PRN IV HYPOGLYCEMIA PROTOCOL 01/22/25 15:30 02/21/25 15:29 Fentanyl Citrate 100 ml @ 2.5 mls/hr PROTOCOL IV 01/22/25 12:00 01/22/25 11:55 DC Fentanyl Citrate 100 ml @ 2.5 mls/hr PROTOCOL IV 01/22/25 12:00 01/27/25 15:35 DC 01/27/25 05:34 2.5 MLS/HR Glucagon (Glucagon 1mg Kit) 1 mg AD PRN IM HYPOGLYCEMIA PROTOCOL 01/22/25 15:30 02/21/25 15:29 Heparin Sodium (Porcine) (HEParin 5,000 UNIT VIAL) *calculation based on ACTUAL B... AD PRN IV HEPARIN PROTOCOL 01/27/25 16:30 02/26/25 16:29 Heparin Sodium/ Dextrose 250 ml @ 0 mls/hr Q6H IV 01/27/25 16:30 02/26/25 16:29 01/28/25 12:38 11.39 MLS/HR Insulin Human Regular (humuLIN R 100 UNIT/ML 3ML) INSULIN SLIDING SCAL... ACHS SQ 01/22/25 21:00 01/25/25 20:51 DC 01/25/25 16:29 3 UNIT Insulin Human Regular (humuLIN R 100 UNIT/ML 3ML) INSULIN SLIDING SCAL... Q6H6 SQ 01/26/25 10:00 02/25/25 09:59 01/31/25 06:03 5 UNIT [facility]um [email or web address] 1 APPLICATION DAILY TP 01/26/25 09:00 02/25/25 08:59 01/30/25 09:33 1 APPL Levetiracetam (kepPRA 500 MG TABLET) 500 mg BID PO 01/22/25 21:00 01/22/25 22:13 DC Levetiracetam 500 mg/Sodium Chloride 100 ml @ 400 mls/hr Q12H9 IV 01/22/25 22:00 02/21/25 21:59 01/30/25 20:24 400 MLS/HR Levothyroxine Sodium (SYNTHroid VIAL 100MCG) 100 mcg SYN IV 01/23/25 06:30 02/22/25 06:29 01/31/25 06:02 100 MCG Linezolid 300 ml @ 150 mls/hr Q12H IV 01/24/25 08:00 02/03/25 07:59 01/30/25 20:18 150 MLS/HR Magnesium Sulfate 50 ml @ 0 mls/hr PROTOCOL PRN IV Hypomagnesemia 01/22/25 15:30 02/21/25 15:29 01/29/25 08:35 25 MLS/HR Metronidazole/ Sodium Chloride 100 ml @ 100 mls/hr Q8H6 IVPB 01/22/25 22:00 01/26/25 12:05 DC 01/26/25 06:13 100 MLS/HR Midazolam HCl 50 ml @ 0 mls/hr PROTOCOL IV 01/22/25 12:00 01/27/25 15:35 DC 01/27/25 09:10 5 MLS/HR Norepinephrine 250 ml @ 0 mls/hr PROTOCOL IV 01/22/25 10:00 01/23/25 09:52 DC 01/22/25 14:24 60 MLS/HR Norepinephrine Bitartrate (Norepineph 16 Mg/250ml NS Premix) per protocol PROTOCOL IV 01/23/25 10:00 02/22/25 09:59 01/28/25 17:15 16 MG Octreotide Acetate 1250 mcg/ Sodium Chloride 250 ml @ 0 mls/hr PROTOCOL IV 01/22/25 12:30 01/22/25 12:17 DC Octreotide Acetate 1250 mcg/ Sodium Chloride 250 ml @ 0 mls/hr PROTOCOL IV 01/22/25 12:30 01/24/25 09:23 DC 01/22/25 12:41 5 MLS/HR Pantoprazole Sodium (PROTonix 40MG INJ) 40 mg BID IVP 01/24/25 21:00 01/24/25 15:02 DC Pantoprazole Sodium (PROTonix 40MG INJ) 40 mg BID IVP 01/28/25 21:00 02/27/25 20:59 01/30/25 20:18 40 MG Pantoprazole Sodium 80 mg/ Sodium Chloride 100 ml @ 10 mls/hr Q10H IV 01/22/25 09:00 01/24/25 09:23 DC 01/24/25 09:17 10 MLS/HR Pantoprazole Sodium 80 mg/ Sodium Chloride 100 ml @ 10 mls/hr Q10H IV 01/24/25 15:00 01/28/25 13:39 DC 01/28/25 00:06 10 MLS/HR Pharmacy Profile Note (Pharmacy Communication) 1 each ONCE MISC 01/22/25 12:00 01/22/25 11:53 DC Pharmacy Profile Note (Pharmacy Communication) 1 each ONCE MISC 01/22/25 12:00 01/22/25 11:53 DC Pharmacy Profile Note (Pharmacy Communication) 1 each ONCE MISC 01/23/25 13:00 01/23/25 13:09 DC Pharmacy Profile Note (Pharmacy Communication) 1 each ONCE MISC 01/24/25 08:00 01/24/25 07:51 DC Phenylephrine HCl 100 mg/Sodium Chloride 250 ml @ 0 mls/hr AD PRN IV TITRATE 01/22/25 17:00 02/21/25 16:59 01/23/25 09:30 0 MLS/HR Piperacillin Sod/ Tazobactam Sod (Zosyn 3.375gm+NS 50ml) 3.375 gm Q8H IV 01/26/25 12:30 02/05/25 12:29 01/31/25 04:32 3.375 GM Potassium Chloride 100 ml @ 50 mls/hr AD PRN IV POTASSIUM PROTOCOL 01/22/25 15:30 01/24/25 07:50 DC Potassium Chloride 100 ml @ 100 mls/hr AD PRN IV POTASSIUM PROTOCOL 01/22/25 15:30 02/21/25 15:29 01/27/25 12:44 100 MLS/HR Potassium Chloride (K-Dur/Klor-Con 20meq) 20 meq AD PRN PO POTASSIUM PROTOCOL 01/22/25 15:30 02/21/25 15:29 01/26/25 06:19 20 MEQ Potassium Chloride (KCl 10% Elixir 20meq/15ml) 20 meq AD PRN PO POTASSIUM PROTOCOL 01/22/25 15:30 02/21/25 15:29 01/29/25 08:35 20 MEQ Propofol (DIPRivan 1000MG/ 100ML) 1,000 mg PROTOCOL PRN IV SEDATION 01/22/25 12:00 01/22/25 11:55 DC Sodium Bicarbonate (Sodium Bicarbonate) 650 mg BID PO 01/24/25 21:00 02/23/25 20:59 01/30/25 20:19 650 MG Sodium Chloride 1,000 ml @ 150 mls/hr Q6H40M IV 01/22/25 12:00 01/23/25 10:56 DC 01/23/25 02:45 150 MLS/HR Sucralfate (Carafate) 1 gm BID PO 01/23/25 21:00 01/23/25 11:41 DC Sucralfate (Carafate) 1 gm QID PO 01/24/25 17:00 02/23/25 16:59 01/30/25 20:19 1 GM Sucralfate (Carafate) 1 gm TID PO 01/23/25 14:00 01/24/25 15:02 DC 01/24/25 13:28 1 GM Thiamine HCl 100 mg/Sodium Chloride 50 ml @ 100 mls/hr Q24H IV 01/23/25 14:00 01/25/25 14:29 DC 01/25/25 13:53 100 MLS/HR Vancomycin HCl (Vancomycin 750mg) 750 mg Q24H IVPB 01/23/25 17:00 01/23/25 10:56 DC Vancomycin HCl (Vancomycin Protocol) 1 each AD IV 01/22/25 15:00 01/23/25 10:56 DC Vasopressin 40 units/Sodium Chloride 40 ml @ 0 mls/hr PROTOCOL IV 01/25/25 09:30 02/24/25 09:29 Wound Care/ Dressing Products (Venelex Ointment) BID TP 01/25/25 21:00 01/25/25 15:58 DC Diagnostics / Radiology: [COPY/PASTE HERE IF NO REPORTS PLEASE DELETE SECTION] Assessment: [Acute blood loss anemia LA grade D esophageal varices Esophageal tear ] Plan: Case discussed with Dr. Branch [Recommend trending hgb every 6 hours and transfuse as needed to goal HGB>7 Continue Protonix drip for the next 48 hours, then protonix 40mg IV bid. Carafate 1 gram via peg tube qid. Please call with questions, concerns, and change in clinical status and any s/s of any overt GI bleeding. Thank you for this consult. ] HORACIO RASHID NP Jan 31, 2025 08:44
[2025-01-31 09:38] LABS: INR 1.48 (0.85-1.15)
--- NOTE | 2025-01-31 10:29 | PN ---
[facility] PROGRESS NOTE Date Patient Seen: Jan 31, 2025 Time of Visit: 10:27 Supervising Physician: Dr Rivera Ramos Primary Care Physician: NANDO HUYNH Outpatient Specialists: [ ] Inpatient Consults: DR RAMOS, DR HEAD, DR SIMENTAL Assessment: Hemorrhagic shock and septic shock Acute complicated cystitis - ESBL to urine Acute hypoxemic respiratory failure (intubated) Deep vein thrombosis in the right subclavian and axillary veins and Right basilic vein thrombosis. UGIB with hematemesis Acute on chronic anemia 2nd to above Type II diabetes mellitus with hyperglycemia Dysphagia with G-tube Acute on chronic kidney disease Unstageable wound on sacrum Right BKA INTERVAL HISTORY: Patient seen and examined, all labs and imaging have been reviewed, Patient remains intubated, minimal vent settings, FiO2 is at 30%, chest x-ray is pending Good sats on ABG No family at bedside, nursing reports no acute events overnight, afebrile Patient is hemoglobin has remained stable and no signs of bleeding reported Patient is now off pressors Renal function continues to decline, she has been off sedation for greater than 48 hours, she is opening her eyes but is not tracking Plan: Vent management, ABG, chest x-ray , continuous spontaneous breathing trials CT scan of the head Following hemoglobin and transfusing as needed Following GI recs Following cultures, antibiotics Heparin drip for DVTs Total critical care time 48 minutes, patient remains critically ill, continues on pressor support along of with vent management. REVIEW OF SYSTEMS: Unable to obtain due to patient's intubated PHYSICAL EXAM: GENERAL: Critically ill intubated and sedated. HEENT: Sclera non icteric, dry mucosa NECK: Supple, no JVD, trachea midline LUNGS: Clear breath sounds bilaterally. No wheezes HEART: Regular rate and rhythm. Normal S1 and S2, without murmurs ABD: Abdomen soft, nontender. Bowel sounds present EXT: No clubbing cyanosis or edema, history of right BKA NEURO: Intubated and sedated Vital Signs (last 8hr) Date Time Temp Pulse Resp B/P (MAP) Pulse Ox O2 Delivery O2 Flow Rate FiO2 01/31/25 09:27 99 30 01/31/25 08:00 97.5 01/31/25 08:00 100 Ventilator+ 30 01/31/25 06:22 98 30 01/31/25 04:30 94 15 97/48 (64) 100 01/31/25 04:15 97 14 94/50 (65) 100 01/31/25 04:00 97.9 96 16 101/49 (66) 100 01/31/25 04:00 30 01/31/25 04:00 100 Ventilator+ 30 01/31/25 03:54 100 30 01/31/25 03:45 93 15 96/48 (64) 100 01/31/25 03:30 96 16 98/47 (64) 100 01/31/25 03:15 91 17 101/49 (66) 100 01/31/25 03:00 99 14 104/60 (75) 100 01/31/25 02:45 99 16 110/59 (76) 100 01/31/25 02:30 97 15 111/58 (75) 100 LABS: Hematology Labs: Test 01/31/25 03:14 Range/Units White Blood Count 7.6 4.8-10.8 K/uL Red Blood Count 2.54 L 4.00-5.50 MIL/uL Hemoglobin 7.6 L 12.0-16.0 g/dL Hematocrit 22.7 L 36-48 % Mean Corpuscular Volume 89.4 79-99 fL Mean Corpuscular Hemoglobin 29.9 27.0-33.0 pg Mean Corpuscular Hemoglobin Concent 33.5 32.0-36.0 g/dL Red Cell Distribution Width 19.4 H 11.0-15.5 % Platelet Count 193 # 130-400 K/uL Mean Platelet Volume 11.1 H 7.5-10.5 fL Immature Granulocyte % (Auto) 0.7 0-1 % Neutrophils (%) (Auto) 70.6 40.0-77.0 % Lymphocytes (%) (Auto) 21.1 21.0-51.0 % Monocytes (%) (Auto) 4.7 3.0-13.0 % Eosinophils (%) (Auto) 2.2 0.0-8.0 % Basophils (%) (Auto) 0.7 0.0-5.0 % Neutrophils # (Auto) 5.4 1.8-7.7 K/uL Lymphocytes # (Auto) 1.6 1.0-4.8 K/uL Monocytes # (Auto) 0.4 0.1-1.0 K/uL Eosinophils # (Auto) 0.17 0.00-0.70 K/uL Basophils # (Auto) 0.05 0.00-0.20 K/uL Absolute Immature Granulocyte (auto 0.05 0-1 K/uL Nucleated Red Blood Cells 1.0 H 0.0-0.19 % Chemistry Labs: Test 01/31/25 05:57 01/31/25 03:14 01/30/25 03:17 Range/Units Whole Blood Glucose 253 H 70-110 MG/DL Sodium Level 144 136-145 mmol/L Potassium Level 3.2 L 3.5-5.1 mmol/L Chloride Level 111 101-111 mmol/L Carbon Dioxide Level 18 L 21-32 mmol/L Blood Urea Nitrogen 31 H 7-18 mg/dL Creatinine 2.8 H 0.5-1.0 mg/dL Glomerular Filtration Rate Calc 18 >90 mL/min Random Glucose 280 H 70-105 mg/dL Total Calcium 7.8 L 8.5-10.1 mg/dL Total Bilirubin 0.4 0.2-1.0 mg/dL Aspartate Amino Transf (AST/SGOT) 32 10-37 U/L Alanine Aminotransferase (ALT/SGPT) 11 #L 12-78 U/L Alkaline Phosphatase 451 H 50-136 U/L Total Protein 4.4 L 6.0-8.3 g/dL Albumin 0.7 #L 3.5-5.0 g/dL Phosphorus Level 2.5 2.5-4.9 mg/dL Magnesium Level 2.00 1.80-2.40 mg/dL Coagulation Labs: Test 01/31/25 09:18 Range/Units Prothrombin Time 15.1 H 9.6-11.6 SEC Prothromb Time International Ratio 1.48 H 0.85-1.15 Activated Partial Thromboplast Time 65.2 H 26.3-35.5 SEC DIAGNOSTICS / RADIOLOGY RESULTS: [ ] PLAN NEURO: Minimize central acting medications as possible. Fall Precautions. Well lighted room through the day and minimize interruptions through the night to prevent acute delirium. PULMONARY: Supplemental 02 as needed Titrate Fio2 to keep Spo2 > or = 90% DuoNebs and CPT as needed IS hourly while awake for pulmonary hygiene Out of bed to chair as tolerated VAP Bundle Vent/BIPAP Settings: Assist-control volume control tidal volume of 400 respiratory rate of 18 FiO2 of 50% and PEEP of five. Maintain plateau pressure less than 30 CARDIOVASCULAR: Follow hemodynamics. Titrate vasopressor to keep MAP >65 or systolic blood pressure >95mmHg Drips: Fentanyl Versed Levophed Vasopressin Protonix Sandostatin LINES: Right femoral central line PICC line pending GI & NUTRITION: Continue nutritional support Aspirations precautions Prokinetic agents and laxatives as needed KIDNEYS & ELECTROLYTES: Strict monitoring of intake and output Daily weights Avoid nephrotoxic agents Monitor electrolytes and replace as needed Goal urine output of 30mL/hr or 0.5mL/kg/hr Urine output: [ ] Fluid Balance: [ ] ENDOCRINE: Maintain blood glucose between 100-180 at all times. Insulin sliding scale for blood glucose management INFECTIOUS DISEASE: Trend temperature. Leonard-culture if febrile. Micro: [ ] follow urine culture blood culture neg Antibiotics: [ ] cefepime flagyl zyvox HEMATOLOGY & COAGULATION: Monitor H&H. Keep Hgb > 7 Transfuse 1 unit of PRBC for Hgb < 7 Transfuse 1 pack of platelets of platelets < 20, 000 Watch for any signs and symptoms of bleeding SKIN: Pressure ulcer prevention per facility protocol Rehab: PT/OT Prophylaxis: GI: Protonix 40 mg b.i.d. DVT: SCDs avoid anticoagulants due to hematemesis Code Status: Full Resuscitation Disposition: [ ICU Case was discussed and seen with my supervising physician. The above plan was formulated and agreed upon. RERE BLAIR Jan 31, 2025 10:29
--- NOTE | 2025-01-31 12:13 | HMCIMG ---
EXAM: CR Chest, 1 View. CLINICAL HISTORY: pp COMPARISON: 01/30 20:49 EDT CR - CHEST 1VW FINDINGS: Essentially stable since prior exam. ETT tip 4 cm above arminda. Left PICC tip in SVC. stable left perihilar and left basilar airspace disease and small left pleural effusion. Right lung remains relatively clear. Negative for pneumothorax. Heart size, pulmonary vascularity and mediastinum within normal limits. PLEURAL SPACES: No evidence of pleural effusion or pneumothorax. MEDIASTINUM: Cardiac size and mediastinal contours within normal limits. BONES: No aggressive appearing osseous lesion seen. IMPRESSION: Stable chest. Support lines and tubes appear appropriate position and stable. Stable left perihilar and left basilar airspace disease and small left pleural effusion. Right lung remains clear. /[place]
--- NOTE | 2025-01-31 12:45 | PN ---
[facility] PROGRESS NOTE Date of Service: Jan 31, 2025 Time of Service: 8:30 SUBJECTIVE: 70-year-old female with past medical history of diabetes mellitus type 2, hypertension, anemia, history of CVA, history of right below-knee amputation who presented to the hospital secondary to hematemesis. Patient is currently intubated and sedated. The patient's history is mostly obtained from patient's who is present at bedside and from ED provider. The patient was noted to have black colored vomit at home which started yesterday. She has a history of peptic ulcer disease. She also has a PEG tube placed around two weeks ago. Peg tube was placed in [facility]. Per patient is able to swallow better now. denied any fever, chills, shortness for breath, chest pain. History is fairly limited at this time as patient is not able to participate in conversation. Labs were Notable for white count of 9.1, hemoglobin was 9.1, MCV was 86.7, platelet count was 456 K, sodium was 138, potassium was 3.1, bicarb was , creatinine was 1.7, glucose was 234, alk-phos was 153, total protein was 5.0, albumin was 0.9, lipase was negative normal Underwent a CT abdomen pelvis which showed no acute process in the CT abdomen without IV contrast. Patient was noted to have cystic structure in the right adrenal region measuring 5.9 x 3.9 cm. The patient also had fecal impaction n oted. In the ED patient had episode of hematemesis and she was intubated for airway protection by ED provider. 01/23/2025: The patient is examined at the bedside. She was sedated and not responsive during my visit. GI performed EGD in the morning and they have observed no active bleeding. Nurse notified an unstageable wound on sacrum for which Wound consult is placed today. We will be manage as per critical Care recommendations. 01/24/2025: The patient is examined at the bedside. She was sedated and not responsive during my visit. Her arms are swollen. Her vitals are normal except for blood pressure is 97/51. Her labs are in the normal range except for Hb is 6.6, chloride is 113, BUN is 39, creatinine is 2.4, iron is 28, TIBC is 44, % saturation is 63.6, TSH is 7.62. Her urine culture grew 10,000-50,000 CFU. Identification and susceptibility are in process. Blood culture show no growth after 48 hours. Renal ultrasound show renal parenchymal disease. As her hemoglobin is low she received a blood transfusion. After the transfusion her hemoglobin is 7.1. We ordered a bilateral upper limb doppler which showed evidence of DVT. Gastroenterology was consulted to give recommendations on starting anticoagulation. GI recommended high dose Protonix drip for 48 hours and carafate 1gm PO QID, after 48 hours start heparin drip. IR was called to ask about the option of placing an SVC filter, and they recommended mechanical thrombectomy. The patient is not a good candidate for an SVC filter. A urinalysis, urine electrolytes, urine protein were ordered today. Urinalysis showed turbid urine, protein >300, ketones 5, moderate occult blood, moderate leukocyte esterase, RBC 6 to 10, WBC is TNTC, protein 410.9, sodium is 43, p otassium is 36, chloride is 40. 01/25/2025: The patient is examined at the bedside. She was sedated and not responsive during my visit. Her arms are swollen. Her vitals are normal. Her labs are in the normal range except for Hb is 5.9, WBC is 11.2, Cl is 112, potassium is 3.2, CO2 is 19, BUN is 40 creatinine is 2.6. As her hemoglobin is low we gave a tr ansfusion and the repeat Hb is 7.4. Gastroenterology will do EGD and colonoscopy tomorrow morning. Hematology is consulted and they recommended same management. Wound care recommended to cleanse with normal saline, pat dry, apply medihoney, cover with allevyn, change daily and prnKeep wounds clean and dry , Offloading/reposition q 2 hours. Bleeding scan showed no evidence of gastrointestinal hemorrhage. 01/26/2025: The patient is examined at the bedside. She was sedated and not responsive during my visit. Her arms are swollen. Her vitals are normal except for blood pressure which is 96/45. Her labs are in the normal range except for Hb is 8.7, K is 2.8, Cl is 112, CO2 is 19, BUN is 37, creatinine is 2.5, Albumin is 1.1. She is scheduled for an EGD and colonoscopy today. We replaced the potassium and the repeat potassium levels are 2.8 and 3.1. 01/27/2025: Patient is examined at the bedside. She was sedated and not responsive during my visit. Her arms are swollen. Her vitals are normal except for blood pressure which is 94/49. Her labs are in the normal range except for hemoglobin is 8.7, potassium is 2.9, chloride is 112, BUN is 33, creatinine is 2.5, albumin is 1, CRP is 223.1. Urine culture showed ESBL which is sensitive to Zosyn, meropenem and levofloxacin. She underwent endoscopy and colonoscopy yesterday which showed no evidence of bleeding. Gastroenterology recommended to follow within 1 week after discharge. Chest x-ray showed minimal pulmonary congestion. The nurse told us that she will try waking up the patient, extubate her and try spontaneous breathing trial. 01/28/2025: Patient is seen and examined at the bedside. She was sedated and not responsive during my visit. Her vital signs are in the normal range except for blood pressure is 97/55. Labs are in the normal range except for hemoglobin is 8.3, WBCs 12.9, potassium is 3.2, chloride is 100, bicarb is 16, BUN is 33, creatinine is 2.5, glucose is 181, ALP is 154. Yesterday the nurse tried to extubate her but she could not extubate as she is not waking up and she can't not protect her airway. She is currently on heparin drip. Critical care stopped her Protonix drip as she is fluid overloaded and they started protonix 40 mg b.i.d. We will continue to follow recommendations from critical Care and Gastroenterology. 01/29/2025: Patient is seen and examined at the bedside. She was sedated and not responsive during my visit. Her vital signs are in the normal range except for blood pressure is 90/48. Labs are in the normal range except for hemoglobin 7.7, potassium 2.9, sodium 146, chloride 113, bicarbonate 20, BUN 33, creatinine 2.5. Chest x-ray showed that there is an infiltrate in the left lower lung with a left-sided pleural effusion. She is currently on heparin drip and Protonix 40 mg b.i.d. We will continue to follow recommendations from critical Care and Gastroenterology. 01/30/2025: She was evaluated at the bedside this morning. As per nurse she passed black tarry stool this morning. She is sedated and intubated at pain sitting tidal volume 400 mL/minute, FiO2 100%, peep 5 and RR 14. She is on pressor support with Levophed 0.05. The remarkable lab is for hemoglobin 8, ALP 321, albumin 0.8, creatinine 2.5, chloride 112, bicarbonate 20. She is continued on linezolid, Zosyn, levothyroxine, levetiracetam, Protonix, Levophed. Heparin drip held for temporarily because of supratherapeutic APTT. We will continue to follow recommendations from critical Care and Gastroenterology. 01/31/2025: She was seen and evaluated at the bedside this morning. As per nurse she passed greenish colored stool this morning. She is off sedation medicine but not responding to stimuli. CT brain has been ordered for further evaluation. She continues to remain intubated at tidal volume 400 mL/minute, FiO2 30%, peep 5 and RR 14. She is continued on linezolid, and Zosyn. Cr and BUN this morning have been 2.8 and 31 respectively. Urine output in past 24 hours have been 0.0 3ml/kg/hr (75ml). We have ordered ammonia levels this morning. We will continue to follow recommendations from critical Care and Gastroenterology. REVIEW OF SYSTEMS Unable to obtain as patient is sedated PHYSICAL EXAM GENERAL APPEARANCE: She is currently intubated and unresponsive this morning. NEUROLOGICAL: Unable to obtain. HEENT: Face is symmetric. Other examination couldn't be done. NECK: Supple. No submental, submandibular, pre-/postauricular, occipital or supraclavicular lymphadenopathy. CHEST: Normal chest expansion. LUNGS: Absence of any rales, rhonchi or any wheezing. CARDIOVASCULAR: Regular. S1 and S2 normal. No appreciable rubs, murmurs or gallops. ABDOMEN: Soft, nontender, and nondistended. There is no rebound, voluntary guarding, or rigidity. Patient has a PEG tube in place : Deferred. EXTREMITIES: Below-knee amputation of the right lower extremity SKIN: No skin breakdown. Vital Signs (last 8hr) Date Time Temp Pulse Resp B/P (MAP) Pulse Ox O2 Delivery O2 Flow Rate FiO2 01/31/25 11:06 30 01/31/25 11:00 94 14 106/59 (75) 100 01/31/25 10:00 86 14 101/48 (65) 99 01/31/25 09:27 99 30 01/31/25 09:00 90 14 103/53 (70) 100 01/31/25 08:00 97.5 01/31/25 08:00 100 Ventilator+ 30 01/31/25 08:00 89 15 92/52 (65) 100 01/31/25 07:00 97.5 91 15 98/44 (62) 100 01/31/25 06:22 98 30 LABS: Laboratory: Test 01/31/25 11:14 01/31/25 09:18 01/31/25 03:14 01/30/25 14:16 Range/Units Whole Blood Glucose 277 H 70-110 MG/DL Prothrombin Time 15.1 H 9.6-11.6 SEC Prothromb Time International Ratio 1.48 H 0.85-1.15 Activated Partial Thromboplast Time 65.2 H 26.3-35.5 SEC White Blood Count 7.6 4.8-10.8 K/uL Red Blood Count 2.54 L 4.00-5.50 MIL/uL Hemoglobin 7.6 L 12.0-16.0 g/dL Hematocrit 22.7 L 36-48 % Mean Corpuscular Volume 89.4 79-99 fL Mean Corpuscular Hemoglobin 29.9 27.0-33.0 pg Mean Corpuscular Hemoglobin Concent 33.5 32.0-36.0 g/dL Red Cell Distribution Width 19.4 H 11.0-15.5 % Platelet Count 193 # 130-400 K/uL Mean Platelet Volume 11.1 H 7.5-10.5 fL Immature Granulocyte % (Auto) 0.7 0-1 % Neutrophils (%) (Auto) 70.6 40.0-77.0 % Lymphocytes (%) (Auto) 21.1 21.0-51.0 % Monocytes (%) (Auto) 4.7 3.0-13.0 % Eosinophils (%) (Auto) 2.2 0.0-8.0 % Basophils (%) (Auto) 0.7 0.0-5.0 % Neutrophils # (Auto) 5.4 1.8-7.7 K/uL Lymphocytes # (Auto) 1.6 1.0-4.8 K/uL Monocytes # (Auto) 0.4 0.1-1.0 K/uL Eosinophils # (Auto) 0.17 0.00-0.70 K/uL Basophils # (Auto) 0.05 0.00-0.20 K/uL Absolute Immature Granulocyte (auto 0.05 0-1 K/uL Nucleated Red Blood Cells 1.0 H 0.0-0.19 % Sodium Level 144 136-145 mmol/L Potassium Level 3.2 L 3.5-5.1 mmol/L Chloride Level 111 101-111 mmol/L Carbon Dioxide Level 18 L 21-32 mmol/L Blood Urea Nitrogen 31 H 7-18 mg/dL Creatinine 2.8 H 0.5-1.0 mg/dL Glomerular Filtration Rate Calc 18 >90 mL/min Random Glucose 280 H 70-105 mg/dL Total Calcium 7.8 L 8.5-10.1 mg/dL Total Bilirubin 0.4 0.2-1.0 mg/dL Aspartate Amino Transf (AST/SGOT) 32 10-37 U/L Alanine Aminotransferase (ALT/SGPT) 11 #L 12-78 U/L Alkaline Phosphatase 451 H 50-136 U/L Total Protein 4.4 L 6.0-8.3 g/dL Albumin 0.7 #L 3.5-5.0 g/dL Blood Gas Specimen Type Arterial Arterial Blood pH 7.406 7.350-7.450 Arterial Blood Partial Pressure CO2 29 L 32-45 mmHg Arterial Blood Partial Pressure O2 125.9 H 83.0-108.0 mmHg Arterial Blood HCO3 17.9 L 21.0-28.0 mmol/L Arterial Blood Oxygen Saturation 98.0 94.0-98.0 % Arterial Blood Base Excess -5.9 L -2.0-3.0 mmol/L Hemoglobin (Blood Gas) 9.2 L 12.0-16.0 g/dL Sodium (Blood Gas) 140 136-145 MMOL/L Bedside Potassium (Blood Gas) 3.4 3.4-4.5 MMOL/L Bedside Chloride (Blood Gas) 113 H 98-107 MMOL/L Bedside Glucose (Blood Gas) 219 H 65-95 MG/DL Bedside Ionized Calcium (Blood Gas) 1.16 1.15-1.33 MMOL/L Bedside Lactic Acid (Blood Gas) 2.56 H 0.36-0.75 MMOL/L Blood Gas Temperature 37.0 35.5-37.0 CELSIUS Blood Gas Vent Mode CPAP 5,10 ROOM AIR FiO2 30.0 % Blood Gas PEEP 5 cm H2O Blood Gas Specimen Comment RN JOJO Test 01/30/25 03:17 Range/Units Phosphorus Level 2.5 2.5-4.9 mg/dL Magnesium Level 2.00 1.80-2.40 mg/dL Current Medications Medications (Trade) Dose Ordered Sig/Arik Route PRN Reason Start Time Stop Time Status Last Admin Dose Admin Albumin Human 50 ml @ 0 mls/hr Q8H6 IV 01/24/25 14:00 01/24/25 22:00 DC 01/24/25 20:45 1,200 MLS/HR Artificial Tears (Artificial Tears) 1 DROP OR AD Q8H OU 01/23/25 19:30 02/22/25 19:29 01/31/25 11:12 1 DROP Bumetanide (Bumex 1mg Vial) 1 mg ONCE PRN IVP AFTER TRANSFUSION 01/24/25 08:00 01/24/25 09:23 DC Bumetanide (Bumex 1mg Vial) 2 mg ONCE PRN IVP AFTER TRANSFUSION 01/24/25 14:00 01/24/25 14:00 DC 01/24/25 13:28 2 MG Cefepime HCl (MAXipime 2 gm vial) 2 gm Q24H IVPB 01/23/25 12:00 01/26/25 12:05 DC 01/26/25 11:38 2 GM Ceftriaxone Sodium (ROCEphine 1G INJ) 1 gm Q24H IVPB 01/22/25 12:00 01/22/25 16:25 DC 01/22/25 14:18 1 GM Chlorhexidine Gluconate (Peridex) 15 ml TID MM 01/23/25 21:00 02/06/25 20:59 01/31/25 08:30 15 ML Dexmedetomidine/ Sodium Chloride (PRECEdex 400MCG/ 100ML-NS) 400 mcg PROTOCOL IV 01/27/25 15:30 02/26/25 15:29 Dextrose (D50w) 50 ml AD PRN IV HYPOGLYCEMIA PROTOCOL 01/22/25 15:30 02/21/25 15:29 Fentanyl Citrate 100 ml @ 2.5 mls/hr PROTOCOL IV 01/22/25 12:00 01/22/25 11:55 DC Fentanyl Citrate 100 ml @ 2.5 mls/hr PROTOCOL IV 01/22/25 12:00 01/27/25 15:35 DC 01/27/25 05:34 2.5 MLS/HR Glucagon (Glucagon 1mg Kit) 1 mg AD PRN IM HYPOGLYCEMIA PROTOCOL 01/22/25 15:30 02/21/25 15:29 Heparin Sodium (Porcine) (HEParin 5,000 UNIT VIAL) *calculation based on ACTUAL B... AD PRN IV HEPARIN PROTOCOL 01/27/25 16:30 02/26/25 16:29 Heparin Sodium/ Dextrose 250 ml @ 0 mls/hr Q6H IV 01/27/25 16:30 02/26/25 16:29 01/28/25 12:38 11.39 MLS/HR Insulin Human Regular (humuLIN R 100 UNIT/ML 3ML) INSULIN SLIDING SCAL... ACHS SQ 01/22/25 21:00 01/25/25 20:51 DC 01/25/25 16:29 3 UNIT Insulin Human Regular (humuLIN R 100 UNIT/ML 3ML) INSULIN SLIDING SCAL... Q6H6 SQ 01/26/25 10:00 02/25/25 09:59 01/31/25 11:24 6 UNIT Leptospermum Honey (Medihoney) 1 APPLICATION DAILY TP 01/26/25 09:00 02/25/25 08:59 01/31/25 08:34 1 APPL Levetiracetam (kepPRA 500 MG TABLET) 500 mg BID PO 01/22/25 21:00 01/22/25 22:13 DC Levetiracetam 500 mg/Sodium Chloride 100 ml @ 400 mls/hr Q12H9 IV 01/22/25 22:00 02/21/25 21:59 01/31/25 08:32 400 MLS/HR Levothyroxine Sodium (SYNTHroid VIAL 100MCG) 100 mcg SYN IV 01/23/25 06:30 02/22/25 06:29 01/31/25 06:02 100 MCG Linezolid 300 ml @ 150 mls/hr Q12H IV 01/24/25 08:00 02/03/25 07:59 01/31/25 08:31 150 MLS/HR Magnesium Sulfate 50 ml @ 0 mls/hr PROTOCOL PRN IV Hypomagnesemia 01/22/25 15:30 02/21/25 15:29 01/29/25 08:35 25 MLS/HR Metronidazole/ Sodium Chloride 100 ml @ 100 mls/hr Q8H6 IVPB 01/22/25 22:00 01/26/25 12:05 DC 01/26/25 06:13 100 MLS/HR Midazolam HCl 50 ml @ 0 mls/hr PROTOCOL IV 01/22/25 12:00 01/27/25 15:35 DC 01/27/25 09:10 5 MLS/HR Norepinephrine 250 ml @ 0 mls/hr PROTOCOL IV 01/22/25 10:00 01/23/25 09:52 DC 01/22/25 14:24 60 MLS/HR Norepinephrine Bitartrate (Norepineph 16 Mg/250ml NS Premix) per protocol PROTOCOL IV 01/23/25 10:00 02/22/25 09:59 01/28/25 17:15 16 MG Octreotide Acetate 1250 mcg/ Sodium Chloride 250 ml @ 0 mls/hr PROTOCOL IV 01/22/25 12:30 01/22/25 12:17 DC Octreotide Acetate 1250 mcg/ Sodium Chloride 250 ml @ 0 mls/hr PROTOCOL IV 01/22/25 12:30 01/24/25 09:23 DC 01/22/25 12:41 5 MLS/HR Pantoprazole Sodium (PROTonix 40MG INJ) 40 mg BID IVP 01/24/25 21:00 01/24/25 15:02 DC Pantoprazole Sodium (PROTonix 40MG INJ) 40 mg BID IVP 01/28/25 21:00 02/27/25 20:59 01/31/25 08:30 40 MG Pantoprazole Sodium 80 mg/ Sodium Chloride 100 ml @ 10 mls/hr Q10H IV 01/22/25 09:00 01/24/25 09:23 DC 01/24/25 09:17 10 MLS/HR Pantoprazole Sodium 80 mg/ Sodium Chloride 100 ml @ 10 mls/hr Q10H IV 01/24/25 15:00 01/28/25 13:39 DC 01/28/25 00:06 10 MLS/HR Pharmacy Profile Note (Pharmacy Communication) 1 each ONCE MISC 01/22/25 12:00 01/22/25 11:53 DC Pharmacy Profile Note (Pharmacy Communication) 1 each ONCE MISC 01/22/25 12:00 01/22/25 11:53 DC Pharmacy Profile Note (Pharmacy Communication) 1 each ONCE MISC 01/23/25 13:00 01/23/25 13:09 DC Pharmacy Profile Note (Pharmacy Communication) 1 each ONCE MISC 01/24/25 08:00 01/24/25 07:51 DC Phenylephrine HCl 100 mg/Sodium Chloride 250 ml @ 0 mls/hr AD PRN IV TITRATE 01/22/25 17:00 02/21/25 16:59 01/23/25 09:30 0 MLS/HR Piperacillin Sod/ Tazobactam Sod (Zosyn 3.375gm+NS 50ml) 3.375 gm Q8H IV 01/26/25 12:30 02/05/25 12:29 01/31/25 04:32 3.375 GM Potassium Chloride 100 ml @ 50 mls/hr AD PRN IV POTASSIUM PROTOCOL 01/22/25 15:30 01/24/25 07:50 DC Potassium Chloride 100 ml @ 100 mls/hr AD PRN IV POTASSIUM PROTOCOL 01/22/25 15:30 02/21/25 15:29 01/27/25 12:44 100 MLS/HR Potassium Chloride (K-Dur/Klor-Con 20meq) 20 meq AD PRN PO POTASSIUM PROTOCOL 01/22/25 15:30 02/21/25 15:29 01/26/25 06:19 20 MEQ Potassium Chloride (KCl 10% Elixir 20meq/15ml) 20 meq AD PRN PO POTASSIUM PROTOCOL 01/22/25 15:30 02/21/25 15:29 01/29/25 08:35 20 MEQ Propofol (DIPRivan 1000MG/ 100ML) 1,000 mg PROTOCOL PRN IV SEDATION 01/22/25 12:00 01/22/25 11:55 DC Sodium Bicarbonate (Sodium Bicarbonate) 650 mg BID PO 01/24/25 21:00 02/23/25 20:59 01/31/25 08:30 650 MG Sodium Chloride 1,000 ml @ 150 mls/hr Q6H40M IV 01/22/25 12:00 01/23/25 10:56 DC 01/23/25 02:45 150 MLS/HR Sucralfate (Carafate) 1 gm BID PO 01/23/25 21:00 01/23/25 11:41 DC Sucralfate (Carafate) 1 gm QID PO 01/24/25 17:00 02/23/25 16:59 01/31/25 08:32 1 GM Sucralfate (Carafate) 1 gm TID PO 01/23/25 14:00 01/24/25 15:02 DC 01/24/25 13:28 1 GM Thiamine HCl 100 mg/Sodium Chloride 50 ml @ 100 mls/hr Q24H IV 01/23/25 14:00 01/25/25 14:29 DC 01/25/25 13:53 100 MLS/HR Vancomycin HCl (Vancomycin 750mg) 750 mg Q24H IVPB 01/23/25 17:00 01/23/25 10:56 DC Vancomycin HCl (Vancomycin Protocol) 1 each AD IV 01/22/25 15:00 01/23/25 10:56 DC Vasopressin 40 units/Sodium Chloride 40 ml @ 0 mls/hr PROTOCOL IV 01/25/25 09:30 02/24/25 09:29 Wound Care/ Dressing Products (Venelex Ointment) BID TP 01/25/25 21:00 01/25/25 15:58 DC DIAGNOSTICS / RADIOLOGY: PATIENT: JUSTIN KLINE MR#: [id number] : 1955 SEX: F AGE: 70 LOCATION: 2CH ORDER 3 STATUS: ADM IN REPORT#: [id number] SERVICE 1 REASON: pp ORDERING PHYSICIAN: RERE BLIAR PROCEDURE: CXR1VW - CHEST 1VW EXAM: CR Chest, 1 View. CLINICAL HISTORY: pp COMPARISON: 01/30 20:49 EDT CR - CHEST 1VW FINDINGS: Essentially stable since prior exam. ETT tip 4 cm above arminda. Left PICC tip in SVC. stable left perihilar and left basilar airspace disease and small left pleural effusion. Right lung remains relatively clear. Negative for pneumothorax. Heart size, pulmonary vascularity and mediastinum within normal limits. PLEURAL SPACES: No evidence of pleural effusion or pneumothorax. MEDIASTINUM: Cardiac size and mediastinal contours within normal limits. BONES: No aggressive appearing osseous lesion seen. IMPRESSION: Stable chest. Support lines and tubes appear appropriate position and stable. Stable left perihilar and left basilar airspace disease and small left pleural effusion. Right lung remains clear. /[place] DICTATED BY: RADHA BECERRA Jr., MD DATE: 01/31/251312 ELECTRONICALLY SIGNED BY: RADHA BECERRA Jr., MD DATE: 01/31/251312 ATIENT: JUSTIN KLINE MR#: [id number] : 1955 SEX: F AGE: 70 LOCATION: [facility] ORDER 1510 STATUS: ADM IN REPORT#: [id number] SERVICE 1508 REASON: HGB drop, assess for possible GI bleed ORDERING PHYSICIAN: KIRSTEN KRUSE MD PROCEDURE: GIBLEED - NM GI BLOOD LOSS IMAG Examination NM radiolabeled red blood cell study History Gastrointestinal bleeding Technique After IV administration of Tc-99m labeled red autologous blood cells, anterior projection images of the abdomen and pelvis were obtained dynamically for one hour. Findings Following administration of radiolabeled red blood cells, there is normal activity seen in cardiovascular and genitourinary structures, the liver and spleen. There is no evidence for extravasation of radiolabeled red blood cells during the examination. IMPRESSION: No evidence of gastrointestinal hemorrhage during the course of examination acquisition. /[place] DICTATED BY: RADHA BECERRA Jr., MD DATE: 01/25/251457 ELECTRONICALLY SIGNED BY: RADHA BECERRA Jr., MD DATE: 01/25/251457 ASSESSMENT: Hematemesis POA Hemorrhagic shock Acute complicated cystitis - ESBL Oliguria -urine output 0.03 mL/kg per hour Acute hypoxic respiratory failure status post intubation for airway protection Peg tube placement Peptic ulcer disease DVT of bilateral upper limbs Starvation ketoacidosis Hypokalemia Unstageable wound on sacrum Fecal impaction Obesity BMI 36.6 fecal impaction Knee injury versus underlying CKD Diabetes mellitus type 2 with associated hyperglycemia Severe hypoalbuminemia Hypertension Debility Small pericardial Effusion Left-sided pleural effusion PLAN: Hematemesis, peptic ulcer disease, POA - patient to be admitted to ICU -in reference to hematemesis. We will check H&H q.4 hours. Patient to have type and screen. If hemoglobin is less than seven. Patient will be receiving blood transfusion. - The patient will continue on Protonix drip and octreotide drip. - EGD done by Gastroenterology and have reported no active bleeding and clots in esophagus. - On 01/25/2025 her hemoglobin is 5.9, we gave 1 PRBC. Repeat Hb is 7.4. -GI wanted to do another EGD and colonoscopy showed no evidence of bleeding. -Bleeding scan showed no evidence of gastrointestinal hemorrhage. -gastroenterology recommended follow with them in 1 week after discharge. - Today her hemoglobin is 7.6 -Critical care stopped her Protonix drip as she is fluid overloaded and they started protonix 40 mg b.i.d. -We will continue to follow recommendations from critical Care and Gastroenterology. Acute hypoxic respiratory failure status post intubation for airway protection - critical care is on board and we will follow critical care recommendations regarding ventilator and sedation protocol - currently on ACVC, TV 400, RR 14, Fio2 30%, PEEP 5. -On 01/27/2025, nurse told us that she will try to wake up the patient, extubate her and try spontaneous breathing trial. -The nurse tried to extubate her but she could not extubate as she is not waking up and she can't not protect her airway. - CT scan of the brain and MRI brain without contrast have been ordered. - Ammonia levels showed 48. Hemorrhagic shock - ON LEVOPHED - we will follow critical Care recommendations in managing hemorrhagic shock - Vitals from today: 97/48, 94, 15 Oliguria - Patient's urine output from past 24 hours has been 0.03 mL/kg per hour. - Total urine output is75 mL. - Patient's creatinine and BUN from today are 2.8 and 31 respectively. - Monitor input and output as well as electrolytes. - Avoid nephrotoxic drugs. - Evaluate patient for volume overload and fluid repletion. Acute complicated cystitis - ESBL - Patient's urine culture came back positive for ESBL E coli - Patient is currently on Zosyn q.8h and linezolid q.12h. DVT of bilateral upper limbs -US doppler of both upper limbs, results showed evidence of DVT. -Consulted gastroenterology for anticoagulation recommendations. They recommended to give high dose Protonix drip for 48 hours and carafate 1gm PO QID and after 48 hours start heparin drip. -Patient is not a candidate for SVC filter. -for supratherapeutic aPTT, heparin drip was held temporarily Starvation ketoacidosis Today her blood work show that sodium is 146, potassium is 2.9, chloride is 113, bicarbonate is 20. Anion gap is 10. Her urinalysis showed ketones in the urine. Unstageable wound on sacrum - we will request wound care -Wound care recommended to cleanse with normal saline, pat dry, apply medihoney, cover with allevyn, change daily and prnKeep wounds clean and dry , Offloadi ng/reposition q 2 hours Hypokalemia Today her blood work showed that potassium is 3.2. Will repeat her labs tomorrow. Diabetes mellitus type 2 with associated hyperglycemia, Severe hypoalbuminemia, Hypertension, Debility, Small pericardial Effusion, Left-sided pleural effusion - echo showed no pericardial effusion, LVEF of 50-55% - continue insulin sliding scale - continue thiamine supplementation - Continue patient on cefepime, metronidazole for broad coverage - monitor vitals Q8 - monitor a.m. labs - nephrology was consulted and they have recommended to discontinue vancomycin, obtain urine analysis and complete renal ultrasound. -Repeated urinalysis, urine electrolytes, urine protein on 01/24/2025. Urinalysis showed turbid urine, protein >300, ketones 5, moderate occult blood, moderate leukocyte esterase, RBC 6 to 10, WBC is TNTC, protein 410.9, sodium is 43, potassium is 36, chloride is 40. GI prophylaxis: Pantoprazole ATTESTATION BY PHYSICIAN I have seen and examined the patient. I reviewed the documentation, medical decision making, and treatment plan as noted by the resident above. I agree with the findings and plan of care. VON ZAMORA MD, MUHAMMAD H MD Jan 31, 2025 12:45
--- NOTE | 2025-01-31 12:46 | PN ---
NEPHROLOGY PROGRESS NOTE Date/Time Patient Seen: Jan 31, 2025 SUBJECTIVE: This is a 70-year-old female with past medical history of diabetes mellitus type 2, hypertension, anemia, history of CVA, history of right below-knee amputation, chronic kidney disease with prior history of dialysis She presented to the hospital secondary to hematemesis. Patient is currently intubated and sedated. Most information was obtained from chart review. bedside nurse, and family due to patient's condition The patient was noted to have black colored vomit at home which started yesterday. She has a history of peptic ulcer disease. She was noted to have elevated BUN/creatinine. Continues on heparin drip Continues on antibiotics We are consulted for renal failure Renal function remains elevated Electrolytes are stable Iron panel was noted,S/p PRBC Imaging studies were noted Neurology was consulted due to deteriorating neurological status, recommend CT and MRI of the brain She was seen in the ICU, intubated Family at the bedside Condition is critical and guarded REVIEW OF SYSTEMS: Difficult to obtain given status of the patient who remains intubated mechanically ventilated Vital Signs (last 8hr) Date Time Temp Pulse Resp B/P (MAP) Pulse Ox O2 Delivery O2 Flow Rate FiO2 01/31/25 12:00 97.5 01/31/25 11:06 30 01/31/25 11:00 94 14 106/59 (75) 100 01/31/25 10:00 86 14 101/48 (65) 99 01/31/25 09:27 99 30 01/31/25 09:00 90 14 103/53 (70) 100 01/31/25 08:00 97.5 01/31/25 08:00 100 Ventilator+ 30 01/31/25 08:00 89 15 92/52 (65) 100 01/31/25 07:00 97.5 91 15 98/44 (62) 100 01/31/25 06:22 98 30 PHYSICAL EXAM: General: acutely ill, sedated, intubated, and mechanically ventilated HEENT: head is atraumatic, pupils equal and reactive, ET tube in place Neck: supple, no masses, no lymphadenopathy, no thyromegaly, no JVD Lungs: decreased breath sounds bilaterally, symmetrical chest movement Cardio: regular rate, S1 and S2 normal, no rub or gallop Abdomen: soft, non tender, no distension, no organomegaly Extremities: trace edema bilateral lower extremities, no cyanosis or clubbing Skin: no rashes or suspicious lesions Neuro: sedated Current Medications Medications (Trade) Dose Ordered Sig/Arik Route Start Time Stop Time Status Last Admin Dose Admin Albumin Human 50 ml @ 0 mls/hr Q8H6 IV 01/24/25 14:00 01/24/25 22:00 Artificial Tears (Artificial Tears) 1 DROP OR AD Q8H OU 01/23/25 19:30 02/22/25 19:29 01/24/25 12:13 1 DROP Cefepime HCl (MAXipime 2 gm vial) 2 gm Q24H IVPB 01/23/25 12:00 02/02/25 11:59 01/24/25 12:13 2 GM Ceftriaxone Sodium (ROCEphine 1G INJ) 1 gm Q24H IVPB 01/22/25 12:00 01/22/25 16:25 DC 01/22/25 14:18 1 GM Chlorhexidine Gluconate (Peridex) 15 ml TID MM 01/23/25 21:00 02/06/25 20:59 01/24/25 09:15 15 ML Fentanyl Citrate 100 ml @ 2.5 mls/hr PROTOCOL IV 01/22/25 12:00 01/22/25 11:55 DC Fentanyl Citrate 100 ml @ 2.5 mls/hr PROTOCOL IV 01/22/25 12:00 01/29/25 11:59 01/24/25 06:59 2.5 MLS/HR Insulin Human Regular (humuLIN R 100 UNIT/ML 3ML) INSULIN SLIDING SCAL... ACHS SQ 01/22/25 21:00 02/21/25 20:59 01/23/25 12:20 2 UNIT Levetiracetam (kepPRA 500 MG TABLET) 500 mg BID PO 01/22/25 21:00 01/22/25 22:13 DC Levetiracetam 500 mg/Sodium Chloride 100 ml @ 400 mls/hr Q12H9 IV 01/22/25 22:00 02/21/25 21:59 01/24/25 09:17 400 MLS/HR Levothyroxine Sodium (SYNTHroid VIAL 100MCG) 100 mcg SYN IV 01/23/25 06:30 02/22/25 06:29 01/24/25 05:34 100 MCG Linezolid 300 ml @ 150 mls/hr Q12H IV 01/24/25 08:00 02/03/25 07:59 01/24/25 09:15 150 MLS/HR Metronidazole/ Sodium Chloride 100 ml @ 100 mls/hr Q8H6 IVPB 01/22/25 22:00 02/01/25 21:59 01/24/25 05:34 100 MLS/HR Midazolam HCl 50 ml @ 0 mls/hr PROTOCOL IV 01/22/25 12:00 01/29/25 11:59 01/22/25 20:51 1 MLS/HR Norepinephrine 250 ml @ 0 mls/hr PROTOCOL IV 01/22/25 10:00 01/23/25 09:52 DC 01/22/25 14:24 60 MLS/HR Norepinephrine Bitartrate (Norepineph 16 Mg/250ml NS Premix) per protocol PROTOCOL IV 01/23/25 10:00 02/22/25 09:59 01/23/25 23:50 16 MG Octreotide Acetate 1250 mcg/ Sodium Chloride 250 ml @ 0 mls/hr PROTOCOL IV 01/22/25 12:30 01/22/25 12:17 DC Octreotide Acetate 1250 mcg/ Sodium Chloride 250 ml @ 0 mls/hr PROTOCOL IV 01/22/25 12:30 01/24/25 09:23 DC 01/22/25 12:41 5 MLS/HR Pantoprazole Sodium (PROTonix 40MG INJ) 40 mg BID IVP 01/24/25 21:00 02/23/25 20:59 Pantoprazole Sodium 80 mg/ Sodium Chloride 100 ml @ 10 mls/hr Q10H IV 01/22/25 09:00 01/24/25 09:23 DC 01/24/25 09:17 10 MLS/HR Pharmacy Profile Note (Pharmacy Communication) 1 each ONCE MISC 01/22/25 12:00 01/22/25 11:53 DC Pharmacy Profile Note (Pharmacy Communication) 1 each ONCE MISC 01/22/25 12:00 01/22/25 11:53 DC Pharmacy Profile Note (Pharmacy Communication) 1 each ONCE MISC 01/23/25 13:00 01/23/25 13:09 DC Pharmacy Profile Note (Pharmacy Communication) 1 each ONCE MISC 01/24/25 08:00 01/24/25 07:51 DC Sodium Chloride 1,000 ml @ 150 mls/hr Q6H40M IV 01/22/25 12:00 01/23/25 10:56 DC 01/23/25 02:45 150 MLS/HR Sucralfate (Carafate) 1 gm BID PO 01/23/25 21:00 01/23/25 11:41 DC Sucralfate (Carafate) 1 gm TID PO 01/23/25 14:00 02/22/25 20:59 01/24/25 09:15 1 GM Thiamine HCl 100 mg/Sodium Chloride 50 ml @ 100 mls/hr Q24H IV 01/23/25 14:00 01/25/25 14:29 01/23/25 14:05 100 MLS/HR Vancomycin HCl (Vancomycin 750mg) 750 mg Q24H IVPB 01/23/25 17:00 01/23/25 10:56 DC Vancomycin HCl (Vancomycin Protocol) 1 each AD IV 01/22/25 15:00 01/23/25 10:56 DC LABORATORY: [ ] Hematology Labs: Test 01/31/25 03:14 Range/Units White Blood Count 7.6 4.8-10.8 K/uL Red Blood Count 2.54 L 4.00-5.50 MIL/uL Hemoglobin 7.6 L 12.0-16.0 g/dL Hematocrit 22.7 L 36-48 % Mean Corpuscular Volume 89.4 79-99 fL Mean Corpuscular Hemoglobin 29.9 27.0-33.0 pg Mean Corpuscular Hemoglobin Concent 33.5 32.0-36.0 g/dL Red Cell Distribution Width 19.4 H 11.0-15.5 % Platelet Count 193 # 130-400 K/uL Mean Platelet Volume 11.1 H 7.5-10.5 fL Immature Granulocyte % (Auto) 0.7 0-1 % Neutrophils (%) (Auto) 70.6 40.0-77.0 % Lymphocytes (%) (Auto) 21.1 21.0-51.0 % Monocytes (%) (Auto) 4.7 3.0-13.0 % Eosinophils (%) (Auto) 2.2 0.0-8.0 % Basophils (%) (Auto) 0.7 0.0-5.0 % Neutrophils # (Auto) 5.4 1.8-7.7 K/uL Lymphocytes # (Auto) 1.6 1.0-4.8 K/uL Monocytes # (Auto) 0.4 0.1-1.0 K/uL Eosinophils # (Auto) 0.17 0.00-0.70 K/uL Basophils # (Auto) 0.05 0.00-0.20 K/uL Absolute Immature Granulocyte (auto 0.05 0-1 K/uL Nucleated Red Blood Cells 1.0 H 0.0-0.19 % Chemistry Labs: Test 01/31/25 11:14 01/31/25 03:14 01/30/25 03:17 Range/Units Whole Blood Glucose 277 H 70-110 MG/DL Sodium Level 144 136-145 mmol/L Potassium Level 3.2 L 3.5-5.1 mmol/L Chloride Level 111 101-111 mmol/L Carbon Dioxide Level 18 L 21-32 mmol/L Blood Urea Nitrogen 31 H 7-18 mg/dL Creatinine 2.8 H 0.5-1.0 mg/dL Glomerular Filtration Rate Calc 18 >90 mL/min Random Glucose 280 H 70-105 mg/dL Total Calcium 7.8 L 8.5-10.1 mg/dL Total Bilirubin 0.4 0.2-1.0 mg/dL Aspartate Amino Transf (AST/SGOT) 32 10-37 U/L Alanine Aminotransferase (ALT/SGPT) 11 #L 12-78 U/L Alkaline Phosphatase 451 H 50-136 U/L Total Protein 4.4 L 6.0-8.3 g/dL Albumin 0.7 #L 3.5-5.0 g/dL Phosphorus Level 2.5 2.5-4.9 mg/dL Magnesium Level 2.00 1.80-2.40 mg/dL Coagulation Labs: Test 01/31/25 09:18 Range/Units Prothrombin Time 15.1 H 9.6-11.6 SEC Prothromb Time International Ratio 1.48 H 0.85-1.15 Activated Partial Thromboplast Time 65.2 H 26.3-35.5 SEC DI[facility]NOSTICS / RADIOLOGY: [address] [address] IMAGING REPORT Signed PATIENT: JUSTIN KLINE MR#: [id number] : 1955 SEX: F AGE: 70 LOCATION: 2CH ORDER STATUS: ADM IN REPORT#: [id number] SERVICE 1 REASON: pp ORDERING PHYSICIAN: RERE BLAIR PROCEDURE: CXR1VW - CHEST 1VW EXAM: CR Chest, 1 View. CLINICAL HISTORY: pp COMPARISON: 01/30 20:49 EDT CR - CHEST 1VW FINDINGS: Essentially stable since prior exam. ETT tip 4 cm above arminda. Left PICC tip in SVC. stable left perihilar and left basilar airspace disease and small left pleural effusion. Right lung remains relatively clear. Negative for pneumothorax. Heart size, pulmonary vascularity and mediastinum within normal limits. PLEURAL SPACES: No evidence of pleural effusion or pneumothorax. MEDIASTINUM: Cardiac size and mediastinal contours within normal limits. BONES: No aggressive appearing osseous lesion seen. IMPRESSION: Stable chest. Support lines and tubes appear appropriate position and stable. Stable left perihilar and left basilar airspace disease and small left pleural effusion. Right lung remains clear. /[place] DICTATED BY: RADHA BECERRA Jr., MD DATE: 01/31/251312 ELECTRONICALLY SIGNED BY: RADHA BECERRA Jr., MD DATE: 01/31/251312 PATIENT: JUSTIN KLINE MR#: [id number] : 1955 SEX: F AGE: 70 LOCATION: 2CH ORDER 7 STATUS: ADM IN REPORT#: [id number] SERVICE 5 REASON: congestion,intubated ORDERING PHYSICIAN: RERE BLAIR PROCEDURE: CXR1VW - CHEST 1VW EXAM: CR Chest, 2 View. CLINICAL HISTORY: congestion,intubated COMPARISON: Yesterday FINDINGS: LUNGS: Endotracheal tube adequately positioned above level arminda. Left retrocardiac opacity could be due to pleural effusion/atelectasis. Pulmonary vascular congestion. PLEURAL SPACES: Small right pleural effusion. MEDIASTINUM: Cardiomegaly. BONES: No acute osseous abnormality. IMPRESSION: 1. Endotracheal tube adequately positioned above the arminda. 2. Left retrocardiac opacity, possibly due to pleural effusion or atelectasis. 3. Pulmonary vascular congestion. 4. Small right pleural effusion. 5. Cardiomegaly. /[place] DICTATED BY: KIMBERLEE FABIAN MD DATE: 01/30/251050 ELECTRONICALLY SIGNED BY: KIMBERLEE FABIAN MD DATE: 01/30/251050 PATIENT: JUSTIN KLINE MR#: [id number] : 1955 SEX: F AGE: 70 LOCATION: 2CH ORDER 0 STATUS: ADM IN REPORT#: [id number] SERVICE 9 REASON: intubated ORDERING PHYSICIAN: MISTI DAY APRN PROCEDURE: CXR1VW - CHEST 1VW CHEST 1VW REASON: intubated COMPARISON: Prior chest radiograph from 01/28/2025 is available. FINDINGS: Single view of the chest was obtained. They demonstrate mild cardiomegaly. There is uncoiling atherosclerotic change of thoracic aorta. The lung hassan demonstrate there is an infiltrate in the left lower lung with left-sided pleural effusion which appears to be worsening. The remaining lung hassan are clear. Endotracheal tube is unchanged in satisfactory position. There is mild elevation of the right hemidiaphragm.. Mediastinum and bony thorax appear unremarkable. The bony thorax demonstrate mild osteopenia.. IMPRESSION: 1. There is infiltrate annual in the left lower lung with left-sided pleural effusion 2. Mild cardiomegaly 3. Endotracheal tube in satisfactory position.. DICTATED BY: RENA MADDOX MD DATE: 01/29/251010 ELECTRONICALLY SIGNED BY: RENA MADDOX MD DATE: 01/29/251014 PATIENT: JUSTIN KLINE MR#: [id number] : 1955 SEX: F AGE: 70 LOCATION: 2CH ORDER 0834 STATUS: ADM IN REPORT#: [id number] SERVICE 0833 REASON: pp ORDERING PHYSICIAN: RERE BLAIR PROCEDURE: CXR1VW - CHEST 1VW CHEST 1VW REASON: pp COMPARISON: Prior study from 01/26/2025 is available. FINDINGS: Single view of the chest was obtained. Lungs are clear. There is groundglass appearance suggesting of left-sided pleural effusion. Heart size is normal. There is uncoiling atherosclerotic change of thoracic aorta. There is no pulmonary vascular congestion. The endotracheal tube is in satisfactory position. Mediastinum and bony thorax appear unremarkable. IMPRESSION: 1. No evidence of airspace consolidation or pulmonary venous congestion 2. There is suggestion of a left-sided dqrmd-so-dlsphgnl pleural effusion 3. Endotracheal tube in satisfactory position.. DICTATED BY: RENA MADDOX MD DATE: 01/28/251106 ELECTRONICALLY SIGNED BY: RENA MADDOX MD DATE: 01/28/25 111 PATIENT: JUSTIN KLINE MR#: [id number] : 1955 SEX: F AGE: 70 LOCATION: 2CH ORDER 2300 STATUS: ADM IN REPORT#: [id number] SERVICE 0600 REASON: vented pt ORDERING PHYSICIAN: KARL RODRIGUEZ PROCEDURE: CXR1VW - CHEST 1VW EXAM: XR Chest, 3 Views. CLINICAL HISTORY: 70-year-old female ventilated patient. COMPARISON: Prior exam from 01/25/2025 at 3:39 PM. FINDINGS: LUNGS: Minimal pulmonary congestion, new compared to the prior exam. PLEURAL SPACES: No pleural effusion or pneumothorax. HEART: Moderate cardiomegaly, somewhat more pronounced compared to the prior exam. BONES: No acute osseous abnormality. VASCULATURE: Atherosclerotic aorta. LINES AND TUBES: Endotracheal tube tip at the arminda. Recommendation for withdrawal of 1 to 2 cm. IMPRESSION: 1. Endotracheal tube tip at the arminda. Recommend withdrawal of 1 to 2 cm. 2. Moderate cardiomegaly, somewhat more pronounced compared to the prior exam. 3. Atherosclerotic aorta. 4. Minimal pulmonary congestion, new compared to the prior XR chest from 01/25/2025 at 3:39 PM. /[place] DICTATED BY: TOM SANCHEZ MD DATE: 01/26/252120 ELECTRONICALLY SIGNED BY: TOM SANCHEZ MD DATE: 01/26/252120 PATIENT: JUSTIN KLINE MR#: [id number] : 1955 SEX: F AGE: 70 LOCATION: 2CH ORDER 1539 STATUS: ADM IN REPORT#: [id number] SERVICE 153 REASON: picc placement ORDERING PHYSICIAN: RERE BLAIR PROCEDURE: CXR1VW - CHEST 1VW CHEST 1VW REASON: picc placement COMPARISON: Prior chest radiograph from 01/25/2025 at 1534 is available. FINDINGS: Single view of the chest was obtained. Lungs are clear. Heart size is normal. There is uncoiling atherosclerotic change of thoracic ureter. There is no pulmonary vascular congestion. Mediastinum and bony thorax appear unremarkable. There is a right-sided PIC catheter tip in superior vena cava at the cavoatrial junction. Endotracheal tube is in satisfactory position. IMPRESSION: 1. Support lines are in satisfactory position.. 2. No evidence of airspace consolidation or pulmonary venous congestion. DICTATED BY: RENA MADDOX MD DATE: 01/25/25 1558 ELECTRONICALLY SIGNED BY: RENA MADDOX MD DATE: 01/25/25 1604 PATIENT: JUSTIN KLINE MR#: [id number] : 1955 SEX: F AGE: 70 LOCATION: 2CH ORDER 1529 STATUS: ADM IN REPORT#: [id number] SERVICE 152 REASON: PICC placement ORDERING PHYSICIAN: RERE BLAIR PROCEDURE: CXR1VW - CHEST 1VW EXAM: XR Chest, 1 View. CLINICAL HISTORY: 70 year old female PICC placement right upper extremity. COMPARISON: None provided. FINDINGS: LUNGS: The lungs are clear. No consolidation. PLEURAL SPACES: No pleural effusion or pneumothorax. HEART: The heart size is enlarged. BONES: No acute osseous abnormality. LINES AND TUBES: PICC line with tip in the SVC. Endotracheal tube with tip in the arminda. VASCULATURE: Atherosclerotic aorta, similar to prior. IMPRESSION: 1. No acute cardiopulmonary pathology. 2. PICC line with tip in the SVC and endotracheal tube with tip in the arminda. /[place] DICTATED BY: TOM SANCHEZ MD DATE: 01/25/252108 ELECTRONICALLY SIGNED BY: TOM SANCHEZ MD DATE: 01/25/252108 PATIENT: JUSTIN KLINE MR#: [id number] : 1955 SEX: F AGE: 70 LOCATION: 2CH ORDER 230 STATUS: ADM IN REPORT#: [id number] SERVICE 06 REASON: vented pt ORDERING PHYSICIAN: KARL RODRIGUEZ PROCEDURE: CXR1VW - CHEST 1VW EXAM: XR Chest, 2 Views. CLINICAL HISTORY: 70-year-old female, ventilated. COMPARISON: 01/24/2025. FINDINGS: LUNGS: Atelectasis lung bases. PLEURAL SPACES: Left pleural effusion, similar to prior XR chest from 01/24/2025 at 4:48 am. HEART: The heart size is normal. BONES: No acute osseous abnormality. IMPRESSION: 1. Left pleural effusion, similar to prior XR chest from 01/24/2025 at 4:48 am. 2. Atelectasis lung bases. /[place] DICTATED BY: TOM SANCHEZ MD DATE: 01/25/252038 ELECTRONICALLY SIGNED BY: TOM SANCHEZ MD DATE: 01/25/252038 PATIENT: JUSTIN KLINE MR#: [id number] : 1955 SEX: F AGE: 70 LOCATION: 2CH ORDER 1510 STATUS: ADM IN REPORT#: [id number] SERVICE 1508 REASON: HGB drop, assess for possible GI bleed ORDERING PHYSICIAN: KIRSTEN KRUSE MD PROCEDURE: GIBLEED - NM GI BLOOD LOSS IMAG Examination NM radiolabeled red blood cell study History Gastrointestinal bleeding Technique After IV administration of Tc-99m labeled red autologous blood cells, anterior projection images of the abdomen and pelvis were obtained dynamically for one hour. Findings Following administration of radiolabeled red blood cells, there is normal activity seen in cardiovascular and genitourinary structures, the liver and spleen. There is no evidence for extravasation of radiolabeled red blood cells during the examination. IMPRESSION: No evidence of gastrointestinal hemorrhage during the course of examination acquisition. /[place] DICTATED BY: RADHA BECERRA Jr., MD DATE: 01/25/251457 ELECTRONICALLY SIGNED BY: RADHA BECERRA Jr., MD DATE: 01/25/251457 PATIENT: JUSTIN KLINE MR#: [id number] : 1955 SEX: F AGE: 70 LOCATION: 2CH ORDER 1143 STATUS: ADM IN REPORT#: [id number] SERVICE 1131 REASON: new onset swelling in her arms ORDERING PHYSICIAN: KIRSTEN KRUSE MD PROCEDURE: VENOUS ALCIDES - US VENOUS DOPPLER BILATERAL EXAMINATION: SPECTRAL DOPPLER ULTRASOUND EXAMINATION OF THE BILATERAL UPPER EXTREMITY VEINS. CLINICAL HISTORY: Swelling. COMPARISON: None. TECHNIQUE: Grayscale, color, and spectral Doppler images of the bilateral upper extremity veins are submitted. FINDINGS: Right: The cephalic and brachial veins are patent. These veins show normal flow with physiological changes of phasicity and augmentation. There is thrombosis in the subclavian, axillary, and basilic veins. Left: The internal jugular, subclavian, axillary, basilic, brachial veins are patent. These veins show normal flow with physiological changes of phasicity and augmentation. IMPRESSION: Deep vein thrombosis in the right subclavian and axillary veins. Right basilic vein thrombosis. The marine driller informed the patient's nurse at the time of the exam. /[place] DICTATED BY: GOVIND HAYES MD DATE: 01/25/25722 ELECTRONICALLY SIGNED BY: GOVIND HAYES MD DATE: 01/25/25722 PATIENT: JUSTIN KLINE MR#: [id number] : 1955 SEX: F AGE: 70 LOCATION: 2CH ORDER 2300 STATUS: ADM IN REPORT#: [id number] SERVICE 06 REASON: vented pt ORDERING PHYSICIAN: KARL RODRIGUEZ PROCEDURE: CXR1VW - CHEST 1VW EXAM: CR Chest, 1 View. CLINICAL HISTORY: vented pt COMPARISON: None provided. FINDINGS: LUNGS: Endotracheal tube midline above arminda Slight worsening left lower lobe infiltrate PLEURAL SPACES: No evidence of pleural effusion or pneumothorax. MEDIASTINUM: Cardiac size and mediastinal contours within normal limits. BONES: No acute osseous abnormality. IMPRESSION: 1. Endotracheal tube midline above arminda 2. Slight worsening left lower lobe infiltrate /[place] DICTATED BY: ANA ALSTON MD DATE: 01/24/252109 ELECTRONICALLY SIGNED BY: ANA ALSTON MD DATE: 01/24/252109 PATIENT: JUSTIN KLINE MR#: [id number] : 1955 SEX: F AGE: 70 LOCATION: 2CH ORDER 1301 STATUS: ADM IN REPORT#: [id number] SERVICE 1258 REASON: Decreased renal function ORDERING PHYSICIAN: SUAMYA ANTONIO PROCEDURE: RENAL - US RENAL SONOGRAM EXAMINATION: ULTRASOUND OF THE RETROPERITONEUM. CLINICAL HISTORY: Decreased renal function. COMPARISON: CT abdomen and pelvis without contrast dated 01/22/2025. TECHNIQUE: Real-time grayscale ultrasound images of the kidneys. FINDINGS: The right kidney is smaller in caliber, and the left kidney is normal in caliber, the right kidney measures 7.4 x 3.9 x 3.1 cm and the left kidney measures 8.2 x 3.0 x 3.3 cm in its craniocaudal, AP, and transverse dimensions respectively. There is normal renal cortical thickness and increased cortical echogenicity. There is no renal calculus or hydronephrosis. The urinary bladder is empty. There is Kamara???s bulb. IMPRESSION: Relatively small right kidney. Increased echogenicity of both the kidneys may reflect renal parenchymal disease. Recommend clinical correlation and with laboratory parameters. Kamara???s bulb is in situ. /[place] DICTATED BY: RADHA BECERRA Jr., MD DATE: 01/23/252300 ELECTRONICALLY SIGNED BY: RADHA BECERRA Jr., MD DATE: 01/23/252300 PATIENT: JUSTIN KLINE MR#: [id number] : 1955 SEX: F AGE: 70 LOCATION: [facility] ORDER 4 STATUS: ADM IN REPORT#: [id number] SERVICE REASON: intubated,congestion ORDERING PHYSICIAN: KARL RODRIGUEZ PROCEDURE: CXR1VW - CHEST 1VW EXAM: CR Chest, 1 View. CLINICAL HISTORY: intubated,congestion COMPARISON: 01/22 16:55 EDT CR - CHEST 1VW FINDINGS: ET tube 3.7 cm above the arminda. LUNGS: The lungs show no infiltrate or other acute finding. PLEURAL SPACES: No pleural effusion or pneumothorax. MEDIASTINUM: Cardiac size and mediastinal contours within normal limits. BONES: No acute osseous abnormality. IMPRESSION: No acute cardiopulmonary pathology is evident. ET tube 3.7 cm above the arminda. /[place] DICTATED BY: RADHA BECERRA Jr., MD DATE: 01/23/250 ELECTRONICALLY SIGNED BY: RADHA BECERRA Jr., MD DATE: 01/23/251009 PATIENT: JUSTIN KLINE MR#: [id number] : 1955 SEX: F AGE: 70 LOCATION: 2CH ORDER 23 STATUS: ADM IN REPORT#: [id number] SERVICE 22 REASON: NG tube location ORDERING PHYSICIAN: KENA HAWLEY MD PROCEDURE: ABD 1VW - ABD 1VW ADDENDUM REPORT ADDENDUM: Results were shared by telephone at 10:10 pm on 01-22-25 and acknowledged by KENA Rivas. /[place] EXAM: CR Abdomen, 1 View. CLINICAL HISTORY: NG tube location COMPARISON: None provided. FINDINGS: BOWEL: The bowel gas pattern is within normal limits. PERITONEUM/SOFT TISSUES: No free air evident. No pathologic appearing calcification. BONES: No acute osseous abnormality. MISCELLANEOUS: No nasogastric tube identified. Gastrostomy tube left upper IMPRESSION: 1. No nasogastric tube identified. 2. Gastrostomy tube left upper quadrant /[place] DICTATED BY: ANA ALSTON MD DATE: 01/22/252210 ELECTRONICALLY SIGNED BY: DATE: EXAM: CR Abdomen, 1 View. CLINICAL HISTORY: NG tube location COMPARISON: None provided. FINDINGS: BOWEL: The bowel gas pattern is within normal limits. PERITONEUM/SOFT TISSUES: No free air evident. No pathologic appearing calcification. BONES: No acute osseous abnormality. MISCELLANEOUS: No nasogastric tube identified. Gastrostomy tube left upper IMPRESSION: 1. No nasogastric tube identified. 2. Gastrostomy tube left upper quadrant /[place] DICTATED BY: ANA ALSTON MD DATE: 01/22/252200 ELECTRONICALLY SIGNED BY: ANA ALSTON MD DATE: 01/22/252200 PATIENT: JUSTIN KLINE MR#: [id number] : 1955 SEX: F AGE: 70 LOCATION: 2CH ORDER 50 STATUS: ADM IN REPORT#: [id number] SERVICE 49 REASON: post intubation CXR ORDERING PHYSICIAN: KARL RODRIGUEZ PROCEDURE: CXR1VW - CHEST 1VW ADDENDUM REPORT ADDENDUM: Results were shared by telephone at 6:33 pm on 01-22-25 and acknowledged by patient's nurse JESSICA Mas. /[place] EXAM: CR Chest, 2 View. CLINICAL HISTORY: post intubation CXR COMPARISON: None provided. FINDINGS: LUNGS: Endotracheal tube appears midline above arminda PLEURAL SPACES: No pleural effusion or pneumothorax. MEDIASTINUM: The cardiomediastinal silhouette is within normal limits. BONES: No acute osseous abnormality. MISCELLANEOUS: Question nasogastric tube in the thoracic inlet. IMPRESSION: 1. Endotracheal tube appears midline above arminda 2. Question nasogastric tube in the thoracic inlet. /[place] DICTATED BY: ANA ALSTON MD DATE: 01/22/25 183 ELECTRONICALLY SIGNED BY: DATE: EXAM: CR Chest, 2 View. CLINICAL HISTORY: post intubation CXR COMPARISON: None provided. FINDINGS: LUNGS: Endotracheal tube appears midline above arminda PLEURAL SPACES: No pleural effusion or pneumothorax. MEDIASTINUM: The cardiomediastinal silhouette is within normal limits. BONES: No acute osseous abnormality. MISCELLANEOUS: Question nasogastric tube in the thoracic inlet. IMPRESSION: 1. Endotracheal tube appears midline above arminda 2. Question nasogastric tube in the thoracic inlet. /[place] DICTATED BY: ANA ALSTON MD DATE: 01/22/251821 ELECTRONICALLY SIGNED BY: ANA ALSTON MD DATE: 01/22/251821 PATIENT: JUSTIN KLINE MR#: [id number] : 1955 SEX: F AGE: 70 LOCATION: 2CH ORDER 11 STATUS: ADM IN REPORT#: [id number] SERVICE 150 REASON: transaminitis rule out CBD dilation/obstruction cholangitis ORDERING PHYSICIAN: KARL RODRIGUEZ PROCEDURE: ABDRUQLTD - US ABDOMINAL RUQ\LTD EXAMINATION: ULTRASOUND OF THE ABDOMEN (LIMITED) WITH COLOR DOPPLER. CLINICAL HISTORY: Transaminitis. To rule out CBD obstruction. COMPARISON: CT abdomen and pelvis without contrast from the same day. TECHNIQUE: Real-time grayscale ultrasound images of the abdomen. In addition, color Doppler is medically necessary to perform in order to evaluate vascularity and blood flow. FINDINGS: Liver: Normal in caliber, the right hepatic lobe measures 15.4 cm in the craniocaudal dimension. There is increased echogenicity of the hepatic parenchyma. There is no focal hepatic abnormality or intrahepatic biliary ductal dilatation. There is normal spectral Doppler of the main portal vein. Gallbladder: Within normal limits with normal wall thickness (0.22 cm). No hyperemia or pericholecystic free fluid. There are few calculi, the largest measure 1.5 cm. Common bile duct is normal in caliber, measuring 0.28 cm. Pancreas: Obscured by overlying bowel gas. The right kidney is normal in caliber, the right kidney measures 8.2 x 3.3 x 2.9 cm in craniocaudal, AP, and transverse dimensions respectively. There is normal renal cortical thickness, and cortical echogenicity. There is no renal calculus or hydronephrosis. IMPRESSION: Hepatic steatosis. Cholelithiasis. No cholecystitis. /[place] DICTATED BY: GOVIND HAYES MD DATE: 01/23/25856 ELECTRONICALLY SIGNED BY: GOVIND HAYES MD DATE: 01/23/25856 PATIENT: JUSTIN KLINE MR#: [id number] : 1955 SEX: F AGE: 70 LOCATION: 2C ORDER 26 STATUS: ADM IN REPORT#: [id number] SERVICE 25 REASON: PERICARDIAL EFFUSION. Please also assess EF ORDERING PHYSICIAN: KENA HAWLEY MD PROCEDURE: [facility] - ECHO 2-D COMPLETE APPROVED REPORT EXAM: Two-dimensional and M-mode echocardiogram with Doppler and color Doppler. INDICATION ICD: Assess pericardial effusion and ejection fraction 2D Dimensions RVDd 3.0 cm LVEF(%) 49.3 (>50%) LVED Vol(simp.) 20.0 mL IVSd 1.9 (0.7-1.1cm) FS(%) 23 % LVES Vol(simp.) 9.0 mL LVDd 2.4 (3.8-5.6cm) LA (2D) 2.6 (1.6-4.0cm) LVEF(%, simp.) 55 % PWd 2.0 (0.7-1.1cm) Ao Root(2D) 2.7 (2.0-3.7cm) LA ESV INDEX (BP) 22.00 mL/m2 IVSs 2.0 cm LVOT diam 2.0 (1.8-2.4cm) LVDs 1.8 (2.5-4.0cm) IVC diam 1.2 cm PWs 1.7 cm Deformation Strain Apical 4 -7.1 % Apical 2 -6.9 % Apical 3 -10.1 % Global Strain -8.0 % M-Mode Dimensions EPSS 0.8 cm LA (MM) 2.3 (1.6-4.0cm) Ao Root(MM) 2.9 (2.0-3.7cm) Aortic Valve AoV Vmax 2.1 m/s Ao Peak GR 17.0 mmHg LVOT Vmax 2.1 m/s AoV VTI 0.2 m Ao Mean GR 8.4 mmHg LVOT VTI 0.22 m YASMEEN (VMAX) 3.02 cm2 YASMEEN (VTI) 3.6 cm2 Mitral Valve MV E Vmax 51.6 cm/s DECEL Time 82 ms MV A Vmax 69.0 cm/s P 1/2 T 19 ms E/A ratio 0.7 MVA (PHT) 11.9 cm2 TDI E/E' Medial 6.8 E/E' Lateral 9.3 Medial E' Peak V 7.57 cm/s Lateral E' Peak V 5.54 cm/s Pulmonary Valve PV Vmax 1.3 m/s PV VTI 0.14 m PV Mean GR 3.5 mmHg PV Peak GR 6.5 mmHg Tricuspid Valve TR Vmax 1.5 m/s RAP (EST) 3 mmHg RVSP 12.4 mmHg TR Peak GR 9.4 mmHg Left Ventricle Left ventricular cavity is small. GLS -8.0% Severe concentric left ventricular hypertrophy. LVEF is 50-55%. The left ventricular diastolic function is normal. Right Ventricle The right ventricle is normal size. The right ventricular systolic function is normal. Atria The left atrium size is normal. The right atrium is small in size. Aortic Valve The aortic valve is normal in structure. No aortic regurgitation is present. There is no aortic valvular stenosis. Mitral Valve The mitral valve is normal in structure. There is trace of mitral valve regurgitation noted. There is no mitral valve stenosis. Tricuspid Valve The tricuspid valve is normal in structure. There is trace of tricuspid valve regurgitation noted. Pulmonic Valve Pulmonic valve is not well visualized. There is no pulmonic valvular regurgitation. Great Vessels The aortic root is normal in size. The IVC is normal in size and collapses >50% with inspiration. Pericardium There is no pericardial effusion. Other Information Quality : Technically difficult study due to body habitus, pt intubated Rhythm : Tachycardia Conclusion LVEF is 50-55%. Severe concentric left ventricular hypertrophy. The left ventricular diastolic function is normal. There is no pericardial effusion. DICTATED BY: GIULIANA AWAN DO DATE: 01/22/25 1318 ELECTRONICALLY SIGNED BY: GIULIANA AWAN DO DATE: 01/23/25 0733 PATIENT: JUSTIN KLINE MR#: [id number] : 1955 SEX: F AGE: 70 LOCATION: [facility] ORDER 1152 STATUS: ADM IN REPORT#: [id number] SERVICE 1151 REASON: S/P INTUBATION. ET tube position ORDERING PHYSICIAN: KENA HAWLEY MD PROCEDURE: CXR1VW - CHEST 1VW EXAM: CR Chest, 2 View. CLINICAL HISTORY: S/P INTUBATION. ET tube position COMPARISON: Radiograph from January 22 at 8:53 AM FINDINGS: Endotracheal tube terminates 1.4 cm above the arminda. LUNGS: There is no mass, infiltrate, or acute pulmonary abnormality. PLEURAL SPACES: No pleural effusion or pneumothorax. MEDIASTINUM: Cardiac size and mediastinal contours within normal limits. Atherosclerosis of the thoracic aorta. BONES: No acute osseous abnormality. IMPRESSION: 1. Endotracheal tube positioned 1.4 cm above the arminda. 2. No acute cardiopulmonary abnormality. /[place] DICTATED BY: RADHA BECERRA Jr., MD DATE: 01/22/251309 ELECTRONICALLY SIGNED BY: RADHA BECERRA Jr., MD DATE: 01/22/251309 PATIENT: JUSTIN KLINE MR#: [id number] : 1955 SEX: F AGE: 70 LOCATION: [facility] ORDER 8 STATUS: [facility] REPORT#: [id number] SERVICE REASON: gi bleed ORDERING PHYSICIAN: JULISA PETERSON MD PROCEDURE: ABD PEL WO - CT ABDOMEN/PELVIS W/O CONTRAST CT ABDOMEN/PELVIS W/O CONTRAST REASON: gi bleed COMPARISON: None. FINDINGS: Lung bases are clear. There is a small left-sided pleural effusion. There is coronary calcifications suggesting coronary artery disease. There is suggestion of small pericardial effusion. There is a moderate size hiatal hernia. . There are no focal liver lesions. There are normal-appearing kidneys.. Spleen and pancreas appear unremarkable. The gallbladder appears normal as well. There is a feeding gastrostomy tube in place. Bowel loops appear unremarkable. This includes normal appearance of the appendix . There is fecal stasis in the rectal vault. Abutting the right lobe of the bowel in the right lower quadrant and abutting the right psoas muscle there is a a cystic structure measuring 5.9 x 3.9 cm. There is no evidence of free fluid or intraperitoneal air. There are no focal fluid collections. The retroperitoneum appear normal as do pelvic soft tissue structures. Aorta and iliac vessels demonstrate diffuse atherosclerotic changes. The anterior abdominal wall is intact. Osseous structures appear unremarkable. The uterus is surgically absent. IMPRESSION: 1. No acute process seen in CT of abdomen and pelvis without intravenous contrast 2. In the right adnexal region there is a cystic structure measuring 5.9 x 3.9 cm 3. Fecal stasis impaction seen in the rectal vault CT was performed with one or more following dose reduction techniques: automated exposure control, adjustment of the mA and kv according to patient's size, or use of a iterative reconstruction technique. DICTATED BY: RENA MADDOX MD DATE: 01/22/25 1044 ELECTRONICALLY SIGNED BY: RENA MADDOX MD DATE: 01/22/25 1051 PATIENT: JUSTIN KLINE MR#: [id number] : 1955 SEX: F AGE: 70 LOCATION: [facility] ORDER 8 STATUS: [facility] REPORT#: [id number] SERVICE 7 REASON: gi bleed ORDERING PHYSICIAN: JULISA PETERSON MD PROCEDURE: ABD PEL WO - CT ABDOMEN/PELVIS W/O CONTRAST CT ABDOMEN/PELVIS W/O CONTRAST REASON: gi bleed COMPARISON: None. FINDINGS: Lung bases are clear. There is a small left-sided pleural effusion. There is coronary calcifications suggesting coronary artery disease. There is suggestion of small pericardial effusion. There is a moderate size hiatal hernia. . There are no focal liver lesions. There are normal-appearing kidneys.. Spleen and pancreas appear unremarkable. The gallbladder appears normal as well. There is a feeding gastrostomy tube in place. Bowel loops appear unremarkable. This includes normal appearance of the appendix . There is fecal stasis in the rectal vault. Abutting the right lobe of the bowel in the right lower quadrant and abutting the right psoas muscle there is a a cystic structure measuring 5.9 x 3.9 cm. There is no evidence of free fluid or intraperitoneal air. There are no focal fluid collections. The retroperitoneum appear normal as do pelvic soft tissue structures. Aorta and iliac vessels demonstrate diffuse atherosclerotic changes. The anterior abdominal wall is intact. Osseous structures appear unremarkable. The uterus is surgically absent. IMPRESSION: 1. No acute process seen in CT of abdomen and pelvis without intravenous contrast 2. In the right adnexal region there is a cystic structure measuring 5.9 x 3.9 cm 3. Fecal stasis impaction seen in the rectal vault CT was performed with one or more following dose reduction techniques: automated exposure control, adjustment of the mA and kv according to patient's size, or use of a iterative reconstruction technique. DICTATED BY: RENA MADDOX MD DATE: 01/22/251043 ELECTRONICALLY SIGNED BY: RENA MADDOX MD DATE: 01/22/25 105 PATIENT: JUSTIN KLINE MR#: [id number] : 1955 SEX: F AGE: 70 LOCATION: [facility] ORDER 9 STATUS: [facility] REPORT#: [id number] SERVICE 7 REASON: cp ORDERING PHYSICIAN: UJLISA PETERSON MD PROCEDURE: CXR1VW - CHEST 1VW EXAM: Chest radiograph 1 view HISTORY: Chest pain COMPARISON: None FINDINGS: No pulmonary consolidations. No pleural effusion or pneumothorax. Enlarged cardiac silhouette. Tortuous calcified aorta. No overt congestion. Degenerative changes. IMPRESSION: No acute cardiopulmonary disease. /[place] DICTATED BY: DESTINY CASTELLANOS MD DATE: 01/22/251058 ELECTRONICALLY SIGNED BY: DESTINY CASTELLANOS MD DATE: 01/22/251058 ASSESSMENT: Acute renal failure Anemia Septic shock requiring pressors, POA Acute metabolic encephalopathy POA Acute Hypoxic rep failure requiring intubation for airway protection POA Acute complicated cystitis POA Acute on chronic anemia 2/ GI Bleed (Hematemesis) POA Hyperglycemia in the presence of type 2 diabetes mellitus, POA right adnexal region there is a cystic structure measuring 5.9 x 3.9 cm Thrombocytosis Hypokalemia Electrolyte derangement (hypokalemia, hypocalcemia) severe Hypoalbuminemia Malnutrition Transaminitis Elevated TSH suspected myxedema Uncontrolled type 2 diabetes mellitus Essential hypertension Anemia Prior history of CVA Right [id number] amputation G-tube in situ Bed ridden Recent hospitalization [facility] for hematemesis PLAN: Labs, diagnostic, radiologic exams reviewed and interpreted by myself and supervising physician. We have reviewed external records in detail Pending further Neurology recommendations Start Epogen 32014 units subQ weekly, 1st dose now Require close monitoring of renal function and electrolytes Order CBC, CMP, and electrolytes in am Continue with antibiotics Continue mechanical ventilation and sedation Continue with IV pressors Monitor blood pressure adjust medication doses as needed Avoid hypotensive episodes May use Dilaudid 0.5 mg IV every 6 hours as needed for severe pain Monitor blood sugars Strict intake, output, and daily weight should be monitored Please renally adjust medications Avoid nephrotoxic and nonsteroidal drugs Avoid contrast if possible Will continue to monitor renal function, anemia, electrolytes Treatment plan discussed with patient Questions were answered We have discussed with the other team physicians in detail about the care plan We will continue to monitor the patient closely Total critical care time spent with patient, nursing staff, critical care team over 35 minutes ATTESTATION BY PHYSICIAN I have seen and examined the patient. I reviewed the documentation, medical decision making, and treatment plan as noted by the mid-level provider above. I agree with the findings and plan of care. CHRISTELLE SIMENTAL MD, [facility] Jan 31, 2025 12:46
--- NOTE | 2025-01-31 13:43 | NUR ---
MRI NOTIFIED OF ORDER
[2025-01-31] MEDS: EPOETIN ALFA-EPBX (NON-ESRD) 10,000 UNIT/ML VIAL SQ SCH (15:16)
--- NOTE | 2025-01-31 16:00 | NUR ---
telephone consent for MRI obtained from patient's spouse with witness nurse Nakia JIMENEZ.
--- NOTE | 2025-01-31 16:32 | HMCIMG ---
EXAM: CT Head Without IV contrast. CLINICAL HISTORY: UNRESPONSIVE TECHNIQUE: Axial computed tomography images of the head/brain without intravenous contrast. COMPARISON: None provided. FINDINGS: BRAIN: There is diffuse cerebral atrophy, evidenced by prominence of the cortical sulci and ventricular system, compatible with age-related changes. There is evidence of chronic small vessel ischemic change characterized by bilateral periventricular and deep white matter hypodensities. Ill-defined hypodensity with loss of rodriguez-white matter interface in the right frontal and high parietal lobes concerning for a possible infarct. No evidence of acute hemorrhage. No mass lesion. No midline shift or extra-axial collections. VENTRICLES: No hydrocephalus. ORBITS: The orbits are unremarkable. SINUSES AND MASTOIDS: Mucosal thickening in bilateral sphenoidal sinuses. The rest of the Paranasal sinuses and mastoid air cells are clear. BONES: No fracture. SOFT TISSUES: Unremarkable. IMPRESSION: 1. Ill-defined hypodensity with loss of rodriguez-white matter interface in the right frontal and high parietal lobes concerning for possible infarct. Consider MRI 2. No acute intracranial hemorrhage. /[place]
--- NOTE | 2025-01-31 16:45 | NUR ---
folowing up with MRI. no answer.
--- NOTE | 2025-01-31 17:42 | NUR ---
folowing up with MRI. no answer.
[2025-02-01] VITALS (86 sets, daily range): BP systolic 71–140; BP diastolic 35–76; PULSE 71–110; RESP 14–38; TEMP 96.9–97.6; O2SAT 89–100
--- NOTE | 2025-02-01 05:24 | NUR ---
After cleaning patient, there are small cuts on her back thigh apart from the unstageable ulcer
[2025-02-01 05:25] LABS: IMMATURE GRANULOCYTE ABSOLUTE 0.06 K/uL (0-1); NUCLEATED RED BLOOD CELLS 1.1 % (0.0-0.19); PLATELET COUNT (AUTO) 149 K/uL (130-400); RED BLOOD CELL COUNT(AUTO) 2.47 MIL/uL (4.00-5.50); RED CELL DISTRIBUTION WIDTH 19.2 % (11.0-15.5); WHITE BLOOD COUNT (AUTO) 8.5 K/uL (4.8-10.8)
[2025-02-01 05:43] LABS: ASPARTATE AMINOTRANSFERASE 28.0 U/L (10-37); CREATININE 2.9 mg/dL (0.5-1.0); GLOMERULAR FILTR. RATE CALC 17.0 mL/min (>90); GLUCOSE,RANDOM 295.0 mg/dL (70-105); PHOSPHORUS 1.7 mg/dL (2.5-4.9); SODIUM SERUM 142.0 mmol/L (136-145); TOTAL PROTEIN, SERUM 4.4 g/dL (6.0-8.3); UREA NITROGEN, BLOOD 33.0 mg/dL (7-18)
[2025-02-01 08:59] LABS: INR 1.24 (0.85-1.15)
--- NOTE | 2025-02-01 11:47 | PN ---
NEPHROLOGY PROGRESS NOTE Date/Time Patient Seen: Feb 01, 2025 SUBJECTIVE: This is a 70-year-old female with past medical history of diabetes mellitus type 2, hypertension, anemia, history of CVA, history of right below-knee amputation, chronic kidney disease with prior history of dialysis She presented to the hospital secondary to hematemesis. Patient is currently intubated and sedated. Most information was obtained from chart review. bedside nurse, and family due to patient's condition The patient was noted to have black colored vomit at home which started yesterday. She has a history of peptic ulcer disease. She was noted to have elevated BUN/creatinine. Continues on heparin drip Continues on antibiotics We are consulted for renal failure Renal function remains elevated Electrolytes are stable Iron panel was noted,S/p PRBC Imaging studies were noted Neurology was consulted due to deteriorating neurological status CT head showed Ill-defined hypodensity with loss of rodriguez-white matter interface in the right frontal and high parietal lobes concerning for possible infarct. Pending MRI She was seen in the ICU, intubated Family at the bedside Condition is critical and guarded REVIEW OF SYSTEMS: Difficult to obtain given status of the patient who remains intubated mechani jeremy ventilated Vital Signs (last 8hr) Date Time Temp Pulse Resp B/P (MAP) Pulse Ox O2 Delivery O2 Flow Rate FiO2 02/01/25 09:15 30 02/01/25 09:14 89 30 02/01/25 08:45 86 23 105/58 (74) 100 30 02/01/25 08:30 81 22 101/51 (68) 100 30 02/01/25 08:15 82 24 99/53 (68) 100 30 02/01/25 08:00 97.2 02/01/25 08:00 87 23 105/55 (72) 100 30 02/01/25 08:00 100 CPAP+ 30 30 Ventilator+ 02/01/25 07:45 92 23 105/57 (73) 99 30 02/01/25 07:30 88 20 98/54 (69) 100 30 02/01/25 07:15 97.3 89 23 101/51 (68) 100 30 02/01/25 07:00 90 24 106/64 (78) 99 30 02/01/25 06:21 30 02/01/25 06:14 90 30 02/01/25 06:00 93 21 123/71 (88) 100 02/01/25 05:45 93 19 140/73 (95) 100 02/01/25 05:30 92 15 123/75 (91) 100 02/01/25 05:15 94 15 121/73 (89) 100 02/01/25 05:00 97 19 124/63 (83) 100 02/01/25 04:45 94 16 140/52 (81) 100 02/01/25 04:30 94 23 114/59 (77) 100 02/01/25 04:16 83 30 02/01/25 04:15 90 22 111/70 (84) 100 02/01/25 04:00 30 02/01/25 04:00 92 24 118/52 (74) 100 02/01/25 04:00 100 Ventilator+ 30 30 02/01/25 04:00 97.0 PHYSICAL EXAM: General: acutely ill, sedated, intubated, and mechanically ventilated HEENT: head is atraumatic, pupils equal and reactive, ET tube in place Neck: supple, no masses, no lymphadenopathy, no thyromegaly, no JVD Lungs: decreased breath sounds bilaterally, symmetrical chest movement Cardio: regular rate, S1 and S2 normal, no rub or gallop Abdomen: soft, non tender, no distension, no organomegaly Extremities: trace edema bilateral lower extremities, no cyanosis or clubbing Skin: no rashes or suspicious lesions Neuro: sedated Current Medications Medications (Trade) Dose Ordered Sig/Arik Route Start Time Stop Time Status Last Admin Dose Admin Albumin Human 50 ml @ 0 mls/hr Q8H6 IV 01/24/25 14:00 01/24/25 22:00 Artificial Tears (Artificial Tears) 1 DROP OR AD Q8H OU 01/23/25 19:30 02/22/25 19:29 01/24/25 12:13 1 DROP Cefepime HCl (MAXipime 2 gm vial) 2 gm Q24H IVPB 01/23/25 12:00 02/02/25 11:59 01/24/25 12:13 2 GM Ceftriaxone Sodium (ROCEphine 1G INJ) 1 gm Q24H IVPB 01/22/25 12:00 01/22/25 16:25 DC 01/22/25 14:18 1 GM Chlorhexidine Gluconate (Peridex) 15 ml TID MM 01/23/25 21:00 02/06/25 20:59 01/24/25 09:15 15 ML Fentanyl Citrate 100 ml @ 2.5 mls/hr PROTOCOL IV 01/22/25 12:00 01/22/25 11:55 DC Fentanyl Citrate 100 ml @ 2.5 mls/hr PROTOCOL IV 01/22/25 12:00 01/29/25 11:59 01/24/25 06:59 2.5 MLS/HR Insulin Human Regular (humuLIN R 100 UNIT/ML 3ML) INSULIN SLIDING SCAL... ACHS SQ 01/22/25 21:00 02/21/25 20:59 01/23/25 12:20 2 UNIT Levetiracetam (kepPRA 500 MG TABLET) 500 mg BID PO 01/22/25 21:00 01/22/25 22:13 DC Levetiracetam 500 mg/Sodium Chloride 100 ml @ 400 mls/hr Q12H9 IV 01/22/25 22:00 02/21/25 21:59 01/24/25 09:17 400 MLS/HR Levothyroxine Sodium (SYNTHroid VIAL 100MCG) 100 mcg SYN IV 01/23/25 06:30 02/22/25 06:29 01/24/25 05:34 100 MCG Linezolid 300 ml @ 150 mls/hr Q12H IV 01/24/25 08:00 02/03/25 07:59 01/24/25 09:15 150 MLS/HR Metronidazole/ Sodium Chloride 100 ml @ 100 mls/hr Q8H6 IVPB 01/22/25 22:00 02/01/25 21:59 01/24/25 05:34 100 MLS/HR Midazolam HCl 50 ml @ 0 mls/hr PROTOCOL IV 01/22/25 12:00 01/29/25 11:59 01/22/25 20:51 1 MLS/HR Norepinephrine 250 ml @ 0 mls/hr PROTOCOL IV 01/22/25 10:00 01/23/25 09:52 DC 01/22/25 14:24 60 MLS/HR Norepinephrine Bitartrate (Norepineph 16 Mg/250ml NS Premix) per protocol PROTOCOL IV 01/23/25 10:00 02/22/25 09:59 01/23/25 23:50 16 MG Octreotide Acetate 1250 mcg/ Sodium Chloride 250 ml @ 0 mls/hr PROTOCOL IV 01/22/25 12:30 01/22/25 12:17 DC Octreotide Acetate 1250 mcg/ Sodium Chloride 250 ml @ 0 mls/hr PROTOCOL IV 01/22/25 12:30 01/24/25 09:23 DC 01/22/25 12:41 5 MLS/HR Pantoprazole Sodium (PROTonix 40MG INJ) 40 mg BID IVP 01/24/25 21:00 02/23/25 20:59 Pantoprazole Sodium 80 mg/ Sodium Chloride 100 ml @ 10 mls/hr Q10H IV 01/22/25 09:00 01/24/25 09:23 DC 01/24/25 09:17 10 MLS/HR Pharmacy Profile Note (Pharmacy Communication) 1 each ONCE MISC 01/22/25 12:00 01/22/25 11:53 DC Pharmacy Profile Note (Pharmacy Communication) 1 each ONCE MISC 01/22/25 12:00 01/22/25 11:53 DC Pharmacy Profile Note (Pharmacy Communication) 1 each ONCE MISC 01/23/25 13:00 01/23/25 13:09 DC Pharmacy Profile Note (Pharmacy Communication) 1 each ONCE MISC 01/24/25 08:00 01/24/25 07:51 DC Sodium Chloride 1,000 ml @ 150 mls/hr Q6H40M IV 01/22/25 12:00 01/23/25 10:56 DC 01/23/25 02:45 150 MLS/HR Sucralfate (Carafate) 1 gm BID PO 01/23/25 21:00 01/23/25 11:41 DC Sucralfate (Carafate) 1 gm TID PO 01/23/25 14:00 02/22/25 20:59 01/24/25 09:15 1 GM Thiamine HCl 100 mg/Sodium Chloride 50 ml @ 100 mls/hr Q24H IV 01/23/25 14:00 01/25/25 14:29 01/23/25 14:05 100 MLS/HR Vancomycin HCl (Vancomycin 750mg) 750 mg Q24H IVPB 01/23/25 17:00 01/23/25 10:56 DC Vancomycin HCl (Vancomycin Protocol) 1 each AD IV 01/22/25 15:00 01/23/25 10:56 DC LABORATORY: [ ] Hematology Labs: Test 02/01/25 04:50 Range/Units White Blood Count 8.5 4.8-10.8 K/uL Red Blood Count 2.47 L 4.00-5.50 MIL/uL Hemoglobin 7.3 L 12.0-16.0 g/dL Hematocrit 22.4 L 36-48 % Mean Corpuscular Volume 90.7 79-99 fL Mean Corpuscular Hemoglobin 29.6 27.0-33.0 pg Mean Corpuscular Hemoglobin Concent 32.6 32.0-36.0 g/dL Red Cell Distribution Width 19.2 H 11.0-15.5 % Platelet Count 149 130-400 K/uL Mean Platelet Volume 11.6 H 7.5-10.5 fL Immature Granulocyte % (Auto) 0.7 0-1 % Neutrophils (%) (Auto) 80.0 H 40.0-77.0 % Lymphocytes (%) (Auto) 13.0 L 21.0-51.0 % Monocytes (%) (Auto) 3.3 3.0-13.0 % Eosinophils (%) (Auto) 2.5 0.0-8.0 % Basophils (%) (Auto) 0.5 0.0-5.0 % Neutrophils # (Auto) 6.8 1.8-7.7 K/uL Lymphocytes # (Auto) 1.1 1.0-4.8 K/uL Monocytes # (Auto) 0.3 0.1-1.0 K/uL Eosinophils # (Auto) 0.21 0.00-0.70 K/uL Basophils # (Auto) 0.04 0.00-0.20 K/uL Absolute Immature Granulocyte (auto 0.06 0-1 K/uL Nucleated Red Blood Cells 1.1 H 0.0-0.19 % Chemistry Labs: Test 02/01/25 06:27 02/01/25 04:50 01/31/25 12:38 Range/Units Whole Blood Glucose 263 H 70-110 MG/DL Sodium Level 142 136-145 mmol/L Potassium Level 2.8 *L 3.5-5.1 mmol/L Chloride Level 109 101-111 mmol/L Carbon Dioxide Level 18 L 21-32 mmol/L Blood Urea Nitrogen 33 H 7-18 mg/dL Creatinine 2.9 H 0.5-1.0 mg/dL Glomerular Filtration Rate Calc 17 >90 mL/min Random Glucose 295 H 70-105 mg/dL Total Calcium 8.4 L 8.5-10.1 mg/dL Phosphorus Level 1.7 L 2.5-4.9 mg/dL Magnesium Level 2.00 1.80-2.40 mg/dL Total Bilirubin 0.4 0.2-1.0 mg/dL Aspartate Amino Transf (AST/SGOT) 28 10-37 U/L Alanine Aminotransferase (ALT/SGPT) 9 L 12-78 U/L Alkaline Phosphatase 484 H 50-136 U/L Total Protein 4.4 L 6.0-8.3 g/dL Albumin 0.7 L 3.5-5.0 g/dL Ammonia 48 H 11-32 umol/L Thyroid Stimulating Hormone (TSH) 3.07 # 0.36-3.74 uIU/mL Coagulation Labs: Test 02/01/25 08:10 Range/Units Prothrombin Time 12.9 H 9.6-11.6 SEC Prothromb Time International Ratio 1.24 H 0.85-1.15 Activated Partial Thromboplast Time 54.7 H 26.3-35.5 SEC DIAGNOSTICS / RADIOLOGY: [address] [address] IMAGING REPORT Signed PATIENT: JUSTIN KLINE MR#: [id number] : 1955 SEX: F AGE: 70 LOCATION: [facility] ORDER 1 STATUS: ADM IN REPORT#: [id number] SERVICE 1 REASON: UNRESPONSIVE ORDERING PHYSICIAN: RERE BLAIR PROCEDURE: HEAD WO - CT HEAD/BRAIN W/O CONTRAST EXAM: CT Head Without IV contrast. CLINICAL HISTORY: UNRESPONSIVE TECHNIQUE: Axial computed tomography images of the head/brain without intravenous contrast. COMPARISON: None provided. FINDINGS: BRAIN: There is diffuse cerebral atrophy, evidenced by prominence of the cortical sulci and ventricular system, compatible with age-related changes. There is evidence of chronic small vessel ischemic change characterized by bilateral periventricular and deep white matter hypodensities. Ill-defined hypodensity with loss of rodriguez-white matter interface in the right frontal and high parietal lobes concerning for a possible infarct. No evidence of acute hemorrhage. No mass lesion. No midline shift or extra-axial collections. VENTRICLES: No hydrocephalus. ORBITS: The orbits are unremarkable. SINUSES AND MASTOIDS: Mucosal thickening in bilateral sphenoidal sinuses. The rest of the Paranasal sinuses and mastoid air cells are clear. BONES: No fracture. SOFT TISSUES: Unremarkable. IMPRESSION: 1. Ill-defined hypodensity with loss of rodriguez-white matter interface in the right frontal and high parietal lobes concerning for possible infarct. Consider MRI 2. No acute intracranial hemorrhage. /[place] DICTATED BY: SELIN BURNS MD DATE: 01/31/251730 ELECTRONICALLY SIGNED BY: SELIN BURNS MD DATE: 01/31/251730 PATIENT: JUSTIN KLINE MR#: [id number] : 1955 SEX: F AGE: 70 LOCATION: [facility] ORDER 3 STATUS: ADM IN REPORT#: [id number] SERVICE 1 REASON: pp ORDERING PHYSICIAN: RERE BLAIR PROCEDURE: CXR1VW - CHEST 1VW EXAM: CR Chest, 1 View. CLINICAL HISTORY: pp COMPARISON: 01/30 20:49 EDT CR - CHEST 1VW FINDINGS: Essentially stable since prior exam. ETT tip 4 cm above arminda. Left PICC tip in SVC. stable left perihilar and left basilar airspace disease and small left pleural effusion. Right lung remains relatively clear. Negative for pneumothorax. Heart size, pulmonary vascularity and mediastinum within normal limits. PLEURAL SPACES: No evidence of pleural effusion or pneumothorax. MEDIASTINUM: Cardiac size and mediastinal contours within normal limits. BONES: No aggressive appearing osseous lesion seen. IMPRESSION: Stable chest. Support lines and tubes appear appropriate position and stable. Stable left perihilar and left basilar airspace disease and small left pleural effusion. Right lung remains clear. /[place] DICTATED BY: RADHA BECERRA Jr., MD DATE: 01/31/251312 ELECTRONICALLY SIGNED BY: RADHA BECERRA Jr., MD DATE: 01/31/251312 PATIENT: JUSTIN KLINE MR#: [id number] : 1955 SEX: F AGE: 70 LOCATION: [facility] ORDER 7 STATUS: ADM IN REPORT#: [id number] SERVICE 5 REASON: congestion,intubated ORDERING PHYSICIAN: RERE BLAIR PROCEDURE: CXR1VW - CHEST 1VW EXAM: CR Chest, 2 View. CLINICAL HISTORY: congestion,intubated COMPARISON: Yesterday FINDINGS: LUNGS: Endotracheal tube adequately positioned above level arminda. Left retrocardiac opacity could be due to pleural effusion/atelectasis. Pulmonary vascular congestion. PLEURAL SPACES: Small right pleural effusion. MEDIASTINUM: Cardiomegaly. BONES: No acute osseous abnormality. IMPRESSION: 1. Endotracheal tube adequately positioned above the arminda. 2. Left retrocardiac opacity, possibly due to pleural effusion or atelectasis. 3. Pulmonary vascular congestion. 4. Small right pleural effusion. 5. Cardiomegaly. /[place] DICTATED BY: KIMBERLEE FABIAN MD DATE: 01/30/251050 ELECTRONICALLY SIGNED BY: KIMBERLEE FABIAN MD DATE: 01/30/251050 PATIENT: JUSTIN KLINE MR#: [id number] : 1955 SEX: F AGE: 70 LOCATION: [facility] ORDER 0 STATUS: ADM IN REPORT#: [id number] SERVICE 9 REASON: intubated ORDERING PHYSICIAN: MISTI DAY APRN PROCEDURE: CXR1VW - CHEST 1VW CHEST 1VW REASON: intubated COMPARISON: Prior chest radiograph from 01/28/2025 is available. FINDINGS: Single view of the chest was obtained. They demonstrate mild cardiomegaly. There is uncoiling atherosclerotic change of thoracic aorta. The lung hassan demonstrate there is an infiltrate in the left lower lung with left-sided pleural effusion which appears to be worsening. The remaining lung hassan are clear. Endotracheal tube is unchanged in satisfactory position. There is mild elevation of the right hemidiaphragm.. Mediastinum and bony thorax appear unremarkable. The bony thorax demonstrate mild osteopenia.. IMPRESSION: 1. There is infiltrate annual in the left lower lung with left-sided pleural effusion 2. Mild cardiomegaly 3. Endotracheal tube in satisfactory position.. DICTATED BY: RENA MADDOX MD DATE: 01/29/25 1011 ELECTRONICALLY SIGNED BY: RENA MADDOX MD DATE: 01/29/25 1015 PATIENT: JUSTIN KLINE MR#: [id number] : 1955 SEX: F AGE: 70 LOCATION: [facility] ORDER 0834 STATUS: ADM IN REPORT#: [id number] SERVICE 0833 REASON: pp ORDERING PHYSICIAN: RERE BLAIR PROCEDURE: CXR1VW - CHEST 1VW CHEST 1VW REASON: pp COMPARISON: Prior study from 01/26/2025 is available. FINDINGS: Single view of the chest was obtained. Lungs are clear. There is groundglass appearance suggesting of left-sided pleural effusion. Heart size is normal. There is uncoiling atherosclerotic change of thoracic aorta. There is no pulmonary vascular congestion. The endotracheal tube is in satisfactory position. Mediastinum and bony thorax appear unremarkable. IMPRESSION: 1. No evidence of airspace consolidation or pulmonary venous congestion 2. There is suggestion of a left-sided jbgge-ju-uclaoick pleural effusion 3. Endotracheal tube in satisfactory position.. DICTATED BY: RENA MADDOX MD DATE: 01/28/25 1107 ELECTRONICALLY SIGNED BY: RENA MADDOX MD DATE: 01/28/25 1112 PATIENT: JUSTIN KLINE MR#: [id number] : 1955 SEX: F AGE: 70 LOCATION: [facility] ORDER 2300 STATUS: ADM IN REPORT#: [id number] SERVICE 0600 REASON: vented pt ORDERING PHYSICIAN: KARL RODRIGUEZ PROCEDURE: CXR1VW - CHEST 1VW EXAM: XR Chest, 3 Views. CLINICAL HISTORY: 70-year-old female ventilated patient. COMPARISON: Prior exam from 01/25/2025 at 3:39 PM. FINDINGS: LUNGS: Minimal pulmonary congestion, new compared to the prior exam. PLEURAL SPACES: No pleural effusion or pneumothorax. HEART: Moderate cardiomegaly, somewhat more pronounced compared to the prior exam. BONES: No acute osseous abnormality. VASCULATURE: Atherosclerotic aorta. LINES AND TUBES: Endotracheal tube tip at the arminda. Recommendation for withdrawal of 1 to 2 cm. IMPRESSION: 1. Endotracheal tube tip at the arminda. Recommend withdrawal of 1 to 2 cm. 2. Moderate cardiomegaly, somewhat more pronounced compared to the prior exam. 3. Atherosclerotic aorta. 4. Minimal pulmonary congestion, new compared to the prior XR chest from 01/25/2025 at 3:39 PM. /[place] DICTATED BY: TOM SANCHEZ MD DATE: 01/26/252120 ELECTRONICALLY SIGNED BY: TOM SANCHEZ MD DATE: 01/26/252120 PATIENT: JUSTIN KLINE MR#: [id number] : 1955 SEX: F AGE: 70 LOCATION: [facility] ORDER 38 STATUS: ADM IN REPORT#: [id number] SERVICE 153 REASON: picc placement ORDERING PHYSICIAN: RERE BLAIR PROCEDURE: CXR1VW - CHEST 1VW CHEST 1VW REASON: picc placement COMPARISON: Prior chest radiograph from 01/25/2025 at 1534 is available. FINDINGS: Single view of the chest was obtained. Lungs are clear. Heart size is normal. There is uncoiling atherosclerotic change of thoracic ureter. There is no pulmonary vascular congestion. Mediastinum and bony thorax appear unremarkable. There is a right-sided PIC catheter tip in superior vena cava at the cavoatrial junction. Endotracheal tube is in satisfactory position. IMPRESSION: 1. Support lines are in satisfactory position.. 2. No evidence of airspace consolidation or pulmonary venous congestion. DICTATED BY: RENA MADDOX MD DATE: 01/25/25 1558 ELECTRONICALLY SIGNED BY: RENA MADDOX MD DATE: 01/25/25 1604 PATIENT: JUSTIN KLINE MR#: [id number] : 1955 SEX: F AGE: 70 LOCATION: [facility] ORDER 1529 STATUS: ADM IN REPORT#: [id number] SERVICE 152 REASON: PICC placement ORDERING PHYSICIAN: RERE BLAIR PROCEDURE: CXR1VW - CHEST 1VW EXAM: XR Chest, 1 View. CLINICAL HISTORY: 70 year old female PICC placement right upper extremity. COMPARISON: None provided. FINDINGS: LUNGS: The lungs are clear. No consolidation. PLEURAL SPACES: No pleural effusion or pneumothorax. HEART: The heart size is enlarged. BONES: No acute osseous abnormality. LINES AND TUBES: PICC line with tip in the SVC. Endotracheal tube with tip in the arminda. VASCULATURE: Atherosclerotic aorta, similar to prior. IMPRESSION: 1. No acute cardiopulmonary pathology. 2. PICC line with tip in the SVC and endotracheal tube with tip in the arminda. /[place] DICTATED BY: TOM SANCHEZ MD DATE: 01/25/252108 ELECTRONICALLY SIGNED BY: TOM SANCHEZ MD DATE: 01/25/252108 PATIENT: JUSTIN KLINE MR#: [id number] : 1955 SEX: F AGE: 70 LOCATION: [facility] ORDER 2300 STATUS: ADM IN REPORT#: [id number] SERVICE 0600 REASON: vented pt ORDERING PHYSICIAN: KARL RODRIGUEZ PROCEDURE: CXR1VW - CHEST 1VW EXAM: XR Chest, 2 Views. CLINICAL HISTORY: 70-year-old female, ventilated. COMPARISON: 01/24/2025. FINDINGS: LUNGS: Atelectasis lung bases. PLEURAL SPACES: Left pleural effusion, similar to prior XR chest from 01/24/2025 at 4:48 am. HEART: The heart size is normal. BONES: No acute osseous abnormality. IMPRESSION: 1. Left pleural effusion, similar to prior XR chest from 01/24/2025 at 4:48 am. 2. Atelectasis lung bases. /[facility] DICTATED BY: TOM SANCHEZ MD DATE: 01/25/252038 ELECTRONICALLY SIGNED BY: TOM SANCHEZ MD DATE: 01/25/252038 PATIENT: JUSTIN KLINE MR#: [id number] : 1955 SEX: F AGE: 70 LOCATION: [facility] ORDER 1510 STATUS: ADM IN REPORT#: [id number] SERVICE 1508 REASON: HGB drop, assess for possible GI bleed ORDERING PHYSICIAN: KIRSTEN KRUSE MD PROCEDURE: GIBLEED - NM GI BLOOD LOSS IMAG Examination NM radiolabeled red blood cell study History Gastrointestinal bleeding Technique After IV administration of Tc-99m labeled red autologous blood cells, anterior projection images of the abdomen and pelvis were obtained dynamically for one hour. Findings Following administration of radiolabeled red blood cells, there is normal activity seen in cardiovascular and genitourinary structures, the liver and spleen. There is no evidence for extravasation of radiolabeled red blood cells during the examination. IMPRESSION: No evidence of gastrointestinal hemorrhage during the course of examination acquisition. /[place] DICTATED BY: RADHA BECERRA Jr., MD DATE: 01/25/251457 ELECTRONICALLY SIGNED BY: RADHA BECERRA Jr., MD DATE: 01/25/251457 PATIENT: JUSTIN KLINE MR#: [id number] : 1955 SEX: F AGE: 70 LOCATION: [facility] ORDER 1143 STATUS: ADM IN REPORT#: [id number] SERVICE 1131 REASON: new onset swelling in her arms ORDERING PHYSICIAN: KIRSTEN KRUSE MD PROCEDURE: VENOUS ALCIDES - US VENOUS DOPPLER BILATERAL EXAMINATION: SPECTRAL DOPPLER ULTRASOUND EXAMINATION OF THE BILATERAL UPPER EXTREMITY VEINS. CLINICAL HISTORY: Swelling. COMPARISON: None. TECHNIQUE: Grayscale, color, and spectral Doppler images of the bilateral upper extremity veins are submitted. FINDINGS: Right: The cephalic and brachial veins are patent. These veins show normal flow with physiological changes of phasicity and augmentation. There is thrombosis in the subclavian, axillary, and basilic veins. Left: The internal jugular, subclavian, axillary, basilic, brachial veins are patent. These veins show normal flow with physiological changes of phasicity and augmentation. IMPRESSION: Deep vein thrombosis in the right subclavian and axillary veins. Right basilic vein thrombosis. The small craft operator informed the patient's nurse at the time of the exam. /[place] DICTATED BY: GOVIND HAYES MD DATE: 01/25/25722 ELECTRONICALLY SIGNED BY: GOVIND HAYES MD DATE: 01/25/25722 PATIENT: JUSTIN KLINE MR#: [id number] : 1955 SEX: F AGE: 70 LOCATION: [facility] ORDER 2300 STATUS: ADM IN REPORT#: [id number] SERVICE 0600 REASON: vented pt ORDERING PHYSICIAN: KARL RODRIGUEZ PROCEDURE: CXR1VW - CHEST 1VW EXAM: CR Chest, 1 View. CLINICAL HISTORY: vented pt COMPARISON: None provided. FINDINGS: LUNGS: Endotracheal tube midline above arminda Slight worsening left lower lobe infiltrate PLEURAL SPACES: No evidence of pleural effusion or pneumothorax. MEDIASTINUM: Cardiac size and mediastinal contours within normal limits. BONES: No acute osseous abnormality. IMPRESSION: 1. Endotracheal tube midline above arminda 2. Slight worsening left lower lobe infiltrate /[place] DICTATED BY: ANA ALSTON MD DATE: 01/24/252109 ELECTRONICALLY SIGNED BY: ANA ALSTON MD DATE: 01/24/252109 PATIENT: JUSTIN KLINE MR#: [id number] : 1955 SEX: F AGE: 70 LOCATION: [facility] ORDER 1301 STATUS: ADM IN REPORT#: [id number] SERVICE 1258 REASON: Decreased renal function ORDERING PHYSICIAN: SAUMYA ANTONIO PROCEDURE: RENAL - US RENAL SONOGRAM EXAMINATION: ULTRASOUND OF THE RETROPERITONEUM. CLINICAL HISTORY: Decreased renal function. COMPARISON: CT abdomen and pelvis without contrast dated 01/22/2025. TECHNIQUE: Real-time grayscale ultrasound images of the kidneys. FINDINGS: The right kidney is smaller in caliber, and the left kidney is normal in caliber, the right kidney measures 7.4 x 3.9 x 3.1 cm and the left kidney measures 8.2 x 3.0 x 3.3 cm in its craniocaudal, AP, and transverse dimensions respectively. There is normal renal cortical thickness and increased cortical echogenicity. There is no renal calculus or hydronephrosis. The urinary bladder is empty. There is Kamara???s bulb. IMPRESSION: Relatively small right kidney. Increased echogenicity of both the kidneys may reflect renal parenchymal disease. Recommend clinical correlation and with laboratory parameters. Kamara???s bulb is in situ. /[place] DICTATED BY: RADHA BECERRA Jr., MD DATE: 01/23/252300 ELECTRONICALLY SIGNED BY: RADHA BECERRA Jr., MD DATE: 01/23/252300 PATIENT: JUSTIN KLINE MR#: [id number] : 1955 SEX: F AGE: 70 LOCATION: [facility] ORDER STATUS: ADM IN REPORT#: [id number] SERVICE 0743 REASON: intubated,congestion ORDERING PHYSICIAN: KARL RODRIGUEZ PROCEDURE: CXR1VW - CHEST 1VW EXAM: CR Chest, 1 View. CLINICAL HISTORY: intubated,congestion COMPARISON: 01/22 16:55 EDT CR - CHEST 1VW FINDINGS: ET tube 3.7 cm above the arminda. LUNGS: The lungs show no infiltrate or other acute finding. PLEURAL SPACES: No pleural effusion or pneumothorax. MEDIASTINUM: Cardiac size and mediastinal contours within normal limits. BONES: No acute osseous abnormality. IMPRESSION: No acute cardiopulmonary pathology is evident. ET tube 3.7 cm above the arminda. /[facility] DICTATED BY: RADHA BECERRA Jr., MD DATE: 01/23/251009 ELECTRONICALLY SIGNED BY: RADHA BECERRA Jr., MD DATE: 01/23/25 101 PATIENT: JUSTIN KLINE MR#: [id number] : 1955 SEX: F AGE: 70 LOCATION: [facility] ORDER 23 STATUS: ADM IN REPORT#: [id number] SERVICE 22 REASON: NG tube location ORDERING PHYSICIAN: KENA HAWLEY MD PROCEDURE: ABD 1VW - ABD 1VW ADDENDUM REPORT ADDENDUM: Results were shared by telephone at 10:10 pm on 01-22-25 and acknowledged by KENA Rivas. /[facility] EXAM: CR Abdomen, 1 View. CLINICAL HISTORY: NG tube location COMPARISON: None provided. FINDINGS: BOWEL: The bowel gas pattern is within normal limits. PERITONEUM/SOFT TISSUES: No free air evident. No pathologic appearing calcification. BONES: No acute osseous abnormality. MISCELLANEOUS: No nasogastric tube identified. Gastrostomy tube left upper IMPRESSION: 1. No nasogastric tube identified. 2. Gastrostomy tube left upper quadrant /[facility] DICTATED BY: ANA ALSTON MD DATE: 01/22/252210 ELECTRONICALLY SIGNED BY: DATE: EXAM: CR Abdomen, 1 View. CLINICAL HISTORY: NG tube location COMPARISON: None provided. FINDINGS: BOWEL: The bowel gas pattern is within normal limits. PERITONEUM/SOFT TISSUES: No free air evident. No pathologic appearing calcification. BONES: No acute osseous abnormality. MISCELLANEOUS: No nasogastric tube identified. Gastrostomy tube left upper IMPRESSION: 1. No nasogastric tube identified. 2. Gastrostomy tube left upper quadrant /[facility] DICTATED BY: ANA ALSTON MD DATE: 01/22/252200 ELECTRONICALLY SIGNED BY: ANA ALSTON MD DATE: 01/22/252200 PATIENT: JUSTIN KLINE MR#: [id number] : 1955 SEX: F AGE: 70 LOCATION: [facility] ORDER 50 STATUS: ADM IN REPORT#: [id number] SERVICE 49 REASON: post intubation CXR ORDERING PHYSICIAN: KARL RODRIGUEZ PROCEDURE: CXR1VW - CHEST 1VW ADDENDUM REPORT ADDENDUM: Results were shared by telephone at 6:33 pm on 01-22-25 and acknowledged by patient's nurse JESSICA Mas. /[place] EXAM: CR Chest, 2 View. CLINICAL HISTORY: post intubation CXR COMPARISON: None provided. FINDINGS: LUNGS: Endotracheal tube appears midline above arminda PLEURAL SPACES: No pleural effusion or pneumothorax. MEDIASTINUM: The cardiomediastinal silhouette is within normal limits. BONES: No acute osseous abnormality. MISCELLANEOUS: Question nasogastric tube in the thoracic inlet. IMPRESSION: 1. Endotracheal tube appears midline above arminda 2. Question nasogastric tube in the thoracic inlet. /[place] DICTATED BY: ANA ALSTON MD DATE: 01/22/251835 ELECTRONICALLY SIGNED BY: DATE: EXAM: CR Chest, 2 View. CLINICAL HISTORY: post intubation CXR COMPARISON: None provided. FINDINGS: LUNGS: Endotracheal tube appears midline above arminda PLEURAL SPACES: No pleural effusion or pneumothorax. MEDIASTINUM: The cardiomediastinal silhouette is within normal limits. BONES: No acute osseous abnormality. MISCELLANEOUS: Question nasogastric tube in the thoracic inlet. IMPRESSION: 1. Endotracheal tube appears midline above arminda 2. Question nasogastric tube in the thoracic inlet. /[place] DICTATED BY: ANA ALSTON MD DATE: 01/22/251821 ELECTRONICALLY SIGNED BY: ANA ALSTON MD DATE: 01/22/251821 PATIENT: JUSTIN KLINE MR#: [id number] : 1955 SEX: F AGE: 70 LOCATION: [facility] ORDER 11 STATUS: ADM IN REPORT#: [id number] SERVICE [id number] REASON: transaminitis rule out CBD dilation/obstruction cholangitis ORDERING PHYSICIAN: KARL RODRIGUEZ PROCEDURE: ABDRUQLTD - US ABDOMINAL RUQ\LTD EXAMINATION: ULTRASOUND OF THE ABDOMEN (LIMITED) WITH COLOR DOPPLER. CLINICAL HISTORY: Transaminitis. To rule out CBD obstruction. COMPARISON: CT abdomen and pelvis without contrast from the same day. TECHNIQUE: Real-time grayscale ultrasound images of the abdomen. In addition, color Doppler is medically necessary to perform in order to evaluate vascularity and blood flow. FINDINGS: Liver: Normal in caliber, the right hepatic lobe measures 15.4 cm in the craniocaudal dimension. There is increased echogenicity of the hepatic parenchyma. There is no focal hepatic abnormality or intrahepatic biliary ductal dilatation. There is normal spectral Doppler of the main portal vein. Gallbladder: Within normal limits with normal wall thickness (0.22 cm). No hyperemia or pericholecystic free fluid. There are few calculi, the largest measure 1.5 cm. Common bile duct is normal in caliber, measuring 0.28 cm. Pancreas: Obscured by overlying bowel gas. The right kidney is normal in caliber, the right kidney measures 8.2 x 3.3 x 2.9 cm in craniocaudal, AP, and transverse dimensions respectively. There is normal renal cortical thickness, and cortical echogenicity. There is no renal calculus or hydronephrosis. IMPRESSION: Hepatic steatosis. Cholelithiasis. No cholecystitis. /[place] DICTATED BY: GOVIND HAYES MD DATE: 01/23/25856 ELECTRONICALLY SIGNED BY: GOVIND HAYES MD DATE: 01/23/25856 PATIENT: JUSTIN KLINE MR#: [id number] : 1955 SEX: F AGE: 70 LOCATION: [facility] ORDER 122 STATUS: ADM IN REPORT#: [id number] SERVICE 122 REASON: PERICARDIAL EFFUSION. Please also assess EF ORDERING PHYSICIAN: KENA HAWLEY MD PROCEDURE: ECHO CMP - ECHO 2-D COMPLETE APPROVED REPORT EXAM: Two-dimensional and M-mode echocardiogram with Doppler and color Doppler. INDICATION ICD: Assess pericardial effusion and ejection fraction 2D Dimensions RVDd 3.0 cm LVEF(%) 49.3 (>50%) LVED Vol(simp.) 20.0 mL IVSd 1.9 (0.7-1.1cm) FS(%) 23 % LVES Vol(simp.) 9.0 mL LVDd 2.4 (3.8-5.6cm) LA (2D) 2.6 (1.6-4.0cm) LVEF(%, simp.) 55 % PWd 2.0 (0.7-1.1cm) Ao Root(2D) 2.7 (2.0-3.7cm) LA ESV INDEX (BP) 22.00 mL/m2 IVSs 2.0 cm LVOT diam 2.0 (1.8-2.4cm) LVDs 1.8 (2.5-4.0cm) IVC diam 1.2 cm PWs 1.7 cm Deformation Strain Apical 4 -7.1 % Apical 2 -6.9 % Apical 3 -10.1 % Global Strain -8.0 % M-Mode Dimensions EPSS 0.8 cm LA (MM) 2.3 (1.6-4.0cm) Ao Root(MM) 2.9 (2.0-3.7cm) Aortic Valve AoV Vmax 2.1 m/s Ao Peak GR 17.0 mmHg LVOT Vmax 2.1 m/s AoV VTI 0.2 m Ao Mean GR 8.4 mmHg LVOT VTI 0.22 m YASMEEN (VMAX) 3.02 cm2 YASMEEN (VTI) 3.6 cm2 Mitral Valve MV E Vmax 51.6 cm/s DECEL Time 82 ms MV A Vmax 69.0 cm/s P 1/2 T 19 ms E/A ratio 0.7 MVA (PHT) 11.9 cm2 TDI E/E' Medial 6.8 E/E' Lateral 9.3 Medial E' Peak V 7.57 cm/s Lateral E' Peak V 5.54 cm/s Pulmonary Valve PV Vmax 1.3 m/s PV VTI 0.14 m PV Mean GR 3.5 mmHg PV Peak GR 6.5 mmHg Tricuspid Valve TR Vmax 1.5 m/s RAP (EST) 3 mmHg RVSP 12.4 mmHg TR Peak GR 9.4 mmHg Left Ventricle Left ventricular cavity is small. GLS -8.0% Severe concentric left ventricular hypertrophy. LVEF is 50-55%. The left ventricular diastolic function is normal. Right Ventricle The right ventricle is normal size. The right ventricular systolic function is normal. Atria The left atrium size is normal. The right atrium is small in size. Aortic Valve The aortic valve is normal in structure. No aortic regurgitation is present. There is no aortic valvular stenosis. Mitral Valve The mitral valve is normal in structure. There is trace of mitral valve regurgitation noted. There is no mitral valve stenosis. Tricuspid Valve The tricuspid valve is normal in structure. There is trace of tricuspid valve regurgitation noted. Pulmonic Valve Pulmonic valve is not well visualized. There is no pulmonic valvular regurgitation. Great Vessels The aortic root is normal in size. The IVC is normal in size and collapses >50% with inspiration. Pericardium There is no pericardial effusion. Other Information Quality : Technically difficult study due to body habitus, pt intubated Rhythm : Tachycardia Conclusion LVEF is 50-55%. Severe concentric left ventricular hypertrophy. The left ventricular diastolic function is normal. There is no pericardial effusion. DICTATED BY: GIULIANA AWAN DO DATE: 01/22/251317 ELECTRONICALLY SIGNED BY: GIULIANA AWAN DO DATE: 01/23/25 0743 PATIENT: JUSTIN KLINE MR#: [id number] : 1955 SEX: F AGE: 70 [facility]ATION: [facility] ORDER 115 STATUS: ADM IN REPORT#: [id number] SERVICE 1151 REASON: S/P INTUBATION. ET tube position ORDERING PHYSICIAN: KENA HAWELY MD PROCEDURE: CXR1VW - CHEST 1VW EXAM: CR Chest, 2 View. CLINICAL HISTORY: S/P INTUBATION. ET tube position COMPARISON: Radiograph from January 22 at 8:53 AM FINDINGS: Endotracheal tube terminates 1.4 cm above the arminda. LUNGS: There is no mass, infiltrate, or acute pulmonary abnormality. PLEURAL SPACES: No pleural effusion or pneumothorax. MEDIASTINUM: Cardiac size and mediastinal contours within normal limits. Atherosclerosis of the thoracic aorta. BONES: No acute osseous abnormality. IMPRESSION: 1. Endotracheal tube positioned 1.4 cm above the arminda. 2. No acute cardiopulmonary abnormality. /[place] DICTATED BY: RADHA BECERRA Jr., MD DATE: 01/22/251309 ELECTRONICALLY SIGNED BY: RADHA BECERRA Jr., MD DATE: 01/22/251309 PATIENT: JUSTIN KLINE MR#: [id number] : 1955 SEX: F AGE: 70 LOCATION: [facility] ORDER 8 STATUS: REG ER REPORT#: [id number] SERVICE REASON: gi bleed ORDERING PHYSICIAN: JULISA PETERSON MD PROCEDURE: ABD PEL WO - CT ABDOMEN/PELVIS W/O CONTRAST CT ABDOMEN/PELVIS W/O CONTRAST REASON: gi bleed COMPARISON: None. FINDINGS: Lung bases are clear. There is a small left-sided pleural effusion. There is coronary calcifications suggesting coronary artery disease. There is suggestion of small pericardial effusion. There is a moderate size hiatal hernia. . There are no focal liver lesions. There are normal-appearing kidneys.. Spleen and pancreas appear unremarkable. The gallbladder appears normal as well. There is a feeding gastrostomy tube in place. Bowel loops appear unremarkable. This includes normal appearance of the appendix . There is fecal stasis in the rectal vault. Abutting the right lobe of the bowel in the right lower quadrant and abutting the right psoas muscle there is a a cystic structure measuring 5.9 x 3.9 cm. There is no evidence of free fluid or intraperitoneal air. There are no focal fluid collections. The retroperitoneum appear normal as do pelvic soft tissue structures. Aorta and iliac vessels demonstrate diffuse atherosclerotic changes. The anterior abdominal wall is intact. Osseous structures appear unremarkable. The uterus is surgically absent. IMPRESSION: 1. No acute process seen in CT of abdomen and pelvis without intravenous contrast 2. In the right adnexal region there is a cystic structure measuring 5.9 x 3.9 cm 3. Fecal stasis impaction seen in the rectal vault CT was performed with one or more following dose reduction techniques: automated exposure control, adjustment of the mA and kv according to patient's size, or use of a iterative reconstruction technique. DICTATED BY: RENA MADDOX MD DATE: 01/22/25 1044 ELECTRONICALLY SIGNED BY: RENA MADDOX MD DATE: 01/22/25 1051 PATIENT: JUSTIN KLINE MR#: [id number] : 1955 SEX: F AGE: 70 LOCATION: [facility] ORDER 8 STATUS: REG ER REPORT#: [id number] SERVICE REASON: gi bleed ORDERING PHYSICIAN: JULISA PETEROSN MD PROCEDURE: ABD PEL WO - CT ABDOMEN/PELVIS W/O CONTRAST CT ABDOMEN/PELVIS W/O CONTRAST REASON: gi bleed COMPARISON: None. FINDINGS: Lung bases are clear. There is a small left-sided pleural effusion. There is coronary calcifications suggesting coronary artery disease. There is suggestion of small pericardial effusion. There is a moderate size hiatal hernia. . There are no focal liver lesions. There are normal-appearing kidneys.. Spleen and pancreas appear unremarkable. The gallbladder appears normal as well. There is a feeding gastrostomy tube in place. Bowel loops appear unremarkable. This includes normal appearance of the appendix . There is fecal stasis in the rectal vault. Abutting the right lobe of the bowel in the right lower quadrant and abutting the right psoas muscle there is a a cystic structure measuring 5.9 x 3.9 cm. There is no evidence of free fluid or intraperitoneal air. There are no focal fluid collections. The retroperitoneum appear normal as do pelvic soft tissue structures. Aorta and iliac vessels demonstrate diffuse atherosclerotic changes. The anterior abdominal wall is intact. Osseous structures appear unremarkable. The uterus is surgically absent. IMPRESSION: 1. No acute process seen in CT of abdomen and pelvis without intravenous contrast 2. In the right adnexal region there is a cystic structure measuring 5.9 x 3.9 cm 3. Fecal stasis impaction seen in the rectal vault CT was performed with one or more following dose reduction techniques: automated exposure control, adjustment of the mA and kv according to patient's size, or use of a iterative reconstruction technique. DICTATED BY: RENA MADDOX MD DATE: 01/22/25 1044 ELECTRONICALLY SIGNED BY: RENA MADDOX MD DATE: 01/22/25 1051 PATIENT: JUSTIN KLINE MR#: [id number] : 1955 SEX: F AGE: 70 LOCATION: [facility] ORDER 9 STATUS: [facility] REPORT#: [id number] SERVICE 7 REASON: cp ORDERING PHYSICIAN: JULISA PETERSON MD PROCEDURE: CXR1VW - CHEST 1VW EXAM: Chest radiograph 1 view HISTORY: Chest pain COMPARISON: None FINDINGS: No pulmonary consolidations. No pleural effusion or pneumothorax. Enlarged cardiac silhouette. Tortuous calcified aorta. No overt congestion. Degenerative changes. IMPRESSION: No acute cardiopulmonary disease. /[place] DICTATED BY: DESTINY CASTELLANOS MD DATE: 01/22/251058 ELECTRONICALLY SIGNED BY: DESTINY CASTELLANOS MD DATE: 01/22/25 105 ASSESSMENT: Acute renal failure Anemia Septic shock requiring pressors, POA Acute metabolic encephalopathy POA Acute Hypoxic rep failure requiring intubation for airway protection POA Acute complicated cystitis POA Acute on chronic anemia 2/ GI Bleed (Hematemesis) POA Hyperglycemia in the presence of type 2 diabetes mellitus, POA right adnexal region there is a cystic structure measuring 5.9 x 3.9 cm Thrombocytosis Hypokalemia Electrolyte derangement (hypokalemia, hypocalcemia) severe Hypoalbuminemia Malnutrition Transaminitis Elevated TSH suspected myxedema Uncontrolled type 2 diabetes mellitus Essential hypertension Anemia Prior history of CVA Right [id number] amputation G-tube in situ Bed ridden Recent hospitalization [facility] for hematemesis PLAN: Labs, diagnostic, radiologic exams reviewed and interpreted by myself and supervising physician. We have reviewed external records in detail Potassium replacement has been ordered Pending MRI of brain Require close monitoring of renal function and electrolytes Order CBC, CMP, and electrolytes in am Continue with antibiotics Continue mechanical ventilation and sedation Continue with IV pressors Monitor blood pressure adjust medication doses as needed Avoid hypotensive episodes May use Dilaudid 0.5 mg IV every 6 hours as needed for severe pain Monitor blood sugars Strict intake, output, and daily weight should be monitored Please renally adjust medications Avoid nephrotoxic and nonsteroidal drugs Avoid contrast if possible Will continue to monitor renal function, anemia, electrolytes Treatment plan discussed with patient Questions were answered We have discussed with the other team physicians in detail about the care plan We will continue to monitor the patient closely Total critical care time spent with patient, nursing staff, critical care team over 35 minutes ATTESTATION BY PHYSICIAN I have seen and examined the patient. I reviewed the documentation, medical decision making, and treatment plan as noted by the mid-level provider above. I agree with the findings and plan of care. CHRISTELLE SIMENTAL MD, [facility] Feb 01, 2025 11:47
--- NOTE | 2025-02-01 12:03 | PN ---
[facility] PROGRESS NOTE Date of Service: Feb 01, 2025 Time of Service: 8:40 SUBJECTIVE: 70-year-old female with past medical history of diabetes mellitus type 2, hypertension, anemia, history of CVA, history of right below-knee amputation who presented to the hospital secondary to hematemesis. Patient is currently intubated and sedated. The patient's history is mostly obtained from patient's who is present at bedside and from ED provider. The patient was noted to have black colored vomit at home which started yesterday. She has a history of peptic ulcer disease. She also has a PEG tube placed around two weeks ago. Peg tube was placed in [facility]. Per patient is able to swallow better now. denied any fever, chills, shortness for breath, chest pain. History is fairly limited at this time as patient is not able to participate in conversation. Labs were Notable for white count of 9.1, hemoglobin was 9.1, MCV was 86.7, platelet count was 456 K, sodium was 138, potassium was 3.1, bicarb was , creatinine was 1.7, glucose was 234, alk-phos was 153, total protein was 5.0, albumin was 0.9, lipase was negative normal Underwent a CT abdomen pelvis which showed no acute process in the CT abdomen without IV contrast. Patient was noted to have cystic structure in the right adrenal region measuring 5.9 x 3.9 cm. The patient also had fecal impaction n oted. In the ED patient had episode of hematemesis and she was intubated for airway protection by ED provider. 01/23/2025: The patient is examined at the bedside. She was sedated and not responsive during my visit. GI performed EGD in the morning and they have observed no active bleeding. Nurse notified an unstageable wound on sacrum for which Wound consult is placed today. We will be manage as per critical Care recommendations. 01/24/2025: The patient is examined at the bedside. She was sedated and not responsive during my visit. Her arms are swollen. Her vitals are normal except for blood pressure is 97/51. Her labs are in the normal range except for Hb is 6.6, chloride is 113, BUN is 39, creatinine is 2.4, iron is 28, TIBC is 44, % saturation is 63.6, TSH is 7.62. Her urine culture grew 10,000-50,000 CFU. Identification and susceptibility are in process. Blood culture show no growth after 48 hours. Renal ultrasound show renal parenchymal disease. As her hemoglobin is low she received a blood transfusion. After the transfusion her hemoglobin is 7.1. We ordered a bilateral upper limb doppler which showed evidence of DVT. Gastroenterology was consulted to give recommendations on starting anticoagulation. GI recommended high dose Protonix drip for 48 hours and carafate 1gm PO QID, after 48 hours start heparin drip. IR was called to ask about the option of placing an SVC filter, and they recommended mechanical thrombectomy. The patient is not a good candidate for an SVC filter. A urinalysis, urine electrolytes, urine protein were ordered today. Urinalysis showed turbid urine, protein >300, ketones 5, moderate occult blood, moderate leukocyte esterase, RBC 6 to 10, WBC is TNTC, protein 410.9, sodium is 43, p otassium is 36, chloride is 40. 01/25/2025: The patient is examined at the bedside. She was sedated and not responsive during my visit. Her arms are swollen. Her vitals are normal. Her labs are in the normal range except for Hb is 5.9, WBC is 11.2, Cl is 112, potassium is 3.2, CO2 is 19, BUN is 40 creatinine is 2.6. As her hemoglobin is low we gave a tr ansfusion and the repeat Hb is 7.4. Gastroenterology will do EGD and colonoscopy tomorrow morning. Hematology is consulted and they recommended same management. Wound care recommended to cleanse with normal saline, pat dry, apply medihoney, cover with allevyn, change daily and prnKeep wounds clean and dry , Offloading/reposition q 2 hours. Bleeding scan showed no evidence of gastrointestinal hemorrhage. 01/26/2025: The patient is examined at the bedside. She was sedated and not responsive during my visit. Her arms are swollen. Her vitals are normal except for blood pressure which is 96/45. Her labs are in the normal range except for Hb is 8.7, K is 2.8, Cl is 112, CO2 is 19, BUN is 37, creatinine is 2.5, Albumin is 1.1. She is scheduled for an EGD and colonoscopy today. We replaced the potassium and the repeat potassium levels are 2.8 and 3.1. 01/27/2025: Patient is examined at the bedside. She was sedated and not responsive during my visit. Her arms are swollen. Her vitals are normal except for blood pressure which is 94/49. Her labs are in the normal range except for hemoglobin is 8.7, potassium is 2.9, chloride is 112, BUN is 33, creatinine is 2.5, albumin is 1, CRP is 223.1. Urine culture showed ESBL which is sensitive to Zosyn, meropenem and levofloxacin. She underwent endoscopy and colonoscopy yesterday which showed no evidence of bleeding. Gastroenterology recommended to follow within 1 week after discharge. Chest x-ray showed minimal pulmonary congestion. The nurse told us that she will try waking up the patient, extubate her and try spontaneous breathing trial. 01/28/2025: Patient is seen and examined at the bedside. She was sedated and not responsive during my visit. Her vital signs are in the normal range except for blood pressure is 97/55. Labs are in the normal range except for hemoglobin is 8.3, WBCs 12.9, potassium is 3.2, chloride is 100, bicarb is 16, BUN is 33, creatinine is 2.5, glucose is 181, ALP is 154. Yesterday the nurse tried to extubate her but she could not extubate as she is not waking up and she can't not protect her airway. She is currently on heparin drip. Critical care stopped her Protonix drip as she is fluid overloaded and they started protonix 40 mg b.i.d. We will continue to follow recommendations from critical Care and Gastroenterology. 01/29/2025: Patient is seen and examined at the bedside. She was sedated and not responsive during my visit. Her vital signs are in the normal range except for blood pressure is 90/48. Labs are in the normal range except for hemoglobin 7.7, potassium 2.9, sodium 146, chloride 113, bicarbonate 20, BUN 33, creatinine 2.5. Chest x-ray showed that there is an infiltrate in the left lower lung with a left-sided pleural effusion. She is currently on heparin drip and Protonix 40 mg b.i.d. We will continue to follow recommendations from critical Care and Gastroenterology. 01/30/2025: She was evaluated at the bedside this morning. As per nurse she passed black tarry stool this morning. She is sedated and intubated at pain sitting tidal volume 400 mL/minute, FiO2 100%, peep 5 and RR 14. She is on pressor support with Levophed 0.05. The remarkable lab is for hemoglobin 8, ALP 321, albumin 0.8, creatinine 2.5, chloride 112, bicarbonate 20. She is continued on linezolid, Zosyn, levothyroxine, levetiracetam, Protonix, Levophed. Heparin drip held for temporarily because of supratherapeutic APTT. We will continue to follow recommendations from critical Care and Gastroenterology. 01/31/2025: She was seen and evaluated at the bedside this morning. As per nurse she passed greenish colored stool this morning. She is off sedation medicine but not responding to stimuli. CT brain has been ordered for further evaluation. She continues to remain intubated at tidal volume 400 mL/minute, FiO2 30%, peep 5 and RR 14. She is continued on linezolid, and Zosyn. Cr and BUN this morning have been 2.8 and 31 respectively. Urine output in past 24 hours have been 0.0 3ml/kg/hr (75ml). We have ordered ammonia levels this morning. We will continue to follow recommendations from critical Care and Gastroenterology. 02/01/2025: Patient was seen and evaluated at bedside. Her was present besides her. She continues to be unresponsive with sluggish movement of eyes. She is off sedation and vasopressor support. Her CT scan done yesterday showed Ill-defined hypodensity with loss of rodriguez-white matter interface in the right frontal and high parietal lobes concerning for possible infarct. She will further undergo MRI and EEG. Neurology is on the board. Her ammonia levels were elevated (48) for which lactulose was added today. Due to hyperglycemia, sliding scale insulin was also adjusted. REVIEW OF SYSTEMS Unable to obtain as patient is sedated PHYSICAL EXAM GENERAL APPEARANCE: She is currently intubated and unresponsive this morning. NEUROLOGICAL: Unable to obtain. HEENT: Face is symmetric. Other examination couldn't be done. NECK: Supple. No submental, submandibular, pre-/postauricular, occipital or supraclavicular lymphadenopathy. CHEST: Normal chest expansion. LUNGS: Absence of any rales, rhonchi or any wheezing. CARDIOVASCULAR: Regular. S1 and S2 normal. No appreciable rubs, murmurs or gallops. ABDOMEN: Soft, nontender, and nondistended. There is no rebound, voluntary guarding, or rigidity. Patient has a PEG tube in place : Deferred. EXTREMITIES: Below-knee amputation of the right lower extremity SKIN: No skin breakdown. Vital Signs (last 8hr) Date Time Temp Pulse Resp B/P (MAP) Pulse Ox O2 Delivery O2 Flow Rate FiO2 02/01/25 11:48 89 30 02/01/25 09:15 30 02/01/25 09:14 89 30 02/01/25 08:45 86 23 105/58 (74) 100 30 02/01/25 08:30 81 22 101/51 (68) 100 30 02/01/25 08:15 82 24 99/53 (68) 100 30 02/01/25 08:00 97.2 02/01/25 08:00 87 23 105/55 (72) 100 30 02/01/25 08:00 100 CPAP+ 30 30 Ventilator+ 02/01/25 07:45 92 23 105/57 (73) 99 30 02/01/25 07:30 88 20 98/54 (69) 100 30 02/01/25 07:15 97.3 89 23 101/51 (68) 100 30 02/01/25 07:00 90 24 106/64 (78) 99 30 02/01/25 06:21 30 02/01/25 06:14 90 30 02/01/25 06:00 93 21 123/71 (88) 100 02/01/25 05:45 93 19 140/73 (95) 100 02/01/25 05:30 92 15 123/75 (91) 100 02/01/25 05:15 94 15 121/73 (89) 100 02/01/25 05:00 97 19 124/63 (83) 100 02/01/25 04:45 94 16 140/52 (81) 100 02/01/25 04:30 94 23 114/59 (77) 100 02/01/25 04:16 83 30 02/01/25 04:15 90 22 111/70 (84) 100 LABS: Laboratory: Test 02/01/25 11:36 02/01/25 08:10 02/01/25 04:50 01/31/25 12:38 Range/Units Whole Blood Glucose 219 H 70-110 MG/DL Prothrombin Time 12.9 H 9.6-11.6 SEC Prothromb Time International Ratio 1.24 H 0.85-1.15 Activated Partial Thromboplast Time 54.7 H 26.3-35.5 SEC White Blood Count 8.5 4.8-10.8 K/uL Red Blood Count 2.47 L 4.00-5.50 MIL/uL Hemoglobin 7.3 L 12.0-16.0 g/dL Hematocrit 22.4 L 36-48 % Mean Corpuscular Volume 90.7 79-99 fL Mean Corpuscular Hemoglobin 29.6 27.0-33.0 pg Mean Corpuscular Hemoglobin Concent 32.6 32.0-36.0 g/dL Red Cell Distribution Width 19.2 H 11.0-15.5 % Platelet Count 149 130-400 K/uL Mean Platelet Volume 11.6 H 7.5-10.5 fL Immature Granulocyte % (Auto) 0.7 0-1 % Neutrophils (%) (Auto) 80.0 H 40.0-77.0 % Lymphocytes (%) (Auto) 13.0 L 21.0-51.0 % Monocytes (%) (Auto) 3.3 3.0-13.0 % Eosinophils (%) (Auto) 2.5 0.0-8.0 % Basophils (%) (Auto) 0.5 0.0-5.0 % Neutrophils # (Auto) 6.8 1.8-7.7 K/uL Lymphocytes # (Auto) 1.1 1.0-4.8 K/uL Monocytes # (Auto) 0.3 0.1-1.0 K/uL Eosinophils # (Auto) 0.21 0.00-0.70 K/uL Basophils # (Auto) 0.04 0.00-0.20 K/uL Absolute Immature Granulocyte (auto 0.06 0-1 K/uL Nucleated Red Blood Cells 1.1 H 0.0-0.19 % Sodium Level 142 136-145 mmol/L Potassium Level 2.8 *L 3.5-5.1 mmol/L Chloride Level 109 101-111 mmol/L Carbon Dioxide Level 18 L 21-32 mmol/L Blood Urea Nitrogen 33 H 7-18 mg/dL Creatinine 2.9 H 0.5-1.0 mg/dL Glomerular Filtration Rate Calc 17 >90 mL/min Random Glucose 295 H 70-105 mg/dL Total Calcium 8.4 L 8.5-10.1 mg/dL Phosphorus Level 1.7 L 2.5-4.9 mg/dL Magnesium Level 2.00 1.80-2.40 mg/dL Total Bilirubin 0.4 0.2-1.0 mg/dL Aspartate Amino Transf (AST/SGOT) 28 10-37 U/L Alanine Aminotransferase (ALT/SGPT) 9 L 12-78 U/L Alkaline Phosphatase 484 H 50-136 U/L Total Protein 4.4 L 6.0-8.3 g/dL Albumin 0.7 L 3.5-5.0 g/dL Ammonia 48 H 11-32 umol/L Thyroid Stimulating Hormone (TSH) 3.07 # 0.36-3.74 uIU/mL Test 01/30/25 14:16 Range/Units Blood Gas Specimen Type Arterial Arterial Blood pH 7.406 7.350-7.450 Arterial Blood Partial Pressure CO2 29 L 32-45 mmHg Arterial Blood Partial Pressure O2 125.9 H 83.0-108.0 mmHg Arterial Blood HCO3 17.9 L 21.0-28.0 mmol/L Arterial Blood Oxygen Saturation 98.0 94.0-98.0 % Arterial Blood Base Excess -5.9 L -2.0-3.0 mmol/L Hemoglobin (Blood Gas) 9.2 L 12.0-16.0 g/dL Sodium (Blood Gas) 140 136-145 MMOL/L Bedside Potassium (Blood Gas) 3.4 3.4-4.5 MMOL/L Bedside Chloride (Blood Gas) 113 H 98-107 MMOL/L Bedside Glucose (Blood Gas) 219 H 65-95 MG/DL Bedside Ionized Calcium (Blood Gas) 1.16 1.15-1.33 MMOL/L Bedside Lactic Acid (Blood Gas) 2.56 H 0.36-0.75 MMOL/L Blood Gas Temperature 37.0 35.5-37.0 CELSIUS Blood Gas Vent Mode CPAP 5,10 ROOM AIR FiO2 30.0 % Blood Gas PEEP 5 cm H2O Blood Gas Specimen Comment TONY URIBE Current Medications Medications (Trade) Dose Ordered Sig/Arik Route PRN Reason Start Time Stop Time Status Last Admin Dose Admin Albumin Human 50 ml @ 0 mls/hr Q8H6 IV 01/24/25 14:00 01/24/25 22:00 DC 01/24/25 20:45 1,200 MLS/HR Artificial Tears (Artificial Tears) 1 DROP OR AD Q8H OU 01/23/25 19:30 02/22/25 19:29 02/01/25 03:41 1 DROP Bumetanide (Bumex 1mg Vial) 1 mg ONCE PRN IVP AFTER TRANSFUSION 01/24/25 08:00 01/24/25 09:23 DC Bumetanide (Bumex 1mg Vial) 2 mg ONCE PRN IVP AFTER TRANSFUSION 01/24/25 14:00 01/24/25 14:00 DC 01/24/25 13:28 2 MG Cefepime HCl (MAXipime 2 gm vial) 2 gm Q24H IVPB 01/23/25 12:00 01/26/25 12:05 DC 01/26/25 11:38 2 GM Ceftriaxone Sodium (ROCEphine 1G INJ) 1 gm Q24H IVPB 01/22/25 12:00 01/22/25 16:25 DC 01/22/25 14:18 1 GM Chlorhexidine Gluconate (Peridex) 15 ml TID MM 01/23/25 21:00 02/06/25 20:59 02/01/25 08:11 15 ML Dexmedetomidine/ Sodium Chloride (PRECEdex 400MCG/ 100ML-NS) 400 mcg PROTOCOL IV 01/27/25 15:30 02/26/25 15:29 Dextrose (D50w) 50 ml AD PRN IV HYPOGLYCEMIA PROTOCOL 01/22/25 15:30 02/21/25 15:29 Epoetin Carlton-epbx (Retacrit) 10,000 unit QWEEK SQ 01/31/25 15:00 03/02/25 14:59 01/31/25 15:16 10,000 UNIT Fentanyl Citrate 100 ml @ 2.5 mls/hr PROTOCOL IV 01/22/25 12:00 01/22/25 11:55 DC Fentanyl Citrate 100 ml @ 2.5 mls/hr PROTOCOL IV 01/22/25 12:00 01/27/25 15:35 DC 01/27/25 05:34 2.5 MLS/HR Glucagon (Glucagon 1mg Kit) 1 mg AD PRN IM HYPOGLYCEMIA PROTOCOL 01/22/25 15:30 02/21/25 15:29 Heparin Sodium (Porcine) (HEParin 5,000 UNIT VIAL) *calculation based on ACTUAL B... AD PRN IV HEPARIN PROTOCOL 01/27/25 16:30 02/26/25 16:29 Heparin Sodium/ Dextrose 250 ml @ 0 mls/hr Q6H IV 01/27/25 16:30 02/26/25 16:29 01/31/25 17:28 0 MLS/HR Insulin Human Regular (humuLIN R 100 UNIT/ML 3ML) INSULIN SLIDING SCAL... ACHS SQ 01/22/25 21:00 01/25/25 20:51 DC 01/25/25 16:29 3 UNIT Insulin Human Regular (humuLIN R 100 UNIT/ML 3ML) INSULIN SLIDING SCAL... Q6H6 SQ 01/26/25 10:00 02/25/25 09:59 02/01/25 06:30 5 UNIT Leptospermum Honey ([facility]) 1 APPLICATION DAILY TP 01/26/25 09:00 02/25/25 08:59 02/01/25 08:12 1 APPL Levetiracetam (kepPRA 500 MG TABLET) 500 mg BID PO 01/22/25 21:00 01/22/25 22:13 DC Levetiracetam 500 mg/Sodium Chloride 100 ml @ 400 mls/hr Q12H9 IV 01/22/25 22:00 02/21/25 21:59 02/01/25 08:11 400 MLS/HR Levothyroxine Sodium (SYNTHroid VIAL 100MCG) 100 mcg SYN IV 01/23/25 06:30 02/22/25 06:29 02/01/25 06:19 100 MCG Linezolid 300 ml @ 150 mls/hr Q12H IV 01/24/25 08:00 02/03/25 07:59 02/01/25 08:10 150 MLS/HR Magnesium Sulfate 50 ml @ 0 mls/hr PROTOCOL PRN IV Hypomagnesemia 01/22/25 15:30 02/21/25 15:29 01/29/25 08:35 25 MLS/HR Metronidazole/ Sodium Chloride 100 ml @ 100 mls/hr Q8H6 IVPB 01/22/25 22:00 01/26/25 12:05 DC 01/26/25 06:13 100 MLS/HR Midazolam HCl 50 ml @ 0 mls/hr PROTOCOL IV 01/22/25 12:00 01/27/25 15:35 DC 01/27/25 09:10 5 MLS/HR Norepinephrine 250 ml @ 0 mls/hr PROTOCOL IV 01/22/25 10:00 01/23/25 09:52 DC 01/22/25 14:24 60 MLS/HR Norepinephrine Bitartrate (Norepineph 16 Mg/250ml NS Premix) per protocol PROTOCOL IV 01/23/25 10:00 02/22/25 09:59 01/28/25 17:15 16 MG Octreotide Acetate 1250 mcg/ Sodium Chloride 250 ml @ 0 mls/hr PROTOCOL IV 01/22/25 12:30 01/22/25 12:17 DC Octreotide Acetate 1250 mcg/ Sodium Chloride 250 ml @ 0 mls/hr PROTOCOL IV 01/22/25 12:30 01/24/25 09:23 DC 01/22/25 12:41 5 MLS/HR Pantoprazole Sodium (PROTonix 40MG INJ) 40 mg BID IVP 01/24/25 21:00 01/24/25 15:02 DC Pantoprazole Sodium (PROTonix 40MG INJ) 40 mg BID IVP 01/28/25 21:00 02/27/25 20:59 02/01/25 08:11 40 MG Pantoprazole Sodium 80 mg/ Sodium Chloride 100 ml @ 10 mls/hr Q10H IV 01/22/25 09:00 01/24/25 09:23 DC 01/24/25 09:17 10 MLS/HR Pantoprazole Sodium 80 mg/ Sodium Chloride 100 ml @ 10 mls/hr Q10H IV 01/24/25 15:00 01/28/25 13:39 DC 01/28/25 00:06 10 MLS/HR Pharmacy Profile Note (Pharmacy Communication) 1 each ONCE MISC 01/22/25 12:00 01/22/25 11:53 DC Pharmacy Profile Note (Pharmacy Communication) 1 each ONCE MISC 01/22/25 12:00 01/22/25 11:53 DC Pharmacy Profile Note (Pharmacy Communication) 1 each ONCE MISC 01/23/25 13:00 01/23/25 13:09 DC Pharmacy Profile Note (Pharmacy Communication) 1 each ONCE MISC 01/24/25 08:00 01/24/25 07:51 DC Phenylephrine HCl 100 mg/Sodium Chloride 250 ml @ 0 mls/hr AD PRN IV TITRATE 01/22/25 17:00 02/21/25 16:59 01/23/25 09:30 0 MLS/HR Piperacillin Sod/ Tazobactam Sod (Zosyn 3.375gm+NS 50ml) 3.375 gm Q8H IV 01/26/25 12:30 02/05/25 12:29 02/01/25 03:40 3.375 GM Potassium Chloride 100 ml @ 50 mls/hr AD PRN IV POTASSIUM PROTOCOL 01/22/25 15:30 01/24/25 07:50 DC Potassium Chloride 100 ml @ 100 mls/hr AD PRN IV POTASSIUM PROTOCOL 01/22/25 15:30 02/21/25 15:29 02/01/25 06:18 100 MLS/HR Potassium Chloride (K-Dur/Klor-Con 20meq) 20 meq AD PRN PO POTASSIUM PROTOCOL 01/22/25 15:30 02/21/25 15:29 01/26/25 06:19 20 MEQ Potassium Chloride (KCl 10% Elixir 20meq/15ml) 20 meq AD PRN PO POTASSIUM PROTOCOL 01/22/25 15:30 02/21/25 15:29 01/29/25 08:35 20 MEQ Propofol (DIPRivan 1000MG/ 100ML) 1,000 mg PROTOCOL PRN IV SEDATION 01/22/25 12:00 01/22/25 11:55 DC Sodium Bicarbonate (Sodium Bicarbonate) 650 mg BID PO 01/24/25 21:00 02/23/25 20:59 02/01/25 08:12 650 MG Sodium Chloride 1,000 ml @ 150 mls/hr Q6H40M IV 01/22/25 12:00 01/23/25 10:56 DC 01/23/25 02:45 150 MLS/HR Sucralfate (Carafate) 1 gm BID PO 01/23/25 21:00 01/23/25 11:41 DC Sucralfate (Carafate) 1 gm QID PO 01/24/25 17:00 02/23/25 16:59 02/01/25 08:12 1 GM Sucralfate (Carafate) 1 gm TID PO 01/23/25 14:00 01/24/25 15:02 DC 01/24/25 13:28 1 GM Thiamine HCl 100 mg/Sodium Chloride 50 ml @ 100 mls/hr Q24H IV 01/23/25 14:00 01/25/25 14:29 DC 01/25/25 13:53 100 MLS/HR Vancomycin HCl (Vancomycin 750mg) 750 mg Q24H IVPB 01/23/25 17:00 01/23/25 10:56 DC Vancomycin HCl (Vancomycin Protocol) 1 each AD IV 01/22/25 15:00 01/23/25 10:56 DC Vasopressin 40 units/Sodium Chloride 40 ml @ 0 mls/hr PROTOCOL IV 01/25/25 09:30 02/24/25 09:29 Wound Care/ Dressing Products (Venelex Ointment) BID TP 01/25/25 21:00 01/25/25 15:58 DC DIAGNOSTICS / RADIOLOGY: [ ]PATIENT: JUSTIN KLINE MR#: [id number] : 1955 SEX: F AGE: 70 LOCATION: 2CH ORDER 3 STATUS: ADM IN REPORT#: [id number] SERVICE 1 REASON: pp ORDERING PHYSICIAN: RERE BLAIR PROCEDURE: CXR1VW - CHEST 1VW EXAM: CR Chest, 1 View. CLINICAL HISTORY: pp COMPARISON: 01/30 20:49 EDT CR - CHEST 1VW FINDINGS: Essentially stable since prior exam. ETT tip 4 cm above arminda. Left PICC tip in SVC. stable left perihilar and left basilar airspace disease and small left pleural effusion. Right lung remains relatively clear. Negative for pneumothorax. Heart size, pulmonary vascularity and mediastinum within normal limits. PLEURAL SPACES: No evidence of pleural effusion or pneumothorax. MEDIASTINUM: Cardiac size and mediastinal contours within normal limits. BONES: No aggressive appearing osseous lesion seen. IMPRESSION: Stable chest. Support lines and tubes appear appropriate position and stable. Stable left perihilar and left basilar airspace disease and small left pleural effusion. Right lung remains clear. /[place] DICTATED BY: RADHA BECERRA Jr., MD DATE: 01/31/251312 ELECTRONICALLY SIGNED BY: RADHA BECERRA Jr., MD DATE: 01/31/251312 ATIENT: JUSTIN KLINE MR#: [id number] : 1955 SEX: F AGE: 70 LOCATION: 2CH ORDER 1510 STATUS: ADM IN REPORT#: [id number] SERVICE 1508 REASON: HGB drop, assess for possible GI bleed ORDERING PHYSICIAN: KIRSTEN KRUSE MD PROCEDURE: GIBLEED - NM GI BLOOD LOSS IMAG Examination NM radiolabeled red blood cell study History Gastrointestinal bleeding Technique After IV administration of Tc-99m labeled red autologous blood cells, anterior projection images of the abdomen and pelvis were obtained dynamically for one hour. Findings Following administration of radiolabeled red blood cells, there is normal activity seen in cardiovascular and genitourinary structures, the liver and spleen. There is no evidence for extravasation of radiolabeled red blood cells during the examination. IMPRESSION: No evidence of gastrointestinal hemorrhage during the course of examination acquisition. /[place] DICTATED BY: RADHA BECERRA Jr., MD DATE: 01/25/251457 ELECTRONICALLY SIGNED BY: RADHA BECERRA Jr., MD DATE: 01/25/251457 ASSESSMENT: Hematemesis POA Hemorrhagic shock Acute complicated cystitis - ESBL Oliguria - urine output 0.03 mL/kg per hour (01/31/25) Acute hypoxic respiratory failure status post intubation for airway protection Peg tube placement Hyperammonemia Peptic ulcer disease DVT of bilateral upper limbs Starvation ketoacidosis Hypokalemia Hypophosphatemia Unstageable wound on sacrum Fecal impaction Obesity BMI 36.6 Knee injury versus underlying CKD Diabetes mellitus type 2 with associated hyperglycemia Severe hypoalbuminemia Hypertension Debility Small pericardial Effusion Left-sided pleural effusion PLAN: Hematemesis, peptic ulcer disease, POA - patient to be admitted to ICU -in reference to hematemesis. We will check H&H q.4 hours. Patient to have type and screen. If hemoglobin is less than seven. Patient will be receiving blood transfusion. - The patient will continue on Protonix drip and octreotide drip. - EGD done by Gastroenterology and have reported no active bleeding and clots in esophagus. - On 01/25/2025 her hemoglobin is 5.9, we gave 1 PRBC. Repeat Hb is 7.4. - GI wanted to do another EGD and colonoscopy showed no evidence of bleeding. - Bleeding scan showed no evidence of gastrointestinal hemorrhage. - gastroenterology recommended follow with them in 1 week after discharge. - Today her hemoglobin is 7.3 - Critical care stopped her Protonix drip as she is fluid overloaded and they started protonix 40 mg b.i.d. - We will continue to follow recommendations from critical Care and Gastroenterology. Acute hypoxic respiratory failure status post intubation for airway protection - critical care is on board and we will follow critical care recommendations regarding ventilator and sedation protocol - currently on ACVC, TV 400, RR 14, Fio2 30%, PEEP 5. - On 01/27/2025, nurse told us that she will try to wake up the patient, extubate her and try spontaneous breathing trial. -The nurse tried to extubate her but she could not extubate as she is not waking up and she can't not protect her airway. - CT scan of the brain on 01/31/2025 showed 1. Ill-defined hypodensity with loss of rodriguez-white matter interface in the right frontal and high parietal lobes concerning for possible infarct. Consider MRI 2. No acute intracranial hemorrhage. - Patient is pending brain EEG and MRI brain without contrast. Hemorrhagic shock - patient was placed on ON LEVOPHED. She is currently off vasopressors support. - we will follow critical Care recommendations in managing hemorrhagic shock - Vitals from today: 97/48, 94, 15 Oliguria - Patient's urine output on 01/31/2025 has been 0.03 mL/kg per hour. Total urine output is75 mL. - On 02/01/2025, total urine output is 100 mL, 0.04 mL/kg per hour - Patient's creatinine and BUN from today are 2.9 and 33 respectively. - Monitor input and output as well as electrolytes. - Avoid nephrotoxic drugs. - Evaluate patient for volume overload and fluid repletion. Hyperammonemia - Her ammonia levels from 01/31/2025 were 48. - Lactulose was added today. - Follow up with ammonia levels in the morning. Acute complicated cystitis - ESBL - Patient's urine culture came back positive for ESBL E coli - Patient was started on Zosyn q.8h and linezolid q.12h. DVT of bilateral upper limbs -US doppler of both upper limbs, results showed evidence of DVT. -Consulted gastroenterology for anticoagulation recommendations. They recommended to give high dose Protonix drip for 48 hours and carafate 1gm PO QID and after 48 hours start heparin drip. -Patient is not a candidate for SVC filter. -for supratherapeutic aPTT, heparin drip was held temporarily Starvation ketoacidosis Today her blood work show that sodium is 142, potassium is 2.8, chloride is 109, bicarbonate is 18. Her urinalysis from 01/24/2025 showed ketones in the urine. Unstageable wound on sacrum - we will request wound care -Wound care recommended to cleanse with normal saline, pat dry, apply medihoney, cover with allevyn, change daily and prnKeep wounds clean and dry , Offloading/reposition q 2 hours Hypokalemia Today her blood work showed that potassium is 2.8. She is being maintained on potassium replacement protocol Will repeat her labs tomorrow. Diabetes mellitus type 2 with associated hyperglycemia, Severe hypoalbuminemia, Hypertension, Debility, Small pericardial Effusion, Left-sided pleural effusion - echo showed no pericardial effusion, LVEF of 50-55% - continue insulin sliding scale. It was adjusted today as per glucose levels. - continue thiamine supplementation - Continue patient on cefepime, metronidazole for broad coverage - monitor vitals Q8 - monitor a.m. labs - nephrology was consulted and they have recommended to discontinue vancomycin, obtain urine analysis and complete renal ultrasound. -Repeated urinalysis, urine electrolytes, urine protein on 01/24/2025. Urinalysis showed turbid urine, protein >300, ketones 5, moderate occult blood, moderate leukocyte esterase, RBC 6 to 10, WBC is TNTC, protein 410.9, sodium is 43, potassium is 36, chloride is 40. GI prophylaxis: Pantoprazole ATTESTATION BY PHYSICIAN I have seen and examined the patient. I reviewed the documentation, medical decision making, and treatment plan as noted by the resident above. I agree with the findings and plan of care. VON ZAMORA MD, MUHAMMAD H MD Feb 01, 2025 12:03
[2025-02-01 13:25] LABS: CREATININE 2.9 mg/dL (0.5-1.0); GLOMERULAR FILTR. RATE CALC 17.0 mL/min (>90); GLUCOSE,RANDOM 245.0 mg/dL (70-105); SODIUM SERUM 143.0 mmol/L (136-145); UREA NITROGEN, BLOOD 34.0 mg/dL (7-18)
--- NOTE | 2025-02-01 13:29 | CONS ---
CONSULTATION NOTE Date of Service: Feb 01, 2025 Reason for Consultation: Evaluation of altered mental status Requesting Physician: [facility] HISTORY OF PRESENT ILLNESS: Ms. Wilhelm is a 70 years old patient with obesity, chronic kidney disease pres enting with altered mental status and decreased responsiveness. The patient experienced hypotension several days ago, with systolic blood pressures dropping to the 80s, requiring vasopressor support which was discontinued approximately 2 days prior to this evaluation. The patient is currently responding minimally to verbal stimuli but shows some improvement compared to previous assessments. There is concern for possible urinary tract infection, though sepsis has been ruled out. The patient's altered mental status may be related to a combination of sedation effects and underlying CKD. The patient is not able to provide her HPI the patient is intubated sedated mechanically ventilated. No family members at bedside Medical History - Chronic kidney disease REVIEW OF SYSTEMS Unable to complete patient is intubated and sedated PAST MEDICAL HISTORY: As stated above PAST SURGICAL HISTORY: Left [id number] amputation PAST SOCIAL HISTORY: Unknown FAMILY HISTORY: Unknown Coded Allergies: No Known Drug Allergies (Unverified Allergy, Unknown, 01/22/25) PHYSICAL EXAM EYES: Anicteric. Pupils equal and reactive. HENT: No oral thrush seen, moist Oral mucosa NECK: Supple, no JVD or thyromegaly. LUNGS: decreased breath sounds CARDIOVASCULAR: S1, S2 regular. No murmur heard. ABDOMEN: Soft, non tender, bowel sounds present, no organomegaly CENTRAL NERVOUS SYSTEM: intubated and sedated SKIN: Unstageable ulcer to left buttock noted with 100% slough with periwound erythema and unstageable ulcer to coccyx noted with 100% slough and periwound erythema LYMPHATICS: No peripheral lymphadenopathy MUSCULOSKELETAL: Right BKA EXTREMITIES: No cyanosis or clubbing BACK: No deformity GENITOURINARY: No dysuria or hematuria Vital Sign (Last 24 Hours) 02/01/25 02/01/25 02/01/25 08:00 08:45 11:48 Pulse 89 Resp 23 B/P (MAP) 105/58 (74) Pulse Ox 100 O2 Delivery CPAP+ Ventilator+ O2 Flow Rate 30 FiO2 30 Intake & Output (last 24hrs) 01/31/25 01/31/25 02/01/25 15:00 23:00 07:00 Intake Total 607.2 ml 977.2 ml 880.2 ml Output Total 100 ml Balance 607.2 ml 977.2 ml 780.2 ml LABS: Laboratory: Test 02/01/25 11:36 02/01/25 08:10 02/01/25 04:50 01/31/25 12:38 Range/Units Whole Blood Glucose 219 H 70-110 MG/DL Prothrombin Time 12.9 H 9.6-11.6 SEC Prothromb Time International Ratio 1.24 H 0.85-1.15 Activated Partial Thromboplast Time 54.7 H 26.3-35.5 SEC White Blood Count 8.5 4.8-10.8 K/uL Red Blood Count 2.47 L 4.00-5.50 MIL/uL Hemoglobin 7.3 L 12.0-16.0 g/dL Hematocrit 22.4 L 36-48 % Mean Corpuscular Volume 90.7 79-99 fL Mean Corpuscular Hemoglobin 29.6 27.0-33.0 pg Mean Corpuscular Hemoglobin Concent 32.6 32.0-36.0 g/dL Red Cell Distribution Width 19.2 H 11.0-15.5 % Platelet Count 149 130-400 K/uL Mean Platelet Volume 11.6 H 7.5-10.5 fL Immature Granulocyte % (Auto) 0.7 0-1 % Neutrophils (%) (Auto) 80.0 H 40.0-77.0 % Lymphocytes (%) (Auto) 13.0 L 21.0-51.0 % Monocytes (%) (Auto) 3.3 3.0-13.0 % Eosinophils (%) (Auto) 2.5 0.0-8.0 % Basophils (%) (Auto) 0.5 0.0-5.0 % Neutrophils # (Auto) 6.8 1.8-7.7 K/uL Lymphocytes # (Auto) 1.1 1.0-4.8 K/uL Monocytes # (Auto) 0.3 0.1-1.0 K/uL Eosinophils # (Auto) 0.21 0.00-0.70 K/uL Basophils # (Auto) 0.04 0.00-0.20 K/uL Absolute Immature Granulocyte (auto 0.06 0-1 K/uL Nucleated Red Blood Cells 1.1 H 0.0-0.19 % Sodium Level 142 136-145 mmol/L Potassium Level 2.8 *L 3.5-5.1 mmol/L Chloride Level 109 101-111 mmol/L Carbon Dioxide Level 18 L 21-32 mmol/L Blood Urea Nitrogen 33 H 7-18 mg/dL Creatinine 2.9 H 0.5-1.0 mg/dL Glomerular Filtration Rate Calc 17 >90 mL/min Random Glucose 295 H 70-105 mg/dL Total Calcium 8.4 L 8.5-10.1 mg/dL Phosphorus Level 1.7 L 2.5-4.9 mg/dL Magnesium Level 2.00 1.80-2.40 mg/dL Total Bilirubin 0.4 0.2-1.0 mg/dL Aspartate Amino Transf (AST/SGOT) 28 10-37 U/L Alanine Aminotransferase (ALT/SGPT) 9 L 12-78 U/L Alkaline Phosphatase 484 H 50-136 U/L Total Protein 4.4 L 6.0-8.3 g/dL Albumin 0.7 L 3.5-5.0 g/dL Ammonia 48 H 11-32 umol/L Thyroid Stimulating Hormone (TSH) 3.07 # 0.36-3.74 uIU/mL Test 01/30/25 14:16 Range/Units Blood Gas Specimen Type Arterial Arterial Blood pH 7.406 7.350-7.450 Arterial Blood Partial Pressure CO2 29 L 32-45 mmHg Arterial Blood Partial Pressure O2 125.9 H 83.0-108.0 mmHg Arterial Blood HCO3 17.9 L 21.0-28.0 mmol/L Arterial Blood Oxygen Saturation 98.0 94.0-98.0 % Arterial Blood Base Excess -5.9 L -2.0-3.0 mmol/L Hemoglobin (Blood Gas) 9.2 L 12.0-16.0 g/dL Sodium (Blood Gas) 140 136-145 MMOL/L Bedside Potassium (Blood Gas) 3.4 3.4-4.5 MMOL/L Bedside Chloride (Blood Gas) 113 H 98-107 MMOL/L Bedside Glucose (Blood Gas) 219 H 65-95 MG/DL Bedside Ionized Calcium (Blood Gas) 1.16 1.15-1.33 MMOL/L Bedside Lactic Acid (Blood Gas) 2.56 H 0.36-0.75 MMOL/L Blood Gas Temperature 37.0 35.5-37.0 CELSIUS Blood Gas Vent Mode CPAP 5,10 ROOM AIR FiO2 30.0 % Blood Gas PEEP 5 cm H2O Blood Gas Specimen Comment TONY URIBE PROBLEM LIST / PLAN: Ms Wilhelm is a patient with chronic kidney disease presenting with altered mental status and recent history of hypotension requiring pressors. Altered metabolic encephalopathy Assessment: Patient is currently minimally responsive, showing slight improvement from previous state. Recent history of hypotension with systolic b lood pressure dropping to 80s, requiring pressor support which was discontinued 2 days ago. Differential diagnoses include metabolic encephalopathy secondary to CKD, medication effect, or possible intracranial pathology. An MRI of the brain was ordered to further evaluate the etiology of altered mental status. Plan: - Proceed with previously ordered MRI of the brain - Continue to monitor mental status and level of consciousness - Reassess after MRI results are available Chronic Kidney Disease Assessment: Patient has a known history of chronic kidney disease. This may be contributing to her current altered mental status, potentially through uremic encephalopathy or medication effects. Plan: - Continue current management of CKD - Monitor renal function Recent Hypotension Assessment: Patient experienced hypotension 3-4 days ago, with systolic blood pressure dropping to the 80s. Pressor support was required and was discontinued 2 days ago. Current blood pressure appears to be stable without pressor support. Plan: - Continue to monitor vital signs, including blood pressure - Assess for any recurrence of hypotension Thank you for your consultation ADOLFO HOLLAND MD Feb 01, 2025 13:29
--- NOTE | 2025-02-01 14:52 | PN ---
[facility] PROGRESS NOTE Date Patient Seen: Feb 01, 2025 Time of Visit: 14:39 Supervising Physician: DAYANA JUNG MD Primary Care Physician: NANDO HUYNH Outpatient Specialists: [ ] Inpatient Consults: DR RAMOS, DR HEAD, DR SIMENTAL Assessment: Acute metabolic encephalopathy vs CVA Hemorrhagic shock and septic shock, RESOLVED Acute complicated cystitis - ESBL to urine Acute hypoxemic respiratory failure (intubated) Deep vein thrombosis in the right subclavian and axillary veins and Right basilic vein thrombosis. UGIB with hematemesis Acute on chronic anemia 2nd to above Type II diabetes mellitus with hyperglycemia Dysphagia with G-tube Acute on chronic kidney disease Unstageable wound on sacrum Right BKA INTERVAL HISTORY: Chart reviewed including all laboratory and imaging results. Continues intubated off sedation x4 days. GCS of 6. Withdrawals to pain bilateral pupils 3. Sluggish. Gag reflex intact. Hemodynamically stable. Off pressors. Continues on heparin drip. No major overnight events reported. Pending brain MRI. Chest x-ray with left lower lobe infiltrates ET tube in good position, left upper extremity PICC line seems to be in good position, no pneumothorax. On laboratory hemoglobin slightly decreased to 7.3 over 22.4 platelet count of 149 K. chemistries shows a sodium of 142 potassium of 2.8 covered per protocol pending repeat CO2 of 18 BUN 33 creatinine 2.9 GFR of 17 we will continue follow Nephrology recommendations. Glucose of 295 mg/dL, glucose has been persistently above 200, we will add Lantus. phosphorus 1.7 we will cover with protocol. Ammonia 48, sodium lactulose. Plan: Vent management, ABG, chest x-ray , continuous spontaneous breathing trials Pending MRI of the brain Chest x-ray in a.m. Following hemoglobin and transfusing as needed Following GI recs Following cultures, antibiotics Heparin drip for DVTs Dietary to re-evaluate nutrition. Tube feedings. Monitor for bleeding due to heparin drip REVIEW OF SYSTEMS: Unable to obtain due to patient's intubated PHYSICAL EXAM: GENERAL: Critically ill intubated and sedated. HEENT: Sclera non icteric, dry mucosa NECK: Supple, no JVD, trachea midline LUNGS: Clear breath sounds bilaterally. No wheezes HEART: Regular rate and rhythm. Normal S1 and S2, without murmurs ABD: Abdomen soft, nontender. Bowel sounds present EXT: No clubbing cyanosis or edema, history of right BKA NEURO: Intubated and sedated Vital Signs (last 8hr) Date Time Temp Pulse Resp B/P (MAP) Pulse Ox O2 Delivery O2 Flow Rate FiO2 02/01/25 11:48 89 30 02/01/25 09:15 30 02/01/25 09:14 89 30 02/01/25 08:45 86 23 105/58 (74) 100 30 02/01/25 08:30 81 22 101/51 (68) 100 30 02/01/25 08:15 82 24 99/53 (68) 100 30 02/01/25 08:00 97.2 02/01/25 08:00 87 23 105/55 (72) 100 30 02/01/25 08:00 100 CPAP+ 30 30 Ventilator+ 02/01/25 07:45 92 23 105/57 (73) 99 30 02/01/25 07:30 88 20 98/54 (69) 100 30 02/01/25 07:15 97.3 89 23 101/51 (68) 100 30 02/01/25 07:00 90 24 106/64 (78) 99 30 LABS: Hematology Labs: Test 02/01/25 04:50 Range/Units White Blood Count 8.5 4.8-10.8 K/uL Red Blood Count 2.47 L 4.00-5.50 MIL/uL Hemoglobin 7.3 L 12.0-16.0 g/dL Hematocrit 22.4 L 36-48 % Mean Corpuscular Volume 90.7 79-99 fL Mean Corpuscular Hemoglobin 29.6 27.0-33.0 pg Mean Corpuscular Hemoglobin Concent 32.6 32.0-36.0 g/dL Red Cell Distribution Width 19.2 H 11.0-15.5 % Platelet Count 149 130-400 K/uL Mean Platelet Volume 11.6 H 7.5-10.5 fL Immature Granulocyte % (Auto) 0.7 0-1 % Neutrophils (%) (Auto) 80.0 H 40.0-77.0 % Lymphocytes (%) (Auto) 13.0 L 21.0-51.0 % Monocytes (%) (Auto) 3.3 3.0-13.0 % Eosinophils (%) (Auto) 2.5 0.0-8.0 % Basophils (%) (Auto) 0.5 0.0-5.0 % Neutrophils # (Auto) 6.8 1.8-7.7 K/uL Lymphocytes # (Auto) 1.1 1.0-4.8 K/uL Monocytes # (Auto) 0.3 0.1-1.0 K/uL Eosinophils # (Auto) 0.21 0.00-0.70 K/uL Basophils # (Auto) 0.04 0.00-0.20 K/uL Absolute Immature Granulocyte (auto 0.06 0-1 K/uL Nucleated Red Blood Cells 1.1 H 0.0-0.19 % Chemistry Labs: Test 02/01/25 13:08 02/01/25 11:36 02/01/25 04:50 01/31/25 12:38 Range/Units Sodium Level 143 136-145 mmol/L Potassium Level 3.0 *L 3.5-5.1 mmol/L Chloride Level 109 101-111 mmol/L Carbon Dioxide Level 18 L 21-32 mmol/L Blood Urea Nitrogen 34 H 7-18 mg/dL Creatinine 2.9 H 0.5-1.0 mg/dL Glomerular Filtration Rate Calc 17 >90 mL/min Random Glucose 245 H 70-105 mg/dL Total Calcium 8.5 8.5-10.1 mg/dL Magnesium Level 1.90 1.80-2.40 mg/dL Whole Blood Glucose 219 H 70-110 MG/DL Phosphorus Level 1.7 L 2.5-4.9 mg/dL Total Bilirubin 0.4 0.2-1.0 mg/dL Aspartate Amino Transf (AST/SGOT) 28 10-37 U/L Alanine Aminotransferase (ALT/SGPT) 9 L 12-78 U/L Alkaline Phosphatase 484 H 50-136 U/L Total Protein 4.4 L 6.0-8.3 g/dL Albumin 0.7 L 3.5-5.0 g/dL Ammonia 48 H 11-32 umol/L Thyroid Stimulating Hormone (TSH) 3.07 # 0.36-3.74 uIU/mL Coagulation Labs: Test 02/01/25 08:10 Range/Units Prothrombin Time 12.9 H 9.6-11.6 SEC Prothromb Time International Ratio 1.24 H 0.85-1.15 Activated Partial Thromboplast Time 54.7 H 26.3-35.5 SEC DIAGNOSTICS / RADIOLOGY RESULTS: [ ] PLAN NEURO: Minimize central acting medications as possible. Fall Precautions. Well lighted room through the day and minimize interruptions through the night to prevent acute delirium. PULMONARY: Supplemental 02 as needed Titrate Fio2 to keep Spo2 > or = 90% DuoNebs and CPT as needed IS hourly while awake for pulmonary hygiene Out of bed to chair as tolerated VAP Bundle Vent management per ABG. CARDIOVASCULAR: Follow hemodynamics. Titrate vasopressor to keep MAP >65 or systolic blood pressure >95mmHg Drips: Heparin drip LINES: Left upper extremity PICC line GI & NUTRITION: Continue nutritional support Aspirations precautions Prokinetic agents and laxatives as needed KIDNEYS & ELECTROLYTES: Strict monitoring of intake and output Daily weights Avoid nephrotoxic agents Monitor electrolytes and replace as needed Goal urine output of 30mL/hr or 0.5mL/kg/hr Urine output: [ ] Fluid Balance: [ ] ENDOCRINE: Maintain blood glucose between 100-180 at all times. Insulin sliding scale for blood glucose management INFECTIOUS DISEASE: Trend temperature. Leonard-culture if febrile. HEMATOLOGY & COAGULATION: Monitor H&H. Keep Hgb > 7 Transfuse 1 unit of PRBC for Hgb < 7 Transfuse 1 pack of platelets of platelets < 20, 000 Watch for any signs and symptoms of bleeding SKIN: Pressure ulcer prevention per facility protocol Rehab: PT/OT Prophylaxis: GI: Protonix 40 mg b.i.d. DVT: on heparin gt for dvt Code Status: Full Resuscitation Disposition: [ ICU Case was discussed and seen with my supervising physician. The above plan was formulated and agreed upon. ATTESTATION BY PHYSICIAN The patient has been seen and evaluated, the case has been discussed with the BRICK CHIMNEY SUPERVISOR , I agree with the clinical findings and plan of care. KARL TORRES MD AGACNP Feb 01, 2025 14:52
[2025-02-01] MEDS: LACTULOSE 20 GM/30 ML UDCUP PO ONE (14:59)
--- NOTE | 2025-02-01 15:11 | HMCIMG ---
EXAM: MR Brain with and without Intravenous Contrast. CLINICAL HISTORY: UNRESPONSIVE WHILE TRYING TO EXTUBATE TECHNIQUE: Multisequence, multiplanar magnetic resonance images acquired of the brain with and without intravenous contrast. CONTRAST: COMPARISON: None provided. FINDINGS: BRAIN: Ill-defined areas of hyperintensities in the subcortical white matter of the right frontal and parietal lobes without diffusion restriction. 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 Age-related cerebral and cerebellar atrophy. Diffuse T2-FLAIR hyperintensities along the periventricular white matter of bilateral fronto-parietal lobes are suggestive of chronic small vessel ischemia. No restricted diffusion to indicate acute infarction. No intracranial haemorrhage. No midline shift or extra-axial fluid collection. No cerebellar tonsillar ectopia. The central arterial and venous flow voids are patent. VENTRICLES: No hydrocephalus. ORBITS: The orbits are normal. Pseudophakic lens in the right orbit. SINUSES AND MASTOIDS: Fluid signal intensity in the bilateral sphenoid sinus. Fluid signal intensity in bilateral mastoid air cells is suggestive of mastoiditis. The rest of the sinuses are clear. BONES: No acute fracture or aggressively appearing osseous lesion. IMPRESSION: 1. 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 2. 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 3. Bilateral sphenoid sinusitis and mastoiditis. /[place]
--- NOTE | 2025-02-01 16:09 | PN ---
[facility] PROGRESS NOTE Date Patient Seen: Feb 01, 2025 Time of Visit: 16:05 Supervising Physician: [ ] Primary Care Physician: NANDO HUYNH Outpatient Specialists: [ ] Inpatient Consults: DR RAMOS, DR HEAD, DR SIMENTAL Assessment: Acute metabolic encephalopathy vs CVA Hemorrhagic shock and septic shock, RESOLVED Acute complicated cystitis - ESBL to urine Acute hypoxemic respiratory failure (intubated) Deep vein thrombosis in the right subclavian and axillary veins and Right basilic vein thrombosis. UGIB with hematemesis Acute on chronic anemia 2nd to above Type II diabetes mellitus with hyperglycemia Dysphagia with G-tube Acute on chronic kidney disease Unstageable wound on sacrum Right BKA INTERVAL HISTORY: Chart reviewed including all laboratory and imaging results. Continues intubated off sedation x4 days. GCS of 6. Withdrawals to pain bilateral pupils 3. Sluggish. Gag reflex intact. Hemodynamically stable. Off pressors. Continues on heparin drip. No major overnight events reported. Pending brain MRI. Chest x-ray with left lower lobe infiltrates ET tube in good position, left upper extremity PICC line seems to be in good position, no pneumothorax. On laboratory hemoglobin slightly decreased to 7.3 over 22.4 platelet count of 149 K. chemistries shows a sodium of 142 potassium of 2.8 covered per protocol pending repeat CO2 of 18 BUN 33 creatinine 2.9 GFR of 17 we will continue follow Nephrology recommendations. Glucose of 295 mg/dL, glucose has been persistently above 200, we will add Lantus. phosphorus 1.7 we will cover with protocol. Ammonia 48, sodium lactulose. Plan: Vent management, ABG, chest x-ray , continuous spontaneous breathing trials Pending MRI of the brain Chest x-ray in a.m. Following hemoglobin and transfusing as needed Following GI recs Following cultures, antibiotics Heparin drip for DVTs Dietary to re-evaluate nutrition. Tube feedings. Monitor for bleeding due to heparin drip REVIEW OF SYSTEMS: Unable to obtain due to patient's intubated PHYSICAL EXAM: GENERAL: Critically ill intubated and sedated. HEENT: Sclera non icteric, dry mucosa NECK: Supple, no JVD, trachea midline LUNGS: Clear breath sounds bilaterally. No wheezes HEART: Regular rate and rhythm. Normal S1 and S2, without murmurs ABD: Abdomen soft, nontender. Bowel sounds present EXT: No clubbing cyanosis or edema, history of right BKA NEURO: Intubated and sedated Vital Signs (last 8hr) Date Time Temp Pulse Resp B/P (MAP) Pulse Ox O2 Delivery O2 Flow Rate FiO2 02/01/25 15:51 98 CPAP+ 30 30 Ventilator+ 02/01/25 14:49 91 30 02/01/25 13:30 30 02/01/25 12:00 97.3 02/01/25 12:00 99 CPAP+ 30 30 Ventilator+ 02/01/25 11:48 89 30 02/01/25 09:15 30 02/01/25 09:14 89 30 02/01/25 08:45 86 23 105/58 (74) 100 30 02/01/25 08:30 81 22 101/51 (68) 100 30 02/01/25 08:15 82 24 99/53 (68) 100 30 LABS: Hematology Labs: Test 02/01/25 04:50 Range/Units White Blood Count 8.5 4.8-10.8 K/uL Red Blood Count 2.47 L 4.00-5.50 MIL/uL Hemoglobin 7.3 L 12.0-16.0 g/dL Hematocrit 22.4 L 36-48 % Mean Corpuscular Volume 90.7 79-99 fL Mean Corpuscular Hemoglobin 29.6 27.0-33.0 pg Mean Corpuscular Hemoglobin Concent 32.6 32.0-36.0 g/dL Red Cell Distribution Width 19.2 H 11.0-15.5 % Platelet Count 149 130-400 K/uL Mean Platelet Volume 11.6 H 7.5-10.5 fL Immature Granulocyte % (Auto) 0.7 0-1 % Neutrophils (%) (Auto) 80.0 H 40.0-77.0 % Lymphocytes (%) (Auto) 13.0 L 21.0-51.0 % Monocytes (%) (Auto) 3.3 3.0-13.0 % Eosinophils (%) (Auto) 2.5 0.0-8.0 % Basophils (%) (Auto) 0.5 0.0-5.0 % Neutrophils # (Auto) 6.8 1.8-7.7 K/uL Lymphocytes # (Auto) 1.1 1.0-4.8 K/uL Monocytes # (Auto) 0.3 0.1-1.0 K/uL Eosinophils # (Auto) 0.21 0.00-0.70 K/uL Basophils # (Auto) 0.04 0.00-0.20 K/uL Absolute Immature Granulocyte (auto 0.06 0-1 K/uL Nucleated Red Blood Cells 1.1 H 0.0-0.19 % Chemistry Labs: Test 02/01/25 13:08 02/01/25 11:36 02/01/25 04:50 01/31/25 12:38 Range/Units Sodium Level 143 136-145 mmol/L Potassium Level 3.0 *L 3.5-5.1 mmol/L Chloride Level 109 101-111 mmol/L Carbon Dioxide Level 18 L 21-32 mmol/L Blood Urea Nitrogen 34 H 7-18 mg/dL Creatinine 2.9 H 0.5-1.0 mg/dL Glomerular Filtration Rate Calc 17 >90 mL/min Random Glucose 245 H 70-105 mg/dL Total Calcium 8.5 8.5-10.1 mg/dL Magnesium Level 1.90 1.80-2.40 mg/dL Whole Blood Glucose 219 H 70-110 MG/DL Phosphorus Level 1.7 L 2.5-4.9 mg/dL Total Bilirubin 0.4 0.2-1.0 mg/dL Aspartate Amino Transf (AST/SGOT) 28 10-37 U/L Alanine Aminotransferase (ALT/SGPT) 9 L 12-78 U/L Alkaline Phosphatase 484 H 50-136 U/L Total Protein 4.4 L 6.0-8.3 g/dL Albumin 0.7 L 3.5-5.0 g/dL Ammonia 48 H 11-32 umol/L Thyroid Stimulating Hormone (TSH) 3.07 # 0.36-3.74 uIU/mL Coagulation Labs: Test 02/01/25 08:10 Range/Units Prothrombin Time 12.9 H 9.6-11.6 SEC Prothromb Time International Ratio 1.24 H 0.85-1.15 Activated Partial Thromboplast Time 54.7 H 26.3-35.5 SEC DIAGNOSTICS / RADIOLOGY RESULTS: [address] [address] IMAGING REPORT Signed PATIENT: JUSTIN KLINE MR#: [id number] : 1955 SEX: F AGE: 70 LOCATION: 2CH ORDER 34 STATUS: ADM IN REPORT#: [id number] SERVICE 31 REASON: UNRESPONSIVE ORDERING PHYSICIAN: RERE BLAIR PAC PROCEDURE: BRAIN WO - MR BRAIN WO CON EXAM: MR Brain with and without Intravenous Contrast. CLINICAL HISTORY: UNRESPONSIVE WHILE TRYING TO EXTUBATE TECHNIQUE: Multisequence, multiplanar magnetic resonance images acquired of the brain with and without intravenous contrast. CONTRAST: COMPARISON: None provided. FINDINGS: BRAIN: Ill-defined areas of hyperintensities in the subcortical white matter of the right frontal and parietal lobes without diffusion restriction. 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 Age-related cerebral and cerebellar atrophy. Diffuse T2-FLAIR hyperintensities along the periventricular white matter of bilateral fronto-parietal lobes are suggestive of chronic small vessel ischemia. No restricted diffusion to indicate acute infarction. No intracranial haemorrhage. No midline shift or extra-axial fluid collection. No cerebellar tonsillar ectopia. The central arterial and venous flow voids are patent. VENTRICLES: No hydrocephalus. ORBITS: The orbits are normal. Pseudophakic lens in the right orbit. SINUSES AND MASTOIDS: Fluid signal intensity in the bilateral sphenoid sinus. Fluid signal intensity in bilateral mastoid air cells is suggestive of mastoiditis. The rest of the sinuses are clear. BONES: No acute fracture or aggressively appearing osseous lesion. IMPRESSION: 1. 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 2. 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 3. Bilateral sphenoid sinusitis and mastoiditis. /[place] DICTATED BY: SELIN BURNS MD DATE: 02/01/251609 ELECTRONICALLY SIGNED BY: SELIN BURNS MD DATE: 02/01/251609 PLAN NEURO: Minimize central acting medications as possible. Fall Precautions. Well lighted room through the day and minimize interruptions through the night to prevent acute delirium. 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 PULMONARY: Supplemental 02 as needed Titrate Fio2 to keep Spo2 > or = 90% DuoNebs and CPT as needed IS hourly while awake for pulmonary hygiene Out of bed to chair as tolerated VAP Bundle Vent management per ABG. CARDIOVASCULAR: Follow hemodynamics. Titrate vasopressor to keep MAP >65 or systolic blood pressure >95mmHg Drips: Heparin drip LINES: Left upper extremity PICC line GI & NUTRITION: Continue nutritional support Aspirations precautions Prokinetic agents and laxatives as needed KIDNEYS & ELECTROLYTES: Strict monitoring of intake and output Daily weights Avoid nephrotoxic agents Monitor electrolytes and replace as needed Goal urine output of 30mL/hr or 0.5mL/kg/hr Urine output: [ ] Fluid Balance: [ ] ENDOCRINE: Maintain blood glucose between 100-180 at all times. Insulin sliding scale for blood glucose management INFECTIOUS DISEASE: Trend temperature. Leonard-culture if febrile. HEMATOLOGY & COAGULATION: Monitor H&H. Keep Hgb > 7 Transfuse 1 unit of PRBC for Hgb < 7 Transfuse 1 pack of platelets of platelets < 20, 000 Watch for any signs and symptoms of bleeding SKIN: Pressure ulcer prevention per facility protocol Rehab: PT/OT Prophylaxis: GI: Protonix 40 mg b.i.d. DVT: on heparin gt for dvt Code Status: Full Resuscitation Disposition: [ ICU Case was discussed and seen with my supervising physician. The above plan was formulated and agreed upon. ATTESTATION BY PHYSICIAN I have seen and examined the patient. I reviewed the documentation, medical decision making, and treatment plan as noted by the resident provider above. I agree with the findings and plan of care. Nick Monsalve MD, LAKSHMI MD Feb 01, 2025 16:09
[2025-02-01] MEDS ORDERED: SODIUM BICARBONATE 650 MG TAB PO SCH (21:00)
[2025-02-02] VITALS (101 sets, daily range): BP systolic 79–144; BP diastolic 26–108; PULSE 81–126; RESP 16–40; TEMP 97.4–100; O2SAT 98–100
[2025-02-02 04:25] LABS: ABG BASE EXCESS -8.3 mmol/L (-2.0-3.0); ABG HCO3 12.9 mmol/L (21.0-28.0); ABG OXYGEN SATURATION 96.7 % (94.0-98.0); ABG PCO2 19 mmHg (32-45); ABG PH 7.448 (7.350-7.450); DEVICE COMMENT LR,RN ALEX; PO2, ARTERIAL BG 81.7 mmHg (83.0-108.0); TEMPERATURE, CELSIUS BG 37.0 CELSIUS (35.5-37.0); VENT MODE, BG AC (ROOM AIR)
[2025-02-02 05:18] LABS: IMMATURE GRANULOCYTE ABSOLUTE 0.04 K/uL (0-1); NUCLEATED RED BLOOD CELLS 3.4 % (0.0-0.19); PLATELET COUNT (AUTO) 166 K/uL (130-400); RED BLOOD CELL COUNT(AUTO) 2.79 MIL/uL (4.00-5.50); RED CELL DISTRIBUTION WIDTH 19.4 % (11.0-15.5); WHITE BLOOD COUNT (AUTO) 9.6 K/uL (4.8-10.8)
[2025-02-02] MEDS: LACTATED RINGERS 1000ML IV ONE (05:42)
[2025-02-02] MEDS: SODIUM BICARB 8.4% 50ML SYRING 150 MEQ in DEXTROSE 5%-WATER 1,000 ML IVP SCH (05:45)
[2025-02-02 05:49] LABS: ASPARTATE AMINOTRANSFERASE 37.0 U/L (10-37); CREATININE 3.1 mg/dL (0.5-1.0); GLOMERULAR FILTR. RATE CALC 16.0 mL/min (>90); GLUCOSE,RANDOM 248.0 mg/dL (70-105); PHOSPHORUS 2.2 mg/dL (2.5-4.9); SODIUM SERUM 140.0 mmol/L (136-145); TOTAL PROTEIN, SERUM 5.1 g/dL (6.0-8.3); UREA NITROGEN, BLOOD 35.0 mg/dL (7-18)
--- NOTE | 2025-02-02 06:11 | HMCIMG ---
EXAM: CR Chest, 1 View. CLINICAL HISTORY: pp COMPARISON: Jan 31, 2025. FINDINGS: ETT tip 2.9 cm above arminda. Left PICC tip in SVC. LUNGS: Left perihilar and left basilar airspace disease, slightly more apparent on today's study. Improved left lung aeration. Small left pleural effusion. MEDIASTINUM: Cardiomegaly. BONES: No aggressive appearing osseous lesion seen. IMPRESSION: Left perihilar and left basilar airspace disease, slightly more apparent on today's study. Improved left lung aeration. Small left pleural effusion. /[place]
--- NOTE | 2025-02-02 07:08 | HMCIMG ---
EXAM: CR Abdomen, 2 view. CLINICAL HISTORY: Pain. COMPARISON: None provided. FINDINGS: Nonobstructed nonspecific bowel gas pattern. No free air is evident. No abnormal calcification. No aggressive appearing osseous lesion. IMPRESSION: 1. No acute process. /[place]
[2025-02-02] MEDS: SODIUM BICARB 50MEQ 50ML VIAL IV ONE ×2 (08:58)
--- NOTE | 2025-02-02 09:28 | PN ---
[facility] PROGRESS NOTE Date Patient Seen: Feb 02, 2025 Time of Visit: 09:27 Supervising Physician: Isidro Jaam MD Primary Care Physician: NANDO HUYNH Outpatient Specialists: [ ] Inpatient Consults: DR RAMOS, DR HEAD, DR SIMENTAL Assessment: Acute metabolic encephalopathy vs CVA Hemorrhagic shock and septic shock, RESOLVED Acute complicated cystitis - ESBL to urine Acute hypoxemic respiratory failure (intubated) Intractable metabolic acidosis Deep vein thrombosis in the right subclavian and axillary veins and Right basilic vein thrombosis. 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 on MRI Brain 02/02/25 Right BKA INTERVAL HISTORY: This morning patient is hypotensive as placed on Levophed at 0.05 mcg/kg per minute. Lactic acid trended up. Metabolic acidosis did not respond to sodium bicarb drip which was ordered earlier this morning. On CBC hemoglobin is stable 8.3/24.5 neutrophils of 90.5. Chemistries shows a CO2 of 13 BUN of 35 creatinine of 3.1 GFR of 16 glucose of 248 mg/dL lactic acid 5.8 liver enzymes trended up albumin at 0.8. Three amps of sodium bicarb administered and blood pressure improved. She was also given 100 mL of albumin 25%. Placed back on assist-control volume control. We will stop sodium bicarb drip and give pushes of sodium bicarb instead. We will continue to monitor BMP q 6 hrs. We will follow neprhology recommendations. As per RN pt with Poor urine output. 150ml in the last 24 hours. Pt was pancultured. Placed pt back on IV antibioics with meropenem and Zyvox. we added preeors to improve MAP above 65 and held off on IVF due to hypervolemic state and oliguria. KUB done yesterday unremarkable. Chest XR w/ ET tube in good position, Pulmonary vascular congestion noted and Bilateral pleura effusions noted. Cardiomegaly. 2D echo done pending reading. I had a discussion with pt's who was at the bedside at the time of my visit. Goal of this conversation was to discuss goals of care. I discussed regarding what advanced directives in detail and what advanced care planning entails. We also discussed CODE STATUS. I informed the patient's that in the case of cardiopulmonary demise, resuscitation efforts including chest compressions and intubations do not lead to ideal postresuscitative outcomes. We discussed patient's particular disease processes and how this could be potentially impacting the patient's outcome in the event of a cardiopulmonary arrest. All questions related to resuscitation, CODE STATUS, advanced directives were answered in detail. Patient's wishes for pt to not receive resuscitated measures such as CPR. We will change CODE STATUS to DO NOT RESUSCITATE. Plan: Vent management, ABG, chest x-ray , continuous spontaneous breathing trials Pending MRI of the brain sodium bicarb pushes q 6 hrs 1 amp IV Levophed to maintain map above 65 Chest x-ray in a.m. Following hemoglobin and transfusing as needed Following GI recs Following cultures, antibiotics Heparin drip for DVTs Dietary to re-evaluate nutrition. Tube feedings. Monitor for bleeding due to heparin drip continue IV abx Follow nephrology recommendation REVIEW OF SYSTEMS: Unable to obtain due to patient's intubated PHYSICAL EXAM: GENERAL: Critically ill intubated and sedated. HEENT: Sclera non icteric, dry mucosa NECK: Supple, no JVD, trachea midline LUNGS: Clear breath sounds bilaterally. No wheezes HEART: Regular rate and rhythm. Normal S1 and S2, without murmurs ABD: Abdomen soft, nontender. Bowel sounds present EXT: No clubbing cyanosis or edema, history of right BKA NEURO: Intubated and sedated Vital Signs (last 8hr) Date Time Temp Pulse Resp B/P (MAP) Pulse Ox O2 Delivery O2 Flow Rate FiO2 02/02/25 08:48 109 30 02/02/25 06:45 117 34 112/46 (68) 99 02/02/25 06:30 111 34 118/58 (78) 100 02/02/25 06:15 121 34 116/58 (77) 100 02/02/25 06:14 118 30 02/02/25 06:00 118 36 114/65 (81) 100 30 02/02/25 05:45 119 33 107/59 (75) 99 02/02/25 05:30 119 33 109/55 (73) 99 02/02/25 05:15 122 33 110/62 (78) 100 02/02/25 05:04 30 02/02/25 05:00 122 34 111/58 (75) 100 30 02/02/25 04:45 123 33 112/62 (79) 100 02/02/25 04:30 122 33 126/62 (83) 99 02/02/25 04:15 121 33 117/65 (82) 99 02/02/25 04:00 98.4 Ventilator 30 02/02/25 04:00 98.4 116 33 123/92 (102) 99 30 02/02/25 04:00 98 Ventilator+ 30 30 02/02/25 03:52 81 30 02/02/25 03:45 119 34 110/33 (58) 99 02/02/25 03:30 115 35 97/43 (61) 99 02/02/25 03:15 115 32 94/69 (77) 100 02/02/25 03:00 116 34 95/64 (74) 99 30 02/02/25 02:45 115 35 102/44 (63) 99 02/02/25 02:15 114 33 98/67 (77) 99 02/02/25 02:00 113 32 97/52 (67) 99 30 02/02/25 01:45 114 34 90/53 (65) 99 02/02/25 01:30 113 33 99/56 (70) 99 LABS: Hematology Labs: Test 02/02/25 05:05 Range/Units White Blood Count 9.6 4.8-10.8 K/uL Red Blood Count 2.79 L 4.00-5.50 MIL/uL Hemoglobin 8.3 L 12.0-16.0 g/dL Hematocrit 24.5 L 36-48 % Mean Corpuscular Volume 87.8 79-99 fL Mean Corpuscular Hemoglobin 29.7 27.0-33.0 pg Mean Corpuscular Hemoglobin Concent 33.9 32.0-36.0 g/dL Red Cell Distribution Width 19.4 H 11.0-15.5 % Platelet Count 166 130-400 K/uL Mean Platelet Volume 11.1 H 7.5-10.5 fL Immature Granulocyte % (Auto) 0.4 0-1 % Neutrophils (%) (Auto) 90.5 H 40.0-77.0 % Lymphocytes (%) (Auto) 5.7 L 21.0-51.0 % Monocytes (%) (Auto) 2.9 L 3.0-13.0 % Eosinophils (%) (Auto) 0.4 0.0-8.0 % Basophils (%) (Auto) 0.1 0.0-5.0 % Neutrophils # (Auto) 8.7 H 1.8-7.7 K/uL Lymphocytes # (Auto) 0.6 L 1.0-4.8 K/uL Monocytes # (Auto) 0.3 0.1-1.0 K/uL Eosinophils # (Auto) 0.04 0.00-0.70 K/uL Basophils # (Auto) 0.01 0.00-0.20 K/uL Absolute Immature Granulocyte (auto 0.04 0-1 K/uL Nucleated Red Blood Cells 3.4 H 0.0-0.19 % White Cell Morphology Comment See comments Chemistry Labs: Test 02/02/25 08:10 02/02/25 05:15 02/02/25 05:05 01/31/25 12:38 Range/Units Lactic Acid Level 5.8 H 0.8-2.5 mmol/L Whole Blood Glucose 209 H 70-110 MG/DL Sodium Level 140 136-145 mmol/L Potassium Level 4.4 3.5-5.1 mmol/L Chloride Level 109 101-111 mmol/L Carbon Dioxide Level 13 L 21-32 mmol/L Blood Urea Nitrogen 35 H 7-18 mg/dL Creatinine 3.1 H 0.5-1.0 mg/dL Glomerular Filtration Rate Calc 16 >90 mL/min Random Glucose 248 H 70-105 mg/dL Total Calcium 8.8 8.5-10.1 mg/dL Phosphorus Level 2.2 L 2.5-4.9 mg/dL Magnesium Level 1.90 1.80-2.40 mg/dL Total Bilirubin 0.3 0.2-1.0 mg/dL Aspartate Amino Transf (AST/SGOT) 37 10-37 U/L Alanine Aminotransferase (ALT/SGPT) 11 L 12-78 U/L Alkaline Phosphatase 779 *H 50-136 U/L Ammonia 106 H 11-32 umol/L Total Protein 5.1 L 6.0-8.3 g/dL Albumin 0.8 L 3.5-5.0 g/dL Thyroid Stimulating Hormone (TSH) 3.07 # 0.36-3.74 uIU/mL Coagulation Labs: Test 02/02/25 08:10 02/01/25 08:10 Range/Units Activated Partial Thromboplast Time 47.6 H 26.3-35.5 SEC Prothrombin Time 12.9 H 9.6-11.6 SEC Prothromb Time International Ratio 1.24 H 0.85-1.15 DIAGNOSTICS / RADIOLOGY RESULTS: [ ] [facility] [address] [place] [address] IMAGING REPORT Signed PATIENT: JUSTIN KLINE MR#: [id number] : 1955 SEX: F AGE: 70 LOCATION: 2CH ORDER 3 STATUS: ADM IN REPORT#: [id number] SERVICE 2 REASON: intubated and resp failure ORDERING PHYSICIAN: KARL RODRIGUEZ PROCEDURE: CXR1VW - CHEST 1VW EXAM: CR Chest, 2 View. CLINICAL HISTORY: intubated and resp failure COMPARISON: Yesterday FINDINGS: LUNGS: Endotracheal tube adequately positioned below arminda. Pulmonary vascular congestion. PLEURAL SPACES: Bilateral pleural effusions. MEDIASTINUM: Cardiomegaly. BONES: No acute osseous abnormality. IMPRESSION: 1. Endotracheal tube adequately positioned below arminda. 2. Pulmonary vascular congestion. 3. Bilateral pleural effusions. 4. Cardiomegaly. /[place] DICTATED BY: KIMBERLEE FABIAN MD DATE: 02/02/251102 ELECTRONICALLY SIGNED BY: KIMBERLEE FABIAN MD DATE: 02/02/251102 PLAN NEURO: Minimize central acting medications as possible. Fall Precautions. Well lighted room through the day and minimize interruptions through the night to prevent acute delirium. 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 PULMONARY: Supplemental 02 as needed Titrate Fio2 to keep Spo2 > or = 90% DuoNebs and CPT as needed IS hourly while awake for pulmonary hygiene Out of bed to chair as tolerated VAP Bundle Vent management per ABG. CARDIOVASCULAR: Follow hemodynamics. Titrate vasopressor to keep MAP >65 or systolic blood pressure >95mmHg Drips: Heparin drip levophed LINES: Left upper extremity PICC line GI & NUTRITION: Continue nutritional support Aspirations precautions Prokinetic agents and laxatives as needed KIDNEYS & ELECTROLYTES: Strict monitoring of intake and output Daily weights Avoid nephrotoxic agents Monitor electrolytes and replace as needed Goal urine output of 30mL/hr or 0.5mL/kg/hr Urine output: [ ] Fluid Balance: [ ] ENDOCRINE: Maintain blood glucose between 100-180 at all times. Insulin sliding scale for blood glucose management INFECTIOUS DISEASE: Trend temperature. Leonard-culture if febrile. HEMATOLOGY & COAGULATION: Monitor H&H. Keep Hgb > 7 Transfuse 1 unit of PRBC for Hgb < 7 Transfuse 1 pack of platelets of platelets < 20, 000 Watch for any signs and symptoms of bleeding SKIN: Pressure ulcer prevention per facility protocol Rehab: PT/OT Prophylaxis: GI: Protonix 40 mg b.i.d. DVT: on heparin gt for dvt Code Status: Full Resuscitation Disposition: [ ICU Total critical care time: 45 minutes Case was discussed and seen with my supervising physician. The above plan was formulated and agreed upon. ATTESTATION BY PHYSICIAN I attest that I reviewed and discussed the case with the Physician Health Technician as well as agree with the Physician Health Technician's findings, plans of care, and documentation above. Isidro Bailey MD, [facility] Feb 02, 2025 09:27 ISIDRO BAILEY MD Feb 03, 2025 07:31
[2025-02-02] MEDS ORDERED: MEROPENEM 1GM 1 GM VIAL IVPB SCH (09:30)
[2025-02-02] MEDS ORDERED: PHARMACY COMMUNICATION MISC SCH (09:30)
--- NOTE | 2025-02-02 10:03 | HMCIMG ---
EXAM: CR Chest, 2 View. CLINICAL HISTORY: intubated and resp failure COMPARISON: Yesterday FINDINGS: LUNGS: Endotracheal tube adequately positioned below arminda. Pulmonary vascular congestion. PLEURAL SPACES: Bilateral pleural effusions. MEDIASTINUM: Cardiomegaly. BONES: No acute osseous abnormality. IMPRESSION: 1. Endotracheal tube adequately positioned below arminda. 2. Pulmonary vascular congestion. 3. Bilateral pleural effusions. 4. Cardiomegaly. /[place]
[2025-02-02 10:09] LABS: ABG OXYGEN SATURATION 73.3 % (94.0-98.0); BASE EXCESS,VENOUS BLOOD GAS -6.4 (-2.0-3.0); DEVICE COMMENT VEN LEO; HCO3,VENOUS BLOOD GAS 15.9 (22.0-29.0); PCO2,VENOUS BLOOD GAS 22 (38-54); PH,VENOUS BLOOD GAS 7.474 (7.320-7.430); PO2,VENOUS BLOOD GAS 35.3 mmHg (23.0-48.0); TEMPERATURE, CELSIUS BG 37.0 CELSIUS (35.5-37.0); VENT MODE, BG AC-VC (ROOM AIR)
[2025-02-02 10:17] LABS: CREATININE 3.1 mg/dL (0.5-1.0); GLOMERULAR FILTR. RATE CALC 16.0 mL/min (>90); GLUCOSE,RANDOM 189.0 mg/dL (70-105); SODIUM SERUM 144.0 mmol/L (136-145); UREA NITROGEN, BLOOD 34.0 mg/dL (7-18)
[2025-02-02] MEDS: LINEZOLID 600 MG/ISO-OSM 300 ML IV SCH (10:31)
[2025-02-02] MEDS: ALBUMIN (HUMAN) 25% 50 ML IV ONE (10:31)
[2025-02-02 10:49] LABS: APPEARANCE,URINE TURBID (CLEAR); GLUCOSE, URINE (UA) NEGATIVE (NEGATIVE); LEUKOCYTE ESTERASE ,URINE 500 Leu/uL (NEGATIVE); NITRATE,URINE NEGATIVE (NEGATIVE); OCCULT BLOOD,URINE MODERATE (NEGATIVE)
[2025-02-02 10:50] LABS: ADD UA MICROSCOPIC YES
--- NOTE | 2025-02-02 10:52 | PN ---
NEPHROLOGY PROGRESS NOTE Date/Time Patient Seen: Feb 02, 2025 SUBJECTIVE: This is a 70-year-old female with past medical history of diabetes mellitus type 2, hypertension, anemia, history of CVA, history of right below-knee amputation, chronic kidney disease with prior history of dialysis She presented to the hospital secondary to hematemesis. Patient is currently intubated and sedated. Most information was obtained from chart review. bedside nurse, and family due to patient's condition She has a history of peptic ulcer disease. She continues to require vasopressors to maintain blood pressure. Continues to be intubated, currently on SBT She was noted to have elevated BUN/creatinine. Continues on antibiotics We are consulted for renal failure Renal function remains elevated Electrolytes are stable Iron panel was noted,S/p PRBC , continues on weekly Epogen Imaging studies were noted Neurology was consulted due to deteriorating neurological status CT head showed Ill-defined hypodensity with loss of rodriguez-white matter interface in the right frontal and high parietal lobes concerning for possible infarct. MRI results noted Code status has been changed to DNR She was seen in the ICU, intubated Family at the bedside Condition is critical and guarded REVIEW OF SYSTEMS: Difficult to obtain given status of the patient who remains intubated mechanically ventilated Vital Signs (last 8hr) Date Time Temp Pulse Resp B/P (MAP) Pulse Ox O2 Delivery O2 Flow Rate FiO2 02/02/25 08:48 109 30 02/02/25 06:45 117 34 112/46 (68) 99 02/02/25 06:30 111 34 118/58 (78) 100 02/02/25 06:15 121 34 116/58 (77) 100 02/02/25 06:14 118 30 02/02/25 06:00 118 36 114/65 (81) 100 30 02/02/25 05:45 119 33 107/59 (75) 99 02/02/25 05:30 119 33 109/55 (73) 99 02/02/25 05:15 122 33 110/62 (78) 100 02/02/25 05:04 30 02/02/25 05:00 122 34 111/58 (75) 100 30 02/02/25 04:45 123 33 112/62 (79) 100 02/02/25 04:30 122 33 126/62 (83) 99 02/02/25 04:15 121 33 117/65 (82) 99 02/02/25 04:00 98.4 Ventilator 30 02/02/25 04:00 98.4 116 33 123/92 (102) 99 30 02/02/25 04:00 98 Ventilator+ 30 30 02/02/25 03:52 81 30 02/02/25 03:45 119 34 110/33 (58) 99 02/02/25 03:30 115 35 97/43 (61) 99 02/02/25 03:15 115 32 94/69 (77) 100 02/02/25 03:00 116 34 95/64 (74) 99 30 PHYSICAL EXAM: General: acutely ill, sedated, intubated, and mechanically ventilated HEENT: head is atraumatic, pupils equal and reactive, ET tube in place Neck: supple, no masses, no lymphadenopathy, no thyromegaly, no JVD Lungs: decreased breath sounds bilaterally, symmetrical chest movement Cardio: regular rate, S1 and S2 normal, no rub or gallop Abdomen: soft, non tender, no distension, no organomegaly Extremities: trace edema bilateral lower extremities, no cyanosis or clubbing Skin: no rashes or suspicious lesions Neuro: sedated Current Medications Medications (Trade) Dose Ordered Sig/Arik Route Start Time Stop Time Status Last Admin Dose Admin Albumin Human 50 ml @ 0 mls/hr Q8H6 IV 01/24/25 14:00 01/24/25 22:00 Artificial Tears (Artificial Tears) 1 DROP OR AD Q8H OU 01/23/25 19:30 02/22/25 19:29 01/24/25 12:13 1 DROP Cefepime HCl (MAXipime 2 gm vial) 2 gm Q24H IVPB 01/23/25 12:00 02/02/25 11:59 01/24/25 12:13 2 GM Ceftriaxone Sodium (ROCEphine 1G INJ) 1 gm Q24H IVPB 01/22/25 12:00 01/22/25 16:25 DC 01/22/25 14:18 1 GM Chlorhexidine Gluconate (Peridex) 15 ml TID MM 01/23/25 21:00 02/06/25 20:59 01/24/25 09:15 15 ML Fentanyl Citrate 100 ml @ 2.5 mls/hr PROTOCOL IV 01/22/25 12:00 01/22/25 11:55 DC Fentanyl Citrate 100 ml @ 2.5 mls/hr PROTOCOL IV 01/22/25 12:00 01/29/25 11:59 01/24/25 06:59 2.5 MLS/HR Insulin Human Regular (humuLIN R 100 UNIT/ML 3ML) INSULIN SLIDING SCAL... ACHS SQ 01/22/25 21:00 02/21/25 20:59 01/23/25 12:20 2 UNIT Levetiracetam (kepPRA 500 MG TABLET) 500 mg BID PO 01/22/25 21:00 01/22/25 22:13 DC Levetiracetam 500 mg/Sodium Chloride 100 ml @ 400 mls/hr Q12H9 IV 01/22/25 22:00 02/21/25 21:59 01/24/25 09:17 400 MLS/HR Levothyroxine Sodium (SYNTHroid VIAL 100MCG) 100 mcg SYN IV 01/23/25 06:30 02/22/25 06:29 01/24/25 05:34 100 MCG Linezolid 300 ml @ 150 mls/hr Q12H IV 01/24/25 08:00 02/03/25 07:59 01/24/25 09:15 150 MLS/HR Metronidazole/ Sodium Chloride 100 ml @ 100 mls/hr Q8H6 IVPB 01/22/25 22:00 02/01/25 21:59 01/24/25 05:34 100 MLS/HR Midazolam HCl 50 ml @ 0 mls/hr PROTOCOL IV 01/22/25 12:00 01/29/25 11:59 01/22/25 20:51 1 MLS/HR Norepinephrine 250 ml @ 0 mls/hr PROTOCOL IV 01/22/25 10:00 01/23/25 09:52 DC 01/22/25 14:24 60 MLS/HR Norepinephrine Bitartrate (Norepineph 16 Mg/250ml NS Premix) per protocol PROTOCOL IV 01/23/25 10:00 02/22/25 09:59 01/23/25 23:50 16 MG Octreotide Acetate 1250 mcg/ Sodium Chloride 250 ml @ 0 mls/hr PROTOCOL IV 01/22/25 12:30 01/22/25 12:17 DC Octreotide Acetate 1250 mcg/ Sodium Chloride 250 ml @ 0 mls/hr PROTOCOL IV 01/22/25 12:30 01/24/25 09:23 DC 01/22/25 12:41 5 MLS/HR Pantoprazole Sodium (PROTonix 40MG INJ) 40 mg BID IVP 01/24/25 21:00 02/23/25 20:59 Pantoprazole Sodium 80 mg/ Sodium Chloride 100 ml @ 10 mls/hr Q10H IV 01/22/25 09:00 01/24/25 09:23 DC 01/24/25 09:17 10 MLS/HR Pharmacy Profile Note (Pharmacy Communication) 1 each ONCE MISC 01/22/25 12:00 01/22/25 11:53 DC Pharmacy Profile Note (Pharmacy Communication) 1 each ONCE MISC 01/22/25 12:00 01/22/25 11:53 DC Pharmacy Profile Note (Pharmacy Communication) 1 each ONCE MISC 01/23/25 13:00 01/23/25 13:09 DC Pharmacy Profile Note (Pharmacy Communication) 1 each ONCE MISC 01/24/25 08:00 01/24/25 07:51 DC Sodium Chloride 1,000 ml @ 150 mls/hr Q6H40M IV 01/22/25 12:00 01/23/25 10:56 DC 01/23/25 02:45 150 MLS/HR Sucralfate (Carafate) 1 gm BID PO 01/23/25 21:00 01/23/25 11:41 DC Sucralfate (Carafate) 1 gm TID PO 01/23/25 14:00 02/22/25 20:59 01/24/25 09:15 1 GM Thiamine HCl 100 mg/Sodium Chloride 50 ml @ 100 mls/hr Q24H IV 01/23/25 14:00 01/25/25 14:29 01/23/25 14:05 100 MLS/HR Vancomycin HCl (Vancomycin 750mg) 750 mg Q24H IVPB 01/23/25 17:00 01/23/25 10:56 DC Vancomycin HCl (Vancomycin Protocol) 1 each AD IV 01/22/25 15:00 01/23/25 10:56 DC LABORATORY: [ ] Hematology Labs: Test 02/02/25 05:05 Range/Units White Blood Count 9.6 4.8-10.8 K/uL Red Blood Count 2.79 L 4.00-5.50 MIL/uL Hemoglobin 8.3 L 12.0-16.0 g/dL Hematocrit 24.5 L 36-48 % Mean Corpuscular Volume 87.8 79-99 fL Mean Corpuscular Hemoglobin 29.7 27.0-33.0 pg Mean Corpuscular Hemoglobin Concent 33.9 32.0-36.0 g/dL Red Cell Distribution Width 19.4 H 11.0-15.5 % Platelet Count 166 130-400 K/uL Mean Platelet Volume 11.1 H 7.5-10.5 fL Immature Granulocyte % (Auto) 0.4 0-1 % Neutrophils (%) (Auto) 90.5 H 40.0-77.0 % Lymphocytes (%) (Auto) 5.7 L 21.0-51.0 % Monocytes (%) (Auto) 2.9 L 3.0-13.0 % Eosinophils (%) (Auto) 0.4 0.0-8.0 % Basophils (%) (Auto) 0.1 0.0-5.0 % Neutrophils # (Auto) 8.7 H 1.8-7.7 K/uL Lymphocytes # (Auto) 0.6 L 1.0-4.8 K/uL Monocytes # (Auto) 0.3 0.1-1.0 K/uL Eosinophils # (Auto) 0.04 0.00-0.70 K/uL Basophils # (Auto) 0.01 0.00-0.20 K/uL Absolute Immature Granulocyte (auto 0.04 0-1 K/uL Nucleated Red Blood Cells 3.4 H 0.0-0.19 % White Cell Morphology Comment See comments Chemistry Labs: Test 02/02/25 09:50 02/02/25 08:10 02/02/25 05:15 02/02/25 05:05 Range/Units Sodium Level 144 136-145 mmol/L Potassium Level 3.9 3.5-5.1 mmol/L Chloride Level 109 101-111 mmol/L Carbon Dioxide Level 19 L 21-32 mmol/L Blood Urea Nitrogen 34 H 7-18 mg/dL Creatinine 3.1 H 0.5-1.0 mg/dL Glomerular Filtration Rate Calc 16 >90 mL/min Random Glucose 189 H 70-105 mg/dL Whole Blood Ketones Quantitative < 0.1 0.0-0.6 mmol/L Total Calcium 8.6 8.5-10.1 mg/dL Lactic Acid Level 5.8 H 0.8-2.5 mmol/L Whole Blood Glucose 209 H 70-110 MG/DL Phosphorus Level 2.2 L 2.5-4.9 mg/dL Magnesium Level 1.90 1.80-2.40 mg/dL Total Bilirubin 0.3 0.2-1.0 mg/dL Aspartate Amino Transf (AST/SGOT) 37 10-37 U/L Alanine Aminotransferase (ALT/SGPT) 11 L 12-78 U/L Alkaline Phosphatase 779 *H 50-136 U/L Ammonia 106 H 11-32 umol/L Total Protein 5.1 L 6.0-8.3 g/dL Albumin 0.8 L 3.5-5.0 g/dL Test 01/31/25 12:38 Range/Units Thyroid Stimulating Hormone (TSH) 3.07 # 0.36-3.74 uIU/mL Coagulation Labs: Test 02/02/25 08:10 02/01/25 08:10 Range/Units Activated Partial Thromboplast Time 47.6 H 26.3-35.5 SEC Prothrombin Time 12.9 H 9.6-11.6 SEC Prothromb Time International Ratio 1.24 H 0.85-1.15 DIAGNOSTICS / RADIOLOGY: [address] [place] [address] IMAGING REPORT Signed PATIENT: JUSTIN KLINE MR#: [id number] : 1955 SEX: F AGE: 70 LOCATION: [facility] ORDER 3 STATUS: ADM IN REPORT#: [id number] SERVICE 09 REASON: intubated and resp failure ORDERING PHYSICIAN: KARL RODRIGUEZ PROCEDURE: CXR1VW - CHEST 1VW EXAM: CR Chest, 2 View. CLINICAL HISTORY: intubated and resp failure COMPARISON: Yesterday FINDINGS: LUNGS: Endotracheal tube adequately positioned below arminda. Pulmonary vascular congestion. PLEURAL SPACES: Bilateral pleural effusions. MEDIASTINUM: Cardiomegaly. BONES: No acute osseous abnormality. IMPRESSION: 1. Endotracheal tube adequately positioned below arminda. 2. Pulmonary vascular congestion. 3. Bilateral pleural effusions. 4. Cardiomegaly. /[place] DICTATED BY: KIMBERLEE FABIAN MD DATE: 02/02/251102 ELECTRONICALLY SIGNED BY: KIMBERLEE FABIAN MD DATE: 02/02/251102 PATIENT: JUSTIN KLINE MR#: [id number] : 1955 SEX: F AGE: 70 LOCATION: 2[facility] ORDER 38 STATUS: ADM IN REPORT#: [id number] SERVICE 37 REASON: VOMITING ASSESS FOR SBO ORDERING PHYSICIAN: KARL RODRIGUEZ AGAALICIAP PROCEDURE: ABD 1VW - ABD 1VW EXAM: CR Abdomen, 2 view. CLINICAL HISTORY: Pain. COMPARISON: None provided. FINDINGS: Nonobstructed nonspecific bowel gas pattern. No free air is evident. No abnormal calcification. No aggressive appearing osseous lesion. IMPRESSION: 1. No acute process. /[place] DICTATED BY: GOVIND HAYES MD DATE: 02/02/25806 ELECTRONICALLY SIGNED BY: GOVIND HAYES MD DATE: 02/02/25806 PATIENT: JUSTIN KLINE MR#: [id number] : 1955 SEX: F AGE: 70 LOCATION: 2[facility] ORDER 34 STATUS: ADM IN REPORT#: [id number] SERVICE 31 REASON: UNRESPONSIVE ORDERING PHYSICIAN: RERE BLAIR PAC PROCEDURE: BRAIN WO - MR BRAIN WO CON EXAM: MR Brain with and without Intravenous Contrast. CLINICAL HISTORY: UNRESPONSIVE WHILE TRYING TO EXTUBATE TECHNIQUE: Multisequence, multiplanar magnetic resonance images acquired of the brain with and without intravenous contrast. CONTRAST: COMPARISON: None provided. FINDINGS: BRAIN: Ill-defined areas of hyperintensities in the subcortical white matter of the right frontal and parietal lobes without diffusion restriction. 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 Age-related cerebral and cerebellar atrophy. Diffuse T2-FLAIR hyperintensities along the periventricular white matter of bilateral fronto-parietal lobes are suggestive of chronic small vessel ischemia. No restricted diffusion to indicate acute infarction. No intracranial haemorrhage. No midline shift or extra-axial fluid collection. No cerebellar tonsillar ectopia. The central arterial and venous flow voids are patent. VENTRICLES: No hydrocephalus. ORBITS: The orbits are normal. Pseudophakic lens in the right orbit. SINUSES AND MASTOIDS: Fluid signal intensity in the bilateral sphenoid sinus. Fluid signal intensity in bilateral mastoid air cells is suggestive of mastoiditis. The rest of the sinuses are clear. BONES: No acute fracture or aggressively appearing osseous lesion. IMPRESSION: 1. 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 2. 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 3. Bilateral sphenoid sinusitis and mastoiditis. /[place] DICTATED BY: SELIN BURNS MD DATE: 02/01/251609 ELECTRONICALLY SIGNED BY: SELIN BURNS MD DATE: 02/01/251609 PATIENT: JUSTIN KLINE MR#: [id number] : 1955 SEX: F AGE: 70 LOCATION: 2C ORDER 99 STATUS: ADM IN REPORT#: [id number] SERVICE 06 REASON: pp ORDERING PHYSICIAN: RERE BLAIR PAC PROCEDURE: CXR1VW - CHEST 1VW EXAM: CR Chest, 1 View. CLINICAL HISTORY: pp COMPARISON: Jan 31, 2025. FINDINGS: ETT tip 2.9 cm above arminda. Left PICC tip in SVC. LUNGS: Left perihilar and left basilar airspace disease, slightly more apparent on today's study. Improved left lung aeration. Small left pleural effusion. MEDIASTINUM: Cardiomegaly. BONES: No aggressive appearing osseous lesion seen. IMPRESSION: Left perihilar and left basilar airspace disease, slightly more apparent on today's study. Improved left lung aeration. Small left pleural effusion. /[place] DICTATED BY: GOVIND HAYES MD DATE: 02/02/25709 ELECTRONICALLY SIGNED BY: GOVIND HAYES MD DATE: 02/02/25709 PATIENT: JUSTIN KLINE MR#: [id number] : 1955 SEX: F AGE: 70 LOCATION: [facility] ORDER 1 STATUS: ADM IN REPORT#: [id number] SERVICE 1 REASON: UNRESPONSIVE ORDERING PHYSICIAN: RERE BLAIR PROCEDURE: HEAD WO - CT HEAD/BRAIN W/O CONTRAST EXAM: CT Head Without IV contrast. CLINICAL HISTORY: UNRESPONSIVE TECHNIQUE: Axial computed tomography images of the head/brain without intravenous contrast. COMPARISON: None provided. FINDINGS: BRAIN: There is diffuse cerebral atrophy, evidenced by prominence of the cortical sulci and ventricular system, compatible with age-related changes. There is evidence of chronic small vessel ischemic change characterized by bilateral periventricular and deep white matter hypodensities. Ill-defined hypodensity with loss of rodriguez-white matter interface in the right frontal and high parietal lobes concerning for a possible infarct. No evidence of acute hemorrhage. No mass lesion. No midline shift or extra-axial collections. VENTRICLES: No hydrocephalus. ORBITS: The orbits are unremarkable. SINUSES AND MASTOIDS: Mucosal thickening in bilateral sphenoidal sinuses. The rest of the Paranasal sinuses and mastoid air cells are clear. BONES: No fracture. SOFT TISSUES: Unremarkable. IMPRESSION: 1. Ill-defined hypodensity with loss of rodriguez-white matter interface in the right frontal and high parietal lobes concerning for possible infarct. Consider MRI 2. No acute intracranial hemorrhage. /[place] DICTATED BY: SELIN BURNS MD DATE: 01/31/251730 ELECTRONICALLY SIGNED BY: SELIN BURNS MD DATE: 01/31/25 173 PATIENT: JUSTIN KLINE MR#: [id number] : 1955 SEX: F AGE: 70 LOCATION: [facility] ORDER 0914 STATUS: ADM IN REPORT#: [id number] SERVICE 0912 REASON: pp ORDERING PHYSICIAN: RERE BLAIR PROCEDURE: CXR1VW - CHEST 1VW EXAM: CR Chest, 1 View. CLINICAL HISTORY: pp COMPARISON: 01/30 20:49 EDT CR - CHEST 1VW FINDINGS: Essentially stable since prior exam. ETT tip 4 cm above arminda. Left PICC tip in SVC. stable left perihilar and left basilar airspace disease and small left pleural effusion. Right lung remains relatively clear. Negative for pneumothorax. Heart size, pulmonary vascularity and mediastinum within normal limits. PLEURAL SPACES: No evidence of pleural effusion or pneumothorax. MEDIASTINUM: Cardiac size and mediastinal contours within normal limits. BONES: No aggressive appearing osseous lesion seen. IMPRESSION: Stable chest. Support lines and tubes appear appropriate position and stable. Stable left perihilar and left basilar airspace disease and small left pleural effusion. Right lung remains clear. /[place] DICTATED BY: RADHA BECERRA Jr., MD DATE: 01/31/251312 ELECTRONICALLY SIGNED BY: RADHA BECERRA Jr., MD DATE: 01/31/251312 PATIENT: JUSTIN KLINE MR#: [id number] : 1955 SEX: F AGE: 70 LOCATION: [facility] ORDER 0758 STATUS: ADM IN REPORT#: [id number] SERVICE 075 REASON: congestion,intubated ORDERING PHYSICIAN: RERE BLAIR PROCEDURE: CXR1VW - CHEST 1VW EXAM: CR Chest, 2 View. CLINICAL HISTORY: congestion,intubated COMPARISON: Yesterday FINDINGS: LUNGS: Endotracheal tube adequately positioned above level arminda. Left retrocardiac opacity could be due to pleural effusion/atelectasis. Pulmonary vascular congestion. PLEURAL SPACES: Small right pleural effusion. MEDIASTINUM: Cardiomegaly. BONES: No acute osseous abnormality. IMPRESSION: 1. Endotracheal tube adequately positioned above the arminda. 2. Left retrocardiac opacity, possibly due to pleural effusion or atelectasis. 3. Pulmonary vascular congestion. 4. Small right pleural effusion. 5. Cardiomegaly. /[place] DICTATED BY: KIMBERLEE FABIAN MD DATE: 01/30/251050 ELECTRONICALLY SIGNED BY: KIMBERLEE FABIAN MD DATE: 01/30/251050 PATIENT: JUSTIN KLINE MR#: [id number] : 1955 SEX: F AGE: 70 LOCATION: [facility] ORDER 0 STATUS: ADM IN REPORT#: [id number] SERVICE 9 REASON: intubated ORDERING PHYSICIAN: MISTI DAY APRN PROCEDURE: CXR1VW - CHEST 1VW CHEST 1VW REASON: intubated COMPARISON: Prior chest radiograph from 01/28/2025 is available. FINDINGS: Single view of the chest was obtained. They demonstrate mild cardiomegaly. There is uncoiling atherosclerotic change of thoracic aorta. The lung hassan demonstrate there is an infiltrate in the left lower lung with left-sided pleural effusion which appears to be worsening. The remaining lung hassan are clear. Endotracheal tube is unchanged in satisfactory position. There is mild elevation of the right hemidiaphragm.. Mediastinum and bony thorax appear unremarkable. The bony thorax demonstrate mild osteopenia.. IMPRESSION: 1. There is infiltrate annual in the left lower lung with left-sided pleural effusion 2. Mild cardiomegaly 3. Endotracheal tube in satisfactory position.. DICTATED BY: RENA MADDOX MD DATE: 01/29/251010 ELECTRONICALLY SIGNED BY: RENA MADDOX MD DATE: 01/29/251014 PATIENT: JUSTIN KLINE MR#: [id number] : 1955 SEX: F AGE: 70 LOCATION: 2[facility] ORDER 0834 STATUS: ADM IN REPORT#: [id number] SERVICE 0833 REASON: pp ORDERING PHYSICIAN: RERE BLAIR PROCEDURE: CXR1VW - CHEST 1VW CHEST 1VW REASON: pp COMPARISON: Prior study from 01/26/2025 is available. FINDINGS: Single view of the chest was obtained. Lungs are clear. There is groundglass appearance suggesting of left-sided pleural effusion. Heart size is normal. There is uncoiling atherosclerotic change of thoracic aorta. There is no pulmonary vascular congestion. The endotracheal tube is in satisfactory position. Mediastinum and bony thorax appear unremarkable. IMPRESSION: 1. No evidence of airspace consolidation or pulmonary venous congestion 2. There is suggestion of a left-sided [id number] pleural effusion 3. Endotracheal tube in satisfactory position.. DICTATED BY: RENA MADDOX MD DATE: 01/28/25 1107 ELECTRONICALLY SIGNED BY: RENA MADDOX MD DATE: 01/28/25 1112 PATIENT: JUSTIN KLINE MR#: [id number] : 1955 SEX: F AGE: 70 LOCATION: 2[facility] ORDER 2300 STATUS: ADM IN REPORT#: [id number] SERVICE 0600 REASON: vented pt ORDERING PHYSICIAN: KARL RODRIGUEZ PROCEDURE: CXR1VW - CHEST 1VW EXAM: XR Chest, 3 Views. CLINICAL HISTORY: 70-year-old female ventilated patient. COMPARISON: Prior exam from 01/25/2025 at 3:39 PM. FINDINGS: LUNGS: Minimal pulmonary congestion, new compared to the prior exam. PLEURAL SPACES: No pleural effusion or pneumothorax. HEART: Moderate cardiomegaly, somewhat more pronounced compared to the prior exam. BONES: No acute osseous abnormality. VASCULATURE: Atherosclerotic aorta. LINES AND TUBES: Endotracheal tube tip at the arminda. Recommendation for withdrawal of 1 to 2 cm. IMPRESSION: 1. Endotracheal tube tip at the arminda. Recommend withdrawal of 1 to 2 cm. 2. Moderate cardiomegaly, somewhat more pronounced compared to the prior exam. 3. Atherosclerotic aorta. 4. Minimal pulmonary congestion, new compared to the prior XR chest from 01/25/2025 at 3:39 PM. /[place] DICTATED BY: TOM SANCHEZ MD DATE: 01/26/252120 ELECTRONICALLY SIGNED BY: TOM SANCHEZ MD DATE: 01/26/252120 PATIENT: JUSTIN KLINE MR#: [id number] : 1955 SEX: F AGE: 70 LOCATION: 2[facility] ORDER 153 STATUS: ADM IN REPORT#: [id number] SERVICE 38 REASON: picc placement ORDERING PHYSICIAN: RERE BLAIR PROCEDURE: CXR1VW - CHEST 1VW CHEST 1VW REASON: picc placement COMPARISON: Prior chest radiograph from 01/25/2025 at 1534 is available. FINDINGS: Single view of the chest was obtained. Lungs are clear. Heart size is normal. There is uncoiling atherosclerotic change of thoracic ureter. There is no pulmonary vascular congestion. Mediastinum and bony thorax appear unremarkable. There is a right-sided PIC catheter tip in superior vena cava at the cavoatrial junction. Endotracheal tube is in satisfactory position. IMPRESSION: 1. Support lines are in satisfactory position.. 2. No evidence of airspace consolidation or pulmonary venous congestion. DICTATED BY: RENA MADDOX MD DATE: 01/25/258 ELECTRONICALLY SIGNED BY: RENA MADDOX MD DATE: 01/25/25 1604 PATIENT: JUSTIN KLINE MR#: [id number] : 1955 SEX: F AGE: 70 LOCATION: 2[facility] ORDER 152 STATUS: ADM IN REPORT#: [id number] SERVICE 152 REASON: PICC placement ORDERING PHYSICIAN: RERE BLAIR PROCEDURE: CXR1VW - CHEST 1VW EXAM: XR Chest, 1 View. CLINICAL HISTORY: 70 year old female PICC placement right upper extremity. COMPARISON: None provided. FINDINGS: LUNGS: The lungs are clear. No consolidation. PLEURAL SPACES: No pleural effusion or pneumothorax. HEART: The heart size is enlarged. BONES: No acute osseous abnormality. LINES AND TUBES: PICC line with tip in the SVC. Endotracheal tube with tip in the arminda. VASCULATURE: Atherosclerotic aorta, similar to prior. IMPRESSION: 1. No acute cardiopulmonary pathology. 2. PICC line with tip in the SVC and endotracheal tube with tip in the arminda. /[place] DICTATED BY: TOM SANCHEZ MD DATE: 01/25/252108 ELECTRONICALLY SIGNED BY: TOM SANCHEZ MD DATE: 01/25/252108 PATIENT: JUSTIN KLINE MR#: [id number] : 1955 SEX: F AGE: 70 LOCATION: [facility] ORDER 99 STATUS: ADM IN REPORT#: [id number] SERVICE 06 REASON: vented pt ORDERING PHYSICIAN: KARL RODRIGUEZ PROCEDURE: CXR1VW - CHEST 1VW EXAM: XR Chest, 2 Views. CLINICAL HISTORY: 70-year-old female, ventilated. COMPARISON: 01/24/2025. FINDINGS: LUNGS: Atelectasis lung bases. PLEURAL SPACES: Left pleural effusion, similar to prior XR chest from 01/24/2025 at 4:48 am. HEART: The heart size is normal. BONES: No acute osseous abnormality. IMPRESSION: 1. Left pleural effusion, similar to prior XR chest from 01/24/2025 at 4:48 am. 2. Atelectasis lung bases. /[place] DICTATED BY: TOM SANCHEZ MD DATE: 01/25/252038 ELECTRONICALLY SIGNED BY: TOM SANCHEZ MD DATE: 01/25/252038 PATIENT: JUSTIN KLINE MR#: [id number] : 1955 SEX: F AGE: 70 LOCATION: 2[facility] ORDER 1510 STATUS: ADM IN REPORT#: [id number] SERVICE 1508 REASON: HGB drop, assess for possible GI bleed ORDERING PHYSICIAN: KIRSTEN KRUSE MD PROCEDURE: GIBLEED - NM GI BLOOD LOSS IMAG Examination NM radiolabeled red blood cell study History Gastrointestinal bleeding Technique After IV administration of Tc-99m labeled red autologous blood cells, anterior projection images of the abdomen and pelvis were obtained dynamically for one hour. Findings Following administration of radiolabeled red blood cells, there is normal activity seen in cardiovascular and genitourinary structures, the liver and spleen. There is no evidence for extravasation of radiolabeled red blood cells during the examination. IMPRESSION: No evidence of gastrointestinal hemorrhage during the course of examination acquisition. /[place] DICTATED BY: RADHA BECERRA Jr., MD DATE: 01/25/251457 ELECTRONICALLY SIGNED BY: RADHA BECERRA Jr., MD DATE: 01/25/251457 PATIENT: JUSTIN KLINE MR#: [id number] : 1955 SEX: F AGE: 70 LOCATION: 2[facility] ORDER 1143 STATUS: ADM IN REPORT#: [id number] SERVICE 1131 REASON: new onset swelling in her arms ORDERING PHYSICIAN: KIRSTEN KRUSE MD PROCEDURE: VENOUS ALCIDES - US VENOUS DOPPLER BILATERAL EXAMINATION: SPECTRAL DOPPLER ULTRASOUND EXAMINATION OF THE BILATERAL UPPER EXTREMITY VEINS. CLINICAL HISTORY: Swelling. COMPARISON: None. TECHNIQUE: Grayscale, color, and spectral Doppler images of the bilateral upper extremity veins are submitted. FINDINGS: Right: The cephalic and brachial veins are patent. These veins show normal flow with physiological changes of phasicity and augmentation. There is thrombosis in the subclavian, axillary, and basilic veins. Left: The internal jugular, subclavian, axillary, basilic, brachial veins are patent. These veins show normal flow with physiological changes of phasicity and augmentation. IMPRESSION: Deep vein thrombosis in the right subclavian and axillary veins. Right basilic vein thrombosis. The bar attendant informed the patient's nurse at the time of the exam. /[place] DICTATED BY: GOVIND HAYES MD DATE: 01/25/25722 ELECTRONICALLY SIGNED BY: GOVIND HAYES MD DATE: 01/25/25722 PATIENT: JUSTIN KLINE MR#: [id number] : 1955 SEX: F AGE: 70 LOCATION: 2CH ORDER 2300 STATUS: ADM IN REPORT#: [id number] SERVICE 06 REASON: vented pt ORDERING PHYSICIAN: KARL RODRIGUEZ MANAGER HOTEL PROCEDURE: CXR1VW - CHEST 1VW EXAM: CR Chest, 1 View. CLINICAL HISTORY: vented pt COMPARISON: None provided. FINDINGS: LUNGS: Endotracheal tube midline above arminda Slight worsening left lower lobe infiltrate PLEURAL SPACES: No evidence of pleural effusion or pneumothorax. MEDIASTINUM: Cardiac size and mediastinal contours within normal limits. BONES: No acute osseous abnormality. IMPRESSION: 1. Endotracheal tube midline above arminda 2. Slight worsening left lower lobe infiltrate /[place] DICTATED BY: ANA ALSTON MD DATE: 01/24/252109 ELECTRONICALLY SIGNED BY: ANA ALSTON MD DATE: 01/24/252109 PATIENT: JUSTIN KLINE MR#: [id number] : 1955 SEX: F AGE: 70 LOCATION: 2[facility] ORDER 1301 STATUS: ADM IN REPORT#: [id number] SERVICE 1258 REASON: Decreased renal function ORDERING PHYSICIAN: SAUMYA ANTONIO PROCEDURE: RENAL - US RENAL SONOGRAM EXAMINATION: ULTRASOUND OF THE RETROPERITONEUM. CLINICAL HISTORY: Decreased renal function. COMPARISON: CT abdomen and pelvis without contrast dated 01/22/2025. TECHNIQUE: Real-time grayscale ultrasound images of the kidneys. FINDINGS: The right kidney is smaller in caliber, and the left kidney is normal in caliber, the right kidney measures 7.4 x 3.9 x 3.1 cm and the left kidney measures 8.2 x 3.0 x 3.3 cm in its craniocaudal, AP, and transverse dimensions respectively. There is normal renal cortical thickness and increased cortical echogenicity. There is no renal calculus or hydronephrosis. The urinary bladder is empty. There is Kamara???s bulb. IMPRESSION: Relatively small right kidney. Increased echogenicity of both the kidneys may reflect renal parenchymal disease. Recommend clinical correlation and with laboratory parameters. Kamara???s bulb is in situ. /[place] DICTATED BY: RADHA BECERRA Jr., MD DATE: 01/23/252300 ELECTRONICALLY SIGNED BY: RADHA BECERRA Jr., MD DATE: 01/23/252300 PATIENT: JUSTIN KLINE MR#: [id number] : 1955 SEX: F AGE: 70 LOCATION: [facility] ORDER 4 STATUS: ADM IN REPORT#: [id number] SERVICE 0743 REASON: intubated,congestion ORDERING PHYSICIAN: KARL RODRIGUEZ PROCEDURE: CXR1VW - CHEST 1VW EXAM: CR Chest, 1 View. CLINICAL HISTORY: intubated,congestion COMPARISON: 01/22 16:55 EDT CR - CHEST 1VW FINDINGS: ET tube 3.7 cm above the arminda. LUNGS: The lungs show no infiltrate or other acute finding. PLEURAL SPACES: No pleural effusion or pneumothorax. MEDIASTINUM: Cardiac size and mediastinal contours within normal limits. BONES: No acute osseous abnormality. IMPRESSION: No acute cardiopulmonary pathology is evident. ET tube 3.7 cm above the arminda. /[place] DICTATED BY: RADHA BECERRA Jr., MD DATE: 01/23/25 1010 ELECTRONICALLY SIGNED BY: RADHA BECERRA Jr., MD DATE: 01/23/251009 PATIENT: JUSTIN KLINE MR#: [id number] : 1955 SEX: F AGE: 70 LOCATION: 2[facility] ORDER 23 STATUS: ADM IN REPORT#: [id number] SERVICE 22 REASON: NG tube location ORDERING PHYSICIAN: KENA HAWLEY MD PROCEDURE: ABD 1VW - ABD 1VW ADDENDUM REPORT ADDENDUM: Results were shared by telephone at 10:10 pm on 01-22-25 and acknowledged by KENA Rivas. /[place] EXAM: CR Abdomen, 1 View. CLINICAL HISTORY: NG tube location COMPARISON: None provided. FINDINGS: BOWEL: The bowel gas pattern is within normal limits. PERITONEUM/SOFT TISSUES: No free air evident. No pathologic appearing calcification. BONES: No acute osseous abnormality. MISCELLANEOUS: No nasogastric tube identified. Gastrostomy tube left upper IMPRESSION: 1. No nasogastric tube identified. 2. Gastrostomy tube left upper quadrant /[place] DICTATED BY: ANA ALSTON MD DATE: 01/22/252210 ELECTRONICALLY SIGNED BY: DATE: EXAM: CR Abdomen, 1 View. CLINICAL HISTORY: NG tube location COMPARISON: None provided. FINDINGS: BOWEL: The bowel gas pattern is within normal limits. PERITONEUM/SOFT TISSUES: No free air evident. No pathologic appearing calcification. BONES: No acute osseous abnormality. MISCELLANEOUS: No nasogastric tube identified. Gastrostomy tube left upper IMPRESSION: 1. No nasogastric tube identified. 2. Gastrostomy tube left upper quadrant /[place] DICTATED BY: ANA ALSTON MD DATE: 01/22/252200 ELECTRONICALLY SIGNED BY: ANA ALSTON MD DATE: 01/22/252200 PATIENT: JUSTIN KLINE MR#: [id number] : 1955 SEX: F AGE: 70 LOCATION: [facility] ORDER 50 STATUS: ADM IN REPORT#: [id number] SERVICE 49 REASON: post intubation CXR ORDERING PHYSICIAN: KARL RODRIGUEZ PROCEDURE: CXR1VW - CHEST 1VW ADDENDUM REPORT ADDENDUM: Results were shared by telephone at 6:33 pm on 01-22-25 and acknowledged by patient's nurse JESSICA Mas. /[place] EXAM: CR Chest, 2 View. CLINICAL HISTORY: post intubation CXR COMPARISON: None provided. FINDINGS: LUNGS: Endotracheal tube appears midline above arminda PLEURAL SPACES: No pleural effusion or pneumothorax. MEDIASTINUM: The cardiomediastinal silhouette is within normal limits. BONES: No acute osseous abnormality. MISCELLANEOUS: Question nasogastric tube in the thoracic inlet. IMPRESSION: 1. Endotracheal tube appears midline above arminda 2. Question nasogastric tube in the thoracic inlet. /[place] DICTATED BY: ANA ALSTON MD DATE: 01/22/251835 ELECTRONICALLY SIGNED BY: DATE: EXAM: CR Chest, 2 View. CLINICAL HISTORY: post intubation CXR COMPARISON: None provided. FINDINGS: LUNGS: Endotracheal tube appears midline above arminda PLEURAL SPACES: No pleural effusion or pneumothorax. MEDIASTINUM: The cardiomediastinal silhouette is within normal limits. BONES: No acute osseous abnormality. MISCELLANEOUS: Question nasogastric tube in the thoracic inlet. IMPRESSION: 1. Endotracheal tube appears midline above arminda 2. Question nasogastric tube in the thoracic inlet. /[place] DICTATED BY: ANA ALSTON MD DATE: 01/22/251821 ELECTRONICALLY SIGNED BY: ANA ALSTON MD DATE: 01/22/251821 PATIENT: JUSTIN KLINE MR#: [id number] : 1955 SEX: F AGE: 70 LOCATION: [facility] ORDER 151 STATUS: ADM IN REPORT#: [id number] SERVICE 1509 REASON: transaminitis rule out CBD dilation/obstruction cholangitis ORDERING PHYSICIAN: KARL RODRIGUEZ PROCEDURE: ABDRUQLTD - US ABDOMINAL RUQ\LTD EXAMINATION: ULTRASOUND OF THE ABDOMEN (LIMITED) WITH COLOR DOPPLER. CLINICAL HISTORY: Transaminitis. To rule out CBD obstruction. COMPARISON: CT abdomen and pelvis without contrast from the same day. TECHNIQUE: Real-time grayscale ultrasound images of the abdomen. In addition, color Doppler is medically necessary to perform in order to evaluate vascularity and blood flow. FINDINGS: Liver: Normal in caliber, the right hepatic lobe measures 15.4 cm in the craniocaudal dimension. There is increased echogenicity of the hepatic parenchyma. There is no focal hepatic abnormality or intrahepatic biliary ductal dilatation. There is normal spectral Doppler of the main portal vein. Gallbladder: Within normal limits with normal wall thickness (0.22 cm). No hyperemia or pericholecystic free fluid. There are few calculi, the largest measure 1.5 cm. Common bile duct is normal in caliber, measuring 0.28 cm. Pancreas: Obscured by overlying bowel gas. The right kidney is normal in caliber, the right kidney measures 8.2 x 3.3 x 2.9 cm in craniocaudal, AP, and transverse dimensions respectively. There is normal renal cortical thickness, and cortical echogenicity. There is no renal calculus or hydronephrosis. IMPRESSION: Hepatic steatosis. Cholelithiasis. No cholecystitis. /[place] DICTATED BY: GOVIND HAYES MD DATE: 01/23/25856 ELECTRONICALLY SIGNED BY: GOVIND HAYES MD DATE: 01/23/25856 PATIENT: JUSTIN KLINE MR#: [id number] : 1955 SEX: F AGE: 70 LOCATION: H ORDER 26 STATUS: ADM IN REPORT#: [id number] SERVICE 25 REASON: PERICARDIAL EFFUSION. Please also assess EF ORDERING PHYSICIAN: KENA HAWLEY MD PROCEDURE: ECHO [facility] - ECHO 2-D COMPLETE APPROVED REPORT EXAM: Two-dimensional and M-mode echocardiogram with Doppler and color Doppler. INDICATION ICD: Assess pericardial effusion and ejection fraction 2D Dimensions RVDd 3.0 cm LVEF(%) 49.3 (>50%) LVED Vol(simp.) 20.0 mL IVSd 1.9 (0.7-1.1cm) FS(%) 23 % LVES Vol(simp.) 9.0 mL LVDd 2.4 (3.8-5.6cm) LA (2D) 2.6 (1.6-4.0cm) LVEF(%, simp.) 55 % PWd 2.0 (0.7-1.1cm) Ao Root(2D) 2.7 (2.0-3.7cm) LA ESV INDEX (BP) 22.00 mL/m2 IVSs 2.0 cm LVOT diam 2.0 (1.8-2.4cm) LVDs 1.8 (2.5-4.0cm) IVC diam 1.2 cm PWs 1.7 cm Deformation Strain Apical 4 -7.1 % Apical 2 -6.9 % Apical 3 -10.1 % Global Strain -8.0 % M-Mode Dimensions EPSS 0.8 cm LA (MM) 2.3 (1.6-4.0cm) Ao Root(MM) 2.9 (2.0-3.7cm) Aortic Valve AoV Vmax 2.1 m/s Ao Peak GR 17.0 mmHg LVOT Vmax 2.1 m/s AoV VTI 0.2 m Ao Mean GR 8.4 mmHg LVOT VTI 0.22 m YASMEEN (VMAX) 3.02 cm2 YASMEEN (VTI) 3.6 cm2 Mitral Valve MV E Vmax 51.6 cm/s DECEL Time 82 ms MV A Vmax 69.0 cm/s P 1/2 T 19 ms E/A ratio 0.7 MVA (PHT) 11.9 cm2 TDI E/E' Medial 6.8 E/E' Lateral 9.3 Medial E' Peak V 7.57 cm/s Lateral E' Peak V 5.54 cm/s Pulmonary Valve PV Vmax 1.3 m/s PV VTI 0.14 m PV Mean GR 3.5 mmHg PV Peak GR 6.5 mmHg Tricuspid Valve TR Vmax 1.5 m/s RAP (EST) 3 mmHg RVSP 12.4 mmHg TR Peak GR 9.4 mmHg Left Ventricle Left ventricular cavity is small. GLS -8.0% Severe concentric left ventricular hypertrophy. LVEF is 50-55%. The left ventricular diastolic function is normal. Right Ventricle The right ventricle is normal size. The right ventricular systolic function is normal. Atria The left atrium size is normal. The right atrium is small in size. Aortic Valve The aortic valve is normal in structure. No aortic regurgitation is present. There is no aortic valvular stenosis. Mitral Valve The mitral valve is normal in structure. There is trace of mitral valve regurgitation noted. There is no mitral valve stenosis. Tricuspid Valve The tricuspid valve is normal in structure. There is trace of tricuspid valve regurgitation noted. Pulmonic Valve Pulmonic valve is not well visualized. There is no pulmonic valvular regurgitation. Great Vessels The aortic root is normal in size. The IVC is normal in size and collapses >50% with inspiration. Pericardium There is no pericardial effusion. Other Information Quality : Technically difficult study due to body habitus, pt intubated Rhythm : Tachycardia Conclusion LVEF is 50-55%. Severe concentric left ventricular hypertrophy. The left ventricular diastolic function is normal. There is no pericardial effusion. DICTATED BY: GIULIANA AWAN DO DATE: 01/22/25 1318 ELECTRONICALLY SIGNED BY: GIULIANA AWAN DO DATE: 01/23/25 6246 PATIENT: JUSTIN KLINE MR#: [id number] : 1955 SEX: F AGE: 70 LOCATION: [facility] ORDER 1152 STATUS: ADM IN REPORT#: [id number] SERVICE 1151 REASON: S/P INTUBATION. ET tube position ORDERING PHYSICIAN: KENA HAWLEY MD PROCEDURE: CXR1VW - CHEST 1VW EXAM: CR Chest, 2 View. CLINICAL HISTORY: S/P INTUBATION. ET tube position COMPARISON: Radiograph from January 22 at 8:53 AM FINDINGS: Endotracheal tube terminates 1.4 cm above the arminda. LUNGS: There is no mass, infiltrate, or acute pulmonary abnormality. PLEURAL SPACES: No pleural effusion or pneumothorax. MEDIASTINUM: Cardiac size and mediastinal contours within normal limits. Atherosclerosis of the thoracic aorta. BONES: No acute osseous abnormality. IMPRESSION: 1. Endotracheal tube positioned 1.4 cm above the arminda. 2. No acute cardiopulmonary abnormality. /[place] DICTATED BY: RADHA BECERRA Jr., MD DATE: 01/22/251309 ELECTRONICALLY SIGNED BY: RADHA BECERRA Jr., MD DATE: 01/22/251309 PATIENT: JUSTIN KLINE MR#: [id number] : 1955 SEX: F AGE: 70 LOCATION: ED ORDER 8 STATUS: REG ER REPORT#: [id number] SERVICE REASON: gi bleed ORDERING PHYSICIAN: JULISA PETERSON MD PROCEDURE: ABD PEL WO - CT ABDOMEN/PELVIS W/O CONTRAST CT ABDOMEN/PELVIS W/O CONTRAST REASON: gi bleed COMPARISON: None. FINDINGS: Lung bases are clear. There is a small left-sided pleural effusion. There is coronary calcifications suggesting coronary artery disease. There is suggestion of small pericardial effusion. There is a moderate size hiatal hernia. . There are no focal liver lesions. There are normal-appearing kidneys.. Spleen and pancreas appear unremarkable. The gallbladder appears normal as well. There is a feeding gastrostomy tube in place. Bowel loops appear unremarkable. This includes normal appearance of the appendix . There is fecal stasis in the rectal vault. Abutting the right lobe of the bowel in the right lower quadrant and abutting the right psoas muscle there is a a cystic structure measuring 5.9 x 3.9 cm. There is no evidence of free fluid or intraperitoneal air. There are no focal fluid collections. The retroperitoneum appear normal as do pelvic soft tissue structures. Aorta and iliac vessels demonstrate diffuse atherosclerotic changes. The anterior abdominal wall is intact. Osseous structures appear unremarkable. The uterus is surgically absent. IMPRESSION: 1. No acute process seen in CT of abdomen and pelvis without intravenous contrast 2. In the right adnexal region there is a cystic structure measuring 5.9 x 3.9 cm 3. Fecal stasis impaction seen in the rectal vault CT was performed with one or more following dose reduction techniques: automated exposure control, adjustment of the mA and kv according to patient's size, or use of a iterative reconstruction technique. DICTATED BY: RENA MADDOX MD DATE: 01/22/25 1044 ELECTRONICALLY SIGNED BY: RENA MADDOX MD DATE: 01/22/25 1051 PATIENT: JUSTIN KLINE MR#: [id number] : 1955 SEX: F AGE: 70 LOCATION: [facility] ORDER 8 STATUS: [facility] REPORT#: [id number] SERVICE 0948 REASON: gi bleed ORDERING PHYSICIAN: JULISA PETERSON MD PROCEDURE: ABD PEL WO - CT ABDOMEN/PELVIS W/O CONTRAST CT ABDOMEN/PELVIS W/O CONTRAST REASON: gi bleed COMPARISON: None. FINDINGS: Lung bases are clear. There is a small left-sided pleural effusion. There is coronary calcifications suggesting coronary artery disease. There is suggestion of small pericardial effusion. There is a moderate size hiatal hernia. . There are no focal liver lesions. There are normal-appearing kidneys.. Spleen and pancreas appear unremarkable. The gallbladder appears normal as well. There is a feeding gastrostomy tube in place. Bowel loops appear unremarkable. This includes normal appearance of the appendix . There is fecal stasis in the rectal vault. Abutting the right lobe of the bowel in the right lower quadrant and abutting the right psoas muscle there is a a cystic structure measuring 5.9 x 3.9 cm. There is no evidence of free fluid or intraperitoneal air. There are no focal fluid collections. The retroperitoneum appear normal as do pelvic soft tissue structures. Aorta and iliac vessels demonstrate diffuse atherosclerotic changes. The anterior abdominal wall is intact. Osseous structures appear unremarkable. The uterus is surgically absent. IMPRESSION: 1. No acute process seen in CT of abdomen and pelvis without intravenous contrast 2. In the right adnexal region there is a cystic structure measuring 5.9 x 3.9 cm 3. Fecal stasis impaction seen in the rectal vault CT was performed with one or more following dose reduction techniques: automated exposure control, adjustment of the mA and kv according to patient's size, or use of a iterative reconstruction technique. DICTATED BY: RENA MADDOX MD DATE: 01/22/251043 ELECTRONICALLY SIGNED BY: RENA MADDOX MD DATE: 01/22/251050 PATIENT: JUSTIN KLINE MR#: [id number] : 1955 SEX: F AGE: 70 LOCATION: [facility] ORDER 9 STATUS: [facility] REPORT#: [id number] SERVICE 7 REASON: ORDERING PHYSICIAN: JULISA PETERSON MD PROCEDURE: CXR1VW - CHEST 1VW EXAM: Chest radiograph 1 view HISTORY: Chest pain COMPARISON: None FINDINGS: No pulmonary consolidations. No pleural effusion or pneumothorax. Enlarged cardiac silhouette. Tortuous calcified aorta. No overt congestion. Degenerative changes. IMPRESSION: No acute cardiopulmonary disease. /[place] DICTATED BY: DESTINY CASTELLANOS MD DATE: 01/22/251058 ELECTRONICALLY SIGNED BY: DESTINY CASTELLANOS MD DATE: 01/22/251058 ASSESSMENT: Acute renal failure Anemia Septic shock requiring pressors, POA Acute metabolic encephalopathy POA Acute Hypoxic rep failure requiring intubation for airway protection POA Acute complicated cystitis POA Acute on chronic anemia 2/ GI Bleed (Hematemesis) POA Hyperglycemia in the presence of type 2 diabetes mellitus, POA right adnexal region there is a cystic structure measuring 5.9 x 3.9 cm Thrombocytosis Hypokalemia Electrolyte derangement (hypokalemia, hypocalcemia) severe Hypoalbuminemia Malnutrition Transaminitis Elevated TSH suspected myxedema Uncontrolled type 2 diabetes mellitus Essential hypertension Anemia Prior history of CVA Right [id number] amputation G-tube in situ Bed ridden Recent hospitalization [facility] for hematemesis PLAN: Labs, diagnostic, radiologic exams reviewed and interpreted by myself and supervising physician. We have reviewed external records in detail Pending further Neurology recommendations Require close monitoring of renal function and electrolytes Order CBC, CMP, and electrolytes in am Continue with antibiotics Continue mechanical ventilation and sedation Continue with IV pressors Monitor blood pressure adjust medication doses as needed Avoid hypotensive episodes May use Dilaudid 0.5 mg IV every 6 hours as needed for severe pain Monitor blood sugars Strict intake, output, and daily weight should be monitored Please renally adjust medications Avoid nephrotoxic and nonsteroidal drugs Avoid contrast if possible Will continue to monitor renal function, anemia, electrolytes Treatment plan discussed with patient Questions were answered We have discussed with the other team physicians in detail about the care plan We will continue to monitor the patient closely Total critical care time spent with patient, nursing staff, critical care team over 35 minutes ATTESTATION BY PHYSICIAN I have seen and examined the patient. I reviewed the documentation, medical decision making, and treatment plan as noted by the mid-level provider above. I agree with the findings and plan of care. CHRISTELLE SIMENTAL MD, ELIZABETH FNP Feb 02, 2025 10:52
[2025-02-02 10:54] LABS: CALCIUM OXALATE CRYSTALS,UR MANY /LPF (None Seen); OTHER CASTS, URINE 14 /LPF (None Seen); SQUAMOUS EPITHELIAL CELL,UR MANY /HPF (0-2); UNCLASSIFIED CRYSTAL 37 /HPF (None Seen); WBC CLUMP MANY /HPF (0-1); YEAST,URINE BUDDING MANY /HPF (None Seen); YEAST,URINE HYPHAE MANY /HPF (None Seen)
[2025-02-02] MEDS: LACTULOSE 20 GM/30 ML UDCUP PR ONE (11:42)
[2025-02-02] MEDS: MEROPENEM 1GM 1 GM VIAL IVPB SCH (13:05)
--- NOTE | 2025-02-02 13:57 | NUR ---
[facility] Follow-up: Patient re-assessed by wound healing team. See wound assessment. Assessment and recommendations provided to primary nurse. Education provided. Addendum: 02/02/25 at 1508 by IVANIA ANDREW RN RN/ Amended: Links added.
--- NOTE | 2025-02-02 14:11 | PN ---
[facility] PROGRESS NOTE Date of Service: Feb 02, 2025 Time of Service: 8:45 SUBJECTIVE: 70-year-old female with past medical history of diabetes mellitus type 2, hypertension, anemia, history of CVA, history of right below-knee amputation who presented to the hospital secondary to hematemesis. Patient is currently intubated and sedated. The patient's history is mostly obtained from patient's who is present at bedside and from ED provider. The patient was noted to have black colored vomit at home which started yesterday. She has a history of peptic ulcer disease. She also has a PEG tube placed around two weeks ago. Peg tube was placed in [facility] [place]. Per patient is able to swallow better now. denied any fever, chills, shortness for breath, chest pain. History is fairly limited at this time as patient is not able to participate in conversation. Labs were Notable for white count of 9.1, hemoglobin was 9.1, MCV was 86.7, platelet count was 456 K, sodium was 138, potassium was 3.1, bicarb was , creatinine was 1.7, glucose was 234, alk-phos was 153, total protein was 5.0, albumin was 0.9, lipase was negative normal Underwent a CT abdomen pelvis which showed no acute process in the CT abdomen without IV contrast. Patient was noted to have cystic structure in the right adrenal region measuring 5.9 x 3.9 cm. The patient also had fecal impaction n oted. In the ED patient had episode of hematemesis and she was intubated for airway protection by ED provider. 01/23/2025: The patient is examined at the bedside. She was sedated and not responsive during my visit. GI performed EGD in the morning and they have observed no active bleeding. Nurse notified an unstageable wound on sacrum for which Wound consult is placed today. We will be manage as per critical Care recommendations. 01/24/2025: The patient is examined at the bedside. She was sedated and not responsive during my visit. Her arms are swollen. Her vitals are normal except for blood pressure is 97/51. Her labs are in the normal range except for Hb is 6.6, chloride is 113, BUN is 39, creatinine is 2.4, iron is 28, TIBC is 44, % saturation is 63.6, TSH is 7.62. Her urine culture grew 10,000-50,000 CFU. Identification and susceptibility are in process. Blood culture show no growth after 48 hours. Renal ultrasound show renal parenchymal disease. As her hemoglobin is low she received a blood transfusion. After the transfusion her hemoglobin is 7.1. We ordered a bilateral upper limb doppler which showed evidence of DVT. Gastroenterology was consulted to give recommendations on starting anticoagulation. GI recommended high dose Protonix drip for 48 hours and carafate 1gm PO QID, after 48 hours start heparin drip. IR was called to ask about the option of placing an SVC filter, and they recommended mechanical thrombectomy. The patient is not a good candidate for an SVC filter. A urinalysis, urine electrolytes, urine protein were ordered today. Urinalysis showed turbid urine, protein >300, ketones 5, moderate occult blood, moderate leukocyte esterase, RBC 6 to 10, WBC is TNTC, protein 410.9, sodium is 43, p otassium is 36, chloride is 40. 01/25/2025: The patient is examined at the bedside. She was sedated and not responsive during my visit. Her arms are swollen. Her vitals are normal. Her labs are in the normal range except for Hb is 5.9, WBC is 11.2, Cl is 112, potassium is 3.2, CO2 is 19, BUN is 40 creatinine is 2.6. As her hemoglobin is low we gave a tr ansfusion and the repeat Hb is 7.4. Gastroenterology will do EGD and colonoscopy tomorrow morning. Hematology is consulted and they recommended same management. Wound care recommended to cleanse with normal saline, pat dry, apply medihoney, cover with allevyn, change daily and prnKeep wounds clean and dry , Offloading/reposition q 2 hours. Bleeding scan showed no evidence of gastrointestinal hemorrhage. 01/26/2025: The patient is examined at the bedside. She was sedated and not responsive during my visit. Her arms are swollen. Her vitals are normal except for blood pressure which is 96/45. Her labs are in the normal range except for Hb is 8.7, K is 2.8, Cl is 112, CO2 is 19, BUN is 37, creatinine is 2.5, Albumin is 1.1. She is scheduled for an EGD and colonoscopy today. We replaced the potassium and the repeat potassium levels are 2.8 and 3.1. 01/27/2025: Patient is examined at the bedside. She was sedated and not responsive during my visit. Her arms are swollen. Her vitals are normal except for blood pressure which is 94/49. Her labs are in the normal range except for hemoglobin is 8.7, potassium is 2.9, chloride is 112, BUN is 33, creatinine is 2.5, albumin is 1, CRP is 223.1. Urine culture showed ESBL which is sensitive to Zosyn, meropenem and levofloxacin. She underwent endoscopy and colonoscopy yesterday which showed no evidence of bleeding. Gastroenterology recommended to follow within 1 week after discharge. Chest x-ray showed minimal pulmonary congestion. The nurse told us that she will try waking up the patient, extubate her and try spontaneous breathing trial. 01/28/2025: Patient is seen and examined at the bedside. She was sedated and not responsive during my visit. Her vital signs are in the normal range except for blood pressure is 97/55. Labs are in the normal range except for hemoglobin is 8.3, WBCs 12.9, potassium is 3.2, chloride is 100, bicarb is 16, BUN is 33, creatinine is 2.5, glucose is 181, ALP is 154. Yesterday the nurse tried to extubate her but she could not extubate as she is not waking up and she can't not protect her airway. She is currently on heparin drip. Critical care stopped her Protonix drip as she is fluid overloaded and they started protonix 40 mg b.i.d. We will continue to follow recommendations from critical Care and Gastroenterology. 01/29/2025: Patient is seen and examined at the bedside. She was sedated and not responsive during my visit. Her vital signs are in the normal range except for blood pressure is 90/48. Labs are in the normal range except for hemoglobin 7.7, potassium 2.9, sodium 146, chloride 113, bicarbonate 20, BUN 33, creatinine 2.5. Chest x-ray showed that there is an infiltrate in the left lower lung with a left-sided pleural effusion. She is currently on heparin drip and Protonix 40 mg b.i.d. We will continue to follow recommendations from critical Care and Gastroenterology. 01/30/2025: She was evaluated at the bedside this morning. As per nurse she passed black tarry stool this morning. She is sedated and intubated at pain sitting tidal volume 400 mL/minute, FiO2 100%, peep 5 and RR 14. She is on pressor support with Levophed 0.05. The remarkable lab is for hemoglobin 8, ALP 321, albumin 0.8, creatinine 2.5, chloride 112, bicarbonate 20. She is continued on linezolid, Zosyn, levothyroxine, levetiracetam, Protonix, Levophed. Heparin drip held for temporarily because of supratherapeutic APTT. We will continue to follow recommendations from critical Care and Gastroenterology. 01/31/2025: She was seen and evaluated at the bedside this morning. As per nurse she passed greenish colored stool this morning. She is off sedation medicine but not responding to stimuli. CT brain has been ordered for further evaluation. She continues to remain intubated at tidal volume 400 mL/minute, FiO2 30%, peep 5 and RR 14. She is continued on linezolid, and Zosyn. Cr and BUN this morning have been 2.8 and 31 respectively. Urine output in past 24 hours have been 0.0 3ml/kg/hr (75ml). We have ordered ammonia levels this morning. We will continue to follow recommendations from critical Care and Gastroenterology. 02/01/2025: Patient was seen and evaluated at bedside. Her was present besides her. She continues to be unresponsive with sluggish movement of eyes. She is off sedation and vasopressor support. Her CT scan done yesterday showed Ill-defined hypodensity with loss of rodriguez-white matter interface in the right frontal and high parietal lobes concerning for possible infarct. She will further undergo MRI and EEG. Neurology is on the board. Her ammonia levels were elevated (48) for which lactulose was added today. Due to hyperglycemia, sliding scale insulin was also adjusted. 02/02/2025: Patient was seen and evaluated at bedside. She was accompanied by her . Her daughter was on the phone and expressed concerns about the patient. We went over the progress so far and explained patient's condition to the family members. As per , patient did move her arms and open her eyes at night. Her ammonia has jumped up to 106 for which lactulose MS has been added. Sliding scale insulin was adjusted and Lantus was added because of consistent hyperglycemia. Her lactic acid is elevated at 5 and repeat values showed 5.8. Bicarb deficit was also present for which sodium bicarbonate has been added to the patient's medication regimen. Creatinine continues to be elevated by 3.1 and BUN 35. Alkaline phosphatase is also elevated 779. Patient's urine output in the past 24 hours is 150 mL. REVIEW OF SYSTEMS Unable to obtain as patient is sedated PHYSICAL EXAM GENERAL APPEARANCE: She is currently intubated and unresponsive this morning. NEUROLOGICAL: Unable to obtain. HEENT: Face is symmetric. Other examination couldn't be done. NECK: Supple. No submental, submandibular, pre-/postauricular, occipital or supraclavicular lymphadenopathy. CHEST: Normal chest expansion. LUNGS: Absence of any rales, rhonchi or any wheezing. CARDIOVASCULAR: Regular. S1 and S2 normal. No appreciable rubs, murmurs or gallops. ABDOMEN: Soft, nontender, and nondistended. There is no rebound, voluntary guarding, or rigidity. Patient has a PEG tube in place : Deferred. EXTREMITIES: Below-knee amputation of the right lower extremity SKIN: No skin breakdown. Vital Signs (last 8hr) Date Time Temp Pulse Resp B/P (MAP) Pulse Ox O2 Delivery O2 Flow Rate FiO2 02/02/25 12:30 110 23 122/43 (69) 99 30 02/02/25 12:15 111 27 143/45 (77) 99 30 02/02/25 12:00 98.1 110 19 132/43 (72) 98 30 02/02/25 12:00 98 Ventilator+ 30 30 02/02/25 11:56 97.9 02/02/25 11:45 115 27 130/50 (76) 99 30 02/02/25 11:35 114 30 02/02/25 11:30 115 29 144/65 (91) 99 30 02/02/25 11:15 115 26 139/58 (85) 99 30 02/02/25 11:00 114 28 131/56 (81) 99 30 02/02/25 10:45 114 35 114/60 (78) 99 30 02/02/25 10:30 112 30 88/45 (59) 100 30 02/02/25 10:15 111 32 79/38 (52) 100 30 02/02/25 10:00 112 30 80/43 (55) 100 30 02/02/25 09:45 115 24 92/66 (75) 100 30 02/02/25 09:30 126 29 106/56 (73) 100 30 02/02/25 09:30 30 02/02/25 09:15 119 26 134/70 (91) 100 30 02/02/25 09:00 126 32 125/108 (114) 100 30 02/02/25 08:48 109 30 02/02/25 08:45 112 31 94/45 (61) 100 30 02/02/25 08:30 99.1 113 34 92/48 (63) 100 30 02/02/25 08:15 115 35 106/54 (71) 100 30 02/02/25 08:00 118 36 105/58 (74) 100 30 02/02/25 08:00 99.0 02/02/25 08:00 99 CPAP+ 30 30 Ventilator+ 02/02/25 07:45 122 35 120/55 (76) 100 30 02/02/25 07:30 100.0 123 40 123/50 (74) 100 30 02/02/25 07:30 100.0 02/02/25 07:15 117 35 103/50 (67) 100 30 02/02/25 07:00 117 34 99/48 (65) 100 30 02/02/25 06:45 117 34 112/46 (68) 99 02/02/25 06:30 111 34 118/58 (78) 100 02/02/25 06:15 121 34 116/58 (77) 100 02/02/25 06:14 118 30 02/02/25 06:00 118 36 114/65 (81) 100 30 02/02/25 05:45 119 33 107/59 (75) 99 LABS: Laboratory: Test 02/02/25 10:30 02/02/25 10:07 02/02/25 09:50 02/02/25 08:10 Range/Units Urine Color YELLOW YELLOW Urine Appearance TURBID CLEAR Urine pH 5.5 5.0-8.0 Urine Specific [place] 1.030 1.001-1.031 Urine Protein 100 H NEGATIVE mg/dL Urine Glucose (UA) NEGATIVE NEGATIVE mg/dL Urine Ketones NEGATIVE NEGATIVE mg/dL Urine Occult Blood MODERATE H NEGATIVE Urine Nitrate NEGATIVE NEGATIVE Urine Bilirubin NEGATIVE NEGATIVE mg/dL Urine Urobilinogen 0.2 0.2-1.0 mg/dL Urine Leukocyte Esterase 500 H NEGATIVE Sunitha/uL Urine RBC 26-50 H 0-1 /HPF Urine WBC TNTC H 0-1 /HPF Urine WBC Clumps (Auto) MANY 0-1 /HPF Urine Squamous Epithelial Cells MANY 0-2 /HPF Urine Non-Squamous Epithelial Cells 2-5 0-2 /HPF Urine Calcium Oxalate Crystals MANY None Seen /LPF Urine Other Crystals (Auto) 37 None Seen /HPF Urine Amorphous Crystals (Auto) RARE None Seen /LPF Urine Bacteria MOD None Seen /HPF Urine Other Casts 14 None Seen /LPF Urine Yeast MANY None Seen /HPF Urine Yeast with Hyphae MANY None Seen /HPF Blood Gas Specimen Type Venous Arterial Blood Oxygen Saturation 73.3 L 94.0-98.0 % Venous Blood pH 7.474 H 7.320-7.430 Venous Blood pCO2 at Patient Temp 22 L 38-54 Venous Blood pO2 at Patient Temp 35.3 23.0-48.0 mmHg Venous Blood HCO3 15.9 L 22.0-29.0 Venous Blood Base Excess -6.4 L -2.0-3.0 Venous Blood Total Hemoglobin 9.2 L 12.0-16.0 Sodium (Blood Gas) 139 136-145 MMOL/L Bedside Potassium (Blood Gas) 3.8 3.4-4.5 MMOL/L Bedside Chloride (Blood Gas) 110 H 98-107 MMOL/L Bedside Glucose (Blood Gas) 185 H 65-95 MG/DL Bedside Ionized Calcium (Blood Gas) 1.18 1.15-1.33 MMOL/L Bedside Lactic Acid (Blood Gas) 6.19 *H 0.36-0.75 MMOL/L Blood Gas Temperature 37.0 35.5-37.0 CELSIUS Blood Gas Respiration Rate 20.0 min. Blood Gas Vent Mode AC-VC ROOM AIR FiO2 30.0 % Blood Gas Tidal Volume 400 ml Blood Gas PEEP 6 cm H2O Blood Gas Specimen Comment [place] Sodium Level 144 136-145 mmol/L Potassium Level 3.9 3.5-5.1 mmol/L Chloride Level 109 101-111 mmol/L Carbon Dioxide Level 19 L 21-32 mmol/L Blood Urea Nitrogen 34 H 7-18 mg/dL Creatinine 3.1 H 0.5-1.0 mg/dL Glomerular Filtration Rate Calc 16 >90 mL/min Random Glucose 189 H 70-105 mg/dL Whole Blood Ketones Quantitative < 0.1 0.0-0.6 mmol/L Total Calcium 8.6 8.5-10.1 mg/dL Activated Partial Thromboplast Time 47.6 H 26.3-35.5 SEC Lactic Acid Level 5.8 H 0.8-2.5 mmol/L Test 02/02/25 05:15 02/02/25 05:05 02/02/25 04:23 02/01/25 08:10 Range/Units Whole Blood Glucose 209 H 70-110 MG/DL White Blood Count 9.6 4.8-10.8 K/uL Red Blood Count 2.79 L 4.00-5.50 MIL/uL Hemoglobin 8.3 L 12.0-16.0 g/dL Hematocrit 24.5 L 36-48 % Mean Corpuscular Volume 87.8 79-99 fL Mean Corpuscular Hemoglobin 29.7 27.0-33.0 pg Mean Corpuscular Hemoglobin Concent 33.9 32.0-36.0 g/dL Red Cell Distribution Width 19.4 H 11.0-15.5 % Platelet Count 166 130-400 K/uL Mean Platelet Volume 11.1 H 7.5-10.5 fL Immature Granulocyte % (Auto) 0.4 0-1 % Neutrophils (%) (Auto) 90.5 H 40.0-77.0 % Lymphocytes (%) (Auto) 5.7 L 21.0-51.0 % Monocytes (%) (Auto) 2.9 L 3.0-13.0 % Eosinophils (%) (Auto) 0.4 0.0-8.0 % Basophils (%) (Auto) 0.1 0.0-5.0 % Neutrophils # (Auto) 8.7 H 1.8-7.7 K/uL Lymphocytes # (Auto) 0.6 L 1.0-4.8 K/uL Monocytes # (Auto) 0.3 0.1-1.0 K/uL Eosinophils # (Auto) 0.04 0.00-0.70 K/uL Basophils # (Auto) 0.01 0.00-0.20 K/uL Absolute Immature Granulocyte (auto 0.04 0-1 K/uL Nucleated Red Blood Cells 3.4 H 0.0-0.19 % White Cell Morphology Comment See comments Phosphorus Level 2.2 L 2.5-4.9 mg/dL Magnesium Level 1.90 1.80-2.40 mg/dL Total Bilirubin 0.3 0.2-1.0 mg/dL Aspartate Amino Transf (AST/SGOT) 37 10-37 U/L Alanine Aminotransferase (ALT/SGPT) 11 L 12-78 U/L Alkaline Phosphatase 779 *H 50-136 U/L Ammonia 106 H 11-32 umol/L Total Protein 5.1 L 6.0-8.3 g/dL Albumin 0.8 L 3.5-5.0 g/dL Arterial Blood pH 7.448 7.350-7.450 Arterial Blood Partial Pressure CO2 19 *L 32-45 mmHg Arterial Blood Partial Pressure O2 81.7 L 83.0-108.0 mmHg Arterial Blood HCO3 12.9 L 21.0-28.0 mmol/L Arterial Blood Base Excess -8.3 L -2.0-3.0 mmol/L Prothrombin Time 12.9 H 9.6-11.6 SEC Prothromb Time International Ratio 1.24 H 0.85-1.15 Current Medications Medications (Trade) Dose Ordered Sig/Arik Route PRN Reason Start Time Stop Time Status Last Admin Dose Admin Albumin Human 50 ml @ 0 mls/hr Q8H6 IV 01/24/25 14:00 01/24/25 22:00 DC 01/24/25 20:45 1,200 MLS/HR Artificial Tears (Artificial Tears) 1 DROP OR AD Q8H OU 01/23/25 19:30 02/22/25 19:29 02/02/25 11:42 1 DROP Bumetanide (Bumex 1mg Vial) 1 mg ONCE PRN IVP AFTER TRANSFUSION 01/24/25 08:00 01/24/25 09:23 DC Bumetanide (Bumex 1mg Vial) 2 mg ONCE PRN IVP AFTER TRANSFUSION 01/24/25 14:00 01/24/25 14:00 DC 01/24/25 13:28 2 MG Cefepime HCl (MAXipime 2 gm vial) 2 gm Q24H IVPB 01/23/25 12:00 01/26/25 12:05 DC 01/26/25 11:38 2 GM Ceftriaxone Sodium (ROCEphine 1G INJ) 1 gm Q24H IVPB 01/22/25 12:00 01/22/25 16:25 DC 01/22/25 14:18 1 GM Chlorhexidine Gluconate (Peridex) 15 ml TID MM 01/23/25 21:00 02/06/25 20:59 02/02/25 13:08 15 ML Dexmedetomidine/ Sodium Chloride (PRECEdex 400MCG/ 100ML-NS) 400 mcg PROTOCOL IV 01/27/25 15:30 02/26/25 15:29 Dextrose (D50w) 50 ml AD PRN IV HYPOGLYCEMIA PROTOCOL 01/22/25 15:30 02/21/25 15:29 Epoetin Carlton-epbx (Retacrit) 10,000 unit QWEEK SQ 01/31/25 15:00 03/02/25 14:59 01/31/25 15:16 10,000 UNIT Fentanyl Citrate 100 ml @ 2.5 mls/hr PROTOCOL IV 01/22/25 12:00 01/22/25 11:55 DC Fentanyl Citrate 100 ml @ 2.5 mls/hr PROTOCOL IV 01/22/25 12:00 01/27/25 15:35 DC 01/27/25 05:34 2.5 MLS/HR Glucagon (Glucagon 1mg Kit) 1 mg AD PRN IM HYPOGLYCEMIA PROTOCOL 01/22/25 15:30 02/21/25 15:29 Heparin Sodium (Porcine) (HEParin 5,000 UNIT VIAL) *calculation based on ACTUAL B... AD PRN IV HEPARIN PROTOCOL 01/27/25 16:30 02/26/25 16:29 Heparin Sodium/ Dextrose 250 ml @ 0 mls/hr Q6H IV 01/27/25 16:30 02/26/25 16:29 01/31/25 17:28 0 MLS/HR Insulin Glargine (LANtus 100 UNITS/ML 10 ML VIAL) 10 units BID@0730,2100 SQ 02/01/25 21:00 02/02/25 09:20 DC 02/02/25 08:08 10 UNITS Insulin Glargine (LANtus 100 UNITS/ML 10 ML VIAL) 20 units BID@0730,2100 SQ 02/02/25 21:00 03/04/25 20:59 Insulin Human Regular (humuLIN R 100 UNIT/ML 3ML) INSULIN SLIDING SCAL... ACHS SQ 01/22/25 21:00 01/25/25 20:51 DC 01/25/25 16:29 3 UNIT Insulin Human Regular (humuLIN R 100 UNIT/ML 3ML) INSULIN SLIDING SCAL... Q6H6 SQ 01/26/25 10:00 02/01/25 12:57 DC 02/01/25 11:59 3 UNIT Insulin Human Regular (humuLIN R 100 UNIT/ML 3ML) INSULIN SLIDING SCAL... Q6H6 SQ 02/01/25 18:00 03/03/25 17:59 02/02/25 11:45 6 UNIT Leptospermum Honey (Medihoney) 1 APPLICATION DAILY TP 01/26/25 09:00 02/25/25 08:59 02/02/25 08:36 1 APPL Levetiracetam (kepPRA 500 MG TABLET) 500 mg BID PO 01/22/25 21:00 01/22/25 22:13 DC Levetiracetam 500 mg/Sodium Chloride 100 ml @ 400 mls/hr Q12H9 IV 01/22/25 22:00 02/21/25 21:59 02/02/25 08:58 400 MLS/HR Levothyroxine Sodium (SYNTHroid VIAL 100MCG) 100 mcg SYN IV 01/23/25 06:30 02/22/25 06:29 02/02/25 05:10 100 MCG Linezolid 300 ml @ 150 mls/hr Q12H IV 01/24/25 08:00 02/01/25 12:55 DC 02/01/25 08:10 150 MLS/HR Linezolid 300 ml @ 150 mls/hr Q12H IV 02/02/25 09:30 02/12/25 09:29 02/02/25 10:31 150 MLS/HR Magnesium Sulfate 50 ml @ 0 mls/hr PROTOCOL PRN IV Hypomagnesemia 01/22/25 15:30 02/21/25 15:29 01/29/25 08:35 25 MLS/HR Meropenem (Merrem 1gm) 1 gm Q12H IVPB 02/02/25 09:30 02/02/25 11:06 DC Meropenem (Merrem 1gm) 1 gm Q12H IVPB 02/02/25 13:30 02/12/25 13:29 02/02/25 13:05 1 GM Metronidazole/ Sodium Chloride 100 ml @ 100 mls/hr Q8H6 IVPB 01/22/25 22:00 01/26/25 12:05 DC 01/26/25 06:13 100 MLS/HR Midazolam HCl 50 ml @ 0 mls/hr PROTOCOL IV 01/22/25 12:00 01/27/25 15:35 DC 01/27/25 09:10 5 MLS/HR Norepinephrine 250 ml @ 0 mls/hr PROTOCOL IV 01/22/25 10:00 01/23/25 09:52 DC 01/22/25 14:24 60 MLS/HR Norepinephrine Bitartrate (Norepineph 16 Mg/250ml NS Premix) per protocol PROTOCOL IV 01/23/25 10:00 02/22/25 09:59 02/01/25 20:44 16 MG Octreotide Acetate 1250 mcg/ Sodium Chloride 250 ml @ 0 mls/hr PROTOCOL IV 01/22/25 12:30 01/22/25 12:17 DC Octreotide Acetate 1250 mcg/ Sodium Chloride 250 ml @ 0 mls/hr PROTOCOL IV 01/22/25 12:30 01/24/25 09:23 DC 01/22/25 12:41 5 MLS/HR Pantoprazole Sodium (PROTonix 40MG INJ) 40 mg BID IVP 01/24/25 21:00 01/24/25 15:02 DC Pantoprazole Sodium (PROTonix 40MG INJ) 40 mg BID IVP 01/28/25 21:00 02/27/25 20:59 02/02/25 08:28 40 MG Pantoprazole Sodium 80 mg/ Sodium Chloride 100 ml @ 10 mls/hr Q10H IV 01/22/25 09:00 01/24/25 09:23 DC 01/24/25 09:17 10 MLS/HR Pantoprazole Sodium 80 mg/ Sodium Chloride 100 ml @ 10 mls/hr Q10H IV 01/24/25 15:00 01/28/25 13:39 DC 01/28/25 00:06 10 MLS/HR Pharmacy Profile Note (Pharmacy Communication) 1 each ONCE MISC 01/22/25 12:00 01/22/25 11:53 DC Pharmacy Profile Note (Pharmacy Communication) 1 each ONCE MISC 01/22/25 12:00 01/22/25 11:53 DC Pharmacy Profile Note (Pharmacy Communication) 1 each ONCE MISC 01/23/25 13:00 01/23/25 13:09 DC Pharmacy Profile Note (Pharmacy Communication) 1 each ONCE MISC 01/24/25 08:00 01/24/25 07:51 DC Pharmacy Profile Note (Pharmacy Communication) 1 each ONCE MISC 02/02/25 09:30 02/02/25 09:09 DC Phenylephrine HCl 100 mg/Sodium Chloride 250 ml @ 0 mls/hr AD PRN IV TITRATE 01/22/25 17:00 02/21/25 16:59 01/23/25 09:30 0 MLS/HR Piperacillin Sod/ Tazobactam Sod (Zosyn 3.375gm+NS 50ml) 3.375 gm Q8H IV 01/26/25 12:30 02/01/25 12:55 DC 02/01/25 12:04 3.375 GM Potassium Phosphate 250 ml @ 42 mls/hr PROTOCOL PRN IV PROTOCOL 02/01/25 15:30 03/03/25 15:29 02/01/25 17:21 42 MLS/HR Potassium Chloride 100 ml @ 50 mls/hr AD PRN IV POTASSIUM PROTOCOL 01/22/25 15:30 01/24/25 07:50 DC Potassium Chloride 100 ml @ 100 mls/hr AD PRN IV POTASSIUM PROTOCOL 01/22/25 15:30 02/21/25 15:29 02/01/25 06:18 100 MLS/HR Potassium Chloride (K-Dur/Klor-Con 20meq) 20 meq AD PRN PO POTASSIUM PROTOCOL 01/22/25 15:30 02/21/25 15:29 01/26/25 06:19 20 MEQ Potassium Chloride (KCl 10% Elixir 20meq/15ml) 20 meq AD PRN PO POTASSIUM PROTOCOL 01/22/25 15:30 02/21/25 15:29 02/02/25 03:29 20 MEQ Propofol (DIPRivan 1000MG/ 100ML) 1,000 mg PROTOCOL PRN IV SEDATION 01/22/25 12:00 01/22/25 11:55 DC Sodium Bicarbonate 150 meq/Dextrose 1,150 ml @ 100 mls/hr [id number] IVP 02/02/25 06:00 02/02/25 09:04 DC 02/02/25 05:45 100 MLS/HR Sodium Bicarbonate (Sodium Bicarbonate) 650 mg BID PO 01/24/25 21:00 02/23/25 20:59 02/02/25 08:29 650 MG Sodium Bicarbonate (Sodium Bicarbonate) 650 mg BID PO 02/01/25 21:00 02/01/25 13:00 DC Sodium Bicarbonate (Sodium Bicarb 50meq 50ml Vial) 50 meq Q6H IV 02/02/25 15:00 02/04/25 14:59 Sodium Chloride 1,000 ml @ 150 mls/hr Q6H40M IV 01/22/25 12:00 01/23/25 10:56 DC 01/23/25 02:45 150 MLS/HR Sucralfate (Carafate) 1 gm BID PO 01/23/25 21:00 01/23/25 11:41 DC Sucralfate (Carafate) 1 gm QID PO 01/24/25 17:00 02/23/25 16:59 02/02/25 13:05 1 GM Sucralfate (Carafate) 1 gm TID PO 01/23/25 14:00 01/24/25 15:02 DC 01/24/25 13:28 1 GM Thiamine HCl 100 mg/Sodium Chloride 50 ml @ 100 mls/hr Q24H IV 01/23/25 14:00 01/25/25 14:29 DC 01/25/25 13:53 100 MLS/HR Vancomycin HCl (Vancomycin 750mg) 750 mg Q24H IVPB 01/23/25 17:00 01/23/25 10:56 DC Vancomycin HCl (Vancomycin Protocol) 1 each AD IV 01/22/25 15:00 01/23/25 10:56 DC Vasopressin 40 units/Sodium Chloride 40 ml @ 0 mls/hr PROTOCOL IV 01/25/25 09:30 02/24/25 09:29 Wound Care/ Dressing Products (Venelex Ointment) BID TP 01/25/25 21:00 01/25/25 15:58 DC DIAGNOSTICS / RADIOLOGY: [ ] PATIENT: JUSTIN KLINE MR#: [id number] : 1955 SEX: F AGE: 70 LOCATION: 2CH ORDER [id number] STATUS: ADM IN REPORT#: [id number] SERVICE 0912 REASON: pp ORDERING PHYSICIAN: RERE BLAIR PROCEDURE: CXR1VW - CHEST 1VW EXAM: CR Chest, 1 View. CLINICAL HISTORY: pp COMPARISON: 01/30 20:49 EDT CR - CHEST 1VW FINDINGS: Essentially stable since prior exam. ETT tip 4 cm above arminda. Left PICC tip in SVC. stable left perihilar and left basilar airspace disease and small left pleural effusion. Right lung remains relatively clear. Negative for pneumothorax. Heart size, pulmonary vascularity and mediastinum within normal limits. PLEURAL SPACES: No evidence of pleural effusion or pneumothorax. MEDIASTINUM: Cardiac size and mediastinal contours within normal limits. BONES: No aggressive appearing osseous lesion seen. IMPRESSION: Stable chest. Support lines and tubes appear appropriate position and stable. Stable left perihilar and left basilar airspace disease and small left pleural effusion. Right lung remains clear. /[place] DICTATED BY: RADHA BECERRA Jr., MD DATE: 01/31/251312 ELECTRONICALLY SIGNED BY: RADHA BECERRA Jr., MD DATE: 01/31/251312 ATIENT: JUSTIN KLINE MR#: [id number] : 1955 SEX: F AGE: 70 LOCATION: 2CH ORDER 1510 STATUS: ADM IN REPORT#: [id number] SERVICE [id number] REASON: HGB drop, assess for possible GI bleed ORDERING PHYSICIAN: KIRSTEN KRUSE MD PROCEDURE: GIBLEED - NM GI BLOOD LOSS IMAG Examination NM radiolabeled red blood cell study History Gastrointestinal bleeding Technique After IV administration of Tc-99m labeled red autologous blood cells, anterior projection images of the abdomen and pelvis were obtained dynamically for one hour. Findings Following administration of radiolabeled red blood cells, there is normal activity seen in cardiovascular and genitourinary structures, the liver and spleen. There is no evidence for extravasation of radiolabeled red blood cells during the examination. IMPRESSION: No evidence of gastrointestinal hemorrhage during the course of examination acquisition. /[place] DICTATED BY: RADHA BECERRA Jr., MD DATE: 01/25/251457 ELECTRONICALLY SIGNED BY: RADHA BECERRA Jr., MD DATE: 01/25/251457 PATIENT: JUSTIN KLINE MR#: [id number] : 1955 SEX: F AGE: 70 LOCATION: 2CH ORDER 1 STATUS: ADM IN REPORT#: [id number] SERVICE 1 REASON: UNRESPONSIVE ORDERING PHYSICIAN: RERE BLAIR PROCEDURE: HEAD WO - CT HEAD/BRAIN W/O CONTRAST EXAM: CT Head Without IV contrast. CLINICAL HISTORY: UNRESPONSIVE TECHNIQUE: Axial computed tomography images of the head/brain without intravenous contrast. COMPARISON: None provided. FINDINGS: BRAIN: There is diffuse cerebral atrophy, evidenced by prominence of the cortical sulci and ventricular system, compatible with age-related changes. There is evidence of chronic small vessel ischemic change characterized by bilateral periventricular and deep white matter hypodensities. Ill-defined hypodensity with loss of rodriguez-white matter interface in the right frontal and high parietal lobes concerning for a possible infarct. No evidence of acute hemorrhage. No mass lesion. No midline shift or extra-axial collections. VENTRICLES: No hydrocephalus. ORBITS: The orbits are unremarkable. SINUSES AND MASTOIDS: Mucosal thickening in bilateral sphenoidal sinuses. The rest of the Paranasal sinuses and mastoid air cells are clear. BONES: No fracture. SOFT TISSUES: Unremarkable. IMPRESSION: 1. Ill-defined hypodensity with loss of rodriguez-white matter interface in the right frontal and high parietal lobes concerning for possible infarct. Consider MRI 2. No acute intracranial hemorrhage. /[place] DICTATED BY: SELIN BURNS MD DATE: 01/31/251730 ELECTRONICALLY SIGNED BY: SELIN BURNS MD DATE: 01/31/25 173 PATIENT: JUSTIN KLINE MR#: [id number] : 1955 SEX: F AGE: 70 LOCATION: 2CH ORDER 34 STATUS: ADM IN REPORT#: [id number] SERVICE 133 REASON: UNRESPONSIVE ORDERING PHYSICIAN: RERE BLAIR PAC PROCEDURE: BRAIN WO - MR BRAIN WO CON EXAM: MR Brain with and without Intravenous Contrast. CLINICAL HISTORY: UNRESPONSIVE WHILE TRYING TO EXTUBATE TECHNIQUE: Multisequence, multiplanar magnetic resonance images acquired of the brain with and without intravenous contrast. CONTRAST: COMPARISON: None provided. FINDINGS: BRAIN: Ill-defined areas of hyperintensities in the subcortical white matter of the right frontal and parietal lobes without diffusion restriction. 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 Age-related cerebral and cerebellar atrophy. Diffuse T2-FLAIR hyperintensities along the periventricular white matter of bilateral fronto-parietal lobes are suggestive of chronic small vessel ischemia. No restricted diffusion to indicate acute infarction. No intracranial haemorrhage. No midline shift or extra-axial fluid collection. No cerebellar tonsillar ectopia. The central arterial and venous flow voids are patent. VENTRICLES: No hydrocephalus. ORBITS: The orbits are normal. Pseudophakic lens in the right orbit. SINUSES AND MASTOIDS: Fluid signal intensity in the bilateral sphenoid sinus. Fluid signal intensity in bilateral mastoid air cells is suggestive of mastoiditis. The rest of the sinuses are clear. BONES: No acute fracture or aggressively appearing osseous lesion. IMPRESSION: 1. 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 2. 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 3. Bilateral sphenoid sinusitis and mastoiditis. /[place] DICTATED BY: SELIN BURNS MD DATE: 02/01/251609 ELECTRONICALLY SIGNED BY: SELIN BURNS MD DATE: 02/01/251609 ASSESSMENT: Hematemesis POA Acute metabolic encephalopathy Cerebrovascular accident-chronic infarct as per MRI brain Hemorrhagic shock Acute complicated cystitis - ESBL Oliguria - urine output 0.03 mL/kg per hour (01/31/25) Acute hypoxic respiratory failure status post intubation for airway protection Peg tube placement Hyperammonemia Lactic acidosis Peptic ulcer disease DVT of bilateral upper limbs Starvation ketoacidosis Hypokalemia Hypophosphatemia Unstageable wound on sacrum Fecal impaction Obesity BMI 36.6 Knee injury versus underlying CKD Diabetes mellitus type 2 with associated hyperglycemia Severe hypoalbuminemia Hypertension Debility Small pericardial Effusion Left-sided pleural effusion PLAN: Hematemesis, peptic ulcer disease, POA - patient was admitted to ICU - in reference to hematemesis. H&H was trended q.4 hours. Type and screen was done. Plan is to keep hemoglobin above 7. On 01/25/2025 her hemoglobin was 5.9, we gave 1 PRBC. Repeat Hb is 7.4. - The patient was started on Protonix drip and octreotide drip. Critical care stopped her Protonix drip as she was fluid overloaded and they started protonix 40 mg b.i.d. - EGD done by Gastroenterology and have reported no active bleeding and clots in esophagus. - GI wanted to do another EGD, and colonoscopy showed no evidence of bleeding. - Bleeding scan showed no evidence of gastrointestinal hemorrhage. - gastroenterology recommended follow with them in 1 week after discharge. - Today her hemoglobin is 8.3 - We will continue to follow recommendations from critical Care and Gastroenterology. Acute hypoxic respiratory failure status post intubation for airway protection - critical care is on board and we will follow critical care recommendations r egarding ventilator and sedation protocol - currently on ACVC, TV 400, RR 14, Fio2 30%, PEEP 5. - On 01/27/2025, nurse told us that she will try to wake up the patient, extubate her and try spontaneous breathing trial. -The nurse tried to extubate her but she could not extubate as she is not waking up and she can't not protect her airway. Cerebrovascular accident - chronic infarct - CT scan of the brain on 01/31/2025 showed 1. Ill-defined hypodensity with loss of rodriguez-white matter interface in the right frontal and high parietal lobes concerning for possible infarct. No acute intracranial hemorrhage. - MRI brain showed Chronic infarct in the right frontal and parietal lobes. 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 Bilateral sphenoid sinusitis and mastoiditis. - Follow up with the Neurology recommendations. - For consistent hyperglycemia, Lantus was added and sliding scale insulin was adjusted. Hemorrhagic shock - patient was placed on ON LEVOPHED. Later on, She was taken off vasopressors support. - On 02/02, Levophed was restarted at 0.04 due to hypotension. - we will follow critical Care recommendations in managing hemorrhagic shock Oliguria - Patient's urine output on 01/31/2025 was 0.03 mL/kg per hour with Total urine output, 75 mL. - On 02/02/2025, total urine output is 150 mL - Patient's creatinine and BUN from today are 3.1 and 35 respectively. - Monitor input and output as well as electrolytes. - Avoid nephrotoxic drugs. - Evaluate patient for volume overload and fluid repletion. - Patient was given 500 mL lactated Ringer this morning. - Follow up with the Nephrology recommendations Acute metabolic encephalopathy, Hyperammonemia, lactic acidosis - Her ammonia levels from 01/31/2025 were 48. Lactulose p.o. was added on 02/01. - On 02/02, ammonia levels were again elevated 106. Lactulose MS has been added. - Follow up with ammonia levels in the morning. - On 02/02, lactic acid is elevated by 5. Repeat values showed 5.8. Patient's anion gap is also elevated. ABG showed pH 7.44, pCO2 19, HC03 12.9 - Patient has bicarb deficit for which sodium bicarbonate has been added to the medication regimen. - Follow up with the BMP q.6 H and trend lactic acid. - Follow up with the blood culture, urine culture, stool culture, respiratory culture to identify the suspected source of infection. Acute complicated cystitis - ESBL - Patient's urine culture came back positive for ESBL E coli - Patient was started on Zosyn q.8h and linezolid q.12h. - On 02/02, patient has been switched to Merrem and linezolid. DVT of bilateral upper limbs -US doppler of both upper limbs, results showed evidence of DVT. -Consulted gastroenterology for anticoagulation recommendations. They recommended to give high dose Protonix drip for 48 hours and carafate 1gm PO QID and after 48 hours start heparin drip. -Patient is not a candidate for SVC filter. -for supratherapeutic aPTT, heparin drip was held temporarily Starvation ketoacidosis Today her blood work show that sodium is 142, potassium is 2.8, chloride is 109, bicarbonate is 18. Her urinalysis from 01/24/2025 showed ketones in the urine. Unstageable wound on sacrum - we will request wound care -Wound care recommended to cleanse with normal saline, pat dry, apply medihoney, cover with allevyn, change daily and prnKeep wounds clean and dry , Offloading/reposition q 2 hours Hypokalemia Today her blood work showed that potassium is 4.4. She is being maintained on potassium replacement protocol Will repeat her labs tomorrow. Diabetes mellitus type 2 with associated hyperglycemia, Severe hypoalbuminemia, Hypertension, Debility, Small pericardial Effusion, Left-sided pleural effusion - echo showed no pericardial effusion, LVEF of 50-55% - continue insulin sliding scale. It was adjusted on 02/01 as per glucose levels. Lantus was also started. - continue thiamine supplementation - monitor vitals Q8 - monitor a.m. labs - nephrology was consulted and they recommended to discontinue vancomycin, obtain urine analysis and complete renal ultrasound. Patient was started on meropenem and linezolid on 02/02 -Repeated urinalysis, urine electrolytes, urine protein on 01/24/2025. Urinalysis showed turbid urine, protein >300, ketones 5, moderate occult blood, moderate leukocyte esterase, RBC 6 to 10, WBC is TNTC, protein 410.9, sodium is 43, potassium is 36, chloride is 40. GI prophylaxis: Pantoprazole ATTESTATION BY PHYSICIAN I have seen and examined the patient. I reviewed the documentation, medical decision making, and treatment plan as noted by the resident physician above. I agree with the findings and plan of care. VON ZAMORA MD, MUHAMMAD H MD Feb 02, 2025 14:11
[2025-02-02] MEDS: SODIUM BICARB 50MEQ 50ML VIAL IV SCH (15:02)
[2025-02-02 16:37] LABS: CREATININE 3.1 mg/dL (0.5-1.0); GLOMERULAR FILTR. RATE CALC 16.0 mL/min (>90); GLUCOSE,RANDOM 106.0 mg/dL (70-105); SODIUM SERUM 145.0 mmol/L (136-145); UREA NITROGEN, BLOOD 37.0 mg/dL (7-18)
--- NOTE | 2025-02-02 19:40 | PN ---
PROGRESS NOTE Date of Service: Feb 02, 2025 Time of Service: 19:39 SUBJECTIVE: Patient evaluated at bedside in room 217 for wound care follow up. Patient is intubated at this time. REVIEW OF SYSTEMS Unable to complete patient is intubated and sedated PHYSICAL EXAM EYES: Anicteric. Pupils equal and reactive. HENT: No oral thrush seen, moist Oral mucosa NECK: Supple, no JVD or thyromegaly. LUNGS: decreased breath sounds CARDIOVASCULAR: S1, S2 regular. No murmur heard. ABDOMEN: Soft, non tender, bowel sounds present, no organomegaly CENTRAL NERVOUS SYSTEM: intubated and sedated SKIN: Unstageable ulcer to left buttock noted with 100% slough with periwound erythema and unstageable ulcer to coccyx noted with 100% slough and periwound erythema LYMPHATICS: No peripheral lymphadenopathy MUSCULOSKELETAL: Right BKA EXTREMITIES: No cyanosis or clubbing BACK: No deformity GENITOURINARY: No dysuria or hematuria Vital Signs (last 8hr) Date Time Temp Pulse Resp B/P (MAP) Pulse Ox O2 Delivery O2 Flow Rate FiO2 02/02/25 18:41 114 30 02/02/25 18:30 118 27 138/55 (82) 100 30 02/02/25 18:15 108 28 112/61 (78) 99 30 02/02/25 18:00 107 26 110/33 (58) 98 30 02/02/25 17:45 107 22 82/29 (46) 99 30 02/02/25 17:30 108 20 110/63 (79) 99 30 02/02/25 17:30 30 02/02/25 17:15 109 27 119/49 (72) 99 30 02/02/25 17:00 108 24 111/32 (58) 99 30 02/02/25 16:45 100 21 103/26 (51) 99 30 02/02/25 16:30 108 22 91/39 (56) 99 30 02/02/25 16:15 109 22 122/35 (64) 99 30 02/02/25 16:00 99 Ventilator+ 30 30 02/02/25 16:00 98.1 02/02/25 16:00 98.1 114 22 93/56 (68) 90 30 02/02/25 15:45 114 23 98/65 (76) 100 30 02/02/25 15:30 111 24 108/53 (71) 99 30 02/02/25 15:15 110 23 101/57 (72) 100 30 02/02/25 15:00 113 23 105/54 (71) 100 30 02/02/25 14:57 110 30 02/02/25 14:45 110 25 124/39 (67) 100 30 02/02/25 14:30 111 26 107/52 (70) 100 30 02/02/25 14:15 110 28 104/48 (66) 100 30 02/02/25 14:00 106 26 104/51 (68) 100 30 02/02/25 13:45 109 24 102/51 (68) 99 30 02/02/25 13:30 30 02/02/25 13:30 110 16 99/50 (66) 98 30 02/02/25 13:15 108 29 109/49 (69) 96 30 02/02/25 13:00 107 28 113/48 (69) 99 30 02/02/25 12:45 109 23 128/48 (74) 99 30 02/02/25 12:30 110 23 122/43 (69) 99 30 02/02/25 12:15 111 27 143/45 (77) 99 30 02/02/25 12:00 98.1 110 19 132/43 (72) 98 30 02/02/25 12:00 98 Ventilator+ 30 30 02/02/25 11:56 97.9 02/02/25 11:45 115 27 130/50 (76) 99 30 LABS: Laboratory: Test 02/02/25 17:27 02/02/25 16:12 02/02/25 10:30 02/02/25 10:07 Range/Units Whole Blood Glucose 89 # 70-110 MG/DL Sodium Level 145 136-145 mmol/L Potassium Level 3.8 3.5-5.1 mmol/L Chloride Level 108 101-111 mmol/L Carbon Dioxide Level 19 L 21-32 mmol/L Blood Urea Nitrogen 37 H 7-18 mg/dL Creatinine 3.1 H 0.5-1.0 mg/dL Glomerular Filtration Rate Calc 16 >90 mL/min Random Glucose 106 H 70-105 mg/dL Lactic Acid Level 5.3 H 0.8-2.5 mmol/L Total Calcium 8.7 8.5-10.1 mg/dL Urine Color YELLOW YELLOW Urine Appearance TURBID CLEAR Urine pH 5.5 5.0-8.0 Urine Specific [place] 1.030 1.001-1.031 Urine Protein 100 H NEGATIVE mg/dL Urine Glucose (UA) NEGATIVE NEGATIVE mg/dL Urine Ketones NEGATIVE NEGATIVE mg/dL Urine Occult Blood MODERATE H NEGATIVE Urine Nitrate NEGATIVE NEGATIVE Urine Bilirubin NEGATIVE NEGATIVE mg/dL Urine Urobilinogen 0.2 0.2-1.0 mg/dL Urine Leukocyte Esterase 500 H NEGATIVE Sunitha/uL Urine RBC 26-50 H 0-1 /HPF Urine WBC TNTC H 0-1 /HPF Urine WBC Clumps (Auto) MANY 0-1 /HPF Urine Squamous Epithelial Cells MANY 0-2 /HPF Urine Non-Squamous Epithelial Cells 2-5 0-2 /HPF Urine Calcium Oxalate Crystals MANY None Seen /LPF Urine Other Crystals (Auto) 37 None Seen /HPF Urine Amorphous Crystals (Auto) RARE None Seen /LPF Urine Bacteria MOD None Seen /HPF Urine Other Casts 14 None Seen /LPF Urine Yeast MANY None Seen /HPF Urine Yeast with Hyphae MANY None Seen /HPF Blood Gas Specimen Type Venous Arterial Blood Oxygen Saturation 73.3 L 94.0-98.0 % Venous Blood pH 7.474 H 7.320-7.430 Venous Blood pCO2 at Patient Temp 22 L 38-54 Venous Blood pO2 at Patient Temp 35.3 23.0-48.0 mmHg Venous Blood HCO3 15.9 L 22.0-29.0 Venous Blood Base Excess -6.4 L -2.0-3.0 Venous Blood Total Hemoglobin 9.2 L 12.0-16.0 Sodium (Blood Gas) 139 136-145 MMOL/L Bedside Potassium (Blood Gas) 3.8 3.4-4.5 MMOL/L Bedside Chloride (Blood Gas) 110 H 98-107 MMOL/L Bedside Glucose (Blood Gas) 185 H 65-95 MG/DL Bedside Ionized Calcium (Blood Gas) 1.18 1.15-1.33 MMOL/L Bedside Lactic Acid (Blood Gas) 6.19 *H 0.36-0.75 MMOL/L Blood Gas Temperature 37.0 35.5-37.0 CELSIUS Blood Gas Respiration Rate 20.0 min. Blood Gas Vent Mode AC-VC ROOM AIR FiO2 30.0 % Blood Gas Tidal Volume 400 ml Blood Gas PEEP 6 cm H2O Blood Gas Specimen Comment MADISON PAIGE Test 02/02/25 09:50 02/02/25 08:10 02/02/25 05:05 02/02/25 04:23 Range/Units Whole Blood Ketones Quantitative < 0.1 0.0-0.6 mmol/L Activated Partial Thromboplast Time 47.6 H 26.3-35.5 SEC White Blood Count 9.6 4.8-10.8 K/uL Red Blood Count 2.79 L 4.00-5.50 MIL/uL Hemoglobin 8.3 L 12.0-16.0 g/dL Hematocrit 24.5 L 36-48 % Mean Corpuscular Volume 87.8 79-99 fL Mean Corpuscular Hemoglobin 29.7 27.0-33.0 pg Mean Corpuscular Hemoglobin Concent 33.9 32.0-36.0 g/dL Red Cell Distribution Width 19.4 H 11.0-15.5 % Platelet Count 166 130-400 K/uL Mean Platelet Volume 11.1 H 7.5-10.5 fL Immature Granulocyte % (Auto) 0.4 0-1 % Neutrophils (%) (Auto) 90.5 H 40.0-77.0 % Lymphocytes (%) (Auto) 5.7 L 21.0-51.0 % Monocytes (%) (Auto) 2.9 L 3.0-13.0 % Eosinophils (%) (Auto) 0.4 0.0-8.0 % Basophils (%) (Auto) 0.1 0.0-5.0 % Neutrophils # (Auto) 8.7 H 1.8-7.7 K/uL Lymphocytes # (Auto) 0.6 L 1.0-4.8 K/uL Monocytes # (Auto) 0.3 0.1-1.0 K/uL Eosinophils # (Auto) 0.04 0.00-0.70 K/uL Basophils # (Auto) 0.01 0.00-0.20 K/uL Absolute Immature Granulocyte (auto 0.04 0-1 K/uL Nucleated Red Blood Cells 3.4 H 0.0-0.19 % White Cell Morphology Comment See comments Phosphorus Level 2.2 L 2.5-4.9 mg/dL Magnesium Level 1.90 1.80-2.40 mg/dL Total Bilirubin 0.3 0.2-1.0 mg/dL Aspartate Amino Transf (AST/SGOT) 37 10-37 U/L Alanine Aminotransferase (ALT/SGPT) 11 L 12-78 U/L Alkaline Phosphatase 779 *H 50-136 U/L Ammonia 106 H 11-32 umol/L Total Protein 5.1 L 6.0-8.3 g/dL Albumin 0.8 L 3.5-5.0 g/dL Arterial Blood pH 7.448 7.350-7.450 Arterial Blood Partial Pressure CO2 19 *L 32-45 mmHg Arterial Blood Partial Pressure O2 81.7 L 83.0-108.0 mmHg Arterial Blood HCO3 12.9 L 21.0-28.0 mmol/L Arterial Blood Base Excess -8.3 L -2.0-3.0 mmol/L Test 02/01/25 08:10 Range/Units Prothrombin Time 12.9 H 9.6-11.6 SEC Prothromb Time International Ratio 1.24 H 0.85-1.15 PROBLEM LIST / PLAN: Ms Wilhelm is a patient with chronic kidney disease presenting with altered mental status and recent history of hypotension requiring pressors. Altered metabolic encephalopathy Assessment: Patient is currently minimally responsive, showing slight improvement from previous state. Recent history of hypotension with systolic blood pressure dropping to 80s, requiring pressor support which was discontinued 2 days ago. Differential diagnoses include metabolic encephalopathy secondary to CKD, medication effect, or possible intracranial pathology. An MRI of the brain was ordered to further evaluate the etiology of altered mental status. Plan: - Proceed with previously ordered MRI of the brain - Continue to monitor mental status and level of consciousness - Reassess after MRI results are available Chronic Kidney Disease Assessment: Patient has a known history of chronic kidney disease. This may be contributing to her current altered mental status, potentially through uremic encephalopathy or medication effects. Plan: - Continue current management of CKD - Monitor renal function Recent Hypotension Assessment: Patient experienced hypotension 3-4 days ago, with systolic blood pressure dropping to the 80s. Pressor support was required and was discontinued 2 days ago. Current blood pressure appears to be stable without pressor support. Plan: - Continue to monitor vital signs, including blood pressure - Assess for any recurrence of hypotension Thank you for your consultation JAKI BLACKMONP Feb 02, 2025 19:40
[2025-02-02] MEDS: SUCRALFATE 1 GM TABLET PO SCH (20:33)
--- NOTE | 2025-02-02 22:32 | HMCSR ---
APPROVED REPORT EXAM: Two-dimensional and M-mode echocardiogram with Doppler and color Doppler. INDICATION ICD: Suspected Cardiogenic Shock R57.0 2D Dimensions RVDd3.1 cmLVEF(%)71.3 (>50%)LVED Vol(simp.)33.0 mL IVSd1.4 (0.7-1.1cm)FS(%)39 %LVES Vol(simp.)10.0 mL LVDd2.9 (3.8-5.6cm)LA (2D)2.7 (1.6-4.0cm)LVEF(%, simp.)69 % PWd1.4 (0.7-1.1cm)Ao Root(2D)3.0 (2.0-3.7cm)LA ESV INDEX (BP)21.64 mL/m2 IVSs1.3 cmLVOT diam2.0 (1.8-2.4cm) LVDs1.7 (2.5-4.0cm) PWs1.6 cm Deformation Strain Apical 4-16.3 % Apical 2-13.5 % Apical 3-15.0 % Global Strain-14.9 % M-Mode Dimensions EPSS0.5 cm LA (MM)2.8 (1.6-4.0cm) Ao Root(MM)3.2 (2.0-3.7cm) Aortic Valve AoV Vmax1.8 m/Trice Peak GR12.6 mmHgLVOT Vmax1.5 m/s AoV VTI0.3 mAo Mean GR7.4 mmHgLVOT VTI0.24 m YASMEEN (VMAX)2.72 cm2AVA (VTI) 2.9 cm2 Mitral Valve MV E Vmax53.1 cm/sDECEL Time76 ms MV A Vmax87.7 cm/sP 1/2 T20 ms E/A ratio0.6MVA (PHT)11.0 cm2 TDI E/E' Medial9.7E/E' Lateral8.2 Medial E' Peak V5.48 cm/sLateral E' Peak V6.50 cm/s Pulmonary Valve PV Vmax1.5 m/sPV VTI0.22 mPV Mean GR5.1 mmHg PV Peak GR8.9 mmHg Tricuspid Valve TR Vmax2.8 m/sRAP (EST) 3 nwOuGMPS52.5 mmHg TR Peak GR34.5 mmHg Left Ventricle Left ventricular cavity is small. GLS -15.0% There is normal LV segmental wall motion. Moderate michelle ntric left ventricular hypertrophy. The LVEF is > 70%. Indeterminate diastolic function. Right Ventricle The right ventricle is normal size. The right ventricular systolic function is normal. Atria The left atrium size is normal. The right atrium is small in size. Aortic Valve The aortic valve is opens well. No aortic regurgitation is present. There is no aortic valvular steno sis. Mitral Valve The mitral valve is normal in structure. There is mild mitral valve regurgitation noted. Small mobile vegetation seen attached on the anterior mitral valve annulus measuring 1.2cm x 1.0cm There is no mi tral valve stenosis. Tricuspid Valve The tricuspid valve is normal in structure. There is mild tricuspid valve regurgitation noted. Pulmonic Valve The pulmonary valve is normal in structure. There is no pulmonic valvular regurgitation. Great Vessels The aortic root is normal in size. The IVC is small in size and collapses >50% with inspiration. Pericardium There is no pericardial effusion. Other Information Quality : Technically difficult study due to body habitus pt currently intubatedRhythm : Tachycardia Conclusion The LVEF is > 70%. Moderate concentric left ventricular hypertrophy.
[2025-02-02 22:44] LABS: CREATININE 3.1 mg/dL (0.5-1.0); GLOMERULAR FILTR. RATE CALC 16.0 mL/min (>90); SODIUM SERUM 145.0 mmol/L (136-145); UREA NITROGEN, BLOOD 37.0 mg/dL (7-18)
[2025-02-02 23:10] LABS: GLUCOSE,RANDOM 47.0 mg/dL (70-105)
[2025-02-02] MEDS: DEXTROSE 50%-WATER 50 ML DISP.SYRIN IV PRN (23:21)
[2025-02-03] VITALS (97 sets, daily range): BP systolic 73–136; BP diastolic 42–90; PULSE 96–124; RESP 17–36; TEMP 99–99.4; O2SAT 95–100
[2025-02-03 03:14] LABS: ABG BASE EXCESS -2.9 mmol/L (-2.0-3.0); ABG HCO3 18.2 mmol/L (21.0-28.0); ABG OXYGEN SATURATION 98.5 % (94.0-98.0); ABG PCO2 24 mmHg (32-45); ABG PH 7.500 (7.350-7.450); DEVICE COMMENT LR RN; PO2, ARTERIAL BG 110.1 mmHg (83.0-108.0); TEMPERATURE, CELSIUS BG 37.0 CELSIUS (35.5-37.0); VENT MODE, BG AC (ROOM AIR)
[2025-02-03 03:53] LABS: INR 1.31 (0.85-1.15)
[2025-02-03 04:01] LABS: CREATININE 3.2 mg/dL (0.5-1.0); GLOMERULAR FILTR. RATE CALC 15.0 mL/min (>90); GLUCOSE,RANDOM 66.0 mg/dL (70-105); PHOSPHORUS 2.6 mg/dL (2.5-4.9); SODIUM SERUM 147.0 mmol/L (136-145); UREA NITROGEN, BLOOD 41.0 mg/dL (7-18)
[2025-02-03 04:34] LABS: IMMATURE GRANULOCYTE ABSOLUTE 0.16 K/uL (0-1); NUCLEATED RED BLOOD CELLS 1.5 % (0.0-0.19); PLATELET COUNT (AUTO) 117 K/uL (130-400); RED BLOOD CELL COUNT(AUTO) 2.28 MIL/uL (4.00-5.50); RED CELL DISTRIBUTION WIDTH 19.1 % (11.0-15.5); WHITE BLOOD COUNT (AUTO) 19.2 K/uL (4.8-10.8)
--- NOTE | 2025-02-03 07:09 | HMCIMG ---
EXAM: CR Chest, single view. CLINICAL HISTORY: ET. Intubated COMPARISON: Prior chest radiograph dated February 02, 2025. FINDINGS: The endotracheal tube is identified approximately 3.9 cm from the arminda. Mild cardiomegaly with bilateral pulmonary congestion. Mild left-sided pleural effusion with adjacent lung atelectasis. Infiltrates in the right parahilar region and lower lobe. No evidence of pneumothorax. Atherosclerotic calcification of the aortic arch. No acute osseous abnormality. IMPRESSION: The endotracheal tube is identified approximately 3.9 cm from the arminda. Mild cardiomegaly with bilateral pulmonary congestion. Mild left-sided pleural effusion with adjacent lung atelectasis. Infiltrates in the right parahilar region and lower lobe. No evidence of pneumothorax. Compared to the prior study, there is interval development of infiltrates in the right lower lobe. /[place]
[2025-02-03] MEDS: SODIUM BICARB 50MEQ 50ML VIAL IV ONE (09:52)
--- NOTE | 2025-02-03 10:16 | PN ---
[facility] PROGRESS NOTE Date Patient Seen: Feb 03, 2025 Time of Visit: 10:16 Supervising Physician: Isidro Jama MD Primary Care Physician: NANDO HUYNH Outpatient Specialists: [ ] Inpatient Consults: DR RAMOS, DR HEAD, DR SIMENTAL Assessment: Acute metabolic encephalopathy Refractory shocK septic and Hemorrhagic Small mobile vegetation seen attached on the anterior mitral valve annulus measuring 1.2cm x 1.0cm on 2 D echo 02/02/25 Rule out endocarditis-pending Blood cultures Mild Pulm HTN RVSP 37.5mmHg Acute complicated cystitis - ESBL to urine Acute hypoxemic respiratory failure (intubated) Intractable metabolic acidosis Deep vein thrombosis in the right subclavian and axillary veins and Right basilic vein thrombosis. 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 Unstageable wound on sacrum Chronic infarct in the right frontal and parietal lobes. on MRI Brain 02/02/25 Right BKA INTERVAL HISTORY: Patient in multiorgan dysfunction syndrome (MODS) with ongoing respiratory failure requiring mechanical ventilation and circulatory failure requiring Omega gtt infusion for blood pressure support. Worsening lactic acidosis noted on serial labs, indicating ongoing tissue hypoperfusion. Renal failure with creatinine 3.5 mg/dL and oliguria ; not a dialysis candidate per nephrology. Pulmonary edema present, likely secondary to fluid overload and critical illness. Pt is still critical on Omega gtt for blood pressure support and vented. She is pending to receive 1 unit of blood for a drop in Hgb. to 6.8, She has been receiving pushes of sodium bicarb and latest serum co2 of 19. she has been having episodes of hypoglycemia. Stopped Insulin drip. Patient appears critically ill, edematous, and in poor overall condition with limited physiological reserve. Per chart review and family discussion, the patient had a poor baseline quality of life prior to this admission, with PEG tube dependence and prior right lower extremity amputation. REVIEW OF SYSTEMS: Unable to obtain due to patient's intubated PHYSICAL EXAM: GENERAL: Critically ill intubated and sedated. HEENT: Sclera non icteric, dry mucosa NECK: Supple, no JVD, trachea midline LUNGS: Clear breath sounds bilaterally. No wheezes HEART: Regular rate and rhythm. Normal S1 and S2, without murmurs ABD: Abdomen soft, nontender. Bowel sounds present EXT: No clubbing cyanosis or edema, history of right BKA NEURO: Intubated and sedated Vital Signs (last 8hr) Date Time Temp Pulse Resp B/P (MAP) Pulse Ox O2 Delivery O2 Flow Rate FiO2 02/03/25 09:49 103 30 02/03/25 06:30 110 30 02/03/25 06:13 99.0 02/03/25 06:00 30 02/03/25 05:45 117 26 107/72 (84) 99 02/03/25 05:30 115 23 113/59 (77) 99 02/03/25 05:15 108 26 130/78 (95) 98 02/03/25 05:00 106 23 103/62 (76) 98 02/03/25 04:45 111 29 111/63 (79) 98 02/03/25 04:30 110 26 99/56 (70) 98 02/03/25 04:15 107 24 90/53 (65) 98 02/03/25 04:00 105 27 86/48 (61) 98 02/03/25 04:00 99 Ventilator+ 30 30 02/03/25 03:45 107 27 103/51 (68) 98 02/03/25 03:30 110 26 101/44 (63) 98 02/03/25 03:15 109 20 77/42 (54) 98 02/03/25 03:08 115 30 02/03/25 03:00 111 29 93/55 (68) 98 02/03/25 02:45 110 20 92/46 (61) 99 02/03/25 02:30 109 26 118/67 (84) 99 LABS: Hematology Labs: Test 02/03/25 04:22 02/02/25 05:05 Range/Units White Blood Count 19.2 #H 4.8-10.8 K/uL Red Blood Count 2.28 L 4.00-5.50 MIL/uL Hemoglobin 6.8 *L 12.0-16.0 g/dL Hematocrit 20.0 *L 36-48 % Mean Corpuscular Volume 87.7 79-99 fL Mean Corpuscular Hemoglobin 29.8 27.0-33.0 pg Mean Corpuscular Hemoglobin Concent 34.0 32.0-36.0 g/dL Red Cell Distribution Width 19.1 H 11.0-15.5 % Platelet Count 117 #L 130-400 K/uL Mean Platelet Volume 11.8 H 7.5-10.5 fL Immature Granulocyte % (Auto) 0.8 0-1 % Neutrophils (%) (Auto) 90.3 H 40.0-77.0 % Lymphocytes (%) (Auto) 5.1 L 21.0-51.0 % Monocytes (%) (Auto) 3.2 3.0-13.0 % Eosinophils (%) (Auto) 0.3 0.0-8.0 % Basophils (%) (Auto) 0.3 0.0-5.0 % Neutrophils # (Auto) 17.3 H 1.8-7.7 K/uL Lymphocytes # (Auto) 1.0 1.0-4.8 K/uL Monocytes # (Auto) 0.6 0.1-1.0 K/uL Eosinophils # (Auto) 0.05 0.00-0.70 K/uL Basophils # (Auto) 0.06 0.00-0.20 K/uL Absolute Immature Granulocyte (auto 0.16 0-1 K/uL Nucleated Red Blood Cells 1.5 H 0.0-0.19 % White Cell Morphology Comment See comments Chemistry Labs: Test 02/03/25 09:27 02/03/25 08:30 02/03/25 03:32 02/02/25 23:15 Range/Units Whole Blood Glucose 76 70-110 MG/DL Lactic Acid Level 9.2 H 0.8-2.5 mmol/L Sodium Level 147 H 136-145 mmol/L Potassium Level 3.8 3.5-5.1 mmol/L Chloride Level 110 101-111 mmol/L Carbon Dioxide Level 19 L 21-32 mmol/L Blood Urea Nitrogen 41 H 7-18 mg/dL Creatinine 3.2 H 0.5-1.0 mg/dL Glomerular Filtration Rate Calc 15 >90 mL/min Random Glucose 66 L 70-105 mg/dL Total Calcium 8.6 8.5-10.1 mg/dL Phosphorus Level 2.6 2.5-4.9 mg/dL Magnesium Level 1.90 1.80-2.40 mg/dL Ammonia 58 #H 11-32 umol/L C-Reactive Protein, Quantitative 198.20 H 0.5-3.0 mg/L Bedside Glucose Comment Protocol Initiated Test 02/02/25 09:50 02/02/25 05:05 Range/Units Whole Blood Ketones Quantitative < 0.1 0.0-0.6 mmol/L Total Bilirubin 0.3 0.2-1.0 mg/dL Aspartate Amino Transf (AST/SGOT) 37 10-37 U/L Alanine Aminotransferase (ALT/SGPT) 11 L 12-78 U/L Alkaline Phosphatase 779 *H 50-136 U/L Total Protein 5.1 L 6.0-8.3 g/dL Albumin 0.8 L 3.5-5.0 g/dL Coagulation Labs: Test 02/03/25 03:32 Range/Units Prothrombin Time 13.5 H 9.6-11.6 SEC Prothromb Time International Ratio 1.31 H 0.85-1.15 Activated Partial Thromboplast Time 56.1 H 26.3-35.5 SEC DIAGNOSTICS / RADIOLOGY RESULTS: [address] [address] IMAGING REPORT Signed PATIENT: JUSTIN KLINE MR#: [id number] : 1955 SEX: F AGE: 70 LOCATION: [facility] ORDER 2300 STATUS: ADM IN REPORT#: [id number] SERVICE 0600 REASON: intubated ORDERING PHYSICIAN: KARL RODRIGUEZ PROCEDURE: CXR1VW - CHEST 1VW EXAM: CR Chest, single view. CLINICAL HISTORY: ET. Intubated COMPARISON: Prior chest radiograph dated February 02, 2025. FINDINGS: The endotracheal tube is identified approximately 3.9 cm from the arminda. Mild cardiomegaly with bilateral pulmonary congestion. Mild left-sided pleural effusion with adjacent lung atelectasis. Infiltrates in the right parahilar region and lower lobe. No evidence of pneumothorax. Atherosclerotic calcification of the aortic arch. No acute osseous abnormality. IMPRESSION: The endotracheal tube is identified approximately 3.9 cm from the arminda. Mild cardiomegaly with bilateral pulmonary congestion. Mild left-sided pleural effusion with adjacent lung atelectasis. Infiltrates in the right parahilar region and lower lobe. No evidence of pneumothorax. Compared to the prior study, there is interval development of infiltrates in the right lower lobe. /Antonito DICTATED BY: RADHA BECERRA Jr., MD DATE: 02/03/25808 ELECTRONICALLY SIGNED BY: RADHA BECERRA Jr., MD DATE: 02/03/[address] [address] IMAGING REPORT Signed PATIENT: JUSTIN KLINE MR#: [id number] : 1955 SEX: F AGE: 70 LOCATION: [facility] ORDER 7 STATUS: ADM IN REPORT#: [id number] SERVICE 4 REASON: suspected cardiogenic shock ORDERING PHYSICIAN: KARL RODRIGUEZ PROCEDURE: ECHO CMP - ECHO 2-D COMPLETE APPROVED REPORT EXAM: Two-dimensional and M-mode echocardiogram with Doppler and color Doppler. INDICATION ICD: Suspected Cardiogenic Shock R57.0 2D Dimensions RVDd 3.1 cm LVEF(%) 71.3 (>50%) LVED Vol(simp.) 33.0 mL IVSd 1.4 (0.7-1.1cm) FS(%) 39 % LVES Vol(simp.) 10.0 mL LVDd 2.9 (3.8-5.6cm) LA (2D) 2.7 (1.6-4.0cm) LVEF(%, simp.) 69 % PWd 1.4 (0.7-1.1cm) Ao Root(2D) 3.0 (2.0-3.7cm) LA ESV INDEX (BP) 21.64 mL/m2 IVSs 1.3 cm LVOT diam 2.0 (1.8-2.4cm) LVDs 1.7 (2.5-4.0cm) PWs 1.6 cm Deformation Strain Apical 4 -16.3 % Apical 2 -13.5 % Apical 3 -15.0 % Global Strain -14.9 % M-Mode Dimensions EPSS 0.5 cm LA (MM) 2.8 (1.6-4.0cm) Ao Root(MM) 3.2 (2.0-3.7cm) Aortic Valve AoV Vmax 1.8 m/s Ao Peak GR 12.6 mmHg LVOT Vmax 1.5 m/s AoV VTI 0.3 m Ao Mean GR 7.4 mmHg LVOT VTI 0.24 m YASMEEN (VMAX) 2.72 cm2 YASMEEN (VTI) 2.9 cm2 Mitral Valve MV E Vmax 53.1 cm/s DECEL Time 76 ms MV A Vmax 87.7 cm/s P 1/2 T 20 ms E/A ratio 0.6 MVA (PHT) 11.0 cm2 TDI E/E' Medial 9.7 E/E' Lateral 8.2 Medial E' Peak V 5.48 cm/s Lateral E' Peak V 6.50 cm/s Pulmonary Valve PV Vmax 1.5 m/s PV VTI 0.22 m PV Mean GR 5.1 mmHg PV Peak GR 8.9 mmHg Tricuspid Valve TR Vmax 2.8 m/s RAP (EST) 3 mmHg RVSP 37.5 mmHg TR Peak GR 34.5 mmHg Left Ventricle Left ventricular cavity is small. GLS -15.0% There is normal LV segmental wall motion. Moderate concentric left ventricular hypertrophy. The LVEF is > 70%. Indeterminate diastolic function. Right Ventricle The right ventricle is normal size. The right ventricular systolic function is normal. Atria The left atrium size is normal. The right atrium is small in size. Aortic Valve The aortic valve is opens well. No aortic regurgitation is present. There is no aortic valvular stenosis. Mitral Valve The mitral valve is normal in structure. There is mild mitral valve regurgitation noted. Small mobile vegetation seen attached on the anterior mitral valve annulus measuring 1.2cm x 1.0cm There is no mitral valve stenosis. Tricuspid Valve The tricuspid valve is normal in structure. There is mild tricuspid valve regurgitation noted. Pulmonic Valve The pulmonary valve is normal in structure. There is no pulmonic valvular reg urgitation. Great Vessels The aortic root is normal in size. The IVC is small in size and collapses >50% with inspiration. Pericardium There is no pericardial effusion. Other Information Quality : Technically difficult study due to body habitus pt currently intubated Rhythm : Tachycardia Conclusion The LVEF is > 70%. Moderate concentric left ventricular hypertrophy. DICTATED BY: LISBET MTZ MD DATE: 02/02/25926 ELECTRONICALLY SIGNED BY: LISBET MTZ MD DATE: 02/02/252231 PLAN Continue full ICU-level care with ventilatory and hemodynamic support. Ongoing discussion with family regarding poor prognosis and goals of care. Omega gtt for Hypotension mainatin MAP > 65 Recommend palliative care consult for further support and discussion of comfort- focused approach if consistent with family wishes. Continue trending lactate and urine output; reassess need for further escalation. Chest x-ray in a.m. Following hemoglobin and transfusing as needed Stop Heparin gtt due to acute anemia Following cultures, antibiotics continue tube feedings continue IV abx Follow nephrology recommendation-Per nephrology no need for HD at this time. NEURO: Minimize central acting medications as possible. Fall Precautions. Well lighted room through the day and minimize interruptions through the night to prevent acute delirium. PULMONARY: Supplemental 02 as needed Titrate Fio2 to keep Spo2 > or = 90% DuoNebs and CPT as needed IS hourly while awake for pulmonary hygiene Out of bed to chair as tolerated VAP Bundle abg and chest xe in am Vent settings ACVC Tv 400, RR 18. Fio2 30% and PEEP 6 CARDIOVASCULAR: Follow hemodynamics. Titrate vasopressor to keep MAP >65 or systolic blood pressure >95mmHg Drips: Omega gtt LINES: Left upper extremity PICC line GI & NUTRITION: Continue nutritional support Aspirations precautions Prokinetic agents and laxatives as needed continue tube feedings. KIDNEYS & ELECTROLYTES: Strict monitoring of intake and output Daily weights Avoid nephrotoxic agents Monitor electrolytes and replace as needed Goal urine output of 30mL/hr or 0.5mL/kg/hr Urine output: [ ] Fluid Balance: [ ] ENDOCRINE: Maintain blood glucose between 100-180 at all times. Insulin sliding scale for blood glucose management INFECTIOUS DISEASE: Trend temperature. Leonard-culture if febrile. HEMATOLOGY & COAGULATION: Monitor H&H. Keep Hgb > 7 Transfuse 1 unit of PRBC for Hgb < 7 Transfuse 1 pack of platelets of platelets < 20, 000 Watch for any signs and symptoms of bleeding SKIN: Pressure ulcer prevention per facility protocol Rehab: PT/OT Prophylaxis: GI: Protonix 40 mg b.i.d. DVT: SCD Code Status: Full Resuscitation Disposition: [ ICU Total critical care time: 45 minutes Case was discussed and seen with my supervising physician. The above plan was formulated and agreed upon. ATTESTATION BY PHYSICIAN I attest that I reviewed and discussed the case with the Physician Vertical Lathe Operator as well as agree with the Physician Vertical Lathe Operator's findings, plans of care, and documentation above. Isidro Bailey MD, [facility] Feb 03, 2025 10:16
--- NOTE | 2025-02-03 12:55 | PN ---
NEPHROLOGY PROGRESS NOTE Date/Time Patient Seen: Feb 03, 2025 SUBJECTIVE: This is a 70-year-old female with past medical history of diabetes mellitus type 2, hypertension, anemia, history of CVA, history of right below-knee amputation, chronic kidney disease with prior history of dialysis She presented to the hospital secondary to hematemesis. Patient is currently intubated and sedated. Most information was obtained from chart review. bedside nurse, and family due to patient's condition She has a history of peptic ulcer disease. She continues to require vasopressors to maintain blood pressure. Continues to be intubated She was noted to have elevated BUN/creatinine. Continues on antibiotics We are consulted for renal failure Renal function remains elevated Electrolytes are stable Urine output noted. Hemoglobin today was 6.8 g/dL, pending PRBC S/P multiple PRBCs transfusion Continues on weekly Epogen Imaging studies were noted Neurology was consulted due to deteriorating neurological status Code status has been changed to DNR She was seen in the ICU, intubated Family at the bedside Condition is critical and guarded REVIEW OF SYSTEMS: Difficult to obtain given status of the patient who remains intubated mechanically ventilated Vital Signs (last 8hr) Date Time Temp Pulse Resp B/P (MAP) Pulse Ox O2 Delivery O2 Flow Rate FiO2 02/03/25 11:16 108 30 02/03/25 09:49 103 30 02/03/25 06:30 110 30 02/03/25 06:13 99.0 02/03/25 06:00 30 02/03/25 05:45 117 26 107/72 (84) 99 02/03/25 05:30 115 23 113/59 (77) 99 02/03/25 05:15 108 26 130/78 (95) 98 02/03/25 05:00 106 23 103/62 (76) 98 PHYSICAL EXAM: General: acutely ill, sedated, intubated, and mechanically ventilated HEENT: head is atraumatic, pupils equal and reactive, ET tube in place Neck: supple, no masses, no lymphadenopathy, no thyromegaly, no JVD Lungs: decreased breath sounds bilaterally, symmetrical chest movement Cardio: regular rate, S1 and S2 normal, no rub or gallop Abdomen: soft, non tender, no distension, no organomegaly Extremities: trace edema bilateral lower extremities, no cyanosis or clubbing Skin: no rashes or suspicious lesions Neuro: sedated Current Medications Medications (Trade) Dose Ordered Sig/Arik Route Start Time Stop Time Status Last Admin Dose Admin Albumin Human 50 ml @ 0 mls/hr Q8H6 IV 01/24/25 14:00 01/24/25 22:00 Artificial Tears (Artificial Tears) 1 DROP OR AD Q8H OU 01/23/25 19:30 02/22/25 19:29 01/24/25 12:13 1 DROP Cefepime HCl (MAXipime 2 gm vial) 2 gm Q24H IVPB 01/23/25 12:00 02/02/25 11:59 01/24/25 12:13 2 GM Ceftriaxone Sodium (ROCEphine 1G INJ) 1 gm Q24H IVPB 01/22/25 12:00 01/22/25 16:25 DC 01/22/25 14:18 1 GM Chlorhexidine Gluconate (Peridex) 15 ml TID MM 01/23/25 21:00 02/06/25 20:59 01/24/25 09:15 15 ML Fentanyl Citrate 100 ml @ 2.5 mls/hr PROTOCOL IV 01/22/25 12:00 01/22/25 11:55 DC Fentanyl Citrate 100 ml @ 2.5 mls/hr PROTOCOL IV 01/22/25 12:00 01/29/25 11:59 01/24/25 06:59 2.5 MLS/HR Insulin Human Regular (humuLIN R 100 UNIT/ML 3ML) INSULIN SLIDING SCAL... ACHS SQ 01/22/25 21:00 02/21/25 20:59 01/23/25 12:20 2 UNIT Levetiracetam (kepPRA 500 MG TABLET) 500 mg BID PO 01/22/25 21:00 01/22/25 22:13 DC Levetiracetam 500 mg/Sodium Chloride 100 ml @ 400 mls/hr Q12H9 IV 01/22/25 22:00 02/21/25 21:59 01/24/25 09:17 400 MLS/HR Levothyroxine Sodium (SYNTHroid VIAL 100MCG) 100 mcg SYN IV 01/23/25 06:30 02/22/25 06:29 01/24/25 05:34 100 MCG Linezolid 300 ml @ 150 mls/hr Q12H IV 01/24/25 08:00 02/03/25 07:59 01/24/25 09:15 150 MLS/HR Metronidazole/ Sodium Chloride 100 ml @ 100 mls/hr Q8H6 IVPB 01/22/25 22:00 02/01/25 21:59 01/24/25 05:34 100 MLS/HR Midazolam HCl 50 ml @ 0 mls/hr PROTOCOL IV 01/22/25 12:00 01/29/25 11:59 01/22/25 20:51 1 MLS/HR Norepinephrine 250 ml @ 0 mls/hr PROTOCOL IV 01/22/25 10:00 01/23/25 09:52 DC 01/22/25 14:24 60 MLS/HR Norepinephrine Bitartrate (Norepineph 16 Mg/250ml NS Premix) per protocol PROTOCOL IV 01/23/25 10:00 02/22/25 09:59 01/23/25 23:50 16 MG Octreotide Acetate 1250 mcg/ Sodium Chloride 250 ml @ 0 mls/hr PROTOCOL IV 01/22/25 12:30 01/22/25 12:17 DC Octreotide Acetate 1250 mcg/ Sodium Chloride 250 ml @ 0 mls/hr PROTOCOL IV 01/22/25 12:30 01/24/25 09:23 DC 01/22/25 12:41 5 MLS/HR Pantoprazole Sodium (PROTonix 40MG INJ) 40 mg BID IVP 01/24/25 21:00 02/23/25 20:59 Pantoprazole Sodium 80 mg/ Sodium Chloride 100 ml @ 10 mls/hr Q10H IV 01/22/25 09:00 01/24/25 09:23 DC 01/24/25 09:17 10 MLS/HR Pharmacy Profile Note (Pharmacy Communication) 1 each ONCE MISC 01/22/25 12:00 01/22/25 11:53 DC Pharmacy Profile Note (Pharmacy Communication) 1 each ONCE MISC 01/22/25 12:00 01/22/25 11:53 DC Pharmacy Profile Note (Pharmacy Communication) 1 each ONCE MISC 01/23/25 13:00 01/23/25 13:09 DC Pharmacy Profile Note (Pharmacy Communication) 1 each ONCE MISC 01/24/25 08:00 01/24/25 07:51 DC Sodium Chloride 1,000 ml @ 150 mls/hr Q6H40M IV 01/22/25 12:00 01/23/25 10:56 DC 01/23/25 02:45 150 MLS/HR Sucralfate (Carafate) 1 gm BID PO 01/23/25 21:00 01/23/25 11:41 DC Sucralfate (Carafate) 1 gm TID PO 01/23/25 14:00 02/22/25 20:59 01/24/25 09:15 1 GM Thiamine HCl 100 mg/Sodium Chloride 50 ml @ 100 mls/hr Q24H IV 01/23/25 14:00 01/25/25 14:29 01/23/25 14:05 100 MLS/HR Vancomycin HCl (Vancomycin 750mg) 750 mg Q24H IVPB 01/23/25 17:00 01/23/25 10:56 DC Vancomycin HCl (Vancomycin Protocol) 1 each AD IV 01/22/25 15:00 01/23/25 10:56 DC LABORATORY: [ ] Hematology Labs: Test 02/03/25 04:22 02/02/25 05:05 Range/Units White Blood Count 19.2 #H 4.8-10.8 K/uL Red Blood Count 2.28 L 4.00-5.50 MIL/uL Hemoglobin 6.8 *L 12.0-16.0 g/dL Hematocrit 20.0 *L 36-48 % Mean Corpuscular Volume 87.7 79-99 fL Mean Corpuscular Hemoglobin 29.8 27.0-33.0 pg Mean Corpuscular Hemoglobin Concent 34.0 32.0-36.0 g/dL Red Cell Distribution Width 19.1 H 11.0-15.5 % Platelet Count 117 #L 130-400 K/uL Mean Platelet Volume 11.8 H 7.5-10.5 fL Immature Granulocyte % (Auto) 0.8 0-1 % Neutrophils (%) (Auto) 90.3 H 40.0-77.0 % Lymphocytes (%) (Auto) 5.1 L 21.0-51.0 % Monocytes (%) (Auto) 3.2 3.0-13.0 % Eosinophils (%) (Auto) 0.3 0.0-8.0 % Basophils (%) (Auto) 0.3 0.0-5.0 % Neutrophils # (Auto) 17.3 H 1.8-7.7 K/uL Lymphocytes # (Auto) 1.0 1.0-4.8 K/uL Monocytes # (Auto) 0.6 0.1-1.0 K/uL Eosinophils # (Auto) 0.05 0.00-0.70 K/uL Basophils # (Auto) 0.06 0.00-0.20 K/uL Absolute Immature Granulocyte (auto 0.16 0-1 K/uL Nucleated Red Blood Cells 1.5 H 0.0-0.19 % White Cell Morphology Comment See comments Chemistry Labs: Test 02/03/25 11:39 02/03/25 08:30 02/03/25 03:32 02/02/25 23:15 Range/Units Whole Blood Glucose 71 70-110 MG/DL Lactic Acid Level 9.2 H 0.8-2.5 mmol/L Sodium Level 147 H 136-145 mmol/L Potassium Level 3.8 3.5-5.1 mmol/L Chloride Level 110 101-111 mmol/L Carbon Dioxide Level 19 L 21-32 mmol/L Blood Urea Nitrogen 41 H 7-18 mg/dL Creatinine 3.2 H 0.5-1.0 mg/dL Glomerular Filtration Rate Calc 15 >90 mL/min Random Glucose 66 L 70-105 mg/dL Total Calcium 8.6 8.5-10.1 mg/dL Phosphorus Level 2.6 2.5-4.9 mg/dL Magnesium Level 1.90 1.80-2.40 mg/dL Ammonia 58 #H 11-32 umol/L C-Reactive Protein, Quantitative 198.20 H 0.5-3.0 mg/L Bedside Glucose Comment Protocol Initiated Test 02/02/25 09:50 02/02/25 05:05 Range/Units Whole Blood Ketones Quantitative < 0.1 0.0-0.6 mmol/L Total Bilirubin 0.3 0.2-1.0 mg/dL Aspartate Amino Transf (AST/SGOT) 37 10-37 U/L Alanine Aminotransferase (ALT/SGPT) 11 L 12-78 U/L Alkaline Phosphatase 779 *H 50-136 U/L Total Protein 5.1 L 6.0-8.3 g/dL Albumin 0.8 L 3.5-5.0 g/dL Coagulation Labs: Test 02/03/25 03:32 Range/Units Prothrombin Time 13.5 H 9.6-11.6 SEC Prothromb Time International Ratio 1.31 H 0.85-1.15 Activated Partial Thromboplast Time 56.1 H 26.3-35.5 SEC DI[facility]NOSTICS / RADIOLOGY: [address] [place] [address] IMAGING REPORT Signed PATIENT: JUSTIN KLINE MR#: [id number] : 1955 SEX: F AGE: 70 LOCATION: 2CH ORDER 230 STATUS: ADM IN REPORT#: [id number] SERVICE 06 REASON: intubated ORDERING PHYSICIAN: KARL RODRIGUEZ PROCEDURE: CXR1VW - CHEST 1VW EXAM: CR Chest, single view. CLINICAL HISTORY: ET. Intubated COMPARISON: Prior chest radiograph dated February 02, 2025. FINDINGS: The endotracheal tube is identified approximately 3.9 cm from the arminda. Mild cardiomegaly with bilateral pulmonary congestion. Mild left-sided pleural effusion with adjacent lung atelectasis. Infiltrates in the right parahilar region and lower lobe. No evidence of pneumothorax. Atherosclerotic calcification of the aortic arch. No acute osseous abnormality. IMPRESSION: The endotracheal tube is identified approximately 3.9 cm from the arminda. Mild cardiomegaly with bilateral pulmonary congestion. Mild left-sided pleural effusion with adjacent lung atelectasis. Infiltrates in the right parahilar region and lower lobe. No evidence of pneumothorax. Compared to the prior study, there is interval development of infiltrates in the right lower lobe. /Equality DICTATED BY: RADHA BECERRA Jr., MD DATE: 02/03/25808 ELECTRONICALLY SIGNED BY: RADHA BECERRA Jr., MD DATE: 02/03/25808 PATIENT: JUSTIN KLINE MR#: [id number] : 1955 SEX: F AGE: 70 LOCATION: 2CH ORDER 7 STATUS: ADM IN REPORT#: [id number] SERVICE 4 REASON: suspected cardiogenic shock ORDERING PHYSICIAN: KARL RODRIGUEZ PROCEDURE: ECHO CMP - ECHO 2-D COMPLETE APPROVED REPORT EXAM: Two-dimensional and M-mode echocardiogram with Doppler and color Doppler. INDICATION ICD: Suspected Cardiogenic Shock R57.0 2D Dimensions RVDd 3.1 cm LVEF(%) 71.3 (>50%) LVED Vol(simp.) 33.0 mL IVSd 1.4 (0.7-1.1cm) FS(%) 39 % LVES Vol(simp.) 10.0 mL LVDd 2.9 (3.8-5.6cm) LA (2D) 2.7 (1.6-4.0cm) LVEF(%, simp.) 69 % PWd 1.4 (0.7-1.1cm) Ao Root(2D) 3.0 (2.0-3.7cm) LA ESV INDEX (BP) 21.64 mL/m2 IVSs 1.3 cm LVOT diam 2.0 (1.8-2.4cm) LVDs 1.7 (2.5-4.0cm) PWs 1.6 cm Deformation Strain Apical 4 -16.3 % Apical 2 -13.5 % Apical 3 -15.0 % Global Strain -14.9 % M-Mode Dimensions EPSS 0.5 cm LA (MM) 2.8 (1.6-4.0cm) Ao Root(MM) 3.2 (2.0-3.7cm) Aortic Valve AoV Vmax 1.8 m/s Ao Peak GR 12.6 mmHg LVOT Vmax 1.5 m/s AoV VTI 0.3 m Ao Mean GR 7.4 mmHg LVOT VTI 0.24 m YASMEEN (VMAX) 2.72 cm2 YASMEEN (VTI) 2.9 cm2 Mitral Valve MV E Vmax 53.1 cm/s DECEL Time 76 ms MV A Vmax 87.7 cm/s P 1/2 T 20 ms E/A ratio 0.6 MVA (PHT) 11.0 cm2 TDI E/E' Medial 9.7 E/E' Lateral 8.2 Medial E' Peak V 5.48 cm/s Lateral E' Peak V 6.50 cm/s Pulmonary Valve PV Vmax 1.5 m/s PV VTI 0.22 m PV Mean GR 5.1 mmHg PV Peak GR 8.9 mmHg Tricuspid Valve TR Vmax 2.8 m/s RAP (EST) 3 mmHg RVSP 37.5 mmHg TR Peak GR 34.5 mmHg Left Ventricle Left ventricular cavity is small. GLS -15.0% There is normal LV segmental wall motion. Moderate concentric left ventricular hypertrophy. The LVEF is > 70%. I ndeterminate diastolic function. Right Ventricle The right ventricle is normal size. The right ventricular systolic function is normal. Atria The left atrium size is normal. The right atrium is small in size. Aortic Valve The aortic valve is opens well. No aortic regurgitation is present. There is no aortic valvular stenosis. Mitral Valve The mitral valve is normal in structure. There is mild mitral valve regurgitation noted. Small mobile vegetation seen attached on the anterior mitral valve annulus measuring 1.2cm x 1.0cm There is no mitral valve stenosis. Tricuspid Valve The tricuspid valve is normal in structure. There is mild tricuspid valve regurgitation noted. Pulmonic Valve The pulmonary valve is normal in structure. There is no pulmonic valvular regurgitation. Great Vessels The aortic root is normal in size. The IVC is small in size and collapses >50% with inspiration. Pericardium There is no pericardial effusion. Other Information Quality : Technically difficult study due to body habitus pt currently intubated Rhythm : Tachycardia Conclusion The LVEF is > 70%. Moderate concentric left ventricular hypertrophy. DICTATED BY: LISBET MTZ MD DATE: 02/02/25926 ELECTRONICALLY SIGNED BY: LISBET MTZ MD DATE: 02/02/252231 PATIENT: JUSTIN KLINE MR#: [id number] : 1955 SEX: F AGE: 70 LOCATION: 2CH ORDER 3 STATUS: ADM IN REPORT#: [id number] SERVICE 09 REASON: intubated and resp failure ORDERING PHYSICIAN: KARL RODRIGUEZ PROCEDURE: CXR1VW - CHEST 1VW EXAM: CR Chest, 2 View. CLINICAL HISTORY: intubated and resp failure COMPARISON: Yesterday FINDINGS: LUNGS: Endotracheal tube adequately positioned below arminda. Pulmonary vascular congestion. PLEURAL SPACES: Bilateral pleural effusions. MEDIASTINUM: Cardiomegaly. BONES: No acute osseous abnormality. IMPRESSION: 1. Endotracheal tube adequately positioned below arminda. 2. Pulmonary vascular congestion. 3. Bilateral pleural effusions. 4. Cardiomegaly. /Eastern DICTATED BY: KIMBERLEE FABIAN MD DATE: 02/02/251102 ELECTRONICALLY SIGNED BY: KIMBERLEE FABIAN MD DATE: 02/02/251102 PATIENT: JUSTIN KLINE MR#: [id number] : 1955 SEX: F AGE: 70 LOCATION: 2CH ORDER 143 STATUS: ADM IN REPORT#: [id number] SERVICE 37 REASON: VOMITING ASSESS FOR SBO ORDERING PHYSICIAN: KARL RODRIGUEZ PROCEDURE: ABD 1VW - ABD 1VW EXAM: CR Abdomen, 2 view. CLINICAL HISTORY: Pain. COMPARISON: None provided. FINDINGS: Nonobstructed nonspecific bowel gas pattern. No free air is evident. No abnormal calcification. No aggressive appearing osseous lesion. IMPRESSION: 1. No acute process. /Eastern DICTATED BY: GOVIND HAYES MD DATE: 02/02/25806 ELECTRONICALLY SIGNED BY: GOVIND HAYES MD DATE: 02/02/25806 PATIENT: JUSTIN KLINE MR#: [id number] : 1955 SEX: F AGE: 70 LOCATION: 2CH ORDER 1335 STATUS: ADM IN REPORT#: [id number] SERVICE 1332 REASON: UNRESPONSIVE ORDERING PHYSICIAN: RERE BLAIR PAC PROCEDURE: BRAIN WO - MR BRAIN WO CON EXAM: MR Brain with and without Intravenous Contrast. CLINICAL HISTORY: UNRESPONSIVE WHILE TRYING TO EXTUBATE TECHNIQUE: Multisequence, multiplanar magnetic resonance images acquired of the brain with and without intravenous contrast. CONTRAST: COMPARISON: None provided. FINDINGS: BRAIN: Ill-defined areas of hyperintensities in the subcortical white matter of the right frontal and parietal lobes without diffusion restriction. 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 Age-related cerebral and cerebellar atrophy. Diffuse T2-FLAIR hyperintensities along the periventricular white matter of bilateral fronto-parietal lobes are suggestive of chronic small vessel ischemia. No restricted diffusion to indicate acute infarction. No intracranial haemorrhage. No midline shift or extra-axial fluid collection. No cerebellar tonsillar ectopia. The central arterial and venous flow voids are patent. VENTRICLES: No hydrocephalus. ORBITS: The orbits are normal. Pseudophakic lens in the right orbit. SINUSES AND MASTOIDS: Fluid signal intensity in the bilateral sphenoid sinus. Fluid signal intensity in bilateral mastoid air cells is suggestive of mastoiditis. The rest of the sinuses are clear. BONES: No acute fracture or aggressively appearing osseous lesion. IMPRESSION: 1. 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 2. 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 3. Bilateral sphenoid sinusitis and mastoiditis. /Equality DICTATED BY: SELIN BURNS MD DATE: 02/01/251609 ELECTRONICALLY SIGNED BY: SELIN BURNS MD DATE: 02/01/251609 PATIENT: JUSTIN KLINE MR#: [id number] : 1955 SEX: F AGE: 70 LOCATION: 2CH ORDER 99 STATUS: ADM IN REPORT#: [id number] SERVICE 0600 REASON: pp ORDERING PHYSICIAN: RERE BLAIR PAC PROCEDURE: CXR1VW - CHEST 1VW EXAM: CR Chest, 1 View. CLINICAL HISTORY: pp COMPARISON: Jan 31, 2025. FINDINGS: ETT tip 2.9 cm above arminda. Left PICC tip in SVC. LUNGS: Left perihilar and left basilar airspace disease, slightly more apparent on today's study. Improved left lung aeration. Small left pleural effusion. MEDIASTINUM: Cardiomegaly. BONES: No aggressive appearing osseous lesion seen. IMPRESSION: Left perihilar and left basilar airspace disease, slightly more apparent on today's study. Improved left lung aeration. Small left pleural effusion. /Equality DICTATED BY: GOVIND HAYES MD DATE: 02/02/25709 ELECTRONICALLY SIGNED BY: GOVIND HAYES MD DATE: 02/02/25709 PATIENT: JUSTIN KLINE MR#: [id number] : 1955 SEX: F AGE: 70 LOCATION: [facility] ORDER 1 STATUS: ADM IN REPORT#: [id number] SERVICE 1 REASON: UNRESPONSIVE ORDERING PHYSICIAN: RERE BLAIR PROCEDURE: HEAD WO - CT HEAD/BRAIN W/O CONTRAST EXAM: CT Head Without IV contrast. CLINICAL HISTORY: UNRESPONSIVE TECHNIQUE: Axial computed tomography images of the head/brain without intravenous contrast. COMPARISON: None provided. FINDINGS: BRAIN: There is diffuse cerebral atrophy, evidenced by prominence of the cortical sulci and ventricular system, compatible with age-related changes. There is evidence of chronic small vessel ischemic change characterized by bilateral periventricular and deep white matter hypodensities. Ill-defined hypodensity with loss of rodriguez-white matter interface in the right frontal and high parietal lobes concerning for a possible infarct. No evidence of acute hemorrhage. No mass lesion. No midline shift or extra-axial collections. VENTRICLES: No hydrocephalus. ORBITS: The orbits are unremarkable. SINUSES AND MASTOIDS: Mucosal thickening in bilateral sphenoidal sinuses. The rest of the Paranasal sinuses and mastoid air cells are clear. BONES: No fracture. SOFT TISSUES: Unremarkable. IMPRESSION: 1. Ill-defined hypodensity with loss of rodriguez-white matter interface in the right frontal and high parietal lobes concerning for possible infarct. Consider MRI 2. No acute intracranial hemorrhage. /Eastern DICTATED BY: SELIN BURNS MD DATE: 01/31/251730 ELECTRONICALLY SIGNED BY: SELIN BURNS MD DATE: 01/31/251730 PATIENT: JUSTIN KLINE MR#: [id number] : 1955 SEX: F AGE: 70 LOCATION: 2CH ORDER STATUS: ADM IN REPORT#: [id number] SERVICE 1 REASON: pp ORDERING PHYSICIAN: RERE BLAIR PROCEDURE: CXR1VW - CHEST 1VW EXAM: CR Chest, 1 View. CLINICAL HISTORY: pp COMPARISON: 01/30 20:49 EDT CR - CHEST 1VW FINDINGS: Essentially stable since prior exam. ETT tip 4 cm above arminda. Left PICC tip in SVC. stable left perihilar and left basilar airspace disease and small left pleural effusion. Right lung remains relatively clear. Negative for pneumothorax. Heart size, pulmonary vascularity and mediastinum within normal limits. PLEURAL SPACES: No evidence of pleural effusion or pneumothorax. MEDIASTINUM: Cardiac size and mediastinal contours within normal limits. BONES: No aggressive appearing osseous lesion seen. IMPRESSION: Stable chest. Support lines and tubes appear appropriate position and stable. Stable left perihilar and left basilar airspace disease and small left pleural effusion. Right lung remains clear. /Eastern DICTATED BY: RADHA BECERRA Jr., MD DATE: 01/31/251312 ELECTRONICALLY SIGNED BY: RADHA BECERRA Jr., MD DATE: 01/31/251312 PATIENT: JUSTIN KLINE MR#: [id number] : 1955 SEX: F AGE: 70 LOCATION: 2CH ORDER 0758 STATUS: ADM IN REPORT#: [id number] SERVICE 0756 REASON: congestion,intubated ORDERING PHYSICIAN: RERE BLAIR PROCEDURE: CXR1VW - CHEST 1VW EXAM: CR Chest, 2 View. CLINICAL HISTORY: congestion,intubated COMPARISON: Yesterday FINDINGS: LUNGS: Endotracheal tube adequately positioned above level arminda. Left retrocardiac opacity could be due to pleural effusion/atelectasis. Pulmonary vascular congestion. PLEURAL SPACES: Small right pleural effusion. MEDIASTINUM: Cardiomegaly. BONES: No acute osseous abnormality. IMPRESSION: 1. Endotracheal tube adequately positioned above the amrinda. 2. Left retrocardiac opacity, possibly due to pleural effusion or atelectasis. 3. Pulmonary vascular congestion. 4. Small right pleural effusion. 5. Cardiomegaly. /Equality DICTATED BY: KIMBERLEE FABIAN MD DATE: 01/30/251050 ELECTRONICALLY SIGNED BY: KIMBERLEE FABIAN MD DATE: 01/30/251050 PATIENT: JUSTIN KLINE MR#: [id number] : 1955 SEX: F AGE: 70 LOCATION: [facility] ORDER 0 STATUS: ADM IN REPORT#: [id number] SERVICE 0520 REASON: intubated ORDERING PHYSICIAN: MISTI DAY APRN PROCEDURE: CXR1VW - CHEST 1VW CHEST 1VW REASON: intubated COMPARISON: Prior chest radiograph from 01/28/2025 is available. FINDINGS: Single view of the chest was obtained. They demonstrate mild cardiomegaly. There is uncoiling atherosclerotic change of thoracic aorta. The lung hassan demonstrate there is an infiltrate in the left lower lung with left-sided pleural effusion which appears to be worsening. The remaining lung hassan are clear. Endotracheal tube is unchanged in satisfactory position. There is mild elevation of the right hemidiaphragm.. Mediastinum and bony thorax appear unremarkable. The bony thorax demonstrate mild osteopenia.. IMPRESSION: 1. There is infiltrate annual in the left lower lung with left-sided pleural effusion 2. Mild cardiomegaly 3. Endotracheal tube in satisfactory position.. DICTATED BY: RENA MADDOX MD DATE: 01/29/25 1011 ELECTRONICALLY SIGNED BY: RENA MADDOX MD DATE: 01/29/25 1015 PATIENT: JUSTIN KLINE MR#: [id number] : 1955 SEX: F AGE: 70 LOCATION: 2CH ORDER 0834 STATUS: ADM IN REPORT#: [id number] SERVICE 0833 REASON: pp ORDERING PHYSICIAN: RERE BLAIR PROCEDURE: CXR1VW - CHEST 1VW CHEST 1VW REASON: pp COMPARISON: Prior study from 01/26/2025 is available. FINDINGS: Single view of the chest was obtained. Lungs are clear. There is groundglass appearance suggesting of left-sided pleural effusion. Heart size is normal. There is uncoiling atherosclerotic change of thoracic aorta. There is no pulmonary vascular congestion. The endotracheal tube is in satisfactory position. Mediastinum and bony thorax appear unremarkable. IMPRESSION: 1. No evidence of airspace consolidation or pulmonary venous congestion 2. There is suggestion of a left-sided uuzig-rx-xopltldq pleural effusion 3. Endotracheal tube in satisfactory position.. DICTATED BY: RENA MADDOX MD DATE: 01/28/25 1107 ELECTRONICALLY SIGNED BY: RENA MADDOX MD DATE: 01/28/25 1112 PATIENT: JUSTIN KLINE MR#: [id number] : 1955 SEX: F AGE: 70 LOCATION: 2CH ORDER 2300 STATUS: ADM IN REPORT#: [id number] SERVICE 0600 REASON: vented pt ORDERING PHYSICIAN: KARL RODRIGUEZ PROCEDURE: CXR1VW - CHEST 1VW EXAM: XR Chest, 3 Views. CLINICAL HISTORY: 70-year-old female ventilated patient. COMPARISON: Prior exam from 01/25/2025 at 3:39 PM. FINDINGS: LUNGS: Minimal pulmonary congestion, new compared to the prior exam. PLEURAL SPACES: No pleural effusion or pneumothorax. HEART: Moderate cardiomegaly, somewhat more pronounced compared to the prior exam. BONES: No acute osseous abnormality. VASCULATURE: Atherosclerotic aorta. LINES AND TUBES: Endotracheal tube tip at the arminda. Recommendation for withdrawal of 1 to 2 cm. IMPRESSION: 1. Endotracheal tube tip at the arminda. Recommend withdrawal of 1 to 2 cm. 2. Moderate cardiomegaly, somewhat more pronounced compared to the prior exam. 3. Atherosclerotic aorta. 4. Minimal pulmonary congestion, new compared to the prior XR chest from 01/25/2025 at 3:39 PM. /Equality DICTATED BY: TOM SANCHEZ MD DATE: 01/26/252120 ELECTRONICALLY SIGNED BY: TOM SANCHEZ MD DATE: 01/26/252120 PATIENT: JUSTIN KLINE MR#: [id number] : 1955 SEX: F AGE: 70 LOCATION: 2CH ORDER 38 STATUS: ADM IN REPORT#: [id number] SERVICE 38 REASON: picc placement ORDERING PHYSICIAN: RERE BLAIR PROCEDURE: CXR1VW - CHEST 1VW CHEST 1VW REASON: picc placement COMPARISON: Prior chest radiograph from 01/25/2025 at 1534 is available. FINDINGS: Single view of the chest was obtained. Lungs are clear. Heart size is normal. There is uncoiling atherosclerotic change of thoracic ureter. There is no pulmonary vascular congestion. Mediastinum and bony thorax appear unremarkable. There is a right-sided PIC catheter tip in superior vena cava at the cavoatrial junction. Endotracheal tube is in satisfactory position. IMPRESSION: 1. Support lines are in satisfactory position.. 2. No evidence of airspace consolidation or pulmonary venous congestion. DICTATED BY: RENA MADDOX MD DATE: 01/25/25 1558 ELECTRONICALLY SIGNED BY: RENA MADDOX MD DATE: 01/25/25 1600 PATIENT: JUSTIN KLINE MR#: [id number] : 1955 SEX: F AGE: 70 LOCATION: 2CH ORDER 1529 STATUS: ADM IN REPORT#: [id number] SERVICE 1528 REASON: PICC placement ORDERING PHYSICIAN: RERE BLAIR PROCEDURE: CXR1VW - CHEST 1VW EXAM: XR Chest, 1 View. CLINICAL HISTORY: 70 year old female PICC placement right upper extremity. COMPARISON: None provided. FINDINGS: LUNGS: The lungs are clear. No consolidation. PLEURAL SPACES: No pleural effusion or pneumothorax. HEART: The heart size is enlarged. BONES: No acute osseous abnormality. LINES AND TUBES: PICC line with tip in the SVC. Endotracheal tube with tip in the arminda. VASCULATURE: Atherosclerotic aorta, similar to prior. IMPRESSION: 1. No acute cardiopulmonary pathology. 2. PICC line with tip in the SVC and endotracheal tube with tip in the arminda. /[facility] DICTATED BY: TOM SANCHEZ MD DATE: 01/25/252108 ELECTRONICALLY SIGNED BY: TOM SANCHEZ MD DATE: 01/25/252108 PATIENT: JUSTIN KLINE MR#: [id number] : 1955 SEX: F AGE: 70 LOCATION: 2CH ORDER 2300 STATUS: ADM IN REPORT#: [id number] SERVICE 0600 REASON: vented pt ORDERING PHYSICIAN: KARL RODRIGUEZ PROCEDURE: CXR1VW - CHEST 1VW EXAM: XR Chest, 2 Views. CLINICAL HISTORY: 70-year-old female, ventilated. COMPARISON: 01/24/2025. FINDINGS: LUNGS: Atelectasis lung bases. PLEURAL SPACES: Left pleural effusion, similar to prior XR chest from 01/24/2025 at 4:48 am. HEART: The heart size is normal. BONES: No acute osseous abnormality. IMPRESSION: 1. Left pleural effusion, similar to prior XR chest from 01/24/2025 at 4:48 am. 2. Atelectasis lung bases. /[facility] DICTATED BY: TOM SANCHEZ MD DATE: 01/25/252038 ELECTRONICALLY SIGNED BY: TOM SANCHEZ MD DATE: 01/25/252038 PATIENT: JUSTIN KLINE MR#: [id number] : 1955 SEX: F AGE: 70 LOCATION: 2[facility] ORDER 1510 STATUS: ADM IN REPORT#: [id number] SERVICE 1508 REASON: HGB drop, assess for possible GI bleed ORDERING PHYSICIAN: KIRSTEN KRUSE MD PROCEDURE: GIBLEED - NM GI BLOOD LOSS IMAG Examination NM radiolabeled red blood cell study History Gastrointestinal bleeding Technique After IV administration of Tc-99m labeled red autologous blood cells, anterior projection images of the abdomen and pelvis were obtained dynamically for one hour. Findings Following administration of radiolabeled red blood cells, there is normal activity seen in cardiovascular and genitourinary structures, the liver and spleen. There is no evidence for extravasation of radiolabeled red blood cells during the examination. IMPRESSION: No evidence of gastrointestinal hemorrhage during the course of examination acquisition. /[facility] DICTATED BY: RADHA BECERRA Jr., MD DATE: 01/25/251457 ELECTRONICALLY SIGNED BY: RADHA BECERRA Jr., MD DATE: 01/25/251457 PATIENT: JUSTIN KLINE MR#: [id number] : 1955 SEX: F AGE: 70 LOCATION: 2[facility] ORDER 1143 STATUS: ADM IN REPORT#: [id number] SERVICE 1131 REASON: new onset swelling in her arms ORDERING PHYSICIAN: KIRSTEN KRUSE MD PROCEDURE: VENOUS ALCIDES - US VENOUS DOPPLER BILATERAL EXAMINATION: SPECTRAL DOPPLER ULTRASOUND EXAMINATION OF THE BILATERAL UPPER EXTREMITY VEINS. CLINICAL HISTORY: Swelling. COMPARISON: None. TECHNIQUE: Grayscale, color, and spectral Doppler images of the bilateral upper extremity veins are submitted. FINDINGS: Right: The cephalic and brachial veins are patent. These veins show normal flow with physiological changes of phasicity and augmentation. There is thrombosis in the subclavian, axillary, and basilic veins. Left: The internal jugular, subclavian, axillary, basilic, brachial veins are patent. These veins show normal flow with physiological changes of phasicity and augmentation. IMPRESSION: Deep vein thrombosis in the right subclavian and axillary veins. Right basilic vein thrombosis. The cutting table operator first informed the patient's nurse at the time of the exam. /[facility] DICTATED BY: GOVIND HAYES MD DATE: 01/25/25722 ELECTRONICALLY SIGNED BY: GOVIND HAYES MD DATE: 01/25/25722 PATIENT: JUSTIN KLINE MR#: [id number] : 1955 SEX: F AGE: 70 LOCATION: 2[facility] ORDER 99 STATUS: ADM IN REPORT#: [id number] SERVICE 9 REASON: vented pt ORDERING PHYSICIAN: KARL RODRIGUEZ PROCEDURE: CXR1VW - CHEST 1VW EXAM: CR Chest, 1 View. CLINICAL HISTORY: vented pt COMPARISON: None provided. FINDINGS: LUNGS: Endotracheal tube midline above arminda Slight worsening left lower lobe infiltrate PLEURAL SPACES: No evidence of pleural effusion or pneumothorax. MEDIASTINUM: Cardiac size and mediastinal contours within normal limits. BONES: No acute osseous abnormality. IMPRESSION: 1. Endotracheal tube midline above arminda 2. Slight worsening left lower lobe infiltrate /[facility] DICTATED BY: ANA ALSTON MD DATE: 01/24/252109 ELECTRONICALLY SIGNED BY: ANA ALSTON MD DATE: 01/24/252109 PATIENT: JUSTIN KLINE MR#: [id number] : 1955 SEX: F AGE: 70 LOCATION: 2[facility] ORDER 1301 STATUS: ADM IN REPORT#: [id number] SERVICE 1258 REASON: Decreased renal function ORDERING PHYSICIAN: SAUMYA ANTONIO PROCEDURE: RENAL - US RENAL SONOGRAM EXAMINATION: ULTRASOUND OF THE RETROPERITONEUM. CLINICAL HISTORY: Decreased renal function. COMPARISON: CT abdomen and pelvis without contrast dated 01/22/2025. TECHNIQUE: Real-time grayscale ultrasound images of the kidneys. FINDINGS: The right kidney is smaller in caliber, and the left kidney is normal in caliber, the right kidney measures 7.4 x 3.9 x 3.1 cm and the left kidney measures 8.2 x 3.0 x 3.3 cm in its craniocaudal, AP, and transverse dimensions respectively. There is normal renal cortical thickness and increased cortical echogenicity. There is no renal calculus or hydronephrosis. The urinary bladder is empty. There is Kamara???s bulb. IMPRESSION: Relatively small right kidney. Increased echogenicity of both the kidneys may reflect renal parenchymal disease. Recommend clinical correlation and with laboratory parameters. Kamara???s bulb is in situ. /[facility] DICTATED BY: RADHA BECERRA Jr., MD DATE: 01/23/252300 ELECTRONICALLY SIGNED BY: RADHA BECERRA Jr., MD DATE: 01/23/252300 PATIENT: JUSTIN KLINE MR#: [id number] : 1955 SEX: F AGE: 70 LOCATION: 2[facility] ORDER 0745 STATUS: ADM IN REPORT#: [id number] SERVICE 0743 REASON: intubated,congestion ORDERING PHYSICIAN: KARL RODRIGUEZ PROCEDURE: CXR1VW - CHEST 1VW EXAM: CR Chest, 1 View. CLINICAL HISTORY: intubated,congestion COMPARISON: 01/22 16:55 EDT CR - CHEST 1VW FINDINGS: ET tube 3.7 cm above the arminda. LUNGS: The lungs show no infiltrate or other acute finding. PLEURAL SPACES: No pleural effusion or pneumothorax. MEDIASTINUM: Cardiac size and mediastinal contours within normal limits. BONES: No acute osseous abnormality. IMPRESSION: No acute cardiopulmonary pathology is evident. ET tube 3.7 cm above the arminda. /[facility] DICTATED BY: RADHA BECERRA Jr., MD DATE: 01/23/25 101 ELECTRONICALLY SIGNED BY: RADHA BECERRA Jr., MD DATE: 01/23/251009 PATIENT: JUSTIN KLINE MR#: [id number] : 1955 SEX: F AGE: 70 LOCATION: [facility] ORDER 23 STATUS: ADM IN REPORT#: [id number] SERVICE 22 REASON: NG tube location ORDERING PHYSICIAN: KENA HAWLEY MD PROCEDURE: ABD 1VW - ABD 1VW ADDENDUM REPORT ADDENDUM: Results were shared by telephone at 10:10 pm on 01-22-25 and acknowledged by KENA Rivas. /[facility] EXAM: CR Abdomen, 1 View. CLINICAL HISTORY: NG tube location COMPARISON: None provided. FINDINGS: BOWEL: The bowel gas pattern is within normal limits. PERITONEUM/SOFT TISSUES: No free air evident. No pathologic appearing calcification. BONES: No acute osseous abnormality. MISCELLANEOUS: No nasogastric tube identified. Gastrostomy tube left upper IMPRESSION: 1. No nasogastric tube identified. 2. Gastrostomy tube left upper quadrant /[facility] DICTATED BY: ANA ALSTON MD DATE: 01/22/252210 ELECTRONICALLY SIGNED BY: DATE: EXAM: CR Abdomen, 1 View. CLINICAL HISTORY: NG tube location COMPARISON: None provided. FINDINGS: BOWEL: The bowel gas pattern is within normal limits. PERITONEUM/SOFT TISSUES: No free air evident. No pathologic appearing calcification. BONES: No acute osseous abnormality. MISCELLANEOUS: No nasogastric tube identified. Gastrostomy tube left upper IMPRESSION: 1. No nasogastric tube identified. 2. Gastrostomy tube left upper quadrant /[facility] DICTATED BY: ANA ALSTON MD DATE: 01/22/252200 ELECTRONICALLY SIGNED BY: ANA ALSTON MD DATE: 01/22/252200 PATIENT: JUSTIN KLINE MR#: [id number] : 1955 SEX: F AGE: 70 LOCATION: 2[facility] ORDER 50 STATUS: ADM IN REPORT#: [id number] SERVICE 49 REASON: post intubation CXR ORDERING PHYSICIAN: KARL RODRIGUEZ PROCEDURE: CXR1VW - CHEST 1VW ADDENDUM REPORT ADDENDUM: Results were shared by telephone at 6:33 pm on 01-22-25 and acknowledged by patient's nurse JESSICA Mas. /[facility] EXAM: CR Chest, 2 View. CLINICAL HISTORY: post intubation CXR COMPARISON: None provided. FINDINGS: LUNGS: Endotracheal tube appears midline above arminda PLEURAL SPACES: No pleural effusion or pneumothorax. MEDIASTINUM: The cardiomediastinal silhouette is within normal limits. BONES: No acute osseous abnormality. MISCELLANEOUS: Question nasogastric tube in the thoracic inlet. IMPRESSION: 1. Endotracheal tube appears midline above arminda 2. Question nasogastric tube in the thoracic inlet. /[facility] DICTATED BY: ANA ALSTON MD DATE: 01/22/251835 ELECTRONICALLY SIGNED BY: DATE: EXAM: CR Chest, 2 View. CLINICAL HISTORY: post intubation CXR COMPARISON: None provided. FINDINGS: LUNGS: Endotracheal tube appears midline above arminda PLEURAL SPACES: No pleural effusion or pneumothorax. MEDIASTINUM: The cardiomediastinal silhouette is within normal limits. BONES: No acute osseous abnormality. MISCELLANEOUS: Question nasogastric tube in the thoracic inlet. IMPRESSION: 1. Endotracheal tube appears midline above arminda 2. Question nasogastric tube in the thoracic inlet. /[facility] DICTATED BY: ANA ALSTON MD DATE: 01/22/251821 ELECTRONICALLY SIGNED BY: ANA ALSTON MD DATE: 01/22/251821 PATIENT: JUSTIN KLINE MR#: [id number] : 1955 SEX: F AGE: 70 LOCATION: [facility] ORDER 11 STATUS: ADM IN REPORT#: [id number] SERVICE 1509 REASON: transaminitis rule out CBD dilation/obstruction cholangitis ORDERING PHYSICIAN: KARL RODRIGUEZ PROCEDURE: ABDRUQLTD - US ABDOMINAL RUQ\LTD EXAMINATION: ULTRASOUND OF THE ABDOMEN (LIMITED) WITH COLOR DOPPLER. CLINICAL HISTORY: Transaminitis. To rule out CBD obstruction. COMPARISON: CT abdomen and pelvis without contrast from the same day. TECHNIQUE: Real-time grayscale ultrasound images of the abdomen. In addition, color Doppler is medically necessary to perform in order to evaluate vascularity and blood flow. FINDINGS: Liver: Normal in caliber, the right hepatic lobe measures 15.4 cm in the craniocaudal dimension. There is increased echogenicity of the hepatic parenchyma. There is no focal hepatic abnormality or intrahepatic biliary ductal dilatation. There is normal spectral Doppler of the main portal vein. Gallbladder: Within normal limits with normal wall thickness (0.22 cm). No hyperemia or pericholecystic free fluid. There are few calculi, the largest measure 1.5 cm. Common bile duct is normal in caliber, measuring 0.28 cm. Pancreas: Obscured by overlying bowel gas. The right kidney is normal in caliber, the right kidney measures 8.2 x 3.3 x 2.9 cm in craniocaudal, AP, and transverse dimensions respectively. There is normal renal cortical thickness, and cortical echogenicity. There is no renal calculus or hydronephrosis. IMPRESSION: Hepatic steatosis. Cholelithiasis. No cholecystitis. /[facility] DICTATED BY: GOVIND HAYES MD DATE: 01/23/25856 ELECTRONICALLY SIGNED BY: GOVIND HAYES MD DATE: 01/23/25856 PATIENT: JUSTIN KLINE MR#: [id number] : 1955 SEX: F AGE: 70 LOCATION: [facility] ORDER 26 STATUS: ADM IN REPORT#: [id number] SERVICE 25 REASON: PERICARDIAL EFFUSION. Please also assess EF ORDERING PHYSICIAN: KENA HAWLEY MD PROCEDURE: [facility] - ECHO 2-D COMPLETE APPROVED REPORT EXAM: Two-dimensional and M-mode echocardiogram with Doppler and color Doppler. INDICATION ICD: Assess pericardial effusion and ejection fraction 2D Dimensions RVDd 3.0 cm LVEF(%) 49.3 (>50%) LVED Vol(simp.) 20.0 mL IVSd 1.9 (0.7-1.1cm) FS(%) 23 % LVES Vol(simp.) 9.0 mL LVDd 2.4 (3.8-5.6cm) LA (2D) 2.6 (1.6-4.0cm) LVEF(%, simp.) 55 % PWd 2.0 (0.7-1.1cm) Ao Root(2D) 2.7 (2.0-3.7cm) LA ESV INDEX (BP) 22.00 mL/m2 IVSs 2.0 cm LVOT diam 2.0 (1.8-2.4cm) LVDs 1.8 (2.5-4.0cm) IVC diam 1.2 cm PWs 1.7 cm Deformation Strain Apical 4 -7.1 % Apical 2 -6.9 % Apical 3 -10.1 % Global Strain -8.0 % M-Mode Dimensions EPSS 0.8 cm LA (MM) 2.3 (1.6-4.0cm) Ao Root(MM) 2.9 (2.0-3.7cm) Aortic Valve AoV Vmax 2.1 m/s Ao Peak GR 17.0 mmHg LVOT Vmax 2.1 m/s AoV VTI 0.2 m Ao Mean GR 8.4 mmHg LVOT VTI 0.22 m YASMEEN (VMAX) 3.02 cm2 YASMEEN (VTI) 3.6 cm2 Mitral Valve MV E Vmax 51.6 cm/s DECEL Time 82 ms MV A Vmax 69.0 cm/s P 1/2 T 19 ms E/A ratio 0.7 MVA (PHT) 11.9 cm2 TDI E/E' Medial 6.8 E/E' Lateral 9.3 Medial E' Peak V 7.57 cm/s Lateral E' Peak V 5.54 cm/s Pulmonary Valve PV Vmax 1.3 m/s PV VTI 0.14 m PV Mean GR 3.5 mmHg PV Peak GR 6.5 mmHg Tricuspid Valve TR Vmax 1.5 m/s RAP (EST) 3 mmHg RVSP 12.4 mmHg TR Peak GR 9.4 mmHg Left Ventricle Left ventricular cavity is small. GLS -8.0% Severe concentric left ventricular hypertrophy. LVEF is 50-55%. The left ventricular diastolic function is normal. Right Ventricle The right ventricle is normal size. The right ventricular systolic function is normal. Atria The left atrium size is normal. The right atrium is small in size. Aortic Valve The aortic valve is normal in structure. No aortic regurgitation is present. There is no aortic valvular stenosis. Mitral Valve The mitral valve is normal in structure. There is trace of mitral valve regurgitation noted. There is no mitral valve stenosis. Tricuspid Valve The tricuspid valve is normal in structure. There is trace of tricuspid valve regurgitation noted. Pulmonic Valve Pulmonic valve is not well visualized. There is no pulmonic valvular regurgitation. Great Vessels The aortic root is normal in size. The IVC is normal in size and collapses >50% with inspiration. Pericardium There is no pericardial effusion. Other Information Quality : Technically difficult study due to body habitus, pt intubated Rhythm : Tachycardia Conclusion LVEF is 50-55%. Severe concentric left ventricular hypertrophy. The left ventricular diastolic function is normal. There is no pericardial effusion. DICTATED BY: GIULIANA AWAN DO DATE: 01/22/258 ELECTRONICALLY SIGNED BY: GIULIANA AWAN DO DATE: 01/23/25 0743 PATIENT: JUSTIN KLINE MR#: [id number] : 1955 SEX: F AGE: 70 LOCATION: [facility] ORDER 1152 STATUS: ADM IN REPORT#: [id number] SERVICE 1151 REASON: S/P INTUBATION. ET tube position ORDERING PHYSICIAN: KENA HAWLEY MD PROCEDURE: CXR1VW - CHEST 1VW EXAM: CR Chest, 2 View. CLINICAL HISTORY: S/P INTUBATION. ET tube position COMPARISON: Radiograph from January 22 at 8:53 AM FINDINGS: Endotracheal tube terminates 1.4 cm above the arminda. LUNGS: There is no mass, infiltrate, or acute pulmonary abnormality. PLEURAL SPACES: No pleural effusion or pneumothorax. MEDIASTINUM: Cardiac size and mediastinal contours within normal limits. Atherosclerosis of the thoracic aorta. BONES: No acute osseous abnormality. IMPRESSION: 1. Endotracheal tube positioned 1.4 cm above the arminda. 2. No acute cardiopulmonary abnormality. /[facility] DICTATED BY: RADHA BECERRA Jr., MD DATE: 01/22/251309 ELECTRONICALLY SIGNED BY: RADHA BECERRA Jr., MD DATE: 01/22/251309 PATIENT: JUSTIN KLINE MR#: [id number] : 1955 SEX: F AGE: 70 LOCATION: [facility] ORDER 0949 STATUS: REG ER REPORT#: [id number] SERVICE 09 REASON: gi bleed ORDERING PHYSICIAN: JULISA PETERSON MD PROCEDURE: ABD PEL WO - CT ABDOMEN/PELVIS W/O CONTRAST CT ABDOMEN/PELVIS W/O CONTRAST REASON: gi bleed COMPARISON: None. FINDINGS: Lung bases are clear. There is a small left-sided pleural effusion. There is coronary calcifications suggesting coronary artery disease. There is suggestion of small pericardial effusion. There is a moderate size hiatal hernia. . There are no focal liver lesions. There are normal-appearing kidneys.. Spleen and pancreas appear unremarkable. The gallbladder appears normal as well. There is a feeding gastrostomy tube in place. Bowel loops appear unremarkable. This includes normal appearance of the appendix . There is fecal stasis in the rectal vault. Abutting the right lobe of the bowel in the right lower quadrant and abutting the right psoas muscle there is a a cystic structure measuring 5.9 x 3.9 cm. There is no evidence of free fluid or intraperitoneal air. There are no focal fluid collections. The retroperitoneum appear normal as do pelvic soft tissue structures. Aorta and iliac vessels demonstrate diffuse atherosclerotic changes. The anterior abdominal wall is intact. Osseous structures appear unremarkable. The uterus is surgically absent. IMPRESSION: 1. No acute process seen in CT of abdomen and pelvis without intravenous contrast 2. In the right adnexal region there is a cystic structure measuring 5.9 x 3.9 cm 3. Fecal stasis impaction seen in the rectal vault CT was performed with one or more following dose reduction techniques: automated exposure control, adjustment of the mA and kv according to patient's size, or use of a iterative reconstruction technique. DICTATED BY: RENA MADDOX MD DATE: 01/22/25 1044 ELECTRONICALLY SIGNED BY: RENA MADDOX MD DATE: 01/22/25 1051 PATIENT: JUSTIN KLINE MR#: [id number] : 1955 SEX: F AGE: 70 LOCATION: [facility] ORDER 8 STATUS: [facility] REPORT#: [id number] SERVICE REASON: gi bleed ORDERING PHYSICIAN: JULISA PETERSON MD PROCEDURE: ABD PEL WO - CT ABDOMEN/PELVIS W/O CONTRAST CT ABDOMEN/PELVIS W/O CONTRAST REASON: gi bleed COMPARISON: None. FINDINGS: Lung bases are clear. There is a small left-sided pleural effusion. There is coronary calcifications suggesting coronary artery disease. There is suggestion of small pericardial effusion. There is a moderate size hiatal hernia. . There are no focal liver lesions. There are normal-appearing kidneys.. Spleen and pancreas appear unremarkable. The gallbladder appears normal as well. There is a feeding gastrostomy tube in place. Bowel loops appear unremarkable. This includes normal appearance of the appendix . There is fecal stasis in the rectal vault. Abutting the right lobe of the bowel in the right lower quadrant and abutting the right psoas muscle there is a a cystic structure measuring 5.9 x 3.9 cm. There is no evidence of free fluid or intraperitoneal air. There are no focal fluid collections. The retroperitoneum appear normal as do pelvic soft tissue structures. Aorta and iliac vessels demonstrate diffuse atherosclerotic changes. The anterior abdominal wall is intact. Osseous structures appear unremarkable. The uterus is surgically absent. IMPRESSION: 1. No acute process seen in CT of abdomen and pelvis without intravenous contrast 2. In the right adnexal region there is a cystic structure measuring 5.9 x 3.9 cm 3. Fecal stasis impaction seen in the rectal vault CT was performed with one or more following dose reduction techniques: automated exposure control, adjustment of the mA and kv according to patient's size, or use of a iterative reconstruction technique. DICTATED BY: RENA MADDOX MD DATE: 01/22/251043 ELECTRONICALLY SIGNED BY: RENA MADDOX MD DATE: 01/22/25 105 PATIENT: JUSTIN KLINE MR#: [id number] : 1955 SEX: F AGE: 70 LOCATION: [facility] ORDER 9 STATUS: [facility] REPORT#: [id number] SERVICE 7 REASON: ORDERING PHYSICIAN: JULISA PETERSON MD PROCEDURE: CXR1VW - CHEST 1VW EXAM: Chest radiograph 1 view HISTORY: Chest pain COMPARISON: None FINDINGS: No pulmonary consolidations. No pleural effusion or pneumothorax. Enlarged cardiac silhouette. Tortuous calcified aorta. No overt congestion. Degenerative changes. IMPRESSION: No acute cardiopulmonary disease. /[facility] DICTATED BY: DESTINY CASTELLANOS MD DATE: 01/22/251058 ELECTRONICALLY SIGNED BY: DESTINY CASTELLANOS MD DATE: 01/22/251058 ASSESSMENT: Acute renal failure Anemia Hypoalbuminemia Septic shock requiring pressors, POA Hemorrhagic shock Septic shock Deep vein thrombosis in the right subclavian and axillary veins and right basilic vein thrombosis Acute metabolic encephalopathy POA Acute Hypoxic rep failure requiring intubation for airway protection POA Acute complicated cystitis POA Acute on chronic anemia 2/ GI Bleed (Hematemesis) POA Hyperglycemia in the presence of type 2 diabetes mellitus, POA right adnexal region there is a cystic structure measuring 5.9 x 3.9 cm Thrombocytosis Hypokalemia Electrolyte derangement (hypokalemia, hypocalcemia) severe Hypoalbuminemia Malnutrition Transaminitis Elevated TSH suspected myxedema Uncontrolled type 2 diabetes mellitus Essential hypertension Anemia Prior history of CVA Right corea-wzs-xdwv amputation G-tube in situ Bed ridden Recent hospitalization [facility] for hematemesis PLAN: Labs, diagnostic, radiologic exams reviewed and interpreted by myself and supervising physician. We have reviewed external records in detail There is no need for emergent renal replacement therapy at this time. Renal replacement therapy remains a high-risk procedure This was discussed with family at the bedside, multiple questions were answered. Order one dose of Lasix 80 mg IV, hold off free water flushes, albumin 25 g IV x1 dose Require close monitoring of renal function and electrolytes Order CBC, CMP, PT/PTT, and electrolytes in am Continue with antibiotics Continue mechanical ventilation and sedation Continue with IV pressors Monitor blood pressure adjust medication doses as needed Avoid hypotensive episodes May use Dilaudid 0.5 mg IV every 6 hours as needed for severe pain Monitor blood sugars Strict intake, output, and daily weight should be monitored Please renally adjust medications Avoid nephrotoxic and nonsteroidal drugs Avoid contrast if possible Will continue to monitor renal function, anemia, electrolytes Treatment plan discussed with patient Questions were answered We have discussed with the other team physicians in detail about the care plan We will continue to monitor the patient closely Total critical care time spent with patient, nursing staff, critical care team over 35 minutes ATTESTATION BY PHYSICIAN I have seen and examined the patient. I reviewed the documentation, medical decision making, and treatment plan as noted by the mid-level provider above. I agree with the findings and plan of care. CHRISTELLE SIMENTAL MD, [facility] Feb 03, 2025 12:55
--- NOTE | 2025-02-03 13:20 | PN ---
[facility] PROGRESS NOTE Date of Service: Feb 03, 2025 Time of Service: 8:20 SUBJECTIVE: 70-year-old female with past medical history of diabetes mellitus type 2, hypertension, anemia, history of CVA, history of right below-knee amputation who presented to the hospital secondary to hematemesis. Patient is currently intubated and sedated. The patient's history is mostly obtained from patient's who is present at bedside and from ED provider. The patient was noted to have black colored vomit at home which started yesterday. She has a history of peptic ulcer disease. She also has a PEG tube placed around two weeks ago. Peg tube was placed in [facility]. Per patient is able to swallow better now. denied any fever, chills, shortness for breath, chest pain. History is fairly limited at this time as patient is not able to participate in conversation. Labs were Notable for white count of 9.1, hemoglobin was 9.1, MCV was 86.7, platelet count was 456 K, sodium was 138, potassium was 3.1, bicarb was , creatinine was 1.7, glucose was 234, alk-phos was 153, total protein was 5.0, albumin was 0.9, lipase was negative normal Underwent a CT abdomen pelvis which showed no acute process in the CT abdomen without IV contrast. Patient was noted to have cystic structure in the right adrenal region measuring 5.9 x 3.9 cm. The patient also had fecal impaction n oted. In the ED patient had episode of hematemesis and she was intubated for airway protection by ED provider. 01/23/2025: The patient is examined at the bedside. She was sedated and not responsive during my visit. GI performed EGD in the morning and they have observed no active bleeding. Nurse notified an unstageable wound on sacrum for which Wound consult is placed today. We will be manage as per critical Care recommendations. 01/24/2025: The patient is examined at the bedside. She was sedated and not responsive during my visit. Her arms are swollen. Her vitals are normal except for blood pressure is 97/51. Her labs are in the normal range except for Hb is 6.6, chloride is 113, BUN is 39, creatinine is 2.4, iron is 28, TIBC is 44, % saturation is 63.6, TSH is 7.62. Her urine culture grew 10,000-50,000 CFU. Identification and susceptibility are in process. Blood culture show no growth after 48 hours. Renal ultrasound show renal parenchymal disease. As her hemoglobin is low she received a blood transfusion. After the transfusion her hemoglobin is 7.1. We ordered a bilateral upper limb doppler which showed evidence of DVT. Gastroenterology was consulted to give recommendations on starting anticoagulation. GI recommended high dose Protonix drip for 48 hours and carafate 1gm PO QID, after 48 hours start heparin drip. IR was called to ask about the option of placing an SVC filter, and they recommended mechanical thrombectomy. The patient is not a good candidate for an SVC filter. A urinalysis, urine electrolytes, urine protein were ordered today. Urinalysis showed turbid urine, protein >300, ketones 5, moderate occult blood, moderate leukocyte esterase, RBC 6 to 10, WBC is TNTC, protein 410.9, sodium is 43, p otassium is 36, chloride is 40. 01/25/2025: The patient is examined at the bedside. She was sedated and not responsive during my visit. Her arms are swollen. Her vitals are normal. Her labs are in the normal range except for Hb is 5.9, WBC is 11.2, Cl is 112, potassium is 3.2, CO2 is 19, BUN is 40 creatinine is 2.6. As her hemoglobin is low we gave a tr ansfusion and the repeat Hb is 7.4. Gastroenterology will do EGD and colonoscopy tomorrow morning. Hematology is consulted and they recommended same management. Wound care recommended to cleanse with normal saline, pat dry, apply medihoney, cover with allevyn, change daily and prnKeep wounds clean and dry , Offloading/reposition q 2 hours. Bleeding scan showed no evidence of gastrointestinal hemorrhage. 01/26/2025: The patient is examined at the bedside. She was sedated and not responsive during my visit. Her arms are swollen. Her vitals are normal except for blood pressure which is 96/45. Her labs are in the normal range except for Hb is 8.7, K is 2.8, Cl is 112, CO2 is 19, BUN is 37, creatinine is 2.5, Albumin is 1.1. She is scheduled for an EGD and colonoscopy today. We replaced the potassium and the repeat potassium levels are 2.8 and 3.1. 01/27/2025: Patient is examined at the bedside. She was sedated and not responsive during my visit. Her arms are swollen. Her vitals are normal except for blood pressure which is 94/49. Her labs are in the normal range except for hemoglobin is 8.7, potassium is 2.9, chloride is 112, BUN is 33, creatinine is 2.5, albumin is 1, CRP is 223.1. Urine culture showed ESBL which is sensitive to Zosyn, meropenem and levofloxacin. She underwent endoscopy and colonoscopy yesterday which showed no evidence of bleeding. Gastroenterology recommended to follow within 1 week after discharge. Chest x-ray showed minimal pulmonary congestion. The nurse told us that she will try waking up the patient, extubate her and try spontaneous breathing trial. 01/28/2025: Patient is seen and examined at the bedside. She was sedated and not responsive during my visit. Her vital signs are in the normal range except for blood pressure is 97/55. Labs are in the normal range except for hemoglobin is 8.3, WBCs 12.9, potassium is 3.2, chloride is 100, bicarb is 16, BUN is 33, creatinine is 2.5, glucose is 181, ALP is 154. Yesterday the nurse tried to extubate her but she could not extubate as she is not waking up and she can't not protect her airway. She is currently on heparin drip. Critical care stopped her Protonix drip as she is fluid overloaded and they started protonix 40 mg b.i.d. We will continue to follow recommendations from critical Care and Gastroenterology. 01/29/2025: Patient is seen and examined at the bedside. She was sedated and not responsive during my visit. Her vital signs are in the normal range except for blood pressure is 90/48. Labs are in the normal range except for hemoglobin 7.7, potassium 2.9, sodium 146, chloride 113, bicarbonate 20, BUN 33, creatinine 2.5. Chest x-ray showed that there is an infiltrate in the left lower lung with a left-sided pleural effusion. She is currently on heparin drip and Protonix 40 mg b.i.d. We will continue to follow recommendations from critical Care and Gastroenterology. 01/30/2025: She was evaluated at the bedside this morning. As per nurse she passed black tarry stool this morning. She is sedated and intubated at pain sitting tidal volume 400 mL/minute, FiO2 100%, peep 5 and RR 14. She is on pressor support with Levophed 0.05. The remarkable lab is for hemoglobin 8, ALP 321, albumin 0.8, creatinine 2.5, chloride 112, bicarbonate 20. She is continued on linezolid, Zosyn, levothyroxine, levetiracetam, Protonix, Levophed. Heparin drip held for temporarily because of supratherapeutic APTT. We will continue to follow recommendations from critical Care and Gastroenterology. 01/31/2025: She was seen and evaluated at the bedside this morning. As per nurse she passed greenish colored stool this morning. She is off sedation medicine but not responding to stimuli. CT brain has been ordered for further evaluation. She continues to remain intubated at tidal volume 400 mL/minute, FiO2 30%, peep 5 and RR 14. She is continued on linezolid, and Zosyn. Cr and BUN this morning have been 2.8 and 31 respectively. Urine output in past 24 hours have been 0.0 3ml/kg/hr (75ml). We have ordered ammonia levels this morning. We will continue to follow recommendations from critical Care and Gastroenterology. 02/01/2025: Patient was seen and evaluated at bedside. Her was present besides her. She continues to be unresponsive with sluggish movement of eyes. She is off sedation and vasopressor support. Her CT scan done yesterday showed Ill-defined hypodensity with loss of rodriguez-white matter interface in the right frontal and high parietal lobes concerning for possible infarct. She will further undergo MRI and EEG. Neurology is on the board. Her ammonia levels were elevated (48) for which lactulose was added today. Due to hyperglycemia, sliding scale insulin was also adjusted. 02/02/2025: Patient was seen and evaluated at bedside. She was accompanied by her . Her daughter was on the phone and expressed concerns about the patient. We went over the progress so far and explained patient's condition to the family members. As per , patient did move her arms and open her eyes at night. Her ammonia has jumped up to 106 for which lactulose IA has been added. Sliding scale insulin was adjusted and Lantus was added because of consistent hyperglycemia. Her lactic acid is elevated at 5 and repeat values showed 5.8. Bicarb deficit was also present for which sodium bicarbonate has been added to the patient's medication regimen. Creatinine continues to be elevated by 3.1 and BUN 35. Alkaline phosphatase is also elevated 779. Patient's urine output in the past 24 hours is 150 mL. 02/03/2025: Patient was seen and evaluated at bedside this morning. Her was besides her with whom we discussed patient's current condition. Patient's condition has deteriorated as compared to yesterday with Hb dropping below to 6.8 and Lactic acid rising to 9.2. So far, sodium bicarbonate hasn't improved metabolic acidosis. She remains intubated and on CPAP, undergoing SBT. During my time of evaluation, patient was unresponsive, even to sternal rub. Her Urine output in the past 24 hours has been 200ml. We will follow up with nephrology as well as critical care recommendations regarding patient's condition. REVIEW OF SYSTEMS Unable to obtain as patient is sedated PHYSICAL EXAM GENERAL APPEARANCE: She is currently intubated and unresponsive this morning. NEUROLOGICAL: Unable to obtain. HEENT: Face is symmetric. Other examination couldn't be done. NECK: Supple. No submental, submandibular, pre-/postauricular, occipital or supraclavicular lymphadenopathy. CHEST: Normal chest expansion. LUNGS: Absence of any rales, rhonchi or any wheezing. CARDIOVASCULAR: Regular. S1 and S2 normal. No appreciable rubs, murmurs or gallops. ABDOMEN: Soft, nontender, and nondistended. There is no rebound, voluntary guarding, or rigidity. Patient has a PEG tube in place : Deferred. EXTREMITIES: Below-knee amputation of the right lower extremity SKIN: No skin breakdown. Vital Signs (last 8hr) Date Time Temp Pulse Resp B/P (MAP) Pulse Ox O2 Delivery O2 Flow Rate FiO2 02/03/25 11:16 108 30 02/03/25 09:49 103 30 02/03/25 06:30 110 30 02/03/25 06:13 99.0 02/03/25 06:00 30 02/03/25 05:45 117 26 107/72 (84) 99 02/03/25 05:30 115 23 113/59 (77) 99 02/03/25 05:15 108 26 130/78 (95) 98 LABS: Laboratory: Test 02/03/25 11:39 02/03/25 08:30 02/03/25 04:22 02/03/25 03:32 Range/Units Whole Blood Glucose 71 70-110 MG/DL Lactic Acid Level 9.2 H 0.8-2.5 mmol/L White Blood Count 19.2 #H 4.8-10.8 K/uL Red Blood Count 2.28 L 4.00-5.50 MIL/uL Hemoglobin 6.8 *L 12.0-16.0 g/dL Hematocrit 20.0 *L 36-48 % Mean Corpuscular Volume 87.7 79-99 fL Mean Corpuscular Hemoglobin 29.8 27.0-33.0 pg Mean Corpuscular Hemoglobin Concent 34.0 32.0-36.0 g/dL Red Cell Distribution Width 19.1 H 11.0-15.5 % Platelet Count 117 #L 130-400 K/uL Mean Platelet Volume 11.8 H 7.5-10.5 fL Immature Granulocyte % (Auto) 0.8 0-1 % Neutrophils (%) (Auto) 90.3 H 40.0-77.0 % Lymphocytes (%) (Auto) 5.1 L 21.0-51.0 % Monocytes (%) (Auto) 3.2 3.0-13.0 % Eosinophils (%) (Auto) 0.3 0.0-8.0 % Basophils (%) (Auto) 0.3 0.0-5.0 % Neutrophils # (Auto) 17.3 H 1.8-7.7 K/uL Lymphocytes # (Auto) 1.0 1.0-4.8 K/uL Monocytes # (Auto) 0.6 0.1-1.0 K/uL Eosinophils # (Auto) 0.05 0.00-0.70 K/uL Basophils # (Auto) 0.06 0.00-0.20 K/uL Absolute Immature Granulocyte (auto 0.16 0-1 K/uL Nucleated Red Blood Cells 1.5 H 0.0-0.19 % Prothrombin Time 13.5 H 9.6-11.6 SEC Prothromb Time International Ratio 1.31 H 0.85-1.15 Activated Partial Thromboplast Time 56.1 H 26.3-35.5 SEC Sodium Level 147 H 136-145 mmol/L Potassium Level 3.8 3.5-5.1 mmol/L Chloride Level 110 101-111 mmol/L Carbon Dioxide Level 19 L 21-32 mmol/L Blood Urea Nitrogen 41 H 7-18 mg/dL Creatinine 3.2 H 0.5-1.0 mg/dL Glomerular Filtration Rate Calc 15 >90 mL/min Random Glucose 66 L 70-105 mg/dL Total Calcium 8.6 8.5-10.1 mg/dL Phosphorus Level 2.6 2.5-4.9 mg/dL Magnesium Level 1.90 1.80-2.40 mg/dL Ammonia 58 #H 11-32 umol/L C-Reactive Protein, Quantitative 198.20 H 0.5-3.0 mg/L Test 02/03/25 03:12 02/02/25 23:15 02/02/25 10:30 02/02/25 10:07 Range/Units Blood Gas Specimen Type Arterial Arterial Blood pH 7.500 H 7.350-7.450 Arterial Blood Partial Pressure CO2 24 L 32-45 mmHg Arterial Blood Partial Pressure O2 110.1 H 83.0-108.0 mmHg Arterial Blood HCO3 18.2 L 21.0-28.0 mmol/L Arterial Blood Oxygen Saturation 98.5 H 94.0-98.0 % Arterial Blood Base Excess -2.9 L -2.0-3.0 mmol/L Blood Gas Temperature 37.0 35.5-37.0 CELSIUS Blood Gas Respiration Rate 20.0 min. Blood Gas Vent Mode AC ROOM AIR FiO2 30.0 % Blood Gas Tidal Volume 400 ml Blood Gas PEEP 6 cm H2O Blood Gas Specimen Comment LR RN Bedside Glucose Comment Protocol Initiated Urine Color YELLOW YELLOW Urine Appearance TURBID CLEAR Urine pH 5.5 5.0-8.0 Urine Specific Logan 1.030 1.001-1.031 Urine Protein 100 H NEGATIVE mg/dL Urine Glucose (UA) NEGATIVE NEGATIVE mg/dL Urine Ketones NEGATIVE NEGATIVE mg/dL Urine Occult Blood MODERATE H NEGATIVE Urine Nitrate NEGATIVE NEGATIVE Urine Bilirubin NEGATIVE NEGATIVE mg/dL Urine Urobilinogen 0.2 0.2-1.0 mg/dL Urine Leukocyte Esterase 500 H NEGATIVE Sunitha/uL Urine RBC 26-50 H 0-1 /HPF Urine WBC TNTC H 0-1 /HPF Urine WBC Clumps (Auto) MANY 0-1 /HPF Urine Squamous Epithelial Cells MANY 0-2 /HPF Urine Non-Squamous Epithelial Cells 2-5 0-2 /HPF Urine Calcium Oxalate Crystals MANY None Seen /LPF Urine Other Crystals (Auto) 37 None Seen /HPF Urine Amorphous Crystals (Auto) RARE None Seen /LPF Urine Bacteria MOD None Seen /HPF Urine Other Casts 14 None Seen /LPF Urine Yeast MANY None Seen /HPF Urine Yeast with Hyphae MANY None Seen /HPF Venous Blood pH 7.474 H 7.320-7.430 Venous Blood pCO2 at Patient Temp 22 L 38-54 Venous Blood pO2 at Patient Temp 35.3 23.0-48.0 mmHg Venous Blood HCO3 15.9 L 22.0-29.0 Venous Blood Base Excess -6.4 L -2.0-3.0 Venous Blood Total Hemoglobin 9.2 L 12.0-16.0 Sodium (Blood Gas) 139 136-145 MMOL/L Bedside Potassium (Blood Gas) 3.8 3.4-4.5 MMOL/L Bedside Chloride (Blood Gas) 110 H 98-107 MMOL/L Bedside Glucose (Blood Gas) 185 H 65-95 MG/DL Bedside Ionized Calcium (Blood Gas) 1.18 1.15-1.33 MMOL/L Bedside Lactic Acid (Blood Gas) 6.19 *H 0.36-0.75 MMOL/L Test 02/02/25 09:50 02/02/25 05:05 Range/Units Whole Blood Ketones Quantitative < 0.1 0.0-0.6 mmol/L White Cell Morphology Comment See comments Total Bilirubin 0.3 0.2-1.0 mg/dL Aspartate Amino Transf (AST/SGOT) 37 10-37 U/L Alanine Aminotransferase (ALT/SGPT) 11 L 12-78 U/L Alkaline Phosphatase 779 *H 50-136 U/L Total Protein 5.1 L 6.0-8.3 g/dL Albumin 0.8 L 3.5-5.0 g/dL Current Medications Medications (Trade) Dose Ordered Sig/Arik Route PRN Reason Start Time Stop Time Status Last Admin Dose Admin Albumin Human 50 ml @ 0 mls/hr Q8H6 IV 01/24/25 14:00 01/24/25 22:00 DC 01/24/25 20:45 1,200 MLS/HR Artificial Tears (Artificial Tears) 1 DROP OR AD Q8H OU 01/23/25 19:30 02/22/25 19:29 02/03/25 11:40 1 DROP Bumetanide (Bumex 1mg Vial) 1 mg ONCE PRN IVP AFTER TRANSFUSION 01/24/25 08:00 01/24/25 09:23 DC Bumetanide (Bumex 1mg Vial) 2 mg ONCE PRN IVP AFTER TRANSFUSION 01/24/25 14:00 01/24/25 14:00 DC 01/24/25 13:28 2 MG Cefepime HCl (MAXipime 2 gm vial) 2 gm Q24H IVPB 01/23/25 12:00 01/26/25 12:05 DC 01/26/25 11:38 2 GM Ceftriaxone Sodium (ROCEphine 1G INJ) 1 gm Q24H IVPB 01/22/25 12:00 01/22/25 16:25 DC 01/22/25 14:18 1 GM Chlorhexidine Gluconate (Peridex) 15 ml TID MM 01/23/25 21:00 02/06/25 20:59 02/03/25 09:32 15 ML Dexmedetomidine/ Sodium Chloride (PRECEdex 400MCG/ 100ML-NS) 400 mcg PROTOCOL IV 01/27/25 15:30 02/26/25 15:29 Dextrose (D50w) 50 ml AD PRN IV HYPOGLYCEMIA PROTOCOL 01/22/25 15:30 02/21/25 15:29 02/03/25 05:24 50 ML Epoetin Carlton-epbx (Retacrit) 10,000 unit QWEEK SQ 01/31/25 15:00 03/02/25 14:59 01/31/25 15:16 10,000 UNIT Fentanyl Citrate 100 ml @ 2.5 mls/hr PROTOCOL IV 01/22/25 12:00 01/22/25 11:55 DC Fentanyl Citrate 100 ml @ 2.5 mls/hr PROTOCOL IV 01/22/25 12:00 01/27/25 15:35 DC 01/27/25 05:34 2.5 MLS/HR Glucagon (Glucagon 1mg Kit) 1 mg AD PRN IM HYPOGLYCEMIA PROTOCOL 01/22/25 15:30 02/21/25 15:29 Heparin Sodium (Porcine) (HEParin 5,000 UNIT VIAL) *calculation based on ACTUAL B... AD PRN IV HEPARIN PROTOCOL 01/27/25 16:30 02/03/25 09:31 DC Heparin Sodium/ Dextrose 250 ml @ 0 mls/hr Q6H IV 01/27/25 16:30 02/03/25 09:28 DC 01/31/25 17:28 0 MLS/HR Insulin Glargine (LANtus 100 UNITS/ML 10 ML VIAL) 10 units BID@0730,2100 SQ 02/01/25 21:00 02/02/25 09:20 DC 02/02/25 08:08 10 UNITS Insulin Glargine (LANtus 100 UNITS/ML 10 ML VIAL) 20 units BID@0730,2100 SQ 02/02/25 21:00 02/03/25 09:50 DC Insulin Human Regular (humuLIN R 100 UNIT/ML 3ML) INSULIN SLIDING SCAL... ACHS SQ 01/22/25 21:00 01/25/25 20:51 DC 01/25/25 16:29 3 UNIT Insulin Human Regular (humuLIN R 100 UNIT/ML 3ML) INSULIN SLIDING SCAL... Q6H6 SQ 01/26/25 10:00 02/01/25 12:57 DC 02/01/25 11:59 3 UNIT Insulin Human Regular (humuLIN R 100 UNIT/ML 3ML) INSULIN SLIDING SCAL... Q6H6 SQ 02/01/25 18:00 03/03/25 17:59 02/02/25 11:45 6 UNIT Leptospermum [facility] ([facility]) 1 APPLICATION DAILY TP 01/26/25 09:00 02/25/25 08:59 02/03/25 09:39 1 APPL Levetiracetam (kepPRA 500 MG TABLET) 500 mg BID PO 01/22/25 21:00 01/22/25 22:13 DC Levetiracetam 500 mg/Sodium Chloride 100 ml @ 400 mls/hr Q12H9 IV 01/22/25 22:00 02/21/25 21:59 02/03/25 09:52 400 MLS/HR Levothyroxine Sodium (SYNTHroid VIAL 100MCG) 100 mcg SYN IV 01/23/25 06:30 02/22/25 06:29 02/03/25 06:37 100 MCG Linezolid 300 ml @ 150 mls/hr Q12H IV 01/24/25 08:00 02/01/25 12:55 DC 02/01/25 08:10 150 MLS/HR Linezolid 300 ml @ 150 mls/hr Q12H IV 02/02/25 09:30 02/12/25 09:29 02/03/25 09:30 150 MLS/HR Magnesium Sulfate 50 ml @ 0 mls/hr PROTOCOL PRN IV Hypomagnesemia 01/22/25 15:30 02/21/25 15:29 01/29/25 08:35 25 MLS/HR Meropenem (Merrem 1gm) 1 gm Q12H IVPB 02/02/25 09:30 02/02/25 11:06 DC Meropenem (Merrem 1gm) 1 gm Q12H IVPB 02/02/25 13:30 02/12/25 13:29 02/03/25 01:05 1 GM Metronidazole/ Sodium Chloride 100 ml @ 100 mls/hr Q8H6 IVPB 01/22/25 22:00 01/26/25 12:05 DC 01/26/25 06:13 100 MLS/HR Midazolam HCl 50 ml @ 0 mls/hr PROTOCOL IV 01/22/25 12:00 01/27/25 15:35 DC 01/27/25 09:10 5 MLS/HR Norepinephrine 250 ml @ 0 mls/hr PROTOCOL IV 01/22/25 10:00 01/23/25 09:52 DC 01/22/25 14:24 60 MLS/HR Norepinephrine Bitartrate (Norepineph 16 Mg/250ml NS Premix) per protocol PROTOCOL IV 01/23/25 10:00 02/22/25 09:59 02/01/25 20:44 16 MG Octreotide Acetate 1250 mcg/ Sodium Chloride 250 ml @ 0 mls/hr PROTOCOL IV 01/22/25 12:30 01/22/25 12:17 DC Octreotide Acetate 1250 mcg/ Sodium Chloride 250 ml @ 0 mls/hr PROTOCOL IV 01/22/25 12:30 01/24/25 09:23 DC 01/22/25 12:41 5 MLS/HR Pantoprazole Sodium (PROTonix 40MG INJ) 40 mg BID IVP 01/24/25 21:00 01/24/25 15:02 DC Pantoprazole Sodium (PROTonix 40MG INJ) 40 mg BID IVP 01/28/25 21:00 02/27/25 20:59 02/03/25 09:31 40 MG Pantoprazole Sodium 80 mg/ Sodium Chloride 100 ml @ 10 mls/hr Q10H IV 01/22/25 09:00 01/24/25 09:23 DC 01/24/25 09:17 10 MLS/HR Pantoprazole Sodium 80 mg/ Sodium Chloride 100 ml @ 10 mls/hr Q10H IV 01/24/25 15:00 01/28/25 13:39 DC 01/28/25 00:06 10 MLS/HR Pharmacy Profile Note (Pharmacy Communication) 1 each ONCE MISC 01/22/25 12:00 01/22/25 11:53 DC Pharmacy Profile Note (Pharmacy Communication) 1 each ONCE MISC 01/22/25 12:00 01/22/25 11:53 DC Pharmacy Profile Note (Pharmacy Communication) 1 each ONCE MISC 01/23/25 13:00 01/23/25 13:09 DC Pharmacy Profile Note (Pharmacy Communication) 1 each ONCE MISC 01/24/25 08:00 01/24/25 07:51 DC Pharmacy Profile Note (Pharmacy Communication) 1 each ONCE MISC 02/02/25 09:30 02/02/25 09:09 DC Phenylephrine HCl 100 mg/Sodium Chloride 250 ml @ 0 mls/hr AD PRN IV TITRATE 01/22/25 17:00 02/02/25 17:22 DC 01/23/25 09:30 0 MLS/HR Phenylephrine HCl 100 mg/Sodium Chloride 250 ml @ 0 mls/hr PROTOCOL IV 02/02/25 17:30 03/04/25 17:29 Piperacillin Sod/ Tazobactam Sod (Zosyn 3.375gm+NS 50ml) 3.375 gm Q8H IV 01/26/25 12:30 02/01/25 12:55 DC 02/01/25 12:04 3.375 GM Potassium Phosphate 250 ml @ 42 mls/hr PROTOCOL PRN IV PROTOCOL 02/01/25 15:30 03/03/25 15:29 02/01/25 17:21 42 MLS/HR Potassium Chloride 100 ml @ 50 mls/hr AD PRN IV POTASSIUM PROTOCOL 01/22/25 15:30 01/24/25 07:50 DC Potassium Chloride 100 ml @ 100 mls/hr AD PRN IV POTASSIUM PROTOCOL 01/22/25 15:30 02/21/25 15:29 02/01/25 06:18 100 MLS/HR Potassium Chloride (K-Dur/Klor-Con 20meq) 20 meq AD PRN PO POTASSIUM PROTOCOL 01/22/25 15:30 02/21/25 15:29 01/26/25 06:19 20 MEQ Potassium Chloride (KCl 10% Elixir 20meq/15ml) 20 meq AD PRN PO POTASSIUM PROTOCOL 01/22/25 15:30 02/21/25 15:29 02/02/25 03:29 20 MEQ Propofol (DIPRivan 1000MG/ 100ML) 1,000 mg PROTOCOL PRN IV SEDATION 01/22/25 12:00 01/22/25 11:55 DC Sodium Bicarbonate 150 meq/Dextrose 1,150 ml @ 100 mls/hr [id number] IVP 02/02/25 06:00 02/02/25 09:04 DC 02/02/25 05:45 100 MLS/HR Sodium Bicarbonate (Sodium Bicarbonate) 650 mg BID PO 01/24/25 21:00 02/23/25 20:59 02/03/25 09:30 650 MG Sodium Bicarbonate (Sodium Bicarbonate) 650 mg BID PO 02/01/25 21:00 02/01/25 13:00 DC Sodium Bicarbonate (Sodium Bicarb 50meq 50ml Vial) 50 meq Q6H IV 02/02/25 15:00 02/04/25 14:59 02/03/25 02:40 50 MEQ Sodium Chloride 1,000 ml @ 150 mls/hr Q6H40M IV 01/22/25 12:00 01/23/25 10:56 DC 01/23/25 02:45 150 MLS/HR Sucralfate (Carafate) 1 gm BID PO 01/23/25 21:00 01/23/25 11:41 DC Sucralfate (Carafate) 1 gm BID PO 02/02/25 21:00 02/23/25 16:59 02/03/25 09:30 1 GM Sucralfate (Carafate) 1 gm QID PO 01/24/25 17:00 02/02/25 18:53 DC 02/02/25 17:25 1 GM Sucralfate (Carafate) 1 gm TID PO 01/23/25 14:00 01/24/25 15:02 DC 01/24/25 13:28 1 GM Thiamine HCl 100 mg/Sodium Chloride 50 ml @ 100 mls/hr Q24H IV 01/23/25 14:00 01/25/25 14:29 DC 01/25/25 13:53 100 MLS/HR Vancomycin HCl (Vancomycin 750mg) 750 mg Q24H IVPB 01/23/25 17:00 01/23/25 10:56 DC Vancomycin HCl (Vancomycin Protocol) 1 each AD IV 01/22/25 15:00 01/23/25 10:56 DC Vasopressin 40 units/Sodium Chloride 40 ml @ 0 mls/hr PROTOCOL IV 01/25/25 09:30 02/24/25 09:29 Wound Care/ Dressing Products (Venelex Ointment) BID TP 01/25/25 21:00 01/25/25 15:58 DC DIAGNOSTICS / RADIOLOGY: [ ] ASSESSMENT: Hematemesis POA Acute metabolic encephalopathy Cerebrovascular accident-chronic infarct as per MRI brain Hemorrhagic shock Acute complicated cystitis - ESBL Oliguria - urine output 0.03 mL/kg per hour (01/31/25) Acute hypoxic respiratory failure status post intubation for airway protection Peg tube placement Hyperammonemia Lactic acidosis Peptic ulcer disease DVT of bilateral upper limbs Starvation ketoacidosis Hypokalemia Hypophosphatemia Unstageable wound on sacrum Fecal impaction Obesity BMI 36.6 Knee injury versus underlying CKD Diabetes mellitus type 2 with associated hyperglycemia Severe hypoalbuminemia Hypertension Debility Small pericardial Effusion Left-sided pleural effusion PLAN: Hematemesis, peptic ulcer disease, POA - patient was admitted to ICU - in reference to hematemesis. H&H was trended q.4 hours. Type and screen was done. Plan is to keep hemoglobin above 7. On 01/25/2025 her hemoglobin was 5.9, we gave 1 PRBC. Repeat Hb is 7.4. - The patient was started on Protonix drip and octreotide drip. Critical care stopped her Protonix drip as she was fluid overloaded and they started protonix 40 mg b.i.d. - EGD done by Gastroenterology and have reported no active bleeding and clots in esophagus. - GI wanted to do another EGD, and colonoscopy showed no evidence of bleeding. - Bleeding scan showed no evidence of gastrointestinal hemorrhage. - gastroenterology recommended follow with them in 1 week after discharge. - Today her hemoglobin is 8.3 - We will continue to follow recommendations from critical Care and Gastroenterology. Acute hypoxic respiratory failure status post intubation for airway protection - critical care is on board and we will follow critical care recommendations regarding ventilator and sedation protocol - currently on ACVC, TV 400, RR 14, Fio2 30%, PEEP 5. - On 01/27/2025, nurse told us that she will try to wake up the patient, extubate her and try spontaneous breathing trial. -The nurse tried to extubate her but she could not extubate as she is not waking up and she can't not protect her airway. Cerebrovascular accident - chronic infarct - CT scan of the brain on 01/31/2025 showed 1. Ill-defined hypodensity with loss of rodriguez-white matter interface in the right frontal and high parietal lobes concerning for possible infarct. No acute intracranial hemorrhage. - MRI brain showed Chronic infarct in the right frontal and parietal lobes. 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 Bilateral sphenoid sinusitis and mastoiditis. - Follow up with the Neurology recommendations. - For consistent hyperglycemia, Lantus was added and sliding scale insulin was adjusted. Hemorrhagic shock - patient was placed on ON LEVOPHED. Later on, She was taken off vasopressors support. - On 02/02, Levophed was restarted at 0.04 due to hypotension. - we will follow critical Care recommendations in managing hemorrhagic shock Oliguria - Patient's urine output on 01/31/2025 was 0.03 mL/kg per hour with Total urine output, 75 mL. - On 02/02/2025, total urine output is 150 mL - Patient's creatinine and BUN from today are 3.1 and 35 respectively. - Monitor input and output as well as electrolytes. - Avoid nephrotoxic drugs. - Evaluate patient for volume overload and fluid repletion. - Patient was given 500 mL lactated Ringer this morning. - Follow up with the Nephrology recommendations Acute metabolic encephalopathy, Hyperammonemia, lactic acidosis - Her ammonia levels from 01/31/2025 were 48. Lactulose p.o. was added on 02/01. - On 02/02, ammonia levels were again elevated 106. Lactulose IA has been added. - Follow up with ammonia levels in the morning. - On 02/02, lactic acid is elevated by 5. Repeat values showed 5.8. Patient's anion gap is also elevated. ABG showed pH 7.44, pCO2 19, HC03 12.9 - Patient has bicarb deficit for which sodium bicarbonate has been added to the medication regimen. - Follow up with the BMP q.6 H and trend lactic acid. - Follow up with the blood culture, urine culture, stool culture, respiratory culture to identify the suspected source of infection. Acute complicated cystitis - ESBL - Patient's urine culture came back positive for ESBL E coli - Patient was started on Zosyn q.8h and linezolid q.12h. - On 02/02, patient has been switched to Merrem and linezolid. DVT of bilateral upper limbs -US doppler of both upper limbs, results showed evidence of DVT. -Consulted gastroenterology for anticoagulation recommendations. They recommended to give high dose Protonix drip for 48 hours and carafate 1gm PO QID and after 48 hours start heparin drip. -Patient is not a candidate for SVC filter. -for supratherapeutic aPTT, heparin drip was held temporarily Starvation ketoacidosis Today her blood work show that sodium is 142, potassium is 2.8, chloride is 109, bicarbonate is 18. Her urinalysis from 01/24/2025 showed ketones in the urine. Unstageable wound on sacrum - we will request wound care -Wound care recommended to cleanse with normal saline, pat dry, apply medihoney, cover with allevyn, change daily and prnKeep wounds clean and dry , Offloading/reposition q 2 hours Hypokalemia Today her blood work showed that potassium is 4.4. She is being maintained on potassium replacement protocol Will repeat her labs tomorrow. Diabetes mellitus type 2 with associated hyperglycemia, Severe hypoalbuminemia, Hypertension, Debility, Small pericardial Effusion, Left-sided pleural effusion - echo showed no pericardial effusion, LVEF of 50-55% - continue insulin sliding scale. It was adjusted on 02/01 as per glucose levels. Lantus was also started. - continue thiamine supplementation - monitor vitals Q8 - monitor a.m. labs - nephrology was consulted and they recommended to discontinue vancomycin, obtain urine analysis and complete renal ultrasound. Patient was started on meropenem and linezolid on 02/02 -Repeated urinalysis, urine electrolytes, urine protein on 01/24/2025. Urinalysis showed turbid urine, protein >300, ketones 5, moderate occult blood, moderate leukocyte esterase, RBC 6 to 10, WBC is TNTC, protein 410.9, sodium is 43, potassium is 36, chloride is 40. GI prophylaxis: Pantoprazole LOLA CHEUNG MD Feb 03, 2025 13:20
[2025-02-03] MEDS: ALBUMIN (HUMAN) 25% 50 ML IV ONE (14:51)
--- NOTE | 2025-02-03 15:16 | NUR ---
[facility] Follow-up: Patient re-assessed by wound healing team. See wound assessment. Assessment and recommendations provided to primary nurse. Education provided. Addendum: 02/03/25 at 1606 by IVANIA ANDREW RN RN/ Amended: Links added.
--- NOTE | 2025-02-03 15:49 | PN ---
PROGRESS NOTE Date of Service: Feb 03, 2025 Time of Service: 15:48 SUBJECTIVE: Patient evaluated at bedside in room 217 for wound care follow up. Patient is intubated at this time. REVIEW OF SYSTEMS Unable to complete patient is intubated and sedated PHYSICAL EXAM EYES: Anicteric. Pupils equal and reactive. HENT: No oral thrush seen, moist Oral mucosa NECK: Supple, no JVD or thyromegaly. LUNGS: decreased breath sounds CARDIOVASCULAR: S1, S2 regular. No murmur heard. ABDOMEN: Soft, non tender, bowel sounds present, no organomegaly CENTRAL NERVOUS SYSTEM: intubated and sedated SKIN: Unstageable ulcer to left buttock noted with 100% slough with periwound erythema and unstageable ulcer to coccyx noted with 100% slough and periwound erythema LYMPHATICS: No peripheral lymphadenopathy MUSCULOSKELETAL: Right BKA EXTREMITIES: No cyanosis or clubbing BACK: No deformity GENITOURINARY: No dysuria or hematuria Vital Signs (last 8hr) Date Time Temp Pulse Resp B/P (MAP) Pulse Ox O2 Delivery O2 Flow Rate FiO2 02/03/25 14:45 119 30 02/03/25 11:16 108 30 02/03/25 09:49 103 30 LABS: Laboratory: Test 02/03/25 11:39 02/03/25 08:30 02/03/25 04:22 02/03/25 03:32 Range/Units Whole Blood Glucose 71 70-110 MG/DL Lactic Acid Level 9.2 H 0.8-2.5 mmol/L White Blood Count 19.2 #H 4.8-10.8 K/uL Red Blood Count 2.28 L 4.00-5.50 MIL/uL Hemoglobin 6.8 *L 12.0-16.0 g/dL Hematocrit 20.0 *L 36-48 % Mean Corpuscular Volume 87.7 79-99 fL Mean Corpuscular Hemoglobin 29.8 27.0-33.0 pg Mean Corpuscular Hemoglobin Concent 34.0 32.0-36.0 g/dL Red Cell Distribution Width 19.1 H 11.0-15.5 % Platelet Count 117 #L 130-400 K/uL Mean Platelet Volume 11.8 H 7.5-10.5 fL Immature Granulocyte % (Auto) 0.8 0-1 % Neutrophils (%) (Auto) 90.3 H 40.0-77.0 % Lymphocytes (%) (Auto) 5.1 L 21.0-51.0 % Monocytes (%) (Auto) 3.2 3.0-13.0 % Eosinophils (%) (Auto) 0.3 0.0-8.0 % Basophils (%) (Auto) 0.3 0.0-5.0 % Neutrophils # (Auto) 17.3 H 1.8-7.7 K/uL Lymphocytes # (Auto) 1.0 1.0-4.8 K/uL Monocytes # (Auto) 0.6 0.1-1.0 K/uL Eosinophils # (Auto) 0.05 0.00-0.70 K/uL Basophils # (Auto) 0.06 0.00-0.20 K/uL Absolute Immature Granulocyte (auto 0.16 0-1 K/uL Nucleated Red Blood Cells 1.5 H 0.0-0.19 % Prothrombin Time 13.5 H 9.6-11.6 SEC Prothromb Time International Ratio 1.31 H 0.85-1.15 Activated Partial Thromboplast Time 56.1 H 26.3-35.5 SEC Sodium Level 147 H 136-145 mmol/L Potassium Level 3.8 3.5-5.1 mmol/L Chloride Level 110 101-111 mmol/L Carbon Dioxide Level 19 L 21-32 mmol/L Blood Urea Nitrogen 41 H 7-18 mg/dL Creatinine 3.2 H 0.5-1.0 mg/dL Glomerular Filtration Rate Calc 15 >90 mL/min Random Glucose 66 L 70-105 mg/dL Total Calcium 8.6 8.5-10.1 mg/dL Phosphorus Level 2.6 2.5-4.9 mg/dL Magnesium Level 1.90 1.80-2.40 mg/dL Ammonia 58 #H 11-32 umol/L C-Reactive Protein, Quantitative 198.20 H 0.5-3.0 mg/L Test 02/03/25 03:12 02/02/25 23:15 02/02/25 10:30 02/02/25 10:07 Range/Units Blood Gas Specimen Type Arterial Arterial Blood pH 7.500 H 7.350-7.450 Arterial Blood Partial Pressure CO2 24 L 32-45 mmHg Arterial Blood Partial Pressure O2 110.1 H 83.0-108.0 mmHg Arterial Blood HCO3 18.2 L 21.0-28.0 mmol/L Arterial Blood Oxygen Saturation 98.5 H 94.0-98.0 % Arterial Blood Base Excess -2.9 L -2.0-3.0 mmol/L Blood Gas Temperature 37.0 35.5-37.0 CELSIUS Blood Gas Respiration Rate 20.0 min. Blood Gas Vent Mode AC ROOM AIR FiO2 30.0 % Blood Gas Tidal Volume 400 ml Blood Gas PEEP 6 cm H2O Blood Gas Specimen Comment LR RN Bedside Glucose Comment Protocol Initiated Urine Color YELLOW YELLOW Urine Appearance TURBID CLEAR Urine pH 5.5 5.0-8.0 Urine Specific [place] 1.030 1.001-1.031 Urine Protein 100 H NEGATIVE mg/dL Urine Glucose (UA) NEGATIVE NEGATIVE mg/dL Urine Ketones NEGATIVE NEGATIVE mg/dL Urine Occult Blood MODERATE H NEGATIVE Urine Nitrate NEGATIVE NEGATIVE Urine Bilirubin NEGATIVE NEGATIVE mg/dL Urine Urobilinogen 0.2 0.2-1.0 mg/dL Urine Leukocyte Esterase 500 H NEGATIVE Sunitha/uL Urine RBC 26-50 H 0-1 /HPF Urine WBC TNTC H 0-1 /HPF Urine WBC Clumps (Auto) MANY 0-1 /HPF Urine Squamous Epithelial Cells MANY 0-2 /HPF Urine Non-Squamous Epithelial Cells 2-5 0-2 /HPF Urine Calcium Oxalate Crystals MANY None Seen /LPF Urine Other Crystals (Auto) 37 None Seen /HPF Urine Amorphous Crystals (Auto) RARE None Seen /LPF Urine Bacteria MOD None Seen /HPF Urine Other Casts 14 None Seen /LPF Urine Yeast MANY None Seen /HPF Urine Yeast with Hyphae MANY None Seen /HPF Venous Blood pH 7.474 H 7.320-7.430 Venous Blood pCO2 at Patient Temp 22 L 38-54 Venous Blood pO2 at Patient Temp 35.3 23.0-48.0 mmHg Venous Blood HCO3 15.9 L 22.0-29.0 Venous Blood Base Excess -6.4 L -2.0-3.0 Venous Blood Total Hemoglobin 9.2 L 12.0-16.0 Sodium (Blood Gas) 139 136-145 MMOL/L Bedside Potassium (Blood Gas) 3.8 3.4-4.5 MMOL/L Bedside Chloride (Blood Gas) 110 H 98-107 MMOL/L Bedside Glucose (Blood Gas) 185 H 65-95 MG/DL Bedside Ionized Calcium (Blood Gas) 1.18 1.15-1.33 MMOL/L Bedside Lactic Acid (Blood Gas) 6.19 *H 0.36-0.75 MMOL/L Test 02/02/25 09:50 02/02/25 05:05 Range/Units Whole Blood Ketones Quantitative < 0.1 0.0-0.6 mmol/L White Cell Morphology Comment See comments Total Bilirubin 0.3 0.2-1.0 mg/dL Aspartate Amino Transf (AST/SGOT) 37 10-37 U/L Alanine Aminotransferase (ALT/SGPT) 11 L 12-78 U/L Alkaline Phosphatase 779 *H 50-136 U/L Total Protein 5.1 L 6.0-8.3 g/dL Albumin 0.8 L 3.5-5.0 g/dL PROBLEM LIST : Medical Problems: Unstageable ulcer to coccyx Unstageable ulcer to left buttock Open wound to left gluteal fold Open wounds of right lower leg Open wounds of left lower leg Irritant contact dermatitis PLAN: Wound care for coccyx and left buttock-Cleanse with normal saline, pat dry, apply medihoney, cover with allevyn, change daily and prn Wound care to Left and right lower leg open wound-Cleanse with normal saline, pat dry, apply medihoney, cover with Vaseline gauze/adaptic, gauze, secure with tape change daily and prn Wound care to left gluteal fold- apply Venelex with nystatin powder BID and PRN Wound care to left and right lower leg fluid filled blister- paint with Betadine daily, leave open to air. Keep wounds clean and dry Offloading/reposition q 2 hours Comorbidities per primary care team Further Management per hospital course. Thank You for the consult and allowing us to participate in the care of this patient. ATTESTATION BY PHYSICIAN I have seen and examined the patient. I reviewed the documentation, medical decision making, and treatment plan as noted by the mid-level provider above. I agree with the findings and plan of care. KRISTIN HERRERA MD, MICHELLE A [employer] Feb 03, 2025 15:49
--- NOTE | 2025-02-03 16:24 | PN ---
[facility] PROGRESS NOTE Date of Service: Feb 03, 2025 Time of Service: 9:20 SUBJECTIVE: 70-year-old female with past medical history of diabetes mellitus type 2, hypertension, anemia, history of CVA, history of right below-knee amputation who presented to the hospital secondary to hematemesis. Patient is currently intubated and sedated. The patient's history is mostly obtained from patient's who is present at bedside and from ED provider. The patient was noted to have black colored vomit at home which started yesterday. She has a history of peptic ulcer disease. She also has a PEG tube placed around two weeks ago. Peg tube was placed in [facility]. Per patient is able to swallow better now. denied any fever, chills, shortness for breath, chest pain. History is fairly limited at this time as patient is not able to participate in conversation. Labs were Notable for white count of 9.1, hemoglobin was 9.1, MCV was 86.7, platelet count was 456 K, sodium was 138, potassium was 3.1, bicarb was , creatinine was 1.7, glucose was 234, alk-phos was 153, total protein was 5.0, albumin was 0.9, lipase was negative normal Underwent a CT abdomen pelvis which showed no acute process in the CT abdomen without IV contrast. Patient was noted to have cystic structure in the right adrenal region measuring 5.9 x 3.9 cm. The patient also had fecal impaction n oted. In the ED patient had episode of hematemesis and she was intubated for airway protection by ED provider. 01/23/2025: The patient is examined at the bedside. She was sedated and not responsive during my visit. GI performed EGD in the morning and they have observed no active bleeding. Nurse notified an unstageable wound on sacrum for which Wound consult is placed today. We will be manage as per critical Care recommendations. 01/24/2025: The patient is examined at the bedside. She was sedated and not responsive during my visit. Her arms are swollen. Her vitals are normal except for blood pressure is 97/51. Her labs are in the normal range except for Hb is 6.6, chloride is 113, BUN is 39, creatinine is 2.4, iron is 28, TIBC is 44, % saturation is 63.6, TSH is 7.62. Her urine culture grew 10,000-50,000 CFU. Identification and susceptibility are in process. Blood culture show no growth after 48 hours. Renal ultrasound show renal parenchymal disease. As her hemoglobin is low she received a blood transfusion. After the transfusion her hemoglobin is 7.1. We ordered a bilateral upper limb doppler which showed evidence of DVT. Gastroenterology was consulted to give recommendations on starting anticoagulation. GI recommended high dose Protonix drip for 48 hours and carafate 1gm PO QID, after 48 hours start heparin drip. IR was called to ask about the option of placing an SVC filter, and they recommended mechanical thrombectomy. The patient is not a good candidate for an SVC filter. A urinalysis, urine electrolytes, urine protein were ordered today. Urinalysis showed turbid urine, protein >300, ketones 5, moderate occult blood, moderate leukocyte esterase, RBC 6 to 10, WBC is TNTC, protein 410.9, sodium is 43, p otassium is 36, chloride is 40. 01/25/2025: The patient is examined at the bedside. She was sedated and not responsive during my visit. Her arms are swollen. Her vitals are normal. Her labs are in the normal range except for Hb is 5.9, WBC is 11.2, Cl is 112, potassium is 3.2, CO2 is 19, BUN is 40 creatinine is 2.6. As her hemoglobin is low we gave a tr ansfusion and the repeat Hb is 7.4. Gastroenterology will do EGD and colonoscopy tomorrow morning. Hematology is consulted and they recommended same management. Wound care recommended to cleanse with normal saline, pat dry, apply medihoney, cover with allevyn, change daily and prnKeep wounds clean and dry , Offloading/reposition q 2 hours. Bleeding scan showed no evidence of gastrointestinal hemorrhage. 01/26/2025: The patient is examined at the bedside. She was sedated and not responsive during my visit. Her arms are swollen. Her vitals are normal except for blood pressure which is 96/45. Her labs are in the normal range except for Hb is 8.7, K is 2.8, Cl is 112, CO2 is 19, BUN is 37, creatinine is 2.5, Albumin is 1.1. She is scheduled for an EGD and colonoscopy today. We replaced the potassium and the repeat potassium levels are 2.8 and 3.1. 01/27/2025: Patient is examined at the bedside. She was sedated and not responsive during my visit. Her arms are swollen. Her vitals are normal except for blood pressure which is 94/49. Her labs are in the normal range except for hemoglobin is 8.7, potassium is 2.9, chloride is 112, BUN is 33, creatinine is 2.5, albumin is 1, CRP is 223.1. Urine culture showed ESBL which is sensitive to Zosyn, meropenem and levofloxacin. She underwent endoscopy and colonoscopy yesterday which showed no evidence of bleeding. Gastroenterology recommended to follow within 1 week after discharge. Chest x-ray showed minimal pulmonary congestion. The nurse told us that she will try waking up the patient, extubate her and try spontaneous breathing trial. 01/28/2025: Patient is seen and examined at the bedside. She was sedated and not responsive during my visit. Her vital signs are in the normal range except for blood pressure is 97/55. Labs are in the normal range except for hemoglobin is 8.3, WBCs 12.9, potassium is 3.2, chloride is 100, bicarb is 16, BUN is 33, creatinine is 2.5, glucose is 181, ALP is 154. Yesterday the nurse tried to extubate her but she could not extubate as she is not waking up and she can't not protect her airway. She is currently on heparin drip. Critical care stopped her Protonix drip as she is fluid overloaded and they started protonix 40 mg b.i.d. We will continue to follow recommendations from critical Care and Gastroenterology. 01/29/2025: Patient is seen and examined at the bedside. She was sedated and not responsive during my visit. Her vital signs are in the normal range except for blood pressure is 90/48. Labs are in the normal range except for hemoglobin 7.7, potassium 2.9, sodium 146, chloride 113, bicarbonate 20, BUN 33, creatinine 2.5. Chest x-ray showed that there is an infiltrate in the left lower lung with a left-sided pleural effusion. She is currently on heparin drip and Protonix 40 mg b.i.d. We will continue to follow recommendations from critical Care and Gastroenterology. 01/30/2025: She was evaluated at the bedside this morning. As per nurse she passed black tarry stool this morning. She is sedated and intubated at pain sitting tidal volume 400 mL/minute, FiO2 100%, peep 5 and RR 14. She is on pressor support with Levophed 0.05. The remarkable lab is for hemoglobin 8, ALP 321, albumin 0.8, creatinine 2.5, chloride 112, bicarbonate 20. She is continued on linezolid, Zosyn, levothyroxine, levetiracetam, Protonix, Levophed. Heparin drip held for temporarily because of supratherapeutic APTT. We will continue to follow recommendations from critical Care and Gastroenterology. 01/31/2025: She was seen and evaluated at the bedside this morning. As per nurse she passed greenish colored stool this morning. She is off sedation medicine but not responding to stimuli. CT brain has been ordered for further evaluation. She continues to remain intubated at tidal volume 400 mL/minute, FiO2 30%, peep 5 and RR 14. She is continued on linezolid, and Zosyn. Cr and BUN this morning have been 2.8 and 31 respectively. Urine output in past 24 hours have been 0.0 3ml/kg/hr (75ml). We have ordered ammonia levels this morning. We will continue to follow recommendations from critical Care and Gastroenterology. 02/01/2025: Patient was seen and evaluated at bedside. Her was present besides her. She continues to be unresponsive with sluggish movement of eyes. She is off sedation and vasopressor support. Her CT scan done yesterday showed Ill-defined hypodensity with loss of rodriguez-white matter interface in the right frontal and high parietal lobes concerning for possible infarct. She will further undergo MRI and EEG. Neurology is on the board. Her ammonia levels were elevated (48) for which lactulose was added today. Due to hyperglycemia, sliding scale insulin was also adjusted. 02/02/2025: Patient was seen and evaluated at bedside. She was accompanied by her . Her daughter was on the phone and expressed concerns about the patient. We went over the progress so far and explained patient's condition to the family members. As per , patient did move her arms and open her eyes at night. Her ammonia has jumped up to 106 for which lactulose MI has been added. Sliding scale insulin was adjusted and Lantus was added because of consistent hyperglycemia. Her lactic acid is elevated at 5 and repeat values showed 5.8. Bicarb deficit was also present for which sodium bicarbonate has been added to the patient's medication regimen. Creatinine continues to be elevated by 3.1 and BUN 35. Alkaline phosphatase is also elevated 779. Patient's urine output in the past 24 hours is 150 mL. 02/03/2025: Patient was seen and evaluated at bedside this morning. Her was besides her with whom we discussed patient's current condition. Patient's condition has deteriorated as compared to yesterday with Hb dropping below to 6.8 and Lactic acid rising to 9.2. So far, sodium bicarbonate hasn't improved metabolic acidosis. She remains intubated and on CPAP, undergoing SBT. During my time of evaluation, patient was unresponsive, even to sternal rub. Her Urine output in the past 24 hours has been 200ml. We will follow up with nephrology as well as critical care recommendations regarding patient's condition. REVIEW OF SYSTEMS Unable to obtain as patient is sedated PHYSICAL EXAM GENERAL APPEARANCE: She is currently intubated and unresponsive this morning. On CPAP trial. NEUROLOGICAL: Unable to obtain. HEENT: Face is symmetric. Other examination couldn't be done. NECK: Supple. No submental, submandibular, pre-/postauricular, occipital or supraclavicular lymphadenopathy. CHEST: Normal chest expansion. LUNGS: Absence of any rales, rhonchi or any wheezing. CARDIOVASCULAR: Regular. S1 and S2 normal. No appreciable rubs, murmurs or gallops. ABDOMEN: Soft, nontender, and nondistended. There is no rebound, voluntary guarding, or rigidity. Patient has a PEG tube in place : Deferred. EXTREMITIES: Below-knee amputation of the right lower extremity SKIN: No skin breakdown. Vital Signs (last 8hr) Date Time Temp Pulse Resp B/P (MAP) Pulse Ox O2 Delivery O2 Flow Rate FiO2 02/03/25 14:45 119 30 02/03/25 11:16 108 30 02/03/25 09:49 103 30 LABS: Laboratory: Test 02/03/25 11:39 02/03/25 08:30 02/03/25 04:22 02/03/25 03:32 Range/Units Whole Blood Glucose 71 70-110 MG/DL Lactic Acid Level 9.2 H 0.8-2.5 mmol/L White Blood Count 19.2 #H 4.8-10.8 K/uL Red Blood Count 2.28 L 4.00-5.50 MIL/uL Hemoglobin 6.8 *L 12.0-16.0 g/dL Hematocrit 20.0 *L 36-48 % Mean Corpuscular Volume 87.7 79-99 fL Mean Corpuscular Hemoglobin 29.8 27.0-33.0 pg Mean Corpuscular Hemoglobin Concent 34.0 32.0-36.0 g/dL Red Cell Distribution Width 19.1 H 11.0-15.5 % Platelet Count 117 #L 130-400 K/uL Mean Platelet Volume 11.8 H 7.5-10.5 fL Immature Granulocyte % (Auto) 0.8 0-1 % Neutrophils (%) (Auto) 90.3 H 40.0-77.0 % Lymphocytes (%) (Auto) 5.1 L 21.0-51.0 % Monocytes (%) (Auto) 3.2 3.0-13.0 % Eosinophils (%) (Auto) 0.3 0.0-8.0 % Basophils (%) (Auto) 0.3 0.0-5.0 % Neutrophils # (Auto) 17.3 H 1.8-7.7 K/uL Lymphocytes # (Auto) 1.0 1.0-4.8 K/uL Monocytes # (Auto) 0.6 0.1-1.0 K/uL Eosinophils # (Auto) 0.05 0.00-0.70 K/uL Basophils # (Auto) 0.06 0.00-0.20 K/uL Absolute Immature Granulocyte (auto 0.16 0-1 K/uL Nucleated Red Blood Cells 1.5 H 0.0-0.19 % Prothrombin Time 13.5 H 9.6-11.6 SEC Prothromb Time International Ratio 1.31 H 0.85-1.15 Activated Partial Thromboplast Time 56.1 H 26.3-35.5 SEC Sodium Level 147 H 136-145 mmol/L Potassium Level 3.8 3.5-5.1 mmol/L Chloride Level 110 101-111 mmol/L Carbon Dioxide Level 19 L 21-32 mmol/L Blood Urea Nitrogen 41 H 7-18 mg/dL Creatinine 3.2 H 0.5-1.0 mg/dL Glomerular Filtration Rate Calc 15 >90 mL/min Random Glucose 66 L 70-105 mg/dL Total Calcium 8.6 8.5-10.1 mg/dL Phosphorus Level 2.6 2.5-4.9 mg/dL Magnesium Level 1.90 1.80-2.40 mg/dL Ammonia 58 #H 11-32 umol/L C-Reactive Protein, Quantitative 198.20 H 0.5-3.0 mg/L Test 02/03/25 03:12 02/02/25 23:15 02/02/25 10:30 02/02/25 10:07 Range/Units Blood Gas Specimen Type Arterial Arterial Blood pH 7.500 H 7.350-7.450 Arterial Blood Partial Pressure CO2 24 L 32-45 mmHg Arterial Blood Partial Pressure O2 110.1 H 83.0-108.0 mmHg Arterial Blood HCO3 18.2 L 21.0-28.0 mmol/L Arterial Blood Oxygen Saturation 98.5 H 94.0-98.0 % Arterial Blood Base Excess -2.9 L -2.0-3.0 mmol/L Blood Gas Temperature 37.0 35.5-37.0 CELSIUS Blood Gas Respiration Rate 20.0 min. Blood Gas Vent Mode AC ROOM AIR FiO2 30.0 % Blood Gas Tidal Volume 400 ml Blood Gas PEEP 6 cm H2O Blood Gas Specimen Comment LR RN Bedside Glucose Comment Protocol Initiated Urine Color YELLOW YELLOW Urine Appearance TURBID CLEAR Urine pH 5.5 5.0-8.0 Urine Specific [place] 1.030 1.001-1.031 Urine Protein 100 H NEGATIVE mg/dL Urine Glucose (UA) NEGATIVE NEGATIVE mg/dL Urine Ketones NEGATIVE NEGATIVE mg/dL Urine Occult Blood MODERATE H NEGATIVE Urine Nitrate NEGATIVE NEGATIVE Urine Bilirubin NEGATIVE NEGATIVE mg/dL Urine Urobilinogen 0.2 0.2-1.0 mg/dL Urine Leukocyte Esterase 500 H NEGATIVE Sunitha/uL Urine RBC 26-50 H 0-1 /HPF Urine WBC TNTC H 0-1 /HPF Urine WBC Clumps (Auto) MANY 0-1 /HPF Urine Squamous Epithelial Cells MANY 0-2 /HPF Urine Non-Squamous Epithelial Cells 2-5 0-2 /HPF Urine Calcium Oxalate Crystals MANY None Seen /LPF Urine Other Crystals (Auto) 37 None Seen /HPF Urine Amorphous Crystals (Auto) RARE None Seen /LPF Urine Bacteria MOD None Seen /HPF Urine Other Casts 14 None Seen /LPF Urine Yeast MANY None Seen /HPF Urine Yeast with Hyphae MANY None Seen /HPF Venous Blood pH 7.474 H 7.320-7.430 Venous Blood pCO2 at Patient Temp 22 L 38-54 Venous Blood pO2 at Patient Temp 35.3 23.0-48.0 mmHg Venous Blood HCO3 15.9 L 22.0-29.0 Venous Blood Base Excess -6.4 L -2.0-3.0 Venous Blood Total Hemoglobin 9.2 L 12.0-16.0 Sodium (Blood Gas) 139 136-145 MMOL/L Bedside Potassium (Blood Gas) 3.8 3.4-4.5 MMOL/L Bedside Chloride (Blood Gas) 110 H 98-107 MMOL/L Bedside Glucose (Blood Gas) 185 H 65-95 MG/DL Bedside Ionized Calcium (Blood Gas) 1.18 1.15-1.33 MMOL/L Bedside Lactic Acid (Blood Gas) 6.19 *H 0.36-0.75 MMOL/L Test 02/02/25 09:50 02/02/25 05:05 Range/Units Whole Blood Ketones Quantitative < 0.1 0.0-0.6 mmol/L White Cell Morphology Comment See comments Total Bilirubin 0.3 0.2-1.0 mg/dL Aspartate Amino Transf (AST/SGOT) 37 10-37 U/L Alanine Aminotransferase (ALT/SGPT) 11 L 12-78 U/L Alkaline Phosphatase 779 *H 50-136 U/L Total Protein 5.1 L 6.0-8.3 g/dL Albumin 0.8 L 3.5-5.0 g/dL Current Medications Medications (Trade) Dose Ordered Sig/Arik Route PRN Reason Start Time Stop Time Status Last Admin Dose Admin Albumin Human 50 ml @ 0 mls/hr Q8H6 IV 01/24/25 14:00 01/24/25 22:00 DC 01/24/25 20:45 1,200 MLS/HR Artificial Tears (Artificial Tears) 1 DROP OR AD Q8H OU 01/23/25 19:30 02/22/25 19:29 02/03/25 11:40 1 DROP Bumetanide (Bumex 1mg Vial) 1 mg ONCE PRN IVP AFTER TRANSFUSION 01/24/25 08:00 01/24/25 09:23 DC Bumetanide (Bumex 1mg Vial) 2 mg ONCE PRN IVP AFTER TRANSFUSION 01/24/25 14:00 01/24/25 14:00 DC 01/24/25 13:28 2 MG Cefepime HCl (MAXipime 2 gm vial) 2 gm Q24H IVPB 01/23/25 12:00 01/26/25 12:05 DC 01/26/25 11:38 2 GM Ceftriaxone Sodium (ROCEphine 1G INJ) 1 gm Q24H IVPB 01/22/25 12:00 01/22/25 16:25 DC 01/22/25 14:18 1 GM Chlorhexidine Gluconate (Peridex) 15 ml TID MM 01/23/25 21:00 02/06/25 20:59 02/03/25 14:51 15 ML Dexmedetomidine/ Sodium Chloride (PRECEdex 400MCG/ 100ML-NS) 400 mcg PROTOCOL IV 01/27/25 15:30 02/26/25 15:29 Dextrose (D50w) 50 ml AD PRN IV HYPOGLYCEMIA PROTOCOL 01/22/25 15:30 02/21/25 15:29 02/03/25 05:24 50 ML Epoetin Carlton-epbx (Retacrit) 10,000 unit QWEEK SQ 01/31/25 15:00 03/02/25 14:59 01/31/25 15:16 10,000 UNIT Fentanyl Citrate 100 ml @ 2.5 mls/hr PROTOCOL IV 01/22/25 12:00 01/22/25 11:55 DC Fentanyl Citrate 100 ml @ 2.5 mls/hr PROTOCOL IV 01/22/25 12:00 01/27/25 15:35 DC 01/27/25 05:34 2.5 MLS/HR Glucagon (Glucagon 1mg Kit) 1 mg AD PRN IM HYPOGLYCEMIA PROTOCOL 01/22/25 15:30 02/21/25 15:29 Heparin Sodium (Porcine) (HEParin 5,000 UNIT VIAL) *calculation based on ACTUAL B... AD PRN IV HEPARIN PROTOCOL 01/27/25 16:30 02/03/25 09:31 DC Heparin Sodium/ Dextrose 250 ml @ 0 mls/hr Q6H IV 01/27/25 16:30 02/03/25 09:28 DC 01/31/25 17:28 0 MLS/HR Insulin Glargine (LANtus 100 UNITS/ML 10 ML VIAL) 10 units BID@0730,2100 SQ 02/01/25 21:00 02/02/25 09:20 DC 02/02/25 08:08 10 UNITS Insulin Glargine (LANtus 100 UNITS/ML 10 ML VIAL) 20 units BID@0730,2100 SQ 02/02/25 21:00 02/03/25 09:50 DC Insulin Human Regular (humuLIN R 100 UNIT/ML 3ML) INSULIN SLIDING SCAL... ACHS SQ 01/22/25 21:00 01/25/25 20:51 DC 01/25/25 16:29 3 UNIT Insulin Human Regular (humuLIN R 100 UNIT/ML 3ML) INSULIN SLIDING SCAL... Q6H6 SQ 01/26/25 10:00 02/01/25 12:57 DC 02/01/25 11:59 3 UNIT Insulin Human Regular (humuLIN R 100 UNIT/ML 3ML) INSULIN SLIDING SCAL... Q6H6 SQ 02/01/25 18:00 03/03/25 17:59 02/02/25 11:45 6 UNIT Leptospermum [place] ([place]) 1 APPLICATION DAILY TP 01/26/25 09:00 02/25/25 08:59 02/03/25 09:39 1 APPL Levetiracetam (kepPRA 500 MG TABLET) 500 mg BID PO 01/22/25 21:00 01/22/25 22:13 DC Levetiracetam 500 mg/Sodium Chloride 100 ml @ 400 mls/hr Q12H9 IV 01/22/25 22:00 02/21/25 21:59 02/03/25 09:52 400 MLS/HR Levothyroxine Sodium (SYNTHroid VIAL 100MCG) 100 mcg SYN IV 01/23/25 06:30 02/22/25 06:29 02/03/25 06:37 100 MCG Linezolid 300 ml @ 150 mls/hr Q12H IV 01/24/25 08:00 02/01/25 12:55 DC 02/01/25 08:10 150 MLS/HR Linezolid 300 ml @ 150 mls/hr Q12H IV 02/02/25 09:30 02/12/25 09:29 02/03/25 09:30 150 MLS/HR Magnesium Sulfate 50 ml @ 0 mls/hr PROTOCOL PRN IV Hypomagnesemia 01/22/25 15:30 02/21/25 15:29 01/29/25 08:35 25 MLS/HR Meropenem (Merrem 1gm) 1 gm Q12H IVPB 02/02/25 09:30 02/02/25 11:06 DC Meropenem (Merrem 1gm) 1 gm Q12H IVPB 02/02/25 13:30 02/12/25 13:29 02/03/25 14:50 1 GM Metronidazole/ Sodium Chloride 100 ml @ 100 mls/hr Q8H6 IVPB 01/22/25 22:00 01/26/25 12:05 DC 01/26/25 06:13 100 MLS/HR Midazolam HCl 50 ml @ 0 mls/hr PROTOCOL IV 01/22/25 12:00 01/27/25 15:35 DC 01/27/25 09:10 5 MLS/HR Norepinephrine 250 ml @ 0 mls/hr PROTOCOL IV 01/22/25 10:00 01/23/25 09:52 DC 01/22/25 14:24 60 MLS/HR Norepinephrine Bitartrate (Norepineph 16 Mg/250ml NS Premix) per protocol PROTOCOL IV 01/23/25 10:00 02/22/25 09:59 02/01/25 20:44 16 MG Nystatin (NystOP 15 GM POWDER) Left gluteal fold BID TP 02/03/25 21:00 03/05/25 20:59 Octreotide Acetate 1250 mcg/ Sodium Chloride 250 ml @ 0 mls/hr PROTOCOL IV 01/22/25 12:30 01/22/25 12:17 DC Octreotide Acetate 1250 mcg/ Sodium Chloride 250 ml @ 0 mls/hr PROTOCOL IV 01/22/25 12:30 01/24/25 09:23 DC 01/22/25 12:41 5 MLS/HR Pantoprazole Sodium (PROTonix 40MG INJ) 40 mg BID IVP 01/24/25 21:00 01/24/25 15:02 DC Pantoprazole Sodium (PROTonix 40MG INJ) 40 mg BID IVP 01/28/25 21:00 02/27/25 20:59 02/03/25 09:31 40 MG Pantoprazole Sodium 80 mg/ Sodium Chloride 100 ml @ 10 mls/hr Q10H IV 01/22/25 09:00 01/24/25 09:23 DC 01/24/25 09:17 10 MLS/HR Pantoprazole Sodium 80 mg/ Sodium Chloride 100 ml @ 10 mls/hr Q10H IV 01/24/25 15:00 01/28/25 13:39 DC 01/28/25 00:06 10 MLS/HR Pharmacy Profile Note (Pharmacy Communication) 1 each ONCE MISC 01/22/25 12:00 01/22/25 11:53 DC Pharmacy Profile Note (Pharmacy Communication) 1 each ONCE MISC 01/22/25 12:00 01/22/25 11:53 DC Pharmacy Profile Note (Pharmacy Communication) 1 each ONCE MISC 01/23/25 13:00 01/23/25 13:09 DC Pharmacy Profile Note (Pharmacy Communication) 1 each ONCE MISC 01/24/25 08:00 01/24/25 07:51 DC Pharmacy Profile Note (Pharmacy Communication) 1 each ONCE MISC 02/02/25 09:30 02/02/25 09:09 DC Phenylephrine HCl 100 mg/Sodium Chloride 250 ml @ 0 mls/hr AD PRN IV TITRATE 01/22/25 17:00 02/02/25 17:22 DC 01/23/25 09:30 0 MLS/HR Phenylephrine HCl 100 mg/Sodium Chloride 250 ml @ 0 mls/hr PROTOCOL IV 02/02/25 17:30 03/04/25 17:29 Piperacillin Sod/ Tazobactam Sod (Zosyn 3.375gm+NS 50ml) 3.375 gm Q8H IV 01/26/25 12:30 02/01/25 12:55 DC 02/01/25 12:04 3.375 GM Potassium Phosphate 250 ml @ 42 mls/hr PROTOCOL PRN IV PROTOCOL 02/01/25 15:30 03/03/25 15:29 02/01/25 17:21 42 MLS/HR Potassium Chloride 100 ml @ 50 mls/hr AD PRN IV POTASSIUM PROTOCOL 01/22/25 15:30 01/24/25 07:50 DC Potassium Chloride 100 ml @ 100 mls/hr AD PRN IV POTASSIUM PROTOCOL 01/22/25 15:30 02/21/25 15:29 02/01/25 06:18 100 MLS/HR Potassium Chloride (K-Dur/Klor-Con 20meq) 20 meq AD PRN PO POTASSIUM PROTOCOL 01/22/25 15:30 02/21/25 15:29 01/26/25 06:19 20 MEQ Potassium Chloride (KCl 10% Elixir 20meq/15ml) 20 meq AD PRN PO POTASSIUM PROTOCOL 01/22/25 15:30 02/21/25 15:29 02/02/25 03:29 20 MEQ Propofol (DIPRivan 1000MG/ 100ML) 1,000 mg PROTOCOL PRN IV SEDATION 01/22/25 12:00 01/22/25 11:55 DC Sodium Bicarbonate 150 meq/Dextrose 1,150 ml @ 100 mls/hr [id number] IVP 02/02/25 06:00 02/02/25 09:04 DC 02/02/25 05:45 100 MLS/HR Sodium Bicarbonate (Sodium Bicarbonate) 650 mg BID PO 01/24/25 21:00 02/23/25 20:59 02/03/25 09:30 650 MG Sodium Bicarbonate (Sodium Bicarbonate) 650 mg BID PO 02/01/25 21:00 02/01/25 13:00 DC Sodium Bicarbonate (Sodium Bicarb 50meq 50ml Vial) 50 meq Q6H IV 02/02/25 15:00 02/04/25 14:59 02/03/25 15:13 50 MEQ Sodium Chloride 1,000 ml @ 150 mls/hr Q6H40M IV 01/22/25 12:00 01/23/25 10:56 DC 01/23/25 02:45 150 MLS/HR Sucralfate (Carafate) 1 gm BID PO 01/23/25 21:00 01/23/25 11:41 DC Sucralfate (Carafate) 1 gm BID PO 02/02/25 21:00 02/23/25 16:59 02/03/25 09:30 1 GM Sucralfate (Carafate) 1 gm QID PO 01/24/25 17:00 02/02/25 18:53 DC 02/02/25 17:25 1 GM Sucralfate (Carafate) 1 gm TID PO 01/23/25 14:00 01/24/25 15:02 DC 01/24/25 13:28 1 GM Thiamine HCl 100 mg/Sodium Chloride 50 ml @ 100 mls/hr Q24H IV 01/23/25 14:00 01/25/25 14:29 DC 01/25/25 13:53 100 MLS/HR Vancomycin HCl (Vancomycin 750mg) 750 mg Q24H IVPB 01/23/25 17:00 01/23/25 10:56 DC Vancomycin HCl (Vancomycin Protocol) 1 each AD IV 01/22/25 15:00 01/23/25 10:56 DC Vasopressin 40 units/Sodium Chloride 40 ml @ 0 mls/hr PROTOCOL IV 01/25/25 09:30 02/24/25 09:29 Wound Care/ Dressing Products (Venelex Ointment) BID TP 01/25/25 21:00 01/25/25 15:58 DC Wound Care/ Dressing Products (Venelex Ointment) 1 APPL BID TP 02/03/25 21:00 03/05/25 20:59 DIAGNOSTICS / RADIOLOGY: PATIENT: JUSTIN KLINE MR#: [id number] : 1955 SEX: F AGE: 70 LOCATION: 2CH ORDER 3 STATUS: ADM IN REPORT#: [id number] SERVICE 1 REASON: pp ORDERING PHYSICIAN: RERE BLAIR PROCEDURE: CXR1VW - CHEST 1VW EXAM: CR Chest, 1 View. CLINICAL HISTORY: pp COMPARISON: 01/30 20:49 EDT CR - CHEST 1VW FINDINGS: Essentially stable since prior exam. ETT tip 4 cm above [place]. Left PICC tip in SVC. stable left perihilar and left basilar airspace disease and small left pleural effusion. Right lung remains relatively clear. Negative for pneumothorax. Heart size, pulmonary vascularity and mediastinum within normal limits. PLEURAL SPACES: No evidence of pleural effusion or pneumothorax. MEDIASTINUM: Cardiac size and mediastinal contours within normal limits. BONES: No aggressive appearing osseous lesion seen. IMPRESSION: Stable chest. Support lines and tubes appear appropriate position and stable. Stable left perihilar and left basilar airspace disease and small left pleural effusion. Right lung remains clear. /[facility] DICTATED BY: RADHA BECERRA Jr., MD DATE: 01/31/251312 ELECTRONICALLY SIGNED BY: RADHA BECERRA Jr., MD DATE: 01/31/251312 ATIENT: JUSTIN KLINE MR#: [id number] : 1955 SEX: F AGE: 70 LOCATION: 2CH ORDER STATUS: ADM IN REPORT#: [id number] SERVICE 07 REASON: HGB drop, assess for possible GI bleed ORDERING PHYSICIAN: KIRSTEN KRUSE MD PROCEDURE: GIBLEED - NM GI BLOOD LOSS IMAG Examination NM radiolabeled red blood cell study History Gastrointestinal bleeding Technique After IV administration of Tc-99m labeled red autologous blood cells, anterior projection images of the abdomen and pelvis were obtained dynamically for one hour. Findings Following administration of radiolabeled red blood cells, there is normal activity seen in cardiovascular and genitourinary structures, the liver and spleen. There is no evidence for extravasation of radiolabeled red blood cells during the examination. IMPRESSION: No evidence of gastrointestinal hemorrhage during the course of examination acquisition. /[place] DICTATED BY: RADHA BECERRA Jr., MD DATE: 01/25/251457 ELECTRONICALLY SIGNED BY: RADHA BECERRA Jr., MD DATE: 01/25/251457 PATIENT: JUSTIN KLINE MR#: [id number] : 1955 SEX: F AGE: 70 LOCATION: 2CH ORDER 1 STATUS: ADM IN REPORT#: [id number] SERVICE 1 REASON: UNRESPONSIVE ORDERING PHYSICIAN: RERE BLAIR PROCEDURE: HEAD WO - CT HEAD/BRAIN W/O CONTRAST EXAM: CT Head Without IV contrast. CLINICAL HISTORY: UNRESPONSIVE TECHNIQUE: Axial computed tomography images of the head/brain without intravenous contrast. COMPARISON: None provided. FINDINGS: BRAIN: There is diffuse cerebral atrophy, evidenced by prominence of the cortical sulci and ventricular system, compatible with age-related changes. There is evidence of chronic small vessel ischemic change characterized by bilateral periventricular and deep white matter hypodensities. Ill-defined hypodensity with loss of rodriguez-white matter interface in the right frontal and high parietal lobes concerning for a possible infarct. No evidence of acute hemorrhage. No mass lesion. No midline shift or extra-axial collections. VENTRICLES: No hydrocephalus. ORBITS: The orbits are unremarkable. SINUSES AND MASTOIDS: Mucosal thickening in bilateral sphenoidal sinuses. The rest of the Paranasal sinuses and mastoid air cells are clear. BONES: No fracture. SOFT TISSUES: Unremarkable. IMPRESSION: 1. Ill-defined hypodensity with loss of rodriguez-white matter interface in the right frontal and high parietal lobes concerning for possible infarct. Consider MRI 2. No acute intracranial hemorrhage. /[place] DICTATED BY: SELIN BURNS MD DATE: 01/31/251730 ELECTRONICALLY SIGNED BY: SELIN BURNS MD DATE: 01/31/251730 PATIENT: JUSTIN KLINE MR#: [id number] : 1955 SEX: F AGE: 70 LOCATION: 2CH ORDER 34 STATUS: ADM IN REPORT#: [id number] SERVICE 1332 REASON: UNRESPONSIVE ORDERING PHYSICIAN: RERE BLAIR PAC PROCEDURE: BRAIN WO - MR BRAIN WO CON EXAM: MR Brain with and without Intravenous Contrast. CLINICAL HISTORY: UNRESPONSIVE WHILE TRYING TO EXTUBATE TECHNIQUE: Multisequence, multiplanar magnetic resonance images acquired of the brain with and without intravenous contrast. CONTRAST: COMPARISON: None provided. FINDINGS: BRAIN: Ill-defined areas of hyperintensities in the subcortical white matter of the right frontal and parietal lobes without diffusion restriction. 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 Age-related cerebral and cerebellar atrophy. Diffuse T2-FLAIR hyperintensities along the periventricular white matter of bilateral fronto-parietal lobes are suggestive of chronic small vessel ischemia. No restricted diffusion to indicate acute infarction. No intracranial haemorrhage. No midline shift or extra-axial fluid collection. No cerebellar tonsillar ectopia. The central arterial and venous flow voids are patent. VENTRICLES: No hydrocephalus. ORBITS: The orbits are normal. Pseudophakic lens in the right orbit. SINUSES AND MASTOIDS: Fluid signal intensity in the bilateral sphenoid sinus. Fluid signal intensity in bilateral mastoid air cells is suggestive of mastoiditis. The rest of the sinuses are clear. BONES: No acute fracture or aggressively appearing osseous lesion. IMPRESSION: 1. 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 2. 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 3. Bilateral sphenoid sinusitis and mastoiditis. /[place] DICTATED BY: SELIN BURNS MD DATE: 02/01/251609 ELECTRONICALLY SIGNED BY: SELIN BURNS MD DATE: 02/01/251609 ASSESSMENT: Hematemesis POA Acute metabolic encephalopathy Cerebrovascular accident-chronic infarct as per MRI brain Hemorrhagic shock Acute complicated cystitis - ESBL Oliguria - urine output 0.03 mL/kg per hour (01/31/25) Acute hypoxic respiratory failure status post intubation for airway protection Peg tube placement Hyperammonemia Lactic acidosis Peptic ulcer disease DVT of bilateral upper limbs Starvation ketoacidosis Hypokalemia Hypophosphatemia Unstageable wound on sacrum Fecal impaction Obesity BMI 36.6 Knee injury versus underlying CKD Diabetes mellitus type 2 with associated hyperglycemia Severe hypoalbuminemia Hypertension Debility Small pericardial Effusion Left-sided pleural effusion PLAN: Hematemesis, peptic ulcer disease, POA - patient was admitted to ICU - in reference to hematemesis. H&H was trended q.4 hours. Type and screen was done. Plan is to keep hemoglobin above 7. On 01/25/2025 her hemoglobin was 5.9, we gave 1 PRBC. Repeat Hb is 7.4. - The patient was started on Protonix drip and octreotide drip. Critical care stopped her Protonix drip as she was fluid overloaded and they started protonix 40 mg b.i.d. - EGD done by Gastroenterology and have reported no active bleeding and clots in esophagus. - GI wanted to do another EGD, and colonoscopy showed no evidence of bleeding. - Bleeding scan showed no evidence of gastrointestinal hemorrhage. - gastroenterology recommended follow with them in 1 week after discharge. - Today her hemoglobin dropped to 6.8. Patient with receive PRBC. - We will continue to follow recommendations from critical Care and Gastroenterology. Acute hypoxic respiratory failure status post intubation for airway protection - critical care is on board and we will follow critical care recommendations regarding ventilator and sedation protocol -The nurse tried to extubate her but she could not extubate as she is not waking up and she can't not protect her airway. - currently on CPAP while intubated, undergoing SBT. Patient is off sedation. Cerebrovascular accident - chronic infarct - CT scan of the brain on 01/31/2025 showed 1. Ill-defined hypodensity with loss of rodriguez-white matter interface in the right frontal and high parietal lobes concerning for possible infarct. No acute intracranial hemorrhage. - MRI brain showed Chronic infarct in the right frontal and parietal lobes. 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 Bilateral sphenoid sinusitis and mastoiditis. - Follow up with the Neurology recommendations. Hemorrhagic shock - patient was placed on ON LEVOPHED. Later on, She was taken off vasopressors support. - On 02/02, Levophed was restarted at 0.04 due to hypotension. - we will follow critical Care recommendations in managing hemorrhagic shock Oliguria - Patient's urine output on 01/31/2025 was 0.03 mL/kg per hour with Total urine output, 75 mL. - On 02/03/2025, total urine output is 200 mL - Patient was given Lasix today as per Nephrology - Patient's creatinine and BUN from today are 3.2 and 41 respectively. - Monitor input and output as well as electrolytes. - Avoid nephrotoxic drugs. - Evaluate patient for volume overload and fluid repletion. - Patient was given 500 mL lactated Ringer on 02/03. - Follow up with the Nephrology recommendations Acute metabolic encephalopathy, Hyperammonemia, lactic acidosis - Her ammonia levels from 01/31/2025 were 48. Lactulose p.o. was added on 02/01. - On 02/02, ammonia levels were again elevated 106. Lactulose MI has been added. - On 02/03, ammonia is 58. - Follow up with ammonia levels in the morning. - On 02/02, lactic acid is elevated by 5. Repeat values today showed 9. Patient's anion gap is also elevated. ABG on 02/02 showed pH 7.44, pCO2 19, HC03 12.9 - Patient had bicarb deficit for which sodium bicarbonate was added to the medication regimen. Patient continues to have bicarb deficit. - Follow up with the BMP and trend lactic acid. - Follow up with the blood culture, urine culture, stool culture, respiratory culture to identify the suspected source of infection. Acute complicated cystitis - ESBL - Patient's urine culture came back positive for ESBL E coli - Patient was started on Zosyn q.8h and linezolid q.12h. - On 02/02, patient has been switched to Merrem and linezolid. DVT of bilateral upper limbs -US doppler of both upper limbs, results showed evidence of DVT. -Consulted gastroenterology for anticoagulation recommendations. They recommended to give high dose Protonix drip for 48 hours and carafate 1gm PO QID and after 48 hours start heparin drip. -Patient is not a candidate for SVC filter. -for supratherapeutic aPTT, heparin drip was held temporarily Starvation ketoacidosis Today her blood work show that sodium is 147, potassium is 3.8, chloride is 110, bicarbonate is 19. Her urinalysis from 01/24/2025 showed ketones in the urine. Unstageable wound on sacrum - we will request wound care -Wound care recommended to cleanse with normal saline, pat dry, apply medihoney, cover with allevyn, change daily and prnKeep wounds clean and dry , Offloading/reposition q 2 hours Hypokalemia Today her blood work showed that potassium is 3.8. She is being maintained on potassium replacement protocol Will repeat her labs tomorrow. Diabetes mellitus type 2 with associated hyperglycemia, Severe hypoalbuminemia, Hypertension, Debility, Small pericardial Effusion, Left-sided pleural effusion - echo showed no pericardial effusion, LVEF of 50-55% - continue insulin sliding scale. It was adjusted on 02/01 as per glucose levels. Lantus was also started as per critical care team. - On 02/03, patient's glucose dropped to 36 for which she was given D5. Lantus has been discontinued. - continue thiamine supplementation - monitor vitals Q8 - monitor a.m. labs - nephrology was consulted and they recommended to discontinue vancomycin, obtain urine analysis and complete renal ultrasound. Patient was started on meropenem and linezolid on 02/02 -Repeated urinalysis, urine electrolytes, urine protein on 01/24/2025. Urinalysis showed turbid urine, protein >300, ketones 5, moderate occult blood, moderate leukocyte esterase, RBC 6 to 10, WBC is TNTC, protein 410.9, sodium is 43, potassium is 36, chloride is 40. GI prophylaxis: Pantoprazole ATTESTATION BY PHYSICIAN I have seen and examined the patient. I reviewed the documentation, medical decision making, and treatment plan as noted by the resident physician above. I agree with the findings and plan of care. VON ZAMORA MD, MUHAMMAD H MD Feb 03, 2025 16:23
[2025-02-03 19:09] LABS: CREATININE 3.5 mg/dL (0.5-1.0); GLOMERULAR FILTR. RATE CALC 14.0 mL/min (>90); GLUCOSE,RANDOM 138.0 mg/dL (70-105); SODIUM SERUM 149.0 mmol/L (136-145); UREA NITROGEN, BLOOD 41.0 mg/dL (7-18)
[2025-02-03 19:37] LABS: IMMATURE GRANULOCYTE ABSOLUTE 0.22 K/uL (0-1); NUCLEATED RED BLOOD CELLS 1.8 % (0.0-0.19); PLATELET COUNT (AUTO) 96 K/uL (130-400); RED BLOOD CELL COUNT(AUTO) 2.52 MIL/uL (4.00-5.50); RED CELL DISTRIBUTION WIDTH 19.9 % (11.0-15.5); WHITE BLOOD COUNT (AUTO) 17.6 K/uL (4.8-10.8)
[2025-02-03] MEDS: BALSAM PERU/CASTOR OIL 60 GM TUBE TP SCH (20:42)
[2025-02-04] VITALS (104 sets, daily range): BP systolic 87–157; BP diastolic 39–95; PULSE 70–143; RESP 5–32; TEMP 97.6–99.9; O2SAT 98–100
[2025-02-04 03:01] LABS: ABG BASE EXCESS -8.5 mmol/L (-2.0-3.0); ABG HCO3 14.3 mmol/L (21.0-28.0); ABG OXYGEN SATURATION 97.8 % (94.0-98.0); ABG PCO2 21 mmHg (32-45); ABG PH 7.454 (7.350-7.450); CARBON MONOXIDE 0.5 % (0.5-1.5); PO2, ARTERIAL BG 118.8 mmHg (83.0-108.0); TEMPERATURE, CELSIUS BG 37.0 CELSIUS (35.5-37.0); VENT MODE, BG AC VC (ROOM AIR)
[2025-02-04] MEDS: ALBUMIN HUMAN 25% 100 ML IV ONE (03:46)
[2025-02-04 05:01] LABS: IMMATURE GRANULOCYTE ABSOLUTE 0.23 K/uL (0-1); NUCLEATED RED BLOOD CELLS 2.0 % (0.0-0.19); PLATELET COUNT (AUTO) 74 K/uL (130-400); RED BLOOD CELL COUNT(AUTO) 2.21 MIL/uL (4.00-5.50); RED CELL DISTRIBUTION WIDTH 18.9 % (11.0-15.5); WHITE BLOOD COUNT (AUTO) 14.0 K/uL (4.8-10.8)
[2025-02-04 05:11] LABS: INR 1.31 (0.85-1.15)
[2025-02-04 05:38] LABS: ASPARTATE AMINOTRANSFERASE 42.0 U/L (10-37); CREATININE 3.4 mg/dL (0.5-1.0); GLOMERULAR FILTR. RATE CALC 14.0 mL/min (>90); GLUCOSE,RANDOM 151.0 mg/dL (70-105); PHOSPHORUS 3.4 mg/dL (2.5-4.9); SODIUM SERUM 150.0 mmol/L (136-145); TOTAL PROTEIN, SERUM 4.8 g/dL (6.0-8.3); UREA NITROGEN, BLOOD 43.0 mg/dL (7-18)
--- NOTE | 2025-02-04 08:16 | PN ---
[facility] PROGRESS NOTE Date Patient Seen: Feb 04, 2025 Time of Visit: 08:15 Supervising Physician: ISIDRO LOPEZ MD Primary Care Physician: NANDO HUYNH Outpatient Specialists: [ ] Inpatient Consults: DR RAMOS, DR HEAD, DR SIMENTAL Assessment: Acute TOXIC metabolic encephalopathy Refractory shocK septic and Hemorrhagic Small mobile vegetation seen attached on the anterior mitral valve annulus measuring 1.2cm x 1.0cm on 2 D echo 02/02/25 Rule out endocarditis-pending Blood cultures Mild Pulm HTN RVSP 37.5mmHg Acute complicated cystitis - ESBL to urine Acute hypoxemic respiratory failure (intubated) Intractable metabolic acidosis Deep vein thrombosis in the right subclavian and axillary veins and Right basilic vein thrombosis. 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 Unstageable wound on sacrum Chronic infarct in the right frontal and parietal lobes. on MRI Brain 02/02/25 Right BKA INTERVAL HISTORY: Pt is a 70-year-old ill female who remains intubated and mechanically ventilated on assist control mode (VT 400 mL, RR 18, PEEP 5, FiO2 30%) with SpO2 98%. Off sedation for several days but not awakening; GCS 6. Combination of acute metabolic and toxic-metabolic encephalopathy secondary to hyperammonemia (ammonia 204 mol/L). Continues on phenylephrine (neosynephrine) infusion at 0.5 g/kg/min for basal pressure support. Urine output low at 350 mL/24 h. WBC 12.3 (trending down); Hgb 6.7 / 8.9 pending 1 unit PRBC; platelets 74 K . Zyvox discontinued due to thrombocytopenia. Na 150, K 3.4, CO2 15 receiving IV and PO bicarbonate. Creatinine 3.4 (GFR 14). Alk phos 1012, Tbili 1.5, procalcitonin 1.95 (trending down). Hemolytic anemia workup ordered; continue supportive measures. Nephrology following no dialysis planned. Code status: DNR. REVIEW OF SYSTEMS: Unable to obtain due to patient's intubated PHYSICAL EXAM: GENERAL: Critically ill intubated and sedated. HEENT: Sclera non icteric, dry mucosa NECK: Supple, no JVD, trachea midline LUNGS: Clear breath sounds bilaterally. No wheezes HEART: Regular rate and rhythm. Normal S1 and S2, without murmurs ABD: Abdomen soft, nontender. Bowel sounds present EXT: No clubbing cyanosis or edema, history of right BKA NEURO: Intubated and sedated Vital Signs (last 8hr) Date Time Temp Pulse Resp B/P (MAP) Pulse Ox O2 Delivery O2 Flow Rate FiO2 02/04/25 06:17 78 30 02/04/25 06:00 99 24 125/61 (82) 98 02/04/25 05:45 99 24 126/57 (80) 100 02/04/25 05:30 101 24 138/67 (90) 100 02/04/25 05:15 100 24 155/95 (115) 98 02/04/25 05:00 99 24 138/63 (88) 99 02/04/25 04:45 98 25 134/63 (86) 100 02/04/25 04:30 98 25 134/63 (86) 100 02/04/25 04:15 100 26 132/62 (85) 100 02/04/25 04:00 99.3 02/04/25 04:00 98 142/76 (98) 100 02/04/25 04:00 100 Ventilator+ 30 30 02/04/25 04:00 30 02/04/25 03:45 97 126/73 (90) 100 02/04/25 03:30 96 24 118/64 (82) 100 02/04/25 03:20 70 30 02/04/25 03:15 96 24 118/64 (82) 100 02/04/25 03:00 97 23 110/62 (78) 100 02/04/25 02:45 100 26 104/60 (75) 100 02/04/25 02:30 97 25 117/60 (79) 100 02/04/25 02:15 97 24 108/59 (75) 100 02/04/25 02:00 97 24 104/58 (73) 100 02/04/25 01:45 98 25 111/59 (76) 100 02/04/25 01:30 99 25 116/62 (80) 100 02/04/25 01:15 99 25 116/62 (80) 100 02/04/25 01:00 100 27 115/57 (76) 100 02/04/25 00:56 96 30 02/04/25 00:45 99 25 116/61 (79) 100 02/04/25 00:30 101 26 110/62 (78) 100 LABS: Hematology Labs: Test 02/04/25 04:49 Range/Units White Blood Count 14.0 H 4.8-10.8 K/uL Red Blood Count 2.21 L 4.00-5.50 MIL/uL Hemoglobin 6.7 *L 12.0-16.0 g/dL Hematocrit 19.8 *L 36-48 % Mean Corpuscular Volume 89.6 79-99 fL Mean Corpuscular Hemoglobin 30.3 27.0-33.0 pg Mean Corpuscular Hemoglobin Concent 33.8 32.0-36.0 g/dL Red Cell Distribution Width 18.9 H 11.0-15.5 % Platelet Count 74 L 130-400 K/uL Mean Platelet Volume 12.7 H 7.5-10.5 fL Immature Granulocyte % (Auto) 1.6 H 0-1 % Neutrophils (%) (Auto) 82.5 H 40.0-77.0 % Lymphocytes (%) (Auto) 11.2 L 21.0-51.0 % Monocytes (%) (Auto) 3.3 3.0-13.0 % Eosinophils (%) (Auto) 1.1 0.0-8.0 % Basophils (%) (Auto) 0.3 0.0-5.0 % Neutrophils # (Auto) 11.5 H 1.8-7.7 K/uL Lymphocytes # (Auto) 1.6 1.0-4.8 K/uL Monocytes # (Auto) 0.5 0.1-1.0 K/uL Eosinophils # (Auto) 0.16 0.00-0.70 K/uL Basophils # (Auto) 0.04 0.00-0.20 K/uL Absolute Immature Granulocyte (auto 0.23 0-1 K/uL Nucleated Red Blood Cells 2.0 H 0.0-0.19 % Chemistry Labs: Test 02/04/25 04:49 02/03/25 17:53 02/03/25 03:32 02/02/25 23:15 Range/Units Sodium Level 150 H 136-145 mmol/L Potassium Level 3.4 L 3.5-5.1 mmol/L Chloride Level 108 101-111 mmol/L Carbon Dioxide Level 15 L 21-32 mmol/L Blood Urea Nitrogen 43 H 7-18 mg/dL Creatinine 3.4 H 0.5-1.0 mg/dL Glomerular Filtration Rate Calc 14 >90 mL/min Random Glucose 151 H 70-105 mg/dL Lactic Acid Level 9.7 H 0.8-2.5 mmol/L Total Calcium 8.8 8.5-10.1 mg/dL Phosphorus Level 3.4 2.5-4.9 mg/dL Magnesium Level 2.00 1.80-2.40 mg/dL Total Bilirubin 1.5 H 0.2-1.0 mg/dL Aspartate Amino Transf (AST/SGOT) 42 H 10-37 U/L Alanine Aminotransferase (ALT/SGPT) 15 12-78 U/L Alkaline Phosphatase 1012 *H 50-136 U/L Ammonia 204 *H 11-32 umol/L Total Protein 4.8 L 6.0-8.3 g/dL Albumin 1.6 L 3.5-5.0 g/dL Whole Blood Glucose 117 #H 70-110 MG/DL C-Reactive Protein, Quantitative 198.20 H 0.5-3.0 mg/L Bedside Glucose Comment Protocol Initiated Test 02/02/25 09:50 Range/Units Whole Blood Ketones Quantitative < 0.1 0.0-0.6 mmol/L Coagulation Labs: Test 02/04/25 04:49 Range/Units Prothrombin Time 13.5 H 9.6-11.6 SEC Prothromb Time International Ratio 1.31 H 0.85-1.15 Activated Partial Thromboplast Time 53.7 H 26.3-35.5 SEC DIAGNOSTICS / RADIOLOGY RESULTS: [ ] [place] [address] [place] [id number] IMAGING REPORT Signed PATIENT: JUSTIN KLINE MR#: [id number] : 1955 SEX: F AGE: 70 LOCATION: 2CH ORDER 2300 STATUS: ADM IN REPORT#: [id number] SERVICE 0600 REASON: intubated ORDERING PHYSICIAN: KARL RODRIGUEZ PROCEDURE: CXR1VW - CHEST 1VW CHEST 1VW REASON: intubated COMPARISON: Prior chest radiograph from 02/03/2025 is available. FINDINGS: Single view of the chest was obtained. Lungs demonstrate left-sided groundglass appearance suggesting of left-sided pleural effusion. The right lung appears to be clear.. Heart size is normal. The endotracheal tube and left-sided PICC catheter to be in satisfactory position.. There is no pulmonary vascular congestion. Mediastinum and bony thorax appear unremarkable. IMPRESSION: 1. The left lung has groundglass opacity suggesting of left-sided pleural effusion would recommend ultrasound of the chest for further evaluation 2. Support lines in satisfactory position 3. No evidence of airspace consolidation or pulmonary venous congestion. DICTATED BY: RENA MADDOX MD DATE: 02/04/251124 ELECTRONICALLY SIGNED BY: RENA MADDOX MD DATE: 02/04/251128 ns PLAN DC zyvox hemolytic and DIC workup continue IV abx with meropenem Lasix 10mg/hr iv monitor for bleedin manage vent per abg scheduled lactulose monitor liver enzymes monitor ammonia levels follow nephrology recommendations NEURO: Minimize central acting medications as possible. Maintain fall precautions, adequate lighting during the day PULMONARY: Supplemental 02 as needed. Maintain aspiration precautions at all times CARDIOVASCULAR: Follow hemodynamics. Vital signs per facility protocol GI & NUTRITION: Continue with nutritional support. Continue stool softeners and laxatives as needed. KIDNEYS & ELECTROLYTES: Strict monitoring of intake, output and overall fluid balance. Avoid nephrotoxic medications to the extent possible. Medications to be dosed according to renal function. Monitor electrolytes and replace as needed ENDOCRINE: Maintain blood glucose between 100-180 at all times. Hypoglycemia protocol in place INFECTIOUS DISEASE: Trend temperature, WBC and procalcitonin level Follow cultures, deescalate antibiotics as soon as possible. Panculture if new onset fever ONCOLOGY/HEMATOLOGY/COAGULATION: Monitor for s/s of bleeding Monitor hemoglobin, coagulation studies as needed SKIN: Pressure ulcer prevention per facility protocol Specialty mattress ORTHO/REHAB: Continue PT/OT Prophylaxis: Continue GI and DVT prophylaxis Code Status: Full Resuscitation Disposition: TBD Other: Total patient care time exceeds 35 minutes excluding all procedures. ATTESTATION BY PHYSICIAN I attest that I reviewed and discussed the case with the Physician Manager State as well as agree with the Physician Manager State's findings, plans of care, and documentation above. Isidro Bailey MD, [facility] Feb 04, 2025 08:16
[2025-02-04] MEDS: LACTULOSE 20 GM/30 ML UDCUP PR ONE (10:21)
--- NOTE | 2025-02-04 11:29 | HMCIMG ---
CHEST 1VW REASON: intubated COMPARISON: Prior chest radiograph from 02/03/2025 is available. FINDINGS: Single view of the chest was obtained. Lungs demonstrate left-sided groundglass appearance suggesting of left-sided pleural effusion. The right lung appears to be clear.. Heart size is normal. The endotracheal tube and left-sided PICC catheter to be in satisfactory position.. There is no pulmonary vascular congestion. Mediastinum and bony thorax appear unremarkable. IMPRESSION: 1. The left lung has groundglass opacity suggesting of left-sided pleural effusion would recommend ultrasound of the chest for further evaluation 2. Support lines in satisfactory position 3. No evidence of airspace consolidation or pulmonary venous congestion.
[2025-02-04] MEDS ORDERED: LACTULOSE 20 GM/30 ML UDCUP PO PRN (12:30)
--- NOTE | 2025-02-04 12:49 | PN ---
NEPHROLOGY PROGRESS NOTE Date/Time Patient Seen: Feb 04, 2025 SUBJECTIVE: This is a 70-year-old female with past medical history of diabetes mellitus type 2, hypertension, anemia, history of CVA, history of right below-knee amputation, chronic kidney disease with prior history of dialysis She presented to the hospital secondary to hematemesis. Patient is currently intubated and sedated. Most information was obtained from chart review. bedside nurse, and family due to patient's condition She has a history of peptic ulcer disease. She continues to require vasopressors to maintain blood pressure. Continues to be intubated Continues to require vasopressors to maintain blood pressure. She has been started on diuretics She was noted to have elevated BUN/creatinine. Continues on antibiotics We are consulted for renal failure Renal function remains elevated Electrolytes are stable Urine output noted. Hemoglobin today was 6.87 g/dL, S/p PRBC transfusion earlier today S/P multiple PRBCs transfusion Continues on weekly Epogen Imaging studies were noted Neurology was consulted due to deteriorating neurological status Code status has been changed to DNR She was seen in the ICU, intubated Family at the bedside Condition is critical and guarded REVIEW OF SYSTEMS: Difficult to obtain given status of the patient who remains intubated mechanically ventilated Vital Signs (last 8hr) Date Time Temp Pulse Resp B/P (MAP) Pulse Ox O2 Delivery O2 Flow Rate FiO2 02/04/25 11:39 79 30 02/04/25 09:00 78 30 02/04/25 08:25 93 24 123/65 (84) 100 30 02/04/25 08:15 96 24 119/62 (81) 100 30 02/04/25 08:00 97 26 127/67 (87) 100 30 02/04/25 07:45 94 24 116/57 (76) 100 30 02/04/25 07:30 95 24 122/61 (81) 100 30 02/04/25 07:15 132 25 124/62 (82) 100 30 02/04/25 07:00 97 25 113/61 (78) 99 30 02/04/25 06:55 95 24 118/61 (80) 100 30 02/04/25 06:17 78 30 02/04/25 06:00 99 24 125/61 (82) 98 02/04/25 05:45 99 24 126/57 (80) 100 02/04/25 05:30 101 24 138/67 (90) 100 02/04/25 05:15 100 24 155/95 (115) 98 02/04/25 05:00 99 24 138/63 (88) 99 PHYSICAL EXAM: General: acutely ill, sedated, intubated, and mechanically ventilated HEENT: head is atraumatic, pupils equal and reactive, ET tube in place Neck: supple, no masses, no lymphadenopathy, no thyromegaly, no JVD Lungs: decreased breath sounds bilaterally, symmetrical chest movement Cardio: regular rate, S1 and S2 normal, no rub or gallop Abdomen: soft, non tender, no distension, no organomegaly Extremities: trace edema bilateral lower extremities, no cyanosis or clubbing Skin: no rashes or suspicious lesions Neuro: sedated Current Medications Medications (Trade) Dose Ordered Sig/Arik Route Start Time Stop Time Status Last Admin Dose Admin Albumin Human 50 ml @ 0 mls/hr Q8H6 IV 01/24/25 14:00 01/24/25 22:00 Artificial Tears (Artificial Tears) 1 DROP OR AD Q8H OU 01/23/25 19:30 02/22/25 19:29 01/24/25 12:13 1 DROP Cefepime HCl (MAXipime 2 gm vial) 2 gm Q24H IVPB 01/23/25 12:00 02/02/25 11:59 01/24/25 12:13 2 GM Ceftriaxone Sodium (ROCEphine 1G INJ) 1 gm Q24H IVPB 01/22/25 12:00 01/22/25 16:25 DC 01/22/25 14:18 1 GM Chlorhexidine Gluconate (Peridex) 15 ml TID MM 01/23/25 21:00 02/06/25 20:59 01/24/25 09:15 15 ML Fentanyl Citrate 100 ml @ 2.5 mls/hr PROTOCOL IV 01/22/25 12:00 01/22/25 11:55 DC Fentanyl Citrate 100 ml @ 2.5 mls/hr PROTOCOL IV 01/22/25 12:00 01/29/25 11:59 01/24/25 06:59 2.5 MLS/HR Insulin Human Regular (humuLIN R 100 UNIT/ML 3ML) INSULIN SLIDING SCAL... ACHS SQ 01/22/25 21:00 02/21/25 20:59 01/23/25 12:20 2 UNIT Levetiracetam (kepPRA 500 MG TABLET) 500 mg BID PO 01/22/25 21:00 01/22/25 22:13 DC Levetiracetam 500 mg/Sodium Chloride 100 ml @ 400 mls/hr Q12H9 IV 01/22/25 22:00 02/21/25 21:59 01/24/25 09:17 400 MLS/HR Levothyroxine Sodium (SYNTHroid VIAL 100MCG) 100 mcg SYN IV 01/23/25 06:30 02/22/25 06:29 01/24/25 05:34 100 MCG Linezolid 300 ml @ 150 mls/hr Q12H IV 01/24/25 08:00 02/03/25 07:59 01/24/25 09:15 150 MLS/HR Metronidazole/ Sodium Chloride 100 ml @ 100 mls/hr Q8H6 IVPB 01/22/25 22:00 02/01/25 21:59 01/24/25 05:34 100 MLS/HR Midazolam HCl 50 ml @ 0 mls/hr PROTOCOL IV 01/22/25 12:00 01/29/25 11:59 01/22/25 20:51 1 MLS/HR Norepinephrine 250 ml @ 0 mls/hr PROTOCOL IV 01/22/25 10:00 01/23/25 09:52 DC 01/22/25 14:24 60 MLS/HR Norepinephrine Bitartrate (Norepineph 16 Mg/250ml NS Premix) per protocol PROTOCOL IV 01/23/25 10:00 02/22/25 09:59 01/23/25 23:50 16 MG Octreotide Acetate 1250 mcg/ Sodium Chloride 250 ml @ 0 mls/hr PROTOCOL IV 01/22/25 12:30 01/22/25 12:17 DC Octreotide Acetate 1250 mcg/ Sodium Chloride 250 ml @ 0 mls/hr PROTOCOL IV 01/22/25 12:30 01/24/25 09:23 DC 01/22/25 12:41 5 MLS/HR Pantoprazole Sodium (PROTonix 40MG INJ) 40 mg BID IVP 01/24/25 21:00 02/23/25 20:59 Pantoprazole Sodium 80 mg/ Sodium Chloride 100 ml @ 10 mls/hr Q10H IV 01/22/25 09:00 01/24/25 09:23 DC 01/24/25 09:17 10 MLS/HR Pharmacy Profile Note (Pharmacy Communication) 1 each ONCE MISC 01/22/25 12:00 01/22/25 11:53 DC Pharmacy Profile Note (Pharmacy Communication) 1 each ONCE MISC 01/22/25 12:00 01/22/25 11:53 DC Pharmacy Profile Note (Pharmacy Communication) 1 each ONCE MISC 01/23/25 13:00 01/23/25 13:09 DC Pharmacy Profile Note (Pharmacy Communication) 1 each ONCE MISC 01/24/25 08:00 01/24/25 07:51 DC Sodium Chloride 1,000 ml @ 150 mls/hr Q6H40M IV 01/22/25 12:00 01/23/25 10:56 DC 01/23/25 02:45 150 MLS/HR Sucralfate (Carafate) 1 gm BID PO 01/23/25 21:00 01/23/25 11:41 DC Sucralfate (Carafate) 1 gm TID PO 01/23/25 14:00 02/22/25 20:59 01/24/25 09:15 1 GM Thiamine HCl 100 mg/Sodium Chloride 50 ml @ 100 mls/hr Q24H IV 01/23/25 14:00 01/25/25 14:29 01/23/25 14:05 100 MLS/HR Vancomycin HCl (Vancomycin 750mg) 750 mg Q24H IVPB 01/23/25 17:00 01/23/25 10:56 DC Vancomycin HCl (Vancomycin Protocol) 1 each AD IV 01/22/25 15:00 01/23/25 10:56 DC LABORATORY: [ ] Hematology Labs: Test 02/04/25 04:49 Range/Units White Blood Count 14.0 H 4.8-10.8 K/uL Red Blood Count 2.21 L 4.00-5.50 MIL/uL Hemoglobin 6.7 *L 12.0-16.0 g/dL Hematocrit 19.8 *L 36-48 % Mean Corpuscular Volume 89.6 79-99 fL Mean Corpuscular Hemoglobin 30.3 27.0-33.0 pg Mean Corpuscular Hemoglobin Concent 33.8 32.0-36.0 g/dL Red Cell Distribution Width 18.9 H 11.0-15.5 % Platelet Count 74 L 130-400 K/uL Mean Platelet Volume 12.7 H 7.5-10.5 fL Immature Granulocyte % (Auto) 1.6 H 0-1 % Neutrophils (%) (Auto) 82.5 H 40.0-77.0 % Lymphocytes (%) (Auto) 11.2 L 21.0-51.0 % Monocytes (%) (Auto) 3.3 3.0-13.0 % Eosinophils (%) (Auto) 1.1 0.0-8.0 % Basophils (%) (Auto) 0.3 0.0-5.0 % Neutrophils # (Auto) 11.5 H 1.8-7.7 K/uL Lymphocytes # (Auto) 1.6 1.0-4.8 K/uL Monocytes # (Auto) 0.5 0.1-1.0 K/uL Eosinophils # (Auto) 0.16 0.00-0.70 K/uL Basophils # (Auto) 0.04 0.00-0.20 K/uL Absolute Immature Granulocyte (auto 0.23 0-1 K/uL Nucleated Red Blood Cells 2.0 H 0.0-0.19 % Chemistry Labs: Test 02/04/25 12:19 02/04/25 04:49 02/03/25 03:32 02/02/25 23:15 Range/Units Whole Blood Glucose 156 H 70-110 MG/DL Sodium Level 150 H 136-145 mmol/L Potassium Level 3.4 L 3.5-5.1 mmol/L Chloride Level 108 101-111 mmol/L Carbon Dioxide Level 15 L 21-32 mmol/L Blood Urea Nitrogen 43 H 7-18 mg/dL Creatinine 3.4 H 0.5-1.0 mg/dL Glomerular Filtration Rate Calc 14 >90 mL/min Random Glucose 151 H 70-105 mg/dL Lactic Acid Level 9.7 H 0.8-2.5 mmol/L Total Calcium 8.8 8.5-10.1 mg/dL Phosphorus Level 3.4 2.5-4.9 mg/dL Magnesium Level 2.00 1.80-2.40 mg/dL Total Bilirubin 1.5 H 0.2-1.0 mg/dL Aspartate Amino Transf (AST/SGOT) 42 H 10-37 U/L Alanine Aminotransferase (ALT/SGPT) 15 12-78 U/L Alkaline Phosphatase 1012 *H 50-136 U/L Ammonia 204 *H 11-32 umol/L Total Protein 4.8 L 6.0-8.3 g/dL Albumin 1.6 L 3.5-5.0 g/dL Procalcitonin 1.95 H 0.05-0.5 ng/mL C-Reactive Protein, Quantitative 198.20 H 0.5-3.0 mg/L Bedside Glucose Comment Protocol Initiated Coagulation Labs: Test 02/04/25 04:49 Range/Units Prothrombin Time 13.5 H 9.6-11.6 SEC Prothromb Time International Ratio 1.31 H 0.85-1.15 Activated Partial Thromboplast Time 53.7 H 26.3-35.5 [facility] / RADIOLOGY: [place] [address] IMAGING REPORT Signed PATIENT: JUSTIN KLINE MR#: [id number] : 1955 SEX: F AGE: 70 LOCATION: [facility] ORDER 2300 STATUS: ADM IN REPORT#: [id number] SERVICE 0600 REASON: intubated ORDERING PHYSICIAN: KARL RODRIGUEZ PROCEDURE: CXR1VW - CHEST 1VW CHEST 1VW REASON: intubated COMPARISON: Prior chest radiograph from 02/03/2025 is available. FINDINGS: Single view of the chest was obtained. Lungs demonstrate left-sided groundglass appearance suggesting of left-sided pleural effusion. The right lung appears to be clear.. Heart size is normal. The endotracheal tube and left-sided PICC catheter to be in satisfactory position.. There is no pulmonary vascular congestion. Mediastinum and bony thorax appear unremarkable. IMPRESSION: 1. The left lung has groundglass opacity suggesting of left-sided pleural effusion would recommend ultrasound of the chest for further evaluation 2. Support lines in satisfactory position 3. No evidence of airspace consolidation or pulmonary venous congestion. DICTATED BY: RENA MADDOX MD DATE: 02/04/251124 ELECTRONICALLY SIGNED BY: RENA MADDOX MD DATE: 02/04/251128 PATIENT: JUSTIN KLINE MR#: [id number] : 1955 SEX: F AGE: 70 LOCATION: [facility] ORDER 2300 STATUS: ADM IN REPORT#: [id number] SERVICE 06 REASON: intubated ORDERING PHYSICIAN: KARL RODRIGUEZ PROCEDURE: CXR1VW - CHEST 1VW EXAM: CR Chest, single view. CLINICAL HISTORY: ET. Intubated COMPARISON: Prior chest radiograph dated February 02, 2025. FINDINGS: The endotracheal tube is identified approximately 3.9 cm from the arminda. Mild cardiomegaly with bilateral pulmonary congestion. Mild left-sided pleural effusion with adjacent lung atelectasis. Infiltrates in the right parahilar region and lower lobe. No evidence of pneumothorax. Atherosclerotic calcification of the aortic arch. No acute osseous abnormality. IMPRESSION: The endotracheal tube is identified approximately 3.9 cm from the arminda. Mild cardiomegaly with bilateral pulmonary congestion. Mild left-sided pleural effusion with adjacent lung atelectasis. Infiltrates in the right parahilar region and lower lobe. No evidence of pneumothorax. Compared to the prior study, there is interval development of infiltrates in the right lower lobe. /[place] DICTATED BY: RADHA BECERRA Jr., MD DATE: 02/03/25808 ELECTRONICALLY SIGNED BY: RADHA BECERRA Jr., MD DATE: 02/03/25808 PATIENT: JUSTIN KLINE MR#: [id number] : 1955 SEX: F AGE: 70 LOCATION: [facility] ORDER STATUS: ADM IN REPORT#: [id number] SERVICE 0915 REASON: suspected cardiogenic shock ORDERING PHYSICIAN: KARL RODRIGUEZ PROCEDURE: ECHO CMP - ECHO 2-D COMPLETE APPROVED REPORT EXAM: Two-dimensional and M-mode echocardiogram with Doppler and color Doppler. INDICATION ICD: Suspected Cardiogenic Shock R57.0 2D Dimensions RVDd 3.1 cm LVEF(%) 71.3 (>50%) LVED Vol(simp.) 33.0 mL IVSd 1.4 (0.7-1.1cm) FS(%) 39 % LVES Vol(simp.) 10.0 mL LVDd 2.9 (3.8-5.6cm) LA (2D) 2.7 (1.6-4.0cm) LVEF(%, simp.) 69 % PWd 1.4 (0.7-1.1cm) Ao Root(2D) 3.0 (2.0-3.7cm) LA ESV INDEX (BP) 21.64 mL/m2 IVSs 1.3 cm LVOT diam 2.0 (1.8-2.4cm) LVDs 1.7 (2.5-4.0cm) PWs 1.6 cm Deformation Strain Apical 4 -16.3 % Apical 2 -13.5 % Apical 3 -15.0 % Global Strain -14.9 % M-Mode Dimensions EPSS 0.5 cm LA (MM) 2.8 (1.6-4.0cm) Ao Root(MM) 3.2 (2.0-3.7cm) Aortic Valve AoV Vmax 1.8 m/s Ao Peak GR 12.6 mmHg LVOT Vmax 1.5 m/s AoV VTI 0.3 m Ao Mean GR 7.4 mmHg LVOT VTI 0.24 m YASMEEN (VMAX) 2.72 cm2 YASMEEN (VTI) 2.9 cm2 Mitral Valve MV E Vmax 53.1 cm/s DECEL Time 76 ms MV A Vmax 87.7 cm/s P 1/2 T 20 ms E/A ratio 0.6 MVA (PHT) 11.0 cm2 TDI E/E' Medial 9.7 E/E' Lateral 8.2 Medial E' Peak V 5.48 cm/s Lateral E' Peak V 6.50 cm/s Pulmonary Valve PV Vmax 1.5 m/s PV VTI 0.22 m PV Mean GR 5.1 mmHg PV Peak GR 8.9 mmHg Tricuspid Valve TR Vmax 2.8 m/s RAP (EST) 3 mmHg RVSP 37.5 mmHg TR Peak GR 34.5 mmHg Left Ventricle Left ventricular cavity is small. GLS -15.0% There is normal LV segmental wall motion. Moderate concentric left ventricular hypertrophy. The LVEF is > 70%. Indeterminate diastolic function. Right Ventricle The right ventricle is normal size. The right ventricular systolic function is normal. Atria The left atrium size is normal. The right atrium is small in size. Aortic Valve The aortic valve is opens well. No aortic regurgitation is present. There is no aortic valvular stenosis. Mitral Valve The mitral valve is normal in structure. There is mild mitral valve regurgitation noted. Small mobile vegetation seen attached on the anterior mitral valve annulus measuring 1.2cm x 1.0cm There is no mitral valve stenosis. Tricuspid Valve The tricuspid valve is normal in structure. There is mild tricuspid valve regurgitation noted. Pulmonic Valve The pulmonary valve is normal in structure. There is no pulmonic valvular regurgitation. Great Vessels The aortic root is normal in size. The IVC is small in size and collapses >50% with inspiration. Pericardium There is no pericardial effusion. Other Information Quality : Technically difficult study due to body habitus pt currently intubated Rhythm : Tachycardia Conclusion The LVEF is > 70%. Moderate concentric left ventricular hypertrophy. DICTATED BY: LISBET MTZ MD DATE: 02/02/25926 ELECTRONICALLY SIGNED BY: LISBET MTZ MD DATE: 02/02/252231 PATIENT: JUSTIN KLINE MR#: [id number] : 1955 SEX: F AGE: 70 LOCATION: [facility] ORDER 3 STATUS: ADM IN REPORT#: [id number] SERVICE 2 REASON: intubated and resp failure ORDERING PHYSICIAN: KARL RODRIGUEZ PROCEDURE: CXR1VW - CHEST 1VW EXAM: CR Chest, 2 View. CLINICAL HISTORY: intubated and resp failure COMPARISON: Yesterday FINDINGS: LUNGS: Endotracheal tube adequately positioned below arminda. Pulmonary vascular congestion. PLEURAL SPACES: Bilateral pleural effusions. MEDIASTINUM: Cardiomegaly. BONES: No acute osseous abnormality. IMPRESSION: 1. Endotracheal tube adequately positioned below arminda. 2. Pulmonary vascular congestion. 3. Bilateral pleural effusions. 4. Cardiomegaly. /[place] DICTATED BY: KIMBERLEE FABIAN MD DATE: 02/02/251102 ELECTRONICALLY SIGNED BY: KIMBERLEE FABIAN MD DATE: 02/02/251102 PATIENT: JUSTIN KLINE MR#: [id number] : 1955 SEX: F AGE: 70 LOCATION: [facility] ORDER 38 STATUS: ADM IN REPORT#: [id number] SERVICE 37 REASON: VOMITING ASSESS FOR SBO ORDERING PHYSICIAN: KARL RODRIGUEZ AGAALICIAP PROCEDURE: ABD 1VW - ABD 1VW EXAM: CR Abdomen, 2 view. CLINICAL HISTORY: Pain. COMPARISON: None provided. FINDINGS: Nonobstructed nonspecific bowel gas pattern. No free air is evident. No abnormal calcification. No aggressive appearing osseous lesion. IMPRESSION: 1. No acute process. /[place] DICTATED BY: GOVIND HAYES MD DATE: 02/02/25806 ELECTRONICALLY SIGNED BY: GOVIND HAYES MD DATE: 02/02/25806 PATIENT: JUSTIN KLINE MR#: [id number] : 1955 SEX: F AGE: 70 LOCATION: [facility] ORDER 34 STATUS: ADM IN REPORT#: [id number] SERVICE 31 REASON: UNRESPONSIVE ORDERING PHYSICIAN: RERE BLAIR PAC PROCEDURE: BRAIN WO - MR BRAIN WO CON EXAM: MR Brain with and without Intravenous Contrast. CLINICAL HISTORY: UNRESPONSIVE WHILE TRYING TO EXTUBATE TECHNIQUE: Multisequence, multiplanar magnetic resonance images acquired of the brain with and without intravenous contrast. CONTRAST: COMPARISON: None provided. FINDINGS: BRAIN: Ill-defined areas of hyperintensities in the subcortical white matter of the right frontal and parietal lobes without diffusion restriction. 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 Age-related cerebral and cerebellar atrophy. Diffuse T2-FLAIR hyperintensities along the periventricular white matter of bilateral fronto-parietal lobes are suggestive of chronic small vessel ischemia. No restricted diffusion to indicate acute infarction. No intracranial haemorrhage. No midline shift or extra-axial fluid collection. No cerebellar tonsillar ectopia. The central arterial and venous flow voids are patent. VENTRICLES: No hydrocephalus. ORBITS: The orbits are normal. Pseudophakic lens in the right orbit. SINUSES AND MASTOIDS: Fluid signal intensity in the bilateral sphenoid sinus. Fluid signal intensity in bilateral mastoid air cells is suggestive of mastoiditis. The rest of the sinuses are clear. BONES: No acute fracture or aggressively appearing osseous lesion. IMPRESSION: 1. 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 2. 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 3. Bilateral sphenoid sinusitis and mastoiditis. /[place] DICTATED BY: SELIN BURNS MD DATE: 02/01/251609 ELECTRONICALLY SIGNED BY: SELIN BURNS MD DATE: 02/01/251609 PATIENT: JUSTIN KLINE MR#: [id number] : 1955 SEX: F AGE: 70 LOCATION: [facility] ORDER 99 STATUS: ADM IN REPORT#: [id number] SERVICE 06 REASON: pp ORDERING PHYSICIAN: RERE BLAIR PAC PROCEDURE: CXR1VW - CHEST 1VW EXAM: CR Chest, 1 View. CLINICAL HISTORY: pp COMPARISON: Jan 31, 2025. FINDINGS: ETT tip 2.9 cm above arminda. Left PICC tip in SVC. LUNGS: Left perihilar and left basilar airspace disease, slightly more apparent on today's study. Improved left lung aeration. Small left pleural effusion. MEDIASTINUM: Cardiomegaly. BONES: No aggressive appearing osseous lesion seen. IMPRESSION: Left perihilar and left basilar airspace disease, slightly more apparent on today's study. Improved left lung aeration. Small left pleural effusion. /[place] DICTATED BY: GOVIND HAYES MD DATE: 02/02/25709 ELECTRONICALLY SIGNED BY: GOVIND HAYES MD DATE: 02/02/25709 PATIENT: JUSTIN KLINE MR#: [id number] : 1955 SEX: F AGE: 70 LOCATION: [facility] ORDER 1 STATUS: ADM IN REPORT#: [id number] SERVICE 1 REASON: UNRESPONSIVE ORDERING PHYSICIAN: RERE BLAIR PROCEDURE: HEAD WO - CT HEAD/BRAIN W/O CONTRAST EXAM: CT Head Without IV contrast. CLINICAL HISTORY: UNRESPONSIVE TECHNIQUE: Axial computed tomography images of the head/brain without intravenous contrast. COMPARISON: None provided. FINDINGS: BRAIN: There is diffuse cerebral atrophy, evidenced by prominence of the cortical sulci and ventricular system, compatible with age-related changes. There is evidence of chronic small vessel ischemic change characterized by bilateral periventricular and deep white matter hypodensities. Ill-defined hypodensity with loss of rodriguez-white matter interface in the right frontal and high parietal lobes concerning for a possible infarct. No evidence of acute hemorrhage. No mass lesion. No midline shift or extra-axial collections. VENTRICLES: No hydrocephalus. ORBITS: The orbits are unremarkable. SINUSES AND MASTOIDS: Mucosal thickening in bilateral sphenoidal sinuses. The rest of the Paranasal sinuses and mastoid air cells are clear. BONES: No fracture. SOFT TISSUES: Unremarkable. IMPRESSION: 1. Ill-defined hypodensity with loss of rodriguez-white matter interface in the right frontal and high parietal lobes concerning for possible infarct. Consider MRI 2. No acute intracranial hemorrhage. /[place] DICTATED BY: SELIN BURNS MD DATE: 01/31/251730 ELECTRONICALLY SIGNED BY: SELIN BURNS MD DATE: 01/31/25 173 PATIENT: JUSTIN KLINE MR#: [id number] : 1955 SEX: F AGE: 70 LOCATION: [facility] ORDER 0914 STATUS: ADM IN REPORT#: [id number] SERVICE 0912 REASON: pp ORDERING PHYSICIAN: RERE BLAIR PROCEDURE: CXR1VW - CHEST 1VW EXAM: CR Chest, 1 View. CLINICAL HISTORY: pp COMPARISON: 01/30 20:49 EDT CR - CHEST 1VW FINDINGS: Essentially stable since prior exam. ETT tip 4 cm above arminda. Left PICC tip in SVC. stable left perihilar and left basilar airspace disease and small left pleural effusion. Right lung remains relatively clear. Negative for pneumothorax. Heart size, pulmonary vascularity and mediastinum within normal limits. PLEURAL SPACES: No evidence of pleural effusion or pneumothorax. MEDIASTINUM: Cardiac size and mediastinal contours within normal limits. BONES: No aggressive appearing osseous lesion seen. IMPRESSION: Stable chest. Support lines and tubes appear appropriate position and stable. Stable left perihilar and left basilar airspace disease and small left pleural effusion. Right lung remains clear. /[place] DICTATED BY: RADHA BECERRA Jr., MD DATE: 01/31/251312 ELECTRONICALLY SIGNED BY: RADHA BECERRA Jr., MD DATE: 01/31/25 131 PATIENT: JUSTIN KLINE MR#: [id number] : 1955 SEX: F AGE: 70 LOCATION: [facility] ORDER 0758 STATUS: ADM IN REPORT#: [id number] SERVICE 5 REASON: congestion,intubated ORDERING PHYSICIAN: RERE BLAIR PROCEDURE: CXR1VW - CHEST 1VW EXAM: CR Chest, 2 View. CLINICAL HISTORY: congestion,intubated COMPARISON: Yesterday FINDINGS: LUNGS: Endotracheal tube adequately positioned above level arminda. Left retrocardiac opacity could be due to pleural effusion/atelectasis. Pulmonary vascular congestion. PLEURAL SPACES: Small right pleural effusion. MEDIASTINUM: Cardiomegaly. BONES: No acute osseous abnormality. IMPRESSION: 1. Endotracheal tube adequately positioned above the arminda. 2. Left retrocardiac opacity, possibly due to pleural effusion or atelectasis. 3. Pulmonary vascular congestion. 4. Small right pleural effusion. 5. Cardiomegaly. /[place] DICTATED BY: KIMBERLEE FABIAN MD DATE: 01/30/251050 ELECTRONICALLY SIGNED BY: KIMBERLEE FABIAN MD DATE: 01/30/251050 PATIENT: JUSTIN KLINE MR#: [id number] : 1955 SEX: F AGE: 70 LOCATION: [facility] ORDER 0 STATUS: ADM IN REPORT#: [id number] SERVICE 9 REASON: intubated ORDERING PHYSICIAN: MISTI DAY APRN PROCEDURE: CXR1VW - CHEST 1VW CHEST 1VW REASON: intubated COMPARISON: Prior chest radiograph from 01/28/2025 is available. FINDINGS: Single view of the chest was obtained. They demonstrate mild cardiomegaly. There is uncoiling atherosclerotic change of thoracic aorta. The lung hassan demonstrate there is an infiltrate in the left lower lung with left-sided pleural effusion which appears to be worsening. The remaining lung hassan are clear. Endotracheal tube is unchanged in satisfactory position. There is mild elevation of the right hemidiaphragm.. Mediastinum and bony thorax appear unremarkable. The bony thorax demonstrate mild osteopenia.. IMPRESSION: 1. There is infiltrate annual in the left lower lung with left-sided pleural effusion 2. Mild cardiomegaly 3. Endotracheal tube in satisfactory position.. DICTATED BY: RENA MADDOX MD DATE: 01/29/251010 ELECTRONICALLY SIGNED BY: RENA MADDOX MD DATE: 01/29/251014 PATIENT: JUSTIN KLINE MR#: [id number] : 1955 SEX: F AGE: 70 LOCATION: [facility] ORDER 0834 STATUS: ADM IN REPORT#: [id number] SERVICE 0833 REASON: pp ORDERING PHYSICIAN: RERE BLAIR PROCEDURE: CXR1VW - CHEST 1VW CHEST 1VW REASON: pp COMPARISON: Prior study from 01/26/2025 is available. FINDINGS: Single view of the chest was obtained. Lungs are clear. There is groundglass appearance suggesting of left-sided pleural effusion. Heart size is normal. There is uncoiling atherosclerotic change of thoracic aorta. There is no pulmonary vascular congestion. The endotracheal tube is in satisfactory position. Mediastinum and bony thorax appear unremarkable. IMPRESSION: 1. No evidence of airspace consolidation or pulmonary venous congestion 2. There is suggestion of a left-sided gyznw-xa-hlighnwg pleural effusion 3. Endotracheal tube in satisfactory position.. DICTATED BY: RENA MADDOX MD DATE: 01/28/25 110 ELECTRONICALLY SIGNED BY: RENA MADDOX MD DATE: 01/28/25 1112 PATIENT: JUSTIN KLINE MR#: [id number] : 1955 SEX: F AGE: 70 LOCATION: [facility] ORDER 2300 STATUS: ADM IN REPORT#: [id number] SERVICE 0600 REASON: vented pt ORDERING PHYSICIAN: KARL RODRIGUEZ PROCEDURE: CXR1VW - CHEST 1VW EXAM: XR Chest, 3 Views. CLINICAL HISTORY: 70-year-old female ventilated patient. COMPARISON: Prior exam from 01/25/2025 at 3:39 PM. FINDINGS: LUNGS: Minimal pulmonary congestion, new compared to the prior exam. PLEURAL SPACES: No pleural effusion or pneumothorax. HEART: Moderate cardiomegaly, somewhat more pronounced compared to the prior exam. BONES: No acute osseous abnormality. VASCULATURE: Atherosclerotic aorta. LINES AND TUBES: Endotracheal tube tip at the arminda. Recommendation for withdrawal of 1 to 2 cm. IMPRESSION: 1. Endotracheal tube tip at the arminda. Recommend withdrawal of 1 to 2 cm. 2. Moderate cardiomegaly, somewhat more pronounced compared to the prior exam. 3. Atherosclerotic aorta. 4. Minimal pulmonary congestion, new compared to the prior XR chest from 01/25/2025 at 3:39 PM. /[place] DICTATED BY: TOM SANCHEZ MD DATE: 01/26/252120 ELECTRONICALLY SIGNED BY: TOM SANCHEZ MD DATE: 01/26/252120 PATIENT: JUSTIN KLINE MR#: [id number] : 1955 SEX: F AGE: 70 LOCATION: 2[facility] ORDER 1539 STATUS: ADM IN REPORT#: [id number] SERVICE 153 REASON: picc placement ORDERING PHYSICIAN: RERE BLAIR PROCEDURE: CXR1VW - CHEST 1VW CHEST 1VW REASON: picc placement COMPARISON: Prior chest radiograph from 01/25/2025 at 1534 is available. FINDINGS: Single view of the chest was obtained. Lungs are clear. Heart size is normal. There is uncoiling atherosclerotic change of thoracic ureter. There is no pulmonary vascular congestion. Mediastinum and bony thorax appear unremarkable. There is a right-sided PIC catheter tip in superior vena cava at the cavoatrial junction. Endotracheal tube is in satisfactory position. IMPRESSION: 1. Support lines are in satisfactory position.. 2. No evidence of airspace consolidation or pulmonary venous congestion. DICTATED BY: RENA MADDOX MD DATE: 01/25/258 ELECTRONICALLY SIGNED BY: RENA MADDOX MD DATE: 01/25/25 1604 PATIENT: JUSTIN KLINE MR#: [id number] : 1955 SEX: F AGE: 70 LOCATION: 2[facility] ORDER 1529 STATUS: ADM IN REPORT#: [id number] SERVICE 152 REASON: PICC placement ORDERING PHYSICIAN: RERE BLAIR PROCEDURE: CXR1VW - CHEST 1VW EXAM: XR Chest, 1 View. CLINICAL HISTORY: 70 year old female PICC placement right upper extremity. COMPARISON: None provided. FINDINGS: LUNGS: The lungs are clear. No consolidation. PLEURAL SPACES: No pleural effusion or pneumothorax. HEART: The heart size is enlarged. BONES: No acute osseous abnormality. LINES AND TUBES: PICC line with tip in the SVC. Endotracheal tube with tip in the arminda. VASCULATURE: Atherosclerotic aorta, similar to prior. IMPRESSION: 1. No acute cardiopulmonary pathology. 2. PICC line with tip in the SVC and endotracheal tube with tip in the arminda. /[place] DICTATED BY: TOM SANCHEZ MD DATE: 01/25/252108 ELECTRONICALLY SIGNED BY: TOM SANCHEZ MD DATE: 01/25/252108 PATIENT: JUSTIN KLINE MR#: [id number] : 1955 SEX: F AGE: 70 LOCATION: [facility] ORDER 99 STATUS: ADM IN REPORT#: [id number] SERVICE 06 REASON: vented pt ORDERING PHYSICIAN: KARL RODRIGUEZ PROCEDURE: CXR1VW - CHEST 1VW EXAM: XR Chest, 2 Views. CLINICAL HISTORY: 70-year-old female, ventilated. COMPARISON: 01/24/2025. FINDINGS: LUNGS: Atelectasis lung bases. PLEURAL SPACES: Left pleural effusion, similar to prior XR chest from 01/24/2025 at 4:48 am. HEART: The heart size is normal. BONES: No acute osseous abnormality. IMPRESSION: 1. Left pleural effusion, similar to prior XR chest from 01/24/2025 at 4:48 am. 2. Atelectasis lung bases. /[place] DICTATED BY: TOM SANCHEZ MD DATE: 01/25/252038 ELECTRONICALLY SIGNED BY: TOM SANCHEZ MD DATE: 01/25/252038 PATIENT: JUSTIN KLINE MR#: [id number] : 1955 SEX: F AGE: 70 LOCATION: 2[facility] ORDER 1510 STATUS: ADM IN REPORT#: [id number] SERVICE 1508 REASON: HGB drop, assess for possible GI bleed ORDERING PHYSICIAN: KIRSTEN KRUSE MD PROCEDURE: GIBLEED - NM GI BLOOD LOSS IMAG Examination NM radiolabeled red blood cell study History Gastrointestinal bleeding Technique After IV administration of Tc-99m labeled red autologous blood cells, anterior projection images of the abdomen and pelvis were obtained dynamically for one hour. Findings Following administration of radiolabeled red blood cells, there is normal activity seen in cardiovascular and genitourinary structures, the liver and spleen. There is no evidence for extravasation of radiolabeled red blood cells during the examination. IMPRESSION: No evidence of gastrointestinal hemorrhage during the course of examination acquisition. /[place] DICTATED BY: RADHA BECERRA Jr., MD DATE: 01/25/251457 ELECTRONICALLY SIGNED BY: RADHA BECERRA Jr., MD DATE: 01/25/251457 PATIENT: JUSTIN KLINE MR#: [id number] : 1955 SEX: F AGE: 70 LOCATION: 2[facility] ORDER 1143 STATUS: ADM IN REPORT#: [id number] SERVICE 1131 REASON: new onset swelling in her arms ORDERING PHYSICIAN: KIRSTEN KRUSE MD PROCEDURE: VENOUS ALCIDES - US VENOUS DOPPLER BILATERAL EXAMINATION: SPECTRAL DOPPLER ULTRASOUND EXAMINATION OF THE BILATERAL UPPER EXTREMITY VEINS. CLINICAL HISTORY: Swelling. COMPARISON: None. TECHNIQUE: Grayscale, color, and spectral Doppler images of the bilateral upper extremity veins are submitted. FINDINGS: Right: The cephalic and brachial veins are patent. These veins show normal flow with physiological changes of phasicity and augmentation. There is thrombosis in the subclavian, axillary, and basilic veins. Left: The internal jugular, subclavian, axillary, basilic, brachial veins are patent. These veins show normal flow with physiological changes of phasicity and augmentation. IMPRESSION: Deep vein thrombosis in the right subclavian and axillary veins. Right basilic vein thrombosis. The messaging architect informed the patient's nurse at the time of the exam. /[place] DICTATED BY: GOVIND HAYES MD DATE: 01/25/25722 ELECTRONICALLY SIGNED BY: GOVIND HAYES MD DATE: 01/25/25722 PATIENT: JUSTIN KLINE MR#: [id number] : 1955 SEX: F AGE: 70 LOCATION: 2[facility] ORDER 2300 STATUS: ADM IN REPORT#: [id number] SERVICE 06 REASON: vented pt ORDERING PHYSICIAN: KARL RODRIGUEZ SENIOR RESIDENT CARE DIRECTOR PROCEDURE: CXR1VW - CHEST 1VW EXAM: CR Chest, 1 View. CLINICAL HISTORY: vented pt COMPARISON: None provided. FINDINGS: LUNGS: Endotracheal tube midline above arminda Slight worsening left lower lobe infiltrate PLEURAL SPACES: No evidence of pleural effusion or pneumothorax. MEDIASTINUM: Cardiac size and mediastinal contours within normal limits. BONES: No acute osseous abnormality. IMPRESSION: 1. Endotracheal tube midline above arminda 2. Slight worsening left lower lobe infiltrate /[place] DICTATED BY: ANA ALSTON MD DATE: 01/24/252109 ELECTRONICALLY SIGNED BY: ANA ALSTON MD DATE: 01/24/252109 PATIENT: JUSTIN KLINE MR#: [id number] : 1955 SEX: F AGE: 70 LOCATION: 2[facility] ORDER 1301 STATUS: ADM IN REPORT#: [id number] SERVICE 1258 REASON: Decreased renal function ORDERING PHYSICIAN: SAUMYA ANTONIO PROCEDURE: RENAL - US RENAL SONOGRAM EXAMINATION: ULTRASOUND OF THE RETROPERITONEUM. CLINICAL HISTORY: Decreased renal function. COMPARISON: CT abdomen and pelvis without contrast dated 01/22/2025. TECHNIQUE: Real-time grayscale ultrasound images of the kidneys. FINDINGS: The right kidney is smaller in caliber, and the left kidney is normal in caliber, the right kidney measures 7.4 x 3.9 x 3.1 cm and the left kidney measures 8.2 x 3.0 x 3.3 cm in its craniocaudal, AP, and transverse dimensions respectively. There is normal renal cortical thickness and increased cortical echogenicity. There is no renal calculus or hydronephrosis. The urinary bladder is empty. There is Kamara???s bulb. IMPRESSION: Relatively small right kidney. Increased echogenicity of both the kidneys may reflect renal parenchymal disease. Recommend clinical correlation and with laboratory parameters. Kamara???s bulb is in situ. /[place] DICTATED BY: RADHA BECERRA Jr., MD DATE: 01/23/252300 ELECTRONICALLY SIGNED BY: RADHA BECERRA Jr., MD DATE: 01/23/252300 PATIENT: JUSTIN KLINE MR#: [id number] : 1955 SEX: F AGE: 70 LOCATION: [facility] ORDER 4 STATUS: ADM IN REPORT#: [id number] SERVICE 0743 REASON: intubated,congestion ORDERING PHYSICIAN: KARL RODRIGUEZ PROCEDURE: CXR1VW - CHEST 1VW EXAM: CR Chest, 1 View. CLINICAL HISTORY: intubated,congestion COMPARISON: 01/22 16:55 EDT CR - CHEST 1VW FINDINGS: ET tube 3.7 cm above the arminda. LUNGS: The lungs show no infiltrate or other acute finding. PLEURAL SPACES: No pleural effusion or pneumothorax. MEDIASTINUM: Cardiac size and mediastinal contours within normal limits. BONES: No acute osseous abnormality. IMPRESSION: No acute cardiopulmonary pathology is evident. ET tube 3.7 cm above the arminda. /[place] DICTATED BY: RADHA BECERRA Jr., MD DATE: 01/23/25 1010 ELECTRONICALLY SIGNED BY: RADHA BECERRA Jr., MD DATE: 01/23/251009 PATIENT: JUSTIN KLINE MR#: [id number] : 1955 SEX: F AGE: 70 LOCATION: 2[facility] ORDER 23 STATUS: ADM IN REPORT#: [id number] SERVICE 22 REASON: NG tube location ORDERING PHYSICIAN: KENA HAWLEY MD PROCEDURE: ABD 1VW - ABD 1VW ADDENDUM REPORT ADDENDUM: Results were shared by telephone at 10:10 pm on 01-22-25 and acknowledged by KENA Rivas. /[place] EXAM: CR Abdomen, 1 View. CLINICAL HISTORY: NG tube location COMPARISON: None provided. FINDINGS: BOWEL: The bowel gas pattern is within normal limits. PERITONEUM/SOFT TISSUES: No free air evident. No pathologic appearing calcification. BONES: No acute osseous abnormality. MISCELLANEOUS: No nasogastric tube identified. Gastrostomy tube left upper IMPRESSION: 1. No nasogastric tube identified. 2. Gastrostomy tube left upper quadrant /[place] DICTATED BY: ANA ALSTON MD DATE: 01/22/252210 ELECTRONICALLY SIGNED BY: DATE: EXAM: CR Abdomen, 1 View. CLINICAL HISTORY: NG tube location COMPARISON: None provided. FINDINGS: BOWEL: The bowel gas pattern is within normal limits. PERITONEUM/SOFT TISSUES: No free air evident. No pathologic appearing calcification. BONES: No acute osseous abnormality. MISCELLANEOUS: No nasogastric tube identified. Gastrostomy tube left upper IMPRESSION: 1. No nasogastric tube identified. 2. Gastrostomy tube left upper quadrant /[place] DICTATED BY: ANA ALSTON MD DATE: 01/22/252200 ELECTRONICALLY SIGNED BY: ANA ALSTON MD DATE: 01/22/252200 PATIENT: JUSTIN KLINE MR#: [id number] : 1955 SEX: F AGE: 70 LOCATION: [facility] ORDER 50 STATUS: ADM IN REPORT#: [id number] SERVICE 49 REASON: post intubation CXR ORDERING PHYSICIAN: KARL RODRIGUEZ PROCEDURE: CXR1VW - CHEST 1VW ADDENDUM REPORT ADDENDUM: Results were shared by telephone at 6:33 pm on 01-22-25 and acknowledged by patient's nurse JESSICA Mas. /[place] EXAM: CR Chest, 2 View. CLINICAL HISTORY: post intubation CXR COMPARISON: None provided. FINDINGS: LUNGS: Endotracheal tube appears midline above arminda PLEURAL SPACES: No pleural effusion or pneumothorax. MEDIASTINUM: The cardiomediastinal silhouette is within normal limits. BONES: No acute osseous abnormality. MISCELLANEOUS: Question nasogastric tube in the thoracic inlet. IMPRESSION: 1. Endotracheal tube appears midline above arminda 2. Question nasogastric tube in the thoracic inlet. /[place] DICTATED BY: ANA ALSTON MD DATE: 01/22/251835 ELECTRONICALLY SIGNED BY: DATE: EXAM: CR Chest, 2 View. CLINICAL HISTORY: post intubation CXR COMPARISON: None provided. FINDINGS: LUNGS: Endotracheal tube appears midline above arminda PLEURAL SPACES: No pleural effusion or pneumothorax. MEDIASTINUM: The cardiomediastinal silhouette is within normal limits. BONES: No acute osseous abnormality. MISCELLANEOUS: Question nasogastric tube in the thoracic inlet. IMPRESSION: 1. Endotracheal tube appears midline above arminda 2. Question nasogastric tube in the thoracic inlet. /[place] DICTATED BY: ANA ALSTON MD DATE: 01/22/251821 ELECTRONICALLY SIGNED BY: ANA ALSTON MD DATE: 01/22/251821 PATIENT: JUSTIN KLINE MR#: [id number] : 1955 SEX: F AGE: 70 LOCATION: [facility] ORDER 1512 STATUS: ADM IN REPORT#: [id number] SERVICE 1509 REASON: transaminitis rule out CBD dilation/obstruction cholangitis ORDERING PHYSICIAN: KARL RODRIGUEZ PROCEDURE: ABDRUQLTD - US ABDOMINAL RUQ\LTD EXAMINATION: ULTRASOUND OF THE ABDOMEN (LIMITED) WITH COLOR DOPPLER. CLINICAL HISTORY: Transaminitis. To rule out CBD obstruction. COMPARISON: CT abdomen and pelvis without contrast from the same day. TECHNIQUE: Real-time grayscale ultrasound images of the abdomen. In addition, color Doppler is medically necessary to perform in order to evaluate vascularity and blood flow. FINDINGS: Liver: Normal in caliber, the right hepatic lobe measures 15.4 cm in the craniocaudal dimension. There is increased echogenicity of the hepatic parenchyma. There is no focal hepatic abnormality or intrahepatic biliary ductal dilatation. There is normal spectral Doppler of the main portal vein. Gallbladder: Within normal limits with normal wall thickness (0.22 cm). No hyperemia or pericholecystic free fluid. There are few calculi, the largest measure 1.5 cm. Common bile duct is normal in caliber, measuring 0.28 cm. Pancreas: Obscured by overlying bowel gas. The right kidney is normal in caliber, the right kidney measures 8.2 x 3.3 x 2.9 cm in craniocaudal, AP, and transverse dimensions respectively. There is normal renal cortical thickness, and cortical echogenicity. There is no renal calculus or hydronephrosis. IMPRESSION: Hepatic steatosis. Cholelithiasis. No cholecystitis. /[place] DICTATED BY: GOVIND HAYES MD DATE: 01/23/25856 ELECTRONICALLY SIGNED BY: GOVIND HAYES MD DATE: 01/23/25856 PATIENT: JUSTIN KLINE MR#: [id number] : 1955 SEX: F AGE: 70 LOCATION: [facility] ORDER 26 STATUS: ADM IN REPORT#: [id number] SERVICE 25 REASON: PERICARDIAL EFFUSION. Please also assess EF ORDERING PHYSICIAN: KENA HAWLEY MD PROCEDURE: ECHO [facility] - ECHO 2-D COMPLETE APPROVED REPORT EXAM: Two-dimensional and M-mode echocardiogram with Doppler and color Doppler. INDICATION ICD: Assess pericardial effusion and ejection fraction 2D Dimensions RVDd 3.0 cm LVEF(%) 49.3 (>50%) LVED Vol(simp.) 20.0 mL IVSd 1.9 (0.7-1.1cm) FS(%) 23 % LVES Vol(simp.) 9.0 mL LVDd 2.4 (3.8-5.6cm) LA (2D) 2.6 (1.6-4.0cm) LVEF(%, simp.) 55 % PWd 2.0 (0.7-1.1cm) Ao Root(2D) 2.7 (2.0-3.7cm) LA ESV INDEX (BP) 2 2.00 mL/m2 IVSs 2.0 cm LVOT diam 2.0 (1.8-2.4cm) LVDs 1.8 (2.5-4.0cm) IVC diam 1.2 cm PWs 1.7 cm Deformation Strain Apical 4 -7.1 % Apical 2 -6.9 % Apical 3 -10.1 % Global Strain -8.0 % M-Mode Dimensions EPSS 0.8 cm LA (MM) 2.3 (1.6-4.0cm) Ao Root(MM) 2.9 (2.0-3.7cm) Aortic Valve AoV Vmax 2.1 m/s Ao Peak GR 17.0 mmHg LVOT Vmax 2.1 m/s AoV VTI 0.2 m Ao Mean GR 8.4 mmHg LVOT VTI 0.22 m YASMEEN (VMAX) 3.02 cm2 YASMEEN (VTI) 3.6 cm2 Mitral Valve MV E Vmax 51.6 cm/s DECEL Time 82 ms MV A Vmax 69.0 cm/s P 1/2 T 19 ms E/A ratio 0.7 MVA (PHT) 11.9 cm2 TDI E/E' Medial 6.8 E/E' Lateral 9.3 Medial E' Peak V 7.57 cm/s Lateral E' Peak V 5.54 cm/s Pulmonary Valve PV Vmax 1.3 m/s PV VTI 0.14 m PV Mean GR 3.5 mmHg PV Peak GR 6.5 mmHg Tricuspid Valve TR Vmax 1.5 m/s RAP (EST) 3 mmHg RVSP 12.4 mmHg TR Peak GR 9.4 mmHg Left Ventricle Left ventricular cavity is small. GLS -8.0% Severe concentric left ventricular hypertrophy. LVEF is 50-55%. The left ventricular diastolic function is normal. Right Ventricle The right ventricle is normal size. The right ventricular systolic function is normal. Atria The left atrium size is normal. The right atrium is small in size. Aortic Valve The aortic valve is normal in structure. No aortic regurgitation is present. There is no aortic valvular stenosis. Mitral Valve The mitral valve is normal in structure. There is trace of mitral valve regurgitation noted. There is no mitral valve stenosis. Tricuspid Valve The tricuspid valve is normal in structure. There is trace of tricuspid valve regurgitation noted. Pulmonic Valve Pulmonic valve is not well visualized. There is no pulmonic valvular regurgitation. Great Vessels The aortic root is normal in size. The IVC is normal in size and collapses >50% with inspiration. Pericardium There is no pericardial effusion. Other Information Quality : Technically difficult study due to body habitus, pt intubated Rhythm : Tachycardia Conclusion LVEF is 50-55%. Severe concentric left ventricular hypertrophy. The left ventricular diastolic function is normal. There is no pericardial effusion. DICTATED BY: GIULIANA AWAN DO DATE: 01/22/25 1318 ELECTRONICALLY SIGNED BY: GIULIANA AWAN DO DATE: 01/23/25 4758 PATIENT: JUSTIN KLINE MR#: [id number] : 1955 SEX: F AGE: 70 LOCATION: [facility] ORDER 115 STATUS: ADM IN REPORT#: [id number] SERVICE 1151 REASON: S/P INTUBATION. ET tube position ORDERING PHYSICIAN: KENA HAWLEY MD PROCEDURE: CXR1VW - CHEST 1VW EXAM: CR Chest, 2 View. CLINICAL HISTORY: S/P INTUBATION. ET tube position COMPARISON: Radiograph from January 22 at 8:53 AM FINDINGS: Endotracheal tube terminates 1.4 cm above the arminda. LUNGS: There is no mass, infiltrate, or acute pulmonary abnormality. PLEURAL SPACES: No pleural effusion or pneumothorax. MEDIASTINUM: Cardiac size and mediastinal contours within normal limits. Atherosclerosis of the thoracic aorta. BONES: No acute osseous abnormality. IMPRESSION: 1. Endotracheal tube positioned 1.4 cm above the arminda. 2. No acute cardiopulmonary abnormality. /[place] DICTATED BY: RADHA BECERRA Jr., MD DATE: 01/22/251309 ELECTRONICALLY SIGNED BY: RADHA BECERRA Jr., MD DATE: 01/22/251309 PATIENT: JUSTIN KLINE MR#: [id number] : 1955 SEX: F AGE: 70 LOCATION: [facility] ORDER 8 STATUS: REG ER REPORT#: [id number] SERVICE 0948 REASON: gi bleed ORDERING PHYSICIAN: JULISA PETERSON MD PROCEDURE: ABD PEL WO - CT ABDOMEN/PELVIS W/O CONTRAST CT ABDOMEN/PELVIS W/O CONTRAST REASON: gi bleed COMPARISON: None. FINDINGS: Lung bases are clear. There is a small left-sided pleural effusion. There is coronary calcifications suggesting coronary artery disease. There is suggestion of small pericardial effusion. There is a moderate size hiatal hernia. . There are no focal liver lesions. There are normal-appearing kidneys.. Spleen and pancreas appear unremarkable. The gallbladder appears normal as well. There is a feeding gastrostomy tube in place. Bowel loops appear unremarkable. This includes normal appearance of the appendix . There is fecal stasis in the rectal vault. Abutting the right lobe of the bowel in the right lower quadrant and abutting the right psoas muscle there is a a cystic structure measuring 5.9 x 3.9 cm. There is no evidence of free fluid or intraperitoneal air. There are no focal fluid collections. The retroperitoneum appear normal as do pelvic soft tissue structures. Aorta and iliac vessels demonstrate diffuse atherosclerotic changes. The anterior abdominal wall is intact. Osseous structures appear unremarkable. The uterus is surgically absent. IMPRESSION: 1. No acute process seen in CT of abdomen and pelvis without intravenous contrast 2. In the right adnexal region there is a cystic structure measuring 5.9 x 3.9 cm 3. Fecal stasis impaction seen in the rectal vault CT was performed with one or more following dose reduction techniques: automated exposure control, adjustment of the mA and kv according to patient's size, or use of a iterative reconstruction technique. DICTATED BY: RENA MADDOX MD DATE: 01/22/25 1044 ELECTRONICALLY SIGNED BY: RENA MADDOX MD DATE: 01/22/25 1051 PATIENT: JUSTIN KLINE MR#: [id number] : 1955 SEX: F AGE: 70 LOCATION: [facility] ORDER 8 STATUS: [facility] REPORT#: [id number] SERVICE 0948 REASON: gi bleed ORDERING PHYSICIAN: JULISA PETERSON MD PROCEDURE: ABD PEL WO - CT ABDOMEN/PELVIS W/O CONTRAST CT ABDOMEN/PELVIS W/O CONTRAST REASON: gi bleed COMPARISON: None. FINDINGS: Lung bases are clear. There is a small left-sided pleural effusion. There is coronary calcifications suggesting coronary artery disease. There is suggestion of small pericardial effusion. There is a moderate size hiatal hernia. . There are no focal liver lesions. There are normal-appearing kidneys.. Spleen and pancreas appear unremarkable. The gallbladder appears normal as well. There is a feeding gastrostomy tube in place. Bowel loops appear unremarkable. This includes normal appearance of the appendix . There is fecal stasis in the rectal vault. Abutting the right lobe of the bowel in the right lower quadrant and abutting the right psoas muscle there is a a cystic structure measuring 5.9 x 3.9 cm. There is no evidence of free fluid or intraperitoneal air. There are no focal fluid collections. The retroperitoneum appear normal as do pelvic soft tissue structures. Aorta and iliac vessels demonstrate diffuse atherosclerotic changes. The anterior abdominal wall is intact. Osseous structures appear unremarkable. The uterus is surgically absent. IMPRESSION: 1. No acute process seen in CT of abdomen and pelvis without intravenous contrast 2. In the right adnexal region there is a cystic structure measuring 5.9 x 3.9 cm 3. Fecal stasis impaction seen in the rectal vault CT was performed with one or more following dose reduction techniques: automated exposure control, adjustment of the mA and kv according to patient's size, or use of a iterative reconstruction technique. DICTATED BY: RENA MADDOX MD DATE: 01/22/251043 ELECTRONICALLY SIGNED BY: RENA MADDOX MD DATE: 01/22/251050 PATIENT: JUSTIN KLINE MR#: [id number] : 1955 SEX: F AGE: 70 LOCATION: [facility] ORDER 9 STATUS: [facility] REPORT#: [id number] SERVICE 7 REASON: cp ORDERING PHYSICIAN: JULISA PETERSON MD PROCEDURE: CXR1VW - CHEST 1VW EXAM: Chest radiograph 1 view HISTORY: Chest pain COMPARISON: None FINDINGS: No pulmonary consolidations. No pleural effusion or pneumothorax. Enlarged cardiac silhouette. Tortuous calcified aorta. No overt congestion. Degenerative changes. IMPRESSION: No acute cardiopulmonary disease. /[place] DICTATED BY: DESTINY CASTELLANOS MD DATE: 01/22/251058 ELECTRONICALLY SIGNED BY: DESTINY CASTELLANOS MD DATE: 01/22/251058 ASSESSMENT: Acute renal failure Anemia Hypoalbuminemia Septic shock requiring pressors, POA Hemorrhagic shock Septic shock Deep vein thrombosis in the right subclavian and axillary veins and right basilic vein thrombosis Acute metabolic encephalopathy POA Acute Hypoxic rep failure requiring intubation for airway protection POA Acute complicated cystitis POA Acute on chronic anemia 2/ GI Bleed (Hematemesis) POA Hyperglycemia in the presence of type 2 diabetes mellitus, POA right adnexal region there is a cystic structure measuring 5.9 x 3.9 cm Thrombocytosis Hypokalemia Electrolyte derangement (hypokalemia, hypocalcemia) severe Hypoalbuminemia Malnutrition Transaminitis Elevated TSH suspected myxedema Uncontrolled type 2 diabetes mellitus Essential hypertension Anemia Prior history of CVA Right dbtso-luu-afvi amputation G-tube in situ Bed ridden Recent hospitalization [facility] for hematemesis PLAN: Labs, diagnostic, radiologic exams reviewed and interpreted by myself and supervising physician. We have reviewed external records in detail Diuretics as per critical care team There is no need for emergent renal replacement therapy at this time. Require close monitoring of renal function and electrolytes Order CBC, CMP, PT/PTT, and electrolytes in am Continue with antibiotics Continue mechanical ventilation and sedation Continue with IV pressors Monitor blood pressure adjust medication doses as needed Avoid hypotensive episodes May use Dilaudid 0.5 mg IV every 6 hours as needed for severe pain Monitor blood sugars Strict intake, output, and daily weight should be monitored Please renally adjust medications Avoid nephrotoxic and nonsteroidal drugs Avoid contrast if possible Will continue to monitor renal function, anemia, electrolytes Treatment plan discussed with patient Questions were answered We have discussed with the other team physicians in detail about the care plan We will continue to monitor the patient closely Total critical care time spent with patient, nursing staff, critical care team over 35 minutes ATTESTATION BY PHYSICIAN I have seen and examined the patient. I reviewed the documentation, medical decision making, and treatment plan as noted by the mid-level provider above. I agree with the findings and plan of care. CHRISTELLE SIMENTAL MD, [facility] Feb 04, 2025 12:48
--- NOTE | 2025-02-04 15:00 | PN ---
[facility] PROGRESS NOTE Date of Service: Feb 04, 2025 Time of Service: 8:10 SUBJECTIVE: 70-year-old female with past medical history of diabetes mellitus type 2, hypertension, anemia, history of CVA, history of right below-knee amputation who presented to the hospital secondary to hematemesis. Patient is currently intubated and sedated. The patient's history is mostly obtained from patient's who is present at bedside and from ED provider. The patient was noted to have black colored vomit at home which started yesterday. She has a history of peptic ulcer disease. She also has a PEG tube placed around two weeks ago. Peg tube was placed in [facility]. Per patient is able to swallow better now. denied any fever, chills, shortness for breath, chest pain. History is fairly limited at this time as patient is not able to participate in conversation. Labs were Notable for white count of 9.1, hemoglobin was 9.1, MCV was 86.7, platelet count was 456 K, sodium was 138, potassium was 3.1, bicarb was , creatinine was 1.7, glucose was 234, alk-phos was 153, total protein was 5.0, albumin was 0.9, lipase was negative normal Underwent a CT abdomen pelvis which showed no acute process in the CT abdomen without IV contrast. Patient was noted to have cystic structure in the right adrenal region measuring 5.9 x 3.9 cm. The patient also had fecal impaction noted. In the ED patient had episode of hematemesis and she was intubated for airway protection by ED provider. 01/23/2025: The patient is examined at the bedside. She was sedated and not responsive during my visit. GI performed EGD in the morning and they have observed no active bleeding. Nurse notified an unstageable wound on sacrum for which Wound consult is placed today. We will be manage as per critical Care recommendations. 01/24/2025: The patient is examined at the bedside. She was sedated and not responsive during my visit. Her arms are swollen. Her vitals are normal except for blood pressure is 97/51. Her labs are in the normal range except for Hb is 6.6, chloride is 113, BUN is 39, creatinine is 2.4, iron is 28, TIBC is 44, % saturation is 63.6, TSH is 7.62. Her urine culture grew 10,000-50,000 CFU. Identification and susceptibility are in process. Blood culture show no growth after 48 hours. Renal ultrasound show renal parenchymal disease. As her hemoglobin is low she received a blood transfusion. After the transfusion her hemoglobin is 7.1. We ordered a bilateral upper limb doppler which showed evidence of DVT. Gastroenterology was consulted to give recommendations on starting anticoagulation. GI recommended high dose Protonix drip for 48 hours and carafate 1gm PO QID, after 48 hours start heparin drip. IR was called to ask about the option of placing an SVC filter, and they recommended mechanical thrombectomy. The patient is not a good candidate for an SVC filter. A urinalysis, urine electrolytes, urine protein were ordered today. Urinalysis showed turbid urine, protein >300, ketones 5, moderate occult blood, moderate leukocyte esterase, RBC 6 to 10, WBC is TNTC, protein 410.9, sodium is 43, potassium is 36, chloride is 40. 01/25/2025: The patient is examined at the bedside. She was sedated and not responsive during my visit. Her arms are swollen. Her vitals are normal. Her labs are in the normal range except for Hb is 5.9, WBC is 11.2, Cl is 112, potassium is 3.2, CO2 is 19, BUN is 40 creatinine is 2.6. As her hemoglobin is low we gave a t ransfusion and the repeat Hb is 7.4. Gastroenterology will do EGD and colonoscopy tomorrow morning. Hematology is consulted and they recommended same management. Wound care recommended to cleanse with normal saline, pat dry, apply medihoney, cover with allevyn, change daily and prnKeep wounds clean and dry , Offloading/reposition q 2 hours. Bleeding scan showed no evidence of gastrointestinal hemorrhage. 01/26/2025: The patient is examined at the bedside. She was sedated and not responsive during my visit. Her arms are swollen. Her vitals are normal except for blood pressure which is 96/45. Her labs are in the normal range except for Hb is 8.7, K is 2.8, Cl is 112, CO2 is 19, BUN is 37, creatinine is 2.5, Albumin is 1.1. She is scheduled for an EGD and colonoscopy today. We replaced the potassium and the repeat potassium levels are 2.8 and 3.1. 01/27/2025: Patient is examined at the bedside. She was sedated and not responsive during my visit. Her arms are swollen. Her vitals are normal except for blood pressure which is 94/49. Her labs are in the normal range except for hemoglobin is 8.7, potassium is 2.9, chloride is 112, BUN is 33, creatinine is 2.5, albumin is 1, CRP is 223.1. Urine culture showed ESBL which is sensitive to Zosyn, meropenem and levofloxacin. She underwent endoscopy and colonoscopy yesterday which showed no evidence of bleeding. Gastroenterology recommended to follow within 1 week after discharge. Chest x-ray showed minimal pulmonary congestion. The nurse told us that she will try waking up the patient, extubate her and try spontaneous breathing trial. 01/28/2025: Patient is seen and examined at the bedside. She was sedated and not responsive during my visit. Her vital signs are in the normal range except for blood pressure is 97/55. Labs are in the normal range except for hemoglobin is 8.3, WBCs 12.9, potassium is 3.2, chloride is 100, bicarb is 16, BUN is 33, creatinine is 2.5, glucose is 181, ALP is 154. Yesterday the nurse tried to extubate her but she could not extubate as she is not waking up and she can't not protect her airway. She is currently on heparin drip. Critical care stopped her Protonix drip as she is fluid overloaded and they started protonix 40 mg b.i.d. We will continue to follow recommendations from critical Care and Gastroenterology. 01/29/2025: Patient is seen and examined at the bedside. She was sedated and not responsive during my visit. Her vital signs are in the normal range except for blood pressure is 90/48. Labs are in the normal range except for hemoglobin 7.7, potassium 2.9, sodium 146, chloride 113, bicarbonate 20, BUN 33, creatinine 2.5. Chest x-ray showed that there is an infiltrate in the left lower lung with a left-sided pleural effusion. She is currently on heparin drip and Protonix 40 mg b.i.d. We will continue to follow recommendations from critical Care and Gastroenterology. 01/30/2025: She was evaluated at the bedside this morning. As per nurse she passed black tarry stool this morning. She is sedated and intubated at pain sitting tidal volume 400 mL/minute, FiO2 100%, peep 5 and RR 14. She is on pressor support with Levophed 0.05. The remarkable lab is for hemoglobin 8, ALP 321, albumin 0.8, creatinine 2.5, chloride 112, bicarbonate 20. She is continued on linezolid, Zosyn, levothyroxine, levetiracetam, Protonix, Levophed. Heparin drip held for temporarily because of supratherapeutic APTT. We will continue to follow recommendations from critical Care and Gastroenterology. 01/31/2025: She was seen and evaluated at the bedside this morning. As per nurse she passed greenish colored stool this morning. She is off sedation medicine but not responding to stimuli. CT brain has been ordered for further evaluation. She continues to remain intubated at tidal volume 400 mL/minute, FiO2 30%, peep 5 and RR 14. She is continued on linezolid, and Zosyn. Cr and BUN this morning have been 2.8 and 31 respectively. Urine output in past 24 hours have been 0. 03ml/kg/hr (75ml). We have ordered ammonia levels this morning. We will continue to follow recommendations from critical Care and Gastroenterology. 02/01/2025: Patient was seen and evaluated at bedside. Her was present besides her. She continues to be unresponsive with sluggish movement of eyes. She is off sedation and vasopressor support. Her CT scan done yesterday showed Ill-defined hypodensity with loss of rodriguez-white matter interface in the right frontal and high parietal lobes concerning for possible infarct. She will further undergo MRI and EEG. Neurology is on the board. Her ammonia levels were elevated (48) for which lactulose was added today. Due to hyperglycemia, sliding scale insulin was also adjusted. 02/02/2025: Patient was seen and evaluated at bedside. She was accompanied by her . Her daughter was on the phone and expressed concerns about the patient. We went over the progress so far and explained patient's condition to the family members. As per , patient did move her arms and open her eyes at night. Her ammonia has jumped up to 106 for which lactulose ND has been added. Sliding scale insulin was adjusted and Lantus was added because of consistent hyperglycemia. Her lactic acid is elevated at 5 and repeat values showed 5.8. Bicarb deficit was also present for which sodium bicarbonate has been added to the patient's medication regimen. Creatinine continues to be elevated by 3.1 and BUN 35. Alkaline phosphatase is also elevated 779. Patient's urine output in the past 24 hours is 150 mL. 02/03/2025: Patient was seen and evaluated at bedside this morning. Her was besides her with whom we discussed patient's current condition. Patient's condition has deteriorated as compared to yesterday with Hb dropping below to 6.8 and Lactic acid rising to 9.2. So far, sodium bicarbonate hasn't improved metabolic acidosis. She remains intubated and on CPAP, undergoing SBT. During my time of evaluation, patient was unresponsive, even to sternal rub. Her Urine output in the past 24 hours has been 200ml. We will follow up with nephrology as well as critical care recommendations regarding patient's condition. 02/04/2025: Patient was seen and examined at bedside. She continues to be intubated and ventilated in [facility]. FiO2 30, VT 400, peep 6, respiratory rate 20. Patient is still maintained on dena 0.3. Her hemoglobin dropped again today to 6.7 from 7.7 after blood transfusion. She has received another PRBC today. Her platelet count also dropped to 74. Fibrinogen, D-dimers, haptoglobin, Sera direct and pathology smear review have been ordered in order to further evaluate repeat drop in blood counts. Lactic acid continues to be elevated 9.7 with patient in intractable metabolic acidosis. Ammonia is again elevated 204. Patient was accompanied by her with whom we discussed the patient's condition and also Nephrology not recommending hemodialysis at the moment. Her urine output in the past 24 hours has been 350. Respiratory cultures are showing preliminary 2+ GRAM NEGATIVE RODS. Patient is currently on Merrem and linezolid. REVIEW OF SYSTEMS Unable to obtain as patient is sedated PHYSICAL EXAM GENERAL APPEARANCE: She is currently intubated and unresponsive this morning. On CPAP trial. NEUROLOGICAL: Unable to obtain. HEENT: Face is symmetric. Other examination couldn't be done. NECK: Supple. No submental, submandibular, pre-/postauricular, occipital or supraclavicular lymphadenopathy. CHEST: Normal chest expansion. LUNGS: Absence of any rales, rhonchi or any wheezing. CARDIOVASCULAR: Regular. S1 and S2 normal. No appreciable rubs, murmurs or gallops. ABDOMEN: Soft, nontender, and nondistended. There is no rebound, voluntary guarding, or rigidity. Patient has a PEG tube in place : Deferred. EXTREMITIES: Below-knee amputation of the right lower extremity SKIN: No skin breakdown. Vital Signs (last 8hr) Date Time Temp Pulse Resp B/P (MAP) Pulse Ox O2 Delivery O2 Flow Rate FiO2 02/04/25 13:15 79 30 02/04/25 13:00 97 32 157/75 (102) 100 30 02/04/25 12:45 87 23 123/63 (83) 100 30 02/04/25 12:30 94 24 131/67 (88) 100 30 02/04/25 12:15 90 24 126/66 (86) 100 30 02/04/25 12:00 30 02/04/25 12:00 100 Ventilator+ 30 30 02/04/25 12:00 105 23 120/66 (84) 100 30 02/04/25 11:45 100 26 104/39 (60) 100 30 02/04/25 11:39 79 30 02/04/25 11:30 89 27 116/59 (78) 100 30 02/04/25 11:15 98 29 119/60 (79) 100 30 02/04/25 11:00 101 23 112/59 (76) 30 02/04/25 10:45 117 27 120/66 (84) 98 30 02/04/25 10:30 103 30 135/64 (87) 95 30 02/04/25 10:15 102 30 123/71 (88) 98 30 02/04/25 10:00 100 25 143/64 (90) 99 30 02/04/25 09:45 96 24 127/64 (85) 100 30 02/04/25 09:30 91 27 133/68 (89) 100 30 02/04/25 09:15 94 24 123/60 (81) 100 30 02/04/25 09:00 143 24 120/63 (82) 100 30 02/04/25 09:00 78 30 02/04/25 08:45 101 24 119/63 (81) 100 30 02/04/25 08:25 93 24 123/65 (84) 100 30 02/04/25 08:15 96 24 119/62 (81) 100 30 02/04/25 08:00 30 02/04/25 08:00 97 26 127/67 (87) 100 30 02/04/25 08:00 100 Ventilator+ 30 30 02/04/25 07:45 94 24 116/57 (76) 100 30 02/04/25 07:30 95 24 122/61 (81) 100 30 02/04/25 07:15 132 25 124/62 (82) 100 30 02/04/25 07:00 97 25 113/61 (78) 99 30 02/04/25 06:55 95 24 118/61 (80) 100 30 LABS: Laboratory: Test 02/04/25 12:19 02/04/25 04:49 02/04/25 02:59 02/03/25 03:32 Range/Units Whole Blood Glucose 156 H 70-110 MG/DL White Blood Count 14.0 H 4.8-10.8 K/uL Red Blood Count 2.21 L 4.00-5.50 MIL/uL Hemoglobin 6.7 *L 12.0-16.0 g/dL Hematocrit 19.8 *L 36-48 % Mean Corpuscular Volume 89.6 79-99 fL Mean Corpuscular Hemoglobin 30.3 27.0-33.0 pg Mean Corpuscular Hemoglobin Concent 33.8 32.0-36.0 g/dL Red Cell Distribution Width 18.9 H 11.0-15.5 % Platelet Count 74 L 130-400 K/uL Mean Platelet Volume 12.7 H 7.5-10.5 fL Immature Granulocyte % (Auto) 1.6 H 0-1 % Neutrophils (%) (Auto) 82.5 H 40.0-77.0 % Lymphocytes (%) (Auto) 11.2 L 21.0-51.0 % Monocytes (%) (Auto) 3.3 3.0-13.0 % Eosinophils (%) (Auto) 1.1 0.0-8.0 % Basophils (%) (Auto) 0.3 0.0-5.0 % Neutrophils # (Auto) 11.5 H 1.8-7.7 K/uL Lymphocytes # (Auto) 1.6 1.0-4.8 K/uL Monocytes # (Auto) 0.5 0.1-1.0 K/uL Eosinophils # (Auto) 0.16 0.00-0.70 K/uL Basophils # (Auto) 0.04 0.00-0.20 K/uL Absolute Immature Granulocyte (auto 0.23 0-1 K/uL Nucleated Red Blood Cells 2.0 H 0.0-0.19 % Prothrombin Time 13.5 H 9.6-11.6 SEC Prothromb Time International Ratio 1.31 H 0.85-1.15 Activated Partial Thromboplast Time 53.7 H 26.3-35.5 SEC Sodium Level 150 H 136-145 mmol/L Potassium Level 3.4 L 3.5-5.1 mmol/L Chloride Level 108 101-111 mmol/L Carbon Dioxide Level 15 L 21-32 mmol/L Blood Urea Nitrogen 43 H 7-18 mg/dL Creatinine 3.4 H 0.5-1.0 mg/dL Glomerular Filtration Rate Calc 14 >90 mL/min Random Glucose 151 H 70-105 mg/dL Lactic Acid Level 9.7 H 0.8-2.5 mmol/L Total Calcium 8.8 8.5-10.1 mg/dL Phosphorus Level 3.4 2.5-4.9 mg/dL Magnesium Level 2.00 1.80-2.40 mg/dL Total Bilirubin 1.5 H 0.2-1.0 mg/dL Aspartate Amino Transf (AST/SGOT) 42 H 10-37 U/L Alanine Aminotransferase (ALT/SGPT) 15 12-78 U/L Alkaline Phosphatase 1012 *H 50-136 U/L Ammonia 204 *H 11-32 umol/L Total Protein 4.8 L 6.0-8.3 g/dL Albumin 1.6 L 3.5-5.0 g/dL Procalcitonin 1.95 H 0.05-0.5 ng/mL Blood Gas Specimen Type Arterial Arterial Blood pH 7.454 H 7.350-7.450 Arterial Blood Partial Pressure CO2 21 L 32-45 mmHg Arterial Blood Partial Pressure O2 118.8 H 83.0-108.0 mmHg Arterial Blood HCO3 14.3 L 21.0-28.0 mmol/L Arterial Blood Oxygen Saturation 97.8 94.0-98.0 % Arterial Blood Base Excess -8.5 L -2.0-3.0 mmol/L Hemoglobin (Blood Gas) 7.9 L 12.0-16.0 g/dL Sodium (Blood Gas) 144 136-145 MMOL/L Bedside Potassium (Blood Gas) 3.6 3.4-4.5 MMOL/L Bedside Chloride (Blood Gas) 109 H 98-107 MMOL/L Bedside Glucose (Blood Gas) 152 H 65-95 MG/DL Bedside Ionized Calcium (Blood Gas) 1.19 1.15-1.33 MMOL/L Bedside Lactic Acid (Blood Gas) 9.47 *H 0.36-0.75 MMOL/L Blood Gas Temperature 37.0 35.5-37.0 CELSIUS Blood Gas Respiration Rate 20.0 min. Blood Gas Vent Mode AC VC ROOM AIR FiO2 30.0 % Blood Gas Tidal Volume 400 ml Blood Gas PEEP 6 cm H2O Blood Gas Specimen Comment DARNELL RN, LR C-Reactive Protein, Quantitative 198.20 H 0.5-3.0 mg/L Test 02/02/25 23:15 Range/Units Bedside Glucose Comment Protocol Initiated Current Medications Medications (Trade) Dose Ordered Sig/Arik Route PRN Reason Start Time Stop Time Status Last Admin Dose Admin Albumin Human 50 ml @ 0 mls/hr Q8H6 IV 01/24/25 14:00 01/24/25 22:00 DC 01/24/25 20:45 1,200 MLS/HR Artificial Tears (Artificial Tears) 1 DROP OR AD Q8H OU 01/23/25 19:30 02/22/25 19:29 02/04/25 13:00 1 DROP Bumetanide (Bumex 1mg Vial) 1 mg ONCE PRN IVP AFTER TRANSFUSION 01/24/25 08:00 01/24/25 09:23 DC Bumetanide (Bumex 1mg Vial) 2 mg ONCE PRN IVP AFTER TRANSFUSION 01/24/25 14:00 01/24/25 14:00 DC 01/24/25 13:28 2 MG Cefepime HCl (MAXipime 2 gm vial) 2 gm Q24H IVPB 01/23/25 12:00 01/26/25 12:05 DC 01/26/25 11:38 2 GM Ceftriaxone Sodium (ROCEphine 1G INJ) 1 gm Q24H IVPB 01/22/25 12:00 01/22/25 16:25 DC 01/22/25 14:18 1 GM Chlorhexidine Gluconate (Peridex) 15 ml TID MM 01/23/25 21:00 02/06/25 20:59 02/04/25 10:38 15 ML Dexmedetomidine/ Sodium Chloride (PRECEdex 400MCG/ 100ML-NS) 400 mcg PROTOCOL IV 01/27/25 15:30 02/26/25 15:29 Dextrose (D50w) 50 ml AD PRN IV HYPOGLYCEMIA PROTOCOL 01/22/25 15:30 02/21/25 15:29 02/03/25 05:24 50 ML Epoetin Carlton-epbx (Retacrit) 10,000 unit QWEEK SQ 01/31/25 15:00 03/02/25 14:59 01/31/25 15:16 10,000 UNIT Fentanyl Citrate 100 ml @ 2.5 mls/hr PROTOCOL IV 01/22/25 12:00 01/22/25 11:55 DC Fentanyl Citrate 100 ml @ 2.5 mls/hr PROTOCOL IV 01/22/25 12:00 01/27/25 15:35 DC 01/27/25 05:34 2.5 MLS/HR Furosemide 100 mg/ Sodium Chloride 100 ml @ 0 mls/hr PROTOCOL IV 02/04/25 13:00 03/06/25 12:59 02/04/25 13:05 10 MLS/HR Glucagon (Glucagon 1mg Kit) 1 mg AD PRN IM HYPOGLYCEMIA PROTOCOL 01/22/25 15:30 02/21/25 15:29 Heparin Sodium (Porcine) (HEParin 5,000 UNIT VIAL) *calculation based on ACTUAL B... AD PRN IV HEPARIN PROTOCOL 01/27/25 16:30 02/03/25 09:31 DC Heparin Sodium/ Dextrose 250 ml @ 0 mls/hr Q6H IV 01/27/25 16:30 02/03/25 09:28 DC 01/31/25 17:28 0 MLS/HR Insulin Glargine (LANtus 100 UNITS/ML 10 ML VIAL) 10 units BID@0730,2100 SQ 02/01/25 21:00 02/02/25 09:20 DC 02/02/25 08:08 10 UNITS Insulin Glargine (LANtus 100 UNITS/ML 10 ML VIAL) 20 units BID@0730,2100 SQ 02/02/25 21:00 02/03/25 09:50 DC Insulin Human Regular (humuLIN R 100 UNIT/ML 3ML) INSULIN SLIDING SCAL... ACHS SQ 01/22/25 21:00 01/25/25 20:51 DC 01/25/25 16:29 3 UNIT Insulin Human Regular (humuLIN R 100 UNIT/ML 3ML) INSULIN SLIDING SCAL... Q6H6 SQ 01/26/25 10:00 02/01/25 12:57 DC 02/01/25 11:59 3 UNIT Insulin Human Regular (humuLIN R 100 UNIT/ML 3ML) INSULIN SLIDING SCAL... Q6H6 SQ 02/01/25 18:00 03/03/25 17:59 02/02/25 11:45 6 UNIT Lactulose (Constulose 20gm/ 30ml Udcup) 20 gm BID PRN PO CONSTIPATION 02/04/25 12:30 03/06/25 12:29 Leptospermum Honey (Medihoney) 1 APPLICATION DAILY TP 01/26/25 09:00 02/25/25 08:59 02/04/25 10:37 1 APPL Levetiracetam (kepPRA 500 MG TABLET) 500 mg BID PO 01/22/25 21:00 01/22/25 22:13 DC Levetiracetam 500 mg/Sodium Chloride 100 ml @ 400 mls/hr Q12H9 IV 01/22/25 22:00 02/21/25 21:59 02/04/25 10:26 400 MLS/HR Levothyroxine Sodium (SYNTHroid VIAL 100MCG) 100 mcg SYN IV 01/23/25 06:30 02/22/25 06:29 02/04/25 06:08 100 MCG Linezolid 300 ml @ 150 mls/hr Q12H IV 01/24/25 08:00 02/01/25 12:55 DC 02/01/25 08:10 150 MLS/HR Linezolid 300 ml @ 150 mls/hr Q12H IV 02/02/25 09:30 02/04/25 12:16 DC 02/04/25 10:21 150 MLS/HR Magnesium Sulfate 50 ml @ 0 mls/hr PROTOCOL PRN IV Hypomagnesemia 01/22/25 15:30 02/21/25 15:29 01/29/25 08:35 25 MLS/HR Meropenem (Merrem 1gm) 1 gm Q12H IVPB 02/02/25 09:30 02/02/25 11:06 DC Meropenem (Merrem 1gm) 1 gm Q12H IVPB 02/02/25 13:30 02/12/25 13:29 02/04/25 01:33 1 GM Metolazone (zarOXOlyn) 5 mg DAILY PO 02/05/25 09:00 03/07/25 08:59 Metronidazole/ Sodium Chloride 100 ml @ 100 mls/hr Q8H6 IVPB 01/22/25 22:00 01/26/25 12:05 DC 01/26/25 06:13 100 MLS/HR Midazolam HCl 50 ml @ 0 mls/hr PROTOCOL IV 01/22/25 12:00 01/27/25 15:35 DC 01/27/25 09:10 5 MLS/HR Norepinephrine 250 ml @ 0 mls/hr PROTOCOL IV 01/22/25 10:00 01/23/25 09:52 DC 01/22/25 14:24 60 MLS/HR Norepinephrine Bitartrate (Norepineph 16 Mg/250ml NS Premix) per protocol PROTOCOL IV 01/23/25 10:00 02/22/25 09:59 02/01/25 20:44 16 MG Nystatin (NystOP 15 GM POWDER) Left gluteal fold BID TP 02/03/25 21:00 03/05/25 20:59 02/04/25 10:37 1 APPL Octreotide Acetate 1250 mcg/ Sodium Chloride 250 ml @ 0 mls/hr PROTOCOL IV 01/22/25 12:30 01/22/25 12:17 DC Octreotide Acetate 1250 mcg/ Sodium Chloride 250 ml @ 0 mls/hr PROTOCOL IV 01/22/25 12:30 01/24/25 09:23 DC 01/22/25 12:41 5 MLS/HR Pantoprazole Sodium (PROTonix 40MG INJ) 40 mg BID IVP 01/24/25 21:00 01/24/25 15:02 DC Pantoprazole Sodium (PROTonix 40MG INJ) 40 mg BID IVP 01/28/25 21:00 02/27/25 20:59 02/04/25 10:31 40 MG Pantoprazole Sodium 80 mg/ Sodium Chloride 100 ml @ 10 mls/hr Q10H IV 01/22/25 09:00 01/24/25 09:23 DC 01/24/25 09:17 10 MLS/HR Pantoprazole Sodium 80 mg/ Sodium Chloride 100 ml @ 10 mls/hr Q10H IV 01/24/25 15:00 01/28/25 13:39 DC 01/28/25 00:06 10 MLS/HR Pharmacy Profile Note (Pharmacy Communication) 1 each ONCE MISC 01/22/25 12:00 01/22/25 11:53 DC Pharmacy Profile Note (Pharmacy Communication) 1 each ONCE MISC 01/22/25 12:00 01/22/25 11:53 DC Pharmacy Profile Note (Pharmacy Communication) 1 each ONCE MISC 01/23/25 13:00 01/23/25 13:09 DC Pharmacy Profile Note (Pharmacy Communication) 1 each ONCE MISC 01/24/25 08:00 01/24/25 07:51 DC Pharmacy Profile Note (Pharmacy Communication) 1 each ONCE MISC 02/02/25 09:30 02/02/25 09:09 DC Phenylephrine HCl 100 mg/Sodium Chloride 250 ml @ 0 mls/hr AD PRN IV TITRATE 01/22/25 17:00 02/02/25 17:22 DC 01/23/25 09:30 0 MLS/HR Phenylephrine HCl 100 mg/Sodium Chloride 250 ml @ 0 mls/hr PROTOCOL IV 02/02/25 17:30 03/04/25 17:29 02/03/25 22:02 0.5 MLS/HR Piperacillin Sod/ Tazobactam Sod (Zosyn 3.375gm+NS 50ml) 3.375 gm Q8H IV 01/26/25 12:30 02/01/25 12:55 DC 02/01/25 12:04 3.375 GM Potassium Phosphate 250 ml @ 42 mls/hr PROTOCOL PRN IV PROTOCOL 02/01/25 15:30 03/03/25 15:29 02/01/25 17:21 42 MLS/HR Potassium Chloride 100 ml @ 50 mls/hr AD PRN IV POTASSIUM PROTOCOL 01/22/25 15:30 01/24/25 07:50 DC Potassium Chloride 100 ml @ 100 mls/hr AD PRN IV POTASSIUM PROTOCOL 01/22/25 15:30 02/21/25 15:29 02/01/25 06:18 100 MLS/HR Potassium Chloride (K-Dur/Klor-Con 20meq) 20 meq AD PRN PO POTASSIUM PROTOCOL 01/22/25 15:30 02/21/25 15:29 01/26/25 06:19 20 MEQ Potassium Chloride (KCl 10% Elixir 20meq/15ml) 20 meq AD PRN PO POTASSIUM PROTOCOL 01/22/25 15:30 02/21/25 15:29 02/02/25 03:29 20 MEQ Propofol (DIPRivan 1000MG/ 100ML) 1,000 mg PROTOCOL PRN IV SEDATION 01/22/25 12:00 01/22/25 11:55 DC Sodium Bicarbonate 150 meq/Dextrose 1,150 ml @ 100 mls/hr [id number] IVP 02/02/25 06:00 02/02/25 09:04 DC 02/02/25 05:45 100 MLS/HR Sodium Bicarbonate (Sodium Bicarbonate) 650 mg BID PO 01/24/25 21:00 02/23/25 20:59 02/04/25 10:31 650 MG Sodium Bicarbonate (Sodium Bicarbonate) 650 mg BID PO 02/01/25 21:00 02/01/25 13:00 DC Sodium Bicarbonate (Sodium Bicarb 50meq 50ml Vial) 50 meq Q6H IV 02/02/25 15:00 02/04/25 14:59 02/04/25 10:36 50 MEQ Sodium Chloride 1,000 ml @ 150 mls/hr Q6H40M IV 01/22/25 12:00 01/23/25 10:56 DC 01/23/25 02:45 150 MLS/HR Sucralfate (Carafate) 1 gm BID PO 01/23/25 21:00 01/23/25 11:41 DC Sucralfate (Carafate) 1 gm BID PO 02/02/25 21:00 02/23/25 16:59 02/04/25 10:31 1 GM Sucralfate (Carafate) 1 gm QID PO 01/24/25 17:00 02/02/25 18:53 DC 02/02/25 17:25 1 GM Sucralfate (Carafate) 1 gm TID PO 01/23/25 14:00 01/24/25 15:02 DC 01/24/25 13:28 1 GM Thiamine HCl 100 mg/Sodium Chloride 50 ml @ 100 mls/hr Q24H IV 01/23/25 14:00 01/25/25 14:29 DC 01/25/25 13:53 100 MLS/HR Vancomycin HCl (Vancomycin 750mg) 750 mg Q24H IVPB 01/23/25 17:00 01/23/25 10:56 DC Vancomycin HCl (Vancomycin Protocol) 1 each AD IV 01/22/25 15:00 01/23/25 10:56 DC Vasopressin 40 units/Sodium Chloride 40 ml @ 0 mls/hr PROTOCOL IV 01/25/25 09:30 02/24/25 09:29 Wound Care/ Dressing Products (Venelex Ointment) BID TP 01/25/25 21:00 01/25/25 15:58 DC Wound Care/ Dressing Products (Venelex Ointment) 1 APPL BID TP 02/03/25 21:00 03/05/25 20:59 02/04/25 10:37 1 GM DIAGNOSTICS / RADIOLOGY: PATIENT: JUSTIN KLINE MR#: [id number] : 1955 SEX: F AGE: 70 LOCATION: 2CH ORDER 3 STATUS: ADM IN REPORT#: [id number] SERVICE 1 REASON: pp ORDERING PHYSICIAN: RERE BLAIR PROCEDURE: CXR1VW - CHEST 1VW EXAM: CR Chest, 1 View. CLINICAL HISTORY: pp COMPARISON: 01/30 20:49 EDT CR - CHEST 1VW FINDINGS: Essentially stable since prior exam. ETT tip 4 cm above arminda. Left PICC tip in SVC. stable left perihilar and left basilar airspace disease and small left pleural effusion. Right lung remains relatively clear. Negative for pneumothorax. Heart size, pulmonary vascularity and mediastinum within normal limits. PLEURAL SPACES: No evidence of pleural effusion or pneumothorax. MEDIASTINUM: Cardiac size and mediastinal contours within normal limits. BONES: No aggressive appearing osseous lesion seen. IMPRESSION: Stable chest. Support lines and tubes appear appropriate position and stable. Stable left perihilar and left basilar airspace disease and small left pleural effusion. Right lung remains clear. /[place] DICTATED BY: RADHA BECERRA Jr., MD DATE: 01/31/251312 ELECTRONICALLY SIGNED BY: RADHA BECERRA Jr., MD DATE: 01/31/251312 ATIENT: JUSTIN KLINE MR#: [id number] : 1955 SEX: F AGE: 70 LOCATION: 2CH ORDER 1510 STATUS: ADM IN REPORT#: [id number] SERVICE 07 REASON: HGB drop, assess for possible GI bleed ORDERING PHYSICIAN: KIRSTEN KRUSE MD PROCEDURE: GIBLEED - NM GI BLOOD LOSS IMAG Examination NM radiolabeled red blood cell study History Gastrointestinal bleeding Technique After IV administration of Tc-99m labeled red autologous blood cells, anterior projection images of the abdomen and pelvis were obtained dynamically for one hour. Findings Following administration of radiolabeled red blood cells, there is normal activity seen in cardiovascular and genitourinary structures, the liver and spleen. There is no evidence for extravasation of radiolabeled red blood cells during the examination. IMPRESSION: No evidence of gastrointestinal hemorrhage during the course of examination acquisition. /[place] DICTATED BY: RADHA BECERRA Jr., MD DATE: 01/25/251457 ELECTRONICALLY SIGNED BY: RADHA BECERRA Jr., MD DATE: 01/25/251457 PATIENT: JUSTIN KLINE MR#: [id number] : 1955 SEX: F AGE: 70 LOCATION: 2CH ORDER 1 STATUS: ADM IN REPORT#: [id number] SERVICE 1 REASON: UNRESPONSIVE ORDERING PHYSICIAN: RERE BLAIR PROCEDURE: HEAD WO - CT HEAD/BRAIN W/O CONTRAST EXAM: CT Head Without IV contrast. CLINICAL HISTORY: UNRESPONSIVE TECHNIQUE: Axial computed tomography images of the head/brain without intravenous contrast. COMPARISON: None provided. FINDINGS: BRAIN: There is diffuse cerebral atrophy, evidenced by prominence of the cortical sulci and ventricular system, compatible with age-related changes. There is evidence of chronic small vessel ischemic change characterized by bilateral periventricular and deep white matter hypodensities. Ill-defined hypodensity with loss of rodriguez-white matter interface in the right frontal and high parietal lobes concerning for a possible infarct. No evidence of acute hemorrhage. No mass lesion. No midline shift or extra-axial collections. VENTRICLES: No hydrocephalus. ORBITS: The orbits are unremarkable. SINUSES AND MASTOIDS: Mucosal thickening in bilateral sphenoidal sinuses. The rest of the Paranasal sinuses and mastoid air cells are clear. BONES: No fracture. SOFT TISSUES: Unremarkable. IMPRESSION: 1. Ill-defined hypodensity with loss of rodriguez-white matter interface in the right frontal and high parietal lobes concerning for possible infarct. Consider MRI 2. No acute intracranial hemorrhage. /[place] DICTATED BY: SELIN BURNS MD DATE: 01/31/251730 ELECTRONICALLY SIGNED BY: SELIN BURNS MD DATE: 01/31/251730 PATIENT: JUSTIN KLINE MR#: [id number] : 1955 SEX: F AGE: 70 LOCATION: 2CH ORDER STATUS: ADM IN REPORT#: [id number] SERVICE 1332 REASON: UNRESPONSIVE ORDERING PHYSICIAN: RERE BLAIR PAC PROCEDURE: BRAIN WO - MR BRAIN WO CON EXAM: MR Brain with and without Intravenous Contrast. CLINICAL HISTORY: UNRESPONSIVE WHILE TRYING TO EXTUBATE TECHNIQUE: Multisequence, multiplanar magnetic resonance images acquired of the brain with and without intravenous contrast. CONTRAST: COMPARISON: None provided. FINDINGS: BRAIN: Ill-defined areas of hyperintensities in the subcortical white matter of the right frontal and parietal lobes without diffusion restriction. 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 Age-related cerebral and cerebellar atrophy. Diffuse T2-FLAIR hyperintensities along the periventricular white matter of bilateral fronto-parietal lobes are suggestive of chronic small vessel ischemia. No restricted diffusion to indicate acute infarction. No intracranial haemorrhage. No midline shift or extra-axial fluid collection. No cerebellar tonsillar ectopia. The central arterial and venous flow voids are patent. VENTRICLES: No hydrocephalus. ORBITS: The orbits are normal. Pseudophakic lens in the right orbit. SINUSES AND MASTOIDS: Fluid signal intensity in the bilateral sphenoid sinus. Fluid signal intensity in bilateral mastoid air cells is suggestive of mastoiditis. The rest of the sinuses are clear. BONES: No acute fracture or aggressively appearing osseous lesion. IMPRESSION: 1. 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 2. 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 3. Bilateral sphenoid sinusitis and mastoiditis. /[place] DICTATED BY: SELIN BURNS MD DATE: 02/01/251609 ELECTRONICALLY SIGNED BY: SELIN BURNS MD DATE: 02/01/251609 PATIENT: JUSTIN KLINE MR#: [id number] : 1955 SEX: F AGE: 70 LOCATION: 2C ORDER 230 STATUS: ADM IN REPORT#: [id number] SERVICE 0600 REASON: intubated ORDERING PHYSICIAN: KARL RODRIGUEZ PROCEDURE: CXR1VW - CHEST 1VW CHEST 1VW REASON: intubated COMPARISON: Prior chest radiograph from 02/03/2025 is available. FINDINGS: Single view of the chest was obtained. Lungs demonstrate left-sided groundglass appearance suggesting of left-sided pleural effusion. The right lung appears to be clear.. Heart size is normal. The endotracheal tube and left-sided PICC catheter to be in satisfactory position.. There is no pulmonary vascular congestion. Mediastinum and bony thorax appear unremarkable. IMPRESSION: 1. The left lung has groundglass opacity suggesting of left-sided pleural effusion would recommend ultrasound of the chest for further evaluation 2. Support lines in satisfactory position 3. No evidence of airspace consolidation or pulmonary venous congestion. DICTATED BY: RENA MADDOX MD DATE: 02/04/251124 ELECTRONICALLY SIGNED BY: RENA MADDOX MD DATE: 02/04/251128 PATIENT: JUSTIN KLINE MR#: [id number] : 1955 SEX: F AGE: 70 LOCATION: 2CH ORDER 2300 STATUS: ADM IN REPORT#: [id number] SERVICE 0600 REASON: intubated ORDERING PHYSICIAN: KARL RODRIGUEZ AGACNP PROCEDURE: CXR1VW - CHEST 1VW EXAM: CR Chest, single view. CLINICAL HISTORY: ET. Intubated COMPARISON: Prior chest radiograph dated February 02, 2025. FINDINGS: The endotracheal tube is identified approximately 3.9 cm from the arminda. Mild cardiomegaly with bilateral pulmonary congestion. Mild left-sided pleural effusion with adjacent lung atelectasis. Infiltrates in the right parahilar region and lower lobe. No evidence of pneumothorax. Atherosclerotic calcification of the aortic arch. No acute osseous abnormality. IMPRESSION: The endotracheal tube is identified approximately 3.9 cm from the arminda. Mild cardiomegaly with bilateral pulmonary congestion. Mild left-sided pleural effusion with adjacent lung atelectasis. Infiltrates in the right parahilar region and lower lobe. No evidence of pneumothorax. Compared to the prior study, there is interval development of infiltrates in the right lower lobe. /[place] DICTATED BY: RADHA BECERRA Jr., MD DATE: 02/03/25808 ELECTRONICALLY SIGNED BY: RADHA BECERRA Jr., MD DATE: 02/03/25808 PATIENT: JUSTIN KLINE MR#: [id number] : 1955 SEX: F AGE: 70 LOCATION: 2CH ORDER STATUS: ADM IN REPORT#: [id number] SERVICE 0915 REASON: suspected cardiogenic shock [facility]IC[facility]EDURE: ECHO CMP - ECHO 2-D COMPLETE APPROVED REPORT EXAM: Two-dimensional and M-mode echocardiogram with Doppler and color Doppler. INDICATION ICD: Suspected Cardiogenic Shock R57.0 2D Dimensions RVDd 3.1 cm LVEF(%) 71.3 (>50%) LVED Vol(simp.) 33.0 mL IVSd 1.4 (0.7-1.1cm) FS(%) 39 % LVES Vol(simp.) 10.0 mL LVDd 2.9 (3.8-5.6cm) LA (2D) 2.7 (1.6-4.0cm) LVEF(%, simp.) 69 % PWd 1.4 (0.7-1.1cm) Ao Root(2D) 3.0 (2.0-3.7cm) LA ESV INDEX (BP) 21.64 mL/m2 IVSs 1.3 cm LVOT diam 2.0 (1.8-2.4cm) LVDs 1.7 (2.5-4.0cm) PWs 1.6 cm Deformation Strain Apical 4 -16.3 % Apical 2 -13.5 % Apical 3 -15.0 % Global Strain -14.9 % M-Mode Dimensions EPSS 0.5 cm LA (MM) 2.8 (1.6-4.0cm) Ao Root(MM) 3.2 (2.0-3.7cm) Aortic Valve AoV Vmax 1.8 m/s Ao Peak GR 12.6 mmHg LVOT Vmax 1.5 m/s AoV VTI 0.3 m Ao Mean GR 7.4 mmHg LVOT VTI 0.24 m YASMEEN (VMAX) 2.72 cm2 YASMEEN (VTI) 2.9 cm2 Mitral Valve MV E Vmax 53.1 cm/s DECEL Time 76 ms MV A Vmax 87.7 cm/s P 1/2 T 20 ms E/A ratio 0.6 MVA (PHT) 11.0 cm2 TDI E/E' Medial 9.7 E/E' Lateral 8.2 Medial E' Peak V 5.48 cm/s Lateral E' Peak V 6.50 cm/s Pulmonary Valve PV Vmax 1.5 m/s PV VTI 0.22 m PV Mean GR 5.1 mmHg PV Peak GR 8.9 mmHg Tricuspid Valve TR Vmax 2.8 m/s RAP (EST) 3 mmHg RVSP 37.5 mmHg TR Peak GR 34.5 mmHg Left Ventricle Left ventricular cavity is small. GLS -15.0% There is normal LV segmental wall motion. Moderate concentric left ventricular hypertrophy. The LVEF is > 70%. Indeterminate diastolic function. Right Ventricle The right ventricle is normal size. The right ventricular systolic function is normal. Atria The left atrium size is normal. The right atrium is small in size. Aortic Valve The aortic valve is opens well. No aortic regurgitation is present. There is no aortic valvular stenosis. Mitral Valve The mitral valve is normal in structure. There is mild mitral valve regurgitation noted. Small mobile vegetation seen attached on the anterior mitral valve annulus measuring 1.2cm x 1.0cm There is no mitral valve stenosis. Tricuspid Valve The tricuspid valve is normal in structure. There is mild tricuspid valve regurgitation noted. Pulmonic Valve The pulmonary valve is normal in structure. There is no pulmonic valvular regurgitation. Great Vessels The aortic root is normal in size. The IVC is small in size and collapses >50% with inspiration. Pericardium There is no pericardial effusion. Other Information Quality : Technically difficult study due to body habitus pt currently intubated Rhythm : Tachycardia Conclusion The LVEF is > 70%. Moderate concentric left ventricular hypertrophy. DICTATED BY: LISBET MTZ MD DATE: 02/02/25926 ELECTRONICALLY SIGNED BY: LISBET MTZ MD DATE: 02/02/252231 PATIENT: JUSTIN KLINE MR#: [id number] : 1955 SEX: F AGE: 70 LOCATION: 2CH ORDER 3 STATUS: ADM IN REPORT#: [id number] SERVICE 2 REASON: intubated and resp failure ORDERING PHYSICIAN: KARL RODRIGUEZ PROCEDURE: CXR1VW - CHEST 1VW EXAM: CR Chest, 2 View. CLINICAL HISTORY: intubated and resp failure COMPARISON: Yesterday FINDINGS: LUNGS: Endotracheal tube adequately positioned below arminda. Pulmonary vascular congestion. PLEURAL SPACES: Bilateral pleural effusions. MEDIASTINUM: Cardiomegaly. BONES: No acute osseous abnormality. IMPRESSION: 1. Endotracheal tube adequately positioned below arminda. 2. Pulmonary vascular congestion. 3. Bilateral pleural effusions. 4. Cardiomegaly. /[place] DICTATED BY: KIMBERLEE FABIAN MD DATE: 02/02/251102 ELECTRONICALLY SIGNED BY: KIMBERLEE FABIAN MD DATE: 02/02/251102 ASSESSMENT: Acute metabolic encephalopathy Hemorrhagic shock vs Septic Shock Small mobile vegetation seen attached on the anterior mitral valve annulus measuring 1.2cm x 1.0cm on 2 D echo 02/02/25 Rule out endocarditis-pending Blood cultures Oliguria - urine output 0.03 mL/kg per hour (01/31/25) Cerebrovascular accident-chronic infarct as per MRI brain Chronic infarct with hemosiderin staining in the left insular cortex. 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 Unstageable wound on sacrum Chronic infarct in the right frontal and parietal lobes. on MRI Brain 02/02/25 Acute on chronic anemia - rule out hemolysis Thrombocytopenia Hyperammonemia Lactic acidosis Intractable metabolic acidosis Mild Pulm HTN RVSP 37.5mmHg 2+ GRAM NEGATIVE RODS in Respiratory Culture - r/o Ventilator Associated Pneumonia Hypernatremia Multiple organ dysfunction syndrome Acute complicated cystitis - ESBL Acute hypoxic respiratory failure status post intubation for airway protection Hematemesis POA Peg tube placement Peptic ulcer disease Deep venous thrombosis of bilateral upper limbs Starvation ketoacidosis Hypokalemia Hypophosphatemia Unstageable wound on sacrum Fecal impaction Obesity BMI 36.6 Knee injury versus underlying CKD Diabetes mellitus type 2 with associated hyperglycemia Severe hypoalbuminemia Hypertension Debility Small pericardial Effusion Left-sided pleural effusion PLAN: Acute hypoxic respiratory failure status post intubation for airway protection - critical care is on board and we will follow critical care recommendations regarding ventilator and sedation protocol - The nurse tried to extubate her but she could not extubate as she is not waking up and she can't not protect her airway. - Patient is off sedation. Failed SBT trial on 02/03 - Currently intubated and ventilated on ACVC mode. FiO2 30, VT 400, peep 6, respiratory rate 20 Acute on chronic anemia, Thrombocytopenia - Patient's hemoglobin dropped to 6.8 yesterday for which she was transfused 1 PRBC. Following CBC showed 7.7 hemoglobin - Today her hemoglobin dropped to 6.7 again. She has been given another PRBC today. Keep hemoglobin above 7 and transfuse accordingly. - There is concern for hemolysis. Follow up with fibrinogen, haptoglobin, D- dimers, Sera direct and pathology smear review. - Her platelet count dropped to 74 today. Follow up with heparin induced platelet antibody test. - Follow up with morning CBC reports. Hemorrhagic shock versus Septic Shock - Patient is currently on dena 0.3. Keep map above 65. - Patient's hemoglobin dropped to 6.7 today. Transfuse PRBC and keep hemoglobin above 7. - Respiratory cultures are showing 2+ Gram-negative tessa. Procalcitonin is 1.95. Lactic acid 9.7. - Continue Merrem and linezolid. - Restrict fluid as patient is in volume overload with oliguria. - Small mobile vegetation were seen attached on the anterior mitral valve annulus measuring 1.2cm x 1.0cm on 2 D echo (02/02/25). Follow up with blood culture results. - we will follow critical Care recommendations. Oliguria - Patient's urine output on 01/31/2025 was 0.03 mL/kg per hour with Total urine output, 75 mL. - On 02/04/2025, total urine output is 350 mL - Patient was given Lasix yesterday as per Nephrology - He has been started on lasix and metolazone today. - Patient's creatinine and BUN from today are 3.4 and 43 respectively. - Monitor input and output as well as electrolytes. Avoid nephrotoxic drugs. - Evaluate patient for volume overload and fluid repletion. - Patient was given 500 mL lactated Ringer on 02/03. - Follow up with the Nephrology recommendations. No hemodialysis in plan currently as per nephrology Acute metabolic encephalopathy, Hyperammonemia, lactic acidosis, intractable metabolic acidosis - Her ammonia levels from 01/31/2025 were 48. Lactulose p.o. was added on 02/01. - On 02/02, ammonia levels were again elevated 106. Lactulose ND was added. - On 02/03, ammonia is 58. It sam to 204 on 02/04. Lactulose PO has been started today - Follow up with ammonia levels. - On 02/02, lactic acid is elevated by 5. Repeat values today showed 9.7 today. - Patient's anion gap is also elevated. ABG on 02/02 showed pH 7.44, pCO2 19, HC03 12.9 - Patient had bicarb deficit for which sodium bicarbonate was added to the medication regimen. Patient continues to have bicarb deficit. He is currently receiving 50 mEq sodium bicarb IV q.6 H. - Follow up with the BMP and lactic acid. - Follow up with the blood culture, urine culture, stool culture, respiratory culture to identify the suspected source of infection. Respiratory cultures show 2+ Gram-negative tessa preliminary today. Continue patient on Merrem and linezolid. - Maintain MAP above 65 to improve end organ tissue perfusion. Patient is currently on 0.3 dena. Hematemesis, peptic ulcer disease, POA - patient was admitted to ICU - in reference to hematemesis. H&H was trended q.4 hours. Type and screen was done. Plan is to keep hemoglobin above 7. On 01/25/2025 her hemoglobin was 5.9, we gave 1 PRBC. Repeat Hb is 7.4. - The patient was started on Protonix drip and octreotide drip. Critical care stopped her Protonix drip as she was fluid overloaded and they started protonix 40 mg b.i.d. - EGD done by Gastroenterology and have reported no active bleeding and clots in esophagus. - GI wanted to do another EGD, and colonoscopy showed no evidence of bleeding. - Bleeding scan showed no evidence of gastrointestinal hemorrhage. - gastroenterology recommended follow with them in 1 week after discharge. - Today her hemoglobin dropped to 6.7. Patient will receive PRBC. - We will continue to follow recommendations from critical Care and Gastroenterology. Cerebrovascular accident - chronic infarct - CT scan of the brain on 01/31/2025 showed 1. Ill-defined hypodensity with loss of rodriguez-white matter interface in the right frontal and high parietal lobes concerning for possible infarct. No acute intracranial hemorrhage. - MRI brain showed Chronic infarct in the right frontal and parietal lobes. 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 Bilateral sphenoid sinusitis and mastoiditis. - Follow up with the Neurology recommendations. Acute complicated cystitis - ESBL - Patient's urine culture came back positive for ESBL E coli - Patient was started on Zosyn q.8h and linezolid q.12h. - On 02/02, patient has been switched to Merrem and linezolid. DVT of bilateral upper limbs -US doppler of both upper limbs, results showed evidence of DVT. -Consulted gastroenterology for anticoagulation recommendations. They recommended to give high dose Protonix drip for 48 hours and carafate 1gm PO QID and after 48 hours start heparin drip. -Patient is not a candidate for SVC filter. -for supratherapeutic aPTT, heparin drip was held temporarily Starvation ketoacidosis Today her blood work show that sodium is 150, potassium is 3.4, chloride is 108, bicarbonate is 15. Her urinalysis from 01/24/2025 showed ketones in the urine. Unstageable wound on sacrum - we will request wound care -Wound care recommended to cleanse with normal saline, pat dry, apply medihoney, cover with allevyn, change daily and prnKeep wounds clean and dry , Off loading/reposition q 2 hours Hypokalemia Today her blood work showed that potassium is 3.4. She is being maintained on potassium replacement protocol Will repeat her labs tomorrow. Diabetes mellitus type 2 with associated hyperglycemia, Severe hypoalbuminemia, Hypertension, Debility, Small pericardial Effusion, Left-sided pleural effusion - echo showed no pericardial effusion, LVEF of 50-55% - continue insulin sliding scale. It was adjusted on 02/01 as per glucose levels. Lantus was also started as per critical care team. - On 02/03, patient's glucose dropped to 36 for which she was given D5. Lantus has been discontinued. - continue thiamine supplementation - monitor vitals Q8 - monitor a.m. labs - nephrology was consulted and they recommended to discontinue vancomycin, obtain urine analysis and complete renal ultrasound. Patient was started on meropenem and linezolid on 02/02 -Repeated urinalysis, urine electrolytes, urine protein on 01/24/2025. Urinalysis showed turbid urine, protein >300, ketones 5, moderate occult blood, moderate leukocyte esterase, RBC 6 to 10, WBC is TNTC, protein 410.9, sodium is 43, potassium is 36, chloride is 40. GI prophylaxis: Pantoprazole ATTESTATION BY PHYSICIAN I have seen and examined the patient. I reviewed the documentation, medical decision making, and treatment plan as noted by the resident provider above. I agree with the findings and plan of care. VON ZAMORA MD, MUHAMMAD H MD Feb 04, 2025 15:00
[2025-02-04 15:04] LABS: ERYTHROCYTE SEDIMENTATION RATE 33 MM/HR (0-30)
[2025-02-04 16:43] LABS: NUCLEATED RED BLOOD CELLS 1.7 % (0.0-0.19); PLATELET COUNT (AUTO) 65 K/uL (130-400); RED BLOOD CELL COUNT(AUTO) 2.94 MIL/uL (4.00-5.50); RED CELL DISTRIBUTION WIDTH 16.9 % (11.0-15.5); WHITE BLOOD COUNT (AUTO) 12.3 K/uL (4.8-10.8)
[2025-02-04] MEDS: SODIUM BICARBONATE 650 MG TAB PO SCH (20:21)
[2025-02-05] VITALS (111 sets, daily range): BP systolic 79–169; BP diastolic 40–96; PULSE 88–136; RESP 7–106; TEMP 97.7–101.3; O2SAT 100
[2025-02-05 01:15] LABS: IMMATURE GRANULOCYTE ABSOLUTE 0.12 K/uL (0-1); NUCLEATED RED BLOOD CELLS 1.8 % (0.0-0.19); PLATELET COUNT (AUTO) 62 K/uL (130-400); RED BLOOD CELL COUNT(AUTO) 2.98 MIL/uL (4.00-5.50); RED CELL DISTRIBUTION WIDTH 16.9 % (11.0-15.5); WHITE BLOOD COUNT (AUTO) 10.1 K/uL (4.8-10.8)
[2025-02-05 01:47] LABS: ASPARTATE AMINOTRANSFERASE 35.0 U/L (10-37); CREATININE 3.5 mg/dL (0.5-1.0); GLOMERULAR FILTR. RATE CALC 14.0 mL/min (>90); GLUCOSE,RANDOM 192.0 mg/dL (70-105); PHOSPHORUS 3.2 mg/dL (2.5-4.9); SODIUM SERUM 152.0 mmol/L (136-145); TOTAL PROTEIN, SERUM 4.6 g/dL (6.0-8.3); UREA NITROGEN, BLOOD 49.0 mg/dL (7-18)
[2025-02-05 04:12] LABS: ABG BASE EXCESS -6.6 mmol/L (-2.0-3.0); ABG HCO3 14.8 mmol/L (21.0-28.0); ABG OXYGEN SATURATION 97.0 % (94.0-98.0); ABG PCO2 19 mmHg (32-45); ABG PH 7.501 (7.350-7.450); CARBON MONOXIDE 0.3 % (0.5-1.5); DEVICE COMMENT LR RN JULIA; PO2, ARTERIAL BG 99.6 mmHg (83.0-108.0); TEMPERATURE, CELSIUS BG 37.0 CELSIUS (35.5-37.0); VENT MODE, BG ACVC (ROOM AIR)
--- NOTE | 2025-02-05 05:11 | HMCIMG ---
EXAM: CT Abdomen and Pelvis without IV contrast CLINICAL HISTORY: Bleeding. TECHNIQUE: Thin collimated axial CT images of the abdomen and pelvis were obtained, with sagittal and coronal reformatted images also submitted. A CT scan is done according to ALARA (As Low As Reasonably Achievable). CONTRAST: None. COMPARISON: CT abdomen and pelvis dated 01/22/2025. FINDINGS: Small pleural effusion on the left side. Multifocal infiltrates in the bilateral lung hassan, concerning multifocal pneumonia. Small pericardial effusion. Mild fatty liver. Cholelithiasis around the gallbladder neck with mildly hydropic gallbladder. Moderate diffuse pancreatic atrophy. No focal abnormality within the spleen, adrenals, or kidneys. The urinary bladder is empty with a Kamara's catheter in place. Presumed post hysterectomy status. The right ovary is not visualized, likely surgically absent. Unremarkable left ovary. Percutaneous gastrostomy tube is in place. Mild diffuse thickening in the small and large bowel loops, which could be secondary to inadequate distention or mild acute enterocolitis. A rectal tube is in place. The appendix is not visualized. No inflammatory changes around the cecum. Calcific atherosclerotic disease in the abdominal aorta and its branches. No pathological lymphadenopathy in the abdomen or pelvis. Small to medium ascites and diffuse anasarca. No pneumoperitoneum is evident. No acute bony abnormality is evident. Degenerative osseous changes. Surgical clips in the pelvic region. IMPRESSIONS: Mild diffuse thickening in the small and large bowel loops, which could be secondary to inadequate distention or mild acute enterocolitis. A rectal tube is in place. A percutaneous gastrostomy tube is in place. Cholelithiasis with mildly hydropic gallbladder, recommend ultrasound of the gallbladder for an optimal evaluation. Small to medium ascites and generalized anasarca. Small pleural effusion on the left side. Multifocal infiltrates in the bilateral lung hassan, concerning multifocal pneumonia. Small pericardial effusion. Overall, there is an interval worsening compared to the previous examination. /[place]
[2025-02-05 05:23] LABS: ASPARTATE AMINOTRANSFERASE 36.0 U/L (10-37); CREATININE 3.5 mg/dL (0.5-1.0); GLOMERULAR FILTR. RATE CALC 14.0 mL/min (>90); GLUCOSE,RANDOM 138.0 mg/dL (70-105); SODIUM SERUM 151.0 mmol/L (136-145); TOTAL PROTEIN, SERUM 4.7 g/dL (6.0-8.3); UREA NITROGEN, BLOOD 51.0 mg/dL (7-18)
[2025-02-05 06:00] LABS: INR 1.14 (0.85-1.15)
--- NOTE | 2025-02-05 06:01 | NUR ---
summary- patient active bleeding orally and via gtube when assesing for aspiration blood red bright in residual, TAHA SEALER DRY CELL was made aware. New orders CT ABD, protonix and sandostatin drip, 2 platelets transfusion, h&h Q6H, NPO, D/C FEEDING. PT POOR PROGNOSIS- RP AWARE CONT CARE. DNR. TOSA has not ruled out. abnormal labs reported as well. poor urine output 125ml despite lasix drip.
--- NOTE | 2025-02-05 08:50 | HMCIMG ---
Comparison yesterday Findings: There are infiltrates noted in the left lung base The heart is enlarged. There are no acute fractures or pneumothorax. The endotracheal tube is 1.6 cm from the arminda. Left PICC line is in the SVC impression: Left basilar infiltrate with pleural effusion /[place]
--- NOTE | 2025-02-05 10:58 | PN ---
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 Unstageable wound on sacrum Chronic infarct in the right frontal and parietal lobes. on MRI Brain 02/02/25 Right BKA INTERVAL HISTORY: Pt is a 70-year-old ill female who remains intubated and mechanically ventilated on assist control mode (VT 400 mL, RR 18, PEEP 5, FiO2 30%) with SpO2 99%. Off sedation for several days but not awakening; GCS 6. Pt has become increasingly hypotensive during the day and per nurse she has been having to go up on the pressors Urine output improved with lasix gtt to 425 ml in last 24 hrs. AMINA balance +2 L. White count normalized, HH 9.1/25.8 Plt count of 62K. Potassium 2.6 was corrected by protocol 3.1. sputum culture growing Klebsiella pneumonia and Pseudomonas aeruginosa. HH has remained stable. she is on Sandostatin and Protonix gtt per GI recs. Chest XR impression-impression: Left basilar infiltrate with pleural effusion I spoke to pt's at the bedside. He wishes to continue current supportive measures including mechanical ventilation and baseline vasopressor support, for now. He expressed that the family is leaning towards transitioning to comfort -focused care within the next 2-3 days once additional family members are present. REVIEW OF SYSTEMS: Unable to obtain due to patient's intubated PHYSICAL EXAM: GENERAL: Critically ill intubated and sedated. HEENT: Sclera non icteric, dry mucosa NECK: Supple, no JVD, trachea midline LUNGS: Clear breath sounds bilaterally. No wheezes HEART: Regular rate and rhythm. Normal S1 and S2, without murmurs ABD: Abdomen soft, nontender. Bowel sounds present EXT: No clubbing cyanosis or edema, history of right BKA NEURO: Intubated and sedated Vital Signs (last 8hr) Date Time Temp Pulse Resp B/P (MAP) Pulse Ox O2 Delivery O2 Flow Rate FiO2 02/05/25 09:39 97 30 02/05/25 06:22 105 30 02/05/25 05:45 106 35 100 02/05/25 05:45 30 02/05/25 05:40 106 30 141/78 (99) 100 02/05/25 05:30 113 37 100 02/05/25 05:25 105 29 159/77 (104) 100 02/05/25 05:15 105 28 100 02/05/25 05:10 106 28 169/95 (119) 100 02/05/25 05:02 106 19 145/74 (97) 100 02/05/25 05:00 101 106 100 02/05/25 04:45 101 100 02/05/25 04:30 104 30 100 02/05/25 04:00 100 Ventilator+ 30 30 02/05/25 04:00 97.7 02/05/25 03:55 102 58 110/61 (77) 100 02/05/25 03:45 103 48 100 02/05/25 03:41 104 57 118/58 (78) 100 02/05/25 03:38 99 30 02/05/25 03:34 102 39 118/57 (77) 100 02/05/25 03:30 101 30 100 02/05/25 03:15 100 30 100 02/05/25 03:00 99 29 100 LABS: Hematology Labs: Test 02/05/25 06:18 02/05/25 00:50 02/04/25 14:36 Range/Units Hemoglobin 9.5 L 12.0-16.0 g/dL Hematocrit 26.0 L 36-48 % White Blood Count 10.1 4.8-10.8 K/uL Red Blood Count 2.98 L 4.00-5.50 MIL/uL Mean Corpuscular Volume 86.6 79-99 fL Mean Corpuscular Hemoglobin 30.5 27.0-33.0 pg Mean Corpuscular Hemoglobin Concent 35.3 32.0-36.0 g/dL Red Cell Distribution Width 16.9 H 11.0-15.5 % Platelet Count 62 L 130-400 K/uL Mean Platelet Volume 12.7 H 7.5-10.5 fL Immature Granulocyte % (Auto) 1.2 H 0-1 % Neutrophils (%) (Auto) 81.9 H 40.0-77.0 % Lymphocytes (%) (Auto) 11.9 L 21.0-51.0 % Monocytes (%) (Auto) 2.5 L 3.0-13.0 % Eosinophils (%) (Auto) 2.2 0.0-8.0 % Basophils (%) (Auto) 0.3 0.0-5.0 % Neutrophils # (Auto) 8.3 H 1.8-7.7 K/uL Lymphocytes # (Auto) 1.2 1.0-4.8 K/uL Monocytes # (Auto) 0.3 0.1-1.0 K/uL Eosinophils # (Auto) 0.22 0.00-0.70 K/uL Basophils # (Auto) 0.03 0.00-0.20 K/uL Absolute Immature Granulocyte (auto 0.12 0-1 K/uL Nucleated Red Blood Cells 1.8 H 0.0-0.19 % Platelet Morphology Comment See comments Erythrocyte Sedimentation Rate 33 H 0-30 MM/HR Chemistry Labs: Test 02/05/25 04:14 02/05/25 00:50 02/04/25 17:56 02/04/25 14:36 Range/Units Sodium Level 151 H 136-145 mmol/L Potassium Level 2.6 *L 3.5-5.1 mmol/L Chloride Level 108 101-111 mmol/L Carbon Dioxide Level 14 L 21-32 mmol/L Blood Urea Nitrogen 51 H 7-18 mg/dL Creatinine 3.5 H 0.5-1.0 mg/dL Glomerular Filtration Rate Calc 14 >90 mL/min Random Glucose 138 H 70-105 mg/dL Lactic Acid Level 6.8 H 0.8-2.5 mmol/L Total Calcium 8.8 8.5-10.1 mg/dL Total Bilirubin 0.9 # 0.2-1.0 mg/dL Aspartate Amino Transf (AST/SGOT) 36 10-37 U/L Alanine Aminotransferase (ALT/SGPT) 14 12-78 U/L Alkaline Phosphatase 1058 *H 50-136 U/L Total Protein 4.7 L 6.0-8.3 g/dL Albumin 1.2 L 3.5-5.0 g/dL Phosphorus Level 3.2 2.5-4.9 mg/dL Magnesium Level 2.00 1.80-2.40 mg/dL Whole Blood Glucose 176 H 70-110 MG/DL Lactate Dehydrogenase 188 81-234 U/L Test 02/04/25 04:49 Range/Units Ammonia 204 *H 11-32 umol/L Procalcitonin 1.95 H 0.05-0.5 ng/mL Coagulation Labs: Test 02/05/25 04:14 02/04/25 14:36 02/04/25 04:49 Range/Units Prothrombin Time 11.9 H 9.6-11.6 SEC Prothromb Time International Ratio 1.14 0.85-1.15 Fibrinogen 612 *H 180-350 mg/dL D-Dimer Quantitative (PE/DVT) 1397 *H 0-500 ng/mL Activated Partial Thromboplast Time 53.7 H 26.3-35.5 SEC DIAGNOSTICS / RADIOLOGY RESULTS: [place] [address] IMAGING REPORT Signed PATIENT: JUSTIN KLINE MR#: [id number] : 1955 SEX: F AGE: 70 LOCATION: [facility] ORDER 2300 STATUS: ADM IN REPORT#: [id number] SERVICE 0600 REASON: intubated ORDERING PHYSICIAN: KARL RODRIGUEZ PROCEDURE: CXR1VW - CHEST 1VW Comparison yesterday Findings: There are infiltrates noted in the left lung base The heart is enlarged. There are no acute fractures or pneumothorax. The endotracheal tube is 1.6 cm from the arminda. Left PICC line is in the SVC impression: Left basilar infiltrate with pleural effusion /[place] DICTATED BY: SELIN BURNS MD DATE: 02/05/25948 ELECTRONICALLY SIGNED BY: SELIN BURNS MD DATE: 02/05/25948 PLAN Continue full ICU-level care with ventilatory and hemodynamic support. Ongoing discussion with family regarding poor prognosis and goals of care. Omega gtt for Hypotension maintain MAP > 65 Recommend palliative care consult for further support and discussion of comfort- focused approach if consistent with family wishes. Continue trending lactate and urine output; reassess need for further escalation. Chest x-ray in a.m. Following hemoglobin and transfusing as needed Stop Heparin gtt due to acute anemia Following cultures, antibiotics continue tube feedings continue IV abx Follow nephrology recommendation-Per nephrology no need for HD at this time. NEURO: Minimize central acting medications as possible. Fall Precautions. Well lighted room through the day and minimize interruptions through the night to prevent acute delirium. PULMONARY: Supplemental 02 as needed Titrate Fio2 to keep Spo2 > or = 90% DuoNebs and CPT as needed IS hourly while awake for pulmonary hygiene Out of bed to chair as tolerated VAP Bundle abg and chest xe in am Vent settings ACVC Tv 400, RR 18. Fio2 30% and PEEP 6 CARDIOVASCULAR: Follow hemodynamics. Titrate vasopressor to keep MAP >65 or systolic blood pressure >95mmHg Drips: Omega gtt LINES: Left upper extremity PICC line GI & NUTRITION: Continue nutritional support Aspirations precautions Prokinetic agents and laxatives as needed continue tube feedings. KIDNEYS & ELECTROLYTES: Strict monitoring of intake and output Daily weights Avoid nephrotoxic agents Monitor electrolytes and replace as needed Goal urine output of 30mL/hr or 0.5mL/kg/hr Urine output: [ ] Fluid Balance: [ ] ENDOCRINE: Maintain blood glucose between 100-180 at all times. Insulin sliding scale for blood glucose management INFECTIOUS DISEASE: Trend temperature. Leonard-culture if febrile. HEMATOLOGY & COAGULATION: Monitor H&H. Keep Hgb > 7 Transfuse 1 unit of PRBC for Hgb < 7 Transfuse 1 pack of platelets of platelets < 20, 000 Watch for any signs and symptoms of bleeding SKIN: Pressure ulcer prevention per facility protocol Rehab: PT/OT Prophylaxis: GI: Protonix 40 mg b.i.d. DVT: SCD Code Status: Full Resuscitation Disposition: [ ICU Total critical care time: 45 minutes Case was discussed and seen with my supervising physician. The above plan was formulated and agreed upon. ATTESTATION BY PHYSICIAN I reviewed the documentation, medical decision making, and treatment plan as noted by the mid-level provider above. I agree with the findings and plan of care. Rivera Ramos MD, NELLY J AGACNP Feb 05, 2025 10:58
[2025-02-05] MEDS ORDERED: COMPOUND IV REFRIGERATED 1 EACH IVSOLN MISC PRN (13:00)
--- NOTE | 2025-02-05 14:09 | PN ---
[facility] PROGRESS NOTE Date of Service: Feb 05, 2025 Time of Service: 13:48 SUBJECTIVE: 70-year-old female with past medical history of diabetes mellitus type 2, hypertension, anemia, history of CVA, history of right below-knee amputation who presented to the hospital secondary to hematemesis. Patient is currently intubated and sedated. The patient's history is mostly obtained from patient's who is present at bedside and from ED provider. The patient was noted to have black colored vomit at home which started yesterday. She has a history of peptic ulcer disease. She also has a PEG tube placed around two weeks ago. Peg tube was placed in [facility]. Per patient is able to swallow better now. denied any fever, chills, shortness for breath, chest pain. History is fairly limited at this time as patient is not able to participate in conversation. Labs were Notable for white count of 9.1, hemoglobin was 9.1, MCV was 86.7, platelet count was 456 K, sodium was 138, potassium was 3.1, bicarb was , creatinine was 1.7, glucose was 234, alk-phos was 153, total protein was 5.0, albumin was 0.9, lipase was negative normal Underwent a CT abdomen pelvis which showed no acute process in the CT abdomen without IV contrast. Patient was noted to have cystic structure in the right adrenal region measuring 5.9 x 3.9 cm. The patient also had fecal impaction noted. In the ED patient had episode of hematemesis and she was intubated for airway protection by ED provider. 01/23/2025: The patient is examined at the bedside. She was sedated and not responsive during my visit. GI performed EGD in the morning and they have observed no active bleeding. Nurse notified an unstageable wound on sacrum for which Wound consult is placed today. We will be manage as per critical Care recommendations. 01/24/2025: The patient is examined at the bedside. She was sedated and not responsive during my visit. Her arms are swollen. Her vitals are normal except for blood pressure is 97/51. Her labs are in the normal range except for Hb is 6.6, chloride is 113, BUN is 39, creatinine is 2.4, iron is 28, TIBC is 44, % saturation is 63.6, TSH is 7.62. Her urine culture grew 10,000-50,000 CFU. Identification and susceptibility are in process. Blood culture show no growth after 48 hours. Renal ultrasound show renal parenchymal disease. As her hemoglobin is low she received a blood transfusion. After the transfusion her hemoglobin is 7.1. We ordered a bilateral upper limb doppler which showed evidence of DVT. Gastroenterology was consulted to give recommendations on starting anticoagulation. GI recommended high dose Protonix drip for 48 hours and carafate 1gm PO QID, after 48 hours start heparin drip. IR was called to ask about the option of placing an SVC filter, and they recommended mechanical thrombectomy. The patient is not a good candidate for an SVC filter. A urinalysis, urine electrolytes, urine protein were ordered today. Urinalysis showed turbid urine, protein >300, ketones 5, moderate occult blood, moderate leukocyte esterase, RBC 6 to 10, WBC is TNTC, protein 410.9, sodium is 43, potassium is 36, chloride is 40. 01/25/2025: The patient is examined at the bedside. She was sedated and not responsive during my visit. Her arms are swollen. Her vitals are normal. Her labs are in the normal range except for Hb is 5.9, WBC is 11.2, Cl is 112, potassium is 3.2, CO2 is 19, BUN is 40 creatinine is 2.6. As her hemoglobin is low we gave a transfusion and the repeat Hb is 7.4. Gastroenterology will do EGD and colonoscopy tomorrow morning. Hematology is consulted and they recommended same management. Wound care recommended to cleanse with normal saline, pat dry, apply medihoney, cover with allevyn, change daily and prnKeep wounds clean and dry , Offloading/reposition q 2 hours. Bleeding scan showed no evidence of gastrointestinal hemorrhage. 01/26/2025: The patient is examined at the bedside. She was sedated and not responsive during my visit. Her arms are swollen. Her vitals are normal except for blood pressure which is 96/45. Her labs are in the normal range except for Hb is 8.7, K is 2.8, Cl is 112, CO2 is 19, BUN is 37, creatinine is 2.5, Albumin is 1.1. She is scheduled for an EGD and colonoscopy today. We replaced the potassium and the repeat potassium levels are 2.8 and 3.1. 01/27/2025: Patient is examined at the bedside. She was sedated and not responsive during my visit. Her arms are swollen. Her vitals are normal except for blood pressure which is 94/49. Her labs are in the normal range except for hemoglobin is 8.7, potassium is 2.9, chloride is 112, BUN is 33, creatinine is 2.5, albumin is 1, CRP is 223.1. Urine culture showed ESBL which is sensitive to Zosyn, meropenem and levofloxacin. She underwent endoscopy and colonoscopy yesterday which showed no evidence of bleeding. Gastroenterology recommended to follow within 1 week after discharge. Chest x-ray showed minimal pulmonary congestion. The nurse told us that she will try waking up the patient, extubate her and try spontaneous breathing trial. 01/28/2025: Patient is seen and examined at the bedside. She was sedated and not responsive during my visit. Her vital signs are in the normal range except for blood pressure is 97/55. Labs are in the normal range except for hemoglobin is 8.3, WBCs 12.9, potassium is 3.2, chloride is 100, bicarb is 16, BUN is 33, creatinine is 2.5, glucose is 181, ALP is 154. Yesterday the nurse tried to extubate her but she could not extubate as she is not waking up and she can't not protect her airway. She is currently on heparin drip. Critical care stopped her Protonix drip as she is fluid overloaded and they started protonix 40 mg b.i.d. We will continue to follow recommendations from critical Care and Gastroenterology. 01/29/2025: Patient is seen and examined at the bedside. She was sedated and not responsive during my visit. Her vital signs are in the normal range except for blood pressure is 90/48. Labs are in the normal range except for hemoglobin 7.7, potassium 2.9, sodium 146, chloride 113, bicarbonate 20, BUN 33, creatinine 2.5. Chest x-ray showed that there is an infiltrate in the left lower lung with a left-sided pleural effusion. She is currently on heparin drip and Protonix 40 mg b.i.d. We will continue to follow recommendations from critical Care and Gastroenterology. 01/30/2025: She was evaluated at the bedside this morning. As per nurse she passed black tarry stool this morning. She is sedated and intubated at pain sitting tidal volume 400 mL/minute, FiO2 100%, peep 5 and RR 14. She is on pressor support with Levophed 0.05. The remarkable lab is for hemoglobin 8, ALP 321, albumin 0.8, creatinine 2.5, chloride 112, bicarbonate 20. She is continued on linezolid, Zosyn, levothyroxine, levetiracetam, Protonix, Levophed. Heparin drip held for temporarily because of supratherapeutic APTT. We will continue to follow recommendations from critical Care and Gastroenterology. 01/31/2025: She was seen and evaluated at the bedside this morning. As per nurse she passed greenish colored stool this morning. She is off sedation medicine but not responding to stimuli. CT brain has been ordered for further evaluation. She continues to remain intubated at tidal volume 400 mL/minute, FiO2 30%, peep 5 and RR 14. She is continued on linezolid, and Zosyn. Cr and BUN this morning have been 2.8 and 31 respectively. Urine output in past 24 hours have been 0 .03ml/kg/hr (75ml). We have ordered ammonia levels this morning. We will continue to follow recommendations from critical Care and Gastroenterology. 02/01/2025: Patient was seen and evaluated at bedside. Her was present besides her. She continues to be unresponsive with sluggish movement of eyes. She is off sedation and vasopressor support. Her CT scan done yesterday showed Ill-defined hypodensity with loss of rodriguez-white matter interface in the right frontal and high parietal lobes concerning for possible infarct. She will further undergo MRI and EEG. Neurology is on the board. Her ammonia levels were elevated (48) for which lactulose was added today. Due to hyperglycemia, sliding scale insulin was also adjusted. 02/02/2025: Patient was seen and evaluated at bedside. She was accompanied by her . Her daughter was on the phone and expressed concerns about the patient. We went over the progress so far and explained patient's condition to the family members. As per , patient did move her arms and open her eyes at night. Her ammonia has jumped up to 106 for which lactulose MA has been added. Sliding scale insulin was adjusted and Lantus was added because of consistent hyperglycemia. Her lactic acid is elevated at 5 and repeat values showed 5.8. Bicarb deficit was also present for which sodium bicarbonate has been added to the patient's medication regimen. Creatinine continues to be elevated by 3.1 and BUN 35. Alkaline phosphatase is also elevated 779. Patient's urine output in the past 24 hours is 150 mL. 02/03/2025: Patient was seen and evaluated at bedside this morning. Her was besides her with whom we discussed patient's current condition. Patient's condition has deteriorated as compared to yesterday with Hb dropping below to 6.8 and Lactic acid rising to 9.2. So far, sodium bicarbonate hasn't improved metabolic acidosis. She remains intubated and on CPAP, undergoing SBT. During my time of evaluation, patient was unresponsive, even to sternal rub. Her Urine output in the past 24 hours has been 200ml. We will follow up with nephrology as well as critical care recommendations regarding patient's condition. 02/04/2025: Patient was seen and examined at bedside. She continues to be intubated and ventilated in [facility]. FiO2 30, VT 400, peep 6, respiratory rate 20. Patient is still maintained on dena 0.3. Her hemoglobin dropped again today to 6.7 from 7.7 after blood transfusion. She has received another PRBC today. Her platelet count also dropped to 74. Fibrinogen, D-dimers, haptoglobin, Sera direct and pathology smear review have been ordered in order to further evaluate repeat drop in blood counts. Lactic acid continues to be elevated 9.7 with patient in intractable metabolic acidosis. Ammonia is again elevated 204. Patient was accompanied by her with whom we discussed the patient's condition and also Nephrology not recommending hemodialysis at the moment. Her urine output in the past 24 hours has been 350. Respiratory cultures are showing preliminary 2+ GRAM NEGATIVE RODS. Patient is currently on Merrem and linezolid. 02/05/25: Patient was seen and examined at bedside. Her hemoglobin value today was 9.1, she has received another PRBC yesterday. Platelet count has been trending down 65k to 62K today. Fibrinogen today was 612, D-Dimer is 1397. Lactic acid trending down 9.7>7.3>6.8. Ammonia was 204 yesterday, ordered ammonia again today will manage based on results. Patient was accompanied by her with whom we discussed the patient's condition and he is thinking about deciding to put her on only comfort care, he hasn't decided yet. Her urine output was 100ml. Respiratory culture came back positive for klebsiella pneumonia, Pseudomonas aeruginosa. She continues to be intubated and ventilated in [facility]. FiO2 30, VT 400, peep 6, respiratory rate 20. Patient is still maintained on dena 0.3. REVIEW OF SYSTEMS Unable to obtain as patient is sedated PHYSICAL EXAM GENERAL APPEARANCE: She is currently intubated and unresponsive this morning. On CPAP trial. NEUROLOGICAL: Unable to obtain. HEENT: Face is symmetric. Other examination couldn't be done. NECK: Supple. No submental, submandibular, pre-/postauricular, occipital or supraclavicular lymphadenopathy. CHEST: Normal chest expansion. LUNGS: Absence of any rales, rhonchi or any wheezing. CARDIOVASCULAR: Regular. S1 and S2 normal. No appreciable rubs, murmurs or gallops. ABDOMEN: Soft, nontender, and nondistended. There is no rebound, voluntary guarding, or rigidity. Patient has a PEG tube in place : Deferred. EXTREMITIES: Below-knee amputation of the right lower extremity SKIN: No skin breakdown. Vital Signs (last 8hr) Date Time Temp Pulse Resp B/P (MAP) Pulse Ox O2 Delivery O2 Flow Rate FiO2 02/05/25 13:11 103 30 02/05/25 11:15 103 30 84/45 (58) 100 02/05/25 11:00 100 8 93/41 (58) 100 02/05/25 10:45 99 27 101/44 (63) 100 02/05/25 10:30 99 13 100/48 (65) 100 02/05/25 10:15 101 7 110/55 (73) 100 02/05/25 10:00 99 30 111/53 (72) 100 02/05/25 09:45 100 30 97/51 (66) 100 02/05/25 09:39 97 30 02/05/25 09:30 98 30 103/51 (68) 100 02/05/25 09:15 99 30 104/42 (62) 100 02/05/25 09:00 98 30 114/61 (78) 100 02/05/25 08:45 99 31 127/57 (80) 100 02/05/25 08:30 136 30 123/64 (83) 100 02/05/25 08:15 98 29 115/77 (90) 100 02/05/25 08:00 98.4 105 29 119/75 (90) 100 02/05/25 08:00 30 02/05/25 08:00 98.4 02/05/25 07:45 99 28 135/81 (99) 100 02/05/25 07:30 99 29 141/87 (105) 100 02/05/25 07:15 98 28 137/75 (95) 100 02/05/25 07:00 99 28 157/72 (100) 100 02/05/25 06:22 105 30 LABS: Laboratory: Test 02/05/25 12:25 02/05/25 11:15 02/05/25 04:14 02/05/25 04:10 Range/Units Whole Blood Glucose 124 H 70-110 MG/DL Hemoglobin 9.2 L 12.0-16.0 g/dL Hematocrit 26.5 L 36-48 % Potassium Level 3.1 L 3.5-5.1 mmol/L Prothrombin Time 11.9 H 9.6-11.6 SEC Prothromb Time International Ratio 1.14 0.85-1.15 Fibrinogen 612 *H 180-350 mg/dL Sodium Level 151 H 136-145 mmol/L Chloride Level 108 101-111 mmol/L Carbon Dioxide Level 14 L 21-32 mmol/L Blood Urea Nitrogen 51 H 7-18 mg/dL Creatinine 3.5 H 0.5-1.0 mg/dL Glomerular Filtration Rate Calc 14 >90 mL/min Random Glucose 138 H 70-105 mg/dL Lactic Acid Level 6.8 H 0.8-2.5 mmol/L Total Calcium 8.8 8.5-10.1 mg/dL Total Bilirubin 0.9 # 0.2-1.0 mg/dL Aspartate Amino Transf (AST/SGOT) 36 10-37 U/L Alanine Aminotransferase (ALT/SGPT) 14 12-78 U/L Alkaline Phosphatase 1058 *H 50-136 U/L Total Protein 4.7 L 6.0-8.3 g/dL Albumin 1.2 L 3.5-5.0 g/dL Blood Gas Specimen Type Arterial Arterial Blood pH 7.501 H 7.350-7.450 Arterial Blood Partial Pressure CO2 19 *L 32-45 mmHg Arterial Blood Partial Pressure O2 99.6 83.0-108.0 mmHg Arterial Blood HCO3 14.8 L 21.0-28.0 mmol/L Arterial Blood Oxygen Saturation 97.0 94.0-98.0 % Arterial Blood Base Excess -6.6 L -2.0-3.0 mmol/L Hemoglobin (Blood Gas) 10.5 L 12.0-16.0 g/dL Sodium (Blood Gas) 147 H 136-145 MMOL/L Bedside Potassium (Blood Gas) 2.7 *L 3.4-4.5 MMOL/L Bedside Chloride (Blood Gas) 110 H 98-107 MMOL/L Bedside Glucose (Blood Gas) 138 H 65-95 MG/DL Bedside Ionized Calcium (Blood Gas) 1.24 1.15-1.33 MMOL/L Bedside Lactic Acid (Blood Gas) 7.35 *H 0.36-0.75 MMOL/L Blood Gas Temperature 37.0 35.5-37.0 CELSIUS Blood Gas Respiration Rate 20.0 min. Blood Gas Vent Mode ACVC ROOM AIR FiO2 30.0 % Blood Gas Tidal Volume 400 ml Blood Gas PEEP 6 cm H2O Blood Gas Specimen Comment LR RN KYLE Test 02/05/25 00:50 02/04/25 14:36 02/04/25 04:49 Range/Units White Blood Count 10.1 4.8-10.8 K/uL Red Blood Count 2.98 L 4.00-5.50 MIL/uL Mean Corpuscular Volume 86.6 79-99 fL Mean Corpuscular Hemoglobin 30.5 27.0-33.0 pg Mean Corpuscular Hemoglobin Concent 35.3 32.0-36.0 g/dL Red Cell Distribution Width 16.9 H 11.0-15.5 % Platelet Count 62 L 130-400 K/uL Mean Platelet Volume 12.7 H 7.5-10.5 fL Immature Granulocyte % (Auto) 1.2 H 0-1 % Neutrophils (%) (Auto) 81.9 H 40.0-77.0 % Lymphocytes (%) (Auto) 11.9 L 21.0-51.0 % Monocytes (%) (Auto) 2.5 L 3.0-13.0 % Eosinophils (%) (Auto) 2.2 0.0-8.0 % Basophils (%) (Auto) 0.3 0.0-5.0 % Neutrophils # (Auto) 8.3 H 1.8-7.7 K/uL Lymphocytes # (Auto) 1.2 1.0-4.8 K/uL Monocytes # (Auto) 0.3 0.1-1.0 K/uL Eosinophils # (Auto) 0.22 0.00-0.70 K/uL Basophils # (Auto) 0.03 0.00-0.20 K/uL Absolute Immature Granulocyte (auto 0.12 0-1 K/uL Nucleated Red Blood Cells 1.8 H 0.0-0.19 % Phosphorus Level 3.2 2.5-4.9 mg/dL Magnesium Level 2.00 1.80-2.40 mg/dL Platelet Morphology Comment See comments Erythrocyte Sedimentation Rate 33 H 0-30 MM/HR D-Dimer Quantitative (PE/DVT) 1397 *H 0-500 ng/mL Lactate Dehydrogenase 188 81-234 U/L Activated Partial Thromboplast Time 53.7 H 26.3-35.5 SEC Ammonia 204 *H 11-32 umol/L Procalcitonin 1.95 H 0.05-0.5 ng/mL Current Medications Medications (Trade) Dose Ordered Sig/Arik Route PRN Reason Start Time Stop Time Status Last Admin Dose Admin Albumin Human 50 ml @ 0 mls/hr Q8H6 IV 01/24/25 14:00 01/24/25 22:00 DC 01/24/25 20:45 1,200 MLS/HR Artificial Tears (Artificial Tears) 1 DROP OR AD Q8H OU 01/23/25 19:30 02/22/25 19:29 02/05/25 12:29 1 DROP Bumetanide (Bumex 1mg Vial) 1 mg ONCE PRN IVP AFTER TRANSFUSION 01/24/25 08:00 01/24/25 09:23 DC Bumetanide (Bumex 1mg Vial) 2 mg ONCE PRN IVP AFTER TRANSFUSION 01/24/25 14:00 01/24/25 14:00 DC 01/24/25 13:28 2 MG Cefepime HCl (MAXipime 2 gm vial) 2 gm Q24H IVPB 01/23/25 12:00 01/26/25 12:05 DC 01/26/25 11:38 2 GM Ceftriaxone Sodium (ROCEphine 1G INJ) 1 gm Q24H IVPB 01/22/25 12:00 01/22/25 16:25 DC 01/22/25 14:18 1 GM Chlorhexidine Gluconate (Peridex) 15 ml TID MM 01/23/25 21:00 02/06/25 20:59 02/05/25 13:01 15 ML Dexmedetomidine/ Sodium Chloride (PRECEdex 400MCG/ 100ML-NS) 400 mcg PROTOCOL IV 01/27/25 15:30 02/26/25 15:29 Dextrose (D50w) 50 ml AD PRN IV HYPOGLYCEMIA PROTOCOL 01/22/25 15:30 02/21/25 15:29 02/03/25 05:24 50 ML Epoetin Carlton-epbx (Retacrit) 10,000 unit QWEEK SQ 01/31/25 15:00 03/02/25 14:59 01/31/25 15:16 10,000 UNIT Fentanyl Citrate 100 ml @ 2.5 mls/hr PROTOCOL IV 01/22/25 12:00 01/22/25 11:55 DC Fentanyl Citrate 100 ml @ 2.5 mls/hr PROTOCOL IV 01/22/25 12:00 01/27/25 15:35 DC 01/27/25 05:34 2.5 MLS/HR Furosemide 100 mg/ Sodium Chloride 100 ml @ 0 mls/hr PROTOCOL IV 02/04/25 13:00 02/05/25 12:08 DC 02/04/25 21:39 10 MLS/HR Glucagon (Glucagon 1mg Kit) 1 mg AD PRN IM HYPOGLYCEMIA PROTOCOL 01/22/25 15:30 02/21/25 15:29 Heparin Sodium (Porcine) (HEParin 5,000 UNIT VIAL) *calculation based on ACTUAL B... AD PRN IV HEPARIN PROTOCOL 01/27/25 16:30 02/03/25 09:31 DC Heparin Sodium/ Dextrose 250 ml @ 0 mls/hr Q6H IV 01/27/25 16:30 02/03/25 09:28 DC 01/31/25 17:28 0 MLS/HR Insulin Glargine (LANtus 100 UNITS/ML 10 ML VIAL) 10 units BID@0730,2100 SQ 02/01/25 21:00 02/02/25 09:20 DC 02/02/25 08:08 10 UNITS Insulin Glargine (LANtus 100 UNITS/ML 10 ML VIAL) 20 units BID@0730,2100 SQ 02/02/25 21:00 02/03/25 09:50 DC Insulin Human Regular (humuLIN R 100 UNIT/ML 3ML) INSULIN SLIDING SCAL... ACHS SQ 01/22/25 21:00 01/25/25 20:51 DC 01/25/25 16:29 3 UNIT Insulin Human Regular (humuLIN R 100 UNIT/ML 3ML) INSULIN SLIDING SCAL... Q6H6 SQ 01/26/25 10:00 02/01/25 12:57 DC 02/01/25 11:59 3 UNIT Insulin Human Regular (humuLIN R 100 UNIT/ML 3ML) INSULIN SLIDING SCAL... Q6H6 SQ 02/01/25 18:00 03/03/25 17:59 02/05/25 00:39 4 UNIT Lactulose (Constulose 20gm/ 30ml Udcup) 20 gm BID PRN PO CONSTIPATION 02/04/25 12:30 03/06/25 12:29 Leptospermum Honey (Medihoney) 1 APPLICATION DAILY TP 01/26/25 09:00 02/25/25 08:59 02/05/25 10:37 1 APPL Levetiracetam (kepPRA 500 MG TABLET) 500 mg BID PO 01/22/25 21:00 01/22/25 22:13 DC Levetiracetam 500 mg/Sodium Chloride 100 ml @ 400 mls/hr Q12H9 IV 01/22/25 22:00 02/21/25 21:59 02/05/25 10:36 400 MLS/HR Levothyroxine Sodium (SYNTHroid VIAL 100MCG) 100 mcg SYN IV 01/23/25 06:30 02/22/25 06:29 02/04/25 06:08 100 MCG Linezolid 300 ml @ 150 mls/hr Q12H IV 01/24/25 08:00 02/01/25 12:55 DC 02/01/25 08:10 150 MLS/HR Linezolid 300 ml @ 150 mls/hr Q12H IV 02/02/25 09:30 02/04/25 12:16 DC 02/04/25 10:21 150 MLS/HR Magnesium Sulfate 50 ml @ 0 mls/hr PROTOCOL PRN IV Hypomagnesemia 01/22/25 15:30 02/21/25 15:29 01/29/25 08:35 25 MLS/HR Meropenem (Merrem 1gm) 1 gm Q12H IVPB 02/02/25 09:30 02/02/25 11:06 DC Meropenem (Merrem 1gm) 1 gm Q12H IVPB 02/02/25 13:30 02/12/25 13:29 02/05/25 13:00 1 GM Metolazone (zarOXOlyn) 5 mg DAILY PO 02/05/25 09:00 03/07/25 08:59 02/05/25 10:36 5 MG Metronidazole/ Sodium Chloride 100 ml @ 100 mls/hr Q8H6 IVPB 01/22/25 22:00 01/26/25 12:05 DC 01/26/25 06:13 100 MLS/HR Midazolam HCl 50 ml @ 0 mls/hr PROTOCOL IV 01/22/25 12:00 01/27/25 15:35 DC 01/27/25 09:10 5 MLS/HR Norepinephrine 250 ml @ 0 mls/hr PROTOCOL IV 01/22/25 10:00 01/23/25 09:52 DC 01/22/25 14:24 60 MLS/HR Norepinephrine Bitartrate (Norepineph 16 Mg/250ml NS Premix) per protocol PROTOCOL IV 01/23/25 10:00 02/22/25 09:59 02/01/25 20:44 16 MG Nystatin (NystOP 15 GM POWDER) Left gluteal fold BID TP 02/03/25 21:00 03/05/25 20:59 02/05/25 10:37 1 APPL Octreotide Acetate 1250 mcg/ Sodium Chloride 250 ml @ 0 mls/hr PROTOCOL IV 01/22/25 12:30 01/22/25 12:17 DC Octreotide Acetate 1250 mcg/ Sodium Chloride 250 ml @ 0 mls/hr PROTOCOL IV 01/22/25 12:30 01/24/25 09:23 DC 01/22/25 12:41 5 MLS/HR Octreotide Acetate 1250 mcg/ Sodium Chloride 250 ml @ 0 mls/hr PROTOCOL IV 02/05/25 06:00 03/07/25 05:59 02/05/25 06:49 5 MLS/HR Pantoprazole Sodium (PROTonix 40MG INJ) 40 mg BID IVP 01/24/25 21:00 01/24/25 15:02 DC Pantoprazole Sodium (PROTonix 40MG INJ) 40 mg BID IVP 01/28/25 21:00 02/05/25 00:36 DC 02/04/25 20:21 40 MG Pantoprazole Sodium 80 mg/ Sodium Chloride 100 ml @ 10 mls/hr Q10H IV 01/22/25 09:00 01/24/25 09:23 DC 01/24/25 09:17 10 MLS/HR Pantoprazole Sodium 80 mg/ Sodium Chloride 100 ml @ 10 mls/hr Q10H IV 01/24/25 15:00 01/28/25 13:39 DC 01/28/25 00:06 10 MLS/HR Pantoprazole Sodium 80 mg/ Sodium Chloride 100 ml @ 10 mls/hr Q10H IV 02/05/25 01:00 03/07/25 00:59 02/05/25 13:01 10 MLS/HR Pharmacy Profile Note (Pharmacy Communication) 1 each ONCE MISC 01/22/25 12:00 01/22/25 11:53 DC Pharmacy Profile Note (Pharmacy Communication) 1 each ONCE MISC 01/22/25 12:00 01/22/25 11:53 DC Pharmacy Profile Note (Pharmacy Communication) 1 each ONCE MISC 01/23/25 13:00 01/23/25 13:09 DC Pharmacy Profile Note (Pharmacy Communication) 1 each ONCE MISC 01/24/25 08:00 01/24/25 07:51 DC Pharmacy Profile Note (Pharmacy Communication) 1 each ONCE MISC 02/02/25 09:30 02/02/25 09:09 DC Phenylephrine HCl 100 mg/Sodium Chloride 250 ml @ 0 mls/hr AD PRN IV TITRATE 01/22/25 17:00 02/02/25 17:22 DC 01/23/25 09:30 0 MLS/HR Phenylephrine HCl 100 mg/Sodium Chloride 250 ml @ 0 mls/hr PROTOCOL IV 02/02/25 17:30 03/04/25 17:29 02/03/25 22:02 0.5 MLS/HR Piperacillin Sod/ Tazobactam Sod (Zosyn 3.375gm+NS 50ml) 3.375 gm Q8H IV 01/26/25 12:30 02/01/25 12:55 DC 02/01/25 12:04 3.375 GM Potassium Phosphate 250 ml @ 42 mls/hr PROTOCOL PRN IV PROTOCOL 02/01/25 15:30 03/03/25 15:29 02/01/25 17:21 42 MLS/HR Potassium Chloride 100 ml @ 50 mls/hr AD PRN IV POTASSIUM PROTOCOL 01/22/25 15:30 01/24/25 07:50 DC Potassium Chloride 100 ml @ 100 mls/hr AD PRN IV POTASSIUM PROTOCOL 01/22/25 15:30 02/21/25 15:29 02/05/25 06:43 100 MLS/HR Potassium Chloride (K-Dur/Klor-Con 20meq) 20 meq AD PRN PO POTASSIUM PROTOCOL 01/22/25 15:30 02/21/25 15:29 01/26/25 06:19 20 MEQ Potassium Chloride (KCl 10% Elixir 20meq/15ml) 20 meq AD PRN PO POTASSIUM PROTOCOL 01/22/25 15:30 02/21/25 15:29 02/02/25 03:29 20 MEQ Propofol (DIPRivan 1000MG/ 100ML) 1,000 mg PROTOCOL PRN IV SEDATION 01/22/25 12:00 01/22/25 11:55 DC Sodium Bicarbonate 150 meq/Dextrose 1,150 ml @ 100 mls/hr [id number] IVP 02/02/25 06:00 02/02/25 09:04 DC 02/02/25 05:45 100 MLS/HR Sodium Bicarbonate (Sodium Bicarbonate) 650 mg BID PO 01/24/25 21:00 02/04/25 19:19 DC 02/04/25 10:31 650 MG Sodium Bicarbonate (Sodium Bicarbonate) 650 mg BID PO 02/01/25 21:00 02/01/25 13:00 DC Sodium Bicarbonate (Sodium Bicarbonate) 1,300 mg TID PO 02/04/25 21:00 02/23/25 20:59 02/05/25 10:36 1,300 MG Sodium Bicarbonate (Sodium Bicarb 50meq 50ml Vial) 50 meq Q6H IV 02/02/25 15:00 02/04/25 14:59 DC 02/04/25 10:36 50 MEQ Sodium Chloride 1,000 ml @ 150 mls/hr Q6H40M IV 01/22/25 12:00 01/23/25 10:56 DC 01/23/25 02:45 150 MLS/HR Sucralfate (Carafate) 1 gm BID PO 01/23/25 21:00 01/23/25 11:41 DC Sucralfate (Carafate) 1 gm BID PO 02/02/25 21:00 02/23/25 16:59 02/05/25 10:36 1 GM Sucralfate (Carafate) 1 gm QID PO 01/24/25 17:00 02/02/25 18:53 DC 02/02/25 17:25 1 GM Sucralfate (Carafate) 1 gm TID PO 01/23/25 14:00 01/24/25 15:02 DC 01/24/25 13:28 1 GM Thiamine HCl 100 mg/Sodium Chloride 50 ml @ 100 mls/hr Q24H IV 01/23/25 14:00 01/25/25 14:29 DC 01/25/25 13:53 100 MLS/HR Vancomycin HCl (Vancomycin 750mg) 750 mg Q24H IVPB 01/23/25 17:00 01/23/25 10:56 DC Vancomycin HCl (Vancomycin Protocol) 1 each AD IV 01/22/25 15:00 01/23/25 10:56 DC Vasopressin 40 units/Sodium Chloride 40 ml @ 0 mls/hr PROTOCOL IV 01/25/25 09:30 02/24/25 09:29 Wound Care/ Dressing Products (Venelex Ointment) BID TP 01/25/25 21:00 01/25/25 15:58 DC Wound Care/ Dressing Products (Venelex Ointment) 1 APPL BID TP 02/03/25 21:00 03/05/25 20:59 02/05/25 10:36 1 [facility] / RADIOLOGY: [address] [address] IMAGING REPORT Signed PATIENT: JUSTIN KLINE MR#: [id number] : 1955 SEX: F AGE: 70 LOCATION: 2CH ORDER 2300 STATUS: ADM IN REPORT#: [id number] SERVICE 0600 REASON: intubated ORDERING PHYSICIAN: KARL RODRIGUEZ PROCEDURE: CXR1VW - CHEST 1VW Comparison yesterday Findings: There are infiltrates noted in the left lung base The heart is enlarged. There are no acute fractures or pneumothorax. The endotracheal tube is 1.6 cm from the arminda. Left PICC line is in the SVC impression: Left basilar infiltrate with pleural effusion /[place] DICTATED BY: SELIN BURNS MD DATE: 02/05/25948 ELECTRONICALLY SIGNED BY: SELIN UBRNS MD DATE: 02/05/25948 [place] [id number] IMAGING REPORT Signed PATIENT: JUSTIN KLINE MR#: [id number] : 1955 SEX: F AGE: 70 LOCATION: 2CH ORDER 0036 STATUS: ADM IN REPORT#: [id number] SERVICE [id number] REASON: bleeding ORDERING PHYSICIAN: [facility] PROCEDURE: ABD PEL WO - CT ABDOMEN/PELVIS W/O CONTRAST EXAM: CT Abdomen and Pelvis without IV contrast CLINICAL HISTORY: Bleeding. TECHNIQUE: Thin collimated axial CT images of the abdomen and pelvis were obtained, with sagittal and coronal reformatted images also submitted. A CT scan is done according to ALARA (As Low As Reasonably Achievable). CONTRAST: None. COMPARISON: CT abdomen and pelvis dated 01/22/2025. FINDINGS: Small pleural effusion on the left side. Multifocal infiltrates in the bilateral lung hassan, concerning multifocal pneumonia. Small pericardial effusion. Mild fatty liver. Cholelithiasis around the gallbladder neck with mildly hydropic gallbladder. Moderate diffuse pancreatic atrophy. No focal abnormality within the spleen, adrenals, or kidneys. The urinary bladder is empty with a Kamara's catheter in place. Presumed post hysterectomy status. The right ovary is not visualized, likely surgically absent. Unremarkable left ovary. Percutaneous gastrostomy tube is in place. Mild diffuse thickening in the small and large bowel loops, which could be secondary to inadequate distention or mild acute enterocolitis. A rectal tube is in place. The appendix is not visualized. No inflammatory changes around the cecum. Calcific atherosclerotic disease in the abdominal aorta and its branches. No pathological lymphadenopathy in the abdomen or pelvis. Small to medium ascites and diffuse anasarca. No pneumoperitoneum is evident. No acute bony abnormality is evident. Degenerative osseous changes. Surgical clips in the pelvic region. IMPRESSIONS: Mild diffuse thickening in the small and large bowel loops, which could be secondary to inadequate distention or mild acute enterocolitis. A rectal tube is in place. A percutaneous gastrostomy tube is in place. Cholelithiasis with mildly hydropic gallbladder, recommend ultrasound of the gallbladder for an optimal evaluation. Small to medium ascites and generalized anasarca. Small pleural effusion on the left side. Multifocal infiltrates in the bilateral lung hassan, concerning multifocal pneumonia. Small pericardial effusion. Overall, there is an interval worsening compared to the previous examination. /[place] DICTATED BY: RADHA BECERRA Jr., MD DATE: 02/05/25609 ELECTRONICALLY SIGNED BY: RADHA BECERRA Jr., MD DATE: 02/05/25609 ASSESSMENT: Acute metabolic encephalopathy Hemorrhagic shock vs Septic Shock Small mobile vegetation seen attached on the anterior mitral valve annulus measuring 1.2cm x 1.0cm on 2 D echo 02/02/25 Rule out endocarditis-pending Blood cultures Oliguria - urine output 0.03 mL/kg per hour (01/31/25) Cerebrovascular accident-chronic infarct as per MRI brain Chronic infarct with hemosiderin staining in the left insular cortex. 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 Unstageable wound on sacrum Chronic infarct in the right frontal and parietal lobes. on MRI Brain 02/02/25 Acute on chronic anemia - rule out hemolysis Thrombocytopenia Hyperammonemia Lactic acidosis Intractable metabolic acidosis Mild Pulm HTN RVSP 37.5mmHg 2+ GRAM NEGATIVE RODS in Respiratory Culture - r/o Ventilator Associated Pneumonia Hypernatremia Multiple organ dysfunction syndrome Acute complicated cystitis - ESBL Acute hypoxic respiratory failure status post intubation for airway protection Hematemesis POA Peg tube placement Peptic ulcer disease Deep venous thrombosis of bilateral upper limbs Starvation ketoacidosis Hypokalemia Hypophosphatemia Unstageable wound on sacrum Fecal impaction Obesity BMI 36.6 Knee injury versus underlying CKD Diabetes mellitus type 2 with associated hyperglycemia Severe hypoalbuminemia Hypertension Debility Small pericardial Effusion Left-sided pleural effusion PLAN: Acute hypoxic respiratory failure status post intubation for airway protection - critical care is on board and we will follow critical care recommendations regarding ventilator and sedation protocol - The nurse tried to extubate her but she could not extubate as she is not waking up and she can't not protect her airway. - Patient is off sedation. Failed SBT trial on 02/03 - Currently intubated and ventilated on ACVC mode. FiO2 30, VT 400, peep 6, respiratory rate 20 Acute on chronic anemia, Thrombocytopenia - Hemoglobin trends from (02/04/25) to (02/05/25) is 8.9>9.1>9.5>9.2. PRBC was given on 02/04/25 - Previously Patient's hemoglobin dropped to 6.8 on 02/03/25 for which she was transfused 1 PRBC. Following CBC showed 7.7 hemoglobin - Yesterday her hemoglobin dropped to 6.7 again, for which she was given another PRBC. Keep hemoglobin above 7 and transfuse accordingly. - There is concern for hemolysis. Follow up with fibrinogen, haptoglobin, D- dimers, Sera direct and pathology smear review. Fibrinogen - 612, [id number] - Her platelet count has been trending down 65>62. Will Follow up with heparin induced platelet antibody test. - Follow up with morning CBC reports. Hemorrhagic shock versus Septic Shock - Patient is currently on dena 0.3. Keep map above 65. - Patient's Hemoglobin trends from (02/04/25) to (02/05/25) is 8.9>9.1>9.5>9.2. Will Transfuse PRBC if necessary and keep hemoglobin above 7. - Respiratory cultures are showing 2+ Gram-negative tessa. Procalcitonin is 1.95. Lactic acid today 6.8. Respiratory culture came back positive for klebsiella pneumonia, Pseudomonas aeruginosa. - Continue Merrem and linezolid. - Restrict fluid as patient is in volume overload with oliguria. - Small mobile vegetation were seen attached on the anterior mitral valve annulus measuring 1.2cm x 1.0cm on 2 D echo (02/02/25). Follow up with blood culture results. - we will follow critical Care recommendations. Oliguria - Patient's urine output on 01/31/2025 was 0.03 mL/kg per hour with Total urine output, 75 mL. - On 02/04/2025, total urine output is 350 mL - Urine output today 02/05/25: 100ml - Patient was given Lasix yesterday as per Nephrology- - He has been started on lasix and metolazone today. - Patient's creatinine and BUN from today are 3.5 and 49 respectively. - Monitor input and output as well as electrolytes. Avoid nephrotoxic drugs. - Evaluate patient for volume overload and fluid repletion. - Patient was given 500 mL lactated Ringer on 02/03. - Follow up with the Nephrology recommendations. No hemodialysis in plan currently as per nephrology Acute metabolic encephalopathy, Hyperammonemia, lactic acidosis, intractable metabolic acidosis - Her ammonia levels from 01/31/2025 were 48. Lactulose p.o. was added on 02/01. - On 02/02, ammonia levels were again elevated 106. Lactulose MA was added. - On 02/03, ammonia is 58. It sam to 204 on 02/04. Lactulose PO has been started today - Follow up with ammonia levels. - On 02/02, lactic acid is elevated by 5. Repeat values today showed 9.7 today. - Patient's anion gap is also elevated. ABG on 02/02 showed pH 7.44, pCO2 19, HC03 12.9 - Patient had bicarb deficit for which sodium bicarbonate was added to the medication regimen. Patient continues to have bicarb deficit. He is currently receiving 50 mEq sodium bicarb IV q.6 H. - Follow up with the BMP and lactic acid. - Follow up with the blood culture, urine culture, stool culture, respiratory culture to identify the suspected source of infection. Respiratory culture came back positive for klebsiella pneumonia, Pseudomonas aeruginosa. Continue patient on Merrem and linezolid. - Maintain MAP above 65 to improve end organ tissue perfusion. Patient is currently on 0.3 dena. Hematemesis, peptic ulcer disease, POA - patient was admitted to ICU - in reference to hematemesis. H&H was trended q.4 hours. Type and screen was done. Plan is to keep hemoglobin above 7. On 01/25/2025 her hemoglobin was 5.9, we gave 1 PRBC. Repeat Hb is 7.4. - The patient was started on Protonix drip and octreotide drip. Critical care stopped her Protonix drip as she was fluid overloaded and they started protonix 40 mg b.i.d. - EGD done by Gastroenterology and have reported no active bleeding and clots in esophagus. - GI wanted to do another EGD, and colonoscopy showed no evidence of bleeding. - Bleeding scan showed no evidence of gastrointestinal hemorrhage. - gastroenterology recommended follow with them in 1 week after discharge. - Today her hemoglobin was 9.5. Patient receive PRBC yesterday. - We will continue to follow recommendations from critical Care and Gastroenterology. Cerebrovascular accident - chronic infarct - CT scan of the brain on 01/31/2025 showed 1. Ill-defined hypodensity with loss of rodriguez-white matter interface in the right frontal and high parietal lobes concerning for possible infarct. No acute intracranial hemorrhage. - MRI brain showed Chronic infarct in the right frontal and parietal lobes. 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 Bilateral sphenoid sinusitis and mastoiditis. - Follow up with the Neurology recommendations. Acute complicated cystitis - ESBL - Patient's urine culture came back positive for ESBL E coli - Patient was started on Zosyn q.8h and linezolid q.12h. - On 02/02, patient has been switched to Merrem and linezolid. DVT of bilateral upper limbs -US doppler of both upper limbs, results showed evidence of DVT. -Consulted gastroenterology for anticoagulation recommendations. They recommended to give high dose Protonix drip for 48 hours and carafate 1gm PO QID and after 48 hours start heparin drip. -Patient is not a candidate for SVC filter. -for supratherapeutic aPTT, heparin drip was held temporarily Starvation ketoacidosis Today her blood work show that sodium is 152, potassium trends today 2.6>3.1, chloride is 108, bicarbonate is 14. Her urinalysis from 01/24/2025 showed ketones in the urine. Unstageable wound on sacrum - we will request wound care -Wound care recommended to cleanse with normal saline, pat dry, apply medihoney, cover with allevyn, change daily and prnKeep wounds clean and dry , Offlo ading/reposition q 2 hours Hypokalemia Today her blood work potassium trends were 2.6>3.1. She is being maintained on potassium replacement protocol Will repeat her labs tomorrow. Diabetes mellitus type 2 with associated hyperglycemia, Severe hypoalbuminemia, Hypertension, Debility, Small pericardial Effusion, Left-sided pleural effusion - echo showed no pericardial effusion, LVEF of 50-55% - continue insulin sliding scale. It was adjusted on 02/01 as per glucose levels. Lantus was also started as per critical care team. - On 02/03, patient's glucose dropped to 36 for which she was given D5. Lantus has been discontinued. - continue thiamine supplementation - monitor vitals Q8 - monitor a.m. labs - nephrology was consulted and they recommended to discontinue vancomycin, obtain urine analysis and complete renal ultrasound. Patient was started on meropenem and linezolid on 02/02 -Repeated urinalysis, urine electrolytes, urine protein on 01/24/2025. Urinalysis showed turbid urine, protein >300, ketones 5, moderate occult blood, moderate leukocyte esterase, RBC 6 to 10, WBC is TNTC, protein 410.9, sodium is 43, potassium is 36, chloride is 40. Urinalysis on 02/02/25: turbid urine, protein 100, ketones negative, moderate occult blood,leukocyte esterase 500, RBC 26 to 50, WBC is TNTC GI prophylaxis: Pantoprazole ATTESTATION BY PHYSICIAN I have seen and examined the patient. I reviewed the documentation, medical decision making, and treatment plan as noted by the resident physician above. I agree with the findings and plan of care. VON ZAMORA MD, SHAJI MD Feb 05, 2025 14:09
--- NOTE | 2025-02-05 15:42 | PN ---
GASTROENTEROLOGY PROGRESS NOTE Date of Visit: Feb 05, 2025 Time of Visit: 15:38 Events / Notes: [v[70 yo female patient with past medical history for seizures, hypertension, CVA, BKA, who presented to ER with hematemesis. Patient had had EGD with peg tube placement in November 2024 at [facility] and had had an EGD in December at [facility] d/t hematemesis where she was found to have Grade D esophagitis. We were consulted for Hematemesis. Patient underwent an EGD on 01/23/25 and was found to have a non-bleeding tear was found in the lower third of esophagus. Large clot. No active bleeding. LA Grade D esophagitis. Diffuse moderately erythematous mucosa without bleeding in the stomach. A gastric tube was found in gastric body. Patient's WBC of 14.4, hemoglobin of 6.6, patient received 1 unit of PRBC and hemoglobin trended up to 7.1, hematocrit 21.7, platelets 367. Chemistry significant for chloride of 113, BUN 39, creatinine 2.4, glucose 153, calcium 7.0, iron 28, TIBC 44, 63.6% saturation, ferritin 1612. Total bilirubin, AST, ALT, alkaline phosphatase are normal. Total protein of 4.6, albumin 0.9. TSH 7.62. Troponin 507. Patient was found to have DVTs of the upper extremities. We were consulted for anticoagulant recommendations. 01/25/25: HGB trending down to 5.9 this am. Patient's nurse reports patient is having hematochezia. Hemoglobin trended up to 7.4 after 1 unit of RBCs transfused. WBCs at 11.2, platelets 273. Potassium 3.2, chloride 112, carbon dioxide 19, BUN 40, creatinine 2.6. Calcium 7.3, glucose 263, albumin 1.2, total protein 4.4. GI bleed scan showed no evidence of gastrointestinal hemorrhage during the examination acquisition. Plan for EGD and colonoscopy in am. Patient remains intubated. 01/27/25: Patient underwent an EGD and colonoscopy on 01/26/2025 and was found to have many superficial esophageal ulcers with no stigmata of recent bleeding were found. Clotted blood was found in the gastric fundus around 1 L of blood- tinged fluid suctioned from stomach revealing healthy gas gastric mucosa. There is evidence of an intact gastrostomy with a patent G-tube present in the gastric body this was characterized by ulceration. Normal examined duodenum. Colonoscopy findings show the perianal and digital rectal exams were normal. Normal mucosa was found in the entire colon. Old melena type blood found. Patient remains intubated and sedated. No family at bedside. 01/31/25: Patient remains intubated and sedated. FiO2 at 30 %. Patient's heparin has been held since 01/28/2025. Patient continues on pressors, Zosyn and linezolid. Patient's WBC of 7.6, hemoglobin 7.6, hematocrit 22.7 and platelets of 193. Chemistries significant for potassium of 3.2, carbon dioxide of 18, BUN of 31, creatinine 2.8, calcium 7.8, ALT 11 alkaline phosphatase of 451. Total bilirubin 0.4 AST 32, glucose of 280. Patient's total protein of 4.4 and albumin of 0.7. PT of 15.1, INR 1.48. 02/05 - interval concern for bloody output per G -tube in the context of diffuse mucosal oozing also noticed from ETT tube and lines. Family is considering comfort care only. Review of Systems: Unable to completed d/t patient's intubation status Physical Exam: GEN: Intubated and sedated CHEST: Lung auscultation revealed normal breath sounds bilaterally. CARDIAC:Heart sounds are regular. ABD: Soft, non-tender and not distended. Peg tube in place. EXT: Right BKA NEURO: Intubated and sedated. Vital Signs (last 8hr) Date Time Temp Pulse Resp B/P (MAP) Pulse Ox O2 Delivery O2 Flow Rate FiO2 02/05/25 15:12 112 30 02/05/25 14:30 110 32 97/71 (80) 100 02/05/25 14:15 110 32 100 02/05/25 14:00 106 32 91/54 (66) 100 02/05/25 13:47 30 02/05/25 13:45 108 32 104/61 (75) 100 02/05/25 13:40 108 32 104/61 (75) 100 02/05/25 13:30 109 33 93/70 (78) 100 02/05/25 13:15 109 32 108/67 (81) 100 02/05/25 13:11 103 30 02/05/25 13:00 110 32 123/68 (86) 100 02/05/25 12:45 106 30 121/72 (88) 100 02/05/25 12:30 105 31 132/73 (92) 100 02/05/25 12:15 106 30 120/70 (87) 100 02/05/25 12:00 98.4 02/05/25 12:00 101 35 101/57 (72) 100 02/05/25 12:00 100 Ventilator+ 30 30 02/05/25 11:45 101 30 79/50 (60) 100 02/05/25 11:30 101 30 100 02/05/25 11:15 103 30 84/45 (58) 100 02/05/25 11:00 100 8 93/41 (58) 100 02/05/25 10:45 99 27 101/44 (63) 100 02/05/25 10:30 99 13 100/48 (65) 100 02/05/25 10:15 101 7 110/55 (73) 100 02/05/25 10:00 99 30 111/53 (72) 100 02/05/25 09:45 100 30 97/51 (66) 100 02/05/25 09:39 97 30 02/05/25 09:30 98 30 103/51 (68) 100 02/05/25 09:15 99 30 104/42 (62) 100 02/05/25 09:00 98 30 114/61 (78) 100 02/05/25 08:45 99 31 127/57 (80) 100 02/05/25 08:30 136 30 123/64 (83) 100 02/05/25 08:15 98 29 115/77 (90) 100 02/05/25 08:00 98.4 105 29 119/75 (90) 100 02/05/25 08:00 100 Ventilator+ 30 30 02/05/25 08:00 30 02/05/25 08:00 98.4 02/05/25 07:45 99 28 135/81 (99) 100 Laboratory: [ ] Laboratory: Test 02/05/25 13:22 02/05/25 12:25 02/05/25 11:15 02/05/25 04:14 Range/Units Ammonia 123 *H 11-32 umol/L Whole Blood Glucose 124 H 70-110 MG/DL Hemoglobin 9.2 L 12.0-16.0 g/dL Hematocrit 26.5 L 36-48 % Potassium Level 3.1 L 3.5-5.1 mmol/L Prothrombin Time 11.9 H 9.6-11.6 SEC Prothromb Time International Ratio 1.14 0.85-1.15 Fibrinogen 612 *H 180-350 mg/dL Sodium Level 151 H 136-145 mmol/L Chloride Level 108 101-111 mmol/L Carbon Dioxide Level 14 L 21-32 mmol/L Blood Urea Nitrogen 51 H 7-18 mg/dL Creatinine 3.5 H 0.5-1.0 mg/dL Glomerular Filtration Rate Calc 14 >90 mL/min Random Glucose 138 H 70-105 mg/dL Lactic Acid Level 6.8 H 0.8-2.5 mmol/L Total Calcium 8.8 8.5-10.1 mg/dL Total Bilirubin 0.9 # 0.2-1.0 mg/dL Aspartate Amino Transf (AST/SGOT) 36 10-37 U/L Alanine Aminotransferase (ALT/SGPT) 14 12-78 U/L Alkaline Phosphatase 1058 *H 50-136 U/L Total Protein 4.7 L 6.0-8.3 g/dL Albumin 1.2 L 3.5-5.0 g/dL Test 02/05/25 04:10 02/05/25 00:50 02/04/25 14:36 02/04/25 04:49 Range/Units Blood Gas Specimen Type Arterial Arterial Blood pH 7.501 H 7.350-7.450 Arterial Blood Partial Pressure CO2 19 *L 32-45 mmHg Arterial Blood Partial Pressure O2 99.6 83.0-108.0 mmHg Arterial Blood HCO3 14.8 L 21.0-28.0 mmol/L Arterial Blood Oxygen Saturation 97.0 94.0-98.0 % Arterial Blood Base Excess -6.6 L -2.0-3.0 mmol/L Hemoglobin (Blood Gas) 10.5 L 12.0-16.0 g/dL Sodium (Blood Gas) 147 H 136-145 MMOL/L Bedside Potassium (Blood Gas) 2.7 *L 3.4-4.5 MMOL/L Bedside Chloride (Blood Gas) 110 H 98-107 MMOL/L Bedside Glucose (Blood Gas) 138 H 65-95 MG/DL Bedside Ionized Calcium (Blood Gas) 1.24 1.15-1.33 MMOL/L Bedside Lactic Acid (Blood Gas) 7.35 *H 0.36-0.75 MMOL/L Blood Gas Temperature 37.0 35.5-37.0 CELSIUS Blood Gas Respiration Rate 20.0 min. Blood Gas Vent Mode ACVC ROOM AIR FiO2 30.0 % Blood Gas Tidal Volume 400 ml Blood Gas PEEP 6 cm H2O Blood Gas Specimen Comment LR RN KYLE White Blood Count 10.1 4.8-10.8 K/uL Red Blood Count 2.98 L 4.00-5.50 MIL/uL Mean Corpuscular Volume 86.6 79-99 fL Mean Corpuscular Hemoglobin 30.5 27.0-33.0 pg Mean Corpuscular Hemoglobin Concent 35.3 32.0-36.0 g/dL Red Cell Distribution Width 16.9 H 11.0-15.5 % Platelet Count 62 L 130-400 K/uL Mean Platelet Volume 12.7 H 7.5-10.5 fL Immature Granulocyte % (Auto) 1.2 H 0-1 % Neutrophils (%) (Auto) 81.9 H 40.0-77.0 % Lymphocytes (%) (Auto) 11.9 L 21.0-51.0 % Monocytes (%) (Auto) 2.5 L 3.0-13.0 % Eosinophils (%) (Auto) 2.2 0.0-8.0 % Basophils (%) (Auto) 0.3 0.0-5.0 % Neutrophils # (Auto) 8.3 H 1.8-7.7 K/uL Lymphocytes # (Auto) 1.2 1.0-4.8 K/uL Monocytes # (Auto) 0.3 0.1-1.0 K/uL Eosinophils # (Auto) 0.22 0.00-0.70 K/uL Basophils # (Auto) 0.03 0.00-0.20 K/uL Absolute Immature Granulocyte (auto 0.12 0-1 K/uL Nucleated Red Blood Cells 1.8 H 0.0-0.19 % Phosphorus Level 3.2 2.5-4.9 mg/dL Magnesium Level 2.00 1.80-2.40 mg/dL Platelet Morphology Comment See comments Erythrocyte Sedimentation Rate 33 H 0-30 MM/HR D-Dimer Quantitative (PE/DVT) 1397 *H 0-500 ng/mL Lactate Dehydrogenase 188 81-234 U/L Activated Partial Thromboplast Time 53.7 H 26.3-35.5 SEC Procalcitonin 1.95 H 0.05-0.5 ng/mL Current Medications Medications (Trade) Dose Ordered Sig/Arik Route PRN Reason Start Time Stop Time Status Last Admin Dose Admin Albumin Human 50 ml @ 0 mls/hr Q8H6 IV 01/24/25 14:00 01/24/25 22:00 DC 01/24/25 20:45 1,200 MLS/HR Artificial Tears (Artificial Tears) 1 DROP OR AD Q8H OU 01/23/25 19:30 02/22/25 19:29 02/05/25 12:29 1 DROP Bumetanide (Bumex 1mg Vial) 1 mg ONCE PRN IVP AFTER TRANSFUSION 01/24/25 08:00 01/24/25 09:23 DC Bumetanide (Bumex 1mg Vial) 2 mg ONCE PRN IVP AFTER TRANSFUSION 01/24/25 14:00 01/24/25 14:00 DC 01/24/25 13:28 2 MG Cefepime HCl (MAXipime 2 gm vial) 2 gm Q24H IVPB 01/23/25 12:00 01/26/25 12:05 DC 01/26/25 11:38 2 GM Ceftriaxone Sodium (ROCEphine 1G INJ) 1 gm Q24H IVPB 01/22/25 12:00 01/22/25 16:25 DC 01/22/25 14:18 1 GM Chlorhexidine Gluconate (Peridex) 15 ml TID MM 01/23/25 21:00 02/06/25 20:59 02/05/25 13:01 15 ML Dexmedetomidine/ Sodium Chloride (PRECEdex 400MCG/ 100ML-NS) 400 mcg PROTOCOL IV 01/27/25 15:30 02/26/25 15:29 Dextrose (D50w) 50 ml AD PRN IV HYPOGLYCEMIA PROTOCOL 01/22/25 15:30 02/21/25 15:29 02/03/25 05:24 50 ML Epoetin Carlton-epbx (Retacrit) 10,000 unit QWEEK SQ 01/31/25 15:00 03/02/25 14:59 01/31/25 15:16 10,000 UNIT Fentanyl Citrate 100 ml @ 2.5 mls/hr PROTOCOL IV 01/22/25 12:00 01/22/25 11:55 DC Fentanyl Citrate 100 ml @ 2.5 mls/hr PROTOCOL IV 01/22/25 12:00 01/27/25 15:35 DC 01/27/25 05:34 2.5 MLS/HR Furosemide 100 mg/ Sodium Chloride 100 ml @ 0 mls/hr PROTOCOL IV 02/04/25 13:00 02/05/25 12:08 DC 02/04/25 21:39 10 MLS/HR Glucagon (Glucagon 1mg Kit) 1 mg AD PRN IM HYPOGLYCEMIA PROTOCOL 01/22/25 15:30 02/21/25 15:29 Heparin Sodium (Porcine) (HEParin 5,000 UNIT VIAL) *calculation based on ACTUAL B... AD PRN IV HEPARIN PROTOCOL 01/27/25 16:30 02/03/25 09:31 DC Heparin Sodium/ Dextrose 250 ml @ 0 mls/hr Q6H IV 01/27/25 16:30 02/03/25 09:28 DC 01/31/25 17:28 0 MLS/HR Insulin Glargine (LANtus 100 UNITS/ML 10 ML VIAL) 10 units BID@0730,2100 SQ 02/01/25 21:00 02/02/25 09:20 DC 02/02/25 08:08 10 UNITS Insulin Glargine (LANtus 100 UNITS/ML 10 ML VIAL) 20 units BID@0730,2100 SQ 02/02/25 21:00 02/03/25 09:50 DC Insulin Human Regular (humuLIN R 100 UNIT/ML 3ML) INSULIN SLIDING SCAL... ACHS SQ 01/22/25 21:00 01/25/25 20:51 DC 01/25/25 16:29 3 UNIT Insulin Human Regular (humuLIN R 100 UNIT/ML 3ML) INSULIN SLIDING SCAL... Q6H6 SQ 01/26/25 10:00 02/01/25 12:57 DC 02/01/25 11:59 3 UNIT Insulin Human Regular (humuLIN R 100 UNIT/ML 3ML) INSULIN SLIDING SCAL... Q6H6 SQ 02/01/25 18:00 03/03/25 17:59 02/05/25 00:39 4 UNIT Lactulose (Constulose 20gm/ 30ml Udcup) 20 gm BID PRN PO CONSTIPATION 02/04/25 12:30 03/06/25 12:29 Leptospermum Honey (Medihoney) 1 APPLICATION DAILY TP 01/26/25 09:00 02/25/25 08:59 02/05/25 10:37 1 APPL Levetiracetam (kepPRA 500 MG TABLET) 500 mg BID PO 01/22/25 21:00 01/22/25 22:13 DC Levetiracetam 500 mg/Sodium Chloride 100 ml @ 400 mls/hr Q12H9 IV 01/22/25 22:00 02/21/25 21:59 02/05/25 10:36 400 MLS/HR Levothyroxine Sodium (SYNTHroid VIAL 100MCG) 100 mcg SYN IV 01/23/25 06:30 02/22/25 06:29 02/04/25 06:08 100 MCG Linezolid 300 ml @ 150 mls/hr Q12H IV 01/24/25 08:00 02/01/25 12:55 DC 02/01/25 08:10 150 MLS/HR Linezolid 300 ml @ 150 mls/hr Q12H IV 02/02/25 09:30 02/04/25 12:16 DC 02/04/25 10:21 150 MLS/HR Magnesium Sulfate 50 ml @ 0 mls/hr PROTOCOL PRN IV Hypomagnesemia 01/22/25 15:30 02/21/25 15:29 01/29/25 08:35 25 MLS/HR Meropenem (Merrem 1gm) 1 gm Q12H IVPB 02/02/25 09:30 02/02/25 11:06 DC Meropenem (Merrem 1gm) 1 gm Q12H IVPB 02/02/25 13:30 02/12/25 13:29 02/05/25 13:00 1 GM Metolazone (zarOXOlyn) 5 mg DAILY PO 02/05/25 09:00 03/07/25 08:59 02/05/25 10:36 5 MG Metronidazole/ Sodium Chloride 100 ml @ 100 mls/hr Q8H6 IVPB 01/22/25 22:00 01/26/25 12:05 DC 01/26/25 06:13 100 MLS/HR Midazolam HCl 50 ml @ 0 mls/hr PROTOCOL IV 01/22/25 12:00 01/27/25 15:35 DC 01/27/25 09:10 5 MLS/HR Norepinephrine 250 ml @ 0 mls/hr PROTOCOL IV 01/22/25 10:00 01/23/25 09:52 DC 01/22/25 14:24 60 MLS/HR Norepinephrine Bitartrate (Norepineph 16 Mg/250ml NS Premix) per protocol PROTOCOL IV 01/23/25 10:00 02/22/25 09:59 02/01/25 20:44 16 MG Nystatin (NystOP 15 GM POWDER) Left gluteal fold BID TP 02/03/25 21:00 03/05/25 20:59 02/05/25 10:37 1 APPL Octreotide Acetate 1250 mcg/ Sodium Chloride 250 ml @ 0 mls/hr PROTOCOL IV 01/22/25 12:30 01/22/25 12:17 DC Octreotide Acetate 1250 mcg/ Sodium Chloride 250 ml @ 0 mls/hr PROTOCOL IV 01/22/25 12:30 01/24/25 09:23 DC 01/22/25 12:41 5 MLS/HR Octreotide Acetate 1250 mcg/ Sodium Chloride 250 ml @ 0 mls/hr PROTOCOL IV 02/05/25 06:00 03/07/25 05:59 02/05/25 06:49 5 MLS/HR Pantoprazole Sodium (PROTonix 40MG INJ) 40 mg BID IVP 01/24/25 21:00 01/24/25 15:02 DC Pantoprazole Sodium (PROTonix 40MG INJ) 40 mg BID IVP 01/28/25 21:00 02/05/25 00:36 DC 02/04/25 20:21 40 MG Pantoprazole Sodium 80 mg/ Sodium Chloride 100 ml @ 10 mls/hr Q10H IV 01/22/25 09:00 01/24/25 09:23 DC 01/24/25 09:17 10 MLS/HR Pantoprazole Sodium 80 mg/ Sodium Chloride 100 ml @ 10 mls/hr Q10H IV 01/24/25 15:00 01/28/25 13:39 DC 01/28/25 00:06 10 MLS/HR Pantoprazole Sodium 80 mg/ Sodium Chloride 100 ml @ 10 mls/hr Q10H IV 02/05/25 01:00 03/07/25 00:59 02/05/25 13:01 10 MLS/HR Pharmacy Profile Note (Pharmacy Communication) 1 each ONCE MISC 01/22/25 12:00 01/22/25 11:53 DC Pharmacy Profile Note (Pharmacy Communication) 1 each ONCE MISC 01/22/25 12:00 01/22/25 11:53 DC Pharmacy Profile Note (Pharmacy Communication) 1 each ONCE MISC 01/23/25 13:00 01/23/25 13:09 DC Pharmacy Profile Note (Pharmacy Communication) 1 each ONCE MISC 01/24/25 08:00 01/24/25 07:51 DC Pharmacy Profile Note (Pharmacy Communication) 1 each ONCE MISC 02/02/25 09:30 02/02/25 09:09 DC Phenylephrine HCl 100 mg/Sodium Chloride 250 ml @ 0 mls/hr AD PRN IV TITRATE 01/22/25 17:00 02/02/25 17:22 DC 01/23/25 09:30 0 MLS/HR Phenylephrine HCl 100 mg/Sodium Chloride 250 ml @ 0 mls/hr PROTOCOL IV 02/02/25 17:30 03/04/25 17:29 02/03/25 22:02 0.5 MLS/HR Piperacillin Sod/ Tazobactam Sod (Zosyn 3.375gm+NS 50ml) 3.375 gm Q8H IV 01/26/25 12:30 02/01/25 12:55 DC 02/01/25 12:04 3.375 GM Potassium Phosphate 250 ml @ 42 mls/hr PROTOCOL PRN IV PROTOCOL 02/01/25 15:30 03/03/25 15:29 02/01/25 17:21 42 MLS/HR Potassium Chloride 100 ml @ 50 mls/hr AD PRN IV POTASSIUM PROTOCOL 01/22/25 15:30 01/24/25 07:50 DC Potassium Chloride 100 ml @ 100 mls/hr AD PRN IV POTASSIUM PROTOCOL 01/22/25 15:30 02/21/25 15:29 02/05/25 06:43 100 MLS/HR Potassium Chloride (K-Dur/Klor-Con 20meq) 20 meq AD PRN PO POTASSIUM PROTOCOL 01/22/25 15:30 02/21/25 15:29 01/26/25 06:19 20 MEQ Potassium Chloride (KCl 10% Elixir 20meq/15ml) 20 meq AD PRN PO POTASSIUM PROTOCOL 01/22/25 15:30 02/21/25 15:29 02/02/25 03:29 20 MEQ Propofol (DIPRivan 1000MG/ 100ML) 1,000 mg PROTOCOL PRN IV SEDATION 01/22/25 12:00 01/22/25 11:55 DC Sodium Bicarbonate 150 meq/Dextrose 1,150 ml @ 100 mls/hr [id number] IVP 02/02/25 06:00 02/02/25 09:04 DC 02/02/25 05:45 100 MLS/HR Sodium Bicarbonate (Sodium Bicarbonate) 650 mg BID PO 01/24/25 21:00 02/04/25 19:19 DC 02/04/25 10:31 650 MG Sodium Bicarbonate (Sodium Bicarbonate) 650 mg BID PO 02/01/25 21:00 02/01/25 13:00 DC Sodium Bicarbonate (Sodium Bicarbonate) 1,300 mg TID PO 02/04/25 21:00 02/23/25 20:59 02/05/25 10:36 1,300 MG Sodium Bicarbonate (Sodium Bicarb 50meq 50ml Vial) 50 meq Q6H IV 02/02/25 15:00 02/04/25 14:59 DC 02/04/25 10:36 50 MEQ Sodium Chloride 1,000 ml @ 150 mls/hr Q6H40M IV 01/22/25 12:00 01/23/25 10:56 DC 01/23/25 02:45 150 MLS/HR Sucralfate (Carafate) 1 gm BID PO 01/23/25 21:00 01/23/25 11:41 DC Sucralfate (Carafate) 1 gm BID PO 02/02/25 21:00 02/23/25 16:59 02/05/25 10:36 1 GM Sucralfate (Carafate) 1 gm QID PO 01/24/25 17:00 02/02/25 18:53 DC 02/02/25 17:25 1 GM Sucralfate (Carafate) 1 gm TID PO 01/23/25 14:00 01/24/25 15:02 DC 01/24/25 13:28 1 GM Thiamine HCl 100 mg/Sodium Chloride 50 ml @ 100 mls/hr Q24H IV 01/23/25 14:00 01/25/25 14:29 DC 01/25/25 13:53 100 MLS/HR Vancomycin HCl (Vancomycin 750mg) 750 mg Q24H IVPB 01/23/25 17:00 01/23/25 10:56 DC Vancomycin HCl (Vancomycin Protocol) 1 each AD IV 01/22/25 15:00 01/23/25 10:56 DC Vasopressin 40 units/Sodium Chloride 40 ml @ 0 mls/hr PROTOCOL IV 01/25/25 09:30 02/24/25 09:29 Wound Care/ Dressing Products (Venelex Ointment) BID TP 01/25/25 21:00 01/25/25 15:58 DC Wound Care/ Dressing Products (Venelex Ointment) 1 APPL BID TP 02/03/25 21:00 03/05/25 20:59 02/05/25 10:36 1 GM Diagnostics / Radiology: [COPY/PASTE HERE IF NO REPORTS PLEASE DELETE SECTION] Assessment: [Acute blood loss anemia LA grade D esophagitis Esophageal tear ] Plan: Patient with evidence of mucosal hemorrhage in the context of critical illness. Agree eval for coagulopathy/DIC On multiple pressors and incr respiratory support. Renal failure. Discuss with Mr Wilhelm at bedside. EGD with more risk than benefit. He reports considering transition to comfort care only. In the meantime continue IV PPI BID, carafate per G tube, monitor G tube output, stool output and h&h. Let us know if clinical situation changes. FAUSTINA Rodriguez MD, MD Feb 05, 2025 15:42
[2025-02-05] MEDS: VASOpressin 20 UNITS/ML 1ML Vi 40 UNITS in 0.9%NACL 50ML 40 ML IV SCH (17:27)
[2025-02-05] MEDS: SODIUM BICARB 50MEQ 50ML VIAL IV ONE ×2 (18:39→23:12)
--- NOTE | 2025-02-05 19:15 | PN ---
FOLLOWUP PROGRESS NOTE SUBJECTIVE: A 70-year-old female who has had a prolonged hospital course. She remains intubated in the ICU. The patient with a history of diabetes mellitus and vascular disease. The patient initially presented to the hospital with GI bleeding. The patient with underlying respiratory distress requiring mechanical ventilation. She continues to do poorly from a general medical standpoint including from a renal standpoint. Urine output continues to be marginal. She remains on the diuretic. She is a DNR per family request and she is being seen for all of the above. REVIEW OF SYSTEMS: She is intubated in the ICU. PHYSICAL EXAMINATION: VITAL SIGNS: Blood pressure is 141/71. Pulse is 100. Afebrile. GENERAL: She is a chronically ill female lying in bed in the ICU. HEENT: Atraumatic. Pupils are equal, round, and reactive to light. Oropharynx is without exudate. Nares clear. NECK: There is no JVP. There is no thyromegaly. No masses. CARDIOVASCULAR: Regular. There is no S3 or S4 or gallop. LUNGS: Coarse with equal thoracic movement. ABDOMEN: Abdomen is soft, nondistended, and nontender. EXTREMITIES: Extremities reveal no clubbing or cyanosis. NEUROLOGICAL: She is awake. She is alert. Neurologically, she is unchanged. LABORATORY DATA: Hemoglobin 9.2, hematocrit 28, sodium 151, BUN 51, creatinine 3.5. IMPRESSION: Acute on chronic renal failure. Respiratory failure, on the vent. Diabetes mellitus. Anemia. PLAN: I did have a long discussion with the patient's . The patient's overall prognosis is quite poor. The patient would not be a candidate for any form of renal replacement therapy. She is a DNR per family request. Family now contemplating possible withdrawal of care and will follow the patient closely. TID: [id number] RECEIPT: [id number]
[2025-02-06] VITALS (22 sets, daily range): BP systolic 70–116; BP diastolic 34–78; PULSE 68–127; RESP 5–39; O2SAT 98–100
[2025-02-06 01:01] LABS: ABG BASE EXCESS -14.2 mmol/L (-2.0-3.0); ABG HCO3 9.2 mmol/L (21.0-28.0); ABG OXYGEN SATURATION 95.6 % (94.0-98.0); ABG PCO2 16 mmHg (32-45); ABG PH 7.370 (7.350-7.450); CARBON MONOXIDE 0.2 % (0.5-1.5); DEVICE COMMENT LR RNTED; PO2, ARTERIAL BG 95.8 mmHg (83.0-108.0); TEMPERATURE, CELSIUS BG 37.0 CELSIUS (35.5-37.0); VENT MODE, BG ACVC (ROOM AIR)
--- NOTE | 2025-02-06 03:21 | NUR ---
COMFORT MEASURES AT 0100 AM, DAUGHTER ARRIVED AND AT PT BEDSIDE WITH PT . AT 0140 AM, M[employer]I [employer] TECHNICIAN GAVE ORDERS TO WITHDRAW CARE AND PROVIDE COMFORT MEASURES. REFER TO PREVIOUS NOTE FOR ORDERS. AT 0155 AM PATIENT IS OFF PRESSORS AND ORDERED MEDICATIONS GIVEN. AT 0229 AM PT EXTUBATED, FAMILY AT BEDSIDE ALL QUESTIONS ANSWERED.
--- NOTE | 2025-02-06 03:40 | NUR ---
PRONOUNCEMENT SUMMONED BY STAFF TO PATIENT'S ROOM. PATIENT SUPINE IN BED WITH FAMILY MEMBERS AT THE BEDSIDE. NO HEARTBEAT AUDIBLE ON AUSCULTATION AFTER 5 MINUTES, NO BLOOD PRESSURE OR LUNG SOUNDS AUDIBLE ON AUSCULTATION. CLERICAL ASSISTANT REVEALS ASYSTOLE. PUPILS FIXED AND DILATED. TIME OF : 339
--- NOTE | 2025-02-06 05:15 | NUR ---
Post mortem care performed. 0420 - Post mortem care performed. Kamara catheter and rectal tube discontinued. Central line and PEG tube in place. 0510 - Pt's body placed in body bag. Security called and pt moved to [facility] [place]. maintenance supervisor, GERMAN, notified.
[2025-02-06] MEDS ORDERED: SODIUM BICARB 50MEQ 50ML VIAL IV ONE (06:00)
--- NOTE | 2025-02-06 06:00 | NUR ---
KENYA RULED OUT PATIENT FOR TISSUE, EYE AND ORGAN. TOW BAR DRIVER ZAK. PEDODONTIST NOTIFIED.
--- NOTE | 2025-02-06 07:08 | HMCIMG ---
EXAMINATION: ULTRASOUND OF THE ABDOMEN (LIMITED) WITH COLOR DOPPLER. CLINICAL HISTORY: Elevated liver enzymes. COMPARISON: Ultrasound of the abdomen dated 01/23/2025, CT abdomen and pelvis without contrast dated 02/05/2025. TECHNIQUE: Real-time grayscale ultrasound images of the abdomen. In addition, color Doppler is medically necessary to perform in order to evaluate vascularity and blood flow. FINDINGS: Liver: Bulky in caliber, the right hepatic lobe measures 17.8 cm in the craniocaudal dimension. There is increased echogenicity of the hepatic parenchyma. There is no focal hepatic abnormality or intrahepatic biliary ductal dilatation. There is normal spectral Doppler of the main portal vein. Gallbladder: Within normal limits with normal wall thickness (0.22 cm). No hyperemia or pericholecystic free fluid. There is a calculus that measures about 1.2 cm. Common bile duct is normal in caliber, measuring 0.49 cm. Pancreas: obscured by overlying bowel gas. The right kidney is normal in caliber, the right kidney measures 8.0 x 4.0 x 3.2 cm in its craniocaudal, AP, and transverse dimensions respectively. There is normal renal cortical thickness, and increased cortical echogenicity. There is no renal calculus or hydronephrosis. There is small free fluid in the right upper quadrant. IMPRESSION: Hepatomegaly with hepatic steatosis. Cholelithiasis. No cholecystitis. Right renal parenchymal disease. /Jai
--- NOTE | 2025-02-07 21:35 | DS ---
NOTE Date/Time of : [02/06/25 03:40 ] Code Status: [Do Not Resuscitate] Events prior to patient's : 70-year-old female with past medical history of diabetes mellitus type 2, hypertension, anemia, history of CVA, history of right below-knee amputation who presented to the hospital secondary to hematemesis. Patient was intubated and sedated. The patient was noted to have black colored vomit at home which started 1 day before coming. She had a history of peptic ulcer disease. She also had a PEG tube placed around two weeks ago. Peg tube was placed in [facility]. Labs were Notable for white count of 9.1, hemoglobin was 9.1, MCV was 86.7, platelet count was 456 K, sodium was 138, potassium was 3.1, bicarb was , creatinine was 1.7, glucose was 234, alk-phos was 153, total protein was 5.0, albumin was 0.9, lipase was negative normal Underwent a CT abdomen pelvis which showed no acute process in the CT abdomen without IV contrast. Patient was noted to have cystic structure in the right adrenal region measuring 5.9 x 3.9 cm. The patient also had fecal impaction noted. In the ED patient had episode of hematemesis and she was intubated for airway protection by ED provider. 01/23/2025: She was sedated and not responsive during my visit. GI performed EGD in the morning and they have observed no active bleeding. Nurse notified an unstageable wound on sacrum for which Wound consult was placed. 01/24/2025: She was sedated and not responsive during my visit. Her arms were swollen. blood pressure 97/51. Her labs were: Hb 6.6, [id number], BUN 39, creatinine 2.4, iron 28, TIBC 44, % saturation 63.6, TSH 7.62. Her urine culture grew 10,000-50,000 CFU. Identification and susceptibility are in process. Blood culture show no growth after 48 hours. Renal ultrasound show renal parenchymal disease. she received a blood transfusion. After the transfusion her hemoglobin was 7.1. We ordered a bilateral upper limb doppler which showed evidence of DVT. Gastroenterology was consulted to give recommendations on starting anticoag ulation. GI recommended high dose Protonix drip for 48 hours and carafate 1gm PO QID, after 48 hours start heparin drip. IR was called to ask about the option of placing an SVC filter, and they recommended mechanical thrombectomy. The patient is not a good candidate for an SVC filter. A urinalysis, urine electrolytes, urine protein were ordered today. Urinalysis showed turbid urine, protein >300, ketones 5, moderate occult blood, moderate leukocyte esterase, RBC 6 to 10, WBC is TNTC, protein 410.9, sodium is 43, potassium is 36, chloride is 40. 01/25/2025: She was sedated and not responsive during my visit. Her labs were: Hb 5.9, WBC 11.2, Cl 112, potassium 3.2, CO2 19, BUN 40 creatinine 2.6. As her hemoglobin was low we gave a transfusion and the repeat Hb was 7.4. Gastroenterology will do EGD and colonoscopy tomorrow morning. Hematology is consulted and they recommended same management. Wound care recommended to cleanse with normal saline, pat dry, apply medihoney, cover with allevyn, change daily and prnKeep wounds clean and dry , Offloading/reposition q 2 hours. Bleeding scan showed no evidence of gastrointestinal hemorrhage. 01/26/2025: She was sedated and not responsive during my visit. Her arms are swollen. blood pressure 96/45. Her labs were: Hb is 8.7, K is 2.8, Cl is 112, CO2 is 19, BUN is 37, creatinine is 2.5, Albumin is 1.1. We replaced the potassium and the repeat potassium levels are 2.8 and 3.1. 01/27/2025: Urine culture showed ESBL which is sensitive to Zosyn, meropenem and levofloxacin. She underwent endoscopy and colonoscopy yesterday which showed no evidence of bleeding. Gastroenterology recommended to follow within 1 week after discharge. Chest x-ray showed minimal pulmonary congestion. 01/28/2025: She was sedated and not responsive during my visit. Her vital signs are in the normal range except for blood pressure 97/55. Yesterday the nurse tried to extubate her but she could not extubate as she is not waking up and she can't not protect her airway. She is currently on heparin drip. Critical care stopped her Protonix drip as she is fluid overloaded and they started protonix 40 mg b.i.d. 01/29/2025: She was sedated and not responsive during my visit. Her vital signs are in the normal range except for blood pressure is 90/48. Chest x-ray showed that there is an infiltrate in the left lower lung with a left-sided pleural effusion. She is currently on heparin drip and Protonix 40 mg b.i.d. 01/30/2025: She was evaluated at the bedside this morning. As per nurse she passed black tarry stool this morning. She is sedated and intubated at tidal volume 400 mL/minute, FiO2 100%, peep 5 and RR 14. She is on pressor support with Levophed 0.05. She is continued on linezolid, Zosyn, levothyroxine, levetiracetam, Protonix, Levophed. Heparin drip held for temporarily because of supratherapeutic APTT. 01/31/2025: She was seen and evaluated at the bedside this morning. As per nurse she passed greenish colored stool this morning. She is off sedation medicine but not responding to stimuli. CT brain has been ordered for further evaluation. She continues to remain intubated at tidal volume 400 mL/minute, FiO2 30%, peep 5 and RR 14. She is continued on linezolid, and Zosyn. Cr and BUN this morning have been 2.8 and 31 respectively. Urine output in past 24 hours have been 0.03ml/kg/hr (75ml). We have ordered ammonia levels this morning. 02/01/2025: She continues to be unresponsive with sluggish movement of eyes. She is off sedation and vasopressor support. Her CT scan done yesterday showed Ill-defined hypodensity with loss of rodriguez-white matter interface in the right frontal and high parietal lobes concerning for possible infarct. She will further undergo MRI and EEG. Neurology is on the board. Her ammonia levels were elevated (48) for which lactulose was added today. Due to hyperglycemia, sliding scale insulin was also adjusted. 02/02/2025: Her daughter was on the phone and expressed concerns about the patient. We went over the progress so far and explained patient's condition to the family members. Her ammonia has jumped up to 106 for which lactulose OK has been added. Sliding scale insulin was adjusted and Lantus was added because of consistent hyperglycemia. Her lactic acid is elevated at 5 and repeat values showed 5.8. Bicarb deficit was also present for which sodium bicarbonate has been added to the patient's medication regimen. Patient's urine output in the past 24 hours is 150 mL. 02/03/2025: Patient's condition has deteriorated as compared to yesterday with Hb dropping below to 6.8 and Lactic acid rising to 9.2. So far, sodium bicarbonate hasn't improved metabolic acidosis. During my time of evaluation, patient was unresponsive, even to sternal rub. Her Urine output in the past 24 hours has been 200ml. W 02/04/2025: She continues to be intubated and ventilated in ACVC. FiO2 30, VT 400, peep 6, respiratory rate 20. Patient is still maintained on dena 0.3. Her hemoglobin dropped again today to 6.7 from 7.7 after blood transfusion. She has received another PRBC today. Her platelet count also dropped to 74. Fibrinogen, D-dimers, haptoglobin, Sera direct and pathology smear review have been ordered in order to further evaluate repeat drop in blood counts. Lactic acid continues to be elevated 9.7 with patient in intractable metabolic acidosis. Ammonia is again elevated 204. Patient was accompanied by her with whom we discussed the patient's condition and also Nephrology not recommending hemodialysis at the moment. Her urine output in the past 24 hours has been 350. Respiratory cultures are showing preliminary 2+ GRAM NEGATIVE RODS. Patient is currently on Merrem and linezolid. 02/05/25: Platelet count has been trending down 65k to 62K today. Fibrinogen today was 612, D-Dimer is 1397. Lactic acid trending down 9.7>7.3>6.8. Ammonia was 204 yesterday, ordered ammonia again today will manage based on results. Patient was accompanied by her with whom we discussed the patient's condition and he is thinking about deciding to put her on only comfort care, he hasn't decided yet. Her urine output was 100ml. Respiratory culture came back positive for klebsiella pneumonia, Pseudomonas aeruginosa. She continues to be intubated and ventilated in ACVC. FiO2 30, VT 400, peep 6, respiratory rate 20. Patient is still maintained on dena 0.3. Events related to : [ Pt remained intubated and mechanically ventilated on assist control mode (VT 400 mL, RR 18, PEEP 5, FiO2 30%). Off sedation for several days but not awakening; GCS 6. Pt became increasingly hypotensive and per nurse she had to go up on the pressors. HH 9.05/22.8 Plt count of 62K. sputum culture growing Klebsiella pneumonia and Pseudomonas aeruginosa. Chest XR impression: Left basilar infiltrate with pleural effusion. Ammonia continued to be elevated despite lactulose. CRP and ALP were also persistently elevated. As of 02/05, sodium 151, BUN 51, creatinine 3.5. As per nephrology eval, the patient was not a candidate for any form of renal replacement therapy. As per GI eval, "Patient with evidence of mucosal hemorrhage in the context of critical illness. Agree eval for coagulopathy/DIC On multiple pressors and incr respiratory support. Renal failure. Discuss with Mr Wilhelm at bedside. EGD with more risk than benefit. He reports considering transition to comfort care only. In the meantime continue IV PPI BID, carafate per G tube, monitor G tube output, stool output and h&h." 02/06/25 03:21, As per Evangelina Hernandez Rn RN, "COMFORT MEASURES AT 0100 AM, DAUGHTER ARRIVED AND AT PT BEDSIDE WITH PT . 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 REFER TO PREVIOUS NOTE FOR ORDERS. AT 0155 AM PATIENT IS OFF PRESSORS AND ORDERED MEDICATIONS GIVEN. AT 0229 AM PT EXTUBATED, FAMILY AT BEDSIDE ALL QUESTIONS ANSWERED." 02/06/25 03:40, As per Fabiana Carmona Rn RN, "PRONOUNCEMENT SUMMONED BY STAFF TO PATIENT'S ROOM. PATIENT SUPINE IN BED WITH FAMILY MEMBERS AT THE BEDSIDE. NO HEARTBEAT AUDIBLE ON AUSCULTATION AFTER 5 MINUTES, NO BLOOD PRESSURE OR LUNG SOUNDS AUDIBLE ON AUSCULTATION. WIND DEVELOPMENT DIRECTOR REVEALS ASYSTOLE. PUPILS FIXED AND DILATED. TIME OF : 339" Cause: [Respiratory failure following withdrawal of mechanical ventilation as per family's decision for Comfort care measures] Manner/Autopsy: [ NO ] Provider Pronouncing : [Dr. Mason Hauser] Attending Physician: [Dr. Mason Hauser] LOLA CHEUNG MD Feb 07, 2025 21:35
== END 2025-02-06 03:40 | DRG 870 ==
LOC: EDH 08:07 → EDHIP 11:43 → 2CH 16:47
PROVIDERS: ADMIT Internal Medicine; ATTEND Internal Medicine
PROC: 5A1955Z Respiratory Ventilation, Greater than 96 Consecutive Hours (ICD-10-PCS; principal; 2025-01-22)
PROC: 0BH17EZ Insertion of Endotracheal Airway into Trachea, Via Natural or Artificial Opening (ICD-10-PCS; 2025-01-22)
PROC: 0DJ08ZZ Inspection of Upper Intestinal Tract, Via Natural or Artificial Opening Endoscopic (ICD-10-PCS; 2025-01-23)
PROC: 30233N1 Transfusion of Nonautologous Red Blood Cells into Peripheral Vein, Percutaneous Approach (ICD-10-PCS; 2025-01-24)
PROC: 0DJ08ZZ Inspection of Upper Intestinal Tract, Via Natural or Artificial Opening Endoscopic (ICD-10-PCS; 2025-01-26)
PROC: 5A09357 Assistance with Respiratory Ventilation, Less than 24 Consecutive Hours, Continuous Positive Airway Pressure (ICD-10-PCS; 2025-01-31)
PROC: 5A09357 Assistance with Respiratory Ventilation, Less than 24 Consecutive Hours, Continuous Positive Airway Pressure (ICD-10-PCS; 2025-02-01)
PROC: 5A09357 Assistance with Respiratory Ventilation, Less than 24 Consecutive Hours, Continuous Positive Airway Pressure (ICD-10-PCS; 2025-02-02)
DX: A41.9 Sepsis, unspecified organism (principal); J96.01 Acute respiratory failure with hypoxia; G92.8 Other toxic encephalopathy; K22.11 Ulcer of esophagus with bleeding; R65.21 Severe sepsis with septic shock; E46 Unspecified protein-calorie malnutrition; I31.39 Other pericardial effusion (noninflammatory); J90 Pleural effusion, not elsewhere classified; N17.9 Acute kidney failure, unspecified; N30.00 Acute cystitis without hematuria; E72.20 Disorder of urea cycle metabolism, unspecified; D62 Acute posthemorrhagic anemia; E87.29 Other acidosis; I85.00 Esophageal varices without bleeding; I82.A11 Acute embolism and thrombosis of right axillary vein; I82.B11 Acute embolism and thrombosis of right subclavian vein; J98.11 Atelectasis; J81.1 Chronic pulmonary edema; Z68.1 Body mass index [BMI] 19.9 or less, adult; Z66 Do not resuscitate; R57.8 Other shock; D75.839 Thrombocytosis, unspecified; E11.65 Type 2 diabetes mellitus with hyperglycemia; E66.9 Obesity, unspecified; E83.51 Hypocalcemia; E87.6 Hypokalemia; E88.09 Other disorders of plasma-protein metabolism, not elsewhere classified; K27.9 Peptic ulcer, site unspecified, unspecified as acute or chronic, without hemorrhage or perforation; D50.9 Iron deficiency anemia, unspecified; E11.22 Type 2 diabetes mellitus with diabetic chronic kidney disease; E11.51 Type 2 diabetes mellitus with diabetic peripheral angiopathy without gangrene; E87.70 Fluid overload, unspecified; I12.9 Hypertensive chronic kidney disease with stage 1 through stage 4 chronic kidney disease, or unspecified chronic kidney disease; N18.9 Chronic kidney disease, unspecified; N27.0 Small kidney, unilateral; I70.0 Atherosclerosis of aorta; K76.0 Fatty (change of) liver, not elsewhere classified; K80.20 Calculus of gallbladder without cholecystitis without obstruction; K56.41 Fecal impaction; J32.3 Chronic sphenoidal sinusitis; E83.39 Other disorders of phosphorus metabolism; D69.6 Thrombocytopenia, unspecified; E87.5 Hyperkalemia; K31.89 Other diseases of stomach and duodenum; X58.XXXA Exposure to other specified factors, initial encounter; I27.20 Pulmonary hypertension, unspecified; Z68.36 Body mass index [BMI] 36.0-36.9, adult; Z74.01 Bed confinement status; Z86.73 Personal history of transient ischemic attack (TIA), and cerebral infarction without residual deficits; Z87.11 Personal history of peptic ulcer disease; Z89.511 Acquired absence of right leg below knee; Z93.1 Gastrostomy status; Z51.5 Encounter for palliative care; Z89.512 Acquired absence of left leg below knee; Y93.89 Activity, other specified; Y92.89 Other specified places as the place of occurrence of the external cause; Y99.8 Other external cause status
CPT/HCPCS: 31500; 36415; 36430; 36569; 36600; 43235; 45378; 70450; 70551; 71045; 74018; 74176; 76705; 76770; 78278; 80048; 80051; 80053; 80202; 81001; 82010; 82140; 82435; 82550; 82570; 82728; 82803; 82947; 82948; 83010; 83036; 83540; 83550; 83605; 83615; 83690; 83735; 84100; 84132; 84145; 84156; 84295; 84300; 84425; 84439; 84443; 84481; 84484; 84550; 85014; 85018; 85025; 85027; 85378; 85384; 85610; 85651; 85730; 86022; 86140; 86850; 86880; 86900; 86901; 86923; 87040; 87071; 87086; 87186; 87205; 87426; 87804; 93005; 93306; 93356; 93970; 94002; 94003; 96374; 99291; A9512; G0378; J0692; J0696; J1171; J1644; J1756; J1815; J1938; J1953; J2020; J2185; J2250; J2270; J2354; J2371; J2470; J2543; J2704; J3010; J3360; J3411; J3475; J3480; J3490; J7030; J7050; J7070; P9016; P9046; P9047; A4215; A9900; C1751; J3375; Q5106